=== PATIENT | female | born 1935 | race Caucasian/White ===

== ENCOUNTER 2016-10-11 09:37 | Inpatient (IN) | payer OTHER, MEDICARE ==
[~2016-10-11] VITALS: Ht 149.9 cm; Wt 55.0 kg
[2016-10-11] VITALS (7 sets, daily range): BP systolic 126–164; BP diastolic 57–68; PULSE 74–119; RESP 16–20; TEMP 97.5–98.5; O2SAT 94–98
[~2016-10-11 09:37] MED LIST: CART240C4 PO; CITRTAB8 PO; GLUCTAB OR; HYDR12.57 PO; LISI-360 PO; NEXI40CA PO
[2016-10-11] MEDS ORDERED: MECLIZINE HCL 25 MG TAB PO ONE (10:30)
[2016-10-11] MEDS ORDERED: MORPHINE SULFATE 4 MG/ML INJ IV PUSH ONE (10:30)
[2016-10-11] MEDS ORDERED: SODIUM CHLORIDE 0.9% FLUSH 10 ML FLUSH IV FLUSH PRN ×2 (10:30→14:00)
--- NOTE | 2016-10-11 11:07 | PD ---
HPI Chief Complaint: Dizziness Time Seen by Provider: 10:29 Travel History International Travel<30 days: No Contact w/Intl Traveler<30days: No Traveled to known affect area: No History of Present Illness HPI 80yo F with PMH of vertigo presents to the ED with multiple complaints. States she has been falling frequently and her last fall was 3 days ago and she hit her head. She has a history of vertigo and always feels dizzy. Also with chronic abdominal pain. Pt has diffuse pain in her abdomen and also back. She states that she also always feels sob but not more sob right now. States she had throbbing left sided chest pain 2-3 days ago but no chest pain now. Denies any fever, nausea, vomiting, focal weakness or numbness. PFSH Past Medical History Blood Disorders: No Heart Rhythm Problems: No Cancer: No Cardiovascular Problems: Yes High Cholesterol: No Chemotherapy: No Chest Pain: Yes Congestive Heart Failure: No Diabetes: Yes Diminished Hearing: No Endocrine: No Gastrointestinal Disorders: No Genitourinary: No Headaches: Yes Hypertension: Yes Immune Disorder: No Musculoskeletal: No Neurologic: No Psychiatric: No Reproductive: No Respiratory: No Immunizations Current: Yes Radiation Therapy: No Thyroid Disease: No Ulcer: Yes (STOMACH ULCER) Menopausal: Yes Tubal Ligation: Yes Past Surgical History Appendectomy: Yes (1955) Cholecystectomy: Yes (2002) Other Surgery: Yes (BREAST REDUCTION) Social History Alcohol Use: No Tobacco Use: No Substance Use: No Allergies-Medications (Allergen,Severity, Reaction): Coded Allergies: Cipro (Verified Allergy, Severe, RASH, VOMITING, 10/11/16) Reported Meds & Prescriptions Reported Meds & Active Scripts Active Reported Ecotrin Low Strength (Aspirin) 81 Mg Tabdr 81 Mg PO DAILY Meclizine (Meclizine HCl) 25 Mg Tab 25 Mg PO TID PRN Amitriptyline (Amitriptyline HCl) 10 Mg Tab 10-20 Mg PO HS Aricept (Donepezil HCl) 5 Mg Tablet 5 Mg PO DAILY Lisinopril-Hctz 20-25 Mg Tab 1 Tab PO DAILY Omeprazole 40 Mg Cap 40 Mg PO DAILY Bethanechol 25 Mg Tab 12.5 Mg PO QID Take 1hr before meals and at beditime Glipizide ER (Glipizide) 10 Mg Malgorzata 10 Mg PO DAILY Take with breakfast or first main meal of the day Lipitor (Atorvastatin Calcium) 40 Mg Tab 40 Mg PO HS Review of Systems Except as stated in HPI: all other systems reviewed are Neg Physical Exam Narrative GENERAL: 80yo F not in distress. SKIN: Focused skin assessment warm/dry. HEAD: Atraumatic. Normocephalic. EYES: Pupils equal and round at 4mm bilaterally. EOMI. No nystagmus. No scleral icterus. No injection or drainage. ENT: No nasal bleeding or discharge. Mucous membranes pink and moist. NECK: Trachea midline. No JVD. CARDIOVASCULAR: Regular rate and rhythm. No murmur appreciated. RESPIRATORY: No accessory muscle use. Clear to auscultation. Breath sounds equal bilaterally. GASTROINTESTINAL: Abdomen soft, diffuse tenderness to palpation. No rebound tenderness or guarding. MUSCULOSKELETAL: No obvious deformities. No clubbing. No cyanosis. No edema. NEUROLOGICAL: Awake and alert. No obvious cranial nerve deficits. Motor grossly within normal limits. Normal speech. PSYCHIATRIC: Appropriate mood and affect; insight and judgment normal. Data Data Last Documented VS Vital Signs Date Time Temp Pulse Resp B/P Pulse Ox O2 Delivery O2 Flow Rate FiO2 10/11/16 13:56 109 17 133/66 98 Room Air 10/11/16 09:39 97.5 Orders Electrocardiogram (10/11/16 10:00) Basic Metabolic Panel (Bmp) (10/11/16 10:29) Complete Blood Count With Diff (10/11/16 10:29) Lipase (10/11/16 10:29) Prothrombin Time / Inr (Pt) (10/11/16 10:29) Act Partial Throm Time (Ptt) (10/11/16 10:29) Urinalysis - C+S If Indicated (10/11/16 10:29) Ct Abd/Pel W Iv Contrast(Rout) (10/11/16 10:29) Iv Access Insert/Monitor (10/11/16 10:29) Ecg Monitoring (10/11/16 10:29) Oximetry (10/11/16 10:29) Morphine Inj (Morphine Inj) (10/11/16 10:30) Sodium Chloride 0.9% Flush (Ns Flush) (10/11/16 10:30) Troponin I (10/11/16 10:29) Ct Brain W/O Iv Contrast(Rout) (10/11/16 ) Meclizine (Antivert) (10/11/16 10:30) Chest, Single Ap (10/11/16 ) Iohexol 350 Inj (Omnipaque 350 Inj) (10/11/16 13:02) Sodium Chlorid 0.9% 500 Ml Inj (Ns 500 M (10/11/16 13:30) Potassium Chloride (Kcl) (10/11/16 13:30) Place In Observation (10/11/16 ) Vital Signs (Adult) MEJIA.Q4H (10/11/16 13:46) Activity Oob With Assistance (10/11/16 13:46) Laboratory Immunologist / Telemetry MEJIA.Q8H (10/11/16 13:46) Sodium Chloride 0.9% Flush (Ns Flush) (10/11/16 14:00) Sodium Chloride 0.9% Flush (Ns Flush) (10/11/16 21:00) Admit Order (Ed Use Only) (10/11/16 14:00) Labs Laboratory Tests Test 10/11/16 11:00 White Blood Count 7.9 TH/MM3 Red Blood Count 3.91 MIL/MM3 Hemoglobin 12.6 GM/DL Hematocrit 37.1 % Mean Corpuscular Volume 94.9 FL Mean Corpuscular Hemoglobin 32.3 PG Mean Corpuscular Hemoglobin 34.1 % Concent Red Cell Distribution Width 12.4 % Platelet Count 285 TH/MM3 Mean Platelet Volume 7.7 FL Neutrophils (%) (Auto) 78.1 % Lymphocytes (%) (Auto) 14.8 % Monocytes (%) (Auto) 6.7 % Eosinophils (%) (Auto) 0.1 % Basophils (%) (Auto) 0.3 % Neutrophils # (Auto) 6.1 TH/MM3 Lymphocytes # (Auto) 1.2 TH/MM3 Monocytes # (Auto) 0.5 TH/MM3 Eosinophils # (Auto) 0.0 TH/MM3 Basophils # (Auto) 0.0 TH/MM3 CBC Comment DIFF FINAL Differential Comment Prothrombin Time 12.1 SEC Prothromb Time International 1.1 RATIO Ratio Activated Partial 23.3 SEC Thromboplast Time Sodium Level 142 MEQ/L Potassium Level 3.3 MEQ/L Chloride Level 105 MEQ/L Carbon Dioxide Level 24.8 MEQ/L Anion Gap 12 MEQ/L Blood Urea Nitrogen 32 MG/DL Creatinine 0.81 MG/DL Estimat Glomerular Filtration 68 ML/MIN Rate Random Glucose 195 MG/DL Calcium Level 9.9 MG/DL Troponin I 0.15 NG/ML Lipase 160 U/L [facility] Medical Decision Making Medical Screen Exam Complete: Yes Emergency Medical Condition: Yes Interpretation(s) EKG: Sinus tachycardia at 115bpm. Deep T wave inversions III, aVF, V2-V6. TWI are new compared to EKG from 2012. Differential Diagnosis Vertigo vs. posterior stroke vs. arrhythmia vs. chronic abdominal pain Narrative Course 80yo F here with multiple complaints. Pt has been falling more frequently and has generalized pain from falling frequently. Labs reviewed, no leukocytosis. CXR showed no acute acute intrathoracic disease. Labs reviewed, no leukocytosis. Troponin elevated at 0.15. Given the new EKG changes, I am concern for ischemia. Although pt currently does not have chest pain. Last had it about 2-3 days ago. BUN elevated at 32, will give NS IVF. K: 3.3, will replace orally. Discussed with Dr. Blanc from cardiology and recommended to give aspirin, start heparin drip if no contraindications. Cardiology consult placed. Discussed with Dr. Resendez and accepted to his service. Also added a VQ scan to r/o PE. VQ scan negative for PE. CT brain negative. CTa/p results still pending. I talked to CT who said they are looking into. Discussed with Dr. Resendez regarding cardiology recommendations, waiting for official CTa/p result before staring heparin. Pt has already left the ED and I discussed with Dr. Resendez and he will follow up and order medications as indicated. Diagnosis Primary Impression: Elevated troponin Admitting Information Admitting Physician Requests: Admit Ingrid Rashid DO Oct 11, 2016 11:07 Ingrid Rashid DO Oct 11, 2016 11:07
--- NOTE | 2016-10-11 11:11 | RADRPT ---
EXAM DATE/TIME: 10/11/2016 10:47 [facility] COMPARISON: No previous studies available for comparison. INDICATIONS : Short of breath. Patient states she has left upper quadrant chest pain. MEDICAL HISTORY : None. SURGICAL HISTORY : Breast reduction. ENCOUNTER: Initial ACUITY: 3 months PAIN SCORE: 7/10 LOCATION: Bilateral chest FINDINGS: A single view of the chest demonstrates the lungs to be symmetrically aerated without evidence of mas s, infiltrate or effusion. The cardiomediastinal contours are unremarkable. Osseous structures are intact. CONCLUSION: No acute intrathoracic disease. Deandre Horvath MD on October 11, 2016 at 11:10 Board Certified Radiologist. This report was verified electronically.
[2016-10-11 11:24] LABS: AUTOMATED NEUTROPHIL # 6.1 TH/MM3 (1.8-7.7); BASOPHIL % 0.3 % (0.0-2.0); EOSINOPHIL % 0.1 % (0.0-4.0); HEMATOCRIT 37.1 % (35.0-46.0); HEMO FLAGS DIFF FINAL; LYMPH % 14.8 % (9.0-44.0); LYMPHOCYTE # 1.2 TH/MM3 (1.0-4.8); MEAN CELL VOLUME 94.9 FL (80.0-100.0); MEAN CORPUSCULAR HEMOGLOBIN 32.3 PG (27.0-34.0); MEAN CORPUSCULAR HGB CONC 34.1 % (32.0-36.0); MONO % 6.7 % (0.0-8.0); NEUT % 78.1 % (16.0-70.0); PLATELET COUNT 285 TH/MM3 (150-450); RED BLOOD COUNT 3.91 MIL/MM3 (4.00-5.30); RED CELL DISTRIBUTION WIDTH 12.4 % (11.6-17.2); WHITE BLOOD COUNT 7.9 TH/MM3 (4.0-11.0)
[2016-10-11 11:37] LABS: APTT (PATIENT) 23.3 SEC (24.3-30.1); INTERNATIONAL NORMALIZED RATIO 1.1 RATIO; PROTHROMBIN TIME - PATIENT 12.1 SEC (9.8-11.6)
[2016-10-11 11:41] LABS: BICARBONATE 24.8 MEQ/L (21.0-32.0); POTASSIUM 3.3 MEQ/L (3.5-5.1)
[2016-10-11] MEDS ORDERED: IOHEXOL 350 MG/ML 10 ML VIAL (for RAD DIAG) IV ONE (13:02)
[2016-10-11] MEDS ORDERED: POTASSIUM CHLORIDE 20 MEQ CONTROLLED RELEASE TAB PO ONE (13:30)
[2016-10-11] MEDS ORDERED: SODIUM CHLORID 0.9% 500 ML INJ 500 ML IV ONE (13:30)
--- NOTE | 2016-10-11 13:49 | RADRPT ---
EXAM DATE/TIME: 10/11/2016 12:54 [facility] COMPARISON: No previous studies available for comparison. INDICATIONS : Trauma. Fell 3 days ago. RADIATION DOSE: 42.64 CTDIvol (mGy) MEDICAL HISTORY : Diabetes mellitus type 2. Hypertension. SURGICAL HISTORY : Appendectomy. Cholecystectomy.Tubal ligation. ENCOUNTER: Initial ACUITY: 3 days PAIN SCALE: 3/10 LOCATION: cranial TECHNIQUE: Multiple contiguous axial images were obtained of the head. Using automated exposure control and adj ustment of the mA and/or kV according to patient size, radiation dose was kept as low as reasonably a chievable to obtain optimal diagnostic quality images. DICOM format image data is available electro nically for review and comparison. FINDINGS: CEREBRUM: The CSF spaces are prominent. No evidence of midline shift, mass lesion, hemorrhage or acute infarcti on. No extra-axial fluid collections are seen. POSTERIOR FOSSA: The cerebellum and brainstem are intact. The 4th ventricle is midline. The cerebellopontine angle i s unremarkable. EXTRACRANIAL: The visualized portion of the orbits is intact. SKULL: The calvaria is intact. No evidence of skull fracture. CONCLUSION: 1. No evidence of acute infarct, hemorrhage, mass or edema. 2. Generalized volume loss characteristic of an aging brain. Killian Lo MD on October 11, 2016 at 13:45 Board Certified Radiologist. This report was verified electronically.
[2016-10-11] MEDS ORDERED: ASPIRIN 325 MG TAB PO ONE (14:15)
[2016-10-11] MEDS ORDERED: LORazepam 2 MG/ML VIAL IV PUSH ONE (14:45)
--- NOTE | 2016-10-11 14:53 | EKG ---
Date Performed: 10/11/2016 Time Performed: 09:59:29 PTAGE: 80 years EKG: SINUS TACHYCARDIA MODERATE T-WAVE ABNORMALITY, CONSIDER ANTEROLATERAL ISCHEMIA MODERATE T-W AVE ABNORMALITY, CONSIDER INFERIOR ISCHEMIA ABNORMAL ECG NO PREVIOUS TRACING DOCTOR: Zen Danielle Interpretating Date/Time 10/11/2016 14:51:09
--- NOTE | 2016-10-11 16:00 | RADRPT ---
EXAM DATE/TIME: 10/11/2016 15:23 [facility] COMPARISON: No previous studies available for comparison. INDICATIONS : Short of breath and left sided chest pain for 2 days. DOSE: 8.1 mCi Tc99m MAA IV 1.08 mCi Tc99m DTPA aerosol MEDICAL HISTORY : Hypertension. SURGICAL HISTORY : Appendectomy. Cholecystectomy. ENCOUNTER: Initial ACUITY: 2 days PAIN SCALE: 2/10 LOCATION: Left chest TECHNIQUE: Following five minutes of tidal breathing of DTPA aerosol, planar images of the lungs were performed in eight projections. The patient was then injected with MAA, and eight-view perfusion scan was perf ormed. FINDINGS: There is a homogeneous pattern of aerosol delivery to the periphery of both lungs. No focal ventilat ory defects are seen. The perfusion lung scan demonstrates a homogenous pattern of uptake in both lungs. No segmental or s ubsegmental defects are seen. CONCLUSION: Normal examination. Negative for pulmonary embolus. Darwin Arana MD on October 11, 2016 at 15:56 Board Certified Radiologist. This report was verified electronically.
[2016-10-11] MEDS ORDERED: ARIC5TAB2 PO (17:02)
[2016-10-11] MEDS ORDERED: GLIP1TAB51 PO (17:02)
[2016-10-11] MEDS ORDERED: OMEP40CA2 PO (17:02)
[2016-10-11] MEDS ORDERED: LIPI40TA PO (17:02)
[2016-10-11] MEDS ORDERED: LISI20TA3 PO (17:02)
[2016-10-11] MEDS ORDERED: BETH25TA2 PO (17:02)
[2016-10-11] MEDS ORDERED: ASPI-147 PO (17:02)
[2016-10-11] MEDS ORDERED: AMIT10TA6 PO (17:02)
[2016-10-11] MEDS ORDERED: MECL-62 PO (17:02)
--- NOTE | 2016-10-11 19:05 | HHI.HP ---
[facility] Unknown Admission Diagnosis Abdominal pain Diagnoses: Chief Complaint: My belly is inflamed Travel History International Travel<30 Days: No Contact w/Intl Traveler <30 Da: No Traveled to Known Affected Are: No History of Present Illness 80-year-old female being admitted for abdominal pain and elevated troponins. This is a difficult historian, daughter is present and helps out. Patient was in her usual state of health until 3 days ago when her chronic abdominal pain began to worsen and it felt "inflamed." She describes the pain as sharp, epigastric, nonradiating and severe. She says the pain improved with some pill that she cannot name and then also says that eating slightly makes the pain worse. She denies having any diarrhea or vomiting but does report some nausea. Reports having a decreased appetite. Says she takes Aleve quite regularly for her chronic abdominal pain and reports having a problem with constipation which he goes every 2 days. Says she drinks about 3-4 glasses of water a day. She denies having any dysuria, hematuria, hematochezia. Reports having some intermittent chest pain for the past few days as well along with some subjective palpitations that are intermittent. Denies feeling any fever. Reports having some neck pain and leg cramps as well. Daughter does additionally add that the patient had a mechanical fall a few days ago from a sitting position, no loss of consciousness reported. Past Family Social History Past Medical History Diabetes. Hypertension. Reported Medications Reported Meds & Active Scripts Active Reported Ecotrin Low Strength (Aspirin) 81 Mg Tabdr 81 Mg PO DAILY Meclizine (Meclizine HCl) 25 Mg Tab 25 Mg PO TID PRN Amitriptyline (Amitriptyline HCl) 10 Mg Tab 10-20 Mg PO HS Aricept (Donepezil HCl) 5 Mg Tablet 5 Mg PO DAILY Lisinopril-Hctz 20-25 Mg Tab 1 Tab PO DAILY Omeprazole 40 Mg Cap 40 Mg PO DAILY Bethanechol 25 Mg Tab 12.5 Mg PO QID Take 1hr before meals and at beditime Glipizide ER (Glipizide) 10 Mg Malgorzata 10 Mg PO DAILY Take with breakfast or first main meal of the day Lipitor (Atorvastatin Calcium) 40 Mg Tab 40 Mg PO HS Allergies: Coded Allergies: Cipro (Verified Allergy, Severe, RASH, VOMITING, 10/11/16) Family History Hypertension Social History Denies smoking, alcohol use, or illicit drug use Physical Exam Vital Signs Vital Signs Date Time Temp Pulse Resp B/P Pulse Ox O2 Delivery O2 Flow Rate FiO2 10/11/16 18:32 98.5 95 16 141/57 94 10/11/16 17:34 97.7 91 16 126/62 96 10/11/16 13:56 109 17 133/66 98 Room Air 10/11/16 12:00 110 17 146/68 97 Room Air 10/11/16 09:39 97.5 119 20 144/66 97 Physical Exam GENERAL: Slightly anxious, otherwise in no acute distress SKIN: Warm and dry. EYES: Pupils equal and round. No scleral icterus. No injection or drainage. ENT: No nasal bleeding or discharge. Mucous membranes pink and moist. CARDIOVASCULAR: Regular rate and rhythm. no murmurs RESPIRATORY: No accessory muscle use. Clear to auscultation. Breath sounds equal bilaterally. GASTROINTESTINAL: Abdomen soft, mild to moderate lower abdominal and suprapubic tenderness to palpation MUSCULOSKELETAL: Extremities without clubbing, cyanosis, or edema. No obvious deformities. grossly intact ROM with 5/5 strength in upper and lower extremities proximally. Does have left sided upper costal tenderness palpation NEUROLOGICAL: Awake and alert. No obvious cranial nerve deficits. No facial droop nor slurred speech noted. PSYCHIATRIC: Appears slightly anxious but has good insight Laboratory Laboratory Tests Test 10/11/16 11:00 White Blood Count 7.9 Red Blood Count 3.91 Hemoglobin 12.6 Hematocrit 37.1 Mean Corpuscular Volume 94.9 Mean Corpuscular Hemoglobin 32.3 Mean Corpuscular Hemoglobin 34.1 Concent Red Cell Distribution Width 12.4 Platelet Count 285 Mean Platelet Volume 7.7 Neutrophils (%) (Auto) 78.1 Lymphocytes (%) (Auto) 14.8 Monocytes (%) (Auto) 6.7 Eosinophils (%) (Auto) 0.1 Basophils (%) (Auto) 0.3 Neutrophils # (Auto) 6.1 Lymphocytes # (Auto) 1.2 Monocytes # (Auto) 0.5 Eosinophils # (Auto) 0.0 Basophils # (Auto) 0.0 CBC Comment DIFF FINAL Differential Comment Prothrombin Time 12.1 Prothromb Time International 1.1 Ratio Activated Partial 23.3 Thromboplast Time Sodium Level 142 Potassium Level 3.3 Chloride Level 105 Carbon Dioxide Level 24.8 Anion Gap 12 Blood Urea Nitrogen 32 Creatinine 0.81 Estimat Glomerular Filtration 68 Rate Random Glucose 195 Calcium Level 9.9 Troponin I 0.15 Lipase 160 Result Diagram: 10/11/16 1100 10/11/16 1100 Imaging Last Impressions Lung Scan-VQ Nuclear Medicine 10/11/16 0000 Signed Impressions: Service Date/Time: Tuesday, October 11, 2016 15:23 - CONCLUSION: Normal examination. Negative for pulmonary embolus. aDrwin Arana MD Head CT 10/11/16 0000 Signed Impressions: Service Date/Time: Tuesday, October 11, 2016 12:54 - CONCLUSION: 1. No evidence of acute infarct, hemorrhage, mass or edema. 2. Generalized volume loss characteristic of an aging brain. Killian Lo MD Chest X-Ray 10/11/16 0000 Signed Impressions: Service Date/Time: Tuesday, October 11, 2016 10:47 - CONCLUSION: No acute intrathoracic disease. Deandre Horvath MD Assessment and Plan Problem List: (1) Elevated troponin ICD Code: R74.8 Status: Acute (2) Constipation ICD Code: K59.00 Status: Chronic (3) Diabetes ICD Code: E11.9 Status: Chronic (4) Abdominal pain ICD Code: R10.9 Status: Acute (5) Hypertension ICD Code: I10 Status: Chronic Assessment and Plan 80-year-old female being admitted for abdominal pain (acute on chronic ) and elevated troponin 1. Abdominal pain - initial workup in ER including imaging is quite unremarkable, history suggests the patient is constipated possible NSAID overuse. Obtaining LFTs and H. pylori stool antigen. Troponin is elevated, cardiology feels that this may be due to dehydration, see below. CT abdomen discussed with radiology report that biliary duct has chronic dilatation at 14 mm, no signs of any acute process involved currently. We'll treat the patient aggressively for constipation to address any component of her pain at this may be contributing to, started with MiraLAX and a glycerin suppository. Starting Protonix IV daily. IV hydration with clear liquids as tolerated. Zofran when necessary. 2. Elevated troponin with T-wave inversions - cardiology consult, feel that this may be more so due to dehydration than ACS. We'll follow-up with repeat cardiac enzymes. Feel that her chest pain is actually musculoskeletal based upon examination and not truly anginal in origin. VQ scan is negative. Received aspirin in ED, we'll hold off on heparin drip per cardiology for now, we'll make nothing by mouth after midnight and reassess patient's cardiac status in a.m. 3. Hypertension - monitor, restart home BP meds if elevated 4. Diabetes - hold home glipizide, implement low-dose sliding scale with fingersticks Physician Certification 2 Midnight Certification Type: Continued Stay Order for Inpatient Services The services are ordered in accordance with Medicare regulations or non- Medicare payer requirements, as applicable. In the case of services not specified as inpatient-only, they are appropriately provided as inpatient services in accordance with the 2-midnight benchmark. Estimated LOS (days): 2 2 days is the estimated time the patient will need to remain in the hospital, assuming treatment plan goals are met and no additional complications. Post-Hospital Plan: Home Cameron Rojas MD Oct 11, 2016 19:04
[2016-10-11 19:09] LABS: INDIRECT BILIRUBIN 0.3 MG/DL (0.0-0.8); TOTAL BILIRUBIN ADULT 0.6 MG/DL (0.2-1.0)
[2016-10-11] MEDS ORDERED: MECLIZINE HCL 25 MG TAB PO PRN (19:15)
--- NOTE | 2016-10-11 19:17 | RADRPT ---
EXAM DATE/TIME: 10/11/2016 12:59 [facility] COMPARISON: MRCP W/O CONTRAST, July 14, 2010, 8:41. INDICATIONS : Trauma. Fell 3 days ago. Abdominal pain. IV CONTRAST: 95 cc Omnipaque 350 (iohexol) IV ORAL CONTRAST: No oral contrast ingested. RADIATION DOSE: 5.23 CTDIvol (mGy) MEDICAL HISTORY : Diabetes mellitus type 2. Hypertension. SURGICAL HISTORY : Appendectomy. Cholecystectomy.Tubal ligation. ENCOUNTER: Initial ACUITY: 3 days PAIN SCALE: 10/10 LOCATION: Abdomen TECHNIQUE: Volumetric scanning of the abdomen and pelvis was performed. Using automated exposure control and ad justment of the mA and/or kV according to patient size, radiation dose was kept as low as reasonably achievable to obtain optimal diagnostic quality images. DICOM format image data is available electro nically for review and comparison. FINDINGS: Limited demonstrate minimal dependent atelectasis. There is biliary ductal dilatation with common bile duct measuring about 14 mm, similar in size to 20 11 probably related to prior cholecystectomy. No focal liver lesions. Spleen, adrenals, kidneys and p ancreas unremarkable. No free fluid. No bowel obstruction. No adenopathy. No acute bony abnormalities. CONCLUSION: 1. No acute findings. Biliary ductal dilatation similar to 2010, status post cholecystectomy. No acut e traumatic injury identified within the abdomen and pelvis. Darwin Arana MD on October 11, 2016 at 19:12 Board Certified Radiologist. This report was verified electronically.
[2016-10-11] MEDS ORDERED: GLUCAGON 1 MG/ML VIAL OTHER PRN (19:30)
[2016-10-11] MEDS ORDERED: DEXTROSE 50% IN WATER 50 ML VIAL(D50) IV PRN (19:30)
[2016-10-11] MEDS: INSULIN ASPART SUPPLEMENTAL SCALE SQ SCH (20:24)
[2016-10-11] MEDS: SODIUM CHLORIDE 0.9% FLUSH 10 ML FLUSH IV FLUSH SCH (20:24)
[2016-10-11] MEDS: SODIUM CHLOR 0.9% 1000 ML INJ 1,000 ML IV SCH (20:24)
[2016-10-11] MEDS ORDERED: PILL SPLITTER OTHER PRN (20:45)
--- NOTE | 2016-10-11 21:26 | MB ---
cc: ELY HAMMER MD DATE OF CONSULTATION: 10/11/2016 REASON FOR CONSULTATION: Elevated troponin. HISTORY OF PRESENT ILLNESS Ms. Matthew is an 80 year-old female who I follow with for bradycardia. She presented to the emergency room with multiple complaints. She has had three days of abdominal pain with nausea and a low grade fever. Over the last few days she has also fallen and hit her head. She denies any chest pain to me. She has also not had any diarrhea. Per the record she was noted to have complained of chest pain a couple of days ago, however, she did not report this to me. PAST MEDICAL HISTORY: Significant for 1. Bradycardia. 2. Atypical chest pain. 3. Normal stress test several years ago. 4. Headache. 5. Gastric ulcer. 6. Hyperlipidemia. 7. Diabetes. 8. Hypertension. 9. Alzheimer's PAST SURGICAL HISTORY: 1. Appendectomy 2. Cholecystectomy. 3. Breast reduction. SOCIAL HISTORY: The patient does not drink or smoke. ALLERGIES CIPRO OUTPATIENT MEDICATIONS: 1. Meclizine 2. Amitriptyline. 3. Aricept. 4. Lisinopril. 5. Hydrochlorothiazide. 6. Omeprazole 7. Bethanechol. 8. Glipizide. 9. Lipitor. REVIEW OF SYSTEMS: Except as mentioned in the HPI all 12 systems are negative. PHYSICAL EXAMINATION: Vital signs: 100, 126/70. GENERAL: She is a well-appearing female who is in no apparent distress. NECK: Free from JVD. LUNGS: Bilaterally clear to auscultation. CARDIOVASCULAR: She has a normal S1-S2. She is mildly tachycardiac. ABDOMEN: Soft, mildly tender. EXTREMITIES: Free from edema. LABORATORY VALUES: Significant for a potassium of 3.3. Her BUN is 32 and creatinine is 0.81. Troponin is 0.15. EKG: Shows sinus tachycardia with moderate ST depression. IMPRESSION: Elevated troponin. The patient does not have any chest pain. She did present with tachycardia that has improved. The elevated enzymes may be related to the tachycardia versus ischemia, versus skeletal muscle, versus other. At this point she does appear tachycardiac and is likely related to the dehydration. I would like to hydrate her and obtain serial enzymes with the CKMB as well. Further evaluation will be pending results of her studies. Dwaine Navarro /5:45 PM /9:08 PM
[2016-10-11] MEDS: PANTOPRAZOLE SODIUM 40 MG VIAL IV PUSH SCH (23:12)
[2016-10-11] MEDS: POLYETHYLENE GLYCOL 17 GM PKG PO SCH (23:12)
[2016-10-11] MEDS: AMITRIPTYLINE HCL 10 MG TAB PO SCH (23:12)
[2016-10-11] MEDS: GLYCERIN ADULT 2 GM SUPP RECTAL SCH (23:12)
[2016-10-11] MEDS: ATORVASTATIN 40 MG TAB PO SCH (23:13)
[2016-10-11] MEDS: BETHANECHOL CHL 25 MG TAB PO SCH (23:13)
[2016-10-12] VITALS (14 sets, daily range): BP systolic 109–156; BP diastolic 53–78; PULSE 61–119; RESP 16–18; TEMP 97.7–98.8; O2SAT 97–100
[2016-10-12] MEDS: SODIUM CHLOR 0.9% 1000 ML INJ 1,000 ML IV SCH (03:27)
[2016-10-12 03:35] LABS: CREATINE KINASE 47 U/L (26-192)
[2016-10-12 05:50] LABS: BLOOD, URINE NEG (NEG); COMMENT (UR) CULT NOT INDICATED; CULTURE IF INDICATED CULT NOT INDICATED; GLUCOSE,URINE NEG (NEG); KETONE, URINE 40 mg/dL (NEG); MUCUS URINE FEW /lpf (OCC); NITRITE,URINE NEG (NEG); URINE COLOR YELLOW (YELLW/STRAW)
--- NOTE | 2016-10-12 06:52 | PD.CARD.PN ---
Subjective Subjective Remarks Pt without CP, + abdominal discomfort, though some better Objective Medications Current Medications Medications (Trade) Dose Ordered Sig/Jordan Route Start Time Stop Time Status Last Admin (NS Flush) 2 ml UNSCH PRN IV FLUSH 10/11/16 14:00 Sodium Chloride 2 ml 2 ml BID IV FLUSH 10/11/16 21:00 10/11/16 20:24 (NS 1000 ml Inj) 1,000 ml @ 100 mls/hr Q10H IV 10/11/16 18:00 10/11/16 20:24 (Glycerin Adult Supp) 2 gm DAILY RECTAL 10/11/16 19:00 10/11/16 23:12 (Miralax) 17 gm DAILY PO 10/11/16 19:00 10/11/16 23:12 (Protonix Inj) 40 mg Q24H IV PUSH 10/11/16 21:00 10/11/16 23:12 (Elavil) 10 mg HS PO 10/11/16 21:00 10/11/16 23:12 (Lipitor) 40 mg HS PO 10/11/16 21:00 10/11/16 23:13 (Urecholine) 12.5 mg QID PO 10/11/16 21:00 10/11/16 23:13 (Aricept) 5 mg DAILY PO 10/12/16 09:00 (Antivert) 25 mg TID PRN PO 10/11/16 19:15 10/11/16 20:23 (D50w (Vial) Inj) 50 ml UNSCH PRN IV 10/11/16 19:30 (Glucagon Inj) 1 mg UNSCH PRN OTHER 10/11/16 19:30 (Pill Splitter) 1 ea UNSCH PRN OTHER 10/11/16 20:45 (Prinivil) 20 mg DAILY PO 10/12/16 09:00 (Hydrodiuril) 25 mg DAILY PO 10/12/16 09:00 Vital Signs / I&O Vital Signs Date Time Temp Pulse Resp B/P Pulse Ox O2 Delivery O2 Flow Rate FiO2 10/12/16 05:54 97.7 66 18 133/64 97 10/12/16 04:07 111 10/12/16 00:47 98.4 67 18 156/78 97 10/12/16 00:18 109 10/11/16 21:10 98.4 74 18 164/63 97 10/11/16 20:04 86 10/11/16 18:32 98.5 95 16 141/57 94 10/11/16 17:34 97.7 91 16 126/62 96 10/11/16 13:56 109 17 133/66 98 Room Air 10/11/16 12:00 110 17 146/68 97 Room Air 10/11/16 09:39 97.5 119 20 144/66 97 Physical Exam GENERAL: Well developed, well nourished. No acute distress. HEENT: Jugular venous pressure is normal. CHEST: Lungs clear to auscultation bilaterally. Unlabored respiratory effort. CARDIAC: tachy rate and rhythm without S3, S4, or murmur. ABDOMEN: Soft,. Bowel sounds present. EXTREMITIES: No clubbing, cyanosis, or edema. Laboratory Laboratory Tests Test 10/11/16 10/11/16 10/11/16 10/12/16 11:00 18:30 23:12 05:15 White Blood Count 7.9 TH/MM3 Red Blood Count 3.91 MIL/MM3 Hemoglobin 12.6 GM/DL Hematocrit 37.1 % Mean Corpuscular Volume 94.9 FL Mean Corpuscular Hemoglobin 32.3 PG Mean Corpuscular Hemoglobin 34.1 % Concent Red Cell Distribution Width 12.4 % Platelet Count 285 TH/MM3 Mean Platelet Volume 7.7 FL Neutrophils (%) (Auto) 78.1 % Lymphocytes (%) (Auto) 14.8 % Monocytes (%) (Auto) 6.7 % Eosinophils (%) (Auto) 0.1 % Basophils (%) (Auto) 0.3 % Neutrophils # (Auto) 6.1 TH/MM3 Lymphocytes # (Auto) 1.2 TH/MM3 Monocytes # (Auto) 0.5 TH/MM3 Eosinophils # (Auto) 0.0 TH/MM3 Basophils # (Auto) 0.0 TH/MM3 CBC Comment DIFF FINAL Differential Comment Prothrombin Time 12.1 SEC Prothromb Time International 1.1 RATIO Ratio Activated Partial 23.3 SEC Thromboplast Time Sodium Level 142 MEQ/L Potassium Level 3.3 MEQ/L Chloride Level 105 MEQ/L Carbon Dioxide Level 24.8 MEQ/L Anion Gap 12 MEQ/L Blood Urea Nitrogen 32 MG/DL Creatinine 0.81 MG/DL Estimat Glomerular Filtration 68 ML/MIN Rate Random Glucose 195 MG/DL Calcium Level 9.9 MG/DL Troponin I 0.15 NG/ML 0.11 NG/ML 0.08 NG/ML Lipase 160 U/L Total Bilirubin 0.6 MG/DL Direct Bilirubin 0.3 MG/DL Indirect Bilirubin 0.3 MG/DL Aspartate Amino Transf 149 U/L (AST/SGOT) Alanine Aminotransferase 116 U/L (ALT/SGPT) Alkaline Phosphatase 133 U/L Total Creatine Kinase 53 U/L 47 U/L Total Protein 7.0 GM/DL Albumin 2.7 GM/DL Urine Color YELLOW Urine Turbidity CLEAR Urine pH 6.0 Urine Specific [place] 1.042 Urine Protein TRACE mg/dL Urine Glucose (UA) NEG mg/dL Urine Ketones 40 mg/dL Urine Occult Blood NEG Urine Nitrite NEG Urine Bilirubin NEG Urine Urobilinogen LESS THAN 2.0 MG/DL Urine Leukocyte Esterase NEG Urine WBC 2 /hpf Urine Mucus FEW /lpf Microscopic Urinalysis Comment CULT NOT INDICATED Imaging Last 72 hours Impressions Abdomen/Pelvis CT 10/11/16 1029 Signed Impressions: Service Date/Time: Tuesday, October 11, 2016 12:59 - CONCLUSION: 1. No acute findings. Biliary ductal dilatation similar to 2011, status post cholecystectomy. No acute traumatic injury identified within the abdomen and pelvis. Darwin Arana MD Lung Scan-VQ Nuclear Medicine 10/11/16 0000 Signed Impressions: Service Date/Time: Tuesday, October 11, 2016 15:23 - CONCLUSION: Normal examination. Negative for pulmonary embolus. Darwin Arana MD Head CT 10/11/16 0000 Signed Impressions: Service Date/Time: Tuesday, October 11, 2016 12:54 - CONCLUSION: 1. No evidence of acute infarct, hemorrhage, mass or edema. 2. Generalized volume loss characteristic of an aging brain. Killian Lo MD Chest X-Ray 10/11/16 0000 Signed Impressions: Service Date/Time: Tuesday, October 11, 2016 10:47 - CONCLUSION: No acute intrathoracic disease. Deandre Horvath MD Assessment and Plan Assessment and Plan Indeterminant Trop- etiology not clear: secondary MT, sub-acute primary MT vs musculoskeletal elevation (not likely with recent CK) -I would like to get a radha nuc stress but she had a VQ scan yesterday, HR too high for CT -ECHO today and likely nuc in am 8 abdominal pain- acute on chronic, per primary team tachycardia- dehydration vs other hypokalemia- follow up bmp, per primary multiple falls- no overt cardiac etiology at this time, no mariusz or HR in 60's on tele Ivanna Blanc MD Oct 12, 2016 06:52
[2016-10-12] MEDS: INSULIN ASPART SUPPLEMENTAL SCALE SQ SCH ×4 (07:00→21:24)
[2016-10-12] MEDS: HYDROCHLOROTHIAZIDE 25 MG TAB PO SCH (08:05)
[2016-10-12] MEDS: DONEPEZIL HCL 5 MG TAB PO SCH (08:06)
[2016-10-12] MEDS: SODIUM CHLORIDE 0.9% FLUSH 10 ML FLUSH IV FLUSH SCH ×2 (08:06→21:19)
[2016-10-12] MEDS: POLYETHYLENE GLYCOL 17 GM PKG PO SCH (08:06)
[2016-10-12] MEDS: BETHANECHOL CHL 25 MG TAB PO SCH ×4 (08:06→21:19)
[2016-10-12] MEDS: GLYCERIN ADULT 2 GM SUPP RECTAL SCH (08:06)
[2016-10-12] MEDS: LISINOPRIL 20 MG TAB PO SCH (08:06)
[2016-10-12] MEDS ORDERED: NON-FORMULARY DRUG (Lisinopril-Hctz 1 TAB) PO SCH (09:00)
--- NOTE | 2016-10-12 09:12 | HHI.PR ---
Subjective Remarks Follow up for abdominal pain and elevated troponin. The patient reports feeling "ok" today. She reports feeling slightly sore throughout her neck secondary to the recent falls. Denies any chest pain, palpitations, shortness fo breath, abdominal pain, nausea/vomiting. She does admit she doesn't really have an appetite. She states she did sleep well last night. She has no other medical complaints at this time. Objective Vitals Vital Signs Date Time Temp Pulse Resp B/P Pulse Ox O2 Delivery O2 Flow Rate FiO2 10/12/16 07:46 98.7 119 18 150/67 99 10/12/16 05:54 97.7 66 18 133/64 97 10/12/16 04:07 111 10/12/16 00:47 98.4 67 18 156/78 97 10/12/16 00:18 109 10/11/16 21:10 98.4 74 18 164/63 97 10/11/16 20:04 86 10/11/16 18:32 98.5 95 16 141/57 94 10/11/16 17:34 97.7 91 16 126/62 96 10/11/16 13:56 109 17 133/66 98 Room Air 10/11/16 12:00 110 17 146/68 97 Room Air 10/11/16 09:39 97.5 119 20 144/66 97 Result Diagram: 10/11/16 1100 10/11/16 1100 Imaging Last Impressions Abdomen/Pelvis CT 10/11/16 1029 Signed Impressions: Service Date/Time: Tuesday, October 11, 2016 12:59 - CONCLUSION: 1. No acute findings. Biliary ductal dilatation similar to 2010, status post cholecystectomy. No acute traumatic injury identified within the abdomen and pelvis. Darwin Arana MD Lung Scan- Nuclear Medicine 10/11/16 0000 Signed Impressions: Service Date/Time: Tuesday, October 11, 2016 15:23 - CONCLUSION: Normal examination. Negative for pulmonary embolus. Darwin Arana MD Head CT 10/11/16 0000 Signed Impressions: Service Date/Time: Tuesday, October 11, 2016 12:54 - CONCLUSION: 1. No evidence of acute infarct, hemorrhage, mass or edema. 2. Generalized volume loss characteristic of an aging brain. Killian Lo MD Chest X-Ray 10/11/16 0000 Signed Impressions: Service Date/Time: Tuesday, October 11, 2016 10:47 - CONCLUSION: No acute intrathoracic disease. Deandre Horvath MD Objective Remarks GENERAL: Well-nourished, well-developed pleasant elderly female patient in [facility]. SKIN: Warm and dry. No rash. HEENT: Normocephalic. Atraumatic.Pupils equal and round. Mucous membranes pink and moist. NECK: Supple. Trachea midline. CARDIOVASCULAR: Tachycardic, regular rhythm. S1, S2 noted. No murmur appreciated. RESPIRATORY: No accessory muscle use. Clear to auscultation. Breath sounds equal bilaterally. GASTROINTESTINAL: Abdomen soft, non-tender, nondistended. Normoactive bowel sounds x4. MUSCULOSKELETAL: No obvious deformities. Extremities without clubbing, cyanosis , or edema. NEUROLOGICAL: Awake and alert. No obvious cranial nerve deficits. Motor grossly within normal limits. 5/5 muscle strength in bilateral upper and lower extremities. Normal speech. Medications and IVs Current Medications Medications (Trade) Dose Ordered Sig/Jordan Route Start Time Stop Time Status Last Admin (NS Flush) 2 ml UNSCH PRN IV FLUSH 10/11/16 14:00 Sodium Chloride 2 ml 2 ml BID IV FLUSH 10/11/16 21:00 10/12/16 08:06 (NS 1000 ml Inj) 1,000 ml @ 100 mls/hr Q10H IV 10/11/16 18:00 10/11/16 20:24 (Glycerin Adult Supp) 2 gm DAILY RECTAL 10/11/16 19:00 10/11/16 23:12 (Miralax) 17 gm DAILY PO 10/11/16 19:00 10/11/16 23:12 (Protonix Inj) 40 mg Q24H IV PUSH 10/11/16 21:00 10/11/16 23:12 (Elavil) 10 mg HS PO 10/11/16 21:00 10/11/16 23:12 (Lipitor) 40 mg HS PO 10/11/16 21:00 10/11/16 23:13 (Urecholine) 12.5 mg QID PO 10/11/16 21:00 10/12/16 08:06 (Aricept) 5 mg DAILY PO 10/12/16 09:00 10/12/16 08:06 (Antivert) 25 mg TID PRN PO 10/11/16 19:15 10/11/16 20:23 (D50w (Vial) Inj) 50 ml UNSCH PRN IV 10/11/16 19:30 (Glucagon Inj) 1 mg UNSCH PRN OTHER 10/11/16 19:30 (Pill Splitter) 1 ea UNSCH PRN OTHER 10/11/16 20:45 (Prinivil) 20 mg DAILY PO 10/12/16 09:00 10/12/16 08:06 (Hydrodiuril) 25 mg DAILY PO 10/12/16 09:00 10/12/16 08:05 A/P Problem List: (1) Elevated troponin ICD Code: R74.8 Status: Acute (2) Constipation ICD Code: K59.00 Status: Chronic (3) Diabetes ICD Code: E11.9 Status: Chronic (4) Abdominal pain ICD Code: R10.9 Status: Acute (5) Hypertension ICD Code: I10 Status: Chronic Assessment and Plan 80-year-old female with history of diabetes and hypertension, presents with abdominal pain (acute on chronic) and found to have elevated troponin and abnormal EKG Abdominal pain with Transaminitis: Unclear etiology, suspect multifactorial with constipation and gastritis with possible NSAID overuse. -Lipase wnl. LFTs elevated AST 149, ALT 116, AlkPhos 133, check tylenol level -Obtain H. pylori stool antigen. -CT abdomen images reviewed, biliary duct has chronic dilatation at 14 mm, no signs of any acute process. -Treat constipation, started with MiraLAX and glycerin suppository. -Started Protonix IV daily. -Continue IV hydration, antiemetics prn -Check liver U/S -Consult gastroenterology for further evaluation -Continue clear liquid diet for now Elevated troponin, Abnormal EKG with T-wave inversions: no complains of chest pain however +epigastric pain as above. -Trended cardiac enzymes, Troponins 0.15, 0.11, 0.08. EKG with anterolateral T-wave inversions. -Consulted cardiology -Echocardiogram today -Nuclear stress test tomorrow 10/12 (unable to be done today secondary to VQ scan) Hypertension: chronic, slightly elevated -resume home meds including lisinopril, HCTZ Diabetes: chronic, stable -hold home glipizide -Monitor accu-cheks and cover with SSI Sinus Tachycardia: suspect secondary to dehydration -EKG with sinus tachycardia -Continue IVF -monitor electrolytes -Restart patient's cardizem -Cardiology on board Hypokalemia: suspect secondary to recent poor oral intake -given KCl replacement -Monitor BMP, replaced K as needed Multiple Recent Falls: unclear etiology -consult PT -monitor on telemetry DVT Prophylaxis: teds/SCDs Discharge Planning Discharge pending further work up, GI eval, echo, NST tomorrow. Possible discharge in 1-2 days. Kristi Grace PA-C Oct 12, 2016 9:12 am
[2016-10-12] MEDS ORDERED: INFLUENZA VIRUS VACCINE (QUADRIVALENT) 0.5 ML SYR IM ONE (10:00)
--- NOTE | 2016-10-12 10:15 | RADRPT ---
EXAM DATE/TIME: 10/12/2016 09:18 [facility] COMPARISON: MRCP W/O CONTRAST, July 14, 2010, 8:41. CT ABDOMEN & PELVIS W CONTRAST, October 11, 2016, 12:59. EXTERNAL COMPARISON : [facility], US ABDOMEN LIVER, June 14, 2016POI, US ABDOMEN- COMPLETE, 11/11/10, POI, ABDOME N W/CONTRAST,09/22/08, POI, ADDOMEN- COMPLETE, 09/10/08, POI, ABDOMEN-COMPLETE,07/15/08 INDICATIONS : Increased lab values. MEDICAL HISTORY : Chest pain. HTN. Ulcer. Diabetes. SURGICAL HISTORY : Appendectomy. Cholecystectomy. Tubal ligation. Breast reduction. ENCOUNTER: Subsequent ACUITY: 1 day PAIN SCORE: 8/10 LOCATION: Right upper quadrant MEASUREMENTS: LIVER: 12.1 cm length COMMON DUCT: 13 mm RIGHT KIDNEY: 8.7 x 5.1 x 4.7 cm SPLEEN: 6.4 cm length FINDINGS: LIVER: Intrahepatic biliary ductal dilatation. No focal mass COMMON DUCT: Moderately dilated with diameter of about 13 mm GALLBLADDER: Surgically absent PANCREAS: Pancreatic duct is prominent at about 3 mm RIGHT KIDNEY: No hydronephrosis, stone or mass. SPLEEN: No focal lesion. CONCLUSION: Biliary ductal and pancreatic ductal dilatation, similar to prior. Juan Carlos Corona MD on October 12, 2016 at 10:11 Board Certified Radiologist. This report was verified electronically.
--- NOTE | 2016-10-12 10:20 | PD.CONS ---
HPI History of Present Illness This is a 80 year old female with a history of chronic abdominal pain with chronically dilated CBD, constiopation, Guzman's and GERD, who came to the ER for abdominal pain and was admitted for evaluation of abdominal pain with elevated troponin. She was evaluated by cardiology and the plan is for a Lexiscan in the am. She was hospitalized in 2010 for abdominal pain with vomiting and evaluated by Dr. Villegas at that time for elevated LFTs and chronic biliary ductal dilatation. 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 Her LFTs normalize and her HIDA scan was unremarkable. She has been evaluated by Dr. Worley in 2011 for evaluation of chronic abdominal pain and the plan was for a gastric emptying scan, Dexilant 60 mg by mouth daily, monitor LFTs, and if above workup was negative and she continued to have pain consider endoscopic ultrasound. Colonoscopy (21/02) revealed melanosis throughout the colon, medium internal hemorrhoids, moderate external hemorrhoids. It was recommended that she have a repeat colonoscopy in 5 years. Gastric emptying scan (09/09/11)---> negative examination. The patient reports that she has continued to have discussed abdominal pain intermittently for the past several years. She states that it normally comes on about once a month. She describes the pain as an intermittent sharp and sometimes dull ache in her mid and lower abdomen, epigastric area, with radiation to the left side of her anterior chest. She sometimes has associated nausea and vomiting although she denies any at this time. She does have associated reflux and heartburn and states that she has daily symptoms despite taking omeprazole daily and bethanechol. Her symptoms seem to be aggravated by food intake but she has not identified anything that seems to bring on her symptoms. She reports that over the year she's been on multiple medications for this pain but nothing seems to help. She denies any hematemesis, diarrhea, melena, or hematochezia. She does have associated bloating and has occasional constipation. She does not drink alcohol. She is not aware of any history of liver disease. 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 Anxiety Allergic Rhinitis Guzman's esophagus Hypertension GERD Osteoporosis Diabetes Hemorrhoids History of peptic ulcer disease Past Surgical History EGD/colonoscopy ERCP Appendectomy Cholecystectomy Coded Allergies: Cipro (Verified Allergy, Severe, RASH, VOMITING, 10/11/16) Medications Allergies Coded Allergies Type Severity Reaction Last Updated Verified Cipro Allergy Severe RASH, VOMITING 10/11/16 Yes Active Scripts Medications Dose Route/Sig Days Date Category Dose Instructions Ecotrin Low Strength (Aspirin) 81 Mg Tabdr 81 Mg PO DAILY 10/11/16 Reported Meclizine (Meclizine HCl) 25 Mg Tab 25 Mg PO TID PRN 10/11/16 Reported Amitriptyline (Amitriptyline HCl) 10 Mg Tab 10-20 Mg PO HS 10/11/16 Reported Aricept (Donepezil HCl) 5 Mg Tablet 5 Mg PO DAILY 10/11/16 Reported Lisinopril-Hctz 20-25 Mg Tab 1 Tab PO DAILY 10/11/16 Reported Omeprazole 40 Mg Cap 40 Mg PO DAILY 10/11/16 Reported Bethanechol 25 Mg Tab 12.5 Mg PO QID 10/11/16 Reported Take 1hr before meals and at beditime Glipizide ER (Glipizide) 10 Mg [place] 10 Mg PO DAILY 10/11/16 Reported Take with breakfast or first main meal of the day Lipitor (Atorvastatin Calcium) 40 Mg Tab 40 Mg PO HS 10/11/16 Reported Family History Hypertension Social History Denies smoking, alcohol use, or illicit drug use Review of Systems Constitutional: COMPLAINS OF: Diaphoretic episodes, Fatigue, Fever, DENIES: Chills Respiratory: DENIES: Cough Cardiovascular: COMPLAINS OF: Chest pain Gastrointestinal: COMPLAINS OF: Abdominal pain, Constipation, Nausea, Vomiting , Swelling of Abdomen, Heartburn, DENIES: Black stools, Bloody stools, Diarrhea , Hematemesis Musculoskeletal: COMPLAINS OF: Joint pain, Back pain Integumentary: DENIES: Jaundice Hematologic/lymphatic: DENIES: Bruising Psychiatric: DENIES: Confusion GI Exam Vitals I&O Vital Signs Date Time Temp Pulse Resp B/P Pulse Ox O2 Delivery O2 Flow Rate FiO2 10/12/16 07:46 98.7 119 18 150/67 99 10/12/16 05:54 97.7 66 18 133/64 97 10/12/16 04:07 111 10/12/16 00:47 98.4 67 18 156/78 97 10/12/16 00:18 109 10/11/16 21:10 98.4 74 18 164/63 97 10/11/16 20:04 86 10/11/16 18:32 98.5 95 16 141/57 94 10/11/16 17:34 97.7 91 16 126/62 96 10/11/16 13:56 109 17 133/66 98 Room Air 10/11/16 12:00 110 17 146/68 97 Room Air Imaging Last Impressions Abdomen/Pelvis CT 10/11/16 1029 Signed Impressions: Service Date/Time: Tuesday, October 11, 2016 12:59 - CONCLUSION: 1. No acute findings. Biliary ductal dilatation similar to 2011, status post cholecystectomy. No acute traumatic injury identified within the abdomen and pelvis. Darwin Arana MD Lung Scan-V Nuclear Medicine 10/11/16 0000 Signed Impressions: Service Date/Time: Tuesday, October 11, 2016 15:23 - CONCLUSION: Normal examination. Negative for pulmonary embolus. Darwin Arana MD Head CT 10/11/16 0000 Signed Impressions: Service Date/Time: Tuesday, October 11, 2016 12:54 - CONCLUSION: 1. No evidence of acute infarct, hemorrhage, mass or edema. 2. Generalized volume loss characteristic of an aging brain. Killian Lo MD Chest X-Ray 10/11/16 0000 Signed Impressions: Service Date/Time: Tuesday, October 11, 2016 10:47 - CONCLUSION: No acute intrathoracic disease. Deandre Horvath MD Laboratory Test 10/11/16 10/11/16 10/11/16 10/12/16 11:00 18:30 23:12 05:15 White Blood Count 7.9 TH/MM3 Red Blood Count 3.91 MIL/MM3 Hemoglobin 12.6 GM/DL Hematocrit 37.1 % Mean Corpuscular Volume 94.9 FL Mean Corpuscular Hemoglobin 32.3 PG Mean Corpuscular Hemoglobin 34.1 % Concent Red Cell Distribution Width 12.4 % Platelet Count 285 TH/MM3 Mean Platelet Volume 7.7 FL Neutrophils (%) (Auto) 78.1 % Lymphocytes (%) (Auto) 14.8 % Monocytes (%) (Auto) 6.7 % Eosinophils (%) (Auto) 0.1 % Basophils (%) (Auto) 0.3 % Neutrophils # (Auto) 6.1 TH/MM3 Lymphocytes # (Auto) 1.2 TH/MM3 Monocytes # (Auto) 0.5 TH/MM3 Eosinophils # (Auto) 0.0 TH/MM3 Basophils # (Auto) 0.0 TH/MM3 CBC Comment DIFF FINAL Differential Comment Prothrombin Time 12.1 SEC Prothromb Time International 1.1 RATIO Ratio Activated Partial 23.3 SEC Thromboplast Time Sodium Level 142 MEQ/L Potassium Level 3.3 MEQ/L Chloride Level 105 MEQ/L Carbon Dioxide Level 24.8 MEQ/L Anion Gap 12 MEQ/L Blood Urea Nitrogen 32 MG/DL Creatinine 0.81 MG/DL Estimat Glomerular Filtration 68 ML/MIN Rate Random Glucose 195 MG/DL Calcium Level 9.9 MG/DL Troponin I 0.15 NG/ML 0.11 NG/ML 0.08 NG/ML Lipase 160 U/L Total Bilirubin 0.6 MG/DL Direct Bilirubin 0.3 MG/DL Indirect Bilirubin 0.3 MG/DL Aspartate Amino Transf 149 U/L (AST/SGOT) Alanine Aminotransferase 116 U/L (ALT/SGPT) Alkaline Phosphatase 133 U/L Total Creatine Kinase 53 U/L 47 U/L Total Protein 7.0 GM/DL Albumin 2.7 GM/DL Urine Color YELLOW Urine Turbidity CLEAR Urine pH 6.0 Urine Specific [place] 1.042 Urine Protein TRACE mg/dL Urine Glucose (UA) NEG mg/dL Urine Ketones 40 mg/dL Urine Occult Blood NEG Urine Nitrite NEG Urine Bilirubin NEG Urine Urobilinogen LESS THAN 2.0 MG/DL Urine Leukocyte Esterase NEG Urine WBC 2 /hpf Urine Mucus FEW /lpf Microscopic Urinalysis Comment CULT NOT INDICATED Physical Examination HEENT: Normocephalic; atraumatic; no jaundice. CHEST: CTA CARDIAC: RRR ABDOMEN: Soft, mildly bloated, mild epigastric tenderness/mid abdominal tenderness, nontender; no hepatosplenomegaly; bowel sounds are present in all four quadrants. EXTREMITIES: No clubbing, cyanosis, or edema. SKIN: Normal; no rash; no jaundice. [employer]: No focal deficits; alert and oriented times three. Assessment and Plan Plan ASSESSMENT: - Acute on chronic abdominal pain. She has had this pain several years, usually has flares once a month. S/P workup with Dr. Cho in 2010, when she was hospitalized for abdominal pain and vomiting with elevated LFTs and chronic biliary ductal dilatation. 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 Her LFTs normalize and her HIDA scan was unremarkable. She has been evaluated by Dr. Worley in 2011 for evaluation of chronic abdominal pain and the plan was for a gastric emptying scan, Dexilant 60 mg by mouth daily, monitor LFTs, and if above workup was negative and she continued to have pain consider endoscopic ultrasound. Colonoscopy (08/23/11) revealed melanosis throughout the colon, medium internal hemorrhoids, moderate external hemorrhoids. It was recommended that she have a repeat colonoscopy in 5 years. Gastric emptying scan (09/09/11)---> negative examination. Currently on Bethanechol and Omeprazole. Currently having intermittent sharp abdominal pain epigastric area, mid and lower abdomen that radiates to left anterior chest and back. Abdomen/Pelvis CT (10/11/16)---> 1. No acute findings. Biliary ductal dilatation similar to 2011, status post cholecystectomy. No acute traumatic injury identified within the abdomen and pelvis. ? SOD. Will await US results and cardiac workup (stress test). - Elevated LFTs. CT with biliary dilatation similar to 2011, s/p cholecystectomy. US pending. Previously had (+) VAMSI 1:80. T. Bili 0.3, AST 149, ALT 116, Alk Phosph 133. Will get liver workup to rule out underlying liver disease. ? SOD. - Chronically dilated CBD. S/P ERCP as above. Await US. - Elevated troponin. Cardiology following, plan is for lexiscan tomorrow. - HTN, Anxiety, DM per attending. PLAN: - Clear liquids today, NPO after MN for stress test - Await US - Hepatitis profile - AFP level - VAMSI, ASMA, AMA - Ceruloplasmin, Alpha 1 antitrypsin - Ferritin, Iron studies - Monitor cbc, lft - Further recommendations to follow after results of above and after cardiac workup - Pt seen and examined by Dr. Snell and myself and this note is written on his behalf Beena Osorio Oct 12, 2016 10:20
[2016-10-12] MEDS ORDERED: DILTIAZEM-CD 240 MG CAP ER PO SCH (10:30)
[2016-10-12] MEDS ORDERED: DILTIAZEM HCL 60 MG TAB PO ONE (10:30)
[2016-10-12] MEDS: D5-1/2 NS + KCL 20 MEQ INJ 1,000 ML IV SCH ×2 (10:33→19:15)
[2016-10-12 12:08] LABS: ALT (GPT) 118 U/L (10-53); ANION GAP 11 MEQ/L (5-15); AST (GOT) 120 U/L (15-37); BICARBONATE 23.3 MEQ/L (21.0-32.0); BLOOD UREA NITROGEN 30 MG/DL (7-18); CHLORIDE 108 MEQ/L (98-107); GLOMERULAR FILTRATION RATE 109 ML/MIN (>89); MAGNESIUM 1.6 MG/DL (1.5-2.5); POTASSIUM 3.4 MEQ/L (3.5-5.1); SODIUM (NA) 142 MEQ/L (136-145)
[2016-10-12 12:13] LABS: ALKALINE PHOSPHATASE 139 U/L (45-117); INDIRECT BILIRUBIN 0.5 MG/DL (0.0-0.8); TOTAL BILIRUBIN ADULT 0.7 MG/DL (0.2-1.0)
[2016-10-12 12:17] LABS: ACETAMINOPHEN LESS THAN 2.0 MCG/ML (10.0-30.0)
[2016-10-12] MEDS: REMOVE OLD PATCH T-DERMAL SCH (16:00)
[2016-10-12] MEDS: NICOTINE 14 MG/24 HR PATCH T-DERMAL SCH (16:00)
[2016-10-12] MEDS ORDERED: ONDANSETRON HCL 4 MG/2 ML VIAL IV PUSH PRN (16:00)
[2016-10-12] MEDS: MAGNESIUM SULFATE 1 GM PREMIX 100 ML IV SCH ×2 (16:47→18:29)
--- NOTE | 2016-10-12 16:56 | ECHRPT ---
Indication: Endocarditis CONCLUSIONS The left ventricular systolic function is low normal with an estimated ejection fraction in the rang e of 50- 55%. Wall thickness is measured at the upper limits of normal. Normal left ventricular size. Mild mitral valve regurgitation. There is moderate tricuspid regurgitation. The estimated pulmonary arterial pressure is 44 mmHg. BP: 133 / 64 HR: 66 Rhythm: Sinus MEASUREMENTS (Male / Female) Normal Values Technical Quality:Good 2D ECHO LV Diastolic Diameter PLAX 3.7 cm 4.2 - 5.9 / 3.9 - 5.3 cm LV Systolic Diameter PLAX 2.8 cm IVS Diastolic Thickness 1.0 cm 0.6 - 1.0 / 0.6 - 0.9 cm LVPW Diastolic Thickness 1.0 cm 0.6 - 1.0 / 0.6 - 0.9 cm LV Relative Wall Thickness 0.5 DOPPLER MR Peak Velocity 384.0 cm/s MR Peak Gradient 59.0 mmHg TR Peak Velocity 293.0 cm/s TR Peak Gradient 34.3 mmHg PV Peak Velocity 125.0 cm/s PV Peak Gradient 6.3 mmHg FINDINGS LEFT VENTRICLE The left ventricular systolic function is low normal with an estimated ejection fraction in the rang e of 50- 55%. Wall thickness is measured at the upper limits of normal. Normal left ventricular size. RIGHT VENTRICLE Normal right ventricular size and systolic function. LEFT ATRIUM The left atrial size is normal. RIGHT ATRIUM The right atrial size is normal. ATRIAL SEPTUM Normal atrial septal thickness without atrial level shunting by limited color doppler interrogation. AORTA The aortic root and proximal ascending aorta are normal in size on limited imaging. MITRAL VALVE Mild mitral valve regurgitation. AORTIC VALVE Trileaflet aortic valve. No aortic valve stenosis or regurgitation. TRICUSPID VALVE There is moderate tricuspid regurgitation. The estimated pulmonary arterial pressure is 44 mmHg. PULMONARY VALVE The pulmonary valve is not well visualized. VESSELS The inferior vena cava is normal in size. PERICARDIUM No pericardial effusion. Cale Cordero MD, FACC (Electronically Signed) Final Date:12 October 2016 16:54
[2016-10-12] MEDS ORDERED: POTASSIUM CHLORIDE 20 MEQ CONTROLLED RELEASE TAB PO ONE (18:00)
[2016-10-12 18:07] LABS: TRANSFERRIN IRON PROFILE 154 MG/DL (200-360)
[2016-10-12 18:09] LABS: FERRITIN 362 NG/ML (8-252)
[2016-10-12] MEDS: AMITRIPTYLINE HCL 10 MG TAB PO SCH (21:19)
[2016-10-12] MEDS: ATORVASTATIN 40 MG TAB PO SCH (21:19)
[2016-10-12] MEDS: PANTOPRAZOLE SODIUM 40 MG VIAL IV PUSH SCH (21:19)
[2016-10-13] VITALS (9 sets, daily range): BP systolic 118–142; BP diastolic 56–73; PULSE 69–90; RESP 18; TEMP 97.8–98.6; O2SAT 99–100
[2016-10-13] MEDS: D5-1/2 NS + KCL 20 MEQ INJ 1,000 ML IV SCH ×2 (04:43→17:39)
[2016-10-13] MEDS: INSULIN ASPART SUPPLEMENTAL SCALE SQ SCH ×4 (06:47→21:00)
[2016-10-13 07:09] LABS: AUTOMATED NEUTROPHIL # 3.9 TH/MM3 (1.8-7.7); BASOPHIL % 0.3 % (0.0-2.0); EOSINOPHIL # 0.1 TH/MM3 (0-0.4); EOSINOPHIL % 1.4 % (0.0-4.0); HEMATOCRIT 30.6 % (35.0-46.0); HEMO FLAGS DIFF FINAL; LYMPH % 19.9 % (9.0-44.0); LYMPHOCYTE # 1.2 TH/MM3 (1.0-4.8); MEAN CELL VOLUME 95.1 FL (80.0-100.0); MEAN CORPUSCULAR HEMOGLOBIN 31.9 PG (27.0-34.0); MEAN CORPUSCULAR HGB CONC 33.5 % (32.0-36.0); MONO % 13.9 % (0.0-8.0); NEUT % 64.5 % (16.0-70.0); PLATELET COUNT 222 TH/MM3 (150-450); RED BLOOD COUNT 3.22 MIL/MM3 (4.00-5.30)
--- NOTE | 2016-10-13 07:13 | PD.CARD.PN ---
Subjective Subjective Remarks Pt reports mild abdominal discomfort Objective Medications Current Medications Medications (Trade) Dose Ordered Sig/Jordan Route Start Time Stop Time Status Last Admin (NS Flush) 2 ml UNSCH PRN IV FLUSH 10/11/16 14:00 10/12/16 15:48 (NS Flush) 2 ml BID IV FLUSH 10/11/16 21:00 10/12/16 21:19 (Glycerin Adult Supp) 2 gm DAILY RECTAL 10/11/16 19:00 10/11/16 23:12 (Miralax) 17 gm DAILY PO 10/11/16 19:00 10/11/16 23:12 (Protonix Inj) 40 mg Q24H IV PUSH 10/11/16 21:00 10/12/16 21:19 (Elavil) 10 mg HS PO 10/11/16 21:00 10/12/16 21:19 (Lipitor) 40 mg HS PO 10/11/16 21:00 10/12/16 21:19 (Urecholine) 12.5 mg QID PO 10/11/16 21:00 10/12/16 21:19 (Aricept) 5 mg DAILY PO 10/12/16 09:00 10/12/16 08:06 (Antivert) 25 mg TID PRN PO 10/11/16 19:15 10/11/16 20:23 (D50w (Vial) Inj) 50 ml UNSCH PRN IV 10/11/16 19:30 (Glucagon Inj) 1 mg UNSCH PRN OTHER 10/11/16 19:30 (Pill Splitter) 1 ea UNSCH PRN OTHER 10/11/16 20:45 (Prinivil) 20 mg DAILY PO 10/12/16 09:00 10/12/16 08:06 Hydrochlorothiazide 25 mg 25 mg DAILY PO 10/12/16 09:00 10/12/16 08:05 (D5-1/2 NS + KCl 20 Meq Inj) 1,000 ml @ 100 mls/hr Q10H IV 10/12/16 09:15 10/13/16 04:43 (Zofran Inj) 4 mg Q6HR PRN IV PUSH 10/12/16 16:00 10/12/16 15:48 (Habitrol 14 Mg Patch.24 Hr) 1 patch DAILY T-DERMAL 10/12/16 16:00 Miscellaneous Information 1 DAILY T-DERMAL 10/12/16 16:00 (Cardizem Cd) 120 mg DAILY PO 10/13/16 09:00 Vital Signs / I&O Vital Signs Date Time Temp Pulse Resp B/P Pulse Ox O2 Delivery O2 Flow Rate FiO2 10/13/16 04:28 97.9 73 18 118/56 99 10/13/16 04:09 83 10/13/16 00:07 73 10/12/16 23:22 97.8 68 18 109/55 99 10/12/16 20:16 68 10/12/16 20:04 98.8 68 18 116/54 98 10/12/16 16:03 70 10/12/16 15:43 97.7 61 18 118/53 99 10/12/16 14:40 80 127/59 10/12/16 14:00 97.9 65 16 134/62 100 10/12/16 12:00 113 10/12/16 08:05 117 10/12/16 07:46 98.7 119 18 150/67 99 Physical Exam GENERAL: Well developed, well nourished. No acute distress. HEENT: Jugular venous pressure is normal. CHEST: Lungs clear to auscultation bilaterally. Unlabored respiratory effort. CARDIAC: regular rate and rhythm without S3, S4, or murmur. ABDOMEN: Soft,. Bowel sounds present. EXTREMITIES: No clubbing, cyanosis, or edema. Laboratory Laboratory Tests Test 10/12/16 10/12/16 11:23 17:19 Sodium Level 142 MEQ/L Potassium Level 3.4 MEQ/L Chloride Level 108 MEQ/L Carbon Dioxide Level 23.3 MEQ/L Anion Gap 11 MEQ/L Blood Urea Nitrogen 30 MG/DL Creatinine 0.54 MG/DL Estimat Glomerular Filtration 109 ML/MIN Rate Random Glucose 94 MG/DL Calcium Level 9.4 MG/DL Magnesium Level 1.6 MG/DL Total Bilirubin 0.7 MG/DL Direct Bilirubin 0.2 MG/DL Indirect Bilirubin 0.5 MG/DL Aspartate Amino Transf 120 U/L (AST/SGOT) Alanine Aminotransferase 118 U/L (ALT/SGPT) Alkaline Phosphatase 139 U/L Total Protein 7.6 GM/DL Albumin 2.7 GM/DL Acetaminophen Level LESS THAN 2.0 MCG/ML Hepatitis A IgM Antibody NEGATIVE Hepatitis B Surface Antigen NEGATIVE Hepatitis B Core IgM Antibody NEGATIVE Hepatitis C Antibody NEGATIVE Iron Level 41 MCG/DL Total Iron Binding Capacity 216 MCG/DL Percent Iron Saturation 19.0 % Ferritin 362 NG/ML Tumor Marker Alpha Fetoprotein 0.7 NG/ML Imaging Last 72 hours Impressions Liver Ultrasound 10/12/16 0000 Signed Impressions: Service Date/Time: Wednesday, October 12, 2016 09:18 - CONCLUSION: Biliary ductal and pancreatic ductal dilatation, similar to prior. Juan Carlos Corona MD Abdomen/Pelvis CT 10/11/16 1029 Signed Impressions: Service Date/Time: Tuesday, October 11, 2016 12:59 - CONCLUSION: 1. No acute findings. Biliary ductal dilatation similar to 2011, status post cholecystectomy. No acute traumatic injury identified within the abdomen and pelvis. Darwin Arana MD Lung Scan-V Nuclear Medicine 10/11/16 0000 Signed Impressions: Service Date/Time: Tuesday, October 11, 2016 15:23 - CONCLUSION: Normal examination. Negative for pulmonary embolus. Darwin Arana MD Head CT 10/11/16 0000 Signed Impressions: Service Date/Time: Tuesday, October 11, 2016 12:54 - CONCLUSION: 1. No evidence of acute infarct, hemorrhage, mass or edema. 2. Generalized volume loss characteristic of an aging brain. Killian Lo MD Chest X-Ray 10/11/16 0000 Signed Impressions: Service Date/Time: Tuesday, October 11, 2016 10:47 - CONCLUSION: No acute intrathoracic disease. Deandre Horvath MD Assessment and Plan Assessment and Plan Indeterminant Trop- etiology not clear: secondary [place], sub-acute primary [place] vs musculoskeletal elevation -radha nuc stress today -ECHO normal EF abdominal pain-GI tachycardia- dehydration => resolved hypokalemia- resolved multiple falls- no overt cardiac etiology at this time, no mariusz or HR in 60's on tele Dispo- ok for d/c if nuc is not ischemic Ivanna Blanc MD Oct 13, 2016 07:13
[2016-10-13 07:43] LABS: ALKALINE PHOSPHATASE 128 U/L (45-117); ALT (GPT) 94 U/L (10-53); ANION GAP 6 MEQ/L (5-15); AST (GOT) 104 U/L (15-37); BICARBONATE 24.4 MEQ/L (21.0-32.0); BLOOD UREA NITROGEN 36 MG/DL (7-18); CHLORIDE 106 MEQ/L (98-107); GLOMERULAR FILTRATION RATE 62 ML/MIN (>89); MAGNESIUM 2.3 MG/DL (1.5-2.5); SODIUM (NA) 136 MEQ/L (136-145); TOTAL BILIRUBIN ADULT 0.8 MG/DL (0.2-1.0)
[2016-10-13 07:48] LABS: POTASSIUM 4.7 MEQ/L (3.5-5.1)
--- NOTE | 2016-10-13 08:42 | HHI.PR ---
Subjective Remarks Follow up for abdominal pain, elevated troponin, elevated LFTs. The patient states she doesn't feel too well this morning. Last night she felt as though she spiked a fever and became nauseous, no vomiting. No documented fevers. She also reports some mild abdominal cramping at the RUQ. Denies any chest pains. She's had multiple BMs which she describes as soft and loose at times, but no diarrhea or blood. She denies any other medical complaints at this time. Objective Vitals Vital Signs Date Time Temp Pulse Resp B/P Pulse Ox O2 Delivery O2 Flow Rate FiO2 10/13/16 07:35 98.6 74 18 118/73 100 10/13/16 04:28 97.9 73 18 118/56 99 10/13/16 04:09 83 10/13/16 00:07 73 10/12/16 23:22 97.8 68 18 109/55 99 10/12/16 20:16 68 10/12/16 20:04 98.8 68 18 116/54 98 10/12/16 16:03 70 10/12/16 15:43 97.7 61 18 118/53 99 10/12/16 14:40 80 127/59 10/12/16 14:00 97.9 65 16 134/62 100 10/12/16 12:00 113 Result Diagram: 10/13/16 0620 10/13/16 0620 Imaging Last Impressions Liver Ultrasound 10/12/16 0000 Signed Impressions: Service Date/Time: Wednesday, October 12, 2016 09:18 - CONCLUSION: Biliary ductal and pancreatic ductal dilatation, similar to prior. Juan Carlos Corona MD Abdomen/Pelvis CT 10/11/16 1029 Signed Impressions: Service Date/Time: Tuesday, October 11, 2016 12:59 - CONCLUSION: 1. No acute findings. Biliary ductal dilatation similar to 2011, status post cholecystectomy. No acute traumatic injury identified within the abdomen and pelvis. Dawrin Arana MD Lung Scan-V Nuclear Medicine 10/11/16 0000 Signed Impressions: Service Date/Time: Tuesday, October 11, 2016 15:23 - CONCLUSION: Normal examination. Negative for pulmonary embolus. Darwin Arana MD Head CT 10/11/16 0000 Signed Impressions: Service Date/Time: Tuesday, October 11, 2016 12:54 - CONCLUSION: 1. No evidence of acute infarct, hemorrhage, mass or edema. 2. Generalized volume loss characteristic of an aging brain. Killian Lo MD Chest X-Ray 10/11/16 0000 Signed Impressions: Service Date/Time: Tuesday, October 11, 2016 10:47 - CONCLUSION: No acute intrathoracic disease. Deandre Horvath MD Objective Remarks GENERAL: Well-nourished, well-developed pleasant elderly female patient in [facility]. SKIN: Warm and dry. No rash. HEENT: Normocephalic. Atraumatic.Pupils equal and round. Mucous membranes pink and moist. NECK: Supple. Trachea midline. CARDIOVASCULAR: Tachycardic, regular rhythm. S1, S2 noted. No murmur appreciated. RESPIRATORY: No accessory muscle use. Clear to auscultation. Breath sounds equal bilaterally. GASTROINTESTINAL: Abdomen soft, nondistended, mild TTP at epigastric/RUQ. Normoactive bowel sounds x4. MUSCULOSKELETAL: No obvious deformities. Extremities without clubbing, cyanosis , or edema. NEUROLOGICAL: Awake and alert. No obvious cranial nerve deficits. Motor grossly within normal limits. Normal speech. Medications and IVs Current Medications Medications (Trade) Dose Ordered Sig/Jordan Route Start Time Stop Time Status Last Admin (NS Flush) 2 ml UNSCH PRN IV FLUSH 10/11/16 14:00 10/12/16 15:48 (NS Flush) 2 ml BID IV FLUSH 10/11/16 21:00 10/12/16 21:19 (Glycerin Adult Supp) 2 gm DAILY RECTAL 10/11/16 19:00 10/11/16 23:12 (Miralax) 17 gm DAILY PO 10/11/16 19:00 10/11/16 23:12 (Protonix Inj) 40 mg Q24H IV PUSH 10/11/16 21:00 10/12/16 21:19 (Elavil) 10 mg HS PO 10/11/16 21:00 10/12/16 21:19 (Lipitor) 40 mg HS PO 10/11/16 21:00 10/12/16 21:19 (Urecholine) 12.5 mg QID PO 10/11/16 21:00 10/12/16 21:19 (Aricept) 5 mg DAILY PO 10/12/16 09:00 10/12/16 08:06 (Antivert) 25 mg TID PRN PO 10/11/16 19:15 10/11/16 20:23 (D50w (Vial) Inj) 50 ml UNSCH PRN IV 10/11/16 19:30 (Glucagon Inj) 1 mg UNSCH PRN OTHER 10/11/16 19:30 (Pill Splitter) 1 ea UNSCH PRN OTHER 10/11/16 20:45 (Prinivil) 20 mg DAILY PO 10/12/16 09:00 10/12/16 08:06 Hydrochlorothiazide 25 mg 25 mg DAILY PO 10/12/16 09:00 10/12/16 08:05 (D5-1/2 NS + KCl 20 Meq Inj) 1,000 ml @ 100 mls/hr Q10H IV 10/12/16 09:15 10/13/16 04:43 (Zofran Inj) 4 mg Q6HR PRN IV PUSH 10/12/16 16:00 10/12/16 15:48 (Habitrol 14 Mg Patch.24 Hr) 1 patch DAILY T-DERMAL 10/12/16 16:00 Miscellaneous Information 1 DAILY T-DERMAL 10/12/16 16:00 (Cardizem Cd) 120 mg DAILY PO 10/13/16 09:00 A/P Problem List: (1) Elevated troponin ICD Code: R74.8 Status: Acute (2) Constipation ICD Code: K59.00 Status: Chronic (3) Diabetes ICD Code: E11.9 Status: Chronic (4) Abdominal pain ICD Code: R10.9 Status: Acute (5) Hypertension ICD Code: I10 Status: Chronic Assessment and Plan 80-year-old female with history of diabetes and hypertension, presents with abdominal pain (acute on chronic) and found to have elevated troponin and abnormal EKG Abdominal pain with Transaminitis: Unclear etiology of elevated LFTs, abdominal pain suspect multifactorial with constipation and gastritis with possible NSAID overuse. -Lipase wnl. LFTs elevated AST 149, ALT 116, AlkPhos 133, Tylenol level wnl, hepatitis panel negative -Obtain H. pylori stool antigen. -CT abdomen images reviewed, biliary duct has chronic dilatation at 14 mm, no signs of any acute process. -Liver U/S reviewed, again shows biliary ductal and pancreatic ductal diltation, similar to prior -Treat constipation, started with MiraLAX and glycerin suppository, constipation relieved. -Started Protonix IV daily. -Continue IV hydration, antiemetics prn -Consult gastroenterology for further evaluation, appreciate recommendations -Continue clear liquid diet for now Elevated troponin, Abnormal EKG with T-wave inversions: no complains of chest pain however +epigastric pain as above. -Trended cardiac enzymes, Troponins 0.15, 0.11, 0.08. EKG with anterolateral T-wave inversions. -Consulted cardiology -Echocardiogram with EF 50-55%, mild MR, moderate TR -Nuclear stress test planned for today -Per Dr. Blanc, ok to d/c from cardiac standpoint today if lexiscan nonischemic Hypertension: chronic, slightly elevated -resume home meds including lisinopril, HCTZ Diabetes: chronic, stable -hold home glipizide -Monitor accu-cheks and cover with SSI Sinus Tachycardia: suspect secondary to dehydration -EKG with sinus tachycardia -Continue IVF -monitor electrolytes -Restart patient's cardizem, patient's HR dropped to low 50s at 240mg dosing , decreased to 120mg -Cardiology on board -HR much improved, now in the 70s Hypokalemia: suspect secondary to recent poor oral intake -given KCl replacement -Monitor BMP, replaced K as needed Multiple Recent Falls: unclear etiology -consult PT -monitor on telemetry DVT Prophylaxis: teds/SCDs Discharge Planning Discharge pending further clinical improvement and work up. Going for nuclear stress test today. Kristi Grace PA-C Oct 13, 2016 8:42 am
[2016-10-13] MEDS: GLYCERIN ADULT 2 GM SUPP RECTAL SCH (09:00)
[2016-10-13] MEDS: NICOTINE 14 MG/24 HR PATCH T-DERMAL SCH ×2 (09:00→13:20)
[2016-10-13] MEDS: REMOVE OLD PATCH T-DERMAL SCH (09:00)
[2016-10-13] MEDS: POLYETHYLENE GLYCOL 17 GM PKG PO SCH (09:00)
--- NOTE | 2016-10-13 11:01 | HHI.GIFU ---
Subjective Remarks Resting in bed. C/O dizziness, weakness. States she got up to use the bedside commode and fell twice earlier today. Nausea without vomiting. Mild epigastric /mid abdominal tenderness. Stress test pending. Objective Vitals I&O Vital Signs Date Time Temp Pulse Resp B/P Pulse Ox O2 Delivery O2 Flow Rate FiO2 10/13/16 07:35 98.6 74 18 118/73 100 10/13/16 04:28 97.9 73 18 118/56 99 10/13/16 04:09 83 10/13/16 00:07 73 10/12/16 23:22 97.8 68 18 109/55 99 10/12/16 20:16 68 10/12/16 20:04 98.8 68 18 116/54 98 10/12/16 16:03 70 10/12/16 15:43 97.7 61 18 118/53 99 10/12/16 14:40 80 127/59 10/12/16 14:00 97.9 65 16 134/62 100 10/12/16 12:00 113 Laboratory Laboratory Tests Test 10/12/16 10/12/16 10/13/16 11:23 17:19 06:20 Sodium Level 142 136 Potassium Level 3.4 4.7 Chloride Level 108 106 Carbon Dioxide Level 23.3 24.4 Anion Gap 11 6 Blood Urea Nitrogen 30 36 Creatinine 0.54 0.88 Estimat Glomerular Filtration 109 62 Rate Random Glucose 94 213 Calcium Level 9.4 8.4 Magnesium Level 1.6 2.3 Total Bilirubin 0.7 0.8 Direct Bilirubin 0.2 Indirect Bilirubin 0.5 Aspartate Amino Transf 120 104 (AST/SGOT) Alanine Aminotransferase 118 94 (ALT/SGPT) Alkaline Phosphatase 139 128 Total Protein 7.6 6.7 Albumin 2.7 2.2 Acetaminophen Level LESS THAN 2.0 Hepatitis A IgM Antibody NEGATIVE Hepatitis B Surface Antigen NEGATIVE Hepatitis B Core IgM Antibody NEGATIVE Hepatitis C Antibody NEGATIVE Iron Level 41 Total Iron Binding Capacity 216 Percent Iron Saturation 19.0 Ferritin 362 Tumor Marker Alpha Fetoprotein 0.7 White Blood Count 6.0 Red Blood Count 3.22 Hemoglobin 10.3 Hematocrit 30.6 Mean Corpuscular Volume 95.1 Mean Corpuscular Hemoglobin 31.9 Mean Corpuscular Hemoglobin 33.5 Concent Red Cell Distribution Width 12.0 Platelet Count 222 Mean Platelet Volume 8.1 Neutrophils (%) (Auto) 64.5 Lymphocytes (%) (Auto) 19.9 Monocytes (%) (Auto) 13.9 Eosinophils (%) (Auto) 1.4 Basophils (%) (Auto) 0.3 Neutrophils # (Auto) 3.9 Lymphocytes # (Auto) 1.2 Monocytes # (Auto) 0.8 Eosinophils # (Auto) 0.1 Basophils # (Auto) 0.0 CBC Comment DIFF FINAL Differential Comment Imaging Last Impressions Liver Ultrasound 10/12/16 0000 Signed Impressions: Service Date/Time: Wednesday, October 12, 2016 09:18 - CONCLUSION: Biliary ductal and pancreatic ductal dilatation, similar to prior. Juan Carlos Corona MD Abdomen/Pelvis CT 10/11/16 1029 Signed Impressions: Service Date/Time: Tuesday, October 11, 2016 12:59 - CONCLUSION: 1. No acute findings. Biliary ductal dilatation similar to 2011, status post cholecystectomy. No acute traumatic injury identified within the abdomen and pelvis. Darwin Arana MD Lung Scan- Nuclear Medicine 10/11/16 0000 Signed Impressions: Service Date/Time: Tuesday, October 11, 2016 15:23 - CONCLUSION: Normal examination. Negative for pulmonary embolus. Darwin Arana MD Head CT 10/11/16 0000 Signed Impressions: Service Date/Time: Tuesday, October 11, 2016 12:54 - CONCLUSION: 1. No evidence of acute infarct, hemorrhage, mass or edema. 2. Generalized volume loss characteristic of an aging brain. Killian Lo MD Chest X-Ray 10/11/16 0000 Signed Impressions: Service Date/Time: Tuesday, October 11, 2016 10:47 - CONCLUSION: No acute intrathoracic disease. Deandre Horvath MD Physical Exam HEENT: Normocephalic; atraumatic; no jaundice. CHEST: CTA CARDIAC: RRR. ABDOMEN: Soft, nondistended, nontender; no hepatosplenomegaly; bowel sounds are present in all four quadrants. EXTREMITIES: No clubbing, cyanosis, or edema. SKIN: Normal; no rash; no jaundice. ISSUER: No focal deficits; alert and oriented times three. Assessment and Plan Plan ASSESSMENT: - Acute on chronic abdominal pain. She has had this pain several years, usually has flares once a month. S/P workup with Dr. Cho in 2010, when she was hospitalized for abdominal pain and vomiting with elevated LFTs and chronic biliary ductal dilatation. 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 Her LFTs normalize and her HIDA scan was unremarkable. She has been evaluated by Dr. Worley in 2011 for evaluation of chronic abdominal pain and the plan was for a gastric emptying scan, Dexilant 60 mg by mouth daily, monitor LFTs, and if above workup was negative and she continued to have pain consider endoscopic ultrasound. Colonoscopy (08/23/11) revealed melanosis throughout the colon, medium internal hemorrhoids, moderate external hemorrhoids. It was recommended that she have a repeat colonoscopy in 5 years. Gastric emptying scan (09/09/11)---> negative examination. Currently on Bethanechol and Omeprazole. Currently having intermittent sharp abdominal pain epigastric area, mid and lower abdomen that radiates to left anterior chest and back. Abdomen/Pelvis CT (10/11/16)---> 1. No acute findings. Biliary ductal dilatation similar to 2011, status post cholecystectomy. No acute traumatic injury identified within the abdomen and pelvis. Liver Ultrasound (10/12/16)----> Biliary ductal and pancreatic ductal dilatation, similar to prior. Spoke with Dr. Andres, will await results of Lexiscan, if negative, will go back down and discuss possible ERCP for further evaluation of chronic CBD dilatation, abdominal pain. - Elevated LFTs. CT with biliary dilatation similar to 2011, s/p cholecystectomy. US pending. Previously had (+) VAMSI 1:80. Hepatitis negative, AFP 0.7, Ferritin 362, Iron saturation 19.0%, VAMSI pending , AMA pending, ASMA pending, Alpha 1 antitrypsin pending, Ceruloplasmin pending. - Chronically dilated CBD. S/P ERCP as above. If stress test negative, will discuss further evaluation with ERCP - Elevated troponin. Cardiology following, lexiscan tomorrow. - HTN, Anxiety, DM per attending. PLAN: - NPO for stress test - Await VAMSI, ASMA, AMA - Await Ceruloplasmin, Alpha 1 antitrypsin - Monitor cbc, lft - If stress test okay, will go back down and talk to patient re: possible ERCP - Further recommendations to follow after results of above and after cardiac workup - Pt seen and examined by Dr. Snell and myself and this note is written on his behalf Beena Osorio Oct 13, 2016 11:01
[2016-10-13] MEDS ORDERED: REGADENOSON INJ 0.4 MG/5 ML SYR ONE (11:15)
--- NOTE | 2016-10-13 12:28 | RADRPT ---
EXAM DATE/TIME: 10/13/2016 10:46 [facility] COMPARISON: No previous studies available for comparison. INDICATIONS : Chest pain. Angina. DOSE: 25.6 mCi Tc99m Myoview at stress. 8.1 mCi Tc99m Myoview at rest. 0.4 mg Lexiscan STRESS SYMPTOMS: Short of breath. EJECTION FRACTION: > 70% MEDICAL HISTORY : Hypertension. Diabetes mellitus type 2. SURGICAL HISTORY : Tubal ligation. Cholecystectomy. Breast reduction. ENCOUNTER: Initial ACUITY: 1 day PAIN SCALE: 2/10 LOCATION: Bilateral chest TECHNIQUE: The patient underwent pharmacologic stress with infusion of prescribed dose. Continuous ECG tracing was monitored during stress. Gated SPECT imaging was performed after stress and conventional SPECT i maging was performed at rest. The examination was performed on a SPECT/CT scanner, both attenuation and non-corrected datasets were reviewed. FINDINGS: DISTRIBUTION: The maximum perfused segment at stress is in the posterobasal wall. PERFUSION STUDY: The pattern of perfusion at stress is within normal limits. GATED STUDY: There is intact wall motion and thickening without hypokinetic or dyskinetic segments. CONCLUSION: Normal examination. RISK CATEGORY: Low (<1% Annual Mortality Rate) Juan Carlos Corona MD on October 13, 2016 at 12:24 Board Certified Radiologist. This report was verified electronically.
[2016-10-13] MEDS: BETHANECHOL CHL 25 MG TAB PO SCH ×4 (13:00→21:36)
[2016-10-13] MEDS: SODIUM CHLORIDE 0.9% FLUSH 10 ML FLUSH IV FLUSH SCH ×2 (13:13→21:00)
[2016-10-13] MEDS: DONEPEZIL HCL 5 MG TAB PO SCH (13:14)
[2016-10-13] MEDS: HYDROCHLOROTHIAZIDE 25 MG TAB PO SCH (13:15)
[2016-10-13] MEDS: LISINOPRIL 20 MG TAB PO SCH (13:16)
[2016-10-13] MEDS: DILTIAZEM-CD 120 MG CAP ER PO SCH (13:16)
[2016-10-13 16:59] LABS: C. DIFF EPI 027 PRESUMPTIVE NEGATIVE (NEGATIVE); C. DIFF TOXIN PCR NEGATIVE (NEGATIVE)
[2016-10-13] MEDS: PANTOPRAZOLE SODIUM 40 MG VIAL IV PUSH SCH (21:34)
[2016-10-13] MEDS: AMITRIPTYLINE HCL 10 MG TAB PO SCH (21:35)
[2016-10-13] MEDS: ATORVASTATIN 40 MG TAB PO SCH (21:36)
[2016-10-14] VITALS (10 sets, daily range): BP systolic 125–149; BP diastolic 61–71; PULSE 63–100; RESP 16–20; TEMP 97.8–98.7; O2SAT 98–99
[2016-10-14] MEDS: D5-1/2 NS + KCL 20 MEQ INJ 1,000 ML IV SCH ×3 (01:14→21:03)
[2016-10-14 06:02] LABS: AUTOMATED NEUTROPHIL # 2.6 TH/MM3 (1.8-7.7); BASOPHIL % 0.4 % (0.0-2.0); EOSINOPHIL # 0.2 TH/MM3 (0-0.4); EOSINOPHIL % 3.8 % (0.0-4.0); HEMATOCRIT 30.7 % (35.0-46.0); HEMO FLAGS DIFF FINAL; LYMPH % 28.6 % (9.0-44.0); LYMPHOCYTE # 1.5 TH/MM3 (1.0-4.8); MEAN CELL VOLUME 93.9 FL (80.0-100.0); MEAN CORPUSCULAR HEMOGLOBIN 32.5 PG (27.0-34.0); MEAN CORPUSCULAR HGB CONC 34.6 % (32.0-36.0); MONO % 15.3 % (0.0-8.0); NEUT % 51.9 % (16.0-70.0); PLATELET COUNT 211 TH/MM3 (150-450); RED BLOOD COUNT 3.27 MIL/MM3 (4.00-5.30); WHITE BLOOD COUNT 5.1 TH/MM3 (4.0-11.0)
[2016-10-14 06:20] LABS: ALKALINE PHOSPHATASE 127 U/L (45-117); ALT (GPT) 92 U/L (10-53); ANION GAP 5 MEQ/L (5-15); AST (GOT) 81 U/L (15-37); BICARBONATE 27.2 MEQ/L (21.0-32.0); BLOOD UREA NITROGEN 16 MG/DL (7-18); CHLORIDE 107 MEQ/L (98-107); GLOMERULAR FILTRATION RATE 138 ML/MIN (>89); POTASSIUM 3.5 MEQ/L (3.5-5.1); SODIUM (NA) 139 MEQ/L (136-145); TOTAL BILIRUBIN ADULT 0.6 MG/DL (0.2-1.0)
[2016-10-14] MEDS: INSULIN ASPART SUPPLEMENTAL SCALE SQ SCH ×4 (07:00→21:00)
[2016-10-14] MEDS: POLYETHYLENE GLYCOL 17 GM PKG PO SCH (07:39)
[2016-10-14] MEDS: GLYCERIN ADULT 2 GM SUPP RECTAL SCH (07:39)
[2016-10-14] MEDS: REMOVE OLD PATCH T-DERMAL SCH (07:40)
[2016-10-14] MEDS: NICOTINE 14 MG/24 HR PATCH T-DERMAL SCH (07:41)
--- NOTE | 2016-10-14 08:02 | PD.CARD.PN ---
Subjective Subjective Remarks Pt without CV complaints Objective Medications Current Medications Medications (Trade) Dose Ordered Sig/Jordan Route Start Time Stop Time Status Last Admin (NS Flush) 2 ml UNSCH PRN IV FLUSH 10/11/16 14:00 10/12/16 15:48 (NS Flush) 2 ml BID IV FLUSH 10/11/16 21:00 10/13/16 13:13 (Glycerin Adult Supp) 2 gm DAILY RECTAL 10/11/16 19:00 10/11/16 23:12 (Miralax) 17 gm DAILY PO 10/11/16 19:00 10/11/16 23:12 (Protonix Inj) 40 mg Q24H IV PUSH 10/11/16 21:00 10/13/16 21:34 (Elavil) 10 mg HS PO 10/11/16 21:00 10/13/16 21:35 (Lipitor) 40 mg HS PO 10/11/16 21:00 10/13/16 21:36 (Urecholine) 12.5 mg QID PO 10/11/16 21:00 10/13/16 21:36 (Aricept) 5 mg DAILY PO 10/12/16 09:00 10/13/16 13:14 (Antivert) 25 mg TID PRN PO 10/11/16 19:15 10/11/16 20:23 (D50w (Vial) Inj) 50 ml UNSCH PRN IV 10/11/16 19:30 (Glucagon Inj) 1 mg UNSCH PRN OTHER 10/11/16 19:30 (Pill Splitter) 1 ea UNSCH PRN OTHER 10/11/16 20:45 (Prinivil) 20 mg DAILY PO 10/12/16 09:00 10/13/16 13:16 Hydrochlorothiazide 25 mg 25 mg DAILY PO 10/12/16 09:00 10/13/16 13:15 (D5-1/2 NS + KCl 20 Meq Inj) 1,000 ml @ 100 mls/hr Q10H IV 10/12/16 09:15 10/14/16 01:14 (Zofran Inj) 4 mg Q6HR PRN IV PUSH 10/12/16 16:00 10/12/16 15:48 (Habitrol 14 Mg Patch.24 Hr) 1 patch DAILY T-DERMAL 10/12/16 16:00 Miscellaneous Information 1 DAILY T-DERMAL 10/12/16 16:00 (Cardizem Cd) 120 mg DAILY PO 10/13/16 09:00 10/13/16 13:16 Vital Signs / I&O Vital Signs Date Time Temp Pulse Resp B/P Pulse Ox O2 Delivery O2 Flow Rate FiO2 10/14/16 07:56 98.7 98 16 145/62 99 10/14/16 04:20 98.7 80 18 128/71 98 10/14/16 04:00 82 10/14/16 00:10 97.8 73 16 149/67 99 10/14/16 00:00 63 10/13/16 21:12 97.8 69 18 142/63 100 10/13/16 20:00 80 10/13/16 17:12 84 10/13/16 15:21 98.5 90 18 137/63 99 Physical Exam GENERAL: Well developed, well nourished. No acute distress. HEENT: Jugular venous pressure is normal. CHEST: Lungs clear to auscultation bilaterally. Unlabored respiratory effort. CARDIAC: regular rate and rhythm without S3, S4, or murmur. ABDOMEN: Soft,. Bowel sounds present. EXTREMITIES: No clubbing, cyanosis, or edema. Laboratory Laboratory Tests Test 10/13/16 10/14/16 14:45 05:25 Stool C. difficile Toxin (PCR) NEGATIVE Stl C. difficile Toxin PRESUMPTIVE Epiderm 027 NEGATIVE White Blood Count 5.1 TH/MM3 Red Blood Count 3.27 MIL/MM3 Hemoglobin 10.6 GM/DL Hematocrit 30.7 % Mean Corpuscular Volume 93.9 FL Mean Corpuscular Hemoglobin 32.5 PG Mean Corpuscular Hemoglobin 34.6 % Concent Red Cell Distribution Width 12.0 % Platelet Count 211 TH/MM3 Mean Platelet Volume 8.6 FL Neutrophils (%) (Auto) 51.9 % Lymphocytes (%) (Auto) 28.6 % Monocytes (%) (Auto) 15.3 % Eosinophils (%) (Auto) 3.8 % Basophils (%) (Auto) 0.4 % Neutrophils # (Auto) 2.6 TH/MM3 Lymphocytes # (Auto) 1.5 TH/MM3 Monocytes # (Auto) 0.8 TH/MM3 Eosinophils # (Auto) 0.2 TH/MM3 Basophils # (Auto) 0.0 TH/MM3 CBC Comment DIFF FINAL Differential Comment Sodium Level 139 MEQ/L Potassium Level 3.5 MEQ/L Chloride Level 107 MEQ/L Carbon Dioxide Level 27.2 MEQ/L Anion Gap 5 MEQ/L Blood Urea Nitrogen 16 MG/DL Creatinine 0.44 MG/DL Estimat Glomerular Filtration 138 ML/MIN Rate Random Glucose 119 MG/DL Calcium Level 8.2 MG/DL Total Bilirubin 0.6 MG/DL Aspartate Amino Transf 81 U/L (AST/SGOT) Alanine Aminotransferase 92 U/L (ALT/SGPT) Alkaline Phosphatase 127 U/L Total Protein 6.4 GM/DL Albumin 2.3 GM/DL Imaging Last 72 hours Impressions Myocardial Perfusion Scan Nuc Med 10/13/16 0000 Signed Impressions: Service Date/Time: October 10:46 - CONCLUSION: Normal examination. RISK CATEGORY: Low (<1%% Annual Mortality Rate) Juan Carlos Corona MD Liver Ultrasound 10/12/16 0000 Signed Impressions: Service Date/Time: Wednesday, October 12, 2016 09:18 - CONCLUSION: Biliary ductal and pancreatic ductal dilatation, similar to prior. Juan Carlos Corona MD Abdomen/Pelvis CT 10/11/16 1029 Signed Impressions: Service Date/Time: Tuesday, October 11, 2016 12:59 - CONCLUSION: 1. No acute findings. Biliary ductal dilatation similar to 2011, status post cholecystectomy. No acute traumatic injury identified within the abdomen and pelvis. Darwin Arana MD Assessment and Plan Assessment and Plan Indeterminant Trop- etiology not clear: secondary TN, sub-acute primary TN vs musculoskeletal elevation -radha nuc normal -ECHO normal EF abdominal pain-GI tachycardia- dehydration => resolved hypokalemia- resolved multiple falls- no overt cardiac etiology at this time, no mariusz or HR in 60's on tele Dispo- ok for cydney/Ivanna Wright MD Oct 14, 2016 08:01
[2016-10-14] MEDS: DILTIAZEM-CD 120 MG CAP ER PO SCH (08:37)
[2016-10-14] MEDS: SODIUM CHLORIDE 0.9% FLUSH 10 ML FLUSH IV FLUSH SCH ×2 (08:37→21:00)
[2016-10-14] MEDS: BETHANECHOL CHL 25 MG TAB PO SCH ×4 (08:37→21:02)
[2016-10-14] MEDS: HYDROCHLOROTHIAZIDE 25 MG TAB PO SCH (08:37)
[2016-10-14] MEDS: LISINOPRIL 20 MG TAB PO SCH (08:38)
[2016-10-14] MEDS: DONEPEZIL HCL 5 MG TAB PO SCH (08:38)
--- NOTE | 2016-10-14 09:08 | HHI.PR ---
Subjective Remarks Follow-up for acute on chronic abdominal pain. The patient states that she has had abdominal pain for quite some time. She states that the abdominal pain is exacerbated by anything she tries to eat. She denies any vomiting. Objective Vitals Vital Signs Date Time Temp Pulse Resp B/P Pulse Ox O2 Delivery O2 Flow Rate FiO2 10/14/16 07:56 98.7 98 16 145/62 99 10/14/16 04:20 98.7 80 18 128/71 98 10/14/16 04:00 82 10/14/16 00:10 97.8 73 16 149/67 99 10/14/16 00:00 63 10/13/16 21:12 97.8 69 18 142/63 100 10/13/16 20:00 80 10/13/16 17:12 84 10/13/16 15:21 98.5 90 18 137/63 99 Result Diagram: 10/14/16 0525 10/14/16 0525 Imaging Last Impressions Myocardial Perfusion Scan Nuc Med 10/13/16 0000 Signed Impressions: Service Date/Time: October 10:46 - CONCLUSION: Normal examination. RISK CATEGORY: Low (<1%% Annual Mortality Rate) Juan Carlos Corona MD Liver Ultrasound 10/12/16 0000 Signed Impressions: Service Date/Time: Wednesday, October 12, 2016 09:18 - CONCLUSION: Biliary ductal and pancreatic ductal dilatation, similar to prior. Juan Carlos Corona MD Abdomen/Pelvis CT 10/11/16 1029 Signed Impressions: Service Date/Time: Tuesday, October 11, 2016 12:59 - CONCLUSION: 1. No acute findings. Biliary ductal dilatation similar to 2010, status post cholecystectomy. No acute traumatic injury identified within the abdomen and pelvis. Darwin Arana MD Lung Scan-V Nuclear Medicine 10/11/16 0000 Signed Impressions: Service Date/Time: Tuesday, October 11, 2016 15:23 - CONCLUSION: Normal examination. Negative for pulmonary embolus. Darwin Arana MD Head CT 10/11/16 0000 Signed Impressions: Service Date/Time: Tuesday, October 11, 2016 12:54 - CONCLUSION: 1. No evidence of acute infarct, hemorrhage, mass or edema. 2. Generalized volume loss characteristic of an aging brain. Killian Lo MD Chest X-Ray 10/11/16 0000 Signed Impressions: Service Date/Time: Tuesday, October 11, 2016 10:47 - CONCLUSION: No acute intrathoracic disease. Deandre Horvath MD Objective Remarks GENERAL: Well-developed well-nourished. In no acute distress. SKIN: Warm and dry. No lesions noted. HEENT: Normocephalic. Pupils equal and round. Mucous membranes pink and moist. CARDIOVASCULAR: Regular rate and rhythm. No murmur appreciated. RESPIRATORY: No accessory muscle use. Clear to auscultation. Breath sounds equal bilaterally. GASTROINTESTINAL: Abdomen soft, very mild epigastric TTP, nondistended. Bowel sounds x4. MUSCULOSKELETAL: No obvious deformities. No clubbing or cyanosis. No edema. NEUROLOGICAL: Awake and alert. No focal neurological deficits. Moves upper and lower extremities spontaneously. Normal speech. PSYCHIATRIC: Pleasant mood and affect; insight and judgment normal. A/P Problem List: (1) Elevated troponin ICD Code: R74.8 Status: Acute (2) Constipation ICD Code: K59.00 Status: Chronic (3) Diabetes ICD Code: E11.9 Status: Chronic (4) Abdominal pain ICD Code: R10.9 Status: Acute (5) Hypertension ICD Code: I10 Status: Chronic Assessment and Plan 80-year-old female with history of diabetes and hypertension, presents with abdominal pain (acute on chronic) and found to have elevated troponin and abnormal EKG Abdominal pain with Transaminitis: Acute on chronic. Unclear etiology of elevated LFTs, abdominal pain suspect multifactorial with constipation and gastritis with possible NSAID overuse. -Lipase wnl. LFTs elevated, but trending down. Tylenol level wnl, hepatitis panel negative -Obtain H. pylori stool antigen. -CT abdomen reviewed, biliary duct has chronic dilatation at 14 mm, no signs of any acute process. Liver U/S reviewed, again shows biliary ductal and pancreatic ductal diltation, similar to prior. -Treat constipation, started with MiraLAX and glycerin suppository, constipation relieved. -Started Protonix IV daily. -Continue IV hydration, antiemetics prn -Consulted gastroenterology, planning on EUS and ERCP -Diet per GI Elevated troponin, Abnormal EKG with T-wave inversions: no complains of chest pain however +epigastric pain as above. -Trended cardiac enzymes, Troponins 0.15, 0.11, 0.08. EKG with anterolateral T-wave inversions. -Consulted cardiology -Echocardiogram with EF 50-55%, mild MR, moderate TR -Nuclear stress test nonischemic -Per Dr. Blanc, ok to d/c from cardiac standpoint Hypertension: chronic, reasonably controlled -Continue home meds including lisinopril, HCTZ Diabetes: chronic, stable -hold home glipizide -Monitor accu-cheks and cover with SSI Sinus Tachycardia: suspect secondary to dehydration -EKG with sinus tachycardia -Continue IVF -monitor electrolytes -Restart patient's cardizem, patient's HR dropped to low 50s at 240mg dosing , decreased to 120mg -Cardiology on board -HR improved Hypokalemia: suspect secondary to recent poor oral intake. Magnesium within normal limits. -given KCl replacement -Monitor BMP, replaced K as needed Multiple Recent Falls: unclear etiology -consulted PT, recommends SNF -monitor on telemetry DVT Prophylaxis: teds/SCDs Discharge Planning Follow-up GI recommendations. Consult case management for assistance with discharging to SNF at [place]. Song Munoz Oct 14, 2016 09:08
--- NOTE | 2016-10-14 14:58 | HHI.GIFU ---
Subjective Remarks Pt reports ongoing epigastric mild to moderate pain. She is pleased to be having her ERCP to drain her bile duct in hopes of easing her pain. I advised her she may need to get her ERCP tomorrow but she should stay NPO just in case she can go today. Objective Vitals I&O Vital Signs Date Time Temp Pulse Resp B/P Pulse Ox O2 Delivery O2 Flow Rate FiO2 10/14/16 11:58 98.4 100 16 143/66 98 10/14/16 08:04 93 10/14/16 07:56 98.7 98 16 145/62 99 10/14/16 04:20 98.7 80 18 128/71 98 10/14/16 04:00 82 10/14/16 00:10 97.8 73 16 149/67 99 10/14/16 00:00 63 10/13/16 21:12 97.8 69 18 142/63 100 10/13/16 20:00 80 10/13/16 17:12 84 10/13/16 15:21 98.5 90 18 137/63 99 Laboratory Laboratory Tests Test 10/14/16 05:25 White Blood Count 5.1 Red Blood Count 3.27 Hemoglobin 10.6 Hematocrit 30.7 Mean Corpuscular Volume 93.9 Mean Corpuscular Hemoglobin 32.5 Mean Corpuscular Hemoglobin 34.6 Concent Red Cell Distribution Width 12.0 Platelet Count 211 Mean Platelet Volume 8.6 Neutrophils (%) (Auto) 51.9 Lymphocytes (%) (Auto) 28.6 Monocytes (%) (Auto) 15.3 Eosinophils (%) (Auto) 3.8 Basophils (%) (Auto) 0.4 Neutrophils # (Auto) 2.6 Lymphocytes # (Auto) 1.5 Monocytes # (Auto) 0.8 Eosinophils # (Auto) 0.2 Basophils # (Auto) 0.0 CBC Comment DIFF FINAL Differential Comment Sodium Level 139 Potassium Level 3.5 Chloride Level 107 Carbon Dioxide Level 27.2 Anion Gap 5 Blood Urea Nitrogen 16 Creatinine 0.44 Estimat Glomerular Filtration 138 Rate Random Glucose 119 Calcium Level 8.2 Total Bilirubin 0.6 Aspartate Amino Transf 81 (AST/SGOT) Alanine Aminotransferase 92 (ALT/SGPT) Alkaline Phosphatase 127 Total Protein 6.4 Albumin 2.3 Physical Exam HEENT: Normocephalic; atraumatic; no jaundice. CHEST: CTA CARDIAC: RRR. ABDOMEN: Soft, nondistended, nontender; no hepatosplenomegaly; bowel sounds are present in all four quadrants. EXTREMITIES: No clubbing, cyanosis, or edema. SKIN: Normal; no rash; no jaundice. 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 Assessment and Plan Plan ASSESSMENT: - Acute on chronic abdominal pain. She has had this pain several years, usually has flares once a month. S/P workup with Dr. Cho in 2010, when she was hospitalized for abdominal pain and vomiting with elevated LFTs and chronic biliary ductal dilatation. 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 Her LFTs normalize and her HIDA scan was unremarkable. She has been evaluated by Dr. Worley in 2011 for evaluation of chronic abdominal pain and the plan was for a gastric emptying scan, Dexilant 60 mg by mouth daily, monitor LFTs, and if above workup was negative and she continued to have pain consider endoscopic ultrasound. Colonoscopy (08/23/11) revealed melanosis throughout the colon, medium internal hemorrhoids, moderate external hemorrhoids. It was recommended that she have a repeat colonoscopy in 5 years. Gastric emptying scan (09/09/11)---> negative examination. Currently on Bethanechol and Omeprazole. Currently having intermittent sharp abdominal pain epigastric area, mid and lower abdomen that radiates to left anterior chest and back. Abdomen/Pelvis CT (10/11/16)---> 1. No acute findings. Biliary ductal dilatation similar to 2011, status post cholecystectomy. No acute traumatic injury identified within the abdomen and pelvis. Liver Ultrasound (10/12/16)----> Biliary ductal and pancreatic ductal dilatation, similar to prior. Spoke with Dr. Andres, will await results of Lexiscan, if negative, will go back down and discuss possible ERCP for further evaluation of chronic CBD dilatation, abdominal pain. - Elevated LFTs. CT with biliary dilatation similar to 2011, s/p cholecystectomy. US pending. Previously had (+) VAMSI 1:80. Hepatitis negative, AFP 0.7, Ferritin 362, Iron saturation 19.0%, VAMSI pending , AMA pending, ASMA pending, Alpha 1 antitrypsin pending, Ceruloplasmin pending. - Chronically dilated CBD. S/P ERCP as above. If stress test negative, will discuss further evaluation with ERCP - Elevated troponin. Cardiology following, lexiscan tomorrow. - HTN, Anxiety, DM per attending. PLAN: - NPO for ERCP - Stress test was OK - Await VAMSI, ASMA, AMA - Await Ceruloplasmin, Alpha 1 antitrypsin - Monitor cbc, lft Osito Snell MD Oct 14, 2016 14:58
[2016-10-14 16:13] LABS: ANA SCREEN POS (NEG)
[2016-10-14] MEDS: PANTOPRAZOLE SODIUM 40 MG VIAL IV PUSH SCH (21:01)
[2016-10-14] MEDS: AMITRIPTYLINE HCL 10 MG TAB PO SCH (21:01)
[2016-10-14] MEDS: ATORVASTATIN 40 MG TAB PO SCH (21:02)
[2016-10-14] MEDS ORDERED: ACETAMINOPHEN 325 MG TAB PO ONE (21:45)
[2016-10-15] VITALS (12 sets, daily range): BP systolic 122–189; BP diastolic 60–86; PULSE 73–105; RESP 16–20; TEMP 95–98.6; O2SAT 94–100
[2016-10-15] MEDS: INSULIN ASPART SUPPLEMENTAL SCALE SQ SCH ×4 (05:46→20:31)
[2016-10-15] MEDS: GLYCERIN ADULT 2 GM SUPP RECTAL SCH (08:10)
[2016-10-15] MEDS: NICOTINE 14 MG/24 HR PATCH T-DERMAL SCH (08:10)
[2016-10-15] MEDS: DILTIAZEM-CD 120 MG CAP ER PO SCH (08:14)
[2016-10-15] MEDS: LISINOPRIL 20 MG TAB PO SCH (08:14)
[2016-10-15] MEDS: HYDROCHLOROTHIAZIDE 25 MG TAB PO SCH (08:15)
[2016-10-15] MEDS: DONEPEZIL HCL 5 MG TAB PO SCH (08:15)
[2016-10-15] MEDS: BETHANECHOL CHL 25 MG TAB PO SCH ×4 (08:15→20:10)
[2016-10-15] MEDS: SODIUM CHLORIDE 0.9% FLUSH 10 ML FLUSH IV FLUSH SCH ×2 (08:16→20:10)
[2016-10-15] MEDS: POLYETHYLENE GLYCOL 17 GM PKG PO SCH (08:45)
[2016-10-15] MEDS: REMOVE OLD PATCH T-DERMAL SCH (09:00)
--- NOTE | 2016-10-15 10:51 | HHI.PR ---
Subjective Remarks Follow-up for abdominal pain. The patient states her abdominal pain is worse sedating yesterday. She's been having persistent nausea overnight. She's had 2 episodes of yellow vomitus. She states the abdominal pain is generalized and worse in the upper abdomen. She reports the pain medicine does help. Plan for ERCP later today. Objective Vitals Vital Signs Date Time Temp Pulse Resp B/P Pulse Ox O2 Delivery O2 Flow Rate FiO2 10/15/16 07:35 97.8 98 16 153/68 99 10/15/16 04:00 73 10/15/16 03:41 98.5 85 18 125/70 98 10/15/16 00:01 98.6 99 18 122/68 99 10/15/16 00:00 88 10/14/16 21:06 98.2 77 18 125/61 98 10/14/16 20:00 73 10/14/16 17:04 98.5 77 20 146/64 99 10/14/16 11:58 98.4 100 16 143/66 98 Result Diagram: 10/14/16 0525 10/14/16 0525 Imaging Last Impressions Myocardial Perfusion Scan Nuc Med 10/13/16 0000 Signed Impressions: Service Date/Time: October 10:46 - CONCLUSION: Normal examination. RISK CATEGORY: Low (<1%% Annual Mortality Rate) Juan Carlos Corona MD Liver Ultrasound 10/12/16 0000 Signed Impressions: Service Date/Time: Wednesday, October 12, 2016 09:18 - CONCLUSION: Biliary ductal and pancreatic ductal dilatation, similar to prior. Juan Carlos Corona MD Abdomen/Pelvis CT 10/11/16 1029 Signed Impressions: Service Date/Time: Tuesday, October 11, 2016 12:59 - CONCLUSION: 1. No acute findings. Biliary ductal dilatation similar to 2011, status post cholecystectomy. No acute traumatic injury identified within the abdomen and pelvis. Darwin Arana MD Lung Scan-V Nuclear Medicine 10/11/16 0000 Signed Impressions: Service Date/Time: Tuesday, October 11, 2016 15:23 - CONCLUSION: Normal examination. Negative for pulmonary embolus. Darwin Arana MD Head CT 10/11/16 0000 Signed Impressions: Service Date/Time: Tuesday, October 11, 2016 12:54 - CONCLUSION: 1. No evidence of acute infarct, hemorrhage, mass or edema. 2. Generalized volume loss characteristic of an aging brain. Killian Lo MD Chest X-Ray 10/11/16 0000 Signed Impressions: Service Date/Time: Tuesday, October 11, 2016 10:47 - CONCLUSION: No acute intrathoracic disease. Deandre Horvath MD Objective Remarks GENERAL: Well-developed well-nourished. In no acute distress. SKIN: Warm and dry. No lesions noted. HEENT: Normocephalic. Pupils equal and round. Mucous membranes pink and moist. CARDIOVASCULAR: Regular rate and rhythm. No murmur appreciated. RESPIRATORY: No accessory muscle use. Clear to auscultation. Breath sounds equal bilaterally. GASTROINTESTINAL: Abdomen soft, generalized TTP worsening epigastric area, nondistended. Bowel sounds x4. MUSCULOSKELETAL: No obvious deformities. No clubbing or cyanosis. No edema. NEUROLOGICAL: Awake and alert. No focal neurological deficits. Moves upper and lower extremities spontaneously. Normal speech. PSYCHIATRIC: Pleasant mood and affect; insight and judgment normal. A/P Problem List: (1) Elevated troponin ICD Code: R74.8 Status: Acute (2) Constipation ICD Code: K59.00 Status: Chronic (3) Diabetes ICD Code: E11.9 Status: Chronic (4) Abdominal pain ICD Code: R10.9 Status: Acute (5) Hypertension ICD Code: I10 Status: Chronic Assessment and Plan 80-year-old female with history of diabetes and hypertension, presents with abdominal pain (acute on chronic) and found to have elevated troponin and abnormal EKG Abdominal pain with Transaminitis: Acute on chronic. Unclear etiology of elevated LFTs, abdominal pain suspect multifactorial with constipation and gastritis with possible NSAID overuse. -Lipase wnl. LFTs elevated, but trending down. Tylenol level wnl, hepatitis panel negative. -H. pylori stool antigen pending. -CT abdomen reviewed, biliary duct has chronic dilatation at 14 mm, no signs of any acute process. Liver U/S reviewed, again shows biliary ductal and pancreatic ductal diltation, similar to prior. -Continue Protonix IV daily. -Continue IV hydration, antiemetics prn -Consulted gastroenterology, planning on EUS and ERCP -Diet per GI Elevated troponin, Abnormal EKG with T-wave inversions: no complains of chest pain however +epigastric pain as above. -Trended cardiac enzymes, Troponins 0.15, 0.11, 0.08. EKG with anterolateral T-wave inversions. -Consulted cardiology -Echocardiogram with EF 50-55%, mild MR, moderate TR -Nuclear stress test nonischemic -Per Dr. Blanc ok to d/c from cardiac standpoint Hypertension: chronic, reasonably controlled -Continue home Cardizem and lisinopril. Hold HCTZ with vomiting and on IVF. Diabetes: chronic, stable -hold home glipizide while nothing by mouth. -Monitor accu-cheks and cover with SSI -Continue D5 with IVF -Hypoglycemia protocol Sinus Tachycardia: suspect secondary to dehydration -EKG with sinus tachycardia -Continue IVF -monitor electrolytes -Heart rate controlled on Cardizem 120mg Multiple Recent Falls: unclear etiology -consulted PT, recommends SNF -monitor on telemetry DVT Prophylaxis: teds/SCDs Discharge Planning Still with intractable nausea and vomiting. Follow-up GI recommendations. Hopefully ERCP will help relieve symptoms. Consult case management for assistance with discharging to SNF at [place]. Song Munoz Oct 15, 2016 10:51
[2016-10-15] MEDS ORDERED: ONDANSETRON HCL 4 MG/2 ML VIAL IV PUSH ONE (12:00)
[2016-10-15] MEDS ORDERED: NEOSTIGMINE 3 MG/3 ML SYR IV ONE (12:00)
[2016-10-15] MEDS ORDERED: PROPOFOL 200 MG/20 ML AMP IV ONE (12:00)
[2016-10-15] MEDS ORDERED: PHENYLEPH/NS 1000 MCG/10 ML SYR IV ONE (12:00)
[2016-10-15] MEDS: D5-1/2 NS + KCL 20 MEQ INJ 1,000 ML IV SCH ×2 (13:12→20:11)
[2016-10-15] MEDS ORDERED: INDOMETHACIN 50 MG SUPP RECTAL ONE ×3 (15:15→15:33)
[2016-10-15] MEDS ORDERED: DO NOT ADM ANY ANTICOAGULANT DRUGS PRN (15:40)
--- NOTE | 2016-10-15 15:42 | PD.PROCEDR ---
GI Procedure REFERRING PHYSICIAN Myrtle FUENTES PERFORMED ERCP with sphincterotomy and biliary dilatation brushing and biopsy INDICATION FOR PROCEDURE Abdominal pain with biliary dilatation PROCEDURE: The procedure, risks and benefits were discussed with Ms. Matthew and informed consent was obtained. Anesthesia sedated her with Diprivan. She was placed in the left lateral decubitus position. ERCP: Patient was placed in a prone position. The Pentax videoscope was introduced through the oropharynx and advanced to the second portion of the duodenum where the ampula was identified. FINDINGS: The ampulla was noted to be unremarkable after several attempts I was unable to cannulate the common bile duct a needle-knife sphincterotomy was performed after which I was able to pass a wire into the bile duct but was unable to pass the sphincterotome and so this was dilated with a 6 [place] Soehendra dilator after which I was able to extend the sphincterotomy there appeared to be some possible filling defect in the distal bile duct which was significantly dilated using a 12 mm balloon I was able to sweep the bile duct no stones or sludge were seen coming out and the balloon passed through the ampulla with relative ease but I went ahead and brushed the distal CBD and took a biopsy from the ampulla and the distal CBD for further evaluation most likely the stricture is a benign stricture ESTIMATED BLOOD LOSS: None SPECIMENS REMOVED: Ampullary sample and distal CBD brushing COMPLICATIONS: None 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
--- NOTE | 2016-10-15 15:46 | RADRPT ---
EXAM DATE/TIME: 10/15/2016 15:19 [facility] COMPARISON: MRCP W/O CONTRAST, July 14, 2010, 8:41. GI LAB ERCP, July 16, 2010, 9:17. INDICATIONS : Obstruction. Sphincterotomy. FLUORO TIME: 4:09 minutes IMAGE COUNT: 2 CONTRAST: Instilled by Ordering Physician MEDICAL HISTORY : Hypertension. Diabetes mellitus type 2 SURGICAL HISTORY : Appendectomy. Cholecystectomy.Tubal ligation ENCOUNTER: Initial ACUITY: 1 day PAIN SCORE: Non-responsive. LOCATION: abdomen. FINDINGS: An ERCP was performed by the ordering physician. The images demonstrate significant dilatation of the common bile duct with no significant flow of con trast into the duodenum prior to intervention. CONCLUSION: ERCP as above. Killian Lo MD on October 15, 2016 at 15:43 Board Certified Radiologist. This report was verified electronically.
[2016-10-15] MEDS ORDERED: LACTATED RINGER'S 1000 ML INJ 1,000 ML ONE (15:52)
[2016-10-15] MEDS ORDERED: ENALAPRILAT 1.25 MG/ML VIAL IV PUSH PRN (17:45)
[2016-10-15] MEDS: ATORVASTATIN 40 MG TAB PO SCH (20:10)
[2016-10-15] MEDS: AMITRIPTYLINE HCL 10 MG TAB PO SCH (20:10)
[2016-10-15] MEDS: PANTOPRAZOLE SODIUM 40 MG VIAL IV PUSH SCH (20:10)
[2016-10-16] VITALS (7 sets, daily range): BP systolic 130–172; BP diastolic 61–73; PULSE 74–103; RESP 16–20; TEMP 96.1–98; O2SAT 96–100
[2016-10-16 03:50] LABS: MITOCHONDRIAL ABS LESS THAN 20.0 U (())
[2016-10-16 05:39] LABS: HEMATOCRIT 33.3 % (35.0-46.0); MEAN CELL VOLUME 92.9 FL (80.0-100.0); MEAN CORPUSCULAR HGB CONC 34.4 % (32.0-36.0); PLATELET COUNT 251 TH/MM3 (150-450); RED BLOOD COUNT 3.59 MIL/MM3 (4.00-5.30); REVIEW FLAG FINAL; WHITE BLOOD COUNT 5.9 TH/MM3 (4.0-11.0)
[2016-10-16] MEDS: INSULIN ASPART SUPPLEMENTAL SCALE SQ SCH ×4 (06:07→21:00)
[2016-10-16 06:25] LABS: ALKALINE PHOSPHATASE 170 U/L (45-117); ALT (GPT) 109 U/L (10-53); ANION GAP 10 MEQ/L (5-15); AST (GOT) 83 U/L (15-37); BICARBONATE 26.3 MEQ/L (21.0-32.0); BLOOD UREA NITROGEN 23 MG/DL (7-18); CHLORIDE 103 MEQ/L (98-107); GLOMERULAR FILTRATION RATE 96 ML/MIN (>89); MAGNESIUM 1.3 MG/DL (1.5-2.5); SODIUM (NA) 139 MEQ/L (136-145); TOTAL BILIRUBIN ADULT 0.4 MG/DL (0.2-1.0)
[2016-10-16 06:32] LABS: POTASSIUM 2.9 MEQ/L (3.5-5.1)
[2016-10-16] MEDS ORDERED: POTASSIUM CHLORIDE 20 MEQ CONTROLLED RELEASE TAB PO ONE (06:45)
[2016-10-16] MEDS ORDERED: POTASSIUM CHLOR 20 MEQ PREMIX 100 ML IV SCH (06:45)
[2016-10-16] MEDS: POLYETHYLENE GLYCOL 17 GM PKG PO SCH ×2 (08:40→09:00)
[2016-10-16] MEDS: NICOTINE 14 MG/24 HR PATCH T-DERMAL SCH (08:41)
[2016-10-16] MEDS: BETHANECHOL CHL 25 MG TAB PO SCH ×4 (08:41→22:41)
[2016-10-16] MEDS: LISINOPRIL 20 MG TAB PO SCH (08:41)
[2016-10-16] MEDS: DONEPEZIL HCL 5 MG TAB PO SCH (08:41)
[2016-10-16] MEDS: DILTIAZEM-CD 120 MG CAP ER PO SCH (08:41)
[2016-10-16] MEDS: REMOVE OLD PATCH T-DERMAL SCH (09:00)
[2016-10-16] MEDS: SODIUM CHLORIDE 0.9% FLUSH 10 ML FLUSH IV FLUSH SCH ×2 (09:00→21:00)
[2016-10-16] MEDS: GLYCERIN ADULT 2 GM SUPP RECTAL SCH (09:00)
[2016-10-16] MEDS ORDERED: MAGNESIUM SULFATE 1 GM PREMIX 100 ML IV SCH (09:00)
[2016-10-16] MEDS: D5-1/2 NS + KCL 20 MEQ INJ 1,000 ML IV SCH (12:02)
--- NOTE | 2016-10-16 15:58 | HHI.GIFU ---
Subjective Remarks Lying in bed in no apparent distress. Reports she continues to have diffuse abdominal tenderness, worse at epigastric region and bilateral upper abdomen. Tolerating liquid diet. Denies nausea or vomiting. (Jania Jason) Objective Vitals I&O Vital Signs Date Time Temp Pulse Resp B/P Pulse Ox O2 Delivery O2 Flow Rate FiO2 10/16/16 12:02 84 10/16/16 12:00 97.4 80 18 141/63 100 10/16/16 08:20 98 21 10/16/16 08:00 98.0 96 20 136/62 100 10/16/16 04:00 96.2 81 20 172/73 99 10/15/16 23:58 97.5 86 20 136/60 94 10/15/16 20:00 96.0 78 19 166/81 95 10/15/16 20:00 78 10/15/16 18:00 95.0 105 18 189/86 97 10/15/16 17:00 97.4 100 16 170/73 96 Room Air 10/15/16 16:45 100 16 175/81 95 Room Air 10/15/16 16:30 97 16 175/78 96 Room Air 10/15/16 16:15 99 16 172/82 98 Room Air 10/15/16 16:00 98 16 178/81 98 Room Air 10/15/16 15:45 98 16 165/77 98 Simple Mask 6 I/O 10/15/16 10/15/16 10/15/16 10/16/16 10/16/16 10/16/16 07:00 15:00 23:00 07:00 15:00 23:00 Intake Total 1095 ml 240 ml 690 ml Balance 1095 ml 240 ml 690 ml Intake Oral 120 ml 240 ml IV Total 25 ml 690 ml Other 950 ml # Voids 1 1 # Bowel Movements 0 0 Laboratory Laboratory Tests Test 10/16/16 04:00 White Blood Count 5.9 Red Blood Count 3.59 Hemoglobin 11.5 Hematocrit 33.3 Mean Corpuscular Volume 92.9 Mean Corpuscular Hemoglobin 32.0 Mean Corpuscular Hemoglobin 34.4 Concent Red Cell Distribution Width 12.0 Platelet Count 251 Mean Platelet Volume 8.6 Sodium Level 139 Potassium Level 2.9 Chloride Level 103 Carbon Dioxide Level 26.3 Anion Gap 10 Blood Urea Nitrogen 23 Creatinine 0.60 Estimat Glomerular Filtration 96 Rate Random Glucose 237 Calcium Level 8.6 Magnesium Level 1.3 Total Bilirubin 0.4 Aspartate Amino Transf 83 (AST/SGOT) Alanine Aminotransferase 109 (ALT/SGPT) Alkaline Phosphatase 170 Total Protein 7.1 Albumin 2.5 Imaging Last Impressions GI Procedure 10/15/16 0000 Signed Impressions: Service Date/Time: Saturday, October 15, 2016 15:19 - CONCLUSION: ERCP as above. Killian Lo MD Myocardial Perfusion Scan Nuc Med 10/13/16 0000 Signed Impressions: Service Date/Time: October 10:46 - CONCLUSION: Normal examination. RISK CATEGORY: Low (<1%% Annual Mortality Rate) Juan Carlos Corona MD Liver Ultrasound 10/12/16 0000 Signed Impressions: Service Date/Time: Wednesday, October 12, 2016 09:18 - CONCLUSION: Biliary ductal and pancreatic ductal dilatation, similar to prior. Juan Carlos Corona MD Abdomen/Pelvis CT 10/11/16 1029 Signed Impressions: Service Date/Time: Tuesday, October 11, 2016 12:59 - CONCLUSION: 1. No acute findings. Biliary ductal dilatation similar to 2011, status post cholecystectomy. No acute traumatic injury identified within the abdomen and pelvis. Darwin Arana MD Lung Scan- Nuclear Medicine 10/11/16 0000 Signed Impressions: Service Date/Time: Tuesday, October 11, 2016 15:23 - CONCLUSION: Normal examination. Negative for pulmonary embolus. Darwin Arana MD Head CT 10/11/16 Signed Impressions: Service Date/Time: Tuesday, October 11, 2016 12:54 - CONCLUSION: 1. No evidence of acute infarct, hemorrhage, mass or edema. 2. Generalized volume loss characteristic of an aging brain. Killian Lo MD Chest X-Ray 10/11/16 0000 Signed Impressions: Service Date/Time: Tuesday, October 11, 2016 10:47 - CONCLUSION: No acute intrathoracic disease. Deandre Horvath MD Physical Exam HEENT: PERRLA. Normocephalic; atraumatic; no jaundice. CHEST: CTA CARDIAC: RRR. ABDOMEN: Soft, nondistended, nontender; no hepatosplenomegaly; bowel sounds x 4. EXTREMITIES: No clubbing, cyanosis, or edema. SKIN: Normal; no rash; no jaundice. 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 She has had this pain several years, usually has flares once a month. S/P workup with Dr. Cho in 2010, when she was hospitalized for abdominal pain and vomiting with elevated LFTs and chronic biliary ductal dilatation. 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 Her LFTs normalize and her HIDA scan was unremarkable. She has been evaluated by Dr. Worley in 2011 for evaluation of chronic abdominal pain and the plan was for a gastric emptying scan, Dexilant 60 mg by mouth daily, monitor LFTs, and if above workup was negative and she continued to have pain consider endoscopic ultrasound. Colonoscopy (08/23/11) revealed melanosis throughout the colon, medium internal hemorrhoids, moderate external hemorrhoids. It was recommended that she have a repeat colonoscopy in 5 years. Gastric emptying scan (09/09/11)---> negative examination. Currently on Bethanechol and Omeprazole. Currently having intermittent sharp abdominal pain epigastric area, mid and lower abdomen that radiates to left anterior chest and back. Abdomen/Pelvis CT (10/11/16)---> 1. No acute findings. Biliary ductal dilatation similar to 2011, status post cholecystectomy. No acute traumatic injury identified within the abdomen and pelvis. Liver Ultrasound (10/12/16)----> Biliary ductal and pancreatic ductal dilatation, similar to prior. ERCP completed, as below noted. - Elevated LFTs. CT with biliary dilatation similar to 2011, s/p cholecystectomy. Liver US as above. Previously had (+) VAMSI 1:80. Hepatitis negative, AFP 0.7, Ferritin 362, Iron saturation 19.0%, VAMSI positive, VAMSI titer, pattern, and interpretation pending. AMA negative, ASMA negative, Alpha 1 antitrypsin 176, Ceruloplasmin 43. - Chronically dilated CBD. S/P ERCP as above. ERCP with sphincterotomy and biliary dilatation brushing and biopsy 10/15--Significant dilatation of the common bile duct with no significant flow of contrast into the duodenum prior to intervention. 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 - Elevated troponin. Cardiology following. - HTN, Anxiety, DM per attending. PLAN: - VAMSI screen positive. Await VAMSI titer, pattern, and interpretation - Clear liquid diet - Monitor labs - Monitor abdominal pain - Supportive care - Further recommendations to follow based on results of above Patient seen and examined by Dr. Andres and myself and this note is written on his behalf. (Jania Jason) Physician Comments Patient Seen and examined Agree with above Continue with current supportive care Monitor labs (Maxx Andres MD) Jania Jason Oct 16, 2016 15:58 Maxx Andres MD Oct 16, 2016 22:17
[2016-10-16] MEDS: PANTOPRAZOLE SODIUM 40 MG VIAL IV PUSH SCH (21:00)
[2016-10-16] MEDS: MAGNESIUM SULFATE 1 GM PREMIX 100 ML IV SCH (21:00)
[2016-10-16] MEDS ORDERED: POTASSIUM CHLOR 20 MEQ PREMIX 100 ML IV ONE (22:00)
[2016-10-16] MEDS: ATORVASTATIN 40 MG TAB PO SCH (22:41)
[2016-10-16] MEDS: AMITRIPTYLINE HCL 10 MG TAB PO SCH (22:41)
--- NOTE | 2016-10-16 22:51 | HHI.PR ---
Subjective Remarks Patient lying in bed. Denies any chest pain. Reports continued abdominal pain. Says that nausea has improved somewhat. Objective Vital Signs Date Time Temp Pulse Resp B/P Pulse Ox O2 Delivery O2 Flow Rate FiO2 10/16/16 20:00 96.1 94 19 143/66 96 10/16/16 16:00 96.9 74 16 130/61 100 10/16/16 12:02 84 10/16/16 12:00 97.4 80 18 141/63 100 10/16/16 08:20 98 21 10/16/16 08:00 98.0 96 20 136/62 100 10/16/16 04:00 96.2 81 20 172/73 99 10/15/16 23:58 97.5 86 20 136/60 94 I/O 10/15/16 10/15/16 10/15/16 10/16/16 10/16/16 10/16/16 07:00 15:00 23:00 07:00 15:00 23:00 Intake Total 1095 ml 240 ml 1290 ml 240 ml Output Total 750 ml Balance 1095 ml 240 ml 540 ml 240 ml Intake Oral 120 ml 240 ml 600 ml 240 ml IV Total 25 ml 690 ml Other 950 ml Output Urine Total 750 ml # Voids 1 1 2 # Bowel Movements 0 0 2 0 Result Diagram: 10/16/16 0400 10/16/16 0400 Imaging Last Impressions GI Procedure 10/15/16 0000 Signed Impressions: Service Date/Time: Saturday, October 15, 2016 15:19 - CONCLUSION: ERCP as above. Killian Lo MD Myocardial Perfusion Scan Nuc Med 10/13/16 0000 Signed Impressions: Service Date/Time: October 10:46 - CONCLUSION: Normal examination. RISK CATEGORY: Low (<1%% Annual Mortality Rate) Juan Carlos Corona MD Liver Ultrasound 10/12/16 0000 Signed Impressions: Service Date/Time: Wednesday, October 12, 2016 09:18 - CONCLUSION: Biliary ductal and pancreatic ductal dilatation, similar to prior. Juan Carlos Corona MD Abdomen/Pelvis CT 10/11/16 1029 Signed Impressions: Service Date/Time: Tuesday, October 11, 2016 12:59 - CONCLUSION: 1. No acute findings. Biliary ductal dilatation similar to 2010, status post cholecystectomy. No acute traumatic injury identified within the abdomen and pelvis. Darwin Arana MD Lung Scan-VQ Nuclear Medicine 10/11/16 0000 Signed Impressions: Service Date/Time: Tuesday, October 11, 2016 15:23 - CONCLUSION: Normal examination. Negative for pulmonary embolus. Darwin Arana MD Head CT 10/11/16 0000 Signed Impressions: Service Date/Time: Tuesday, October 11, 2016 12:54 - CONCLUSION: 1. No evidence of acute infarct, hemorrhage, mass or edema. 2. Generalized volume loss characteristic of an aging brain. Killian Lo MD Chest X-Ray 10/11/16 0000 Signed Impressions: Service Date/Time: Tuesday, October 11, 2016 10:47 - CONCLUSION: No acute intrathoracic disease. Deandre Horvath MD Procedures ERCP 10/15. Objective Remarks GENERAL: patient sitting up in bed. Appears comfortable. SKIN: Warm and dry. HEAD: Normocephalic. EYES: No scleral icterus. No injection or drainage. NECK: Supple, trachea midline. No JVD or lymphadenopathy. CARDIOVASCULAR: Regular rate and rhythm without murmurs, gallops, or rubs. RESPIRATORY: Breath sounds equal bilaterally. No accessory muscle use. GASTROINTESTINAL: Abdomen soft, non-tender, nondistended. diffusely tender to moderate palpation. No rebound or guarding. MUSCULOSKELETAL: No cyanosis, or edema. BACK: Nontender without obvious deformity. No CVA tenderness. A/P Assessment and Plan 10/16/16 Hypokalemia. Potassium 2.9. Replaced.Follow tomorrow Hypomagnesemia. 1.3. Replaced. Follow tomorrow Status post ERCP 10/15, bile duct stricture. 80-year-old female with history of diabetes and hypertension, presents with abdominal pain (acute on chronic) and found to have elevated troponin and abnormal EKG //Abdominal pain with Transaminitis: Acute on chronic. Unclear etiology of elevated LFTs, abdominal pain suspect multifactorial with constipation and gastritis with possible NSAID overuse. -Lipase wnl. LFTs elevated, but trending down. Tylenol level wnl, hepatitis panel negative. -H. pylori stool antigen pending. -CT abdomen reviewed, biliary duct has chronic dilatation at 14 mm, no signs of any acute process. Liver U/S reviewed, again shows biliary ductal and pancreatic ductal diltation, similar to prior. -Continue Protonix IV daily. -Continue IV hydration, antiemetics prn -Consulted gastroenterology, status post ERCP with biopsies. Follow depending. -VAMSI screen positive. Confirmation pending. -Diet per GI //Elevated troponin, Abnormal EKG with T-wave inversions: no complains of chest pain however +epigastric pain as above. -Trended cardiac enzymes, Troponins 0.15, 0.11, 0.08. EKG with anterolateral T-wave inversions. -Consulted cardiology -Echocardiogram with EF 50-55%, mild MR, moderate TR -Nuclear stress test nonischemic -Per Dr. Blanc, ok to d/c from cardiac standpoint //Hypertension: chronic, reasonably controlled -Continue home Cardizem and lisinopril. Hold HCTZ with vomiting and on IVF. //Diabetes: chronic, stable -hold home glipizide while nothing by mouth. -Monitor accu-cheks and cover with SSI -Continue D5 with IVF -Hypoglycemia protocol //Sinus Tachycardia: suspect secondary to dehydration -EKG with sinus tachycardia -Continue IVF -monitor electrolytes -Heart rate controlled on Cardizem 120mg //Multiple Recent Falls: unclear etiology -consulted PT, recommends SNF -monitor on telemetry //DVT Prophylaxis: teds/SCDs Discharge Planning still with nausea and vomiting. -physical therapy recommends rehabilitation versus home with home health When cleared by GI. Gonzales Bird MD Oct 16, 2016 22:51
[2016-10-17] VITALS (7 sets, daily range): BP systolic 120–160; BP diastolic 57–75; PULSE 59–80; RESP 16–20; TEMP 96–97.3; O2SAT 93–100
[2016-10-17] MEDS: D5-1/2 NS + KCL 20 MEQ INJ 1,000 ML IV SCH ×2 (00:32→15:17)
[2016-10-17 05:40] LABS: AUTOMATED NEUTROPHIL # 7.9 TH/MM3 (1.8-7.7); BASOPHIL % 0.3 % (0.0-2.0); EOSINOPHIL % 0.3 % (0.0-4.0); HEMATOCRIT 28.5 % (35.0-46.0); HEMO FLAGS DIFF FINAL; LYMPH % 18.4 % (9.0-44.0); MEAN CELL VOLUME 92.9 FL (80.0-100.0); MEAN CORPUSCULAR HEMOGLOBIN 32.2 PG (27.0-34.0); MEAN CORPUSCULAR HGB CONC 34.6 % (32.0-36.0); MONO % 7.6 % (0.0-8.0); NEUT % 73.4 % (16.0-70.0); PLATELET COUNT 233 TH/MM3 (150-450); RED BLOOD COUNT 3.07 MIL/MM3 (4.00-5.30); RED CELL DISTRIBUTION WIDTH 12.1 % (11.6-17.2); WHITE BLOOD COUNT 10.8 TH/MM3 (4.0-11.0)
[2016-10-17 05:46] LABS: BICARBONATE 26.7 MEQ/L (21.0-32.0); MAGNESIUM 2.2 MG/DL (1.5-2.5); POTASSIUM 4.1 MEQ/L (3.5-5.1)
[2016-10-17] MEDS: INSULIN ASPART SUPPLEMENTAL SCALE SQ SCH ×3 (06:56→21:00)
--- NOTE | 2016-10-17 08:29 | HHI.PR ---
Subjective Remarks Follow up for abdominal pain s/p ERCP with sphincterotomy and biliary dilation brushing. Patient reports abdominal pain. No fever, chills. Tolerating diet well. Objective Vitals Vital Signs Date Time Temp Pulse Resp B/P Pulse Ox O2 Delivery O2 Flow Rate FiO2 10/17/16 08:00 96.7 67 16 136/60 100 10/17/16 04:00 96.8 75 20 120/69 100 10/17/16 00:12 96.0 76 19 160/67 93 10/16/16 20:00 103 10/16/16 20:00 96.1 94 19 143/66 96 10/16/16 16:00 96.9 74 16 130/61 100 10/16/16 12:02 84 10/16/16 12:00 97.4 80 18 141/63 100 I/O 10/16/16 10/16/16 10/16/16 10/17/16 10/17/16 10/17/16 07:00 15:00 23:00 07:00 15:00 23:00 Intake Total 240 ml 1290 ml 240 ml 566 ml Output Total 750 ml Balance 240 ml 540 ml 240 ml 566 ml Intake Oral 240 ml 600 ml 240 ml 240 ml IV Total 690 ml 326 ml Output Urine Total 750 ml # Voids 1 2 3 # Bowel Movements 0 2 0 0 Result Diagram: 10/17/16 0449 10/17/16 0449 Imaging Last Impressions GI Procedure 10/15/16 0000 Signed Impressions: Service Date/Time: Saturday, October 15, 2016 15:19 - CONCLUSION: ERCP as above. Killian Lo MD Myocardial Perfusion Scan Nuc Med 10/13/16 0000 Signed Impressions: Service Date/Time: October 10:46 - CONCLUSION: Normal examination. RISK CATEGORY: Low (<1%% Annual Mortality Rate) Juan Carlos Corona MD Liver Ultrasound 10/12/16 0000 Signed Impressions: Service Date/Time: Wednesday, October 12, 2016 09:18 - CONCLUSION: Biliary ductal and pancreatic ductal dilatation, similar to prior. Juan Carlos Corona MD Abdomen/Pelvis CT 10/11/16 1029 Signed Impressions: Service Date/Time: Tuesday, October 11, 2016 12:59 - CONCLUSION: 1. No acute findings. Biliary ductal dilatation similar to 2011, status post cholecystectomy. No acute traumatic injury identified within the abdomen and pelvis. Darwin Arana MD Lung Scan-VQ Nuclear Medicine 10/11/16 0000 Signed Impressions: Service Date/Time: Tuesday, October 11, 2016 15:23 - CONCLUSION: Normal examination. Negative for pulmonary embolus. Darwin Arana MD Head CT 10/11/16 0000 Signed Impressions: Service Date/Time: Tuesday, October 11, 2016 12:54 - CONCLUSION: 1. No evidence of acute infarct, hemorrhage, mass or edema. 2. Generalized volume loss characteristic of an aging brain. Killian Lo MD Chest X-Ray 10/11/16 Signed Impressions: Service Date/Time: Tuesday, October 11, 2016 10:47 - CONCLUSION: No acute intrathoracic disease. Deandre Horvath MD Objective Remarks GENERAL: Alert, NAD. SKIN: Warm and dry. HEAD: Normocephalic. EYES: No scleral icterus. No injection or drainage. NECK: Supple, trachea midline. No JVD or lymphadenopathy. CARDIOVASCULAR: Regular rate and rhythm without murmurs, gallops, or rubs. RESPIRATORY: Breath sounds equal bilaterally. No accessory muscle use. GASTROINTESTINAL: Abdomen soft, diffuse tenderness on palpation, nondistended. MUSCULOSKELETAL: No cyanosis, or edema. BACK: Nontender without obvious deformity. No CVA tenderness. Procedures Echo 10/12/2016 CONCLUSIONS The left ventricular systolic function is low normal with an estimated ejection fraction in the range of 50- 55%. Wall thickness is measured at the upper limits of normal. Normal left ventricular size. Mild mitral valve regurgitation. There is moderate tricuspid regurgitation. The estimated pulmonary arterial pressure is 44 mmHg. ERCP 10/15/2016 PROCEDURE PERFORMED ERCP with sphincterotomy and biliary dilatation brushing and biopsy Urinary Catheter: No A/P Problem List: (1) Elevated troponin ICD Code: R74.8 Status: Acute (2) Constipation ICD Code: K59.00 Status: Chronic (3) Diabetes ICD Code: E11.9 Status: Chronic (4) Abdominal pain ICD Code: R10.9 Status: Acute (5) Hypertension ICD Code: I10 Status: Chronic Assessment and Plan 80-year-old female with history of diabetes and hypertension, presents with abdominal pain (acute on chronic) and found to have elevated troponin and abnormal EKG - Abdominal pain with Transaminitis - Unclear etiology of elevated LFTs, abdominal pain suspect multifactorial with constipation and gastritis with possible NSAID overuse. -Lipase wnl. LFTs elevated, but trending down. Tylenol level < 2.0, hepatitis panel negative. -H. pylori stool antigen is positive. This should likely be treated. Will discuss with GI. - Clarithromycin, Amoxicillin and PPI would be a reasonable choice. -CT abdomen reviewed, biliary duct has chronic dilatation at 14 mm, no signs of any acute process. Liver U/S reviewed, again shows biliary ductal and pancreatic ductal dilatation, similar to prior. -Continue Protonix IV daily. -Continue IV hydration, antiemetics prn -Consulted gastroenterology, status post ERCP with biopsies. -VAMSI screen positive, Titer 1:80 - this is usually not significant. - Elevated troponin, Abnormal EKG with T-wave inversions: no complains of chest pain however +epigastric pain as above. - Trended cardiac enzymes, Troponins 0.15, 0.11, 0.08. EKG with anterolateral T-wave inversions. - Consulted cardiology - Echocardiogram with EF 50-55%, mild MR, moderate TR - Nuclear stress test nonischemic - Per Dr. Blanc, ok to d/c from cardiac standpoint - Hypertension: chronic, reasonably controlled - Continue home Cardizem and lisinopril. Hold HCTZ with vomiting and on IVF. - Diabetes: chronic, stable - hold home glipizide while nothing by mouth. - Monitor accu-cheks and cover with SSI - Continue D5 with IVF - Hypoglycemia protocol - Sinus Tachycardia: suspect secondary to dehydration - EKG with sinus tachycardia - Continue IVF - monitor electrolytes - Heart rate controlled on Cardizem 120mg - Multiple Recent Falls: unclear etiology - consulted PT, recommends SNF - monitor on telemetry Full code. SCDs. Ava Nielson DO Oct 17, 2016 08:29
[2016-10-17] MEDS: BETHANECHOL CHL 25 MG TAB PO SCH ×4 (08:46→22:11)
[2016-10-17] MEDS: GLYCERIN ADULT 2 GM SUPP RECTAL SCH (08:46)
[2016-10-17] MEDS: DONEPEZIL HCL 5 MG TAB PO SCH (08:46)
[2016-10-17] MEDS: DILTIAZEM-CD 120 MG CAP ER PO SCH (08:46)
[2016-10-17] MEDS: LISINOPRIL 20 MG TAB PO SCH (08:46)
[2016-10-17] MEDS: NICOTINE 14 MG/24 HR PATCH T-DERMAL SCH (08:46)
[2016-10-17] MEDS: POLYETHYLENE GLYCOL 17 GM PKG PO SCH (08:46)
[2016-10-17] MEDS: SODIUM CHLORIDE 0.9% FLUSH 10 ML FLUSH IV FLUSH SCH ×2 (09:00→22:08)
[2016-10-17] MEDS: REMOVE OLD PATCH T-DERMAL SCH (09:00)
[2016-10-17] MEDS ORDERED: MORPHINE SULFATE 4 MG/ML INJ IV PUSH PRN (14:30)
[2016-10-17 14:45] LABS: INDIRECT BILIRUBIN 0.1 MG/DL (0.0-0.8); TOTAL BILIRUBIN ADULT 0.3 MG/DL (0.2-1.0)
[2016-10-17] MEDS: PANTOPRAZOLE SODIUM 40 MG VIAL IV PUSH SCH (22:07)
[2016-10-17] MEDS: AMITRIPTYLINE HCL 10 MG TAB PO SCH (22:08)
[2016-10-17] MEDS: ATORVASTATIN 40 MG TAB PO SCH (22:08)
--- NOTE | 2016-10-17 23:47 | HHI.GIFU ---
Subjective Remarks Patient appears to be comfortable in bed but reports upper abdominal pain across the upper abdomen no nausea or vomiting tolerating intake Objective Vitals I&O Vital Signs Date Time Temp Pulse Resp B/P Pulse Ox O2 Delivery O2 Flow Rate FiO2 10/17/16 20:00 97.1 80 18 125/57 93 10/17/16 18:11 94 21 10/17/16 16:00 97.3 59 16 150/65 94 10/17/16 12:00 96.1 76 17 134/75 100 10/17/16 08:00 96.7 67 16 136/60 100 10/17/16 04:00 96.8 75 20 120/69 100 10/17/16 00:12 96.0 76 19 160/67 93 I/O 10/16/16 10/16/16 10/16/16 10/17/16 10/17/16 10/17/16 06:59 14:59 22:59 06:59 14:59 22:59 Intake Total 240 ml 1290 ml 240 ml 566 ml 240 ml Output Total 750 ml Balance 240 ml 540 ml 240 ml 566 ml 240 ml Intake Oral 240 ml 600 ml 240 ml 240 ml 240 ml IV Total 690 ml 326 ml Output Urine Total 750 ml # Voids 1 2 3 3 # Bowel Movements 0 2 0 0 1 Laboratory Laboratory Tests Test 10/17/16 04:49 White Blood Count 10.8 Red Blood Count 3.07 Hemoglobin 9.9 Hematocrit 28.5 Mean Corpuscular Volume 92.9 Mean Corpuscular Hemoglobin 32.2 Mean Corpuscular Hemoglobin 34.6 Concent Red Cell Distribution Width 12.1 Platelet Count 233 Mean Platelet Volume 8.7 Neutrophils (%) (Auto) 73.4 Lymphocytes (%) (Auto) 18.4 Monocytes (%) (Auto) 7.6 Eosinophils (%) (Auto) 0.3 Basophils (%) (Auto) 0.3 Neutrophils # (Auto) 7.9 Lymphocytes # (Auto) 2.0 Monocytes # (Auto) 0.8 Eosinophils # (Auto) 0.0 Basophils # (Auto) 0.0 CBC Comment DIFF FINAL Differential Comment Sodium Level 142 Potassium Level 4.1 Chloride Level 110 Carbon Dioxide Level 26.7 Anion Gap 5 Blood Urea Nitrogen 19 Creatinine 0.43 Estimat Glomerular Filtration 141 Rate Random Glucose 136 Calcium Level 8.0 Phosphorus Level 2.3 Magnesium Level 2.2 Total Bilirubin 0.3 Direct Bilirubin 0.2 Indirect Bilirubin 0.1 Aspartate Amino Transf 63 (AST/SGOT) Alanine Aminotransferase 86 (ALT/SGPT) Alkaline Phosphatase 134 Total Protein 6.5 Albumin 2.4 Physical Exam HEENT: PERRLA. Normocephalic; atraumatic; no jaundice. CHEST: CTA CARDIAC: RRR. ABDOMEN: Soft, nondistended, nontender; no hepatosplenomegaly; bowel sounds x 4. EXTREMITIES: No clubbing, cyanosis, or edema. SKIN: Normal; no rash; no jaundice. 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 She has had this pain several years, usually has flares once a month. S/P workup with Dr. Cho in 2010, when she was hospitalized for abdominal pain and vomiting with elevated LFTs and chronic biliary ductal dilatation. 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 Her LFTs normalize and her HIDA scan was unremarkable. She has been evaluated by Dr. Worley in 2011 for evaluation of chronic abdominal pain and the plan was for a gastric emptying scan, Dexilant 60 mg by mouth daily, monitor LFTs, and if above workup was negative and she continued to have pain consider endoscopic ultrasound. Colonoscopy (08/23/11) revealed melanosis throughout the colon, medium internal hemorrhoids, moderate external hemorrhoids. It was recommended that she have a repeat colonoscopy in 5 years. Gastric emptying scan (09/09/11)---> negative examination. Currently on Bethanechol and Omeprazole. Currently having intermittent sharp abdominal pain epigastric area, mid and lower abdomen that radiates to left anterior chest and back. Abdomen/Pelvis CT (10/11/16)---> 1. No acute findings. Biliary ductal dilatation similar to 2011, status post cholecystectomy. No acute traumatic injury identified within the abdomen and pelvis. Liver Ultrasound (10/12/16)----> Biliary ductal and pancreatic ductal dilatation, similar to prior. ERCP completed, as below noted. - Elevated LFTs. CT with biliary dilatation similar to 2011, s/p cholecystectomy. Liver US as above. Previously had (+) VAMSI 1:80. Hepatitis negative, AFP 0.7, Ferritin 362, Iron saturation 19.0%, VAMSI positive, VAMSI titer, pattern, and interpretation pending. AMA negative, ASMA negative, Alpha 1 antitrypsin 176, Ceruloplasmin 43. - Chronically dilated CBD. S/P ERCP as above. ERCP with sphincterotomy and biliary dilatation brushing and biopsy 10/15--Significant dilatation of the common bile duct with no significant flow of contrast into the duodenum prior to intervention. 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 - Elevated troponin. Cardiology following. - HTN, Anxiety, DM per attending. 10/17/16 possibly musculoskeletal pain PLAN: - VAMSI screen positive, diffuse pattern. Await VAMSI titer, and interpretation - Clear liquid diet - Monitor labs - Monitor abdominal pain - Supportive care - Further recommendations to follow based on results of above Maxx Andres MD Oct 17, 2016 23:47
[2016-10-18] VITALS (8 sets, daily range): BP systolic 131–159; BP diastolic 59–71; PULSE 62–81; RESP 12–18; TEMP 95.3–98.4; O2SAT 92–100
[2016-10-18] MEDS: D5-1/2 NS + KCL 20 MEQ INJ 1,000 ML IV SCH ×2 (01:32→14:02)
[2016-10-18 05:17] LABS: HEMATOCRIT 28.7 % (35.0-46.0); MEAN CELL VOLUME 93.6 FL (80.0-100.0); MEAN CORPUSCULAR HEMOGLOBIN 32.5 PG (27.0-34.0); MEAN CORPUSCULAR HGB CONC 34.7 % (32.0-36.0); PLATELET COUNT 210 TH/MM3 (150-450); RED BLOOD COUNT 3.07 MIL/MM3 (4.00-5.30); REVIEW FLAG FINAL
[2016-10-18 05:35] LABS: ANION GAP 6 MEQ/L (5-15); AST (GOT) 43 U/L (15-37); BICARBONATE 25.7 MEQ/L (21.0-32.0); BLOOD UREA NITROGEN 15 MG/DL (7-18); CHLORIDE 108 MEQ/L (98-107); GLOMERULAR FILTRATION RATE 168 ML/MIN (>89); POTASSIUM 3.8 MEQ/L (3.5-5.1); SODIUM (NA) 140 MEQ/L (136-145)
[2016-10-18 05:41] LABS: ALKALINE PHOSPHATASE 125 U/L (45-117); ALT (GPT) 67 U/L (10-53); TOTAL BILIRUBIN ADULT 0.5 MG/DL (0.2-1.0)
[2016-10-18] MEDS: INSULIN ASPART SUPPLEMENTAL SCALE SQ SCH ×4 (07:00→20:16)
[2016-10-18] MEDS ORDERED: AMOX500C PO (08:55)
[2016-10-18] MEDS ORDERED: CARA1SUS3 PO (08:55)
[2016-10-18] MEDS ORDERED: CLAR500T PO (08:55)
[2016-10-18] MEDS ORDERED: OMEP20TA PO (08:55)
[2016-10-18] MEDS ORDERED: TRAM50TA PO (08:57)
[2016-10-18] MEDS ORDERED: TYLE325T PO (08:57)
[2016-10-18] MEDS: NICOTINE 14 MG/24 HR PATCH T-DERMAL SCH (09:00)
[2016-10-18] MEDS: POLYETHYLENE GLYCOL 17 GM PKG PO SCH (09:00)
[2016-10-18] MEDS: SODIUM CHLORIDE 0.9% FLUSH 10 ML FLUSH IV FLUSH SCH ×2 (09:00→20:19)
[2016-10-18] MEDS: GLYCERIN ADULT 2 GM SUPP RECTAL SCH (09:00)
[2016-10-18] MEDS: REMOVE OLD PATCH T-DERMAL SCH (09:00)
--- NOTE | 2016-10-18 09:00 | HHI.DS ---
Discharge Summary Admission Date Oct 15, 2016 at 10:49 am Discharge Date: Oct 18, 2016 Admitting Diagnosis Abdominal pain (1) Elevated troponin ICD Code: R74.8 (2) Constipation ICD Code: K59.00 (3) Diabetes ICD Code: E11.9 (4) Abdominal pain ICD Code: R10.9 Diagnosis: Principal (5) Hypertension ICD Code: I10 (6) Helicobacter pylori gastritis ICD Code: K29.70 Diagnosis: Principal Procedures Echo 10/12/2016 CONCLUSIONS The left ventricular systolic function is low normal with an estimated ejection fraction in the range of 50- 55%. Wall thickness is measured at the upper limits of normal. Normal left ventricular size. Mild mitral valve regurgitation. There is moderate tricuspid regurgitation. The estimated pulmonary arterial pressure is 44 mmHg. ERCP 10/15/2016 PROCEDURE PERFORMED ERCP with sphincterotomy and biliary dilatation brushing and biopsy Brief History - From Admission 80-year-old female being admitted for abdominal pain and elevated troponins. This is a difficult historian, daughter is present and helps out. Patient was in her usual state of health until 3 days ago when her chronic abdominal pain began to worsen and it felt "inflamed." She describes the pain as sharp, epigastric, nonradiating and severe. She says the pain improved with some pill that she cannot name and then also says that eating slightly makes the pain worse. She denies having any diarrhea or vomiting but does report some nausea. Reports having a decreased appetite. Says she takes Aleve quite regularly for her chronic abdominal pain and reports having a problem with constipation which he goes every 2 days. Says she drinks about 3-4 glasses of water a day. She denies having any dysuria, hematuria, hematochezia. Reports having some intermittent chest pain for the past few days as well along with some subjective palpitations that are intermittent. Denies feeling any fever. Reports having some neck pain and leg cramps as well. Daughter does additionally add that the patient had a mechanical fall a few days ago from a sitting position, no loss of consciousness reported. CBC/BMP: 10/18/16 0344 10/18/16 0344 Significant Findings Laboratory Tests Test 10/16/16 10/17/16 10/18/16 04:00 04:49 03:44 Red Blood Count 3.59 MIL/MM3 3.07 MIL/MM3 3.07 MIL/MM3 (4.00-5.30) (4.00-5.30) (4.00-5.30) Hemoglobin 11.5 GM/DL 9.9 GM/DL 10.0 GM/DL (11.6-15.3) (11.6-15.3) (11.6-15.3) Hematocrit 33.3 % 28.5 % 28.7 % (35.0-46.0) (35.0-46.0) (35.0-46.0) Potassium Level 2.9 MEQ/L (3.5-5.1) Blood Urea Nitrogen 23 MG/DL (7-18) 19 MG/DL (7-18) Random Glucose 237 MG/DL 136 MG/DL (74-106) (74-106) Magnesium Level 1.3 MG/DL (1.5-2.5) Aspartate Amino Transf 83 U/L (15-37) 63 U/L (15-37) 43 U/L (15-37) (AST/SGOT) Alanine Aminotransferase 109 U/L (10-53) 86 U/L (10-53) 67 U/L (10-53) (ALT/SGPT) Alkaline Phosphatase 170 U/L 134 U/L 125 U/L (45-117) (45-117) (45-117) Albumin 2.5 GM/DL 2.4 GM/DL 2.2 GM/DL (3.4-5.0) (3.4-5.0) (3.4-5.0) Neutrophils (%) (Auto) 73.4 % (16.0-70.0) Neutrophils # (Auto) 7.9 TH/MM3 (1.8-7.7) Chloride Level 110 MEQ/L 108 MEQ/L (98-107) (98-107) Creatinine 0.43 MG/DL 0.37 MG/DL (0.50-1.00) (0.50-1.00) Calcium Level 8.0 MG/DL 8.1 MG/DL (8.5-10.1) (8.5-10.1) Phosphorus Level 2.3 MG/DL (2.5-4.9) Total Protein 6.2 GM/DL (6.4-8.2) Imaging Last Impressions GI Procedure 10/15/16 0000 Signed Impressions: Service Date/Time: Saturday, October 15, 2016 15:19 - CONCLUSION: ERCP as above. Killian Lo MD Myocardial Perfusion Scan [facility] 10/13/16 0000 Signed Impressions: Service Date/Time: October 10:46 - CONCLUSION: Normal examination. RISK CATEGORY: Low (<1%% Annual Mortality Rate) Juan Carlos Corona MD Liver Ultrasound 10/12/16 0000 Signed Impressions: Service Date/Time: Wednesday, October 12, 2016 09:18 - CONCLUSION: Biliary ductal and pancreatic ductal dilatation, similar to prior. Juan Carlos Corona MD Abdomen/Pelvis CT 10/11/16 1029 Signed Impressions: Service Date/Time: Tuesday, October 11, 2016 12:59 - CONCLUSION: 1. No acute findings. Biliary ductal dilatation similar to 2011, status post cholecystectomy. No acute traumatic injury identified within the abdomen and pelvis. Dariwn Arana MD Lung Scan-V Nuclear Medicine 10/11/16 0000 Signed Impressions: Service Date/Time: Tuesday, October 11, 2016 15:23 - CONCLUSION: Normal examination. Negative for pulmonary embolus. Darwin Arana MD Head CT 10/11/16 0000 Signed Impressions: Service Date/Time: Tuesday, October 11, 2016 12:54 - CONCLUSION: 1. No evidence of acute infarct, hemorrhage, mass or edema. 2. Generalized volume loss characteristic of an aging brain. Killian Lo MD Chest X-Ray 10/11/16 0000 Signed Impressions: Service Date/Time: Tuesday, October 11, 2016 10:47 - CONCLUSION: No acute intrathoracic disease. Deandre Horvath MD PE at Discharge GENERAL: Alert, NAD. SKIN: Warm and dry. HEAD: Normocephalic. EYES: No scleral icterus. No injection or drainage. NECK: Supple, trachea midline. No JVD or lymphadenopathy. CARDIOVASCULAR: Regular rate and rhythm without murmurs, gallops, or rubs. RESPIRATORY: Breath sounds equal bilaterally. No accessory muscle use. GASTROINTESTINAL: Abdomen soft, diffuse tenderness on palpation, nondistended. MUSCULOSKELETAL: No cyanosis, or edema. BACK: Nontender without obvious deformity. No CVA tenderness. Pt update on day of discharge Patient complains of epigastric pain. However, she is resting well. No fever, chills. We discussed regarding H. Pylori treatment. Pt Condition on Discharge: Good Discharge Disposition: Discharge to SNF Discharge Time: > 30 minutes Discharge Instructions DIET: Follow Instructions for: As Tolerated, No Restrictions Additional Diet Instructions: Avoid greasy, spicy food. Activities you can perform: Regular-No Restrictions Follow up Referrals: Gastroenterology - 2 Weeks with Maxx Andres MD [facility]/HALFW[facility]/ New Medications: Acetaminophen (Tylenol) 325 Mg Tab 325 MG PO Q6H PRN PAIN SCALE 1 TO 6 #30 Ref 0 TAB Amoxicillin (Amoxicillin) 500 Mg Cap 1000 MG PO BID H. Pylori treatment Days 14 Ref 0 CAP Clarithromycin (Clarithromycin) 500 Mg Tab 500 MG PO BID H. Pylori treatment Days 14 Ref 0 TAB Omeprazole (Omeprazole) 20 Mg Tab 20 MG PO BID H. Pylori treatment #30 Ref 0 TAB Sucralfate Liq (Carafate Liq) 1 Gm/10 Ml Susp 1 GM PO TID on empty stomach Duodenal ulcer #900 Ref 0 ML Tramadol (Tramadol) 50 Mg Tab 50 MG PO Q8H PRN PAIN SCALE 7 TO 10 #20 Ref 0 TAB Continued Medications: Amitriptyline (Amitriptyline) 10 Mg Tab 10-20 MG PO HS TAB Aspirin DR (Ecotrin Low Strength) 81 Mg Tabdr 81 MG PO DAILY #30 Ref 0 TAB Atorvastatin (Lipitor) 40 Mg Tab 40 MG PO HS Cholesterol Management #30 Ref 0 TAB Bethanechol (Bethanechol) 25 Mg Tab 12.5 MG PO QID Take 1hr before meals and at beditime Urinary Symptom Managemen Ref 0 TAB Donepezil HCl (Aricept) 5 Mg Tablet 5 MG PO DAILY Glipizide ER (Glipizide ER) 10 Mg Malgorzata 10 MG PO DAILY Take with breakfast or first main meal of the day Blood Sugar Management #30 Ref 0 TAB Lisinopril-Hctz (Lisinopril-Hctz) 20-25 Mg Tab 1 TAB PO DAILY Blood Pressure Management #30 Ref 0 TAB Meclizine (Meclizine) 25 Mg Tab 25 MG PO TID PRN VERTIGO Ref 0 TAB Omeprazole (Omeprazole) 40 Mg Cap 40 MG PO DAILY #30 Ref 0 CAP Ava Nielson DO Oct 18, 2016 9:00 am
--- NOTE | 2016-10-18 09:37 | HHI.GIFU ---
Subjective Remarks Resting in bed. Continues to have a mild epigastric discomfort. No n/v. (+) BM. (Beena Osorio HECTOR) Objective Vitals I&O Vital Signs Date Time Temp Pulse Resp B/P Pulse Ox O2 Delivery O2 Flow Rate FiO2 10/18/16 08:00 97.4 81 16 159/71 100 10/18/16 00:00 97.8 62 16 136/63 98 10/17/16 20:00 97.1 80 18 125/57 93 10/17/16 18:11 94 21 10/17/16 16:00 97.3 59 16 150/65 94 10/17/16 12:00 96.1 76 17 134/75 100 I/O 10/17/16 10/17/16 10/17/16 10/18/16 10/18/16 10/18/16 07:00 15:00 23:00 07:00 15:00 23:00 Intake Total 566 ml 240 ml 620 ml 120 ml Balance 566 ml 240 ml 620 ml 120 ml Intake Oral 240 ml 240 ml 620 ml 120 ml IV Total 326 ml 0 ml 0 ml # Voids 3 3 2 2 # Bowel Movements 0 1 0 0 Laboratory Laboratory Tests Test 10/18/16 03:44 White Blood Count 9.0 Red Blood Count 3.07 Hemoglobin 10.0 Hematocrit 28.7 Mean Corpuscular Volume 93.6 Mean Corpuscular Hemoglobin 32.5 Mean Corpuscular Hemoglobin 34.7 Concent Red Cell Distribution Width 12.0 Platelet Count 210 Mean Platelet Volume 9.0 Sodium Level 140 Potassium Level 3.8 Chloride Level 108 Carbon Dioxide Level 25.7 Anion Gap 6 Blood Urea Nitrogen 15 Creatinine 0.37 Estimat Glomerular Filtration 168 Rate Random Glucose 104 Calcium Level 8.1 Total Bilirubin 0.5 Aspartate Amino Transf 43 (AST/SGOT) Alanine Aminotransferase 67 (ALT/SGPT) Alkaline Phosphatase 125 Total Protein 6.2 Albumin 2.2 Imaging Last Impressions GI Procedure 10/15/16 0000 Signed Impressions: Service Date/Time: Saturday, October 15, 2016 15:19 - CONCLUSION: ERCP as above. Killian Lo MD Myocardial Perfusion Scan Nuc Med 10/13/16 0000 Signed Impressions: Service Date/Time: October 10:46 - CONCLUSION: Normal examination. RISK CATEGORY: Low (<1%% Annual Mortality Rate) Juan Carlos Corona MD Liver Ultrasound 10/12/16 0000 Signed Impressions: Service Date/Time: Wednesday, October 12, 2016 09:18 - CONCLUSION: Biliary ductal and pancreatic ductal dilatation, similar to prior. Juan Carlos Corona MD Abdomen/Pelvis CT 10/11/16 1029 Signed Impressions: Service Date/Time: Tuesday, October 11, 2016 12:59 - CONCLUSION: 1. No acute findings. Biliary ductal dilatation similar to 2011, status post cholecystectomy. No acute traumatic injury identified within the abdomen and pelvis. Darwin Arana MD Lung Scan-VQ Nuclear Medicine 10/11/16 0000 Signed Impressions: Service Date/Time: Tuesday, October 11, 2016 15:23 - CONCLUSION: Normal examination. Negative for pulmonary embolus. Darwin Arana MD Head CT 10/11/16 0000 Signed Impressions: Service Date/Time: Tuesday, October 11, 2016 12:54 - CONCLUSION: 1. No evidence of acute infarct, hemorrhage, mass or edema. 2. Generalized volume loss characteristic of an aging brain. Killian Lo MD Chest X-Ray 10/11/16 0000 Signed Impressions: Service Date/Time: Tuesday, October 11, 2016 10:47 - CONCLUSION: No acute intrathoracic disease. Deandre Horvath MD Physical Exam HEENT: Normocephalic; atraumatic; no jaundice. CHEST: CTA CARDIAC: RRR. ABDOMEN: Soft, nondistended, mild epigastric discomfort; no hepatosplenomegaly ; bowel sounds x 4. EXTREMITIES: No clubbing, cyanosis, or edema. SKIN: Normal; no rash; no jaundice. 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 She has had this pain several years, usually has flares once a month. S/P workup with Dr. Cho in 2010, when she was hospitalized for abdominal pain and vomiting with elevated LFTs and chronic biliary ductal dilatation. 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 Her LFTs normalize and her HIDA scan was unremarkable. She has been evaluated by Dr. Worley in 2011 for evaluation of chronic abdominal pain and the plan was for a gastric emptying scan, Dexilant 60 mg by mouth daily, monitor LFTs, and if above workup was negative and she continued to have pain consider endoscopic ultrasound. Colonoscopy (08/23/11) revealed melanosis throughout the colon, medium internal hemorrhoids, moderate external hemorrhoids. It was recommended that she have a repeat colonoscopy in 5 years. Gastric emptying scan (09/09/11)---> negative examination. Currently on Bethanechol and Omeprazole. Currently having intermittent sharp abdominal pain epigastric area, mid and lower abdomen that radiates to left anterior chest and back. Abdomen/Pelvis CT (10/11/16)---> 1. No acute findings. Biliary ductal dilatation similar to 2011, status post cholecystectomy. No acute traumatic injury identified within the abdomen and pelvis. Liver Ultrasound (10/12/16)----> Biliary ductal and pancreatic ductal dilatation, similar to prior. 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 T. Bili 0.5, AST 43, ALT 67, Alk Phosph 125. Of note, she was noted to have H. Pylori Ag (+). Started on tx- amoxicillin, clarithromycin, ppi. Still with epigastric discomfort- will add carafate liquid. - Elevated LFTs. CT with biliary dilatation similar to 2011, s/p cholecystectomy. Liver US as above. Previously had (+) VAMSI 1:80. Hepatitis negative, AFP 0.7, Ferritin 362, Iron saturation 19.0%, VAMSI positive, VAMSI 1:80, diffuse pattern, AMA negative, ASMA negative, Alpha 1 antitrypsin 176. LFTs improving. Ceruloplasmin 43. - Chronically dilated CBD. S/P ERCP as above. ERCP with sphincterotomy and biliary dilatation brushing and biopsy 10/15--Significant dilatation of the common bile duct with no significant flow of contrast into the duodenum prior to intervention. 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 LFTs stable, improving. - Elevated troponin. Cardiology following. - HTN, Anxiety, DM per attending. PLAN: - GEMA - Tx for H. Pylori- clarithromycin, amoxicillin, PPI - Add Carafate - Okay to d/c home from GI standpoint - FU VERONICA 2 weeks - Further recommendations to follow based on results of above - Pt seen and examined by Dr. Andres and myself and this note is written on his behalf (Beena Osorio) Physician Comments Patient seen and examined Agree with above Continue current supportive care Monitor labs LFTs noted to be declining and the ampullary biopsies negative most likely the patient just had a benign stricture from old scarring Patient follow-up with GI post discharge (Maxx Andres MD) Beena Osorio Oct 18, 2016 09:37 Maxx Andres MD Oct 18, 2016 18:19
[2016-10-18] MEDS: SUCRALFATE 1 GM/10 ML CUP PO SCH ×3 (10:32→20:17)
[2016-10-18] MEDS: BETHANECHOL CHL 25 MG TAB PO SCH ×4 (10:33→20:09)
[2016-10-18] MEDS: LISINOPRIL 20 MG TAB PO SCH (10:33)
[2016-10-18] MEDS: DILTIAZEM-CD 120 MG CAP ER PO SCH (10:33)
[2016-10-18] MEDS: DONEPEZIL HCL 5 MG TAB PO SCH (10:33)
[2016-10-18] MEDS: AMITRIPTYLINE HCL 10 MG TAB PO SCH (20:09)
[2016-10-18] MEDS: ATORVASTATIN 40 MG TAB PO SCH (20:09)
--- NOTE | 2016-10-18 23:51 | HHI.PR ---
Objective Vitals Vital Signs Date Time Temp Pulse Resp B/P Pulse Ox O2 Delivery O2 Flow Rate FiO2 10/18/16 20:13 97.8 68 18 131/61 100 10/18/16 18:02 99 21 10/18/16 16:00 97.4 72 14 137/59 100 10/18/16 11:58 95.3 71 12 140/63 100 10/18/16 10:16 92 21 10/18/16 08:00 97.4 81 16 159/71 100 10/18/16 00:00 97.8 62 16 136/63 98 I/O 10/17/16 10/17/16 10/17/16 10/18/16 10/18/16 10/18/16 07:00 15:00 23:00 07:00 15:00 23:00 Intake Total 566 ml 240 ml 620 ml 120 ml 240 ml 380 ml Balance 566 ml 240 ml 620 ml 120 ml 240 ml 380 ml Intake Oral 240 ml 240 ml 620 ml 120 ml 240 ml 380 ml IV Total 326 ml 0 ml 0 ml # Voids 3 3 2 2 2 2 # Bowel Movements 0 1 0 0 Result Diagram: 10/18/16 0344 10/18/16 0344 Objective Remarks GENERAL: Alert, NAD. SKIN: Warm and dry. HEAD: Normocephalic. EYES: No scleral icterus. No injection or drainage. NECK: Supple, trachea midline. No JVD or lymphadenopathy. CARDIOVASCULAR: Regular rate and rhythm without murmurs, gallops, or rubs. RESPIRATORY: Breath sounds equal bilaterally. No accessory muscle use. GASTROINTESTINAL: Abdomen soft, diffuse tenderness on palpation, nondistended. MUSCULOSKELETAL: No cyanosis, or edema. BACK: Nontender without obvious deformity. No CVA tenderness. Procedures Echo 10/12/2016 CONCLUSIONS The left ventricular systolic function is low normal with an estimated ejection fraction in the range of 50- 55%. Wall thickness is measured at the upper limits of normal. Normal left ventricular size. Mild mitral valve regurgitation. There is moderate tricuspid regurgitation. The estimated pulmonary arterial pressure is 44 mmHg. ERCP 10/15/2016 PROCEDURE PERFORMED ERCP with sphincterotomy and biliary dilatation brushing and biopsy A/P Problem List: (1) Elevated troponin ICD Code: R74.8 Status: Acute (2) Constipation ICD Code: K59.00 Status: Chronic (3) Diabetes ICD Code: E11.9 Status: Chronic (4) Abdominal pain ICD Code: R10.9 Status: Acute (5) Hypertension ICD Code: I10 Status: Chronic (6) Helicobacter pylori gastritis ICD Code: K29.70 Status: Acute Assessment and Plan 80-year-old female with history of diabetes and hypertension, presents with abdominal pain (acute on chronic) and found to have elevated troponin and abnormal EKG - Abdominal pain with Transaminitis - Unclear etiology of elevated LFTs, abdominal pain suspect multifactorial with constipation and gastritis with possible NSAID overuse. -Lipase wnl. LFTs elevated, but trending down. Tylenol level < 2.0, hepatitis panel negative. -H. pylori stool antigen is positive. This should likely be treated. Will discuss with GI. - Clarithromycin, Amoxicillin and PPI would be a reasonable choice. -CT abdomen reviewed, biliary duct has chronic dilatation at 14 mm, no signs of any acute process. Liver U/S reviewed, again shows biliary ductal and pancreatic ductal dilatation, similar to prior. -Continue Protonix IV daily. -Continue IV hydration, antiemetics prn -Consulted gastroenterology, status post ERCP with biopsies. -VAMSI screen positive, Titer 1:80 - this is usually not significant. - Elevated troponin, Abnormal EKG with T-wave inversions: no complains of chest pain however +epigastric pain as above. - Trended cardiac enzymes, Troponins 0.15, 0.11, 0.08. EKG with anterolateral T-wave inversions. - Consulted cardiology - Echocardiogram with EF 50-55%, mild MR, moderate TR - Nuclear stress test nonischemic - Per Dr. Blanc, neil to d/c from cardiac standpoint - Hypertension: chronic, reasonably controlled - Continue home Cardizem and lisinopril. Hold HCTZ with vomiting and on IVF. - Diabetes: chronic, stable - hold home glipizide while nothing by mouth. - Monitor accu-cheks and cover with SSI - Continue D5 with IVF - Hypoglycemia protocol - Sinus Tachycardia: suspect secondary to dehydration - EKG with sinus tachycardia - Continue IVF - monitor electrolytes - Heart rate controlled on Cardizem 120mg - Multiple Recent Falls: unclear etiology - consulted PT, recommends SNF - monitor on telemetry Full code. SCDs. Ava Nielson DO Oct 18, 2016 23:51
[2016-10-19] MEDS: SUCRALFATE 1 GM/10 ML CUP PO SCH ×2 (05:43→11:00)
[2016-10-19] MEDS: INSULIN ASPART SUPPLEMENTAL SCALE SQ SCH ×2 (07:00→11:00)
[2016-10-19 08:00] VITALS: BP 119/58; PULSE 127; RESP 18; TEMP 96.9; O2SAT 97
[2016-10-19] MEDS: GLYCERIN ADULT 2 GM SUPP RECTAL SCH (08:35)
[2016-10-19] MEDS: LISINOPRIL 20 MG TAB PO SCH (08:37)
[2016-10-19] MEDS: SODIUM CHLORIDE 0.9% FLUSH 10 ML FLUSH IV FLUSH SCH (08:37)
[2016-10-19] MEDS: DONEPEZIL HCL 5 MG TAB PO SCH (08:37)
[2016-10-19] MEDS: POLYETHYLENE GLYCOL 17 GM PKG PO SCH (08:37)
[2016-10-19] MEDS: BETHANECHOL CHL 25 MG TAB PO SCH (08:37)
[2016-10-19] MEDS: DILTIAZEM-CD 120 MG CAP ER PO SCH (08:37)
[2016-10-19] MEDS: NICOTINE 14 MG/24 HR PATCH T-DERMAL SCH (08:38)
[2016-10-19] MEDS: REMOVE OLD PATCH T-DERMAL SCH (08:38)
[2016-10-19] MEDS: D5-1/2 NS + KCL 20 MEQ INJ 1,000 ML IV SCH (10:28)
[2016-10-19] MEDS ORDERED: AMOX500C PO (10:37)
[2016-10-19] MEDS ORDERED: CLAR500T PO (10:37)
--- NOTE | 2016-10-19 10:38 | HHI.FF ---
Face to Face Verification Diagnosis: (1) Helicobacter pylori gastritis (2) Abdominal pain (3) Hypertension (4) Elevated troponin Physical Therapy Order: Evaluate and Treat, Improve ambulation, Strength and gait training Home Health Nursing Order: Medical education Signs/symptoms of disease process Medication education-adverse effect Nursing assessment with vital signs I have seen patient Janina Matthew on 10/19/16. My clinical findings support the need for the requested home health care services because: Deconditioned w/ increased weakness Limited ability to care for self Need for psychosocial assistance Infection w/ risk of complications I certify that my clinical findings support that this patient is homebound because: Impaired cognitive ability/safety Unsteady gait/balance Unsafe to leave home unassisted Need for psychosocial assistance Unable to use public transportation Ava Nielson DO Oct 19, 2016 10:38 am
--- NOTE | 2016-10-19 10:40 | HHI.PR ---
Subjective Remarks Follow up for abdominal pain s/p ERCP with sphincterotomy and biliary dilation brushing. Ms. Matthew is doing well. Sitting in her chair, able to ambulate well. No fever, chills. She expresses desire to go home instead of SNF. She has a lot of support at home. Objective Vitals Vital Signs Date Time Temp Pulse Resp B/P Pulse Ox O2 Delivery O2 Flow Rate FiO2 10/19/16 08:00 96.9 127 18 119/58 97 10/18/16 23:53 98.4 78 17 158/65 96 10/18/16 20:13 97.8 68 18 131/61 100 10/18/16 18:02 99 21 10/18/16 16:00 97.4 72 14 137/59 100 10/18/16 11:58 95.3 71 12 140/63 100 I/O 10/18/16 10/18/16 10/18/16 10/19/16 10/19/16 10/19/16 06:59 14:59 22:59 06:59 14:59 22:59 Intake Total 740 ml 240 ml 380 ml 280 ml Balance 740 ml 240 ml 380 ml 280 ml Intake Oral 740 ml 240 ml 380 ml 280 ml IV Total 0 ml 0 ml 0 ml # Voids 4 2 2 2 # Bowel Movements 0 Result Diagram: 10/18/16 0344 10/18/16 034 Objective Remarks GENERAL: Alert, NAD. SKIN: Warm and dry. HEAD: Normocephalic. EYES: No scleral icterus. No injection or drainage. NECK: Supple, trachea midline. No JVD or lymphadenopathy. CARDIOVASCULAR: Regular rate and rhythm without murmurs, gallops, or rubs. RESPIRATORY: Breath sounds equal bilaterally. No accessory muscle use. GASTROINTESTINAL: Abdomen soft, diffuse tenderness on palpation, nondistended. MUSCULOSKELETAL: No cyanosis, or edema. BACK: Nontender without obvious deformity. No CVA tenderness. Procedures Echo 10/12/2016 CONCLUSIONS The left ventricular systolic function is low normal with an estimated ejection fraction in the range of 50- 55%. Wall thickness is measured at the upper limits of normal. Normal left ventricular size. Mild mitral valve regurgitation. There is moderate tricuspid regurgitation. The estimated pulmonary arterial pressure is 44 mmHg. ERCP 10/15/2016 PROCEDURE PERFORMED ERCP with sphincterotomy and biliary dilatation brushing and biopsy A/P Problem List: (1) Elevated troponin ICD Code: R74.8 Status: Acute (2) Constipation ICD Code: K59.00 Status: Chronic (3) Diabetes ICD Code: E11.9 Status: Chronic (4) Abdominal pain ICD Code: R10.9 Status: Acute (5) Hypertension ICD Code: I10 Status: Chronic (6) Helicobacter pylori gastritis ICD Code: K29.70 Status: Acute Assessment and Plan 80-year-old female with history of diabetes and hypertension, presents with abdominal pain (acute on chronic) and found to have elevated troponin and abnormal EKG - Abdominal pain with Transaminitis - Unclear etiology of elevated LFTs, abdominal pain suspect multifactorial with constipation and gastritis with possible NSAID overuse. -Lipase wnl. LFTs elevated, but trending down. Tylenol level < 2.0, hepatitis panel negative. -H. pylori stool antigen is positive. Will do 2 week treatments with PPI + Amoxicillin + Clarithromycin - Clarithromycin, Amoxicillin and PPI would be a reasonable choice. -CT abdomen reviewed, biliary duct has chronic dilatation at 14 mm, no signs of any acute process. Liver U/S reviewed, again shows biliary ductal and pancreatic ductal dilatation, similar to prior. -Continue Protonix IV daily. -Continue IV hydration, antiemetics prn -Consulted gastroenterology, status post ERCP with biopsies. -VAMSI screen positive, Titer 1:80 - this is usually not significant. - Elevated troponin, Abnormal EKG with T-wave inversions: no complains of chest pain however +epigastric pain as above. - Trended cardiac enzymes, Troponins 0.15, 0.11, 0.08. EKG with anterolateral T-wave inversions. - Consulted cardiology - Echocardiogram with EF 50-55%, mild MR, moderate TR - Nuclear stress test nonischemic - Per Dr. Blanc, ok to d/c from cardiac standpoint - Hypertension: chronic, reasonably controlled - Continue home Cardizem and lisinopril. Hold HCTZ with vomiting and on IVF. - Diabetes: chronic, stable - hold home glipizide while nothing by mouth. - Monitor accu-cheks and cover with SSI - Continue D5 with IVF - Hypoglycemia protocol - Sinus Tachycardia: suspect secondary to dehydration - EKG with sinus tachycardia - Continue IVF - monitor electrolytes - Heart rate controlled on Cardizem 120mg - Multiple Recent Falls: unclear etiology - consulted PT, recommends SNF - monitor on telemetry Full code. SCDs. Ava Nielson DO Oct 19, 2016 10:40 am
[2016-10-19] MEDS ORDERED: WALKER WHEELS/F1 MIS (10:41)
== END 2016-10-19 11:22 | DRG 392 ==
LOC: NEPE 09:37 → NEDH 14:01 → NEPFCDU 16:43 → OBSVTOIN 10-15 10:49 → N07B 10-15 15:58 → N07A 10-15 17:13
PROVIDERS: ADMIT Hospitalist; ATTEND Hospitalist
PROC: 0FBC8ZX Excision of Ampulla of Vater, Via Natural or Artificial Opening Endoscopic, Diagnostic (ICD-10-PCS; 2016-10-15)
PROC: 0FB98ZX Excision of Common Bile Duct, Via Natural or Artificial Opening Endoscopic, Diagnostic (ICD-10-PCS; 2016-10-15)
PROC: 0F798ZZ Dilation of Common Bile Duct, Via Natural or Artificial Opening Endoscopic (ICD-10-PCS; principal; 2016-10-15 14:10)
DX: K29.70 Gastritis, unspecified, without bleeding (principal); K83.8 Other specified diseases of biliary tract; R00.1 Bradycardia, unspecified; G30.9 Alzheimer's disease, unspecified; E83.42 Hypomagnesemia; I08.1 Rheumatic disorders of both mitral and tricuspid valves; E86.0 Dehydration; F02.80 Dementia in other diseases classified elsewhere, unspecified severity, without behavioral disturbance, psychotic disturbance, mood disturbance, and anxiety; E11.9 Type 2 diabetes mellitus without complications; B96.81 Helicobacter pylori [H. pylori] as the cause of diseases classified elsewhere; I10 Essential (primary) hypertension; G89.29 Other chronic pain; R42 Dizziness and giddiness; K59.00 Constipation, unspecified; Z79.84 Long term (current) use of oral hypoglycemic drugs; E78.5 Hyperlipidemia, unspecified; K21.9 Gastro-esophageal reflux disease without esophagitis; K22.70 Barrett's esophagus without dysplasia; M81.0 Age-related osteoporosis without current pathological fracture; F41.9 Anxiety disorder, unspecified; E87.6 Hypokalemia; R29.6 Repeated falls
CPT/HCPCS: 70450; 71010; 74177; 74330; 76705; 76937; 78452; 78582; 80048; 80053; 80069; 80074; 80076; 80307; 81001; 82103; 82105; 82390; 82550; 82728; 82948; 83520; 83540; 83550; 83690; 83735; 84484; 85025; 85027; 85610; 85730; 86038; 86039; 86255; 87338; 87493; 88112; 88305; 93005; 93017; 93308; 96361; 96365; 96366; 96372; 96374; 96375; 96376; A9502; A9540; A9567; C1769; C9113; G0378; G8987-GP; G8988-GP; J1815; J2060; J2270; J2370; J2405; J2710; J2785; J3010; J3475; J3480; J7030; J7040; J7120; Q9967

== ENCOUNTER 2016-11-24 11:00 | Emergency (ER) | payer MEDICARE, OTHER ==
[~2016-11-24] VITALS: Ht 149.9 cm; Wt 49.0 kg
[~2016-11-24 11:00] MED LIST changes: +AMIT10TA6 PO; +AMOX500C PO; +ARIC5TAB2 PO; +ASPI-147 PO; +BETH25TA2 PO; +CARA1SUS3 PO; -CART240C4 PO; -CITRTAB8 PO; +CLAR500T PO; +GLIP1TAB51 PO; -GLUCTAB OR; -HYDR12.57 PO; +LIPI40TA PO; -LISI-360 PO; +LISI20TA3 PO; +MECL-62 PO; -NEXI40CA PO; +OMEP20TA PO; +OMEP40CA2 PO; +TRAM50TA PO; +TYLE325T PO; +WALKER WHEELS/F1 MIS
[2016-11-24] MEDS ORDERED: IOHEXOL 350 MG/ML 10 ML VIAL (for RAD DIAG) IVCONTRAST ONE (11:01)
[2016-11-24 11:02] VITALS: BP 117/90; PULSE 101; RESP 16; TEMP 97.7; O2SAT 98
[2016-11-24] MEDS ORDERED: SODIUM CHLOR 0.9% 1000 ML INJ 1,000 ML IV SCH (11:33)
--- NOTE | 2016-11-24 11:42 | PD ---
HPI Chief Complaint: Abdominal Pain Time Seen by Provider: 11:25 Travel History International Travel<30 days: No Contact w/Intl Traveler<30days: No Traveled to known affect area: No History of Present Illness HPI This is an 80-year-old female who presents for evaluation of abdominal pain. Symptoms started 2 days ago. She describes it as an intermittent sharp pain in the right lower quadrant of her abdomen. She endorses nausea, 2 episodes of emesis yesterday. She reports an elevated temperature yesterday of 100.3 checked temporally. She is currently sprinting mild nausea and mild pain. Denies chest pain, shortness of breath, cough or congestion, diarrhea or constipation, flank pain, dysuria. The patient reports that she has a history of frequent episodes of epigastric abdominal pain but this is different. Per chart review the patient was admitted here on October 15 for valuation of epigastric abdominal pain, elevated troponin and she underwent multiple tests including CT abdomen and pelvis, myocardial perfusion scan, ventilation perfusion of the lungs, head CT, liver ultrasound, ERCP. She did have a positive stool H. pylori antigen and, upon discharge, she was given prescriptions for amoxicillin, clarithromycin, omeprazole, Carafate, tramadol. She reports that she still has some of the medication left despite being discharged over one month ago and it doesn't appear that the patient has been taking the medications as prescribed. She is somewhat elusive in regards to why she has not been taking his prescribed medications, she does report that over the past few days she has been throwing up her medication. She has no other complaints at this time. PFSH Past Medical History Autoimmune Disease: No Blood Disorders: No Heart Rhythm Problems: No Cancer: No Cardiovascular Problems: Yes High Cholesterol: No Chemotherapy: No Chest Pain: Yes Congestive Heart Failure: No Diabetes: Yes Patient Takes Glucophage: No Diminished Hearing: No Endocrine: No Gastrointestinal Disorders: Yes Genitourinary: No Headaches: Yes Hypertension: Yes Immune Disorder: No Musculoskeletal: No Neurologic: No Psychiatric: No Reproductive: No Respiratory: No Immunizations Current: Yes Radiation Therapy: No Thyroid Disease: No Ulcer: Yes (STOMACH ULCER) Tetanus Vaccination: > 5 Years Influenza Vaccination: Yes Menopausal: Yes : 1 Para: 1 Miscarriage: 0 : 0 Tubal Ligation: Yes Past Surgical History Appendectomy: Yes (1955) Cholecystectomy: Yes (2002) Other Surgery: Yes (BREAST REDUCTION) Social History Alcohol Use: No Tobacco Use: No Substance Use: No Allergies-Medications (Allergen,Severity, Reaction): Coded Allergies: ciprofloxacin (Verified Allergy, Severe, RASH, VOMITING, 11/24/16) Reported Meds & Prescriptions Reported Meds & Active Scripts Active Reglan (Metoclopramide HCl) 10 Mg Tab 10 Mg PO QID Tramadol (Tramadol HCl) 50 Mg Tab 50 Mg PO Q8H PRN Carafate Liq (Sucralfate) 1 Gm/10 Ml Susp 1 Gm PO TID on empty stomach Reported Ecotrin Low Strength (Aspirin) 81 Mg Tabdr 81 Mg PO DAILY Meclizine (Meclizine HCl) 25 Mg Tab 25 Mg PO TID PRN Amitriptyline (Amitriptyline HCl) 10 Mg Tab 10-20 Mg PO HS Aricept (Donepezil HCl) 5 Mg Tablet 5 Mg PO DAILY Lisinopril-Hctz 20-25 Mg Tab 1 Tab PO DAILY Omeprazole 40 Mg Cap 40 Mg PO DAILY Bethanechol 25 Mg Tab 12.5 Mg PO QID Take 1hr before meals and at beditime Glipizide ER (Glipizide) 10 Mg Malgorzata 10 Mg PO DAILY Take with breakfast or first main meal of the day Lipitor (Atorvastatin Calcium) 40 Mg Tab 40 Mg PO HS Review of Systems Except as stated in HPI: all other systems reviewed are Neg Physical Exam Narrative GENERAL: Pleasant well-developed well-nourished female in no acute distress resting comfortably on hospital bed. SKIN: Warm and dry. HEAD: Atraumatic. Normocephalic. EYES: Pupils equal and round. No scleral icterus. No injection or drainage. ENT: No nasal bleeding or discharge. Mucous membranes pink and moist. NECK: Trachea midline. No JVD. CARDIOVASCULAR: Regular rate and rhythm. No murmur appreciated. RESPIRATORY: No accessory muscle use. Clear to auscultation. Breath sounds equal bilaterally. No crackles no wheezing or rhonchi GASTROINTESTINAL: Abdomen soft, mild right lower quadrant tenderness to palpation without guarding. No CVA tenderness. MUSCULOSKELETAL: No obvious deformities. No edema. NEUROLOGICAL: Awake and alert. No obvious cranial nerve deficits. Motor grossly within normal limits. Normal speech. PSYCHIATRIC: Appropriate mood and affect; insight and judgment normal. Data Data Last Documented VS Vital Signs Date Time Temp Pulse Resp B/P (MAP) Pulse Ox O2 Delivery O2 Flow Rate FiO2 11/24/16 14:51 97.9 72 16 148/63 (91) 100 Room Air Orders Orders Complete Blood Count With Diff (11/24/16 11:33) Comprehensive Metabolic Panel (11/24/16 11:33) Lipase (11/24/16 11:33) Lactic Acid (11/24/16 11:33) Urinalysis - C+S If Indicated (11/24/16 11:33) Ct Abd/Pel W Iv Contrast(Rout) (11/24/16 11:33) Iv Access Insert/Monitor (11/24/16 11:33) Ecg Monitoring (11/24/16 11:33) Morphine Inj (Morphine Inj) (11/24/16 11:45) Ondansetron Inj (Zofran Inj) (11/24/16 11:45) Sodium Chlor 0.9% 1000 Ml Inj (Ns 1000 M (11/24/16 11:33) Electrocardiogram (11/24/16 11:33) Blood Culture (11/24/16 11:33) Oral Contrast - Adult (11/24/16 11:44) Diatrizoate Liq ( Gastroview Liq) (11/24/16 12:10) Dextrose 50% In [place] (Vial) Inj (D50w (Vi (11/24/16 13:15) Dextrose 50% In [place] (Syr) Inj (D50w (Syr (11/24/16 13:13) Iohexol 350 Inj (Omnipaque 350 Inj) (11/24/16 11:01) Labs Laboratory Tests Test 11/24/16 11:41 11/24/16 15:00 White Blood Count 3.9 TH/MM3 Red Blood Count 3.85 MIL/MM3 Hemoglobin 11.5 GM/DL Hematocrit 35.6 % Mean Corpuscular Volume 92.5 FL Mean Corpuscular Hemoglobin 29.9 PG Mean Corpuscular Hemoglobin Concent 32.3 % Red Cell Distribution Width 13.5 % Platelet Count 194 TH/MM3 Mean Platelet Volume 8.9 FL Neutrophils (%) (Auto) 55.2 % Lymphocytes (%) (Auto) 35.0 % Monocytes (%) (Auto) 8.9 % Eosinophils (%) (Auto) 0.6 % Basophils (%) (Auto) 0.3 % Neutrophils # (Auto) 2.2 TH/MM3 Lymphocytes # (Auto) 1.4 TH/MM3 Monocytes # (Auto) 0.4 TH/MM3 Eosinophils # (Auto) 0.0 TH/MM3 Basophils # (Auto) 0.0 TH/MM3 CBC Comment DIFF FINAL Differential Comment Blood Urea Nitrogen 10 MG/DL Creatinine 0.38 MG/DL Random Glucose 51 MG/DL Total Protein 7.2 GM/DL Albumin 2.6 GM/DL Calcium Level 9.0 MG/DL Alkaline Phosphatase 68 U/L Aspartate Amino Transf (AST/SGOT) 76 U/L Alanine Aminotransferase (ALT/SGPT) 57 U/L Total Bilirubin 0.6 MG/DL Sodium Level 141 MEQ/L Potassium Level 4.1 MEQ/L Chloride Level 107 MEQ/L Carbon Dioxide Level 25.4 MEQ/L Anion Gap 9 MEQ/L Estimat Glomerular Filtration Rate 163 ML/MIN Lactic Acid Level 1.4 mmol/L Lipase 168 U/L Urine Color YELLOW Urine Turbidity CLEAR Urine pH 7.0 Urine Specific [place] 1.014 Urine Protein NEG mg/dL Urine Glucose (UA) 300 mg/dL Urine Ketones TRACE mg/dL Urine Occult Blood NEG Urine Nitrite NEG Urine Bilirubin NEG Urine Urobilinogen LESS THAN 2.0 MG/DL Urine Leukocyte Esterase NEG Urine RBC 1 /hpf Urine WBC 1 /hpf Urine Squamous Epithelial Cells 1 /hpf Urine Mucus FEW /lpf Microscopic Urinalysis Comment CULT NOT INDICATED MDM Medical Decision Making Medical Screen Exam Complete: Yes Emergency Medical Condition: Yes Medical Record Reviewed: Yes Interpretation(s) CBC reveals a CBC of 3.9 CMP reveals a glucose of 51, AST 76, ALT 57, albumin 2.6 EKG reveals sinus rhythm CT abdomen and pelvis CONCLUSION: 1. No acute findings. Cholecystectomy with biliary ductal dilatation similar to October 11. Small renal cysts. No obstruction, free fluid or free air. Differential Diagnosis Colitis, gastroenteritis, dehydration, urinary tract infection Narrative Course 80-year-old female here with right lower quadrant abdominal pain, nausea and vomiting for 2 days. She appears well. On examination she has mild right lower quadrant tenderness to palpation. Plan is for basic lab work, CT abdomen and pelvis. She was given a small dose of morphine as well as Zofran, IV fluids. The patient's laboratory is notable for mildly elevated AST and ALT as well as a random glucose of 51. The patient was given D50 and she feels improved. She is able to tolerate oral hydration on reexamination. The patient does have a history of diabetes and she takes glipizide, she took it yesterday but not today. Likely the combination of decreased oral intake in conjunction with glipizide use has caused her hypoglycemic episode. The patient is currently feeling better and so she'll be discharged. She is being given a prescription for Reglan for breakthrough nausea as Phenergan/Zofran have significant interactions with some of her other medications. Procedures EKG Prior to Arrival: Yes Diagnosis Primary Impression: Abdominal pain Qualified Codes: R10.31 - Right lower quadrant pain Additional Impression: Hypoglycemia Additional Instructions: Reglan for nausea. Stay well hydrated well-nourished. Follow-up with primary care physician. Return for any emergent medical conditions. Med/Other Pt SpecificInfo: Prescription(s) given Scripts Metoclopramide (Reglan) 10 Mg Tab 10 MG PO QID, #15 TAB 0 Refills Prov: Ashley Mcintyre MD 11/24/16 Disposition: 01 DISCHARGE HOME Condition: Stable Francisco Julio Nov 24, 2016 11:42
[2016-11-24] MEDS ORDERED: ONDANSETRON HCL 4 MG/2 ML VIAL IVP ONE (11:45)
[2016-11-24] MEDS ORDERED: MORPHINE SULFATE 4 MG/ML INJ IV PUSH ONE (11:45)
[2016-11-24 12:03] VITALS: BP 142/65; PULSE 75; RESP 16; TEMP 97.8; O2SAT 99
[2016-11-24] MEDS ORDERED: DIATRIZOATE MEGLUM/DIATRIZOATE SOD 9 ML CUP ONE (12:10)
[2016-11-24 12:12] LABS: AUTOMATED NEUTROPHIL # 2.2 TH/MM3 (1.8-7.7); BASOPHIL % 0.3 % (0.0-2.0); EOSINOPHIL % 0.6 % (0.0-4.0); HEMATOCRIT 35.6 % (35.0-46.0); HEMO FLAGS DIFF FINAL; LYMPHOCYTE # 1.4 TH/MM3 (1.0-4.8); MEAN CELL VOLUME 92.5 FL (80.0-100.0); MEAN CORPUSCULAR HEMOGLOBIN 29.9 PG (27.0-34.0); MEAN CORPUSCULAR HGB CONC 32.3 % (32.0-36.0); MONO % 8.9 % (0.0-8.0); NEUT % 55.2 % (16.0-70.0); PLATELET COUNT 194 TH/MM3 (150-450); RED BLOOD COUNT 3.85 MIL/MM3 (4.00-5.30); RED CELL DISTRIBUTION WIDTH 13.5 % (11.6-17.2); WHITE BLOOD COUNT 3.9 TH/MM3 (4.0-11.0)
[2016-11-24 12:46] LABS: ALKALINE PHOSPHATASE 68 U/L (45-117); ALT (GPT) 57 U/L (10-53); ANION GAP 9 MEQ/L (5-15); AST (GOT) 76 U/L (15-37); BICARBONATE 25.4 MEQ/L (21.0-32.0); BLOOD UREA NITROGEN 10 MG/DL (7-18); CHLORIDE 107 MEQ/L (98-107); GLOMERULAR FILTRATION RATE 163 ML/MIN (>89); POTASSIUM 4.1 MEQ/L (3.5-5.1); SODIUM (NA) 141 MEQ/L (136-145); TOTAL BILIRUBIN ADULT 0.6 MG/DL (0.2-1.0)
[2016-11-24 13:05] VITALS: BP 151/60; PULSE 78; RESP 16; TEMP 97.8; O2SAT 99
[2016-11-24] MEDS ORDERED: DEXTROSE 50% IN WATER 50 ML SYRINGE ONE (13:13)
[2016-11-24] MEDS ORDERED: DEXTROSE 50% IN WATER 50 ML VIAL(D50) IV PRN (13:15)
[2016-11-24 13:16] VITALS: BP 151/66; PULSE 86; RESP 16; TEMP 98; O2SAT 99
[2016-11-24 14:51] VITALS: BP 148/63; PULSE 72; RESP 16; TEMP 97.9; O2SAT 100
--- NOTE | 2016-11-24 15:21 | RADRPT ---
EXAM DATE/TIME: 11/24/2016 15:00 [facility] COMPARISON: CT ABDOMEN & PELVIS W CONTRAST, October 11, 2016, 12:59. INDICATIONS : Abdominal pain, vomiting, diarrhea. IV CONTRAST: 80 cc Omnipaque 350 (iohexol) IV ORAL CONTRAST: No oral contrast ingested. RADIATION DOSE: 4.64 CTDIvol (mGy) MEDICAL HISTORY : Diabetes mellitus type 2. Hypertension. Ulcers. SURGICAL HISTORY : Appendectomy. Cholecystectomy.Tubal ligation. ENCOUNTER: Initial ACUITY: 2 days PAIN SCALE: 4/10 LOCATION: Bilateral lower quadrant TECHNIQUE: Volumetric scanning of the abdomen and pelvis was performed. Using automated exposure control and ad justment of the mA and/or kV according to patient size, radiation dose was kept as low as reasonably achievable to obtain optimal diagnostic quality images. DICOM format image data is available electro nically for review and comparison. FINDINGS: There is dependent atelectasis at the lung bases. There is extrahepatic and intrahepatic biliary duct al dilatation the common bile duct measuring up to 15 mm. Previous cholecystectomy. Spleen, adrenals and pancreas unremarkable. Small bilateral renal cysts. There is no free fluid. No bowel obstruction. No adenopathy. No acute bony abnormalities. CONCLUSION: 1. No acute findings. Cholecystectomy with biliary ductal dilatation similar to October 11. Small renal cysts. No obstruction, free fluid or free air. Darwin Arana MD on November 24, 2016 at 15:14 Board Certified Radiologist. This report was verified electronically.
[2016-11-24 15:40] LABS: BLOOD, URINE NEG (NEG); COMMENT (UR) CULT NOT INDICATED; CULTURE IF INDICATED CULT NOT INDICATED; GLUCOSE,URINE 300 mg/dL (NEG); KETONE, URINE TRACE mg/dL (NEG); MUCUS URINE FEW /lpf (OCC); NITRITE,URINE NEG (NEG); SQUAMOUS EPITHELIAL CELL URINE 1 /hpf (0-5); URINE COLOR YELLOW (YELLW/STRAW)
[2016-11-24] MEDS ORDERED: REGL10TA5 PO (15:47)
[2016-11-24 15:52] VITALS: BP 118/77; TEMP 97.8
--- NOTE | 2016-11-25 16:54 | EKG ---
Date Performed: 11/24/2016 Time Performed: 11:59:06 PTAGE: 80 years EKG: Sinus rhythm NONSPECIFIC T-WAVE ABNORMALITY BORDERLINE ECG Since PREVIOUS TRACING : ST segments are improved and no longer tachycardic PREVIOUS TRACIN 10/11/2016 09.59 DOCTOR: Ivanna Blanc Interpretating Date/Time 11/25/2016 16:52:51
== END 2016-11-24 15:52 | disposition home or self-care (01) ==
LOC: NEPC 11:00
DX: R10.31 Right lower quadrant pain (principal); E11.649 Type 2 diabetes mellitus with hypoglycemia without coma; I10 Essential (primary) hypertension; Z79.84 Long term (current) use of oral hypoglycemic drugs
CPT/HCPCS: 74177; 80053; 81001; 83605; 83690; 85025; 87040; 93005; 96361; 96374; 96375; 99285; J2270; J2405; J7030; Q9963; Q9967

== ENCOUNTER 2016-11-29 10:10 | Emergency (ER) | payer MEDICARE, OTHER ==
[~2016-11-29] VITALS: Ht 157.5 cm; Wt 50.0 kg
[~2016-11-29 10:10] MED LIST changes: -AMOX500C PO; -CLAR500T PO; -OMEP20TA PO; +REGL10TA5 PO; -TYLE325T PO; -WALKER WHEELS/F1 MIS
[2016-11-29 10:14] VITALS: BP 140/71; PULSE 95; RESP 16; TEMP 97.9; O2SAT 95
[2016-11-29 10:31] VITALS: BP 135/62; PULSE 64; RESP 18; O2SAT 99
[2016-11-29 13:05] VITALS: BP 138/60; PULSE 79; RESP 16; O2SAT 100
[2016-11-29] MEDS ORDERED: SODIUM CHLOR 0.9% 1000 ML INJ 1,000 ML IV SCH (13:10)
[2016-11-29] MEDS ORDERED: SODIUM CHLORIDE 0.9% FLUSH 10 ML FLUSH IV FLUSH PRN (13:15)
[2016-11-29 13:36] LABS: AUTOMATED NEUTROPHIL # 3.6 TH/MM3 (1.8-7.7); BASOPHIL % 0.5 % (0.0-2.0); EOSINOPHIL % 0.6 % (0.0-4.0); HEMATOCRIT 36.8 % (35.0-46.0); HEMO FLAGS DIFF FINAL; LYMPH % 27.3 % (9.0-44.0); LYMPHOCYTE # 1.5 TH/MM3 (1.0-4.8); MEAN CELL VOLUME 92.4 FL (80.0-100.0); MEAN CORPUSCULAR HGB CONC 32.4 % (32.0-36.0); MONO % 5.9 % (0.0-8.0); NEUT % 65.7 % (16.0-70.0); PLATELET COUNT 234 TH/MM3 (150-450); RED BLOOD COUNT 3.98 MIL/MM3 (4.00-5.30); RED CELL DISTRIBUTION WIDTH 14.5 % (11.6-17.2); WHITE BLOOD COUNT 5.5 TH/MM3 (4.0-11.0)
[2016-11-29] MEDS ORDERED: ONDANSETRON HCL 4 MG/2 ML VIAL IV PUSH ONE (14:00)
[2016-11-29 14:09] LABS: BACTERIA, URINE RARE /hpf; BLOOD, URINE NEG (NEG); COMMENT (UR) CULTURE INDICATED; CULTURE IF INDICATED CULTURE INDICATED; GLUCOSE,URINE NEG (NEG); KETONE, URINE 10 mg/dL (NEG); MUCUS URINE FEW /lpf (OCC); NITRITE,URINE NEG (NEG); PH, URINE 7.5 (5.0-8.5); URINE COLOR YELLOW (YELLW/STRAW)
[2016-11-29 14:10] LABS: ALT (GPT) 33 U/L (10-53); ANION GAP 11 MEQ/L (5-15); AST (GOT) 44 U/L (15-37); BICARBONATE 24.2 MEQ/L (21.0-32.0); BLOOD UREA NITROGEN 7 MG/DL (7-18); CHLORIDE 106 MEQ/L (98-107); GLOMERULAR FILTRATION RATE 122 ML/MIN (>89); POTASSIUM 3.8 MEQ/L (3.5-5.1); SODIUM (NA) 141 MEQ/L (136-145)
[2016-11-29 14:12] LABS: ALKALINE PHOSPHATASE 74 U/L (45-117); TOTAL BILIRUBIN ADULT 0.5 MG/DL (0.2-1.0)
[2016-11-29] MEDS ORDERED: PIPERACIL-TAZO 4.5 GM PREMIX 100 ML IV ONE (14:15)
[2016-11-29] MEDS ORDERED: VANCOMYCIN INJ 1,000 MG in SODIUM CHLOR 0.9% 250 ML INJ 250 ML IV ONE (14:15)
[2016-11-29 14:45] VITALS: BP 154/75; PULSE 77; RESP 20; O2SAT 95
[2016-11-29] MEDS ORDERED: MACR100C2 PO (14:56)
--- NOTE | 2016-11-29 14:56 | PD ---
HPI Chief Complaint: Abdominal Pain Time Seen by Provider: 10:52 Travel History International Travel<30 days: No Contact w/Intl Traveler<30days: No Traveled to known affect area: No History of Present Illness HPI 80-year-old female came to the emergency room brought by her family for chronic abdominal pain. Patient is describing her pain in the right lower quadrant. Patient was here last week for the same complain when blood test and CT scan was done and they were within normal limits. Family is also saying that she looks weak and has been having trouble walking. She is awake and answering questions appropriately. She does not appear to be in any significant distress. Vital signs are stable. She points the pain to the right lower quadrant and radiating up to her right flank. No history of fever or chills. She has been nauseous as per her. [facility] Past Medical History Narrative Medical List of her past medical, surgical, social and family history was reviewed from the nursing note Autoimmune Disease: No Blood Disorders: No Heart Rhythm Problems: No Cancer: No Cardiovascular Problems: Yes High Cholesterol: No Chemotherapy: No Chest Pain: Yes Congestive Heart Failure: No Diabetes: Yes Patient Takes Glucophage: No Diminished Hearing: No Endocrine: No Gastrointestinal Disorders: Yes Genitourinary: No Headaches: Yes Hypertension: Yes Immune Disorder: No Musculoskeletal: No Neurologic: No Psychiatric: No Reproductive: No Respiratory: No Immunizations Current: Yes Radiation Therapy: No Thyroid Disease: No Ulcer: Yes (STOMACH ULCER) ?: Not Menopausal: Yes : 1 Para: 1 Miscarriage: 0 : 0 Tubal Ligation: Yes Past Surgical History Appendectomy: Yes (1955) Cholecystectomy: Yes (2002) Other Surgery: Yes (BREAST REDUCTION) Social History Alcohol Use: No Tobacco Use: No Substance Use: No Allergies-Medications (Allergen,Severity, Reaction): Coded Allergies: ciprofloxacin (Verified Allergy, Severe, RASH, VOMITING, 11/29/16) Comments List of her allergies reviewed from the nursing note. Reported Meds & Prescriptions Reported Meds & Active Scripts Active Walker Rolling/GetGo (Device) 1 Mis Mis Ea .ROUTE DIRECTED Macrobid (Nitrofurantoin Monoh/Nitrofur Macro) 100 Mg Cap 100 Mg PO BID 10 Days Reglan (Metoclopramide HCl) 10 Mg Tab 10 Mg PO QID Tramadol (Tramadol HCl) 50 Mg Tab 50 Mg PO Q8H PRN Carafate Liq (Sucralfate) 1 Gm/10 Ml Susp 1 Gm PO TID on empty stomach Reported Ecotrin Low Strength (Aspirin) 81 Mg Tabdr 81 Mg PO DAILY Meclizine (Meclizine HCl) 25 Mg Tab 25 Mg PO TID PRN Amitriptyline (Amitriptyline HCl) 10 Mg Tab 10-20 Mg PO HS Aricept (Donepezil HCl) 5 Mg Tablet 5 Mg PO DAILY Lisinopril-Hctz 20-25 Mg Tab 1 Tab PO DAILY Omeprazole 40 Mg Cap 40 Mg PO DAILY Bethanechol 25 Mg Tab 12.5 Mg PO QID Take 1hr before meals and at beditime Glipizide ER (Glipizide) 10 Mg Malgorzata 10 Mg PO DAILY Take with breakfast or first main meal of the day Lipitor (Atorvastatin Calcium) 40 Mg Tab 40 Mg PO HS Narrative Medication List of her home medications reviewed from the nursing note. Review of Systems Except as stated in HPI: all other systems reviewed are Neg Physical Exam Narrative GENERAL: Awake, alert, elderly, no obvious distress SKIN: Focused skin assessment warm/dry. HEAD: Atraumatic. Normocephalic. EYES: Pupils equal and round. No scleral icterus. No injection or drainage. ENT: No nasal bleeding or discharge. Mucous membranes pink and moist. NECK: Trachea midline. No JVD. CARDIOVASCULAR: Regular rate and rhythm. No murmur appreciated. RESPIRATORY: No accessory muscle use. Clear to auscultation. Breath sounds equal bilaterally. GASTROINTESTINAL: Abdomen soft, non-tender, nondistended. Hepatic and splenic margins not palpable. MUSCULOSKELETAL: No obvious deformities. No clubbing. No cyanosis. No edema. NEUROLOGICAL: Awake and alert. No obvious cranial nerve deficits. Motor grossly within normal limits. Normal speech. PSYCHIATRIC: Appropriate mood and affect; insight and judgment normal. Data Data Last Documented VS Orders Orders Complete Blood Count With Diff (11/29/16 13:10) Comprehensive Metabolic Panel (11/29/16 13:10) Lipase (11/29/16 13:10) Urinalysis - C+S If Indicated (11/29/16 13:10) Iv Access Insert/Monitor (11/29/16 13:10) Ecg Monitoring (11/29/16 13:10) Oximetry (11/29/16 13:10) Sodium Chlor 0.9% 1000 Ml Inj (Ns 1000 M (11/29/16 13:10) Sodium Chloride 0.9% Flush (Ns Flush) (11/29/16 13:15) Ondansetron Inj (Zofran Inj) (11/29/16 14:00) Urine Culture (11/29/16 13:30) Vancomycin Inj (Vancomycin Inj) (11/29/16 14:15) Piperacil-Tazo 4.5 Gm Premix (Zosyn 4.5 (11/29/16 14:15) Labs Laboratory Tests Test 11/29/16 13:14 11/29/16 13:30 White Blood Count 5.5 TH/MM3 Red Blood Count 3.98 MIL/MM3 Hemoglobin 11.9 GM/DL Hematocrit 36.8 % Mean Corpuscular Volume 92.4 FL Mean Corpuscular Hemoglobin 30.0 PG Mean Corpuscular Hemoglobin Concent 32.4 % Red Cell Distribution Width 14.5 % Platelet Count 234 TH/MM3 Mean Platelet Volume 9.6 FL Neutrophils (%) (Auto) 65.7 % Lymphocytes (%) (Auto) 27.3 % Monocytes (%) (Auto) 5.9 % Eosinophils (%) (Auto) 0.6 % Basophils (%) (Auto) 0.5 % Neutrophils # (Auto) 3.6 TH/MM3 Lymphocytes # (Auto) 1.5 TH/MM3 Monocytes # (Auto) 0.3 TH/MM3 Eosinophils # (Auto) 0.0 TH/MM3 Basophils # (Auto) 0.0 TH/MM3 CBC Comment DIFF FINAL Differential Comment Blood Urea Nitrogen 7 MG/DL Creatinine 0.49 MG/DL Random Glucose 126 MG/DL Total Protein 7.6 GM/DL Albumin 2.8 GM/DL Calcium Level 8.9 MG/DL Alkaline Phosphatase 74 U/L Aspartate Amino Transf (AST/SGOT) 44 U/L Alanine Aminotransferase (ALT/SGPT) 33 U/L Total Bilirubin 0.5 MG/DL Sodium Level 141 MEQ/L Potassium Level 3.8 MEQ/L Chloride Level 106 MEQ/L Carbon Dioxide Level 24.2 MEQ/L Anion Gap 11 MEQ/L Estimat Glomerular Filtration Rate 122 ML/MIN Lipase 161 U/L Urine Color YELLOW Urine Turbidity HAZY Urine pH 7.5 Urine Specific [place] 1.012 Urine Protein TRACE mg/dL Urine Glucose (UA) NEG mg/dL Urine Ketones 10 mg/dL Urine Occult Blood NEG Urine Nitrite NEG Urine Bilirubin NEG Urine Urobilinogen LESS THAN 2.0 MG/DL Urine Leukocyte Esterase LARGE Urine RBC 4 /hpf Urine WBC 71 /hpf Urine Bacteria RARE /hpf Urine Mucus FEW /lpf Microscopic Urinalysis Comment CULTURE INDICATED MDM Medical Decision Making Medical Screen Exam Complete: Yes Emergency Medical Condition: Yes Medical Record Reviewed: Yes Differential Diagnosis Electrolyte abnormality, dehydration, UTI Narrative Course 2:54 PM blood test results of back and within acceptable limits. Patient does have a UTI as per the UA. Given her one dose of Macrobid and 1 L of IV fluid bolus. Patient wanted a walker. ED case management was involved since patient wanted home health care. Please refer to her notes. As per ED case management patient does have home health care and they were contacted. The came to see the patient. Procedures EKG Prior to Arrival: No Diagnosis Primary Impression: UTI (urinary tract infection) Qualified Codes: N39.0 - Urinary tract infection, site not specified Referrals: Primary Care Physician 2 days Additional Instructions: Please return to the ER if the condition worsens or any other new concerns. Otherwise follow-up with your primary care in couple days. Take the medication as per the prescription direction. Med/Other Pt SpecificInfo: Prescription(s) given Scripts Walker Rolling/GetGo (Walker Rolling/GetGo) 1 Mis Mis EA .ROUTE DIRECTED, #1 Prov: Jenna Britt MD 11/29/16 Nitrofurantoin Monohydrate Macrocrystals (Macrobid) 100 Mg Cap 100 MG PO BID for Infection for 10 Days, #20 CAP 0 Refills Prov: Jenna Britt MD 11/29/16 Disposition: DISCHARGE HOME Condition: Stable Jenna Britt MD Nov 29, 2016 14:56
[2016-11-29] MEDS ORDERED: GETGO ROLLING W1 MI1 (14:58)
[2016-11-29] MEDS ORDERED: NITROFURANTOIN MONOHYD MACROCR 100 MG CAP PO ONE (15:00)
== END 2016-11-29 17:08 | disposition home or self-care (01) ==
LOC: NEPE 10:10 → NEDA 14:16 → UNDOADMIN 14:16
DX: N39.0 Urinary tract infection, site not specified (principal); B95.2 Enterococcus as the cause of diseases classified elsewhere; I10 Essential (primary) hypertension
CPT/HCPCS: 80053; 81001; 83690; 85025; 87077; 87086; 87186; 96361; 96374; 96375; 99284; J2405; J2543; J3370; J7030; J7050

== ENCOUNTER 2017-01-06 13:05 | Inpatient (IN) | payer OTHER, MEDICARE ==
[2017-01-06] VITALS (13 sets, daily range): BP systolic 120–162; BP diastolic 54–87; PULSE 117–158; RESP 18–26; TEMP 97.6–98.9; O2SAT 96–100
[~2017-01-06] VITALS: Ht 149.9 cm; Wt 40.5 kg
[~2017-01-06 13:05] MED LIST changes: -ARIC5TAB2 PO; +ARIC5TAB6 PO; +GETGO ROLLING W1 MI1; +MACR100C2 PO
--- NOTE | 2017-01-06 13:43 | PD ---
HPI Chief Complaint: Chest Pain Time Seen by Provider: 13:40 Travel History International Travel<30 days: No Contact w/Intl Traveler<30days: No Traveled to known affect area: No History of Present Illness HPI 81-year-old [place]ic female presents the emergency department with anxiety, shortness of breath, tachycardia, and chest discomfort. Patient is brought in by EMS with a reported rate of 180 beats per minute. EKG performed here shows a sinus tachycardia of 121. Patient is a poor historian. Patient is a diabetic. Patient was recently seen by her primary care physician with reports of tachycardia and given a liter of fluid according to her daughter. She was sent home. Patient was last seen here the end of November with a urinary tract infection, and given antibiotics which causes stomach upset which she stopped taking. Patient states she's felt this way for the past week. Pain is about a 5 out of 10. Patient denies lower extremity edema, calf pain, nausea or vomiting. PFSH Past Medical History Autoimmune Disease: No Blood Disorders: No Heart Rhythm Problems: No Cancer: No Cardiovascular Problems: Yes High Cholesterol: No Chemotherapy: No Chest Pain: Yes Congestive Heart Failure: No Diabetes: Yes Diminished Hearing: No Endocrine: No Gastrointestinal Disorders: Yes Genitourinary: No Headaches: Yes Hypertension: Yes Immune Disorder: No Musculoskeletal: No Neurologic: No Psychiatric: No Reproductive: No Respiratory: No Immunizations Current: Yes Radiation Therapy: No Thyroid Disease: No Ulcer: Yes (STOMACH ULCER) ?: Not Menopausal: Yes : 1 Para: 1 Miscarriage: 0 : 0 Tubal Ligation: Yes Past Surgical History Appendectomy: Yes (1955) Cholecystectomy: Yes (2002) Other Surgery: Yes (BREAST REDUCTION) Social History Alcohol Use: No Tobacco Use: No Substance Use: No Allergies-Medications (Allergen,Severity, Reaction): Coded Allergies: ciprofloxacin (Verified Allergy, Severe, RASH, VOMITING, 11/29/16) Reported Meds & Prescriptions Reported Meds & Active Scripts Active Walker Rolling/GetGo (Device) 1 Mis Mis Ea .ROUTE DIRECTED Macrobid (Nitrofurantoin Monoh/Nitrofur Macro) 100 Mg Cap 100 Mg PO BID 10 Days Reglan (Metoclopramide HCl) 10 Mg Tab 10 Mg PO QID Tramadol (Tramadol HCl) 50 Mg Tab 50 Mg PO Q8H PRN Carafate Liq (Sucralfate) 1 Gm/10 Ml Susp 1 Gm PO TID on empty stomach Reported Ecotrin Low Strength (Aspirin) 81 Mg Tabdr 81 Mg PO DAILY Meclizine (Meclizine HCl) 25 Mg Tab 25 Mg PO TID PRN Amitriptyline (Amitriptyline HCl) 10 Mg Tab 10-20 Mg PO HS Aricept (Donepezil HCl) 5 Mg Tablet 5 Mg PO DAILY Lisinopril-Hctz 20-25 Mg Tab 1 Tab PO DAILY Omeprazole 40 Mg Cap 40 Mg PO DAILY Bethanechol 25 Mg Tab 12.5 Mg PO QID Take 1hr before meals and at beditime Glipizide ER (Glipizide) 10 Mg Malgorzata 10 Mg PO DAILY Take with breakfast or first main meal of the day Lipitor (Atorvastatin Calcium) 40 Mg Tab 40 Mg PO HS Physical Exam Narrative GENERAL: This is a very petite somewhat cachectic woman in mild to moderate distress SKIN: Warm and dry. Normal color. Poor turgor with tenting. HEAD: Atraumatic. Normocephalic. EYES: Pupils equal and round. No scleral icterus. No injection or drainage. ENT: No nasal bleeding or discharge. Mucous membranes pink and moist. Pharynx is clear. Airway is patent. NECK: Trachea midline. No JVD. Supple nontender. CARDIOVASCULAR: Tachycardic rate and normal rhythm. RESPIRATORY: No accessory muscle use. Clear to auscultation. Breath sounds equal bilaterally. GASTROINTESTINAL: Abdomen soft, non-tender, nondistended. Hepatic and splenic margins not palpable. MUSCULOSKELETAL: Extremities without clubbing, cyanosis, or edema. No obvious deformities. NEUROLOGICAL: Awake and alert. No obvious cranial nerve deficits. Motor grossly within normal limits. Five out of 5 muscle strength in the arms and legs. Normal speech. PSYCHIATRIC: Appropriate mood and affect; insight and judgment normal. Data Data Last Documented VS Vital Signs Date Time Temp Pulse Resp B/P (MAP) Pulse Ox O2 Delivery O2 Flow Rate FiO2 01/06/17 16:08 117 18 160/68 (98) 100 Room Air 01/06/17 13:48 2.00 01/06/17 13:37 98.3 Orders Orders Electrocardiogram (01/06/17 13:37) B-Type Natriuretic Peptide (01/06/17 13:37) Ckmb (Isoenzyme) Profile (01/06/17 13:37) Complete Blood Count With Diff (01/06/17 13:37) Comprehensive Metabolic Panel (01/06/17 13:37) Magnesium (Mg) (01/06/17 13:37) Prothrombin Time / Inr (Pt) (01/06/17 13:37) Act Partial Throm Time (Ptt) (01/06/17 13:37) Troponin I (01/06/17 13:37) Chest, Single Ap (01/06/17 13:37) Ecg Monitoring (01/06/17 13:37) Bilateral Bp Monitoring (01/06/17 13:37) Iv Access Insert/Monitor (01/06/17 13:37) Oximetry (01/06/17 13:37) Oxygen Administration (01/06/17 13:37) Aspirin Chew (Aspirin Chew) (01/06/17 13:45) Sodium Chloride 0.9% Flush (Ns Flush) (01/06/17 13:45) Sodium Chlorid 0.9% 500 Ml Inj (Ns 500 M (01/06/17 13:45) Ct Pulmonary Angiogram (01/06/17 13:37) Urinalysis - C+S If Indicated (01/06/17 13:37) Cath For Specimen (01/06/17 13:37) Ct Brain W/O Iv Contrast(Rout) (01/06/17 14:10) Sodium Chlorid 0.9% 500 Ml Inj (Ns 500 M (01/06/17 14:45) Potassium Chlor 20 Meq Premix (Kcl 20 Me (01/06/17 14:45) Urine Culture (01/06/17 14:31) Ceftriaxone Inj (Rocephin Inj) (01/06/17 15:30) Admit To Inpatient (01/06/17 ) Vital Signs (Adult) Q4H (01/06/17 15:35) Activity Oob With Assistance (01/06/17 15:35) Community Outreach Advocate / Telemetry .CONTINUOUS (01/06/17 15:35) Diet Heart Healthy (01/06/17 Dinner) Sodium Chloride 0.9% Flush (Ns Flush) (01/06/17 15:45) Sodium Chloride 0.9% Flush (Ns Flush) (01/06/17 21:00) Basic Metabolic Panel (Bmp) (01/07/17 06:00) Complete Blood Count With Diff (01/07/17 06:00) Creatine Kinase (Cpk) (01/06/17 20:00) Creatine Kinase (Cpk) (01/07/17 02:00) Troponin I (01/06/17 20:00) Troponin I (01/07/17 02:00) Electrocardiogram (01/06/17 20:00) Electrocardiogram (01/07/17 02:00) Case Management Consult (01/06/17 15:35) Naloxone Inj (Narcan Inj) (01/06/17 15:45) Inpatient Certification (01/06/17 ) Basic Metabolic Panel (Bmp) (01/06/17 15:41) Metoprolol Tartrate Inj (Lopressor Inj) (01/06/17 15:45) Iohexol 350 Inj (Omnipaque 350 Inj) (01/06/17 15:45) Thyroid Stimulating Hormone (01/06/17 13:50) Labs Laboratory Tests Test 01/06/17 12:50 01/06/17 13:50 01/06/17 14:31 01/06/17 16:05 B-Type Natriuretic Peptide 224 PG/ML White Blood Count 5.9 TH/MM3 Red Blood Count 4.09 MIL/MM3 Hemoglobin 12.7 GM/DL Hematocrit 39.0 % Mean Corpuscular Volume 95.4 FL Mean Corpuscular Hemoglobin 31.0 PG Mean Corpuscular Hemoglobin Concent 32.6 % Red Cell Distribution Width 15.9 % Platelet Count 246 TH/MM3 Mean Platelet Volume 8.6 FL Neutrophils (%) (Auto) 47.0 % Lymphocytes (%) (Auto) 36.5 % Monocytes (%) (Auto) 15.9 % Eosinophils (%) (Auto) 0.1 % Basophils (%) (Auto) 0.5 % Neutrophils # (Auto) 2.8 TH/MM3 Lymphocytes # (Auto) 2.1 TH/MM3 Monocytes # (Auto) 0.9 TH/MM3 Eosinophils # (Auto) 0.0 TH/MM3 Basophils # (Auto) 0.0 TH/MM3 CBC Comment AUTO DIFF Differential Total Cells Counted 100 Neutrophils % (Manual) 55 % Band Neutrophils % 2 % Lymphocytes % 31 % Monocytes % 11 % Eosinophils % 1 % Neutrophils # (Manual) 3.4 TH/MM3 Nucleated Red Blood Cells 2 /100 WBC Differential Comment FINAL DIFF MANUAL Platelet Estimate NORMAL Platelet Morphology Comment NORMAL Red Cell Morphology Comment NORMAL Prothrombin Time 12.9 SEC Prothromb Time International Ratio 1.2 RATIO Activated Partial Thromboplast Time 22.2 SEC Blood Urea Nitrogen 25 MG/DL Creatinine 0.65 MG/DL Random Glucose 114 MG/DL Total Protein 8.1 GM/DL Albumin 2.6 GM/DL Calcium Level 9.6 MG/DL Magnesium Level 1.8 MG/DL Alkaline Phosphatase 68 U/L Aspartate Amino Transf (AST/SGOT) 62 U/L Alanine Aminotransferase (ALT/SGPT) 42 U/L Total Bilirubin 0.6 MG/DL Sodium Level 160 MEQ/L Potassium Level 2.9 MEQ/L Chloride Level 121 MEQ/L Carbon Dioxide Level 24.6 MEQ/L Anion Gap 14 MEQ/L Estimat Glomerular Filtration Rate 87 ML/MIN Total Creatine Kinase 50 U/L Troponin I 0.25 NG/ML Urine Color YELLOW Urine Turbidity HAZY Urine pH 6.0 Urine Specific [place] 1.019 Urine Protein 30 mg/dL Urine Glucose (UA) NEG mg/dL Urine Ketones 80 mg/dL Urine Occult Blood NEG Urine Nitrite NEG Urine Bilirubin NEG Urine Urobilinogen LESS THAN 2.0 MG/DL Urine Leukocyte Esterase LARGE Urine WBC 106 /hpf Urine Bacteria RARE /hpf Microscopic Urinalysis Comment CULTURE INDICATED MDM Medical Decision Making Medical Screen Exam Complete: Yes Emergency Medical Condition: Yes Medical Record Reviewed: Yes Differential Diagnosis Sinus tachycardia. Dehydration. Electrolyte imbalance. Arrhythmia. Hyperthyroid. Cardiac syndrome. Narrative Course Patient is stable at time of exam. EKG shows sinus tachycardia with a rate of [address] changes. This was reviewed with Dr. Felix. Labs ordered including CBC, BMP, CMP, TSH, urinalysis, cardiac enzymes. Patient is given 500 mL of normal saline bolus as well as aspirin [address] of the brain, CTA with IV contrast, and chest x-ray is ordered. CBC is unremarkable. CMP is remarkable for sodium of 160, potassium is 2.9, is 121, BUN is 25, creatinine is 0.65. GFR is 87. Glucose is 114. Troponin is elevated at 0.25, BNP is 224. Albumin is 2.6. Coagulation studies shows a PT of 12.9, INR of 1.2, APTT is 22.2 Chest x-ray is unremarkable for acute process per radiologist. Urinalysis is suggestive of urinary tract infection. Urine culture is pending. Patient is treated with Rocephin [address] shows: CONCLUSION: Increasing ventricular prominence. Nonspecific but can be seen with normal pressure hydrocephalus. CTA shows no sign of PE Patient is given 2.5 mg Lopressor IV. Patient is discussed with Dr. Felix feels patient warrants admission. Patient discussed with Dr. Hutton, who accepts patient for admission. Diagnosis Primary Impression: Hypernatremia Additional Impressions: Hypokalemia Elevated troponin Tachycardia Urinary tract infection Qualified Codes: N30.01 - Acute cystitis with hematuria Admitting Information Admitting Physician Requests: Admit Condition: Stable Glenn Benitez Jan 06, 2017 13:43
[2017-01-06] MEDS ORDERED: ASPIRIN 81 MG CHEW TAB PO ONE (13:45)
[2017-01-06] MEDS ORDERED: SODIUM CHLORID 0.9% 500 ML INJ 500 ML IV ONE ×2 (13:45→14:45)
[2017-01-06] MEDS ORDERED: SODIUM CHLORIDE 0.9% FLUSH 10 ML FLUSH IVF PRN (13:45)
[2017-01-06 14:09] LABS: AUTOMATED NEUTROPHIL # 2.8 TH/MM3 (1.8-7.7); BASOPHIL % 0.5 % (0.0-2.0); EOSINOPHIL % 0.1 % (0.0-4.0); LYMPH % 36.5 % (9.0-44.0); LYMPHOCYTE # 2.1 TH/MM3 (1.0-4.8); MEAN CELL VOLUME 95.4 FL (80.0-100.0); MEAN CORPUSCULAR HGB CONC 32.6 % (32.0-36.0); MONO % 15.9 % (0.0-8.0); PLATELET COUNT 246 TH/MM3 (150-450); RED BLOOD COUNT 4.09 MIL/MM3 (4.00-5.30); RED CELL DISTRIBUTION WIDTH 15.9 % (11.6-17.2); WHITE BLOOD COUNT 5.9 TH/MM3 (4.0-11.0)
[2017-01-06 14:14] LABS: HEMO FLAGS AUTO DIFF
[2017-01-06 14:18] LABS: APTT (PATIENT) 22.2 SEC (24.3-30.1); INTERNATIONAL NORMALIZED RATIO 1.2 RATIO; PROTHROMBIN TIME - PATIENT 12.9 SEC (9.8-11.6)
--- NOTE | 2017-01-06 14:32 | PD ---
Physical Exam Date Seen by Provider: Jan 06, 2017 Time Seen by Provider: 14:31 Narrative The patient is a 81-year-old female was initially evaluated by the mid-level provider, Kurt Benitez PA-C. The patient lives at home with her special at needs daughter, who has Down syndrome. The family from [place], who are in the room with her, state that the patient has declining mental capacity of last several months. The patient has difficulty with her short term and half-way memory and is unable to perform her activities of daily living. The patient states she has a history of an elevated heart rate, however, the family is unsure if this is true. The patient denies any history of pulmonary embolism or DVT. She denies any known history of thyroid disorder. She denies any fever , chills, or sweats. Family member states the patient had IV fluids performed at the physician's office, [facility], 2 days ago and her heart rate improved. They do note the patient has poor oral intake and poor appetite. Symptoms are moderate, there are no exacerbating factors, possibly alleviated by underlying dehydration. Data Data Last Documented VS Vital Signs Date Time Temp Pulse Resp B/P (MAP) Pulse Ox O2 Delivery O2 Flow Rate FiO2 01/06/17 16:08 117 18 160/68 (98) 100 Room Air 01/06/17 13:48 2.00 01/06/17 13:37 98.3 Orders Orders Electrocardiogram (01/06/17 13:37) B-Type Natriuretic Peptide (01/06/17 13:37) Ckmb (Isoenzyme) Profile (01/06/17 13:37) Complete Blood Count With Diff (01/06/17 13:37) Comprehensive Metabolic Panel (01/06/17 13:37) Magnesium (Mg) (01/06/17 13:37) Prothrombin Time / Inr (Pt) (01/06/17 13:37) Act Partial Throm Time (Ptt) (01/06/17 13:37) Troponin I (01/06/17 13:37) Chest, Single Ap (01/06/17 13:37) Ecg Monitoring (01/06/17 13:37) Bilateral Bp Monitoring (01/06/17 13:37) Iv Access Insert/Monitor (01/06/17 13:37) Oximetry (01/06/17 13:37) Oxygen Administration (01/06/17 13:37) Aspirin Chew (Aspirin Chew) (01/06/17 13:45) Sodium Chloride 0.9% Flush (Ns Flush) (01/06/17 13:45) Sodium Chlorid 0.9% 500 Ml Inj (Ns 500 M (01/06/17 13:45) Ct Pulmonary Angiogram (01/06/17 13:37) Urinalysis - C+S If Indicated (01/06/17 13:37) Cath For Specimen (01/06/17 13:37) Ct Brain W/O Iv Contrast(Rout) (01/06/17 14:10) Sodium Chlorid 0.9% 500 Ml Inj (Ns 500 M (01/06/17 14:45) Potassium Chlor 20 Meq Premix (Kcl 20 Me (01/06/17 14:45) Urine Culture (01/06/17 14:31) Ceftriaxone Inj (Rocephin Inj) (01/06/17 15:30) Admit To Inpatient (01/06/17 ) Vital Signs (Adult) Q4H (01/06/17 15:35) Activity Oob With Assistance (01/06/17 15:35) Casting Director / Telemetry .CONTINUOUS (01/06/17 15:35) Diet Heart Healthy (01/06/17 Dinner) Sodium Chloride 0.9% Flush (Ns Flush) (01/06/17 15:45) Sodium Chloride 0.9% Flush (Ns Flush) (01/06/17 21:00) Basic Metabolic Panel (Bmp) (01/07/17 06:00) Complete Blood Count With Diff (01/07/17 06:00) Creatine Kinase (Cpk) (01/06/17 20:00) Creatine Kinase (Cpk) (01/07/17 02:00) Troponin I (01/06/17 20:00) Troponin I (01/07/17 02:00) Electrocardiogram (01/06/17 20:00) Electrocardiogram (01/07/17 02:00) Case Management Consult (01/06/17 15:35) Naloxone Inj (Narcan Inj) (01/06/17 15:45) Inpatient Certification (01/06/17 ) Basic Metabolic Panel (Bmp) (01/06/17 15:41) Metoprolol Tartrate Inj (Lopressor Inj) (01/06/17 15:45) Iohexol 350 Inj (Omnipaque 350 Inj) (01/06/17 15:45) Thyroid Stimulating Hormone (01/06/17 13:50) Admit Order (Ed Use Only) (01/06/17 16:25) Labs Laboratory Tests Test 01/06/17 12:50 01/06/17 13:50 01/06/17 14:31 01/06/17 16:05 B-Type Natriuretic Peptide 224 PG/ML White Blood Count 5.9 TH/MM3 Red Blood Count 4.09 MIL/MM3 Hemoglobin 12.7 GM/DL Hematocrit 39.0 % Mean Corpuscular Volume 95.4 FL Mean Corpuscular Hemoglobin 31.0 PG Mean Corpuscular Hemoglobin Concent 32.6 % Red Cell Distribution Width 15.9 % Platelet Count 246 TH/MM3 Mean Platelet Volume 8.6 FL Neutrophils (%) (Auto) 47.0 % Lymphocytes (%) (Auto) 36.5 % Monocytes (%) (Auto) 15.9 % Eosinophils (%) (Auto) 0.1 % Basophils (%) (Auto) 0.5 % Neutrophils # (Auto) 2.8 TH/MM3 Lymphocytes # (Auto) 2.1 TH/MM3 Monocytes # (Auto) 0.9 TH/MM3 Eosinophils # (Auto) 0.0 TH/MM3 Basophils # (Auto) 0.0 TH/MM3 CBC Comment AUTO DIFF Differential Total Cells Counted 100 Neutrophils % (Manual) 55 % Band Neutrophils % 2 % Lymphocytes % 31 % Monocytes % 11 % Eosinophils % 1 % Neutrophils # (Manual) 3.4 TH/MM3 Nucleated Red Blood Cells 2 /100 WBC Differential Comment FINAL DIFF MANUAL Platelet Estimate NORMAL Platelet Morphology Comment NORMAL Red Cell Morphology Comment NORMAL Prothrombin Time 12.9 SEC Prothromb Time International Ratio 1.2 RATIO Activated Partial Thromboplast Time 22.2 SEC Blood Urea Nitrogen 25 MG/DL Creatinine 0.65 MG/DL Random Glucose 114 MG/DL Total Protein 8.1 GM/DL Albumin 2.6 GM/DL Calcium Level 9.6 MG/DL Magnesium Level 1.8 MG/DL Alkaline Phosphatase 68 U/L Aspartate Amino Transf (AST/SGOT) 62 U/L Alanine Aminotransferase (ALT/SGPT) 42 U/L Total Bilirubin 0.6 MG/DL Sodium Level 160 MEQ/L Potassium Level 2.9 MEQ/L Chloride Level 121 MEQ/L Carbon Dioxide Level 24.6 MEQ/L Anion Gap 14 MEQ/L Estimat Glomerular Filtration Rate 87 ML/MIN Total Creatine Kinase 50 U/L Troponin I 0.25 NG/ML Urine Color YELLOW Urine Turbidity HAZY Urine pH 6.0 Urine Specific [place] 1.019 Urine Protein 30 mg/dL Urine Glucose (UA) NEG mg/dL Urine Ketones 80 mg/dL Urine Occult Blood NEG Urine Nitrite NEG Urine Bilirubin NEG Urine Urobilinogen LESS THAN 2.0 MG/DL Urine Leukocyte Esterase LARGE Urine WBC 106 /hpf Urine Bacteria RARE /hpf Microscopic Urinalysis Comment CULTURE INDICATED MDM Medical Record Reviewed: Yes Supervised Visit with LADAN: Yes Interpretation(s) EKG reveals sinus tachycardia with short HI interval. Occasional supraventricular premature complex. Nonspecific T wave changes. Last Impressions Head CT 01/06/17 1410 Signed Impressions: Service Date/Time: Friday, January 06, 2017 15:36 - CONCLUSION: Increasing ventricular prominence. Nonspecific but can be seen with normal pressure hydrocephalus. Jose Moreno MD FACR Chest X-Ray [id number] Signed Impressions: Service Date/Time: Friday, January 06, 2017 14:08 - CONCLUSION: 1. No acute cardiopulmonary disease. Abdiel Lerma MD CT Angiography [id number] Signed Impressions: Service Date/Time: Friday, January 06, 2017 15:42 - CONCLUSION: 1. No evidence of pulmonary embolism. 2. Coronary artery calcifications. Abdiel Lerma MD Laboratory Tests Test 01/06/17 12:50 01/06/17 13:50 01/06/17 14:31 01/06/17 16:05 B-Type Natriuretic Peptide 224 PG/ML White Blood Count 5.9 TH/MM3 Red Blood Count 4.09 MIL/MM3 Hemoglobin 12.7 GM/DL Hematocrit 39.0 % Mean Corpuscular Volume 95.4 FL Mean Corpuscular Hemoglobin 31.0 PG Mean Corpuscular Hemoglobin Concent 32.6 % Red Cell Distribution Width 15.9 % Platelet Count 246 TH/MM3 Mean Platelet Volume 8.6 FL Neutrophils (%) (Auto) 47.0 % Lymphocytes (%) (Auto) 36.5 % Monocytes (%) (Auto) 15.9 % Eosinophils (%) (Auto) 0.1 % Basophils (%) (Auto) 0.5 % Neutrophils # (Auto) 2.8 TH/MM3 Lymphocytes # (Auto) 2.1 TH/MM3 Monocytes # (Auto) 0.9 TH/MM3 Eosinophils # (Auto) 0.0 TH/MM3 Basophils # (Auto) 0.0 TH/MM3 CBC Comment AUTO DIFF Differential Total Cells Counted 100 Neutrophils % (Manual) 55 % Band Neutrophils % 2 % Lymphocytes % 31 % Monocytes % 11 % Eosinophils % 1 % Neutrophils # (Manual) 3.4 TH/MM3 Nucleated Red Blood Cells 2 /100 WBC Differential Comment FINAL DIFF MANUAL Platelet Estimate NORMAL Platelet Morphology Comment NORMAL Red Cell Morphology Comment NORMAL Prothrombin Time 12.9 SEC Prothromb Time International Ratio 1.2 RATIO Activated Partial Thromboplast Time 22.2 SEC Blood Urea Nitrogen 25 MG/DL Creatinine 0.65 MG/DL Random Glucose 114 MG/DL Total Protein 8.1 GM/DL Albumin 2.6 GM/DL Calcium Level 9.6 MG/DL Magnesium Level 1.8 MG/DL Alkaline Phosphatase 68 U/L Aspartate Amino Transf (AST/SGOT) 62 U/L Alanine Aminotransferase (ALT/SGPT) 42 U/L Total Bilirubin 0.6 MG/DL Sodium Level 160 MEQ/L Potassium Level 2.9 MEQ/L Chloride Level 121 MEQ/L Carbon Dioxide Level 24.6 MEQ/L Anion Gap 14 MEQ/L Estimat Glomerular Filtration Rate 87 ML/MIN Total Creatine Kinase 50 U/L Troponin I 0.25 NG/ML Urine Color YELLOW Urine Turbidity HAZY Urine pH 6.0 Urine Specific [place] 1.019 Urine Protein 30 mg/dL Urine Glucose (UA) NEG mg/dL Urine Ketones 80 mg/dL Urine Occult Blood NEG Urine Nitrite NEG Urine Bilirubin NEG Urine Urobilinogen LESS THAN 2.0 MG/DL Urine Leukocyte Esterase LARGE Urine WBC 106 /hpf Urine Bacteria RARE /hpf Microscopic Urinalysis Comment CULTURE INDICATED Differential Diagnosis Differential diagnosis includes dehydration, electrolyte abnormality, hyperthyroidism, cardiomyopathy, arrhythmia, sepsis, pulmonary embolism. Narrative Course IV was established, labs are drawn and sent, and the patient was placed on cardiac telemetry monitoring and continuous pulse oximetry monitoring. EKG was ordered and interpreted. TSH was sent to lab. CT pulmonary angiogram was ordered. The patient was initially administered 500 cc of normal saline, heart rate was still elevated, therefore, the patient received another normal saline bolus of 500 cc. The patient's sodium is elevated 160, potassium is low at 2.9 , was repaired orally. The patient did receive IV fluids. TSH is normal. CT pulmonary angiogram is negative. CT the brain does reveal increasing prominence of the ventricles, normal pressure hydrocephalus is a consideration. The patient will require admission, IV fluids, evaluation of her tachycardia and dehydration. The patient may need to see case management for placement with her special needs daughter who has Down syndrome. The on-call medical service was paged for admission. The patient was also noted to have a UTI, this was treated with Rocephin. Physician Communication Physician Communication Discussed the patient with Dr. Hutton who agrees with admission. Diagnosis Primary Impression: Hypernatremia Additional Impressions: Elevated troponin Urinary tract infection Qualified Codes: N30.01 - Acute cystitis with hematuria Tachycardia Admitting Information Admitting Physician Requests: Admit Condition: Stable Hakan Felix MD Jan 06, 2017 14:32
[2017-01-06 14:38] LABS: ALKALINE PHOSPHATASE 68 U/L (45-117); ALT (GPT) 42 U/L (10-53); ANION GAP 14 MEQ/L (5-15); AST (GOT) 62 U/L (15-37); BICARBONATE 24.6 MEQ/L (21.0-32.0); BLOOD UREA NITROGEN 25 MG/DL (7-18); CHLORIDE 121 MEQ/L (98-107); GLOMERULAR FILTRATION RATE 87 ML/MIN (>89); MAGNESIUM 1.8 MG/DL (1.5-2.5); TOTAL BILIRUBIN ADULT 0.6 MG/DL (0.2-1.0)
[2017-01-06 14:39] LABS: CREATINE KINASE 50 U/L (26-192)
[2017-01-06 14:42] LABS: POTASSIUM 2.9 MEQ/L (3.5-5.1); SODIUM (NA) 160 MEQ/L (136-145)
[2017-01-06] MEDS: POTASSIUM CHLOR 20 MEQ PREMIX 100 ML IV SCH ×2 (14:45→16:45)
[2017-01-06 14:48] LABS: BANDS 2 % (0-6); CORRECTED NUCLEATED RBC 2 /100 WBC (0-0); EOSINOPHILS 1 % (0-4); NEUTROPHIL # MANUAL DIFF 3.4 TH/MM3 (1.8-7.7); PLATELET ESTIMATE SMEAR NORMAL (NORMAL); PLATELET MORPHOLOGY NORMAL (NORMAL); POLYS (SEG NEUTROPHILS) 55 % (16-70); SCAN/DIFF FINAL DIFF MANUAL; WBC DIFF SAMPLE 100
--- NOTE | 2017-01-06 14:49 | RADRPT ---
EXAM DATE/TIME: 01/06/2017 14:08 [facility] COMPARISON: CHEST SINGLE AP, October 11, 2016, 10:47. INDICATIONS : Short of breath. MEDICAL HISTORY : None. SURGICAL HISTORY : None. ENCOUNTER: Initial ACUITY: 1 day PAIN SCORE: 0/10 LOCATION: Bilateral chest FINDINGS: The heart is top normal in size. The pulmonary vascular pattern is normal. The lungs are clear. CONCLUSION: 1. No acute cardiopulmonary disease. Abdiel Lerma MD on January 06, 2017 at 14:41 Board Certified Radiologist. This report was verified electronically.
[2017-01-06 15:15] LABS: BACTERIA, URINE RARE /hpf; BLOOD, URINE NEG (NEG); COMMENT (UR) CULTURE INDICATED; CULTURE IF INDICATED CULTURE INDICATED; GLUCOSE,URINE NEG (NEG); KETONE, URINE 80 mg/dL (NEG); NITRITE,URINE NEG (NEG); URINE COLOR YELLOW (YELLW/STRAW)
[2017-01-06] MEDS ORDERED: cefTRIAXone INJ 1,000 MG in SODIUM CHLORIDE 0.9% INJ 100 ML IV ONE (15:30)
[2017-01-06] MEDS ORDERED: METOPROLOL TARTRATE 5 MG/5 ML VIAL IV PUSH ONE (15:45)
[2017-01-06] MEDS ORDERED: NALOXONE HCL 0.4 MG/ML AMP IV PUSH PRN (15:45)
[2017-01-06] MEDS ORDERED: IOHEXOL 350 MG/ML 10 ML VIAL (for RAD DIAG) IVCONTRAST ONE (15:45)
[2017-01-06] MEDS ORDERED: SODIUM CHLORIDE 0.9% FLUSH 10 ML FLUSH IV FLUSH PRN (15:45)
--- NOTE | 2017-01-06 15:53 | RADRPT ---
EXAM DATE/TIME: 01/06/2017 15:36 [facility] COMPARISON: CT BRAIN W/O CONTRAST, October 11, 2016, 12:54. INDICATIONS : Chest pain.Dizziness. RADIATION DOSE: 56.77 CTDIvol (mGy) MEDICAL HISTORY : Cardiovascular disease. Hypertension. Diabetes SURGICAL HISTORY : Appendectomy. Cholecystectomy.Tubal ligation. ENCOUNTER: Initial ACUITY: 1 day PAIN SCALE: 0/10 LOCATION: cranial TECHNIQUE: Multiple contiguous axial images were obtained of the head. Using automated exposure control and adj ustment of the mA and/or kV according to patient size, radiation dose was kept as low as reasonably a chievable to obtain optimal diagnostic quality images. DICOM format image data is available electro nically for review and comparison. FINDINGS: CEREBRUM: There is mild ventricular atrophy has progressed from 10/11/16. There is no parenchymal hemorrhage. N o mass lesions. POSTERIOR FOSSA: The cerebellum and brainstem are intact. The 4th ventricle is midline. The cerebellopontine angle i s unremarkable. EXTRACRANIAL: The visualized portion of the orbits is intact. SKULL: The calvaria is intact. No evidence of skull fracture. CONCLUSION: Increasing ventricular prominence. Nonspecific but can be seen with normal pressure hydrocephalus. Jose Moreno MD FACR on January 06, 2017 at 15:50 Board Certified Radiologist. This report was verified electronically.
--- NOTE | 2017-01-06 16:09 | RADRPT ---
EXAM DATE/TIME: 01/06/2017 15:42 [facility] COMPARISON: No previous studies available for comparison. INDICATIONS : Chest pain, dizziness. IV CONTRAST: 50 cc Omnipaque 350 (iohexol) IV RADIATION DOSE: 4.41 CTDIvol (mGy) MEDICAL HISTORY : Cardiovascular disease. Hypertension. SURGICAL HISTORY : Appendectomy. Cholecystectomy.Tubal ligation. ENCOUNTER: Initial ACUITY: 1 day PAIN SCALE: 7/10 LOCATION: chest TECHNIQUE: Volumetric scanning of the chest was performed using a pulmonary embolism protocol MIP images were re constructed. Using automated exposure control and adjustment of the mA and/or kV according to patien t size, radiation dose was kept as low as reasonably achievable to obtain optimal diagnostic quality images. DICOM format image data is available electronically for review and comparison. Follow-up recommendations for detected pulmonary nodules are based at a minimum on nodule size and pa tient risk factors according to Fleischner Society Guidelines. FINDINGS: PULMONARY ARTERIES: No filling defects are seen in the pulmonary arteries through the segmental level. LUNGS: There is no consolidation or pneumothorax . No concerning pulmonary nodule is visualized. PLEURAE: There is no pleural thickening or pleural effusion. MEDIASTINUM: There is good visualization of the great vessels of the middle mediastinum. No evidence of mediastin al or hilar adenopathy/mass. Coronary artery calcifications are noted. MUSCULOSKELETAL: Within normal limits for patient age. MISCELLANEOUS: The visualized upper abdominal organs demonstrate no acute abnormality. CONCLUSION: 1. No evidence of pulmonary embolism. 2. Coronary artery calcifications. Abdiel Lerma MD on January 06, 2017 at 16:04 Board Certified Radiologist. This report was verified electronically.
--- NOTE | 2017-01-06 16:42 | HHI.HP ---
[facility] Unknown Admission Diagnosis Hypernatremia/Hypokalemia/Tachycardia Diagnoses: Travel History International Travel<30 Days: No Contact w/Intl Traveler <30 Da: No Traveled to Known Affected Are: No History of Present Illness History patient, ER physician communication, and review of medical records. Patient is extremely poor historian. She is noted to be shaking bilateral upper extremities but more on the right side at the time of my exam. She stated that she has these shakings for a long time. Her mood is labile and at times she would give me history that she does have diabetes but at other times she thinks that her family members are around her and that I'm not allowing her to see them. As per ER communication, patient has family members in the ER who gave her some more history. According to them, patient lives with her daughter who has Down's syndrome and takes care of the daughter. The daughter also has a boarder machine who usually cooks for both the mother and the daughter. We believe the patient has not been doing well for past several months. They think the patient was diagnosed with dementia. They also reported to ER physician that patient has been shaking like this for past several months. Patient was recently at her PCP office about 2 weeks ago for dehydration and was given IV fluids. She was diagnosed with UTI in November as well. She was given IV fluids because of elevated heart rate at the doctor's office. Upon EMS arrival today, patient was also noted to be tachycardic although sinus , with heart rate in the 180s per records. EKGs done in ER revealed heart rate of 150. Review of Systems ROS Limitations: Combative, Poor Historian Past Family Social History Past Medical History HTN DM Moderate tricuspid regurgitation Mild mitral regurgitation History of H. pylori gastritis Past Surgical History ERCP with sphincterotomy in October 2016 Allergies: Coded Allergies: ciprofloxacin (Verified Allergy, Severe, RASH, VOMITING, 11/29/16) Family History pt is not able to give me Social History denies smoking/ etoh abuse/ drug abuse Physical Exam Vital Signs Vital Signs Date Time Temp Pulse Resp B/P (MAP) Pulse Ox O2 Delivery O2 Flow Rate FiO2 01/06/17 16:08 117 18 160/68 (98) 100 Room Air 01/06/17 16:06 145 18 150/83 (105) 100 Room Air 01/06/17 15:37 145 18 142/87 (105) 98 Room Air 01/06/17 14:55 147 18 147/82 (103) 99 Room Air 01/06/17 13:48 148 18 138/73 (94) 100 Nasal Cannula 2.00 01/06/17 13:47 99 Nasal Cannula 2.00 01/06/17 13:47 18 99 Nasal Cannula 2.00 01/06/17 13:41 149 138/73 (94) 140/82 (101) 01/06/17 13:39 151 26 99 Room Air 01/06/17 13:37 98.3 149 26 138/73 (94) 99 Nasal Cannula 2.00 01/06/17 13:08 98.9 158 18 120/54 (76) 96 Physical Exam GENERAL: This is ultimately lady, shaking all over, cold clammy, was confused during conversation. SKIN: No rashes, ecchymoses or lesions. Cool and dry. HEAD: Atraumatic. Normocephalic. No temporal or scalp tenderness. EYES: No scleral icterus. No injection or drainage. ENT: Nose without bleeding, purulent drainage or septal hematoma. Airway patent. NECK: Trachea midline. No JVD CARDIOVASCULAR: Regular rate and rhythm without murmurs, gallops, or rubs. RESPIRATORY: Clear to auscultation. Breath sounds equal bilaterally. No wheezes , rales, or rhonchi. GASTROINTESTINAL: Abdomen soft, non-tender, nondistended. No guarding. MUSCULOSKELETAL: Extremities without clubbing, cyanosis, or edema. No calf tenderness. NEUROLOGICAL: Awake,Motor and sensory grossly within normal limits. confused Normal speech. Laboratory Laboratory Tests Test 01/06/17 12:50 01/06/17 13:50 01/06/17 14:31 01/06/17 16:05 B-Type Natriuretic Peptide 224 White Blood Count 5.9 Red Blood Count 4.09 Hemoglobin 12.7 Hematocrit 39.0 Mean Corpuscular Volume 95.4 Mean Corpuscular Hemoglobin 31.0 Mean Corpuscular Hemoglobin Concent 32.6 Red Cell Distribution Width 15.9 Platelet Count 246 Mean Platelet Volume 8.6 Neutrophils (%) (Auto) 47.0 Lymphocytes (%) (Auto) 36.5 Monocytes (%) (Auto) 15.9 Eosinophils (%) (Auto) 0.1 Basophils (%) (Auto) 0.5 Neutrophils # (Auto) 2.8 Lymphocytes # (Auto) 2.1 Monocytes # (Auto) 0.9 Eosinophils # (Auto) 0.0 Basophils # (Auto) 0.0 CBC Comment AUTO DIFF Differential Total Cells Counted 100 Neutrophils % (Manual) 55 Band Neutrophils % 2 Lymphocytes % 31 Monocytes % 11 Eosinophils % 1 Neutrophils # (Manual) 3.4 Nucleated Red Blood Cells 2 Differential Comment FINAL DIFF MANUAL Platelet Estimate NORMAL Platelet Morphology Comment NORMAL Red Cell Morphology Comment NORMAL Prothrombin Time 12.9 Prothromb Time International Ratio 1.2 Activated Partial Thromboplast Time 22.2 Blood Urea Nitrogen 25 Creatinine 0.65 Random Glucose 114 Total Protein 8.1 Albumin 2.6 Calcium Level 9.6 Magnesium Level 1.8 Alkaline Phosphatase 68 Aspartate Amino Transf (AST/SGOT) 62 Alanine Aminotransferase (ALT/SGPT) 42 Total Bilirubin 0.6 Sodium Level 160 Potassium Level 2.9 Chloride Level 121 Carbon Dioxide Level 24.6 Anion Gap 14 Estimat Glomerular Filtration Rate 87 Total Creatine Kinase 50 Troponin I 0.25 Urine Color YELLOW Urine Turbidity HAZY Urine pH 6.0 Urine Specific [place] 1.019 Urine Protein 30 Urine Glucose (UA) NEG Urine Ketones 80 Urine Occult Blood NEG Urine Nitrite NEG Urine Bilirubin NEG Urine Urobilinogen LESS THAN 2.0 Urine Leukocyte Esterase LARGE Urine WBC 106 Urine Bacteria RARE Microscopic Urinalysis Comment CULTURE INDICATED Date/Time Source Procedure Growth Status 01/06/17 14:31 Urine Clean Catch Urine Culture Pending Received Result Diagram: 01/06/17 1350 01/06/17 1350 Imaging Last [address] 01/06/17 1410 Signed Impressions: Service Date/Time: Friday, January 06, 2017 15:36 - CONCLUSION: Increasing ventricular prominence. Nonspecific but can be seen with normal pressure hydrocephalus. Jose Moreno MD FACR Chest X-Ray [id number]/06/171336 Signed Impressions: Service Date/Time: Friday, January 06, 2017 14:08 - CONCLUSION: 1. No acute cardiopulmonary disease. Abdiel Lerma MD CT Angiography [id number]/06/[id number] Signed Impressions: Service Date/Time: Friday, January 06, 2017 15:42 - CONCLUSION: 1. No evidence of pulmonary embolism. 2. Coronary artery calcifications. Abdiel Lerma MD Caprini VTE Risk Assessment Caprini VTE Risk Assessment: Mod/High Risk (score >= 2) Caprini Risk Assessment Model Point Value = 1 Point Value = 2 Point Value = 3 Point Value = 5 Age 41-60 Minor surgery BMI > 25 kg/m2 Swollen legs Varicose veins or History of unexplained or recurrent spontaneous Oral contraceptives or hormone replacement Sepsis (< 1 month) Serious lung disease, including pneumonia (< 1 month) Abnormal pulmonary function Acute myocardial infarction Congestive heart failure (< 1 month) History of inflammatory bowel disease Medical patient at bed rest Age 61-74 Arthroscopic surgery Major open surgery (> 45 min) Laparoscopic surgery (> 45 min) Malignancy Confined to bed (> 72 hours) Immobilizing plaster cast Central venous access Age >= 75 History of VTE Family history of VTE Factor V Leiden Prothrombin [id number] Lupus anticoagulant Anticardiolipin antibodies Elevated serum homocysteine Heparin-induced thrombocytopenia Other congenital or acquired thrombophilia Stroke (< 1 month) Elective arthroplasty Hip, pelvis, or leg fracture Acute spinal cord injury (< 1 month) Prophylaxis Regimen Total Risk Factor Score Risk Level Prophylaxis Regimen 0-1 Low Early ambulation 2 Moderate Order ONE of the following: *Sequential Compression Device (SCD) *Heparin 5000 units SQ BID 3-4 Higher Order ONE of the following medications: *Heparin 5000 units SQ TID *Enoxaparin/Lovenox 40 mg SQ daily (WT < 150 kg, CrCl > 30 mL/min) *Enoxaparin/Lovenox 30 mg SQ daily (WT < 150 kg, CrCl > 10-29 mL/min) *Enoxaparin/Lovenox 30 mg SQ BID (WT < 150 kg, CrCl > 30 mL/min) AND/OR *Sequential Compression Device (SCD) 5 or more Highest Order ONE of the following medications: *Heparin 5000 units SQ TID (Preferred with Epidurals) *Enoxaparin/Lovenox 40 mg SQ daily (WT < 150 kg, CrCl > 30 mL/min) *Enoxaparin/Lovenox 30 mg SQ daily (WT < 150 kg, CrCl > 10-29 mL/min) *Enoxaparin/Lovenox 30 mg SQ BID (WT < 150 kg, CrCl > 30 mL/min) AND *Sequential Compression Device (SCD) Assessment and Plan Assessment and Plan Impression: Altered mental status Hypernatremia Hypokalemia Sinus tachycardia UTI HTN DM Moderate tricuspid regurgitation Mild mitral regurgitation History of H. pylori gastritis Plan: CT brain personally reviewed. Evidence of ventriculomegaly. Given that patient is quite confused, would obtain MRI of the brain in a.m. CT pulmonary angiogram personally reviewed. There is no evidence of pulmonary embolism/infiltrates/pneumothorax. Repeat BMP stat. However repeat blood work may still reveal hypernatremia since patient received normal saline boluses in ER. If so, would encourage by mouth free water intake. We'll start patient on D5 IV fluids. Potassium 20 mEq IV was given in ER. Give additional 50 mEq by mouth. Another 50 mEq by mouth in about 4 hours. We'll follow urine culture results. Patient was given Rocephin in ER. Start patient on levofloxacin 750 mg IV every 24 hours. Obtain blood cultures. Monitor fingersticks. hold long-acting insulin and oral hypoglycemics. DVT prophylaxis with Lovenox. Discussed Condition With patient, ER MD, nursing staff Physician Certification 2 Midnight Certification Type: Admission for Inpatient Services Order for Inpatient Services The services are ordered in accordance with Medicare regulations or non- Medicare payer requirements, as applicable. In the case of services not specified as inpatient-only, they are appropriately provided as inpatient services in accordance with the 2-midnight benchmark. Estimated LOS (days): 2 days is the estimated time the patient will need to remain in the hospital, assuming treatment plan goals are met and no additional complications. Post-Hospital Plan: Not yet determined Angelica Hutton MD Jan 06, 2017 16:42
[2017-01-06] MEDS ORDERED: POTASSIUM CHLORIDE 25 MEQ EFFERVESCENT TAB PO ONE ×2 (16:45→20:00)
[2017-01-06 16:56] LABS: BICARBONATE 24.8 MEQ/L (21.0-32.0); POTASSIUM 3.1 MEQ/L (3.5-5.1)
[2017-01-06] MEDS ORDERED: DEXTROSE 50% IN WATER 50 ML SYRINGE IV PUSH PRN (17:15)
[2017-01-06] MEDS ORDERED: GLUCAGON 1 MG/ML VIAL OTHER PRN (17:15)
[2017-01-06] MEDS: LEVOFLOXACIN 750 MG PREMIX INJ 150 ML IV SCH (18:47)
[2017-01-06] MEDS: FREE WATER PO SCH (20:00)
[2017-01-06] MEDS: DEXTROSE 5% IN WATE 1000ML INJ 1,000 ML IV SCH (20:55)
[2017-01-06] MEDS: SODIUM CHLORIDE 0.9% FLUSH 10 ML FLUSH IV FLUSH SCH (21:00)
[2017-01-07] VITALS (7 sets, daily range): BP systolic 143–151; BP diastolic 66–78; PULSE 88–117; RESP 16–20; TEMP 97.4–98.5; O2SAT 97–100
[2017-01-07] MEDS ORDERED: METOPROLOL TARTRATE 25 MG TAB PO ONE (00:45)
[2017-01-07] MEDS: FREE WATER PO SCH ×6 (04:00→20:00)
[2017-01-07 04:09] LABS: AUTOMATED NEUTROPHIL # 3.9 TH/MM3 (1.8-7.7); BASOPHIL % 0.3 % (0.0-2.0); EOSINOPHIL # 0.1 TH/MM3 (0-0.4); EOSINOPHIL % 1.5 % (0.0-4.0); HEMATOCRIT 32.1 % (35.0-46.0); HEMO FLAGS DIFF FINAL; LYMPH % 31.8 % (9.0-44.0); LYMPHOCYTE # 2.3 TH/MM3 (1.0-4.8); MEAN CELL VOLUME 95.4 FL (80.0-100.0); MEAN CORPUSCULAR HEMOGLOBIN 30.9 PG (27.0-34.0); MEAN CORPUSCULAR HGB CONC 32.3 % (32.0-36.0); MONO % 12.1 % (0.0-8.0); NEUT % 54.3 % (16.0-70.0); PLATELET COUNT 211 TH/MM3 (150-450); RED BLOOD COUNT 3.36 MIL/MM3 (4.00-5.30); RED CELL DISTRIBUTION WIDTH 16.1 % (11.6-17.2); WHITE BLOOD COUNT 7.1 TH/MM3 (4.0-11.0)
[2017-01-07 04:39] LABS: BICARBONATE 26.8 MEQ/L (21.0-32.0); POTASSIUM 3.6 MEQ/L (3.5-5.1)
[2017-01-07] MEDS: DEXTROSE 5% IN WATE 1000ML INJ 1,000 ML IV SCH ×3 (06:00→16:00)
[2017-01-07] MEDS: ENOXAPARIN SODIUM 40 MG/0.4 ML SYRINGE SQ SCH (08:23)
[2017-01-07] MEDS: SODIUM CHLORIDE 0.9% FLUSH 10 ML FLUSH IV FLUSH SCH ×2 (08:24→21:00)
[2017-01-07] MEDS ORDERED: GLUCAGON 1 MG/ML VIAL OTHER PRN (09:30)
[2017-01-07] MEDS ORDERED: DEXTROSE 50% IN WATER 50 ML VIAL(D50) IV PUSH PRN (09:30)
--- NOTE | 2017-01-07 09:40 | RADRPT ---
EXAM DATE/TIME: 01/07/2017 08:56 [place] COMPARISON: CT BRAIN W/O CONTRAST, October 11, 2016, 12:54. INDICATIONS : Ventriculomegaly. MEDICAL HISTORY : Hypertension. SURGICAL HISTORY : Appendectomy. Cholecystectomy. ENCOUNTER: Initial ACUITY: 1 day PAIN SCORE: 0/10 LOCATION: cranial TECHNIQUE: Multiplanar, multisequence MRI of the brain was performed without contrast. FINDINGS: CEREBRUM: Moderate diffuse cerebral volume loss. Ventricles are slightly out of proportion in siz e for degree of atrophy. No evidence of midline shift, mass lesion, hemorrhage or acute infarction. No extraaxial fluid collections are seen. The pituitary gland and suprasellar cistern are normal in configuration. WHITE MATTER: Mild diffuse periventricular white matter T2 prolongation concerning for transepend ymal edema. Additional scattered white matter hypodensities likely related to ischemic white matter d emyelination. POSTERIOR FOSSA: The cerebellum and brainstem are intact. The 4th ventricle is midline. The cere bellopontine angle is unremarkable. The cerebellar tonsils are normal in position. DIFFUSION IMAGING: No focal areas of restricted diffusion are seen. No evidence of acute infarct ion. EXTRACRANIAL: The visualized portions of the orbits and paranasal sinuses are unremarkable. CONCLUSION: 1. Mild ventriculomegaly out of proportion for degree of volume loss with mild diffuse periventricula r transependymal edema concerning for normal pressure hydrocephalus. Clinical correlation is recommen ded. 2. Otherwise, no acute abnormality. Rigoberto Reis MD on January 07, 2017 at 9:31 Board Certified Radiologist. This report was verified electronically.
--- NOTE | 2017-01-07 09:43 | HHI.PR ---
Subjective Remarks f/u; encephalopathy awake but still confused. denies pain. noted that was tachycardic over night and received a dose of metoprolol. d/w the RN. Objective Vitals Vital Signs Date Time Temp Pulse Resp B/P (MAP) Pulse Ox O2 Delivery O2 Flow Rate FiO2 01/07/17 03:35 97.4 108 18 143/78 (99) 100 01/06/17 23:33 97.6 119 18 127/56 (79) 97 01/06/17 20:15 123 01/06/17 20:05 98.4 137 20 128/58 (81) 96 01/06/17 17:03 97.9 123 18 162/73 (102) 98 01/06/17 16:08 117 18 160/68 (98) 100 Room Air 01/06/17 16:06 145 18 150/83 (105) 100 Room Air 01/06/17 15:37 145 18 142/87 (105) 98 Room Air 01/06/17 14:55 147 18 147/82 (103) 99 Room Air 01/06/17 13:48 148 18 138/73 (94) 100 Nasal Cannula 2.00 01/06/17 13:47 99 Nasal Cannula 2.00 01/06/17 13:47 18 99 Nasal Cannula 2.00 01/06/17 13:41 149 138/73 (94) 140/82 (101) 01/06/17 13:39 151 26 99 Room Air 01/06/17 13:37 98.3 149 26 138/73 (94) 99 Nasal Cannula 2.00 01/06/17 13:08 98.9 158 18 120/54 (76) 96 I/O 01/06/17 01/06/17 01/06/17 01/07/17 01/07/17 01/07/17 07:00 15:00 23:00 07:00 15:00 23:00 Intake Total 350 ml 844 ml 837 ml Output Total 106 ml Balance 350 ml 738 ml 837 ml Intake Oral 200 ml 440 ml IV Total 150 ml 404 ml 837 ml Output Urine Total 106 ml # Voids 1 1 1 # Bowel Movements 1 1 Result Diagram: 01/07/17 0340 01/07/17 0340 Imaging Last Impressions Head CT 01/06/17 1410 Signed Impressions: Service Date/Time: Friday, January 06, 2017 15:36 - CONCLUSION: Increasing ventricular prominence. Nonspecific but can be seen with normal pressure hydrocephalus. Jose Moreno MD FACR Chest X-Ray 01/06/171336 Signed Impressions: Service Date/Time: Friday, January 06, 2017 14:08 - CONCLUSION: 1. No acute cardiopulmonary disease. Abdiel Lerma MD CT Angiography [id number]/06/171336 Signed Impressions: Service Date/Time: Friday, January 06, 2017 15:42 - CONCLUSION: 1. No evidence of pulmonary embolism. 2. Coronary artery calcifications. Abdiel Lerma MD Objective Remarks GENERAL: This is a well-nourished, well-developed patient, in no apparent distress. CARDIOVASCULAR: Regular rate and regular rhythm without murmurs, gallops, or rubs. RESPIRATORY: Clear to auscultation. Breath sounds equal bilaterally. No wheezes , rales, or rhonchi. GASTROINTESTINAL: Abdomen soft, non-tender, nondistended. Normal, active bowel sounds MUSCULOSKELETAL: Extremities without clubbing, cyanosis, or edema. NEURO: awake but confused. Medications and IVs Current Medications Aspirin (Aspirin Chew) 324 mg ONCE ONCE PO Last administered on 01/06/17 13: 50; Start 01/06/17 at 13:45; Stop 01/06/17 at 13:46; Status DC Sodium Chloride (NS Flush) 2 ml UNSCH PRN IVF FLUSH AFTER USING IV ACCESS; Start 01/06/17 at 13:45; Stop 01/07/17 at 00:49; Status DC Sodium Chloride 500 ml @ 500 mls/hr ONCE ONCE IV Last administered on 13:49; Start 01/06/17 at 13:45; Stop 01/06/17 at 15:42; Status DC Sodium Chloride 500 ml @ 500 mls/hr BOLUS ONCE IV Last administered on 14:45; Start 01/06/17 at 14:45; Stop 01/06/17 at 15:42; Status DC Potassium Chloride 100 ml @ 50 mls/hr Q2H IV Last administered on 01/06/17 16 :45; Start 01/06/17 at 14:45; Stop 01/06/17 at 18:44; Status DC Ceftriaxone Sodium 1000 mg/ Sodium Chloride 100 ml @ 200 mls/hr ONCE ONCE IV Last administered on 01/06/17 15:31; Start 01/06/17 at 15:30; Stop 01/06/17 at 15:59; Status DC Sodium Chloride (NS Flush) 2 ml UNSCH PRN IV FLUSH FLUSH AFTER USING IV ACCESS ; Start 01/06/17 at 15:45 Sodium Chloride (NS Flush) 2 ml BID IV FLUSH Last administered on 01/06/17 21: 00; Start 01/06/17 at 21:00 Naloxone HCl (Narcan Inj) 0.4 mg UNSCH PRN IV PUSH SEE LABEL COMMENTS; Start 01/06/17 at 15:45 Metoprolol Tartrate (Lopressor Inj) 2.5 mg ONCE ONCE IV PUSH Last administered on 01/06/17 16:08; Start 01/06/17 at 15:45; Stop 01/06/17 at 15:46 ; Status DC Iohexol (Omnipaque 350 Inj) 50 ml STK-MED ONCE IVCONTRAST Last administered on 01/06/17 15:45; Start 01/06/17 at 15:45; Stop 01/06/17 at 15:46; Status DC Potassium Bicarb/ Potassium Chloride (K-Lyte Cl Eff) 50 meq ONCE ONCE PO Last administered on 01/06/17 16:45; Start 01/06/17 at 16:45; Stop 01/06/17 at 18:00; Status DC Levofloxacin/ Dextrose 150 ml @ 100 mls/hr Q24H IV Last administered on 18:47; Start 01/06/17 at 18:00 Dextrose (D50w (Syr) Inj) 50 ml UNSCH PRN IV PUSH HYPOGLYCEMIA-SEE COMMENTS; Start 01/06/17 at 17:15 Glucagon (Glucagon Inj) 1 mg UNSCH PRN OTHER HYPOGLYCEMIA-SEE COMMENTS; Start 01/06/17 at 17:15 Water (Free Water) 200 ml Q4HR PO Last administered on 01/07/17 08:00; Start 01/06/17 at 20:00 Dextrose 1,000 ml @ 100 mls/hr Q10H IV Last administered on 01/07/17 08:24; Start 01/06/17 at 20:00 Potassium Bicarb/ Potassium Chloride (K-Lyte Cl Eff) 50 meq ONCE ONCE PO Last administered on 01/06/17 20:55; Start 01/06/17 at 20:00; Stop 01/06/17 at 20:01; Status DC Enoxaparin Sodium (Lovenox Inj) 40 mg Q24H SQ Last administered on 01/07/17 08 :23; Start 01/07/17 at 09:00 Metoprolol Tartrate (Lopressor) 12.5 mg ONCE ONCE PO Last administered on 01/07 00:58; Start 01/07/17 at 00:45; Stop 01/07/17 at 00:48; Status DC A/P Assessment and Plan A/P Acute encephalopathy- possibly due to dehydration and UTI continue with neuro-checks- continue IV fluid and antibiotics- follow the cultures. monitor the renal function and electrolytes closely. MRI brain pending. Hypernatremia- continue IV fluid and monitor the sodium level. Hypokalemia-improved. Sinus tachycardia- due to dehydration-overall better- continue to monitor nonspecific elevation of troponin- no chest pain- likely due to tachycardia- UTI- on antibiotic- follow the culture HTN- hold BP meds- will monitor for now. DM- accu-check with SSI. History of H. pylori gastritis; continue home meds DVT prophylaxis with subq Lovenox PT consulted. Discharge Planning d/w the niece; plan for SNF placement. case management consulted. Melanie Mcnair MD Jan 07, 2017 09:43
[2017-01-07] MEDS ORDERED: PILL SPLITTER OTHER PRN (11:15)
[2017-01-07] MEDS: INSULIN ASPART SUPPLEMENTAL SCALE SQ SCH ×3 (11:47→20:58)
[2017-01-07] MEDS: BETHANECHOL CHL 25 MG TAB PO SCH ×3 (11:48→21:01)
[2017-01-07] MEDS: SUCRALFATE 1 GM/10 ML CUP PO SCH ×2 (11:48→17:52)
[2017-01-07 15:54] LABS: BICARBONATE 24.6 MEQ/L (21.0-32.0); POTASSIUM 3.4 MEQ/L (3.5-5.1)
[2017-01-07] MEDS: LEVOFLOXACIN 750 MG PREMIX INJ 150 ML IV SCH (17:45)
[2017-01-07] MEDS: ATORVASTATIN 40 MG TAB PO SCH (21:01)
[2017-01-08] VITALS: BP 146/70; PULSE 101; RESP 20; TEMP 97.8; O2SAT 100
[2017-01-08] MEDS: DEXTROSE 5% IN WATE 1000ML INJ 1,000 ML IV SCH ×2 (00:53→12:36)
[2017-01-08] MEDS: FREE WATER PO SCH ×7 (03:52→19:34)
--- NOTE | 2017-01-08 05:23 | MB ---
cc: DALLAS JAIN MD DATE OF CONSULTATION: 01/07/2017 REASON FOR CONSULTATION: "Please evaluate for possible NPH." HISTORY OF PRESENT ILLNESS: Ms. Matthew is an 81 year-old female who is a very poor historian with no family at bedside. Thus the medical history is obtained partly from the patient and mainly from the medical records. According to family who gave some medical history in the emergency room, she lives with her daughter who has Down syndrome and takes care of her daughter and a daughter has a campground caretaker who cooks for both the mother and the daughter. The family members think that she has not been doing well for several months and she was diagnosed with dementia and she has been shaking of the past several months. She was recently treated by her PCP for dehydration and received IV fluids and had a UTI in November. The patient was also noted to be in sinus tachycardia with a heart rate of 180. REVIEW OF SYSTEMS Unable to obtain. PAST MEDICAL HISTORY Review of medical records, hypertension, diabetes mellitus, moderate tricuspid regurgitation, mild mitral regurgitation history of H. pylori gastritis. PAST SURGICAL HISTORY ERCP with sphincterotomy in October 2016. ALLERGIES CIPROFLOXACIN FAMILY HISTORY Unable to obtain. SOCIAL HISTORY Review of medical records, no smoking. No drug abuse, no ethanol abuse. PHYSICAL EXAMINATION General: Laying in bed, pleasant, poor historian, shaking with tremor, mainly right upper and lower extremity. HEENT: Atraumatic, normocephalic. Intact hearing. Intact vision. Neck: Supple. No signs of meningeal irritation. Cardiovascular: Regular rate and rhythm. Respiratory: Clear to auscultation, no wheezes. Gastrointestinal: Soft abdomen, nontender. Musculoskeletal: No clubbing, no cyanosis. No edema. Neurological: Awake, alert, oriented to person, not place, not time, impaired short-term memory and recall. She knows the name of the president. No frontal release signs. No dysarthria or facial asymmetry. No nystagmus. Pupils 3 mm bilaterally equal, symmetrical. Unable to assess motor function but she moves extremities equally, no focal deficits bilateral upper and lower extremities on the right greater than the left. There is a rest tremor but it is not coarse per the Parkinson syndrome, mild cogwheel rigidity, right greater than left in the upper extremities. Reflexes 1+ bilateral symmetrical. Plantars are bilaterally downgoing. LABORATORY DATA WBC 7.1, hemoglobin 10.4, MCV 95.4, platelet 211. Sodium initially was 161 trending down to 156 and later today 151, potassium 3.4, anion gap 7, BUN 18, creatinine 0.43, calcium 8.4, troponin elevated at 0.44, INR 1.2. Urine revealed UTI with large leukocyte esterase and urine white blood cells. DIAGNOSTIC IMAGING - Head CT scan without contrast revealed increasing ventricular prominence nonspecific but can be seen in normal pressure hydrocephalus. - Brain MRI revealed mild ventriculomegaly out of proportion for degree of volume loss with mild diffuse periventricular transependymal edema concerning for normal pressure hydrocephalus. No acute abnormality. DIAGNOSTIC IMPRESSION 1. Dementia. 2. Encephalopathy may be related metabolic/electrolyte derangements/infectious etiology. 3. Tremor unlikely extrapyramidal tremor, more likely to be intention tremor. 4. Hypernatremia. 5. Hypokalemia. 6. Sinus tachycardia. 7. Diabetes mellitus. PLAN 1. Neuro checks q4 hourly. 2. Continue supportive medical therapy. 3. Consult neurosurgery for evaluation and further management of normal pressure hydrocephalus. 4. DVT prophylaxis. 5. GI prophylaxis. 6. Telemetry. Thank you for asking me to participate in the care of your patient. MD DAMION Bejarano/LIYA /10:58 PM /6:05 AM TONE
[2017-01-08] MEDS: SUCRALFATE 1 GM/10 ML CUP PO SCH ×3 (05:52→18:07)
[2017-01-08 08:00] VITALS: BP 148/77; PULSE 118; PULSE 77; RESP 18; TEMP 97.3; O2SAT 100
[2017-01-08 08:41] LABS: BICARBONATE 25.2 MEQ/L (21.0-32.0); POTASSIUM 3.1 MEQ/L (3.5-5.1)
--- NOTE | 2017-01-08 08:53 | EKG ---
Date Performed: 01/06/2017 Time Performed: 13:30:56 PTAGE: 81 years EKG: SINUS TACHYCARDIA WITH SHORT PA INTERVAL WITH OCCASIONAL SUPRAVENTRICULAR PREMATURE COMPLEX ES, POSSIBLE ATRIAL FLUTTER ST DEVIATION AND MODERATE T-WAVE ABNORMALITY, CONSIDER LATERAL ISCHEMIA A BNORMAL ECG INTERPRETATION BASED ON A DEFAULT AGE OF 40 YEARS PREVIOUS TRACING : 11/24/16 @ 1159 DOCTOR: Tony Valenzuela Interpretating Date/Time 01/08/2017 08:52:35
--- NOTE | 2017-01-08 08:53 | EKG ---
Date Performed: 01/06/2017 Time Performed: 19:18:12 PTAGE: 81 years EKG: SINUS TACHYCARDIA WITH SHORT [place] INTERVAL NONSPECIFIC ST & T-WAVE ABNORMALITY Compared to pr ior tracing no significant change ABNORMAL ECG PREVIOUS TRACING : 01/06/2017 13.30 DOCTOR: Tony Valenzuela Interpretating Date/Time 01/08/2017 08:52:44
--- NOTE | 2017-01-08 08:54 | EKG ---
Date Performed: 01/07/2017 Time Performed: 02:18:10 PTAGE: 81 years EKG: Sinus tachycardia Lateral ST changes are nonspecific Compared to prior tracing no significa nt change Borderline ECG PREVIOUS TRACING : 01/06/2017 19.18 DOCTOR: Tony Valenzuela Interpretating Date/Time 01/08/2017 08:52:52
[2017-01-08] MEDS: PANTOPRAZOLE SOD 40 MG DELAYED RELEASE TAB PO SCH (09:19)
[2017-01-08] MEDS: ENOXAPARIN SODIUM 40 MG/0.4 ML SYRINGE SQ SCH (09:19)
[2017-01-08] MEDS: DONEPEZIL HCL 5 MG TAB PO SCH (09:19)
[2017-01-08] MEDS: INSULIN ASPART SUPPLEMENTAL SCALE SQ SCH ×4 (09:19→20:46)
[2017-01-08] MEDS: BETHANECHOL CHL 25 MG TAB PO SCH ×4 (09:20→20:47)
[2017-01-08] MEDS: ASPIRIN EC 81 MG TABEC PO SCH (09:22)
[2017-01-08] MEDS: SODIUM CHLORIDE 0.9% FLUSH 10 ML FLUSH IV FLUSH SCH ×2 (09:22→20:47)
--- NOTE | 2017-01-08 09:37 | HHI.PR ---
Subjective Remarks in no acute distress. awake and more alert today- although still not oriented to time. denies apin. no fever. Objective Vitals Vital Signs Date Time Temp Pulse Resp B/P (MAP) Pulse Ox O2 Delivery O2 Flow Rate FiO2 01/08/17 08:00 97.3 77 18 148/77 (100) 100 01/08/17 00:00 97.8 101 20 146/70 (95) 100 01/07/17 20:00 98.0 107 20 147/70 (95) 100 01/07/17 20:00 Room Air 01/07/17 19:54 89 01/07/17 16:35 98.4 88 16 151/67 (95) 100 01/07/17 12:00 98.5 114 18 148/71 (96) 97 01/07/17 11:33 117 I/O 01/07/17 01/07/17 01/07/17 01/08/17 01/08/17 01/08/17 07:00 15:00 23:00 07:00 15:00 23:00 Intake Total 844 ml 837 ml 1173 ml Output Total 106 ml 350 ml Balance 738 ml 837 ml 823 ml Intake Oral 440 ml 360 ml IV Total 404 ml 837 ml 813 ml Output Urine Total 106 ml 350 ml # Voids 1 # Bowel Movements 1 1 Result Diagram: 01/07/17 0340 01/08/17 0658 Imaging Last Impressions Brain MRI 01/07/17 0000 Signed Impressions: Service Date/Time: Saturday, January 07, 2017 08:56 - CONCLUSION: 1. Mild ventriculomegaly out of proportion for degree of volume loss with mild diffuse periventricular transependymal edema concerning for normal pressure hydrocephalus. Clinical correlation is recommended. 2. Otherwise, no acute abnormality. Rigoberto Reis MD Head CT 01/06/17 1410 Signed Impressions: Service Date/Time: Friday, January 06, 2017 15:36 - CONCLUSION: Increasing ventricular prominence. Nonspecific but can be seen with normal pressure hydrocephalus. Jose Moreno MD FACR Chest X-Ray [id number]/06/[id number] Signed Impressions: Service Date/Time: Friday, January 06, 2017 14:08 - CONCLUSION: 1. No acute cardiopulmonary disease. Abdiel Lerma MD CT Angiography [id number]/06/[id number] Signed Impressions: Service Date/Time: Friday, January 06, 2017 15:42 - CONCLUSION: 1. No evidence of pulmonary embolism. 2. Coronary artery calcifications. Abdiel Lerma MD Objective Remarks GENERAL: This is a well-nourished, well-developed patient, in no apparent distress. CARDIOVASCULAR: Regular rate and regular rhythm without murmurs, gallops, or rubs. RESPIRATORY: Clear to auscultation. Breath sounds equal bilaterally. No wheezes , rales, or rhonchi. GASTROINTESTINAL: Abdomen soft, non-tender, nondistended. Normal, active bowel sounds MUSCULOSKELETAL: Extremities without clubbing, cyanosis, or edema. NEURO: awake but confused. Medications and IVs Current Medications Aspirin (Aspirin Chew) 324 mg ONCE ONCE PO Last administered on 01/06/17 13: 50; Start 01/06/17 at 13:45; Stop 01/06/17 at 13:46; Status DC Sodium Chloride (NS Flush) 2 ml UNSCH PRN IVF FLUSH AFTER USING IV ACCESS; Start 01/06/17 at 13:45; Stop 01/07/17 at 00:49; Status DC Sodium Chloride 500 ml @ 500 mls/hr ONCE ONCE IV Last administered on 13:49; Start 01/06/17 at 13:45; Stop 01/06/17 at 15:42; Status DC Sodium Chloride 500 ml @ 500 mls/hr BOLUS ONCE IV Last administered on 14:45; Start 01/06/17 at 14:45; Stop 01/06/17 at 15:42; Status DC Potassium Chloride 100 ml @ 50 mls/hr Q2H IV Last administered on 01/06/17 16 :45; Start 01/06/17 at 14:45; Stop 01/06/17 at 18:44; Status DC Ceftriaxone Sodium 1000 mg/ Sodium Chloride 100 ml @ 200 mls/hr ONCE ONCE IV Last administered on 01/06/17 15:31; Start 01/06/17 at 15:30; Stop 01/06/17 at 15:59; Status DC Sodium Chloride (NS Flush) 2 ml UNSCH PRN IV FLUSH FLUSH AFTER USING IV ACCESS ; Start 01/06/17 at 15:45 Sodium Chloride (NS Flush) 2 ml BID IV FLUSH Last administered on 01/08/17 09: 22; Start 01/06/17 at 21:00 Naloxone HCl (Narcan Inj) 0.4 mg UNSCH PRN IV PUSH SEE LABEL COMMENTS; Start 01/06/17 at 15:45 Metoprolol Tartrate (Lopressor Inj) 2.5 mg ONCE ONCE IV PUSH Last administered on 01/06/17 16:08; Start 01/06/17 at 15:45; Stop 01/06/17 at 15:46 ; Status DC Iohexol (Omnipaque 350 Inj) 50 ml STK-MED ONCE IVCONTRAST Last administered on 01/06/17 15:45; Start 01/06/17 at 15:45; Stop 01/06/17 at 15:46; Status DC Potassium Bicarb/ Potassium Chloride (K-Lyte Cl Eff) 50 meq ONCE ONCE PO Last administered on 01/06/17 16:45; Start 01/06/17 at 16:45; Stop 01/06/17 at 18:00; Status DC Levofloxacin/ Dextrose 150 ml @ 100 mls/hr Q24H IV Last administered on 17:45; Start 01/06/17 at 18:00 Dextrose (D50w (Syr) Inj) 50 ml UNSCH PRN IV PUSH HYPOGLYCEMIA-SEE COMMENTS; Start 01/06/17 at 17:15; Stop 01/07/17 at 10:58; Status DC Glucagon (Glucagon Inj) 1 mg UNSCH PRN OTHER HYPOGLYCEMIA-SEE COMMENTS; Start 01/06/17 at 17:15; Stop 01/07/17 at 10:58; Status DC Water (Free Water) 200 ml Q4HR PO Last administered on 01/08/17 03:52; Start 01/06/17 at 20:00 Dextrose 1,000 ml @ 100 mls/hr Q10H IV Last administered on 01/08/17 00:53; Start 01/06/17 at 20:00 Potassium Bicarb/ Potassium Chloride (K-Lyte Cl Eff) 50 meq ONCE ONCE PO Last administered on 01/06/17 20:55; Start 01/06/17 at 20:00; Stop 01/06/17 at 20:01; Status DC Enoxaparin Sodium (Lovenox Inj) 40 mg Q24H SQ Last administered on 01/08/17 09 :19; Start 01/07/17 at 09:00 Metoprolol Tartrate (Lopressor) 12.5 mg ONCE ONCE PO Last administered on 01/07 00:58; Start 01/07/17 at 00:45; Stop 01/07/17 at 00:48; Status DC Dextrose (D50w (Vial) Inj) 50 ml UNSCH PRN IV PUSH HYPOGLYCEMIA-SEE COMMENTS; Start 01/07/17 at 09:30 Glucagon (Glucagon Inj) 1 mg UNSCH PRN OTHER HYPOGLYCEMIA-SEE COMMENTS; Start 01/07/17 at 09:30 Insulin Aspart (NovoLOG SUPPLEMENTAL SCALE) 1 ACHS SLIDING SCALE SQ Last administered on 01/08/17 09:19; Start 01/07/17 at 12:00 Aspirin (Ecotrin Ec) 81 mg DAILY PO Last administered on 01/08/17 09:22; Start 01/08/17 at 09:00 Atorvastatin Calcium (Lipitor) 40 mg HS PO Last administered on 01/07/17 21:01 ; Start 01/07/17 at 21:00 Bethanechol Chloride (Urecholine) 12.5 mg QID PO Last administered on 09:20; Start 01/07/17 at 13:00 Donepezil HCl (Aricept) 5 mg DAILY PO Last administered on 01/08/17 09:19; Start 01/08/17 at 09:00 Sucralfate (Carafate Liq) 1 gm TID@0600,1100,1600 PO Last administered on 05:52; Start 01/07/17 at 11:30 Pantoprazole Sodium (Protonix) 40 mg DAILY PO Last administered on 01/08/17 09 :19; Start 01/08/17 at 09:00 Miscellaneous (Pill Splitter) 1 ea UNSCH PRN OTHER SEE LABEL COMMENTS; Start 01/07/17 at 11:15 A/P Assessment and Plan A/P Acute encephalopathy- possibly due to dehydration , UTI continue with neuro-checks- continue IV fluid and antibiotics- follow the cultures. monitor the renal function and electrolytes closely. MRI brain with possible NPH- neurology evaluation appreciated; will consult neurosurgery. Hypernatremia- improving- continue IV fluid ; will likely stop the fluid tomorrow if stable. Hypokalemia-will replace. Sinus tachycardia- due to dehydration-overall better- continue to monitor nonspecific elevation of troponin- no chest pain- likely due to tachycardia- UTI with e-coli- on antibiotic- HTN- hold BP meds- will monitor for now. DM- accu-check with SSI. History of H. pylori gastritis; continue home meds DVT prophylaxis with subq Lovenox PT consulted. Discharge Planning dc planning to SNF- pending neurosurgery evaluation. Melanie Mcnair MD Jan 08, 2017 09:37
[2017-01-08] MEDS ORDERED: POTASSIUM CHLORIDE 10 MEQ CONTROLLED RELEASE TAB PO ONE ×2 (10:30→14:00)
--- NOTE | 2017-01-08 11:09 | PD.CONS ---
[facility] Service neurosurgery Consult Requested By Desean Stroud Reason for Consult NPH Primary Care Physician Unknown History of Present Illness Ms. Matthew is an 81 year-old female who is a very poor historian with no family at bedside. Her medical history is obtained partly from the patient and mainly from the medical records. She lives with her daughter who has Down syndrome and takes care of her daughter and a daughter has a solvent plant operator who cooks for both the mother and the daughter. The family members think that she has not been doing well for several months and she was diagnosed with dementia and she has been shaking of the past several months. She was recently treated by her PCP for dehydration and received IV fluids and had a UTI in November. The patient was also noted to be in sinus tachycardia with a heart rate of 180.. CT of the brain showed ventriculomegaly. Neurosurgical consultation was requested Past Family Social History Allergies: Coded Allergies: ciprofloxacin (Verified Allergy, Severe, RASH, VOMITING, 11/29/16) Past Medical History HTN DM Moderate tricuspid regurgitation Mild mitral regurgitation History of H. pylori gastritis Past Surgical History ERCP with sphincterotomy in October 2016 Active Ordered Medications Current Medications Aspirin (Aspirin Chew) 324 mg ONCE ONCE PO Last administered on 01/06/17 13: 50; Start 01/06/17 at 13:45; Stop 01/06/17 at 13:46; Status DC Sodium Chloride (NS Flush) 2 ml UNSCH PRN IVF FLUSH AFTER USING IV ACCESS; Start 01/06/17 at 13:45; Stop 01/07/17 at 00:49; Status DC Sodium Chloride 500 ml @ 500 mls/hr ONCE ONCE IV Last administered on 13:49; Start 01/06/17 at 13:45; Stop 01/06/17 at 15:42; Status DC Sodium Chloride 500 ml @ 500 mls/hr BOLUS ONCE IV Last administered on 14:45; Start 01/06/17 at 14:45; Stop 01/06/17 at 15:42; Status DC Potassium Chloride 100 ml @ 50 mls/hr Q2H IV Last administered on 01/06/17 16 :45; Start 01/06/17 at 14:45; Stop 01/06/17 at 18:44; Status DC Ceftriaxone Sodium 1000 mg/ Sodium Chloride 100 ml @ 200 mls/hr ONCE ONCE IV Last administered on 01/06/17 15:31; Start 01/06/17 at 15:30; Stop 01/06/17 at 15:59; Status DC Sodium Chloride (NS Flush) 2 ml UNSCH PRN IV FLUSH FLUSH AFTER USING IV ACCESS ; Start 01/06/17 at 15:45 Sodium Chloride (NS Flush) 2 ml BID IV FLUSH Last administered on 01/08/17 09: 22; Start 01/06/17 at 21:00 Naloxone HCl (Narcan Inj) 0.4 mg UNSCH PRN IV PUSH SEE LABEL COMMENTS; Start 01/06/17 at 15:45 Metoprolol Tartrate (Lopressor Inj) 2.5 mg ONCE ONCE IV PUSH Last administered on 01/06/17 16:08; Start 01/06/17 at 15:45; Stop 01/06/17 at 15:46 ; Status DC Iohexol (Omnipaque 350 Inj) 50 ml STK-MED ONCE IVCONTRAST Last administered on 01/06/17 15:45; Start 01/06/17 at 15:45; Stop 01/06/17 at 15:46; Status DC Potassium Bicarb/ Potassium Chloride (K-Lyte Cl Eff) 50 meq ONCE ONCE PO Last administered on 01/06/17 16:45; Start 01/06/17 at 16:45; Stop 01/06/17 at 18:00; Status DC Levofloxacin/ Dextrose 150 ml @ 100 mls/hr Q24H IV Last administered on 18:06; Start 01/06/17 at 18:00 Dextrose (D50w (Syr) Inj) 50 ml UNSCH PRN IV PUSH HYPOGLYCEMIA-SEE COMMENTS; Start 01/06/17 at 17:15; Stop 01/07/17 at 10:58; Status DC Glucagon (Glucagon Inj) 1 mg UNSCH PRN OTHER HYPOGLYCEMIA-SEE COMMENTS; Start 01/06/17 at 17:15; Stop 01/07/17 at 10:58; Status DC Water (Free Water) 200 ml Q4HR PO Last administered on 01/08/17 03:52; Start 01/06/17 at 20:00 Dextrose 1,000 ml @ 60 mls/hr [id number] IV Last administered on 01/08/17 12:36 ; Start 01/06/17 at 20:00 Potassium Bicarb/ Potassium Chloride (K-Lyte Cl Eff) 50 meq ONCE ONCE PO Last administered on 01/06/17 20:55; Start 01/06/17 at 20:00; Stop 01/06/17 at 20:01; Status DC Enoxaparin Sodium (Lovenox Inj) 40 mg Q24H SQ Last administered on 01/08/17 09 :19; Start 01/07/17 at 09:00 Metoprolol Tartrate (Lopressor) 12.5 mg ONCE ONCE PO Last administered on 01/07 00:58; Start 01/07/17 at 00:45; Stop 01/07/17 at 00:48; Status DC Dextrose (D50w (Vial) Inj) 50 ml UNSCH PRN IV PUSH HYPOGLYCEMIA-SEE COMMENTS; Start 01/07/17 at 09:30 Glucagon (Glucagon Inj) 1 mg UNSCH PRN OTHER HYPOGLYCEMIA-SEE COMMENTS; Start 01/07/17 at 09:30 Insulin Aspart (NovoLOG SUPPLEMENTAL SCALE) 1 ACHS SLIDING SCALE SQ Last administered on 01/08/17 12:36; Start 01/07/17 at 12:00 Aspirin (Ecotrin Ec) 81 mg DAILY PO Last administered on 01/08/17 09:22; Start 01/08/17 at 09:00 Atorvastatin Calcium (Lipitor) 40 mg HS PO Last administered on 01/07/17 21:01 ; Start 01/07/17 at 21:00 Bethanechol Chloride (Urecholine) 12.5 mg QID PO Last administered on 18:07; Start 01/07/17 at 13:00 Donepezil HCl (Aricept) 5 mg DAILY PO Last administered on 01/08/17 09:19; Start 01/08/17 at 09:00 Sucralfate (Carafate Liq) 1 gm TID@0600,1100,1600 PO Last administered on 18:07; Start 01/07/17 at 11:30 Pantoprazole Sodium (Protonix) 40 mg DAILY PO Last administered on 01/08/17 09 :19; Start 01/08/17 at 09:00 Miscellaneous (Pill Splitter) 1 ea UNSCH PRN OTHER SEE LABEL COMMENTS; Start 01/07/17 at 11:15 Potassium Chloride (KCl) 30 meq ONCE ONCE PO Last administered on 01/08/17 12 :38; Start 01/08/17 at 10:30; Stop 01/08/17 at 10:39; Status DC Potassium Chloride (KCl) 30 meq ONCE ONCE PO Last administered on 01/08/17 15 :10; Start 01/08/17 at 14:00; Stop 01/08/17 at 14:01; Status DC Family History Her family history was reviewed. She does not know Social History denies smoking/ etoh abuse or drug abuse Physical Exam Vital Signs Vital Signs Date Time Temp Pulse Resp B/P (MAP) Pulse Ox O2 Delivery O2 Flow Rate FiO2 01/08/17 08:00 97.3 77 18 148/77 (100) 100 01/08/17 00:00 97.8 101 20 146/70 (95) 100 01/07/17 20:00 98.0 107 20 147/70 (95) 100 01/07/17 20:00 Room Air 01/07/17 19:54 89 01/07/17 16:35 98.4 88 16 151/67 (95) 100 01/07/17 12:00 98.5 114 18 148/71 (96) 97 01/07/17 11:33 117 Physical Exam The patient is alert, confused, oriented to self, not place, not time, impaired short-term memory and recall. She knows the name of the president. Speech fluent Cranial nerve examination demonstrates the pupils to be equal, round, and reactive to light. Extra-ocular movements are intact with normal convergence. Facial motor function appears normal and symmetrical. Face sensation, hearing, visual grubbs, and olfaction can not be assessed properly due to the patients condition. The patient has an intact corneal reflex and a gag reflex. Sternocleidomastoid and trapezius have normal and symmetrical strength. Other cranial nerves are intact. Neck is soft and supple. Cervical spine has a normal range of motion of the cervical spine without pain. There is no tenderness to palpation to the spinous processes or paraspinal muscles. Muscle testing reveals normal bulk and tone overall without rigidity, spasticity , fasciculations, or atrophy. Resting tremor. Muscle strength is 5/5 in all muscle groups of both upper and lower extremities. Deep tendon reflexes are 1+ and symmetrical in the biceps, triceps, and brachioradialis, bilaterally, in the upper extremities. In the lower extremities , the patellar and Achilles are 1+, bilaterally. There is a bilateral plantar flexion response. Hoffmanns sign is negative. There is no clonus or other abnormal reflexes noted. Cerebellar examination is limited due to the patient condition, but no obvious deficits are noted. Laboratory Laboratory Tests Test 01/07/17 15:08 01/08/17 06:58 Blood Urea Nitrogen 18 12 Creatinine 0.43 0.36 Random Glucose 179 141 Calcium Level 8.9 8.6 Sodium Level 151 145 Potassium Level 3.4 3.1 Chloride Level 119 112 Carbon Dioxide Level 24.6 25.2 Anion Gap 7 8 Estimat Glomerular Filtration Rate 141 173 Date/Time Source Procedure Growth Status 01/06/17 21:33 Blood Peripheral Aerobic Blood Culture - Preliminary NO GROWTH IN 2 DAYS Resulted 01/06/17 21:33 Blood Peripheral Anaerobic Blood Culture - Preliminary NO GROWTH IN 2 DAYS Resulted 01/06/17 14:31 Urine Clean Catch Urine Culture - Final Escherichia Coli Complete Result Diagram: 01/07/17 0340 01/08/17 0658 Imaging Last 48 hours Impressions Brain MRI 01/07/17 0000 Signed Impressions: Service Date/Time: Monday, January 07, 2017 08:56 - CONCLUSION: 1. Mild ventriculomegaly out of proportion for degree of volume loss with mild diffuse periventricular transependymal edema concerning for normal pressure hydrocephalus. Clinical correlation is recommended. 2. Otherwise, no acute abnormality. Rigoberto Reis MD Assessment and Plan Assessment and Plan Caprini VTE Risk Assessment: Mod/High Risk (score >= 2) Caprini Risk Assessment Model Point Value = 1 Point Value = 2 Point Value = 3 Point Value = 5 Age 41-60 Minor surgery BMI > 25 kg/m2 Swollen legs Varicose veins or History of unexplained or recurrent spontaneous Oral contraceptives or hormone replacement Sepsis (< 1 month) Serious lung disease, including pneumonia (< 1 month) Abnormal pulmonary function Acute myocardial infarction Congestive heart failure (< 1 month) History of inflammatory bowel disease Medical patient at bed rest Age 61-74 Arthroscopic surgery Major open surgery (> 45 min) Laparoscopic surgery (> 45 min) Malignancy Confined to bed (> 72 hours) Immobilizing plaster cast Central venous access Age >= 75 History of VTE Family history of VTE Factor V Leiden Prothrombin [id number] Lupus anticoagulant Anticardiolipin antibodies Elevated serum homocysteine Heparin-induced thrombocytopenia Other congenital or acquired thrombophilia Stroke (< 1 month) Elective arthroplasty Hip, pelvis, or leg fracture Acute spinal cord injury (< 1 month) Prophylaxis Regimen Total Risk Factor Score Risk Level Prophylaxis Regimen 0-1 Low Early ambulation 2 Moderate Order ONE of the following: *Sequential Compression Device (SCD) *Heparin 5000 units SQ BID 3-4 Higher Order ONE of the following medications: *Heparin 5000 units SQ TID *Enoxaparin/Lovenox 40 mg SQ daily (WT < 150 kg, CrCl > 30 mL/min) *Enoxaparin/Lovenox 30 mg SQ daily (WT < 150 kg, CrCl > 10-29 mL/min) *Enoxaparin/Lovenox 30 mg SQ BID (WT < 150 kg, CrCl > 30 mL/min) AND/OR *Sequential Compression Device (SCD) 5 or more Highest Order ONE of the following medications: *Heparin 5000 units SQ TID (Preferred with Epidurals) *Enoxaparin/Lovenox 40 mg SQ daily (WT < 150 kg, CrCl > 30 mL/min) *Enoxaparin/Lovenox 30 mg SQ daily (WT < 150 kg, CrCl > 10-29 mL/min) *Enoxaparin/Lovenox 30 mg SQ BID (WT < 150 kg, CrCl > 30 mL/min) AND *Sequential Compression Device (SCD) Attending Statement Neuro. neuro checks in a serial fashion. I recommend a trial of drainage viia a lumbar spinal drain, with PT and neurology assessment Pulmonary.aggressive pulmonary toilette, nasotracheal suction, and breathing treatments with nebulizers. Renal. monitor closely urine output, BUN and creatinine Endocrine. Monitor serial Acu checks and SSI as needed in detail ID monitor for signs of infection Protonix for stress ulcer prophylaxis Octavio gaurav and SCD's for DVT prophylaxis. Jose L Taveras MD Jan 08, 2017 11:09
[2017-01-08 12:00] VITALS: BP 146/67; PULSE 83; RESP 18; TEMP 98.6; O2SAT 99
[2017-01-08 16:00] VITALS: BP 129/58; PULSE 90; RESP 18; TEMP 98.4; O2SAT 100
[2017-01-08] MEDS: LEVOFLOXACIN 750 MG PREMIX INJ 150 ML IV SCH (18:06)
[2017-01-08 20:00] VITALS: BP 138/63; PULSE 101; PULSE 83; RESP 20; TEMP 97.4; O2SAT 95
[2017-01-08] MEDS: ATORVASTATIN 40 MG TAB PO SCH (20:47)
[2017-01-09] VITALS (7 sets, daily range): BP systolic 123–148; BP diastolic 58–84; PULSE 59–89; RESP 18; TEMP 97.6–98.6; O2SAT 93–100
[2017-01-09] MEDS: SUCRALFATE 1 GM/10 ML CUP PO SCH ×3 (05:20→15:54)
[2017-01-09] MEDS: DEXTROSE 5% IN WATE 1000ML INJ 1,000 ML IV SCH ×2 (05:52→23:40)
[2017-01-09] MEDS: FREE WATER PO SCH ×5 (08:00→23:40)
[2017-01-09] MEDS: PANTOPRAZOLE SOD 40 MG DELAYED RELEASE TAB PO SCH (08:10)
[2017-01-09] MEDS: ASPIRIN EC 81 MG TABEC PO SCH (08:11)
[2017-01-09] MEDS: DONEPEZIL HCL 5 MG TAB PO SCH (08:11)
[2017-01-09] MEDS: BETHANECHOL CHL 25 MG TAB PO SCH ×4 (08:11→21:03)
[2017-01-09] MEDS: ENOXAPARIN SODIUM 40 MG/0.4 ML SYRINGE SQ SCH (08:11)
[2017-01-09] MEDS: INSULIN ASPART SUPPLEMENTAL SCALE SQ SCH ×4 (08:12→21:00)
[2017-01-09] MEDS: SODIUM CHLORIDE 0.9% FLUSH 10 ML FLUSH IV FLUSH SCH ×2 (08:12→21:03)
[2017-01-09 09:34] LABS: BICARBONATE 25.5 MEQ/L (21.0-32.0); POTASSIUM 3.6 MEQ/L (3.5-5.1)
--- NOTE | 2017-01-09 09:50 | HHI.PR ---
Subjective Remarks in no distress. afebrile. awake and alert. denies pain. Objective Vitals Vital Signs Date Time Temp Pulse Resp B/P (MAP) Pulse Ox O2 Delivery O2 Flow Rate FiO2 01/09/17 08:08 97.9 76 18 148/67 (94) 96 01/09/17 07:59 66 01/09/17 04:07 Room Air 01/09/17 04:00 98.6 59 18 142/67 (92) 94 01/09/17 00:47 Room Air 01/09/17 00:00 97.9 62 18 127/84 (98) 93 01/09/17 00:00 97.9 62 18 127/84 (98) 93 01/08/17 20:00 Room Air 01/08/17 20:00 83 01/08/17 20:00 97.4 101 20 138/63 (88) 95 01/08/17 16:00 98.4 90 18 129/58 (81) 100 01/08/17 12:00 98.6 83 18 146/67 (93) 99 I/O 01/08/17 01/08/17 01/08/17 01/09/17 01/09/17 01/09/17 07:00 15:00 23:00 07:00 15:00 23:00 Intake Total 1173 ml 650 ml 540 ml 780 ml Output Total 350 ml 1 ml 300 ml Balance 823 ml 649 ml 240 ml 780 ml Intake Oral 360 ml 300 ml 440 ml 120 ml IV Total 813 ml 350 ml 100 ml 660 ml Output Urine Total 350 ml 300 ml Stool Total 1 ml # Voids 1 5 2 # Bowel Movements 1 1 3 Result Diagram: 01/07/17 0340 01/09/17 0755 Imaging Last Impressions Brain MRI 01/07/17 0000 Signed Impressions: Service Date/Time: Saturday, January 07, 2017 08:56 - CONCLUSION: 1. Mild ventriculomegaly out of proportion for degree of volume loss with mild diffuse periventricular transependymal edema concerning for normal pressure hydrocephalus. Clinical correlation is recommended. 2. Otherwise, no acute abnormality. Rigoberto Reis MD Head CT 01/06/17 1410 Signed Impressions: Service Date/Time: Friday, January 06, 2017 15:36 - CONCLUSION: Increasing ventricular prominence. Nonspecific but can be seen with normal pressure hydrocephalus. Jose G. Miles, MD FACR Chest X-Ray 01/06/[id number] Signed Impressions: Service Date/Time: Friday, January 06, 2017 14:08 - CONCLUSION: 1. No acute cardiopulmonary disease. Abdiel Lerma MD CT Angiography [id number]/06/[id number] Signed Impressions: Service Date/Time: Friday, January 06, 2017 15:42 - CONCLUSION: 1. No evidence of pulmonary embolism. 2. Coronary artery calcifications. Abdiel Lerma MD Objective Remarks GENERAL: This is a well-nourished, well-developed patient, in no apparent distress. CARDIOVASCULAR: Regular rate and regular rhythm without murmurs, gallops, or rubs. RESPIRATORY: Clear to auscultation. Breath sounds equal bilaterally. No wheezes , rales, or rhonchi. GASTROINTESTINAL: Abdomen soft, non-tender, nondistended. Normal, active bowel sounds MUSCULOSKELETAL: Extremities without clubbing, cyanosis, or edema. NEURO: awake but confused. Medications and IVs Current Medications Aspirin (Aspirin Chew) 324 mg ONCE ONCE PO Last administered on 01/06/17 13: 50; Start 01/06/17 at 13:45; Stop 01/06/17 at 13:46; Status DC Sodium Chloride (NS Flush) 2 ml UNSCH PRN IVF FLUSH AFTER USING IV ACCESS; Start 01/06/17 at 13:45; Stop 01/07/17 at 00:49; Status DC Sodium Chloride 500 ml @ 500 mls/hr ONCE ONCE IV Last administered on 13:49; Start 01/06/17 at 13:45; Stop 01/06/17 at 15:42; Status DC Sodium Chloride 500 ml @ 500 mls/hr BOLUS ONCE IV Last administered on 14:45; Start 01/06/17 at 14:45; Stop 01/06/17 at 15:42; Status DC Potassium Chloride 100 ml @ 50 mls/hr Q2H IV Last administered on 01/06/17 16 :45; Start 01/06/17 at 14:45; Stop 01/06/17 at 18:44; Status DC Ceftriaxone Sodium 1000 mg/ Sodium Chloride 100 ml @ 200 mls/hr ONCE ONCE IV Last administered on 01/06/17 15:31; Start 01/06/17 at 15:30; Stop 01/06/17 at 15:59; Status DC Sodium Chloride (NS Flush) 2 ml UNSCH PRN IV FLUSH FLUSH AFTER USING IV ACCESS ; Start 01/06/17 at 15:45 Sodium Chloride (NS Flush) 2 ml BID IV FLUSH Last administered on 01/08/17 20: 47; Start 01/06/17 at 21:00 Naloxone HCl (Narcan Inj) 0.4 mg UNSCH PRN IV PUSH SEE LABEL COMMENTS; Start 01/06/17 at 15:45 Metoprolol Tartrate (Lopressor Inj) 2.5 mg ONCE ONCE IV PUSH Last administered on 01/06/17 16:08; Start 01/06/17 at 15:45; Stop 01/06/17 at 15:46 ; Status DC Iohexol (Omnipaque 350 Inj) 50 ml STK-MED ONCE IVCONTRAST Last administered on 01/06/17 15:45; Start 01/06/17 at 15:45; Stop 01/06/17 at 15:46; Status DC Potassium Bicarb/ Potassium Chloride (K-Lyte Cl Eff) 50 meq ONCE ONCE PO Last administered on 01/06/17 16:45; Start 01/06/17 at 16:45; Stop 01/06/17 at 18:00; Status DC Levofloxacin/ Dextrose 150 ml @ 100 mls/hr Q24H IV Last administered on 18:06; Start 01/06/17 at 18:00 Dextrose (D50w (Syr) Inj) 50 ml UNSCH PRN IV PUSH HYPOGLYCEMIA-SEE COMMENTS; Start 01/06/17 at 17:15; Stop 01/07/17 at 10:58; Status DC Glucagon (Glucagon Inj) 1 mg UNSCH PRN OTHER HYPOGLYCEMIA-SEE COMMENTS; Start 01/06/17 at 17:15; Stop 01/07/17 at 10:58; Status DC Water (Free Water) 200 ml Q4HR PO Last administered on 01/08/17 03:52; Start 01/06/17 at 20:00 Dextrose 1,000 ml @ 60 mls/hr [id number] IV Last administered on 01/09/17 05:52 ; Start 01/06/17 at 20:00 Potassium Bicarb/ Potassium Chloride (K-Lyte Cl Eff) 50 meq ONCE ONCE PO Last administered on 01/06/17 20:55; Start 01/06/17 at 20:00; Stop 01/06/17 at 20:01; Status DC Enoxaparin Sodium (Lovenox Inj) 40 mg Q24H SQ Last administered on 01/09/17 08 :11; Start 01/07/17 at 09:00 Metoprolol Tartrate (Lopressor) 12.5 mg ONCE ONCE PO Last administered on 01/07 00:58; Start 01/07/17 at 00:45; Stop 01/07/17 at 00:48; Status DC Dextrose (D50w (Vial) Inj) 50 ml UNSCH PRN IV PUSH HYPOGLYCEMIA-SEE COMMENTS; Start 01/07/17 at 09:30 Glucagon (Glucagon Inj) 1 mg UNSCH PRN OTHER HYPOGLYCEMIA-SEE COMMENTS; Start 01/07/17 at 09:30 Insulin Aspart (NovoLOG SUPPLEMENTAL SCALE) 1 ACHS SLIDING SCALE SQ Last administered on 01/09/17 08:12; Start 01/07/17 at 12:00 Aspirin (Ecotrin Ec) 81 mg DAILY PO Last administered on 01/09/17 08:11; Start 01/08/17 at 09:00 Atorvastatin Calcium (Lipitor) 40 mg HS PO Last administered on 01/08/17 20:47 ; Start 01/07/17 at 21:00 Bethanechol Chloride (Urecholine) 12.5 mg QID PO Last administered on 08:11; Start 01/07/17 at 13:00 Donepezil HCl (Aricept) 5 mg DAILY PO Last administered on 01/09/17 08:11; Start 01/08/17 at 09:00 Sucralfate (Carafate Liq) 1 gm TID@0600,1100,1600 PO Last administered on 05:20; Start 01/07/17 at 11:30 Pantoprazole Sodium (Protonix) 40 mg DAILY PO Last administered on 01/09/17 08 :10; Start 01/08/17 at 09:00 Miscellaneous (Pill Splitter) 1 ea UNSCH PRN OTHER SEE LABEL COMMENTS; Start 01/07/17 at 11:15 Potassium Chloride (KCl) 30 meq ONCE ONCE PO Last administered on 01/08/17 12 :38; Start 01/08/17 at 10:30; Stop 01/08/17 at 10:39; Status DC Potassium Chloride (KCl) 30 meq ONCE ONCE PO Last administered on 01/08/17 15 :10; Start 01/08/17 at 14:00; Stop 01/08/17 at 14:01; Status DC A/P Assessment and Plan A/P Acute encephalopathy- possibly due to dehydration , UTI continue with neuro-checks- continue IV fluid and antibiotics- possible NPH MRI brain with possible NPH- neurology and neurosurgery evaluation appreciated; trial of Lumbar drain. Hypernatremia- resolved- continue gentle IV hydration. Hypokalemia-replaced. Sinus tachycardia- due to dehydration-improved- continue to monitor nonspecific elevation of troponin- no chest pain- likely due to tachycardia- UTI with e-coli- on antibiotic- HTN- hold BP meds- will monitor for now. DM- accu-check with SSI. elevates TSH on presentation- will repeat the level today. History of H. pylori gastritis; continue home meds DVT prophylaxis with subq Lovenox PT consulted. Discharge Planning dc planning to SNF- pending neurosurgery evaluation. Melanie Mcnair MD Jan 09, 2017 09:50
--- NOTE | 2017-01-09 15:54 | HHI.NSPN ---
Note Status Status: Progress Note Interval History Diagnosis Possible NPH Interval History Ms. Matthew is an 81 year-old female who is a very poor historian with no family at bedside. Her medical history is obtained partly from the patient and mainly from the medical records. She lives with her daughter who has Down syndrome and takes care of her daughter and a daughter has a implementation analyst who cooks for both the mother and the daughter. The family members think that she has not been doing well for several months and she was diagnosed with dementia and she has been shaking of the past several months. She was recently treated by her PCP for dehydration and received IV fluids and had a UTI in November. The patient was also noted to be in sinus tachycardia with a heart rate of 180.. CT of the brain showed ventriculomegaly. Neurosurgical consultation was requested 01/09. Remains confused at baseline. Family at bedside. Labs, Micro, & Vital Signs Results Date Time Temp Pulse Resp B/P (MAP) Pulse Ox O2 Delivery O2 Flow Rate FiO2 01/09/17 12:08 97.6 84 18 129/58 (81) 99 01/09/17 08:08 97.9 76 18 148/67 (94) 96 01/09/17 08:00 Room Air 01/09/17 07:59 66 01/09/17 04:07 Room Air 01/09/17 04:00 98.6 59 18 142/67 (92) 94 01/09/17 00:47 Room Air 01/09/17 00:00 97.9 62 18 127/84 (98) 93 01/09/17 00:00 97.9 62 18 127/84 (98) 93 01/08/17 20:00 Room Air 01/08/17 20:00 83 01/08/17 20:00 97.4 101 20 138/63 (88) 95 01/08/17 16:00 98.4 90 18 129/58 (81) 100 Constitutional Vital Signs Date Time Temp Pulse Resp B/P (MAP) Pulse Ox O2 Delivery O2 Flow Rate FiO2 01/09/17 12:08 97.6 84 18 129/58 (81) 99 01/09/17 08:08 97.9 76 18 148/67 (94) 96 01/09/17 08:00 Room Air 01/09/17 07:59 66 01/09/17 04:07 Room Air 01/09/17 04:00 98.6 59 18 142/67 (92) 94 01/09/17 00:47 Room Air 01/09/17 00:00 97.9 62 18 127/84 (98) 93 01/09/17 00:00 97.9 62 18 127/84 (98) 93 01/08/17 20:00 Room Air 01/08/17 20:00 83 01/08/17 20:00 97.4 101 20 138/63 (88) 95 01/08/17 16:00 98.4 90 18 129/58 (81) 100 Physical Exam MS matthew is alert, confused, oriented to self, not place, not time, impaired short-term memory and recall. She knows the name of the president. Speech fluent Cranial nerve examination demonstrates the pupils to be equal, round, and reactive to light. Extra-ocular movements are intact with normal convergence. Facial motor function appears normal and symmetrical. Face sensation, hearing, visual grubbs, and olfaction can not be assessed properly due to the patients condition. The patient has an intact corneal reflex and a gag reflex. Sternocleidomastoid and trapezius have normal and symmetrical strength. Other cranial nerves are intact. Neck is soft and supple. Cervical spine has a normal range of motion of the cervical spine without pain. There is no tenderness to palpation to the spinous processes or paraspinal muscles. Muscle testing reveals normal bulk and tone overall without rigidity, spasticity , fasciculations, or atrophy. Resting tremor. Muscle strength is 5/5 in all muscle groups of both upper and lower extremities. Deep tendon reflexes are 1+ and symmetrical in the biceps, triceps, and brachioradialis, bilaterally, in the upper extremities. In the lower extremities , the patellar and Achilles are 1+, bilaterally. There is a bilateral plantar flexion response. Hoffmanns sign is negative. There is no clonus or other abnormal reflexes noted. Cerebellar examination is limited due to the patient condition, but no obvious deficits are noted. Medications Current Medications Current Medications Aspirin (Aspirin Chew) 324 mg ONCE ONCE PO Last administered on 01/06/17t 13: 50; Start 01/06/17 at 13:45; Stop 01/06/17 at 13:46; Status DC Sodium Chloride (NS Flush) 2 ml UNSCH PRN IVF FLUSH AFTER USING IV ACCESS; Start 01/06/17 at 13:45; Stop 01/07/17 at 00:49; Status DC Sodium Chloride 500 ml @ 500 mls/hr ONCE ONCE IV Last administered on 13:49; Start 01/06/17 at 13:45; Stop 01/06/17 at 15:42; Status DC Sodium Chloride 500 ml @ 500 mls/hr BOLUS ONCE IV Last administered on 14:45; Start 01/06/17 at 14:45; Stop 01/06/17 at 15:42; Status DC Potassium Chloride 100 ml @ 50 mls/hr Q2H IV Last administered on 01/06/17 16 :45; Start 01/06/17 at 14:45; Stop 01/06/17 at 18:44; Status DC Ceftriaxone Sodium 1000 mg/ Sodium Chloride 100 ml @ 200 mls/hr ONCE ONCE IV Last administered on 01/06/17 15:31; Start 01/06/17 at 15:30; Stop 01/06/17 at 15:59; Status DC Sodium Chloride (NS Flush) 2 ml UNSCH PRN IV FLUSH FLUSH AFTER USING IV ACCESS ; Start 01/06/17 at 15:45 Sodium Chloride (NS Flush) 2 ml BID IV FLUSH Last administered on 01/08/17 20: 47; Start 01/06/17 at 21:00 Naloxone HCl (Narcan Inj) 0.4 mg UNSCH PRN IV PUSH SEE LABEL COMMENTS; Start 01/06/17 at 15:45 Metoprolol Tartrate (Lopressor Inj) 2.5 mg ONCE ONCE IV PUSH Last administered on 01/06/17 16:08; Start 01/06/17 at 15:45; Stop 01/06/17 at 15:46 ; Status DC Iohexol (Omnipaque 350 Inj) 50 ml STK-MED ONCE IVCONTRAST Last administered on 01/06/17 15:45; Start 01/06/17 at 15:45; Stop 01/06/17 at 15:46; Status DC Potassium Bicarb/ Potassium Chloride (K-Lyte Cl Eff) 50 meq ONCE ONCE PO Last administered on 01/06/17 16:45; Start 01/06/17 at 16:45; Stop 01/06/17 at 18:00; Status DC Levofloxacin/ Dextrose 150 ml @ 100 mls/hr Q24H IV Last administered on 18:06; Start 01/06/17 at 18:00 Dextrose (D50w (Syr) Inj) 50 ml UNSCH PRN IV PUSH HYPOGLYCEMIA-SEE COMMENTS; Start 01/06/17 at 17:15; Stop 01/07/17 at 10:58; Status DC Glucagon (Glucagon Inj) 1 mg UNSCH PRN OTHER HYPOGLYCEMIA-SEE COMMENTS; Start 01/06/17 at 17:15; Stop 01/07/17 at 10:58; Status DC Water (Free Water) 200 ml Q4HR PO Last administered on 01/08/17 03:52; Start 01/06/17 at 20:00 Dextrose 1,000 ml @ 60 mls/hr [id number] IV Last administered on 01/09/17 05:52 ; Start 01/06/17 at 20:00 Potassium Bicarb/ Potassium Chloride (K-Lyte Cl Eff) 50 meq ONCE ONCE PO Last administered on 01/06/17 20:55; Start 01/06/17 at 20:00; Stop 01/06/17 at 20:01; Status DC Enoxaparin Sodium (Lovenox Inj) 40 mg Q24H SQ Last administered on 01/09/17 08 :11; Start 01/07/17 at 09:00; Status Future Hold Metoprolol Tartrate (Lopressor) 12.5 mg ONCE ONCE PO Last administered on 01/07 00:58; Start 01/07/17 at 00:45; Stop 01/07/17 at 00:48; Status DC Dextrose (D50w (Vial) Inj) 50 ml UNSCH PRN IV PUSH HYPOGLYCEMIA-SEE COMMENTS; Start 01/07/17 at 09:30 Glucagon (Glucagon Inj) 1 mg UNSCH PRN OTHER HYPOGLYCEMIA-SEE COMMENTS; Start 01/07/17 at 09:30 Insulin Aspart (NovoLOG SUPPLEMENTAL SCALE) 1 ACHS SLIDING SCALE SQ Last administered on 01/09/17 12:14; Start 01/07/17 at 12:00 Aspirin (Ecotrin Ec) 81 mg DAILY PO Last administered on 01/09/17 08:11; Start 01/08/17 at 09:00; Status Future Hold Atorvastatin Calcium (Lipitor) 40 mg HS PO Last administered on 01/08/17 20:47 ; Start 01/07/17 at 21:00 Bethanechol Chloride (Urecholine) 12.5 mg QID PO Last administered on 12:13; Start 01/07/17 at 13:00 Donepezil HCl (Aricept) 5 mg DAILY PO Last administered on 01/09/17 08:11; Start 01/08/17 at 09:00 Sucralfate (Carafate Liq) 1 gm TID@0600,1100,1600 PO Last administered on 12:13; Start 01/07/17 at 11:30 Pantoprazole Sodium (Protonix) 40 mg DAILY PO Last administered on 01/09/17 08 :10; Start 01/08/17 at 09:00 Miscellaneous (Pill Splitter) 1 ea UNSCH PRN OTHER SEE LABEL COMMENTS; Start 01/07/17 at 11:15 Potassium Chloride (KCl) 30 meq ONCE ONCE PO Last administered on 01/08/17 12 :38; Start 01/08/17 at 10:30; Stop 01/08/17 at 10:39; Status DC Potassium Chloride (KCl) 30 meq ONCE ONCE PO Last administered on 01/08/17 15 :10; Start 01/08/17 at 14:00; Stop 01/08/17 at 14:01; Status DC Plan Plan Remarks Caprini VTE Risk Assessment: Mod/High Risk (score >= 2) Caprini Risk Assessment Model Point Value = 1 Point Value = 2 Point Value = 3 Point Value = 5 Age 41-60 Minor surgery BMI > 25 kg/m2 Swollen legs Varicose veins or History of unexplained or recurrent spontaneous Oral contraceptives or hormone replacement Sepsis (< 1 month) Serious lung disease, including pneumonia (< 1 month) Abnormal pulmonary function Acute myocardial infarction Congestive heart failure (< 1 month) History of inflammatory bowel disease Medical patient at bed rest Age 61-74 Arthroscopic surgery Major open surgery (> 45 min) Laparoscopic surgery (> 45 min) Malignancy Confined to bed (> 72 hours) Immobilizing plaster cast Central venous access Age >= 75 History of VTE Family history of VTE Factor V Leiden Prothrombin [id number] Lupus anticoagulant Anticardiolipin antibodies Elevated serum homocysteine Heparin-induced thrombocytopenia Other congenital or acquired thrombophilia Stroke (< 1 month) Elective arthroplasty Hip, pelvis, or leg fracture Acute spinal cord injury (< 1 month) Prophylaxis Regimen Total Risk Factor Score Risk Level Prophylaxis Regimen 0-1 Low Early ambulation 2 Moderate Order ONE of the following: *Sequential Compression Device (SCD) *Heparin 5000 units SQ BID 3-4 Higher Order ONE of the following medications: *Heparin 5000 units SQ TID *Enoxaparin/Lovenox 40 mg SQ daily (WT < 150 kg, CrCl > 30 mL/min) *Enoxaparin/Lovenox 30 mg SQ daily (WT < 150 kg, CrCl > 10-29 mL/min) *Enoxaparin/Lovenox 30 mg SQ BID (WT < 150 kg, CrCl > 30 mL/min) AND/OR *Sequential Compression Device (SCD) 5 or more Highest Order ONE of the following medications: *Heparin 5000 units SQ TID (Preferred with Epidurals) *Enoxaparin/Lovenox 40 mg SQ daily (WT < 150 kg, CrCl > 30 mL/min) *Enoxaparin/Lovenox 30 mg SQ daily (WT < 150 kg, CrCl > 10-29 mL/min) *Enoxaparin/Lovenox 30 mg SQ BID (WT < 150 kg, CrCl > 30 mL/min) AND *Sequential Compression Device (SCD) Attending Statement Continue neuro checks. I recommend a trial of drainage viia a lumbar spinal drain, with PT and neurology assessment. Family is at the bedside. I discussed with them the pros and cons placing a lumbar spinal drain, indications alternatives risks. If the patient benefit by drainage of cerebral spinal fluid she could be a candidate for placement of permanent ventriculoperitoneal shunt Pulmonary continue.aggressive pulmonary toilette, nasotracheal suction, and breathing treatments with nebulizers. Renal. Continue to monitor closely urine output, BUN and creatinine Endocrine. Continue to Monitor serial Acu checks and SSI as needed in detail ID continue to monitor for signs of infection Continue Protonix for stress ulcer prophylaxis Continue Octavio hose and SCD's for DVT prophylaxis. Jose L Taveras MD Jan 09, 2017 15:54
[2017-01-09] MEDS: LEVOFLOXACIN 750 MG PREMIX INJ 150 ML IV SCH (17:50)
[2017-01-09] MEDS: ATORVASTATIN 40 MG TAB PO SCH (21:03)
[2017-01-10] VITALS (8 sets, daily range): BP systolic 115–141; BP diastolic 55–72; PULSE 68–113; RESP 18–20; TEMP 97.5–99; O2SAT 94–100
[2017-01-10] MEDS: FREE WATER PO SCH ×5 (02:19→20:00)
[2017-01-10] MEDS: SUCRALFATE 1 GM/10 ML CUP PO SCH ×3 (05:25→16:02)
[2017-01-10] MEDS: INSULIN ASPART SUPPLEMENTAL SCALE SQ SCH ×4 (07:52→21:00)
[2017-01-10] MEDS: PANTOPRAZOLE SOD 40 MG DELAYED RELEASE TAB PO SCH (08:01)
[2017-01-10] MEDS: BETHANECHOL CHL 25 MG TAB PO SCH ×4 (08:01→20:28)
[2017-01-10] MEDS: DONEPEZIL HCL 5 MG TAB PO SCH (08:01)
[2017-01-10] MEDS: SODIUM CHLORIDE 0.9% FLUSH 10 ML FLUSH IV FLUSH SCH ×2 (08:01→20:28)
--- NOTE | 2017-01-10 08:12 | HHI.PR ---
Subjective Remarks in no acute distress. denies pain. no fever. no new complaints. d/w the RN. Objective Vitals Vital Signs Date Time Temp Pulse Resp B/P (MAP) Pulse Ox O2 Delivery O2 Flow Rate FiO2 01/10/17 04:00 97.9 68 18 123/72 (89) 94 01/10/17 00:00 97.5 113 18 124/57 (79) 100 01/09/17 20:00 Room Air 01/09/17 20:00 86 01/09/17 16:08 97.8 89 18 123/58 (79) 100 01/09/17 16:00 Room Air 01/09/17 12:08 97.6 84 18 129/58 (81) 99 01/09/17 12:00 Room Air I/O 01/09/17 01/09/17 01/09/17 01/10/17 01/10/17 01/10/17 07:00 15:00 23:00 07:00 15:00 23:00 Intake Total 780 ml 280 ml 120 ml Output Total 300 ml Balance 780 ml 280 ml -180 ml Intake Oral 120 ml 280 ml 120 ml IV Total 660 ml Output Urine Total 300 ml # Voids 2 4 2 # Bowel Movements 3 1 2 Result Diagram: 01/07/17 0340 01/09/17 0755 Imaging Last Impressions Brain MRI 01/07/17 0000 Signed Impressions: Service Date/Time: Saturday, January 07, 2017 08:56 - CONCLUSION: 1. Mild ventriculomegaly out of proportion for degree of volume loss with mild diffuse periventricular transependymal edema concerning for normal pressure hydrocephalus. Clinical correlation is recommended. 2. Otherwise, no acute abnormality. Rigoberto Reis MD Head CT 01/06/17 1410 Signed Impressions: Service Date/Time: Friday, January 06, 2017 15:36 - CONCLUSION: Increasing ventricular prominence. Nonspecific but can be seen with normal pressure hydrocephalus. Jose Moreno MD FACR Chest X-Ray 01/06/[id number] Signed Impressions: Service Date/Time: Friday, January 06, 2017 14:08 - CONCLUSION: 1. No acute cardiopulmonary disease. Abdiel Lerma MD CT Angiography [id number]/06/[id number] Signed Impressions: Service Date/Time: Sung, January 06, 2017 15:42 - CONCLUSION: 1. No evidence of pulmonary embolism. 2. Coronary artery calcifications. Abdiel Lerma MD Objective Remarks GENERAL: This is a well-nourished, well-developed patient, in no apparent distress. CARDIOVASCULAR: Regular rate and regular rhythm without murmurs, gallops, or rubs. RESPIRATORY: Clear to auscultation. Breath sounds equal bilaterally. No wheezes , rales, or rhonchi. GASTROINTESTINAL: Abdomen soft, non-tender, nondistended. Normal, active bowel sounds MUSCULOSKELETAL: Extremities without clubbing, cyanosis, or edema. NEURO: awake but confused. Medications and IVs Current Medications Aspirin (Aspirin Chew) 324 mg ONCE ONCE PO Last administered on 01/06/17 13: 50; Start 01/06/17 at 13:45; Stop 01/06/17 at 13:46; Status DC Sodium Chloride (NS Flush) 2 ml UNSCH PRN IVF FLUSH AFTER USING IV ACCESS; Start 01/06/17 at 13:45; Stop 01/07/17 at 00:49; Status DC Sodium Chloride 500 ml @ 500 mls/hr ONCE ONCE IV Last administered on 13:49; Start 01/06/17 at 13:45; Stop 01/06/17 at 15:42; Status DC Sodium Chloride 500 ml @ 500 mls/hr BOLUS ONCE IV Last administered on 14:45; Start 01/06/17 at 14:45; Stop 01/06/17 at 15:42; Status DC Potassium Chloride 100 ml @ 50 mls/hr Q2H IV Last administered on 01/06/17 16 :45; Start 01/06/17 at 14:45; Stop 01/06/17 at 18:44; Status DC Ceftriaxone Sodium 1000 mg/ Sodium Chloride 100 ml @ 200 mls/hr ONCE ONCE IV Last administered on 01/06/17 15:31; Start 01/06/17 at 15:30; Stop 01/06/17 at 15:59; Status DC Sodium Chloride (NS Flush) 2 ml UNSCH PRN IV FLUSH FLUSH AFTER USING IV ACCESS ; Start 01/06/17 at 15:45 Sodium Chloride (NS Flush) 2 ml BID IV FLUSH Last administered on 01/10/17 08: 01; Start 01/06/17 at 21:00 Naloxone HCl (Narcan Inj) 0.4 mg UNSCH PRN IV PUSH SEE LABEL COMMENTS; Start 01/06/17 at 15:45 Metoprolol Tartrate (Lopressor Inj) 2.5 mg ONCE ONCE IV PUSH Last administered on 01/06/17 16:08; Start 01/06/17 at 15:45; Stop 01/06/17 at 15:46 ; Status DC Iohexol (Omnipaque 350 Inj) 50 ml STK-MED ONCE IVCONTRAST Last administered on 01/06/17 15:45; Start 01/06/17 at 15:45; Stop 01/06/17 at 15:46; Status DC Potassium Bicarb/ Potassium Chloride (K-Lyte Cl Eff) 50 meq ONCE ONCE PO Last administered on 01/06/17 16:45; Start 01/06/17 at 16:45; Stop 01/06/17 at 18:00; Status DC Levofloxacin/ Dextrose 150 ml @ 100 mls/hr Q24H IV Last administered on 17:50; Start 01/06/17 at 18:00 Dextrose (D50w (Syr) Inj) 50 ml UNSCH PRN IV PUSH HYPOGLYCEMIA-SEE COMMENTS; Start 01/06/17 at 17:15; Stop 01/07/17 at 10:58; Status DC Glucagon (Glucagon Inj) 1 mg UNSCH PRN OTHER HYPOGLYCEMIA-SEE COMMENTS; Start 01/06/17 at 17:15; Stop 01/07/17 at 10:58; Status DC Water (Free Water) 200 ml Q4HR PO Last administered on 01/08/17 03:52; Start 01/06/17 at 20:00 Dextrose 1,000 ml @ 60 mls/hr [id number] IV Last administered on 01/09/17 23:40 ; Start 01/06/17 at 20:00 Potassium Bicarb/ Potassium Chloride (K-Lyte Cl Eff) 50 meq ONCE ONCE PO Last administered on 01/06/17 20:55; Start 01/06/17 at 20:00; Stop 01/06/17 at 20:01; Status DC Enoxaparin Sodium (Lovenox Inj) 40 mg Q24H SQ Last administered on 01/09/17 08 :11; Start 01/07/17 at 09:00; Status Future Hold Metoprolol Tartrate (Lopressor) 12.5 mg ONCE ONCE PO Last administered on 01/07 00:58; Start 01/07/17 at 00:45; Stop 01/07/17 at 00:48; Status DC Dextrose (D50w (Vial) Inj) 50 ml UNSCH PRN IV PUSH HYPOGLYCEMIA-SEE COMMENTS; Start 01/07/17 at 09:30 Glucagon (Glucagon Inj) 1 mg UNSCH PRN OTHER HYPOGLYCEMIA-SEE COMMENTS; Start 01/07/17 at 09:30 Insulin Aspart (NovoLOG SUPPLEMENTAL SCALE) 1 ACHS SLIDING SCALE SQ Last administered on 01/09/17 17:51; Start 01/07/17 at 12:00 Aspirin (Ecotrin Ec) 81 mg DAILY PO Last administered on 01/09/17 08:11; Start 01/08/17 at 09:00; Status Future Hold Atorvastatin Calcium (Lipitor) 40 mg HS PO Last administered on 01/09/17 21:03 ; Start 01/07/17 at 21:00 Bethanechol Chloride (Urecholine) 12.5 mg QID PO Last administered on 08:01; Start 01/07/17 at 13:00 Donepezil HCl (Aricept) 5 mg DAILY PO Last administered on 01/10/17 08:01; Start 01/08/17 at 09:00 Sucralfate (Carafate Liq) 1 gm TID@0600,1100,1600 PO Last administered on 05:25; Start 01/07/17 at 11:30 Pantoprazole Sodium (Protonix) 40 mg DAILY PO Last administered on 01/10/17 08 :01; Start 01/08/17 at 09:00 Miscellaneous (Pill Splitter) 1 ea UNSCH PRN OTHER SEE LABEL COMMENTS; Start 01/07/17 at 11:15 Potassium Chloride (KCl) 30 meq ONCE ONCE PO Last administered on 01/08/17 12 :38; Start 01/08/17 at 10:30; Stop 01/08/17 at 10:39; Status DC Potassium Chloride (KCl) 30 meq ONCE ONCE PO Last administered on 01/08/17 15 :10; Start 01/08/17 at 14:00; Stop 01/08/17 at 14:01; Status DC A/P Assessment and Plan A/P Acute encephalopathy- possibly due to dehydration , UTI- seems to be improving continue with neuro-checks- continue IV fluid and antibiotics- possible NPH MRI brain with possible NPH- neurology and neurosurgery evaluation appreciated; trial of Lumbar drain; IR consulted. Hypernatremia- resolved- continue gentle IV hydration. Hypokalemia-replaced. Sinus tachycardia- due to dehydration-improved- continue to monitor nonspecific elevation of troponin- no chest pain- likely due to tachycardia- UTI with e-coli- on antibiotic- HTN-BP controlled- hold BP meds- will monitor for now. DM- accu-check with SSI. elevates TSH - check free T4 History of H. pylori gastritis; continue home meds DVT prophylaxis with subq Lovenox ( on hold for planned procedure). PT consulted. Discharge Planning pending lumbar drain placement/when cleared by neurology and neurosurgery . Melanie Mcnair MD Jan 10, 2017 08:12
[2017-01-10] MEDS: SODIUM CHLOR 0.9% 1000 ML INJ 1,000 ML IV SCH (10:03)
--- NOTE | 2017-01-10 15:07 | HHI.NSPN ---
(Maya Schreiber) Note Status Status: Progress Note (Maya Schreiber) Interval History Interval History Ms. Matthew is an 81 year-old female who is a very poor historian with no family at bedside. Her medical history is obtained partly from the patient and mainly from the medical records. She lives with her daughter who has Down syndrome and takes care of her daughter and a daughter has a hydro plant technician who cooks for both the mother and the daughter. The family members think that she has not been doing well for several months and she was diagnosed with dementia and she has been shaking of the past several months. She was recently treated by her PCP for dehydration and received IV fluids and had a UTI in November. The patient was also noted to be in sinus tachycardia with a heart rate of 180.. CT of the brain showed ventriculomegaly. Neurosurgical consultation was requested 01/09. Remains confused at baseline. Family at bedside. 01/10: awaiting lumbar drain as patient was given aspirin yesterday. (Maya Schreiber) Labs, Micro, & Vital Signs Results Date Time Temp Pulse Resp B/P (MAP) Pulse Ox O2 Delivery O2 Flow Rate FiO2 01/10/17 12:00 98.1 85 18 141/62 (88) 97 01/10/17 08:00 Room Air 01/10/17 08:00 98.3 85 18 123/59 (80) 99 01/10/17 07:45 89 01/10/17 04:00 97.9 68 18 123/72 (89) 94 01/10/17 00:00 97.5 113 18 124/57 (79) 100 01/09/17 20:00 Room Air 01/09/17 20:00 86 01/09/17 16:08 97.8 89 18 123/58 (79) 100 01/09/17 16:00 Room Air 01/11/17 07:00 Intake Total 187 ml Balance 187 ml Constitutional Vital Signs Date Time Temp Pulse Resp B/P (MAP) Pulse Ox O2 Delivery O2 Flow Rate FiO2 01/10/17 12:00 98.1 85 18 141/62 (88) 97 01/10/17 08:00 Room Air 01/10/17 08:00 98.3 85 18 123/59 (80) 99 01/10/17 07:45 89 01/10/17 04:00 97.9 68 18 123/72 (89) 94 01/10/17 00:00 97.5 113 18 124/57 (79) 100 01/09/17 20:00 Room Air 01/09/17 20:00 86 01/09/17 16:08 97.8 89 18 123/58 (79) 100 01/09/17 16:00 Room Air 01/11/17 07:00 Intake Total 187 ml Balance 187 ml (Maya Schreiber) Physical Exam Ms Matthew is alert, confused, being fed her lunch. Cranial nerve examination: pupils equal, round, and reactive to light. Facial motor function appears symmetrical. Neck is soft and supple. Motor: Resting tremors. Moves both upper and lower extremities. Cerebellar examination is limited due to the patient condition (Maya Schreiber) Ms Matthew is alert, confused, being fed her lunch. Cranial nerve examination: pupils equal, round, and reactive to light. Facial motor function appears symmetrical. Neck is soft and supple. Motor: Resting tremors. Moves both upper and lower extremities. Cerebellar examination is limited due to the patient condition (Jose L Taveras MD) Medications Current Medications Current Medications Medications (Trade) Dose Ordered Sig/Jordan Route PRN Reason Start Time Stop Time Status Last Admin Dose Admin Sodium Chloride (NS Flush) 2 ml UNSCH PRN IV FLUSH FLUSH AFTER USING IV ACCESS 01/06/17 15:45 Sodium Chloride (NS Flush) 2 ml BID IV FLUSH 01/06/17 21:00 01/10/17 08:01 Naloxone HCl (Narcan Inj) 0.4 mg UNSCH PRN IV PUSH SEE LABEL COMMENTS 01/06/17 15:45 Levofloxacin/ Dextrose 150 ml @ 100 mls/hr Q24H IV 01/06/17 18:00 01/09/17 17:50 Water (Free Water) 200 ml Q4HR PO 01/06/17 20:00 01/08/17 03:52 Enoxaparin Sodium (Lovenox Inj) 40 mg Q24H SQ 01/07/17 09:00 Future Hold 01/09/17 08:11 Dextrose (D50w (Vial) Inj) 50 ml UNSCH PRN IV PUSH HYPOGLYCEMIA-SEE COMMENTS 01/07/17 09:30 Glucagon (Glucagon Inj) 1 mg UNSCH PRN OTHER HYPOGLYCEMIA-SEE COMMENTS 01/07/17 09:30 Insulin Aspart (NovoLOG SUPPLEMENTAL SCALE) 1 ACHS SLIDING SCALE SQ 01/07/17 12:00 01/09/17 17:51 Aspirin (Ecotrin Ec) 81 mg DAILY PO 01/08/17 09:00 Future Hold 01/09/17 08:11 Atorvastatin Calcium (Lipitor) 40 mg HS PO 01/07/17 21:00 01/09/17 21:03 Bethanechol Chloride (Urecholine) 12.5 mg QID PO 01/07/17 13:00 01/10/17 13:51 Donepezil HCl (Aricept) 5 mg DAILY PO 01/08/17 09:00 01/10/17 08:01 Sucralfate (Carafate Liq) 1 gm TID@0600,1100,1600 PO 01/07/17 11:30 01/10/17 10:03 Pantoprazole Sodium (Protonix) 40 mg DAILY PO 01/08/17 09:00 01/10/17 08:01 Miscellaneous (Pill Splitter) 1 ea UNSCH PRN OTHER SEE LABEL COMMENTS 01/07/17 11:15 Sodium Chloride 1,000 ml @ 60 mls/hr [id number] IV 01/10/17 08:00 01/10/17 10:03 (Maya Schreiber) Current Medications Current Medications Aspirin (Aspirin Chew) 324 mg ONCE ONCE PO Last administered on 01/06/17 13: 50; Start 01/06/17 at 13:45; Stop 01/06/17 at 13:46; Status DC Sodium Chloride (NS Flush) 2 ml UNSCH PRN IVF FLUSH AFTER USING IV ACCESS; Start 01/06/17 at 13:45; Stop 01/07/17 at 00:49; Status DC Sodium Chloride 500 ml @ 500 mls/hr ONCE ONCE IV Last administered on 13:49; Start 01/06/17 at 13:45; Stop 01/06/17 at 15:42; Status DC Sodium Chloride 500 ml @ 500 mls/hr BOLUS ONCE IV Last administered on 14:45; Start 01/06/17 at 14:45; Stop 01/06/17 at 15:42; Status DC Potassium Chloride 100 ml @ 50 mls/hr Q2H IV Last administered on 01/06/17 16 :45; Start 01/06/17 at 14:45; Stop 01/06/17 at 18:44; Status DC Ceftriaxone Sodium 1000 mg/ Sodium Chloride 100 ml @ 200 mls/hr ONCE ONCE IV Last administered on 01/06/17 15:31; Start 01/06/17 at 15:30; Stop 01/06/17 at 15:59; Status DC Sodium Chloride (NS Flush) 2 ml UNSCH PRN IV FLUSH FLUSH AFTER USING IV ACCESS ; Start 01/06/17 at 15:45 Sodium Chloride (NS Flush) 2 ml BID IV FLUSH Last administered on 01/10/17 20: 28; Start 01/06/17 at 21:00 Naloxone HCl (Narcan Inj) 0.4 mg UNSCH PRN IV PUSH SEE LABEL COMMENTS; Start 01/06/17 at 15:45 Metoprolol Tartrate (Lopressor Inj) 2.5 mg ONCE ONCE IV PUSH Last administered on 01/06/17 16:08; Start 01/06/17 at 15:45; Stop 01/06/17 at 15:46 ; Status DC Iohexol (Omnipaque 350 Inj) 50 ml STK-MED ONCE IVCONTRAST Last administered on 01/06/17 15:45; Start 01/06/17 at 15:45; Stop 01/06/17 at 15:46; Status DC Potassium Bicarb/ Potassium Chloride (K-Lyte Cl Eff) 50 meq ONCE ONCE PO Last administered on 01/06/17 16:45; Start 01/06/17 at 16:45; Stop 01/06/17 at 18:00; Status DC Levofloxacin/ Dextrose 150 ml @ 100 mls/hr Q24H IV Last administered on 18:06; Start 01/06/17 at 18:00 Dextrose (D50w (Syr) Inj) 50 ml UNSCH PRN IV PUSH HYPOGLYCEMIA-SEE COMMENTS; Start 01/06/17 at 17:15; Stop 01/07/17 at 10:58; Status DC Glucagon (Glucagon Inj) 1 mg UNSCH PRN OTHER HYPOGLYCEMIA-SEE COMMENTS; Start 01/06/17 at 17:15; Stop 01/07/17 at 10:58; Status DC Water (Free Water) 200 ml Q4HR PO Last administered on 01/08/17 03:52; Start 01/06/17 at 20:00; Stop 01/11/17 at 13:27; Status DC Dextrose 1,000 ml @ 60 mls/hr [id number] IV Last administered on 01/09/17 23:40 ; Start 01/06/17 at 20:00; Stop 01/10/17 at 08:11; Status DC Potassium Bicarb/ Potassium Chloride (K-Lyte Cl Eff) 50 meq ONCE ONCE PO Last administered on 01/06/17 20:55; Start 01/06/17 at 20:00; Stop 01/06/17 at 20:01; Status DC Enoxaparin Sodium (Lovenox Inj) 40 mg Q24H SQ Last administered on 01/09/17 08 :11; Start 01/07/17 at 09:00; Status Future Hold Metoprolol Tartrate (Lopressor) 12.5 mg ONCE ONCE PO Last administered on 01/07 00:58; Start 01/07/17 at 00:45; Stop 01/07/17 at 00:48; Status DC Dextrose (D50w (Vial) Inj) 50 ml UNSCH PRN IV PUSH HYPOGLYCEMIA-SEE COMMENTS; Start 01/07/17 at 09:30 Glucagon (Glucagon Inj) 1 mg UNSCH PRN OTHER HYPOGLYCEMIA-SEE COMMENTS; Start 01/07/17 at 09:30 Insulin Aspart (NovoLOG SUPPLEMENTAL SCALE) 1 ACHS SLIDING SCALE SQ Last administered on 01/09/17 17:51; Start 01/07/17 at 12:00 Aspirin (Ecotrin Ec) 81 mg DAILY PO Last administered on 01/09/17 08:11; Start 01/08/17 at 09:00; Status Future Hold Atorvastatin Calcium (Lipitor) 40 mg HS PO Last administered on 01/10/17 20:29 ; Start 01/07/17 at 21:00 Bethanechol Chloride (Urecholine) 12.5 mg QID PO Last administered on 12:38; Start 01/07/17 at 13:00 Donepezil HCl (Aricept) 5 mg DAILY PO Last administered on 01/11/17 08:29; Start 01/08/17 at 09:00 Sucralfate (Carafate Liq) 1 gm TID@0600,1100,1600 PO Last administered on 05:42; Start 01/07/17 at 11:30 Pantoprazole Sodium (Protonix) 40 mg DAILY PO Last administered on 01/11/17 08 :29; Start 01/08/17 at 09:00 Miscellaneous (Pill Splitter) 1 ea UNSCH PRN OTHER SEE LABEL COMMENTS; Start 01/07/17 at 11:15 Potassium Chloride (KCl) 30 meq ONCE ONCE PO Last administered on 01/08/17 12 :38; Start 01/08/17 at 10:30; Stop 01/08/17 at 10:39; Status DC Potassium Chloride (KCl) 30 meq ONCE ONCE PO Last administered on 01/08/17 15 :10; Start 01/08/17 at 14:00; Stop 01/08/17 at 14:01; Status DC Sodium Chloride 1,000 ml @ 60 mls/hr [id number] IV Last administered on 01:53; Start 01/10/17 at 08:00; Stop 01/11/17 at 13:27; Status DC Alprazolam (Xanax) 0.125 mg NOW ONCE PO Last administered on 01/11/17 00:31; Start 01/11/17 at 00:30; Stop 01/11/17 at 00:31; Status DC Methimazole (Tapazole) 5 mg Q12HR PO Last administered on 01/11/17 12:37; Start 01/11/17 at 10:30 Metoprolol Tartrate (Lopressor) 12.5 mg Q12HR PO Last administered on 12:38; Start 01/11/17 at 10:30 Potassium Chloride (KCl) 30 meq ONCE ONCE PO ; Start 01/11/17 at 14:00; Stop 01/11/17 at 14:01; Status DC (Jose L Taveras MD) Medical Decision Making MDM Remarks 81 y/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 I recommend a trial of drainage viia a lumbar spinal drain, with PT and neurology assessment. Family is at the bedside. I discussed with them the pros and cons placing a lumbar spinal drain, indications alternatives risks. If the patient benefit by drainage of cerebral spinal fluid she could be a candidate for placement of permanent ventriculoperitoneal shunt Pulmonary continue.aggressive pulmonary toilette, nasotracheal suction, and breathing treatments with nebulizers. Renal. Continue to monitor closely urine output, BUN and creatinine Endocrine. Continue to Monitor serial Acu checks and SSI as needed in detail ID continue to monitor for signs of infection Continue Protonix for stress ulcer prophylaxis Continue Octavio hose and SCD's for DVT prophylaxis. The exam, history, and the medical decision-making described in the above note were completed with the assistance of the mid-level provider. I reviewed and agree with the findings presented. I attest that I had a [id number] encounter with the patient on the same day, and personally performed and documented my assessment and findings in the medical record. (Jose L Taveras MD) Maya Schreiber Jan 10, 2017 15:07 Jose L Taveras MD Jan 11, 2017 16:54
[2017-01-10] MEDS: LEVOFLOXACIN 750 MG PREMIX INJ 150 ML IV SCH (18:06)
[2017-01-10] MEDS: ATORVASTATIN 40 MG TAB PO SCH (20:29)
[2017-01-11] VITALS (10 sets, daily range): BP systolic 136–149; BP diastolic 63–76; PULSE 75–123; RESP 16–20; TEMP 98–98.5; O2SAT 97–100
[2017-01-11] MEDS ORDERED: ALPRAZolam 0.25 MG TAB PO ONE (00:30)
[2017-01-11] MEDS: FREE WATER PO SCH ×4 (01:53→12:00)
[2017-01-11] MEDS: SODIUM CHLOR 0.9% 1000 ML INJ 1,000 ML IV SCH (01:53)
[2017-01-11] MEDS: SUCRALFATE 1 GM/10 ML CUP PO SCH ×3 (05:42→17:20)
[2017-01-11] MEDS: INSULIN ASPART SUPPLEMENTAL SCALE SQ SCH ×4 (08:00→21:00)
[2017-01-11] MEDS: BETHANECHOL CHL 25 MG TAB PO SCH ×4 (08:29→21:55)
[2017-01-11] MEDS: PANTOPRAZOLE SOD 40 MG DELAYED RELEASE TAB PO SCH (08:29)
[2017-01-11] MEDS: SODIUM CHLORIDE 0.9% FLUSH 10 ML FLUSH IV FLUSH SCH ×2 (08:29→21:57)
[2017-01-11] MEDS: DONEPEZIL HCL 5 MG TAB PO SCH (08:29)
[2017-01-11 09:14] LABS: AUTOMATED NEUTROPHIL # 6.1 TH/MM3 (1.8-7.7); BASOPHIL % 0.2 % (0.0-2.0); EOSINOPHIL # 0.3 TH/MM3 (0-0.4); EOSINOPHIL % 3.6 % (0.0-4.0); HEMATOCRIT 29.5 % (35.0-46.0); HEMO FLAGS DIFF FINAL; LYMPH % 17.3 % (9.0-44.0); LYMPHOCYTE # 1.5 TH/MM3 (1.0-4.8); MEAN CELL VOLUME 94.6 FL (80.0-100.0); MEAN CORPUSCULAR HEMOGLOBIN 31.9 PG (27.0-34.0); MEAN CORPUSCULAR HGB CONC 33.7 % (32.0-36.0); MONO % 9.2 % (0.0-8.0); NEUT % 69.7 % (16.0-70.0); PLATELET COUNT 131 TH/MM3 (150-450); RED BLOOD COUNT 3.12 MIL/MM3 (4.00-5.30); RED CELL DISTRIBUTION WIDTH 15.1 % (11.6-17.2); WHITE BLOOD COUNT 8.8 TH/MM3 (4.0-11.0)
--- NOTE | 2017-01-11 09:19 | HHI.PR ---
Review/Management Diagnosis 1. Dementia. 2. Encephalopathy may be related metabolic/electrolyte derangements/infectious etiology. 3. Tremor unlikely extrapyramidal tremor, more likely to be intention tremor. 4. Hypernatremia. 5. Hypokalemia. 6. Sinus tachycardia. 7. Diabetes mellitus. Plan - Neuro checks q4 hourly. - Continue supportive medical therapy. - Neurosurgery for evaluation and further management of normal pressure hydrocephalus. - DVT prophylaxis. - GI prophylaxis. - Discussed case with Dr. Andrade, neurosurgeon Diagnosis/Plan: Subjective Subjective Comments No acute events Sits at the bed side with RN No new complaints Awaiting lumbar drain Active Medications Current Medications Medications (Trade) Dose Ordered Sig/Jordan Route Start Time Stop Time Status Last Admin (NS Flush) 2 ml UNSCH PRN IV FLUSH 01/06/17 15:45 (NS Flush) 2 ml BID IV FLUSH 01/06/17 21:00 01/10/17 20:28 (Narcan Inj) 0.4 mg UNSCH PRN IV PUSH 01/06/17 15:45 Levofloxacin/ Dextrose 150 ml @ 100 mls/hr Q24H IV 01/06/17 18:00 01/10/17 18:06 (Free Water) 200 ml Q4HR PO 01/06/17 20:00 01/08/17 03:52 (Lovenox Inj) 40 mg Q24H SQ 01/07/17 09:00 Future Hold 01/09/17 08:11 (D50w (Vial) Inj) 50 ml UNSCH PRN IV PUSH 01/07/17 09:30 (Glucagon Inj) 1 mg UNSCH PRN OTHER 01/07/17 09:30 (NovoLOG SUPPLEMENTAL SCALE) 1 ACHS SLIDING SCALE SQ 01/07/17 12:00 01/09/17 17:51 (Ecotrin Ec) 81 mg DAILY PO 01/08/17 09:00 Future Hold 01/09/17 08:11 (Lipitor) 40 mg HS PO 01/07/17 21:00 01/10/17 20:29 (Urecholine) 12.5 mg QID PO 01/07/17 13:00 01/11/17 08:29 (Aricept) 5 mg DAILY PO 01/08/17 09:00 01/11/17 08:29 (Carafate Liq) 1 gm TID@0600,1100,1600 PO 01/07/17 11:30 01/11/17 05:42 (Protonix) 40 mg DAILY PO 01/08/17 09:00 01/11/17 08:29 (Pill Splitter) 1 ea UNSCH PRN OTHER 01/07/17 11:15 Sodium Chloride 1,000 ml @ 60 mls/hr [id number] IV 01/10/17 08:00 01/11/17 01:53 Allergies Allergies Coded Allergies ciprofloxacin (Verified Allergy, Severe, RASH, VOMITING, 11/29/16) Review of Systems All other ROS: ROS reviewed as documented in chart Exam I&O / VS Vital Signs Date Time Temp Pulse Resp B/P (MAP) Pulse Ox O2 Delivery O2 Flow Rate FiO2 01/11/17 08:00 98.3 109 18 144/65 (91) 99 01/11/17 04:00 98.2 110 18 141/63 (89) 97 01/11/17 00:00 98.4 123 20 139/70 (93) 100 01/10/17 20:00 Room Air 01/10/17 20:00 86 01/10/17 18:00 98.9 101 18 126/64 (84) 100 01/10/17 16:00 99.0 87 18 136/57 (83) 100 01/10/17 16:00 98.1 92 20 115/55 (75) 98 01/10/17 12:00 98.1 85 18 141/62 (88) 97 Exam Comments General: Pleasant, poor historian, shaking with tremor, mainly right upper and lower extremity. HEENT: Atraumatic, normocephalic. Intact hearing. Intact vision. Neck: Supple. No signs of meningeal irritation. Cardiovascular: Regular rate and rhythm. Respiratory: Clear to auscultation, no wheezes. Gastrointestinal: Soft abdomen, nontender. Musculoskeletal: No clubbing, no cyanosis. No edema. Neurological: Awake, alert, oriented to person, not place, not time, impaired short-term memory and recall. She knows the name of the president. No frontal release signs. No dysarthria or facial asymmetry. No nystagmus. Pupils 3 mm bilaterally equal, symmetrical. Unable to assess motor function but she moves extremities equally, no focal deficits bilateral upper and lower extremities on the right greater than the left. There is a rest tremor but it is not coarse, mild cogwheel rigidity, right greater than left in the upper extremities. Reflexes 1+ bilateral symmetrical. Plantars are bilaterally downgoing. Objective Micro and Labs Laboratory Tests Test 01/10/17 12:26 01/11/17 08:03 01/11/17 08:30 Free Thyroxine 3.17 White Blood Count 8.8 Red Blood Count 3.12 Hemoglobin 9.9 Hematocrit 29.5 Mean Corpuscular Volume 94.6 Mean Corpuscular Hemoglobin 31.9 Mean Corpuscular Hemoglobin Concent 33.7 Red Cell Distribution Width 15.1 Platelet Count 131 Mean Platelet Volume 9.8 Neutrophils (%) (Auto) 69.7 Lymphocytes (%) (Auto) 17.3 Monocytes (%) (Auto) 9.2 Eosinophils (%) (Auto) 3.6 Basophils (%) (Auto) 0.2 Neutrophils # (Auto) 6.1 Lymphocytes # (Auto) 1.5 Monocytes # (Auto) 0.8 Eosinophils # (Auto) 0.3 Basophils # (Auto) 0.0 CBC Comment DIFF FINAL Differential Comment Date/Time Source Procedure Growth Status 01/06/17 21:33 Blood Peripheral Aerobic Blood Culture - Preliminary NO GROWTH IN 4 DAYS Resulted 01/06/17 21:33 Blood Peripheral Anaerobic Blood Culture - Preliminary NO GROWTH IN 4 DAYS Resulted 01/06/17 14:31 Urine Clean Catch Urine Culture - Final Escherichia Coli Complete Patrick Vicente MD Jan 11, 2017 09:19
--- NOTE | 2017-01-11 10:24 | HHI.PR ---
Subjective Remarks in no distress. no new complaints. family at the bedside. Objective Vitals Vital Signs Date Time Temp Pulse Resp B/P (MAP) Pulse Ox O2 Delivery O2 Flow Rate FiO2 01/11/17 08:00 98.3 109 18 144/65 (91) 99 01/11/17 08:00 99 Room Air 01/11/17 04:00 98.2 110 18 141/63 (89) 97 01/11/17 00:00 98.4 123 20 139/70 (93) 100 01/10/17 20:00 Room Air 01/10/17 20:00 86 01/10/17 18:00 98.9 101 18 126/64 (84) 100 01/10/17 16:00 99.0 87 18 136/57 (83) 100 01/10/17 16:00 98.1 92 20 115/55 (75) 98 01/10/17 12:00 98.1 85 18 141/62 (88) 97 I/O 01/10/17 01/10/17 01/10/17 01/11/17 01/11/17 01/11/17 07:00 15:00 23:00 07:00 15:00 23:00 Intake Total 120 ml 187 ml 360 ml Output Total 300 ml Balance -180 ml 187 ml 360 ml Intake Oral 120 ml 360 ml IV Total 187 ml Output Urine Total 300 ml # Voids 2 3 # Bowel Movements 2 2 Result Diagram: 01/11/17 0830 01/09/17 0755 Imaging Last Impressions Brain MRI 01/07/17 0000 Signed Impressions: Service Date/Time: Saturday, January 07, 2017 08:56 - CONCLUSION: 1. Mild ventriculomegaly out of proportion for degree of volume loss with mild diffuse periventricular transependymal edema concerning for normal pressure hydrocephalus. Clinical correlation is recommended. 2. Otherwise, no acute abnormality. Rigoberto Reis MD Head CT 01/06/17 1410 Signed Impressions: Service Date/Time: Friday, January 06, 2017 15:36 - CONCLUSION: Increasing ventricular prominence. Nonspecific but can be seen with normal pressure hydrocephalus. Jose Moreno MD FACR Chest X-Ray 01/06/17 1337 Signed Impressions: Service Date/Time: Friday, January 06, 2017 14:08 - CONCLUSION: 1. No acute cardiopulmonary disease. Abdiel Lerma MD CT Angiography 01/06/17 7857 Signed Impressions: Service Date/Time: Friday, January 06, 2017 15:42 - CONCLUSION: 1. No evidence of pulmonary embolism. 2. Coronary artery calcifications. Abdiel Lerma MD Objective Remarks GENERAL: This is a well-nourished, well-developed patient, in no apparent distress. CARDIOVASCULAR: Regular rate and regular rhythm without murmurs, gallops, or rubs. RESPIRATORY: Clear to auscultation. Breath sounds equal bilaterally. No wheezes , rales, or rhonchi. GASTROINTESTINAL: Abdomen soft, non-tender, nondistended. Normal, active bowel sounds MUSCULOSKELETAL: Extremities without clubbing, cyanosis, or edema. NEURO: awake but confused. Medications and IVs Current Medications Aspirin (Aspirin Chew) 324 mg ONCE ONCE PO Last administered on 01/06/17 13: 50; Start 01/06/17 at 13:45; Stop 01/06/17 at 13:46; Status DC Sodium Chloride (NS Flush) 2 ml UNSCH PRN IVF FLUSH AFTER USING IV ACCESS; Start 01/06/17 at 13:45; Stop 01/07/17 at 00:49; Status DC Sodium Chloride 500 ml @ 500 mls/hr ONCE ONCE IV Last administered on 13:49; Start 01/06/17 at 13:45; Stop 01/06/17 at 15:42; Status DC Sodium Chloride 500 ml @ 500 mls/hr BOLUS ONCE IV Last administered on 14:45; Start 01/06/17 at 14:45; Stop 01/06/17 at 15:42; Status DC Potassium Chloride 100 ml @ 50 mls/hr Q2H IV Last administered on 01/06/17 16 :45; Start 01/06/17 at 14:45; Stop 01/06/17 at 18:44; Status DC Ceftriaxone Sodium 1000 mg/ Sodium Chloride 100 ml @ 200 mls/hr ONCE ONCE IV Last administered on 01/06/17 15:31; Start 01/06/17 at 15:30; Stop 01/06/17 at 15:59; Status DC Sodium Chloride (NS Flush) 2 ml UNSCH PRN IV FLUSH FLUSH AFTER USING IV ACCESS ; Start 01/06/17 at 15:45 Sodium Chloride (NS Flush) 2 ml BID IV FLUSH Last administered on 01/10/17 20: 28; Start 01/06/17 at 21:00 Naloxone HCl (Narcan Inj) 0.4 mg UNSCH PRN IV PUSH SEE LABEL COMMENTS; Start 01/06/17 at 15:45 Metoprolol Tartrate (Lopressor Inj) 2.5 mg ONCE ONCE IV PUSH Last administered on 01/06/17 16:08; Start 01/06/17 at 15:45; Stop 01/06/17 at 15:46 ; Status DC Iohexol (Omnipaque 350 Inj) 50 ml STK-MED ONCE IVCONTRAST Last administered on 01/06/17 15:45; Start 01/06/17 at 15:45; Stop 01/06/17 at 15:46; Status DC Potassium Bicarb/ Potassium Chloride (K-Lyte Cl Eff) 50 meq ONCE ONCE PO Last administered on 01/06/17 16:45; Start 01/06/17 at 16:45; Stop 01/06/17 at 18:00; Status DC Levofloxacin/ Dextrose 150 ml @ 100 mls/hr Q24H IV Last administered on 18:06; Start 01/06/17 at 18:00 Dextrose (D50w (Syr) Inj) 50 ml UNSCH PRN IV PUSH HYPOGLYCEMIA-SEE COMMENTS; Start 01/06/17 at 17:15; Stop 01/07/17 at 10:58; Status DC Glucagon (Glucagon Inj) 1 mg UNSCH PRN OTHER HYPOGLYCEMIA-SEE COMMENTS; Start 01/06/17 at 17:15; Stop 01/07/17 at 10:58; Status DC Water (Free Water) 200 ml Q4HR PO Last administered on 01/08/17 03:52; Start 01/06/17 at 20:00 Dextrose 1,000 ml @ 60 mls/hr [id number] IV Last administered on 01/09/17 23:40 ; Start 01/06/17 at 20:00; Stop 01/10/17 at 08:11; Status DC Potassium Bicarb/ Potassium Chloride (K-Lyte Cl Eff) 50 meq ONCE ONCE PO Last administered on 01/06/17 20:55; Start 01/06/17 at 20:00; Stop 01/06/17 at 20:01; Status DC Enoxaparin Sodium (Lovenox Inj) 40 mg Q24H SQ Last administered on 01/09/17 08 :11; Start 01/07/17 at 09:00; Status Future Hold Metoprolol Tartrate (Lopressor) 12.5 mg ONCE ONCE PO Last administered on 01/07 00:58; Start 01/07/17 at 00:45; Stop 01/07/17 at 00:48; Status DC Dextrose (D50w (Vial) Inj) 50 ml UNSCH PRN IV PUSH HYPOGLYCEMIA-SEE COMMENTS; Start 01/07/17 at 09:30 Glucagon (Glucagon Inj) 1 mg UNSCH PRN OTHER HYPOGLYCEMIA-SEE COMMENTS; Start 01/07/17 at 09:30 Insulin Aspart (NovoLOG SUPPLEMENTAL SCALE) 1 ACHS SLIDING SCALE SQ Last administered on 01/09/17 17:51; Start 01/07/17 at 12:00 Aspirin (Ecotrin Ec) 81 mg DAILY PO Last administered on 01/09/17 08:11; Start 01/08/17 at 09:00; Status Future Hold Atorvastatin Calcium (Lipitor) 40 mg HS PO Last administered on 01/10/17 20:29 ; Start 01/07/17 at 21:00 Bethanechol Chloride (Urecholine) 12.5 mg QID PO Last administered on 08:29; Start 01/07/17 at 13:00 Donepezil HCl (Aricept) 5 mg DAILY PO Last administered on 01/11/17 08:29; Start 01/08/17 at 09:00 Sucralfate (Carafate Liq) 1 gm TID@0600,1100,1600 PO Last administered on 05:42; Start 01/07/17 at 11:30 Pantoprazole Sodium (Protonix) 40 mg DAILY PO Last administered on 01/11/17 08 :29; Start 01/08/17 at 09:00 Miscellaneous (Pill Splitter) 1 ea UNSCH PRN OTHER SEE LABEL COMMENTS; Start 01/07/17 at 11:15 Potassium Chloride (KCl) 30 meq ONCE ONCE PO Last administered on 01/08/17 12 :38; Start 01/08/17 at 10:30; Stop 01/08/17 at 10:39; Status DC Potassium Chloride (KCl) 30 meq ONCE ONCE PO Last administered on 01/08/17 15 :10; Start 01/08/17 at 14:00; Stop 01/08/17 at 14:01; Status DC Sodium Chloride 1,000 ml @ 60 mls/hr [id number] IV Last administered on 01:53; Start 01/10/17 at 08:00 Alprazolam (Xanax) 0.125 mg NOW ONCE PO Last administered on 01/11/17 00:31; Start 01/11/17 at 00:30; Stop 01/11/17 at 00:31; Status DC A/P Assessment and Plan A/P Acute encephalopathy- possibly due to dehydration , UTI- seems to be improving continue with neuro-checks- continue IV fluid and antibiotics- possible NPH MRI brain with possible NPH- neurology and neurosurgery evaluation appreciated; awaiting lumbar drain placement. Hypernatremia- resolved- continue gentle IV hydration. Hypokalemia-replaced. Sinus tachycardia- due to dehydration and hyperthyroidism-will start metoprolol - continue to monitor nonspecific elevation of troponin- no chest pain- likely due to tachycardia- UTI with e-coli- on antibiotic- HTN-BP controlled- hold BP meds- will monitor for now. DM- accu-check with SSI. hyperthyroidism; will check TSI - start on methimazole of note d/w who was following the patient in the past ( for diabetes) ; recommended starting methimazole and rest of the work-up as outpatient. History of H. pylori gastritis; continue home meds DVT prophylaxis with subq Lovenox ( on hold for planned procedure). PT consulted. Discharge Planning pending lumbar drain placement/when cleared by neurology and neurosurgery . Melanie Mcnair MD Jan 11, 2017 10:24
[2017-01-11 11:55] LABS: BICARBONATE 23.9 MEQ/L (21.0-32.0); POTASSIUM 3.3 MEQ/L (3.5-5.1)
[2017-01-11] MEDS: METHIMAZOLE 5 MG TAB PO SCH ×2 (12:37→22:15)
[2017-01-11] MEDS: METOPROLOL TARTRATE 25 MG TAB PO SCH ×2 (12:38→21:55)
[2017-01-11] MEDS ORDERED: POTASSIUM CHLORIDE 10 MEQ CONTROLLED RELEASE TAB PO ONE (14:00)
--- NOTE | 2017-01-11 16:53 | HHI.NSPN ---
Note Status Status: Progress Note Interval History Diagnosis Possible NPH Interval History Ms. Matthew is an 81 year-old female who is a very poor historian with no family at bedside. Her medical history is obtained partly from the patient and mainly from the medical records. She lives with her daughter who has Down syndrome and takes care of her daughter and a daughter has a statistical developer who cooks for both the mother and the daughter. The family members think that she has not been doing well for several months and she was diagnosed with dementia and she has been shaking of the past several months. She was recently treated by her PCP for dehydration and received IV fluids and had a UTI in November. The patient was also noted to be in sinus tachycardia with a heart rate of 180.. CT of the brain showed ventriculomegaly. Neurosurgical consultation was requested 01/09. Remains confused at baseline. Family at bedside. 01/11. REMAINS CONFUSED, AT BASELINE. DRAIN NOT PLACED Labs, Micro, & Vital Signs Results Date Time Temp Pulse Resp B/P (MAP) Pulse Ox O2 Delivery O2 Flow Rate FiO2 01/11/17 16:30 98.4 102 18 136/76 (96) 100 01/11/17 12:00 98.5 86 16 149/67 (94) 99 01/11/17 08:00 79 01/11/17 08:00 98.3 109 18 144/65 (91) 99 01/11/17 08:00 99 Room Air 01/11/17 04:00 98.2 110 18 141/63 (89) 97 01/11/17 00:00 98.4 123 20 139/70 (93) 100 01/10/17 20:00 Room Air 01/10/17 20:00 86 01/10/17 18:00 98.9 101 18 126/64 (84) 100 01/12/17 07:00 Intake Total 650 ml Balance 650 ml Constitutional Vital Signs Date Time Temp Pulse Resp B/P (MAP) Pulse Ox O2 Delivery O2 Flow Rate FiO2 01/11/17 16:30 98.4 102 18 136/76 (96) 100 01/11/17 12:00 98.5 86 16 149/67 (94) 99 01/11/17 08:00 79 01/11/17 08:00 98.3 109 18 144/65 (91) 99 01/11/17 08:00 99 Room Air 01/11/17 04:00 98.2 110 18 141/63 (89) 97 01/11/17 00:00 98.4 123 20 139/70 (93) 100 01/10/17 20:00 Room Air 01/10/17 20:00 86 01/10/17 18:00 98.9 101 18 126/64 (84) 100 01/12/17 07:00 Intake Total 650 ml Balance 650 ml Physical Exam Ms Matthew is alert, confused, being fed her lunch. Cranial nerve examination: pupils equal, round, and reactive to light. Facial motor function appears symmetrical. Neck is soft and supple. Motor: Resting tremors. Moves both upper and lower extremities. Cerebellar examination is limited due to the patient condition Medications Current Medications Current Medications Aspirin (Aspirin Chew) 324 mg ONCE ONCE PO Last administered on 01/06/17 13: 50; Start 01/06/17 at 13:45; Stop 01/06/17 at 13:46; Status DC Sodium Chloride (NS Flush) 2 ml UNSCH PRN IVF FLUSH AFTER USING IV ACCESS; Start 01/06/17 at 13:45; Stop 01/07/17 at 00:49; Status DC Sodium Chloride 500 ml @ 500 mls/hr ONCE ONCE IV Last administered on 13:49; Start 01/06/17 at 13:45; Stop 01/06/17 at 15:42; Status DC Sodium Chloride 500 ml @ 500 mls/hr BOLUS ONCE IV Last administered on 14:45; Start 01/06/17 at 14:45; Stop 01/06/17 at 15:42; Status DC Potassium Chloride 100 ml @ 50 mls/hr Q2H IV Last administered on 01/06/17 16 :45; Start 01/06/17 at 14:45; Stop 01/06/17 at 18:44; Status DC Ceftriaxone Sodium 1000 mg/ Sodium Chloride 100 ml @ 200 mls/hr ONCE ONCE IV Last administered on 01/06/17 15:31; Start 01/06/17 at 15:30; Stop 01/06/17 at 15:59; Status DC Sodium Chloride (NS Flush) 2 ml UNSCH PRN IV FLUSH FLUSH AFTER USING IV ACCESS ; Start 01/06/17 at 15:45 Sodium Chloride (NS Flush) 2 ml BID IV FLUSH Last administered on 01/10/17 20: 28; Start 01/06/17 at 21:00 Naloxone HCl (Narcan Inj) 0.4 mg UNSCH PRN IV PUSH SEE LABEL COMMENTS; Start 01/06/17 at 15:45 Metoprolol Tartrate (Lopressor Inj) 2.5 mg ONCE ONCE IV PUSH Last administered on 01/06/17 16:08; Start 01/06/17 at 15:45; Stop 01/06/17 at 15:46 ; Status DC Iohexol (Omnipaque 350 Inj) 50 ml STK-MED ONCE IVCONTRAST Last administered on 01/06/17 15:45; Start 01/06/17 at 15:45; Stop 01/06/17 at 15:46; Status DC Potassium Bicarb/ Potassium Chloride (K-Lyte Cl Eff) 50 meq ONCE ONCE PO Last administered on 01/06/17 16:45; Start 01/06/17 at 16:45; Stop 01/06/17 at 18:00; Status DC Levofloxacin/ Dextrose 150 ml @ 100 mls/hr Q24H IV Last administered on 18:06; Start 01/06/17 at 18:00 Dextrose (D50w (Syr) Inj) 50 ml UNSCH PRN IV PUSH HYPOGLYCEMIA-SEE COMMENTS; Start 01/06/17 at 17:15; Stop 01/07/17 at 10:58; Status DC Glucagon (Glucagon Inj) 1 mg UNSCH PRN OTHER HYPOGLYCEMIA-SEE COMMENTS; Start 01/06/17 at 17:15; Stop 01/07/17 at 10:58; Status DC Water (Free Water) 200 ml Q4HR PO Last administered on 01/08/17 03:52; Start 01/06/17 at 20:00; Stop 01/11/17 at 13:27; Status DC Dextrose 1,000 ml @ 60 mls/hr [id number] IV Last administered on 01/09/17 23:40 ; Start 01/06/17 at 20:00; Stop 01/10/17 at 08:11; Status DC Potassium Bicarb/ Potassium Chloride (K-Lyte Cl Eff) 50 meq ONCE ONCE PO Last administered on 01/06/17 20:55; Start 01/06/17 at 20:00; Stop 01/06/17 at 20:01; Status DC Enoxaparin Sodium (Lovenox Inj) 40 mg Q24H SQ Last administered on 01/09/17 08 :11; Start 01/07/17 at 09:00; Status Future Hold Metoprolol Tartrate (Lopressor) 12.5 mg ONCE ONCE PO Last administered on 01/07 00:58; Start 01/07/17 at 00:45; Stop 01/07/17 at 00:48; Status DC Dextrose (D50w (Vial) Inj) 50 ml UNSCH PRN IV PUSH HYPOGLYCEMIA-SEE COMMENTS; Start 01/07/17 at 09:30 Glucagon (Glucagon Inj) 1 mg UNSCH PRN OTHER HYPOGLYCEMIA-SEE COMMENTS; Start 01/07/17 at 09:30 Insulin Aspart (NovoLOG SUPPLEMENTAL SCALE) 1 ACHS SLIDING SCALE SQ Last administered on 01/09/17 17:51; Start 01/07/17 at 12:00 Aspirin (Ecotrin Ec) 81 mg DAILY PO Last administered on 01/09/17 08:11; Start 01/08/17 at 09:00; Status Future Hold Atorvastatin Calcium (Lipitor) 40 mg HS PO Last administered on 01/10/17 20:29 ; Start 01/07/17 at 21:00 Bethanechol Chloride (Urecholine) 12.5 mg QID PO Last administered on 12:38; Start 01/07/17 at 13:00 Donepezil HCl (Aricept) 5 mg DAILY PO Last administered on 01/11/17 08:29; Start 01/08/17 at 09:00 Sucralfate (Carafate Liq) 1 gm TID@0600,1100,1600 PO Last administered on 05:42; Start 01/07/17 at 11:30 Pantoprazole Sodium (Protonix) 40 mg DAILY PO Last administered on 01/11/17 08 :29; Start 01/08/17 at 09:00 Miscellaneous (Pill Splitter) 1 ea UNSCH PRN OTHER SEE LABEL COMMENTS; Start 01/07/17 at 11:15 Potassium Chloride (KCl) 30 meq ONCE ONCE PO Last administered on 01/08/17 12 :38; Start 01/08/17 at 10:30; Stop 01/08/17 at 10:39; Status DC Potassium Chloride (KCl) 30 meq ONCE ONCE PO Last administered on 01/08/17 15 :10; Start 01/08/17 at 14:00; Stop 01/08/17 at 14:01; Status DC Sodium Chloride 1,000 ml @ 60 mls/hr [id number] IV Last administered on 01:53; Start 01/10/17 at 08:00; Stop 01/11/17 at 13:27; Status DC Alprazolam (Xanax) 0.125 mg NOW ONCE PO Last administered on 01/11/17 00:31; Start 01/11/17 at 00:30; Stop 01/11/17 at 00:31; Status DC Methimazole (Tapazole) 5 mg Q12HR PO Last administered on 01/11/17 12:37; Start 01/11/17 at 10:30 Metoprolol Tartrate (Lopressor) 12.5 mg Q12HR PO Last administered on 12:38; Start 01/11/17 at 10:30 Potassium Chloride (KCl) 30 meq ONCE ONCE PO ; Start 01/11/17 at 14:00; Stop 01/11/17 at 14:01; Status DC Plan Plan Remarks Chirini VTE Risk Assessment: Mod/High Risk (score >= 2) Caprini Risk Assessment Model Point Value = 1 Point Value = 2 Point Value = 3 Point Value = 5 Age 41-60 Minor surgery BMI > 25 kg/m2 Swollen legs Varicose veins or History of unexplained or recurrent spontaneous Oral contraceptives or hormone replacement Sepsis (< 1 month) Serious lung disease, including pneumonia (< 1 month) Abnormal pulmonary function Acute myocardial infarction Congestive heart failure (< 1 month) History of inflammatory bowel disease Medical patient at bed rest Age 61-74 Arthroscopic surgery Major open surgery (> 45 min) Laparoscopic surgery (> 45 min) Malignancy Confined to bed (> 72 hours) Immobilizing plaster cast Central venous access Age >= 75 History of VTE Family history of VTE Factor V Leiden Prothrombin [id number] Lupus anticoagulant Anticardiolipin antibodies Elevated serum homocysteine Heparin-induced thrombocytopenia Other congenital or acquired thrombophilia Stroke (< 1 month) Elective arthroplasty Hip, pelvis, or leg fracture Acute spinal cord injury (< 1 month) Prophylaxis Regimen Total Risk Factor Score Risk Level Prophylaxis Regimen 0-1 Low Early ambulation 2 Moderate Order ONE of the following: *Sequential Compression Device (SCD) *Heparin 5000 units SQ BID 3-4 Higher Order ONE of the following medications: *Heparin 5000 units SQ TID *Enoxaparin/Lovenox 40 mg SQ daily (WT < 150 kg, CrCl > 30 mL/min) *Enoxaparin/Lovenox 30 mg SQ daily (WT < 150 kg, CrCl > 10-29 mL/min) *Enoxaparin/Lovenox 30 mg SQ BID (WT < 150 kg, CrCl > 30 mL/min) AND/OR *Sequential Compression Device (SCD) 5 or more Highest Order ONE of the following medications: *Heparin 5000 units SQ TID (Preferred with Epidurals) *Enoxaparin/Lovenox 40 mg SQ daily (WT < 150 kg, CrCl > 30 mL/min) *Enoxaparin/Lovenox 30 mg SQ daily (WT < 150 kg, CrCl > 10-29 mL/min) *Enoxaparin/Lovenox 30 mg SQ BID (WT < 150 kg, CrCl > 30 mL/min) AND *Sequential Compression Device (SCD) Attending Statement Continue neuro checks. lumbar spinal drain NOT PLACED BECAUSE SHE WAS ON asa. Pulmonary continue.aggressive pulmonary toilette, nasotracheal suction, and breathing treatments with nebulizers. Renal. Continue to monitor closely urine output, BUN and creatinine Endocrine. Continue to Monitor serial Acu checks and SSI as needed in detail ID continue to monitor for signs of infection Continue Protonix for stress ulcer prophylaxis Continue Octavio hose and SCD's for DVT prophylaxis. Discussed with Jose L Resendez MD Jan 11, 2017 16:53
[2017-01-11] MEDS: LEVOFLOXACIN 750 MG PREMIX INJ 150 ML IV SCH (17:21)
[2017-01-11] MEDS: ATORVASTATIN 40 MG TAB PO SCH (21:54)
[2017-01-12] VITALS (11 sets, daily range): BP systolic 137–173; BP diastolic 62–89; PULSE 53–118; RESP 16–20; TEMP 97.7–98.2; O2SAT 93–99
[2017-01-12] MEDS: SUCRALFATE 1 GM/10 ML CUP PO SCH ×3 (05:33→14:53)
[2017-01-12] MEDS: INSULIN ASPART SUPPLEMENTAL SCALE SQ SCH ×4 (08:00→20:37)
--- NOTE | 2017-01-12 08:14 | HHI.PR ---
Subjective Remarks in no acute distress. denies pain. awake and alert but not oriented to time. Objective Vitals Vital Signs Date Time Temp Pulse Resp B/P (MAP) Pulse Ox O2 Delivery O2 Flow Rate FiO2 01/12/17 05:10 97.7 118 16 168/73 (104) 93 01/12/17 05:00 148/74 (98) 01/11/17 23:42 98.1 98 16 136/65 (88) 99 01/11/17 20:17 98.5 82 16 139/65 (89) 97 01/11/17 20:00 75 01/11/17 20:00 Room Air 01/11/17 19:30 98.4 80 18 138/65 (89) 99 01/11/17 16:30 98.4 102 18 136/76 (96) 100 01/11/17 16:00 98.0 106 16 137/64 (88) 98 01/11/17 16:00 100 Room Air 01/11/17 12:00 99 Room Air 01/11/17 12:00 98.5 86 16 149/67 (94) 99 I/O 01/11/17 01/11/17 01/11/17 01/12/17 01/12/17 01/12/17 07:00 15:00 23:00 07:00 15:00 23:00 Intake Total 650 ml 425 ml 0 ml Output Total 600 ml 600 ml Balance 650 ml -175 ml -600 ml Intake Oral 120 ml 0 ml Oral Supplement 200 ml IV Total 650 ml 105 ml Output Urine Total 600 ml 600 ml # Voids 3 # Bowel Movements 0 0 Result Diagram: 01/11/17 0830 01/11/17 0803 Imaging Last Impressions Brain MRI 01/07/17 0000 Signed Impressions: Service Date/Time: Saturday, January 07, 2017 08:56 - CONCLUSION: 1. Mild ventriculomegaly out of proportion for degree of volume loss with mild diffuse periventricular transependymal edema concerning for normal pressure hydrocephalus. Clinical correlation is recommended. 2. Otherwise, no acute abnormality. Rigoberto Reis MD Head CT 01/06/17 1410 Signed Impressions: Service Date/Time: Friday, January 06, 2017 15:36 - CONCLUSION: Increasing ventricular prominence. Nonspecific but can be seen with normal pressure hydrocephalus. Jose Moreno MD FACR Chest X-Ray 01/06/171336 Signed Impressions: Service Date/Time: Friday, January 06, 2017 14:08 - CONCLUSION: 1. No acute cardiopulmonary disease. Abdiel Lerma MD CT Angiography [id number]/06/171336 Signed Impressions: Service Date/Time: Friday, January 06, 2017 15:42 - CONCLUSION: 1. No evidence of pulmonary embolism. 2. Coronary artery calcifications. Abdiel Lerma MD Objective Remarks GENERAL: This is a well-nourished, well-developed patient, in no apparent distress. CARDIOVASCULAR: Regular rate and regular rhythm without murmurs, gallops, or rubs. RESPIRATORY: Clear to auscultation. Breath sounds equal bilaterally. No wheezes , rales, or rhonchi. GASTROINTESTINAL: Abdomen soft, non-tender, nondistended. Normal, active bowel sounds MUSCULOSKELETAL: Extremities without clubbing, cyanosis, or edema. NEURO: awake but confused. Medications and IVs Current Medications Aspirin (Aspirin Chew) 324 mg ONCE ONCE PO Last administered on 01/06/17 13: 50; Start 01/06/17 at 13:45; Stop 01/06/17 at 13:46; Status DC Sodium Chloride (NS Flush) 2 ml UNSCH PRN IVF FLUSH AFTER USING IV ACCESS; Start 01/06/17 at 13:45; Stop 01/07/17 at 00:49; Status DC Sodium Chloride 500 ml @ 500 mls/hr ONCE ONCE IV Last administered on 13:49; Start 01/06/17 at 13:45; Stop 01/06/17 at 15:42; Status DC Sodium Chloride 500 ml @ 500 mls/hr BOLUS ONCE IV Last administered on 14:45; Start 01/06/17 at 14:45; Stop 01/06/17 at 15:42; Status DC Potassium Chloride 100 ml @ 50 mls/hr Q2H IV Last administered on 01/06/17 16 :45; Start 01/06/17 at 14:45; Stop 01/06/17 at 18:44; Status DC Ceftriaxone Sodium 1000 mg/ Sodium Chloride 100 ml @ 200 mls/hr ONCE ONCE IV Last administered on 01/06/17 15:31; Start 01/06/17 at 15:30; Stop 01/06/17 at 15:59; Status DC Sodium Chloride (NS Flush) 2 ml UNSCH PRN IV FLUSH FLUSH AFTER USING IV ACCESS ; Start 01/06/17 at 15:45 Sodium Chloride (NS Flush) 2 ml BID IV FLUSH Last administered on 01/11/17 21: 57; Start 01/06/17 at 21:00 Naloxone HCl (Narcan Inj) 0.4 mg UNSCH PRN IV PUSH SEE LABEL COMMENTS; Start 01/06/17 at 15:45 Metoprolol Tartrate (Lopressor Inj) 2.5 mg ONCE ONCE IV PUSH Last administered on 01/06/17 16:08; Start 01/06/17 at 15:45; Stop 01/06/17 at 15:46 ; Status DC Iohexol (Omnipaque 350 Inj) 50 ml STK-MED ONCE IVCONTRAST Last administered on 01/06/17 15:45; Start 01/06/17 at 15:45; Stop 01/06/17 at 15:46; Status DC Potassium Bicarb/ Potassium Chloride (K-Lyte Cl Eff) 50 meq ONCE ONCE PO Last administered on 01/06/17 16:45; Start 01/06/17 at 16:45; Stop 01/06/17 at 18:00; Status DC Levofloxacin/ Dextrose 150 ml @ 100 mls/hr Q24H IV Last administered on 17:21; Start 01/06/17 at 18:00 Dextrose (D50w (Syr) Inj) 50 ml UNSCH PRN IV PUSH HYPOGLYCEMIA-SEE COMMENTS; Start 01/06/17 at 17:15; Stop 01/07/17 at 10:58; Status DC Glucagon (Glucagon Inj) 1 mg UNSCH PRN OTHER HYPOGLYCEMIA-SEE COMMENTS; Start 01/06/17 at 17:15; Stop 01/07/17 at 10:58; Status DC Water (Free Water) 200 ml Q4HR PO Last administered on 01/08/17 03:52; Start 01/06/17 at 20:00; Stop 01/11/17 at 13:27; Status DC Dextrose 1,000 ml @ 60 mls/hr [id number] IV Last administered on 01/09/17 23:40 ; Start 01/06/17 at 20:00; Stop 01/10/17 at 08:11; Status DC Potassium Bicarb/ Potassium Chloride (K-Lyte Cl Eff) 50 meq ONCE ONCE PO Last administered on 01/06/17 20:55; Start 01/06/17 at 20:00; Stop 01/06/17 at 20:01; Status DC Enoxaparin Sodium (Lovenox Inj) 40 mg Q24H SQ Last administered on 01/09/17 08 :11; Start 01/07/17 at 09:00; Status Future Hold Metoprolol Tartrate (Lopressor) 12.5 mg ONCE ONCE PO Last administered on 01/07 00:58; Start 01/07/17 at 00:45; Stop 01/07/17 at 00:48; Status DC Dextrose (D50w (Vial) Inj) 50 ml UNSCH PRN IV PUSH HYPOGLYCEMIA-SEE COMMENTS; Start 01/07/17 at 09:30 Glucagon (Glucagon Inj) 1 mg UNSCH PRN OTHER HYPOGLYCEMIA-SEE COMMENTS; Start 01/07/17 at 09:30 Insulin Aspart (NovoLOG SUPPLEMENTAL SCALE) 1 ACHS SLIDING SCALE SQ Last administered on 01/09/17 17:51; Start 01/07/17 at 12:00 Aspirin (Ecotrin Ec) 81 mg DAILY PO Last administered on 01/09/17 08:11; Start 01/08/17 at 09:00; Status Future Hold Atorvastatin Calcium (Lipitor) 40 mg HS PO Last administered on 01/11/17 21:54 ; Start 01/07/17 at 21:00 Bethanechol Chloride (Urecholine) 12.5 mg QID PO Last administered on 21:55; Start 01/07/17 at 13:00 Donepezil HCl (Aricept) 5 mg DAILY PO Last administered on 01/11/17 08:29; Start 01/08/17 at 09:00 Sucralfate (Carafate Liq) 1 gm TID@0600,1100,1600 PO Last administered on 17:20; Start 01/07/17 at 11:30 Pantoprazole Sodium (Protonix) 40 mg DAILY PO Last administered on 01/11/17 08 :29; Start 01/08/17 at 09:00 Miscellaneous (Pill Splitter) 1 ea UNSCH PRN OTHER SEE LABEL COMMENTS; Start 01/07/17 at 11:15 Potassium Chloride (KCl) 30 meq ONCE ONCE PO Last administered on 01/08/17 12 :38; Start 01/08/17 at 10:30; Stop 01/08/17 at 10:39; Status DC Potassium Chloride (KCl) 30 meq ONCE ONCE PO Last administered on 01/08/17 15 :10; Start 01/08/17 at 14:00; Stop 01/08/17 at 14:01; Status DC Sodium Chloride 1,000 ml @ 60 mls/hr [id number] IV Last administered on 01:53; Start 01/10/17 at 08:00; Stop 01/11/17 at 13:27; Status DC Alprazolam (Xanax) 0.125 mg NOW ONCE PO Last administered on 01/11/17 00:31; Start 01/11/17 at 00:30; Stop 01/11/17 at 00:31; Status DC Methimazole (Tapazole) 5 mg Q12HR PO Last administered on 01/11/17 22:15; Start 01/11/17 at 10:30 Metoprolol Tartrate (Lopressor) 12.5 mg Q12HR PO Last administered on 21:55; Start 01/11/17 at 10:30 Potassium Chloride (KCl) 30 meq ONCE ONCE PO Last administered on 01/11/17 17 :19; Start 01/11/17 at 14:00; Stop 01/11/17 at 14:01; Status DC A/P Assessment and Plan A/P Acute encephalopathy- possibly due to dehydration , UTI- seems to be improving- although still not oriented to time. continue with neuro-checks- neurology evaluation appreciated. possible NPH MRI brain with possible NPH- neurology and neurosurgery evaluation appreciated; awaiting lumbar drain placement - today. Hypernatremia- resolved- will monitor. Hypokalemia-replaced. Sinus tachycardia- due to dehydration and hyperthyroidism-continue metoprolol- continue to monitor nonspecific elevation of troponin- no chest pain- likely due to tachycardia- UTI with e-coli- on antibiotic-will finish the course today. HTN-BP controlled- continue metoprolol- will monitor for now. DM- accu-check with SSI. hyperthyroidism; TSI pending - started on methimazole of note previously d/w who was following the patient in the past ( for diabetes); recommended starting methimazole and rest of the work-up as outpatient. History of H. pylori gastritis; continue home meds DVT prophylaxis with subq Lovenox ( on hold for planned procedure). PT consulted. Discharge Planning pending lumbar drain placement/dc planning to SNF when cleared by neurology and neurosurgery . Melanie Mcnair MD Jan 12, 2017 08:14
[2017-01-12] MEDS: METOPROLOL TARTRATE 25 MG TAB PO SCH ×2 (09:47→20:36)
[2017-01-12] MEDS: DONEPEZIL HCL 5 MG TAB PO SCH (09:47)
[2017-01-12] MEDS: PANTOPRAZOLE SOD 40 MG DELAYED RELEASE TAB PO SCH (09:47)
[2017-01-12] MEDS: SODIUM CHLORIDE 0.9% FLUSH 10 ML FLUSH IV FLUSH SCH ×2 (09:47→20:35)
[2017-01-12] MEDS: METHIMAZOLE 5 MG TAB PO SCH ×2 (09:47→20:35)
[2017-01-12] MEDS: BETHANECHOL CHL 25 MG TAB PO SCH ×4 (09:47→20:36)
[2017-01-12] MEDS ORDERED: MIDAZOLAM HCL 2 MG/2 ML VIAL ONE (10:35)
[2017-01-12] MEDS ORDERED: ceFAZolin 2 GM PREMIX 50 ML ONE (10:36)
--- NOTE | 2017-01-12 12:12 | PD.RAD ---
Post Procedure Progress Note Pre Procedure Diagnosis: (1) Possible NPH (2) Altered mental status Post Procedure Diagnosis: (1) Altered mental status (2) Possible NPH Procedure Date: Jan 12, 2017 Supervising Radiologist: Marco A Fagan Proceduralist/Assist: Vincenzo Melton, RT(R), Kraig Obregon, RT(R) Anesthesia: Local, Analgesia, Conscious Sedation Plan of Activity Patient to Unit: [facility] Patient Condition: Good See PACS Report for procedural detail/treatment Spinal Procedure Lumbar Drain L3-L4 Fluid Description: Clear Puncture Time: 10:43 Findings: Tip @ T9 Marco A Fagan MD Jan 12, 2017 12:12
--- NOTE | 2017-01-12 16:56 | HHI.NSPN ---
(Maya Schreiber) Note Status Status: Progress Note (Maya Schreiber) Interval History Interval History Ms. Matthew is an 81 year-old female who is a very poor historian with no family at bedside. Her medical history is obtained partly from the patient and mainly from the medical records. She lives with her daughter who has Down syndrome and takes care of her daughter and a daughter has a plastering supervisor who cooks for both the mother and the daughter. The family members think that she has not been doing well for several months and she was diagnosed with dementia and she has been shaking of the past several months. She was recently treated by her PCP for dehydration and received IV fluids and had a UTI in November. The patient was also noted to be in sinus tachycardia with a heart rate of 180.. CT of the brain showed ventriculomegaly. Neurosurgical consultation was requested 01/09. Remains confused at baseline. Family at bedside. 01/10: awaiting lumbar drain as patient was given aspirin yesterday. 01/12: pt seen this morning during rounds, preparing to be taken down to IR for lumbar drain placement, no new complaints. (Myaa Schreiber) Labs, Micro, & Vital Signs Results Date Time Temp Pulse Resp B/P (MAP) Pulse Ox O2 Delivery O2 Flow Rate FiO2 01/12/17 12:25 78 16 157/68 (97) 99 01/12/17 11:55 93 18 139/62 (87) 99 01/12/17 11:25 98 18 137/63 (87) 99 01/12/17 11:10 97.8 98 18 143/77 (99) 98 01/12/17 09:00 115 01/12/17 09:00 97 Room Air 01/12/17 08:00 97.9 114 18 152/65 (94) 99 01/12/17 05:10 97.7 118 16 168/73 (104) 93 01/12/17 05:00 148/74 (98) 01/11/17 23:42 98.1 98 16 136/65 (88) 99 01/11/17 20:17 98.5 82 16 139/65 (89) 97 01/11/17 20:00 75 01/11/17 20:00 Room Air 01/11/17 19:30 98.4 80 18 138/65 (89) 99 01/13/17 07:00 Intake Total 50 ml Balance 50 ml Constitutional Vital Signs Date Time Temp Pulse Resp B/P (MAP) Pulse Ox O2 Delivery O2 Flow Rate FiO2 01/12/17 12:25 78 16 157/68 (97) 99 01/12/17 11:55 93 18 139/62 (87) 99 01/12/17 11:25 98 18 137/63 (87) 99 01/12/17 11:10 97.8 98 18 143/77 (99) 98 01/12/17 09:00 115 01/12/17 09:00 97 Room Air 01/12/17 08:00 97.9 114 18 152/65 (94) 99 01/12/17 05:10 97.7 118 16 168/73 (104) 93 01/12/17 05:00 148/74 (98) 01/11/17 23:42 98.1 98 16 136/65 (88) 99 01/11/17 20:17 98.5 82 16 139/65 (89) 97 01/11/17 20:00 75 01/11/17 20:00 Room Air 01/11/17 19:30 98.4 80 18 138/65 (89) 99 01/13/17 07:00 Intake Total 50 ml Balance 50 ml (Maya Schreiber) Physical Exam Ms Matthew is alert, no acute distress. Conversing. Cranial nerve examination: pupils equal, round, and reactive to light. Facial motor function appears symmetrical. Neck is soft and supple. Motor: Resting tremors. Moves both upper and lower extremities. Cerebellar examination is limited due to the patient condition (Maya Schreiber) Ms Matthew is alert, no acute distress. Conversing. Cranial nerve examination: pupils equal, round, and reactive to light. Facial motor function appears symmetrical. Neck is soft and supple. Motor: Resting tremors. Moves both upper and lower extremities. Cerebellar examination is limited due to the patient condition (Jose L Taveras MD) Medications Current Medications Current Medications Medications (Trade) Dose Ordered Sig/Jordan Route PRN Reason Start Time Stop Time Status Last Admin Dose Admin Sodium Chloride (NS Flush) 2 ml UNSCH PRN IV FLUSH FLUSH AFTER USING IV ACCESS 01/06/17 15:45 Sodium Chloride (NS Flush) 2 ml BID IV FLUSH 01/06/17 21:00 01/12/17 09:47 Naloxone HCl (Narcan Inj) 0.4 mg UNSCH PRN IV PUSH SEE LABEL COMMENTS 01/06/17 15:45 Levofloxacin/ Dextrose 150 ml @ 100 mls/hr Q24H IV 01/06/17 18:00 01/12/17 21:00 01/11/17 17:21 Enoxaparin Sodium (Lovenox Inj) 40 mg Q24H SQ 01/07/17 09:00 Future Hold 01/09/17 08:11 Dextrose (D50w (Vial) Inj) 50 ml UNSCH PRN IV PUSH HYPOGLYCEMIA-SEE COMMENTS 01/07/17 09:30 Glucagon (Glucagon Inj) 1 mg UNSCH PRN OTHER HYPOGLYCEMIA-SEE COMMENTS 01/07/17 09:30 Insulin Aspart (NovoLOG SUPPLEMENTAL SCALE) 1 ACHS SLIDING SCALE SQ 01/07/17 12:00 01/09/17 17:51 Aspirin (Ecotrin Ec) 81 mg DAILY PO 01/08/17 09:00 Future Hold 01/09/17 08:11 Atorvastatin Calcium (Lipitor) 40 mg HS PO 01/07/17 21:00 01/11/17 21:54 Bethanechol Chloride (Urecholine) 12.5 mg QID PO 01/07/17 13:00 01/12/17 13:12 Donepezil HCl (Aricept) 5 mg DAILY PO 01/08/17 09:00 01/12/17 09:47 Sucralfate (Carafate Liq) 1 gm TID@0600,1100,1600 PO 01/07/17 11:30 01/12/17 13:12 Pantoprazole Sodium (Protonix) 40 mg DAILY PO 01/08/17 09:00 01/12/17 09:47 Miscellaneous (Pill Splitter) 1 ea UNSCH PRN OTHER SEE LABEL COMMENTS 01/07/17 11:15 Methimazole (Tapazole) 5 mg Q12HR PO 01/11/17 10:30 01/12/17 09:47 Metoprolol Tartrate (Lopressor) 12.5 mg Q12HR PO 01/11/17 10:30 01/12/17 09:47 (Maya Schreiber) Medical Decision Making MDM Remarks 81 y/o female with suspected Normal Pressure Hydrocephalus (Maya Schreiber) Plan Plan Remarks awaiting lumbar drain placement drain CSF per protocol- orders placed cont medical management PT assessment (Maya Schreiber) Attending Statement Continue neuro checks. lumbar spinal drain placement today Pulmonary continue.aggressive pulmonary toilette, nasotracheal suction, and breathing treatments with nebulizers. Renal. Continue to monitor closely urine output, BUN and creatinine Endocrine. Continue to Monitor serial Acu checks and SSI as needed in detail ID continue to monitor for signs of infection Continue Protonix for stress ulcer prophylaxis Continue Octavio hose and SCD's for DVT prophylaxis. The exam, history, and the medical decision-making described in the above note were completed with the assistance of the mid-level provider. I reviewed and agree with the findings presented. I attest that I had a [id number] encounter with the patient on the same day, and personally performed and documented my assessment and findings in the medical record. (Jose L Taveras MD) Maya Schreiber Jan 12, 2017 16:56 Jose L Tvaeras MD Jan 12, 2017 17:41
[2017-01-12] MEDS: LEVOFLOXACIN 750 MG PREMIX INJ 150 ML IV SCH (17:33)
[2017-01-12] MEDS: ATORVASTATIN 40 MG TAB PO SCH (20:36)
[2017-01-13] VITALS (7 sets, daily range): BP systolic 110–145; BP diastolic 58–75; PULSE 96–124; RESP 16–18; TEMP 97.8–98.5; O2SAT 95–100
[2017-01-13] MEDS: SUCRALFATE 1 GM/10 ML CUP PO SCH ×3 (06:08→14:58)
[2017-01-13] MEDS: INSULIN ASPART SUPPLEMENTAL SCALE SQ SCH ×4 (07:33→21:00)
[2017-01-13] MEDS: BETHANECHOL CHL 25 MG TAB PO SCH ×4 (07:42→21:00)
[2017-01-13] MEDS: DONEPEZIL HCL 5 MG TAB PO SCH (07:42)
[2017-01-13] MEDS: METOPROLOL TARTRATE 25 MG TAB PO SCH ×2 (07:42→21:00)
[2017-01-13] MEDS: SODIUM CHLORIDE 0.9% FLUSH 10 ML FLUSH IV FLUSH SCH ×2 (07:42→21:00)
[2017-01-13] MEDS: METHIMAZOLE 5 MG TAB PO SCH ×2 (07:42→21:00)
[2017-01-13] MEDS: PANTOPRAZOLE SOD 40 MG DELAYED RELEASE TAB PO SCH (07:42)
--- NOTE | 2017-01-13 09:10 | RADRPT ---
EXAM DATE/TIME: 01/12/2017 10:22 [facility] COMPARISON: No previous studies available for comparison. INDICATIONS : Patient in need of lumbar drain placement for possible normal pressure hydrocephalus. MEDICAL HISTORY : HTN DM Mild mitral regurgitation Moderate tricuspid regurgitation Hx of H pylori gastritis SURGIAL HISTORY : ERCP w/ sphincterotomy in october 2016 ENCOUNTER: Initial ACUITY: 4 - 6 days PAIN SCORE: 0/10 LOCATION: N/A LUMBAR PUNCTURE TIME: 10:43 hours FLUORO TIME: 2.6 minutes IMAGE SERIES: 3 SEDATION TIME: 15 minutes LEVEL: Tip of lumbar drain was placed at T9 MEDICATION(S): 1.) 0.5 mg midazolam (Versed) IV 2.) 50 mcg fentanyl (Sublimaze) IV 3.) 2 g cefazolin (Ancef) IV DEVICE(S): 1.) 5 [place] lumbar drain catheter PROCEDURE : 1. Fluoroscopically guided lumbar drain placement. 2. Conscious sedation with continuous EKG and oximetry monitoring. The risks, benefits and alternatives to the procedure were explained and verbal and written consent w as obtained. The site was prepped in sterile fashion. Full sterile technique was used, including ca p, mask, sterile gloves and gown and a large sterile sheet. Hand hygiene and 2% chlorhexidine and/or betadine/alcohol prep was utilized per protocol for cutaneous antisepsis. The skin and subcutaneous tissues were infiltrated with local anesthetic solution. With fluoroscopic guidance the lumbar thecal sac was punctured with a 14 gauge Touhy needle and a lum bar drain was placed with its tip at the level as described above and the catheter was sutured in ann ce. CSF was identified returning from the catheter at the termination of the procedure. Conscious sedation was performed with the prescribed dosages and duration as above in the presence of an independent trained radiology nurse to assist in the monitoring of the patient. EKG and oximetry remained stable throughout the procedure. The patient tolerated the procedure well and there were n o complications. The patient was sent to post anesthesia recovery in stable condition. CONCLUSION: Uncomplicated lumbar drain placement as above. Marco A Fagan MD on January 13, 2017 at 9:08 Board Certified Radiologist. This report was verified electronically.
--- NOTE | 2017-01-13 11:50 | HHI.PR ---
Subjective Remarks Patient inbed, she is pleasantly confused. Has no pain at this time. No fever or chills. Per nurse she is not eating much . K was low yesterday will replace and recheck . No n/v/d/c. Objective Vitals Vital Signs Date Time Temp Pulse Resp B/P (MAP) Pulse Ox O2 Delivery O2 Flow Rate FiO2 01/13/17 10:26 98.0 114 16 134/63 (86) 99 01/13/17 08:25 96 01/13/17 01:18 97.8 107 18 129/75 (93) 96 01/12/17 20:54 98.2 111 18 152/68 (96) 99 01/12/17 19:00 109 01/12/17 17:00 98.1 75 20 137/72 (93) 99 01/12/17 12:25 78 16 157/68 (97) 99 01/12/17 11:55 93 18 139/62 (87) 99 I/O 01/12/17 01/12/17 01/12/17 01/13/17 01/13/17 01/13/17 07:00 15:00 23:00 07:00 15:00 23:00 Intake Total 0 ml 50 ml Output Total 600 ml 1400 ml Balance -600 ml 50 ml -1400 ml Intake Oral 0 ml IV Total 50 ml Output Urine Total 600 ml 600 ml Drainage Total 800 ml # Voids 3 # Bowel Movements 0 0 Result Diagram: 01/11/17 0830 01/12/17 1532 Imaging Last Impressions Lumbar Puncture Fluoroscopy 01/12/17 0000 Signed Impressions: Service Date/Time: January 10:22 - CONCLUSION: Uncomplicated lumbar drain placement as above. Marco A Fagan MD Brain MRI 01/07/17 0000 Signed Impressions: Service Date/Time: Saturday, January 07, 2017 08:56 - CONCLUSION: 1. Mild ventriculomegaly out of proportion for degree of volume loss with mild diffuse periventricular transependymal edema concerning for normal pressure hydrocephalus. Clinical correlation is recommended. 2. Otherwise, no acute abnormality. Rigoberto Reis MD Head CT 01/06/17 1410 Signed Impressions: Service Date/Time: Friday, January 06, 2017 15:36 - CONCLUSION: Increasing ventricular prominence. Nonspecific but can be seen with normal pressure hydrocephalus. Jose Moreno MD FACR Chest X-Ray 01/06/171336 Signed Impressions: Service Date/Time: Friday, January 06, 2017 14:08 - CONCLUSION: 1. No acute cardiopulmonary disease. Abdiel Lerma MD CT Angiography [id number]/06/171336 Signed Impressions: Service Date/Time: Friday, January 06, 2017 15:42 - CONCLUSION: 1. No evidence of pulmonary embolism. 2. Coronary artery calcifications. Abdiel Lerma MD Objective Remarks GENERAL: Frail 81 yo F pleasantly confused, following commands. Alert and oriented by name and only. CARDIOVASCULAR: Regular rate and rhythm. RESPIRATORY: No accessory muscle use. Clear to auscultation. Breath sounds equal bilaterally. GASTROINTESTINAL: Abdomen soft, non-tender, nondistended. Hepatic and splenic margins not palpable. MUSCULOSKELETAL: Drain in the back in place, c/d/i. Extremities without clubbing , cyanosis, or edema. No obvious deformities. NEUROLOGICAL: Awake and alert. No obvious cranial nerve deficits. Motor grossly within normal limits. Five out of 5 muscle strength in the arms and legs. Normal speech. PSYCHIATRIC: Appropriate mood and affect; insight and judgment normal. Procedures L3-L4 drain placement by IR on 01/12/17 A/P Assessment and Plan Acute encephalopathy- possibly due to dehydration , UTI- seems to be improving- although still not oriented to time. continue with neuro-checks- neurology evaluation appreciated. Possible NPH MRI brain with possible NPH- neurology and neurosurgery evaluation appreciated. S/ p lumbar drain placement L3-L4 drain placement by IR on Hypernatremia- resolved- will monitor. Hypokalemia-replace with POtassium bucarbonate 50 nmEQ as Na si elevated. Will recheck BMP today. Monitor an replace as need. Sinus tachycardia- due to dehydration and hyperthyroidism-continue metoprolol- continue to monitor nonspecific elevation of troponin- no chest pain- likely due to tachycardia- UTI with E-coli- on antibiotic-will finish the course today. HTN-BP controlled- continue metoprolol- will monitor for now. DM2- accu-check with SSI. Hyperthyroidism: TSI pending - started on methimazole of note previously d/w who was following the patient in the past ( for diabetes); recommended starting methimazole and rest of the work-up as outpatient. History of H. pylori gastritis: continue home meds DVT prophylaxis with subq Lovenox ( on hold for planned procedure). PT consulted. Discharge Planning Lumbar drain placement by IR on 01/12/17 /DC planning to SNF when cleared by neurology and neurosurgery. Rosanna Naranjo MD Jan 13, 2017 11:50
[2017-01-13] MEDS: POTASSIUM CHLORIDE 25 MEQ EFFERVESCENT TAB PO ONE ×2 (12:50→13:00)
--- NOTE | 2017-01-13 13:47 | HHI.NSPN ---
(Maya Schreiber) Note Status Status: Progress Note (Maya Schreiber) Interval History Interval History Ms. Matthew is an 81 year-old female who is a very poor historian with no family at bedside. Her medical history is obtained partly from the patient and mainly from the medical records. She lives with her daughter who has Down syndrome and takes care of her daughter and a daughter has a ski lift operator who cooks for both the mother and the daughter. The family members think that she has not been doing well for several months and she was diagnosed with dementia and she has been shaking of the past several months. She was recently treated by her PCP for dehydration and received IV fluids and had a UTI in November. The patient was also noted to be in sinus tachycardia with a heart rate of 180.. CT of the brain showed ventriculomegaly. Neurosurgical consultation was requested 01/09. Remains confused at baseline. Family at bedside. 01/10: awaiting lumbar drain as patient was given aspirin yesterday. 01/12: pt seen this morning during rounds, preparing to be taken down to IR for lumbar drain placement, no new complaints. 01/13: s/p placement of lumbar drain yesterday. PT in room to ambulate patient - pt feels there is improvement in her gait. (Maya Schreiber) Labs, Micro, & Vital Signs Results Date Time Temp Pulse Resp B/P (MAP) Pulse Ox O2 Delivery O2 Flow Rate FiO2 01/13/17 10:26 98.0 114 16 134/63 (86) 99 01/13/17 08:25 96 01/13/17 01:18 97.8 107 18 129/75 (93) 96 01/12/17 20:54 98.2 111 18 152/68 (96) 99 01/12/17 19:00 109 01/12/17 17:00 98.1 75 20 137/72 (93) 99 Constitutional Vital Signs Date Time Temp Pulse Resp B/P (MAP) Pulse Ox O2 Delivery O2 Flow Rate FiO2 01/13/17 10:26 98.0 114 16 134/63 (86) 99 01/13/17 08:25 96 01/13/17 01:18 97.8 107 18 129/75 (93) 96 01/12/17 20:54 98.2 111 18 152/68 (96) 99 01/12/17 19:00 109 01/12/17 17:00 98.1 75 20 137/72 (93) 99 (Maya Schreiber) Physical Exam Ms Matthew is alert, no acute distress. Conversing. Cranial nerve examination: pupils equal, round, and reactive to light. Facial motor function appears symmetrical. Neck is soft and supple. Motor: Resting tremors. Moves both upper and lower extremities. Cerebellar examination is limited due to the patient condition Gait: ambulating with minimal assist, and with RW Lumbar drain intact. CSF clear. (Maya Schreiber) Ms Matthew is alert, no acute distress. Conversing. Cranial nerve examination: pupils equal, round, and reactive to light. Facial motor function appears symmetrical. Neck is soft and supple. Motor: Resting tremors. Moves both upper and lower extremities. Cerebellar examination is limited due to the patient condition Gait: ambulating with minimal assist, and with RW Lumbar drain intact. CSF clear. (Jose L Taveras MD) Medications Current Medications Current Medications Medications (Trade) Dose Ordered Sig/Jordan Route PRN Reason Start Time Stop Time Status Last Admin Dose Admin Sodium Chloride (NS Flush) 2 ml UNSCH PRN IV FLUSH FLUSH AFTER USING IV ACCESS 01/06/17 15:45 Sodium Chloride (NS Flush) 2 ml BID IV FLUSH 01/06/17 21:00 01/13/17 07:42 Naloxone HCl (Narcan Inj) 0.4 mg UNSCH PRN IV PUSH SEE LABEL COMMENTS 01/06/17 15:45 Enoxaparin Sodium (Lovenox Inj) 40 mg Q24H SQ 01/07/17 09:00 Future Hold 01/09/17 08:11 Dextrose (D50w (Vial) Inj) 50 ml UNSCH PRN IV PUSH HYPOGLYCEMIA-SEE COMMENTS 01/07/17 09:30 Glucagon (Glucagon Inj) 1 mg UNSCH PRN OTHER HYPOGLYCEMIA-SEE COMMENTS 01/07/17 09:30 Insulin Aspart (NovoLOG SUPPLEMENTAL SCALE) 1 ACHS SLIDING SCALE SQ 01/07/17 12:00 01/09/17 17:51 Aspirin (Ecotrin Ec) 81 mg DAILY PO 01/08/17 09:00 Future Hold 01/09/17 08:11 Atorvastatin Calcium (Lipitor) 40 mg HS PO 01/07/17 21:00 01/12/17 20:36 Bethanechol Chloride (Urecholine) 12.5 mg QID PO 01/07/17 13:00 01/13/17 12:50 Donepezil HCl (Aricept) 5 mg DAILY PO 01/08/17 09:00 01/13/17 07:42 Sucralfate (Carafate Liq) 1 gm TID@0600,1100,1600 PO 01/07/17 11:30 01/13/17 10:49 Pantoprazole Sodium (Protonix) 40 mg DAILY PO 01/08/17 09:00 01/13/17 07:42 Miscellaneous (Pill Splitter) 1 ea UNSCH PRN OTHER SEE LABEL COMMENTS 01/07/17 11:15 Methimazole (Tapazole) 5 mg Q12HR PO 01/11/17 10:30 01/13/17 07:42 Metoprolol Tartrate (Lopressor) 12.5 mg Q12HR PO 01/11/17 10:30 01/13/17 07:42 (Maya Schreiber) Medical Decision Making MDM Remarks 81 y/o female with suspected Normal Pressure Hydrocephalus, s/p placement of lumbar drain 01/12/17 PT evaluation - some improvement in gait (Maya Schreiber) Plan Plan Remarks gait evaluation noted today, will continue CSF draining until tomorrow am, dc drain in the morning, appreciate PT evaluation - cont daily evaluation and tx, reassess tomorrow (Maya Schreiber) Attending Statement Continue neuro checks. There is some improvement in her gait Pulmonary.. Continue aggressive pulmonary toilette, nasotracheal suction, and breathing treatments with nebulizers. Renal. monitor closely urine output, BUN and creatinine Endocrine. Monitor serial Acu checks and SSI as needed in detail ID monitor for signs of infection Protonix for stress ulcer prophylaxis (Jose L Taveras MD) Maya Schreiber Jan 13, 2017 13:47 Jose L Taveras MD Jan 17, 2017 16:37
[2017-01-13] MEDS: POTASSIUM CHLOR 20 MEQ PREMIX 100 ML IV SCH ×2 (15:02→17:04)
[2017-01-13] MEDS: ATORVASTATIN 40 MG TAB PO SCH (21:00)
[2017-01-14] VITALS (8 sets, daily range): BP systolic 138–150; BP diastolic 60–69; PULSE 75–143; RESP 16–18; TEMP 97.7–98.8; O2SAT 97–100
[2017-01-14] MEDS: SUCRALFATE 1 GM/10 ML CUP PO SCH ×3 (05:59→15:42)
[2017-01-14] MEDS: INSULIN ASPART SUPPLEMENTAL SCALE SQ SCH ×4 (07:54→21:00)
[2017-01-14] MEDS: METHIMAZOLE 5 MG TAB PO SCH ×2 (07:55→22:57)
[2017-01-14] MEDS: METOPROLOL TARTRATE 25 MG TAB PO SCH ×2 (08:01→22:57)
[2017-01-14] MEDS: DONEPEZIL HCL 5 MG TAB PO SCH (08:01)
[2017-01-14] MEDS: BETHANECHOL CHL 25 MG TAB PO SCH ×4 (08:01→22:57)
[2017-01-14] MEDS: PANTOPRAZOLE SOD 40 MG DELAYED RELEASE TAB PO SCH (08:02)
[2017-01-14] MEDS: SODIUM CHLORIDE 0.9% FLUSH 10 ML FLUSH IV FLUSH SCH ×2 (08:02→22:58)
--- NOTE | 2017-01-14 10:00 | HHI.PR ---
Subjective Remarks With abdominal pain , diarrhea. Patient also removed her drain from the back. She is complaining of headache. She is also complaining of some abdominal pain, diffuse. No fever or chills. No n/v/c. Objective Vitals Vital Signs Date Time Temp Pulse Resp B/P (MAP) Pulse Ox O2 Delivery O2 Flow Rate FiO2 01/14/17 08:17 97.8 75 16 142/60 (87) 99 01/14/17 05:01 98.8 116 18 138/64 (88) 97 01/14/17 01:15 118 01/14/17 00:46 97.7 129 18 145/67 (93) 99 01/13/17 20:12 98.0 116 18 131/58 (82) 95 01/13/17 19:00 102 01/13/17 18:26 98.5 124 18 110/67 (81) 100 01/13/17 14:24 98.3 111 18 145/67 (93) 100 01/13/17 10:26 98.0 114 16 134/63 (86) 99 I/O 01/13/17 01/13/17 01/13/17 01/14/17 01/14/17 01/14/17 07:00 15:00 23:00 07:00 15:00 23:00 Intake Total 200 ml Output Total 1400 ml 55 ml Balance -1400 ml 145 ml IV Total 200 ml Output Urine Total 600 ml Drainage Total 800 ml 55 ml # Voids 3 1 # Bowel Movements 0 Result Diagram: 01/11/17 0830 01/14/17 0830 Imaging Last Impressions Lumbar Puncture Fluoroscopy 01/12/17 0000 Signed Impressions: Service Date/Time: January 10:22 - CONCLUSION: Uncomplicated lumbar drain placement as above. Marco A Fagan MD Brain MRI 01/07/17 0000 Signed Impressions: Service Date/Time: Saturday, January 07, 2017 08:56 - CONCLUSION: 1. Mild ventriculomegaly out of proportion for degree of volume loss with mild diffuse periventricular transependymal edema concerning for normal pressure hydrocephalus. Clinical correlation is recommended. 2. Otherwise, no acute abnormality. Rigoberto Reis MD Head CT 01/06/17 1410 Signed Impressions: Service Date/Time: Friday, January 06, 2017 15:36 - CONCLUSION: Increasing ventricular prominence. Nonspecific but can be seen with normal pressure hydrocephalus. Jose Moreno MD FACR Chest X-Ray [id number]/06/[id number] Signed Impressions: Service Date/Time: Friday, January 06, 2017 14:08 - CONCLUSION: 1. No acute cardiopulmonary disease. Abdiel Lerma MD CT Angiography [id number]/06/[id number] Signed Impressions: Service Date/Time: Friday, January 06, 2017 15:42 - CONCLUSION: 1. No evidence of pulmonary embolism. 2. Coronary artery calcifications. Abdiel Lerma MD Objective Remarks GENERAL: Frail 81 yo F pleasantly confused, following commands. Alert and oriented by name and only. CARDIOVASCULAR: Regular rate and rhythm. RESPIRATORY: No accessory muscle use. Clear to auscultation. Breath sounds equal bilaterally. GASTROINTESTINAL: Abdomen soft, diffused tenderness, nondistended. Hepatic and splenic margins not palpable. MUSCULOSKELETAL: Drain in the back pulled, dressing c/d/i. Extremities without clubbing, cyanosis, or edema. No obvious deformities. NEUROLOGICAL: Awake and alert. No obvious cranial nerve deficits. Motor grossly within normal limits. Five out of 5 muscle strength in the arms and legs. Normal speech. PSYCHIATRIC: Appropriate mood and affect; insight and judgment normal. Procedures L3-L4 drain placement by IR on 01/12/17 A/P Assessment and Plan Acute encephalopathy- possibly due to dehydration , UTI- seems to be improving- although still not oriented to time. continue with neuro-checks- neurology evaluation appreciated. Drain from back removed, per neurosurgery patient might need a shunt Possible NPH MRI brain with possible NPH- neurology and neurosurgery evaluation appreciated. S/ p lumbar drain placement L3-L4 drain placement by IR on Hypernatremia- resolved- will monitor. Hypokalemia-replace with Potassium bicarbonate 50 mEQ as Na si elevated. Will recheck BMP today. Monitor an replace as need. Abdominal pain/diarrhea: CT abd pelvis. Will order ammonia. Check C diff. Sinus tachycardia- due to dehydration and hyperthyroidism-continue metoprolol- continue to monitor nonspecific elevation of troponin- no chest pain- likely due to tachycardia- UTI with E-coli- on antibiotic-will finish the course today. HTN-BP controlled- continue metoprolol- will monitor for now. DM2- accu-check with SSI. Hyperthyroidism: TSI pending - started on methimazole of note previously d/w who was following the patient in the past ( for diabetes); recommended starting methimazole and rest of the work-up as outpatient. History of H. pylori gastritis: continue home meds Patient now with bd pain , nausea, diarrhea Will do Abd Ct. Start lactobacilus, check for C diff. DVT prophylaxis with subq Lovenox ( on hold for planned procedure). PT consulted. Discharge Planning Lumbar drain placement by IR on 01/12/17 /DC planning to SNF when cleared by neurology and neurosurgery. Patient now with bd pain , nausea, diarrhea Will do Abd Ct. Start lactobacilus, check for C diff. Rosanna Naranjo MD Jan 14, 2017 10:00
--- NOTE | 2017-01-14 11:27 | HHI.NSPN ---
History Interval History Ms. Matthew is an 81 year-old female who is a very poor historian with no family at bedside. Her medical history is obtained partly from the patient and mainly from the medical records. She lives with her daughter who has Down syndrome and takes care of her daughter and a daughter has a personal financial counselor who cooks for both the mother and the daughter. The family members think that she has not been doing well for several months and she was diagnosed with dementia and she has been shaking of the past several months. She was recently treated by her PCP for dehydration and received IV fluids and had a UTI in November. The patient was also noted to be in sinus tachycardia with a heart rate of 180.. CT of the brain showed ventriculomegaly. Neurosurgical consultation was requested 01/09. Remains confused at baseline. Family at bedside. 01/10: awaiting lumbar drain as patient was given aspirin yesterday. 01/12: pt seen this morning during rounds, preparing to be taken down to IR for lumbar drain placement, no new complaints. 01/13: s/p placement of lumbar drain. PT in room to ambulate patient - pt feels there is improvement in her gait. 01/14: Patient is awake and alert. Lumbar drain putting out clear fluid. She has mild headache this morning. Exam Results Vital Signs Date Time Temp Pulse Resp B/P (MAP) Pulse Ox O2 Delivery O2 Flow Rate FiO2 01/14/17 08: 97.8 75 16 142/60 (87) 99 01/12/17 09:00 Room Air Physical Examination Ms Matthew is alert, no acute distress. Conversing. Cranial nerve examination: pupils equal, round, and reactive to light. Facial motor function appears symmetrical. Neck is soft and supple. Motor: Resting tremors. Moves both upper and lower extremities. Cerebellar examination is limited due to the patient condition Gait: ambulating with minimal assist, and with RW Lumbar drain intact. CSF clear. Lab, Micro, Other Results Laboratory Tests Test 01/14/17 08:30 Random Glucose 77 Date/Time Source Procedure Growth Status 01/06/17 21:33 Blood Peripheral Aerobic Blood Culture - Final NO GROWTH IN 5 DAYS Complete 01/06/17 21:33 Blood Peripheral Anaerobic Blood Culture - Final NO GROWTH IN 5 DAYS Complete 01/06/17 14:31 Urine Clean Catch Urine Culture - Final Escherichia Coli Complete Medical Decision Making Impression and Plan Assessment: Rule out NPH. Status post placement of temporary lumbar drain. Plan: Lumbar drain will be discontinued later this afternoon. Can then evaluate for improvement in gait with PT. Maik Morgan MD Jan 14, 2017 11:27
[2017-01-14] MEDS ORDERED: DIATRIZOATE MEGLUM/DIATRIZOATE SOD 9 ML CUP PO ONE (11:30)
[2017-01-14] MEDS ORDERED: GETGO ROLLING W1 MI1 (12:39)
[2017-01-14] MEDS: NYSTATIN 100,000 U/GM PWD 15 GM BTL TOPICAL SCH ×2 (13:02→22:58)
[2017-01-14] MEDS: ACETAMINOPHEN 325 MG TAB PO PRN (13:02)
[2017-01-14 14:10] LABS: MAGNESIUM 1.5 MG/DL (1.5-2.5); POTASSIUM 3.8 MEQ/L (3.5-5.1)
[2017-01-14] MEDS: LACTOBACILLUS ACIDOPHILUS TAB PO SCH (22:57)
[2017-01-14] MEDS: ATORVASTATIN 40 MG TAB PO SCH (22:57)
[2017-01-14] MEDS ORDERED: IOHEXOL 350 MG/ML 10 ML VIAL (for RAD DIAG) IVCONTRAST ONE (23:59)
[2017-01-15] VITALS (9 sets, daily range): BP systolic 141–190; BP diastolic 58–79; PULSE 74–122; RESP 16–20; TEMP 97.3–98.2; O2SAT 97–100
--- NOTE | 2017-01-15 00:37 | RADRPT ---
EXAM DATE/TIME: 01/14/2017 23:58 [facility] COMPARISON: CT ABDOMEN & PELVIS W CONTRAST, November 24, 2016, 15:00. INDICATIONS : Abdominal pain. IV CONTRAST: 50 cc Omnipaque 350 (iohexol) IV ORAL CONTRAST: Prescribed oral contrast ingested. RADIATION DOSE: 4.59 CTDIvol (mGy) MEDICAL HISTORY : Cardiovascular disease. Hypertension. Diabetes mellitus type 2. SURGICAL HISTORY : Appendectomy. Cholecystectomy.Tubal ligation. ENCOUNTER: Initial ACUITY: 1 day PAIN SCALE: 4/10 LOCATION: Bilateral abdomen TECHNIQUE: Volumetric scanning of the abdomen and pelvis was performed. Using automated exposure control and ad justment of the mA and/or kV according to patient size, radiation dose was kept as low as reasonably achievable to obtain optimal diagnostic quality images. DICOM format image data is available electro nically for review and comparison. FINDINGS: Examination of the lung bases demonstrates no abnormality. No pleural fluid is identified. No pulmona ry nodules are present. Coronary artery calcifications are present. The liver and spleen are normal i n size and no focal defects are identified. The gallbladder is absent. The pancreas demonstrates norm al contour without evidence of mass or ductal dilatation. The intrahepatic ducts and common bile duct are prominent which may reflect reservoir effect. The adrenal glands and kidneys appear normal bilat erally. No hydronephrosis or mass lesions are identified. Examination of the pelvis demonstrates no evidence of free fluid or pelvic mass. No abnormally enlarg ed inguinal or retroperitoneal lymph nodes are present. The bladder is unremarkable. There is diverti culosis without evidence of diverticulitis. CONCLUSION: 1. No evidence of acute abdominal or pelvic process. No masses are identified. 2. Diverticulosis without evidence of diverticulitis. Franki Winkler MD on January 15, 2017 at 0:31 Board Certified Radiologist. This report was verified electronically.
[2017-01-15] MEDS: ACETAMINOPHEN 325 MG TAB PO PRN ×2 (04:50→11:26)
[2017-01-15] MEDS: SUCRALFATE 1 GM/10 ML CUP PO SCH ×3 (05:03→15:26)
[2017-01-15 07:23] LABS: AUTOMATED NEUTROPHIL # 4.5 TH/MM3 (1.8-7.7); BASOPHIL % 0.4 % (0.0-2.0); EOSINOPHIL # 0.1 TH/MM3 (0-0.4); EOSINOPHIL % 1.4 % (0.0-4.0); HEMATOCRIT 32.8 % (35.0-46.0); HEMO FLAGS DIFF FINAL; LYMPH % 21.5 % (9.0-44.0); LYMPHOCYTE # 1.6 TH/MM3 (1.0-4.8); MEAN CELL VOLUME 93.4 FL (80.0-100.0); MEAN CORPUSCULAR HEMOGLOBIN 32.2 PG (27.0-34.0); MEAN CORPUSCULAR HGB CONC 34.4 % (32.0-36.0); NEUT % 62.7 % (16.0-70.0); PLATELET COUNT 208 TH/MM3 (150-450); RED BLOOD COUNT 3.51 MIL/MM3 (4.00-5.30); RED CELL DISTRIBUTION WIDTH 15.3 % (11.6-17.2); WHITE BLOOD COUNT 7.2 TH/MM3 (4.0-11.0)
[2017-01-15] MEDS: INSULIN ASPART SUPPLEMENTAL SCALE SQ SCH ×4 (07:28→20:20)
[2017-01-15 07:37] LABS: MAGNESIUM 1.7 MG/DL (1.5-2.5); POTASSIUM 3.4 MEQ/L (3.5-5.1)
[2017-01-15] MEDS: PANTOPRAZOLE SOD 40 MG DELAYED RELEASE TAB PO SCH (07:42)
[2017-01-15] MEDS: NYSTATIN 100,000 U/GM PWD 15 GM BTL TOPICAL SCH ×2 (07:42→22:11)
[2017-01-15] MEDS: BETHANECHOL CHL 25 MG TAB PO SCH ×4 (07:42→21:00)
[2017-01-15] MEDS: LACTOBACILLUS ACIDOPHILUS TAB PO SCH ×2 (07:42→21:00)
[2017-01-15] MEDS: DONEPEZIL HCL 5 MG TAB PO SCH (07:42)
[2017-01-15] MEDS: METHIMAZOLE 5 MG TAB PO SCH ×2 (07:42→21:00)
[2017-01-15] MEDS: METOPROLOL TARTRATE 25 MG TAB PO SCH ×2 (07:42→21:00)
[2017-01-15] MEDS: SODIUM CHLORIDE 0.9% FLUSH 10 ML FLUSH IV FLUSH SCH ×2 (07:43→22:12)
--- NOTE | 2017-01-15 10:44 | HHI.NSPN ---
History Interval History Ms. Matthew is an 81 year-old female who is a very poor historian with no family at bedside. Her medical history is obtained partly from the patient and mainly from the medical records. She lives with her daughter who has Down syndrome and takes care of her daughter and a daughter has a medical investigator who cooks for both the mother and the daughter. The family members think that she has not been doing well for several months and she was diagnosed with dementia and she has been shaking of the past several months. She was recently treated by her PCP for dehydration and received IV fluids and had a UTI in November. The patient was also noted to be in sinus tachycardia with a heart rate of 180.. CT of the brain showed ventriculomegaly. Neurosurgical consultation was requested 01/09. Remains confused at baseline. Family at bedside. 01/10: awaiting lumbar drain as patient was given aspirin yesterday. 01/12: pt seen this morning during rounds, preparing to be taken down to IR for lumbar drain placement, no new complaints. 01/13: s/p placement of lumbar drain. PT in room to ambulate patient - pt feels there is improvement in her gait. 01/14: Patient is awake and alert. Lumbar drain putting out clear fluid. She has mild headache this morning. 01/15: Mrs. Matthew is awake and alert this morning. No complaints of headache. Subdural drain was removed yesterday. She is ambulating and does note some improvement in her walking. She is requesting discharge today. Exam Results Vital Signs Date Time Temp Pulse Resp B/P (MAP) Pulse Ox O2 Delivery O2 Flow Rate FiO2 01/15/17 09:28 74 01/15/17 08:50 97.3 16 172/75 (107) 99 01/12/17 09:00 Room Air Physical Examination Ms Matthew is alert, no acute distress. Conversing. Cranial nerve examination: pupils equal, round, and reactive to light. Facial motor function appears symmetrical. Neck is soft and supple. Motor: Resting tremors. Moves both upper and lower extremities. Cerebellar examination is limited due to the patient condition Gait: ambulating with minimal assist, and with RW Lab, Micro, Other Results Laboratory Tests Test 01/14/17 13:26 01/15/17 06:46 Blood Urea Nitrogen 14 15 Creatinine 0.38 0.38 Random Glucose 102 101 Calcium Level 8.4 8.5 Magnesium Level 1.5 1.7 Sodium Level 143 141 Potassium Level 3.8 3.4 Chloride Level 108 108 Carbon Dioxide Level 22.0 25.0 Anion Gap 13 8 Estimat Glomerular Filtration Rate 163 163 White Blood Count 7.2 Red Blood Count 3.51 Hemoglobin 11.3 Hematocrit 32.8 Mean Corpuscular Volume 93.4 Mean Corpuscular Hemoglobin 32.2 Mean Corpuscular Hemoglobin Concent 34.4 Red Cell Distribution Width 15.3 Platelet Count 208 Mean Platelet Volume 8.5 Neutrophils (%) (Auto) 62.7 Lymphocytes (%) (Auto) 21.5 Monocytes (%) (Auto) 14.0 Eosinophils (%) (Auto) 1.4 Basophils (%) (Auto) 0.4 Neutrophils # (Auto) 4.5 Lymphocytes # (Auto) 1.6 Monocytes # (Auto) 1.0 Eosinophils # (Auto) 0.1 Basophils # (Auto) 0.0 CBC Comment DIFF FINAL Differential Comment Date/Time Source Procedure Growth Status 01/06/17 21:33 Blood Peripheral Aerobic Blood Culture - Final NO GROWTH IN 5 DAYS Complete 01/06/17 21:33 Blood Peripheral Anaerobic Blood Culture - Final NO GROWTH IN 5 DAYS Complete 01/06/17 14:31 Urine Clean Catch Urine Culture - Final Escherichia Coli Complete Medical Decision Making Impression and Plan Assessment: Rule out NPH. Status post placement of temporary lumbar drain with subjective improvement in gait. Plan: Patient may be discharged today and follow up with Dr. Taveras on an outpatient basis to discuss further plans for surgical intervention. Maik Morgan MD Jan 15, 2017 10:44
--- NOTE | 2017-01-15 10:59 | HHI.PR ---
Subjective Remarks Patient is pleasantly confused. Says she wants to go home. She has abdominal pain, nausea but did not vomit. Has diarrhea yesterday and none today. She is not eating per nurse. Denies fever or chills. Objective Vitals Vital Signs Date Time Temp Pulse Resp B/P (MAP) Pulse Ox O2 Delivery O2 Flow Rate FiO2 01/15/17 09:28 74 01/15/17 08:50 97.3 104 16 172/75 (107) 99 01/15/17 04:47 97.3 80 18 156/69 (98) 100 01/15/17 01:43 98.1 80 18 150/68 (95) 99 01/15/17 01:38 98.2 118 18 168/79 (108) 99 01/14/17 22:09 97.7 143 18 142/66 (91) 100 01/14/17 18:00 110 01/14/17 16:15 98.0 107 16 150/69 (96) 100 01/14/17 12:39 98.3 84 16 143/63 (89) 100 I/O 01/14/17 01/14/17 01/14/17 01/15/17 01/15/17 01/15/17 07:00 15:00 23:00 07:00 15:00 23:00 # Voids 1 1 Result Diagram: 01/15/17 0646 01/15/17 0646 Imaging Last Impressions Abdomen/Pelvis CT 01/14/17 0000 Signed Impressions: Service Date/Time: Saturday, January 14, 2017 23:58 - CONCLUSION: 1. No evidence of acute abdominal or pelvic process. No masses are identified. 2. Diverticulosis without evidence of diverticulitis. Franki Winkler MD Lumbar Puncture Fluoroscopy 01/12/17 0000 Signed Impressions: Service Date/Time: January 10:22 - CONCLUSION: Uncomplicated lumbar drain placement as above. Marco A Fagan MD Brain MRI 01/07/17 0000 Signed Impressions: Service Date/Time: Saturday, January 07, 2017 08:56 - CONCLUSION: 1. Mild ventriculomegaly out of proportion for degree of volume loss with mild diffuse periventricular transependymal edema concerning for normal pressure hydrocephalus. Clinical correlation is recommended. 2. Otherwise, no acute abnormality. Rigoberto Reis MD Head CT 01/06/17 1410 Signed Impressions: Service Date/Time: Friday, January 06, 2017 15:36 - CONCLUSION: Increasing ventricular prominence. Nonspecific but can be seen with normal pressure hydrocephalus. Jose Moreno MD FACR Chest X-Ray 01/06/171336 Signed Impressions: Service Date/Time: Friday, January 06, 2017 14:08 - CONCLUSION: 1. No acute cardiopulmonary disease. Abdiel Lerma MD CT Angiography 01/06/171336 Signed Impressions: Service Date/Time: Friday, January 06, 2017 15:42 - CONCLUSION: 1. No evidence of pulmonary embolism. 2. Coronary artery calcifications. Abdiel Lerma MD Objective Remarks GENERAL: Frail 81 yo F pleasantly confused, following commands. Alert and oriented by name and only. CARDIOVASCULAR: Regular rate and rhythm. RESPIRATORY: No accessory muscle use. Clear to auscultation. Breath sounds equal bilaterally. GASTROINTESTINAL: Abdomen soft, diffused tenderness, nondistended. Hepatic and splenic margins not palpable. MUSCULOSKELETAL: Drain in the back pulled, dressing c/d/i. Extremities without clubbing, cyanosis, or edema. No obvious deformities. NEUROLOGICAL: Awake and alert. No obvious cranial nerve deficits. Motor grossly within normal limits. Five out of 5 muscle strength in the arms and legs. Normal speech. PSYCHIATRIC: Appropriate mood and affect; insight and judgment normal. Procedures L3-L4 drain placement by IR on 01/12/17 A/P Assessment and Plan Acute encephalopathy- possibly due to dehydration , UTI- seems to be improving- although still not oriented to time. continue with neuro-checks- neurology evaluation appreciated. Noted more confused today. Will check ammonia, cbc, bmp Drain from back removed, per neurosurgery patient might need a shunt Possible NPH MRI brain with possible NPH- neurology and neurosurgery evaluation appreciated. S/ p lumbar drain placement L3-L4 drain placement by IR on Hypernatremia- resolved- will monitor. Hypokalemia-replace with Potassium bicarbonate 50 mEQ as Na si elevated. Will recheck BMP today. Monitor an replace as need. Abdominal pain/diarrhea: CT abd pelvis reviewed with diverticulosis. Will order ammonia. Check C diff. Continue probiotic. Sinus tachycardia- due to dehydration and hyperthyroidism-continue metoprolol- continue to monitor nonspecific elevation of troponin- no chest pain- likely due to tachycardia- UTI with E-coli- on antibiotic-will finish the course today. HTN-BP controlled- continue metoprolol- will monitor for now. DM2- accu-check with SSI. Hyperthyroidism: TSI pending - started on methimazole of note previously d/w who was following the patient in the past ( for diabetes); recommended starting methimazole and rest of the work-up as outpatient. History of H. pylori gastritis: continue home meds Patient now with bd pain , nausea, diarrhea Will do Abd Ct. Start lactobacilus, check for C diff. DVT prophylaxis with subq Lovenox ( on hold for planned procedure). PT consulted. Discharge Planning Lumbar drain placement by IR on 01/12/17. Drain removed on 01/14/17. DC planning to SNF poss tomorrow. Patient is confused at this time. Patient now with bd pain , nausea, diarrhea. Abd Ct.reviewed with diverticulosis. Start lactobacilus, check for C diff. Discussed with the patient,nurse, Dr Morgan neurosurgery Rosanna Naranjo MD Jan 15, 2017 10:59
[2017-01-15] MEDS: POTASSIUM CHLORIDE 10 MEQ CONTROLLED RELEASE TAB PO ONE ×2 (11:15→11:26)
[2017-01-15] MEDS ORDERED: ONDANSETRON HCL 4 MG/2 ML VIAL IVP PRN (11:45)
[2017-01-15] MEDS ORDERED: LACTULOSE SYRUP 20 GM/30 ML CUP PO PRN (11:45)
[2017-01-15] MEDS ORDERED: SENNOSIDES 8.6 MG TAB PO PRN (11:45)
[2017-01-15] MEDS ORDERED: BISACODYL 10 MG SUPP RECTAL PRN (11:45)
[2017-01-15] MEDS ORDERED: ENALAPRILAT 2.5 MG/2 ML VIAL IV PUSH PRN (11:45)
[2017-01-15] MEDS ORDERED: PROCHLORPERAZINE 25 MG SUPP RECTAL PRN (11:45)
[2017-01-15] MEDS ORDERED: NALOXONE HCL 0.4 MG/ML AMP IV PUSH PRN (11:45)
[2017-01-15] MEDS ORDERED: MAGNESIUM HYDROXIDE SUSP 30 ML CUP PO PRN (11:45)
[2017-01-15] MEDS: POTASSIUM CHLOR 20 MEQ PREMIX 100 ML IV SCH ×2 (11:51→15:26)
[2017-01-15] MEDS ORDERED: diphenhydrAMINE HCL 50 MG/ML VIAL IV PUSH PRN (16:45)
[2017-01-15] MEDS: ATORVASTATIN 40 MG TAB PO SCH (21:00)
[2017-01-15] MEDS: DOCUSATE SODIUM 50 MG/SENNA 8.6 MG TAB PO SCH (21:00)
[2017-01-15] MEDS ORDERED: DEXT 5%-NACL 0.45% 1000 ML INJ 1,000 ML IV SCH (21:45)
[2017-01-16 01:23] VITALS: BP 135/63; PULSE 90; RESP 18; TEMP 98.1; O2SAT 99
[2017-01-16] MEDS: SUCRALFATE 1 GM/10 ML CUP PO SCH ×3 (05:28→16:27)
[2017-01-16 05:35] VITALS: BP 146/66; PULSE 78; RESP 18; TEMP 97.7; O2SAT 98
[2017-01-16 07:20] LABS: AUTOMATED NEUTROPHIL # 3.2 TH/MM3 (1.8-7.7); BASOPHIL % 0.4 % (0.0-2.0); EOSINOPHIL # 0.4 TH/MM3 (0-0.4); EOSINOPHIL % 5.9 % (0.0-4.0); HEMATOCRIT 32.2 % (35.0-46.0); HEMO FLAGS DIFF FINAL; LYMPH % 30.5 % (9.0-44.0); LYMPHOCYTE # 2.1 TH/MM3 (1.0-4.8); MEAN CELL VOLUME 93.9 FL (80.0-100.0); MEAN CORPUSCULAR HEMOGLOBIN 31.3 PG (27.0-34.0); MEAN CORPUSCULAR HGB CONC 33.4 % (32.0-36.0); MONO % 16.3 % (0.0-8.0); NEUT % 46.9 % (16.0-70.0); PLATELET COUNT 206 TH/MM3 (150-450); RED BLOOD COUNT 3.43 MIL/MM3 (4.00-5.30); RED CELL DISTRIBUTION WIDTH 14.9 % (11.6-17.2); WHITE BLOOD COUNT 6.8 TH/MM3 (4.0-11.0)
[2017-01-16 07:48] LABS: BICARBONATE 24.2 MEQ/L (21.0-32.0); MAGNESIUM 1.5 MG/DL (1.5-2.5); POTASSIUM 3.5 MEQ/L (3.5-5.1)
[2017-01-16] MEDS: INSULIN ASPART SUPPLEMENTAL SCALE SQ SCH ×3 (08:00→16:28)
[2017-01-16] MEDS: LACTOBACILLUS ACIDOPHILUS TAB PO SCH (08:43)
[2017-01-16] MEDS: BETHANECHOL CHL 25 MG TAB PO SCH ×2 (08:43→13:00)
[2017-01-16] MEDS: PANTOPRAZOLE SOD 40 MG DELAYED RELEASE TAB PO SCH (08:43)
[2017-01-16] MEDS: METHIMAZOLE 5 MG TAB PO SCH (08:43)
[2017-01-16] MEDS: METOPROLOL TARTRATE 25 MG TAB PO SCH (08:43)
[2017-01-16] MEDS: DONEPEZIL HCL 5 MG TAB PO SCH (08:43)
[2017-01-16] MEDS: ACETAMINOPHEN 325 MG TAB PO PRN (08:47)
[2017-01-16] MEDS: DOCUSATE SODIUM 50 MG/SENNA 8.6 MG TAB PO SCH (08:50)
[2017-01-16] MEDS: SODIUM CHLORIDE 0.9% FLUSH 10 ML FLUSH IV FLUSH SCH (08:51)
[2017-01-16] MEDS: NYSTATIN 100,000 U/GM PWD 15 GM BTL TOPICAL SCH (08:52)
[2017-01-16 08:54] VITALS: BP 151/67; PULSE 77; RESP 16; TEMP 97.4; O2SAT 99
[2017-01-16 09:48] VITALS: PULSE 85
--- NOTE | 2017-01-16 10:54 | HHI.PR ---
Subjective Remarks Patien tin bed appears in nad. Says she has itchy skin. She is pleasantly cinfused. Deneis any williamson at this time. No n/v/d/c. Eating better per nurse and has less nausea and vomiting. Objective Vitals Vital Signs Date Time Temp Pulse Resp B/P (MAP) Pulse Ox O2 Delivery O2 Flow Rate FiO2 01/16/17 09:48 85 01/16/17 08:54 97.4 77 16 151/67 (95) 99 01/16/17 05:35 97.7 78 18 146/66 (92) 98 01/16/17 01:23 98.1 90 18 135/63 (87) 99 01/15/17 20:30 98.1 122 20 141/58 (85) 99 01/15/17 18:00 115 01/15/17 16:54 97.7 77 16 161/64 (96) 97 01/15/17 12:56 98.2 99 16 190/77 (114) 100 I/O 01/15/17 01/15/17 01/15/17 01/16/17 01/16/17 01/16/17 07:00 15:00 23:00 07:00 15:00 23:00 Intake Total 100 ml Balance 100 ml IV Total 100 ml # Voids 1 2 1 # Bowel Movements 1 Result Diagram: 01/16/17 0654 01/16/17 0654 Imaging Last Impressions Abdomen/Pelvis CT 01/14/17 0000 Signed Impressions: Service Date/Time: Saturday, January 14, 2017 23:58 - CONCLUSION: 1. No evidence of acute abdominal or pelvic process. No masses are identified. 2. Diverticulosis without evidence of diverticulitis. Franki Winkler MD Lumbar Puncture Fluoroscopy 01/12/17 0000 Signed Impressions: Service Date/Time: January 10:22 - CONCLUSION: Uncomplicated lumbar drain placement as above. Marco A Fagan MD Brain MRI 01/07/17 0000 Signed Impressions: Service Date/Time: Saturday, January 07, 2017 08:56 - CONCLUSION: 1. Mild ventriculomegaly out of proportion for degree of volume loss with mild diffuse periventricular transependymal edema concerning for normal pressure hydrocephalus. Clinical correlation is recommended. 2. Otherwise, no acute abnormality. Rigoberto Reis MD Head CT 01/06/17 1410 Signed Impressions: Service Date/Time: Friday, January 06, 2017 15:36 - CONCLUSION: Increasing ventricular prominence. Nonspecific but can be seen with normal pressure hydrocephalus. Jose Moreno MD FACR Chest X-Ray [id number]/06/[id number] Signed Impressions: Service Date/Time: Friday, January 06, 2017 14:08 - CONCLUSION: 1. No acute cardiopulmonary disease. Abdiel Lerma MD CT Angiography [id number]/06/[id number] Signed Impressions: Service Date/Time: Friday, January 06, 2017 15:42 - CONCLUSION: 1. No evidence of pulmonary embolism. 2. Coronary artery calcifications. Abdiel Lerma MD Objective Remarks GENERAL: Frail 81 yo F pleasantly confused, following commands. Alert and oriented by name and only. CARDIOVASCULAR: Regular rate and rhythm. RESPIRATORY: No accessory muscle use. Clear to auscultation. Breath sounds equal bilaterally. GASTROINTESTINAL: Abdomen soft, diffused tenderness, nondistended. Hepatic and splenic margins not palpable. MUSCULOSKELETAL: Drain in the back pulled, dressing c/d/i. Extremities without clubbing, cyanosis, or edema. No obvious deformities. NEUROLOGICAL: Awake and alert. No obvious cranial nerve deficits. Motor grossly within normal limits. Five out of 5 muscle strength in the arms and legs. Normal speech. PSYCHIATRIC: Appropriate mood and affect; insight and judgment normal. Procedures L3-L4 drain placement by IR on 01/12/17 A/P Assessment and Plan Acute encephalopathy- possibly due to dehydration , UTI- seems to be improving- although still not oriented to time. continue with neuro-checks- neurology evaluation appreciated. Noted more confused today. Will check ammonia, cbc, bmp Drain from back removed, per neurosurgery patient might need a shunt Possible NPH MRI brain with possible NPH- neurology and neurosurgery evaluation appreciated. S/ p lumbar drain placement L3-L4 drain placement by IR on Hypernatremia- resolved- will monitor. Hypokalemia-replace with Potassium bicarbonate 50 mEQ as Na si elevated. Will recheck BMP today. Monitor an replace as need. Abdominal pain/diarrhea: CT abd pelvis reviewed with diverticulosis. Will order ammonia. Check C diff. Continue probiotic. Sinus tachycardia- due to dehydration and hyperthyroidism-continue metoprolol- continue to monitor nonspecific elevation of troponin- no chest pain- likely due to tachycardia- UTI with E-coli- on antibiotic-will finish the course today. HTN-BP controlled- continue metoprolol- will monitor for now. DM2- accu-check with SSI. Hyperthyroidism: TSI pending - started on methimazole of note previously d/w who was following the patient in the past ( for diabetes); recommended starting methimazole and rest of the work-up as outpatient. History of H. pylori gastritis: continue home meds Patient now with bd pain , nausea, diarrhea Will do Abd Ct. Start lactobacilus, check for C diff. DVT prophylaxis with subq Lovenox ( on hold for planned procedure). PT consulted. Discharge Planning Lumbar drain placement by IR on 01/12/17. Drain removed on 01/14/17. DC planning to SNF poss tomorrow. Patient is confused at this time. Patient now with bd pain , nausea, diarrhea. Abd Ct.reviewed with diverticulosis. Start lactobacilus, check for C diff. Discussed with the patient, nurse, Shona CABEZAS and Dr Taveras from neurosurgery Plan for DYNAMOMETER TESTER shunt placement tomorrow. Consent to be obtained Rosanna Naranjo MD Jan 16, 2017 10:54
[2017-01-16] MEDS ORDERED: LACTULOSE SYRUP 20 GM/30 ML CUP PO ONE (11:30)
[2017-01-16] MEDS ORDERED: MAGNESIUM OXIDE 400 MG TAB PO ONE (11:45)
[2017-01-16 12:19] VITALS: BP 134/71; PULSE 68; RESP 16; TEMP 97.4; O2SAT 100
--- NOTE | 2017-01-16 14:46 | HHI.NSPN ---
(Maya Schreiber) Note Status Status: Progress Note (Maya Schreiber) Interval History Interval History Ms. Matthew is an 81 year-old female who is a very poor historian with no family at bedside. Her medical history is obtained partly from the patient and mainly from the medical records. She lives with her daughter who has Down syndrome and takes care of her daughter and a daughter has a strategic insights lead who cooks for both the mother and the daughter. The family members think that she has not been doing well for several months and she was diagnosed with dementia and she has been shaking of the past several months. She was recently treated by her PCP for dehydration and received IV fluids and had a UTI in November. The patient was also noted to be in sinus tachycardia with a heart rate of 180.. CT of the brain showed ventriculomegaly. Neurosurgical consultation was requested 01/09. Remains confused at baseline. Family at bedside. 01/10: awaiting lumbar drain as patient was given aspirin yesterday. 01/12: pt seen this morning during rounds, preparing to be taken down to IR for lumbar drain placement, no new complaints. 01/13: s/p placement of lumbar drain yesterday. PT in room to ambulate patient - pt feels there is improvement in her gait. 01/16: she is requesting to go home, PT evaluation notes improvement in gait. (Maya Schreiber) Labs, Micro, & Vital Signs Results Date Time Temp Pulse Resp B/P (MAP) Pulse Ox O2 Delivery O2 Flow Rate FiO2 01/16/17 12:19 97.4 68 16 134/71 (92) 100 01/16/17 09:48 85 01/16/17 08:54 97.4 77 16 151/67 (95) 99 01/16/17 05:35 97.7 78 18 146/66 (92) 98 01/16/17 01:23 98.1 90 18 135/63 (87) 99 01/15/17 20:30 98.1 122 20 141/58 (85) 99 01/15/17 18:00 115 01/15/17 16:54 97.7 77 16 161/64 (96) 97 Constitutional Vital Signs Date Time Temp Pulse Resp B/P (MAP) Pulse Ox O2 Delivery O2 Flow Rate FiO2 01/16/17 12:19 97.4 68 16 134/71 (92) 100 01/16/17 09:48 85 01/16/17 08:54 97.4 77 16 151/67 (95) 99 01/16/17 05:35 97.7 78 18 146/66 (92) 98 01/16/17 01:23 98.1 90 18 135/63 (87) 99 01/15/17 20:30 98.1 122 20 141/58 (85) 99 01/15/17 18:00 115 01/15/17 16:54 97.7 77 16 161/64 (96) 97 (Maya Schreiber) Physical Exam Ms Matthew is alert, no acute distress. Conversing. Cranial nerve examination: pupils equal, round, and reactive to light. Facial motor function appears symmetrical. Neck is soft and supple. Motor: Resting tremors. Moves both upper and lower extremities. Cerebellar examination is limited due to the patient condition Gait: PT reports improvement of gait following lumbar drainage (Maya Schreiber) Ms Matthew is alert, no acute distress. Speech fluent Cranial nerve examination: pupils equal, round, and reactive to light. Facial motor function appears symmetrical. Neck is soft and supple. Motor: Resting tremors. Moves both upper and lower extremities. Cerebellar examination is limited due to the patient condition Gait: PT reports improved (Jose L Taveras MD) Medications Current Medications Current Medications Medications (Trade) Dose Ordered Sig/Jordan Route PRN Reason Start Time Stop Time Status Last Admin Dose Admin Sodium Chloride (NS Flush) 2 ml UNSCH PRN IV FLUSH FLUSH AFTER USING IV ACCESS 01/06/17 15:45 Sodium Chloride (NS Flush) 2 ml BID IV FLUSH 01/06/17 21:00 01/15/17 22:12 Enoxaparin Sodium (Lovenox Inj) 40 mg Q24H SQ 01/07/17 09:00 Future Hold 01/09/17 08:11 Dextrose (D50w (Vial) Inj) 50 ml UNSCH PRN IV PUSH HYPOGLYCEMIA-SEE COMMENTS 01/07/17 09:30 01/15/17 21:45 Glucagon (Glucagon Inj) 1 mg UNSCH PRN OTHER HYPOGLYCEMIA-SEE COMMENTS 01/07/17 09:30 Insulin Aspart (NovoLOG SUPPLEMENTAL SCALE) 1 ACHS SLIDING SCALE SQ 01/07/17 12:00 01/09/17 17:51 Aspirin (Ecotrin Ec) 81 mg DAILY PO 01/08/17 09:00 Future Hold 01/09/17 08:11 Atorvastatin Calcium (Lipitor) 40 mg HS PO 01/07/17 21:00 01/14/17 22:57 Bethanechol Chloride (Urecholine) 12.5 mg QID PO 01/07/17 13:00 01/16/17 08:43 Donepezil HCl (Aricept) 5 mg DAILY PO 01/08/17 09:00 01/16/17 08:43 Sucralfate (Carafate Liq) 1 gm TID@0600,1100,1600 PO 01/07/17 11:30 01/15/17 15:26 Pantoprazole Sodium (Protonix) 40 mg DAILY PO 01/08/17 09:00 01/16/17 08:43 Miscellaneous (Pill Splitter) 1 ea UNSCH PRN OTHER SEE LABEL COMMENTS 01/07/17 11:15 Methimazole (Tapazole) 5 mg Q12HR PO 01/11/17 10:30 01/16/17 08:43 Lactobacillus Acidophilus (Lactinex) 1 tab Q12HR PO 01/14/17 21:00 01/16/17 08:43 Acetaminophen (Tylenol) 650 mg Q4H PRN PO HEADACHE /FEVER 01/14/17 12:00 01/16/17 08:47 Nystatin (Mycostatin Powder) 1 applic Q12HR TOPICAL 01/14/17 12:15 01/16/17 08:52 Metoprolol Tartrate (Lopressor) 25 mg Q12HR PO 01/15/17 21:00 01/16/17 08:43 Enalaprilat (Vasotec Inj) 2.5 mg Q6H PRN IV PUSH SBP>160, DBP>90 01/15/17 11:45 01/15/17 11:50 Ondansetron HCl (Zofran Inj) 4 mg Q6H PRN IVP NAUSEA OR VOMITING 01/15/17 11:45 01/15/17 11:50 Prochlorperazine (Compazine Supp) 25 mg Q12H PRN RECTAL NAUSEA OR VOMITING 01/15/17 11:45 Naloxone HCl (Narcan Inj) 0.4 mg UNSCH PRN IV PUSH SEE LABEL COMMENTS 01/15/17 11:45 Senna/Docusate Sodium (Lara-Colace) 1 tab BID PO 01/15/17 21:00 01/16/17 08:50 Magnesium Hydroxide (Milk Of Magnesia Liq) 30 ml Q12H PRN PO Mild constipation 01/15/17 11:45 Sennosides (Senokot) 17.2 mg Q12H PRN PO Moderate constipation 01/15/17 11:45 Bisacodyl (Dulcolax Supp) 10 mg DAILY PRN RECTAL SEVERE CONSITIPATION 01/15/17 11:45 Lactulose (Lactulose Liq) 30 ml DAILY PRN PO SEVERE CONSITIPATION 01/15/17 11:45 Diphenhydramine HCl (Benadryl Inj) 25 mg Q6H PRN IV PUSH itching 01/15/17 16:45 01/15/17 17:23 Dextrose/Sodium Chloride 1,000 ml @ 42 mls/hr [id number] IV 01/15/17 21:45 01/15/17 22:11 (Maya Schreiber) Current Medications Current Medications Aspirin (Aspirin Chew) 324 mg ONCE ONCE PO Last administered on 01/06/17 13: 50; Start 01/06/17 at 13:45; Stop 01/06/17 at 13:46; Status DC Sodium Chloride (NS Flush) 2 ml UNSCH PRN IVF FLUSH AFTER USING IV ACCESS; Start 01/06/17 at 13:45; Stop 01/07/17 at 00:49; Status DC Sodium Chloride 500 ml @ 500 mls/hr ONCE ONCE IV Last administered on 13:49; Start 01/06/17 at 13:45; Stop 01/06/17 at 15:42; Status DC Sodium Chloride 500 ml @ 500 mls/hr BOLUS ONCE IV Last administered on 14:45; Start 01/06/17 at 14:45; Stop 01/06/17 at 15:42; Status DC Potassium Chloride 100 ml @ 50 mls/hr Q2H IV Last administered on 01/06/17 16 :45; Start 01/06/17 at 14:45; Stop 01/06/17 at 18:44; Status DC Ceftriaxone Sodium 1000 mg/ Sodium Chloride 100 ml @ 200 mls/hr ONCE ONCE IV Last administered on 01/06/17 15:31; Start 01/06/17 at 15:30; Stop 01/06/17 at 15:59; Status DC Sodium Chloride (NS Flush) 2 ml UNSCH PRN IV FLUSH FLUSH AFTER USING IV ACCESS ; Start 01/06/17 at 15:45; Stop 01/16/17 at 17:51; Status DC Sodium Chloride (NS Flush) 2 ml BID IV FLUSH Last administered on 01/15/17 22 :12; Start 01/06/17 at 21:00; Stop 01/16/17 at 17:51; Status DC Naloxone HCl (Narcan Inj) 0.4 mg UNSCH PRN IV PUSH SEE LABEL COMMENTS; Start 01/06/17 at 15:45; Stop 01/15/17 at 11:48; Status DC Metoprolol Tartrate (Lopressor Inj) 2.5 mg ONCE ONCE IV PUSH Last administered on 01/06/17 16:08; Start 01/06/17 at 15:45; Stop 01/06/17 at 15:46 ; Status DC Iohexol (Omnipaque 350 Inj) 50 ml STK-MED ONCE IVCONTRAST Last administered on 01/06/17 15:45; Start 01/06/17 at 15:45; Stop 01/06/17 at 15:46; Status DC Potassium Bicarb/ Potassium Chloride (K-Lyte Cl Eff) 50 meq ONCE ONCE PO Last administered on 01/06/17 16:45; Start 01/06/17 at 16:45; Stop 01/06/17 at 18:00; Status DC Levofloxacin/ Dextrose 150 ml @ 100 mls/hr Q24H IV Last administered on 17:33; Start 01/06/17 at 18:00; Stop 01/12/17 at 21:00; Status DC Dextrose (D50w (Syr) Inj) 50 ml UNSCH PRN IV PUSH HYPOGLYCEMIA-SEE COMMENTS; Start 01/06/17 at 17:15; Stop 01/07/17 at 10:58; Status DC Glucagon (Glucagon Inj) 1 mg UNSCH PRN OTHER HYPOGLYCEMIA-SEE COMMENTS; Start 01/06/17 at 17:15; Stop 01/07/17 at 10:58; Status DC Water (Free Water) 200 ml Q4HR PO Last administered on 01/08/17 03:52; Start 01/06/17 at 20:00; Stop 01/11/17 at 13:27; Status DC Dextrose 1,000 ml @ 60 mls/hr [id number] IV Last administered on 01/09/17 23:40 ; Start 01/06/17 at 20:00; Stop 01/10/17 at 08:11; Status DC Potassium Bicarb/ Potassium Chloride (K-Lyte Cl Eff) 50 meq ONCE ONCE PO Last administered on 01/06/17 20:55; Start 01/06/17 at 20:00; Stop 01/06/17 at 20:01; Status DC Enoxaparin Sodium (Lovenox Inj) 40 mg Q24H SQ Last administered on 01/09/17 08 :11; Start 01/07/17 at 09:00; Stop 01/16/17 at 17:51; Status DC Metoprolol Tartrate (Lopressor) 12.5 mg ONCE ONCE PO Last administered on 01/07 00:58; Start 01/07/17 at 00:45; Stop 01/07/17 at 00:48; Status DC Dextrose (D50w (Vial) Inj) 50 ml UNSCH PRN IV PUSH HYPOGLYCEMIA-SEE COMMENTS Last administered on 01/15/17 21:45; Start 01/07/17 at 09:30; Stop 01/16/17 at 17:51; Status DC Glucagon (Glucagon Inj) 1 mg UNSCH PRN OTHER HYPOGLYCEMIA-SEE COMMENTS; Start 01/07/17 at 09:30; Stop 01/16/17 at 17:51; Status DC Insulin Aspart (NovoLOG SUPPLEMENTAL SCALE) 1 ACHS SLIDING SCALE SQ Last administered on 01/09/17 17:51; Start 01/07/17 at 12:00; Stop 01/16/17 at 17: 51; Status DC Aspirin (Ecotrin Ec) 81 mg DAILY PO Last administered on 01/09/17 08:11; Start 01/08/17 at 09:00; Stop 01/16/17 at 17:51; Status DC Atorvastatin Calcium (Lipitor) 40 mg HS PO Last administered on 01/14/17 22: 57; Start 01/07/17 at 21:00; Stop 01/16/17 at 17:51; Status DC Bethanechol Chloride (Urecholine) 12.5 mg QID PO Last administered on 08:43; Start 01/07/17 at 13:00; Stop 01/16/17 at 17:51; Status DC Donepezil HCl (Aricept) 5 mg DAILY PO Last administered on 01/16/17 08:43; Start 01/08/17 at 09:00; Stop 01/16/17 at 17:51; Status DC Sucralfate (Carafate Liq) 1 gm TID@0600,1100,1600 PO Last administered on 01/16 16:27; Start 01/07/17 at 11:30; Stop 01/16/17 at 17:51; Status DC Pantoprazole Sodium (Protonix) 40 mg DAILY PO Last administered on 01/16/17 08:43; Start 01/08/17 at 09:00; Stop 01/16/17 at 17:51; Status DC Miscellaneous (Pill Splitter) 1 ea UNSCH PRN OTHER SEE LABEL COMMENTS; Start 01/07/17 at 11:15; Stop 01/16/17 at 17:51; Status DC Potassium Chloride (KCl) 30 meq ONCE ONCE PO Last administered on 01/08/17 12 :38; Start 01/08/17 at 10:30; Stop 01/08/17 at 10:39; Status DC Potassium Chloride (KCl) 30 meq ONCE ONCE PO Last administered on 01/08/17 15 :10; Start 01/08/17 at 14:00; Stop 01/08/17 at 14:01; Status DC Sodium Chloride 1,000 ml @ 60 mls/hr [id number] IV Last administered on 01:53; Start 01/10/17 at 08:00; Stop 01/11/17 at 13:27; Status DC Alprazolam (Xanax) 0.125 mg NOW ONCE PO Last administered on 01/11/17 00:31; Start 01/11/17 at 00:30; Stop 01/11/17 at 00:31; Status DC Methimazole (Tapazole) 5 mg Q12HR PO Last administered on 01/16/17 08:43; Start 01/11/17 at 10:30; Stop 01/16/17 at 17:51; Status DC Metoprolol Tartrate (Lopressor) 12.5 mg Q12HR PO Last administered on 07:42; Start 01/11/17 at 10:30; Stop 01/15/17 at 11:34; Status DC Potassium Chloride (KCl) 30 meq ONCE ONCE PO Last administered on 01/11/17 17 :19; Start 01/11/17 at 14:00; Stop 01/11/17 at 14:01; Status DC Fentanyl Citrate (fentaNYL INJ) 100 mcg STK-MED ONCE .ROUTE Last administered on 01/12/17 10:35; Start 01/12/17 at 10:35; Stop 01/12/17 at 10:36; Status DC Midazolam HCl (Versed Inj) 2 mg STK-MED ONCE .ROUTE Last administered on 10:35; Start 01/12/17 at 10:35; Stop 01/12/17 at 10:36; Status DC Cefazolin Sodium/ Dextrose 50 ml @ As Directed STK-MED ONCE .ROUTE Last administered on 01/12/17 10:36; Start 01/12/17 at 10:36; Stop 01/12/17 at 10:37 ; Status DC Potassium Bicarb/ Potassium Chloride (K-Lyte Cl Eff) 50 meq ONCE ONCE PO ; Start 01/13/17 at 13:00; Stop 01/13/17 at 13:01; Status DC Potassium Chloride 100 ml @ 50 mls/hr Q2H IV Last administered on 01/13/17 17:04; Start 01/13/17 at 15:00; Stop 01/13/17 at 18:59; Status DC Lactobacillus Acidophilus (Lactinex) 1 tab Q12HR PO Last administered on 08:43; Start 01/14/17 at 21:00; Stop 01/16/17 at 17:51; Status DC Diatrizoate Meglum/ Diatrizoate Sod ( Gastroview Liq) 18 ml ONCE ONCE PO Last administered on 01/14/17 11:33; Start 01/14/17 at 11:30; Stop 01/14/17 at 11:31; Status DC Acetaminophen (Tylenol) 650 mg Q4H PRN PO HEADACHE /FEVER Last administered on 01/16/17 08:47; Start 01/14/17 at 12:00; Stop 01/16/17 at 17:51; Status DC Nystatin (Mycostatin Powder) 1 applic Q12HR TOPICAL Last administered on 08:52; Start 01/14/17 at 12:15; Stop 01/16/17 at 17:51; Status DC Iohexol (Omnipaque 350 Inj) 50 ml STK-MED ONCE IVCONTRAST Last administered on 01/14/17 23:59; Start 01/14/17 at 23:59; Stop 01/15/17 at 00:00; Status DC Potassium Chloride (KCl) 30 meq ONCE ONCE PO ; Start 01/15/17 at 11:15; Stop 01/15/17 at 11:21; Status DC Metoprolol Tartrate (Lopressor) 25 mg Q12HR PO Last administered on 01/16/17 08:43; Start 01/15/17 at 21:00; Stop 01/16/17 at 17:51; Status DC Enalaprilat (Vasotec Inj) 2.5 mg Q6H PRN IV PUSH SBP>160, DBP>90 Last administered on 01/15/17 11:50; Start 01/15/17 at 11:45; Stop 01/16/17 at 17 :51; Status DC Potassium Chloride 100 ml @ 50 mls/hr Q2H IV Last administered on 01/15/17 15:26; Start 01/15/17 at 11:45; Stop 01/15/17 at 15:44; Status DC Ondansetron HCl (Zofran Inj) 4 mg Q6H PRN IVP NAUSEA OR VOMITING Last administered on 01/15/17 11:50; Start 01/15/17 at 11:45; Stop 01/16/17 at 17 :51; Status DC Prochlorperazine (Compazine Supp) 25 mg Q12H PRN RECTAL NAUSEA OR VOMITING; Start 01/15/17 at 11:45; Stop 01/16/17 at 17:51; Status DC Naloxone HCl (Narcan Inj) 0.4 mg UNSCH PRN IV PUSH SEE LABEL COMMENTS; Start 01/15/17 at 11:45; Stop 01/16/17 at 17:51; Status DC Senna/Docusate Sodium (Lara-Colace) 1 tab BID PO Last administered on 08:50; Start 01/15/17 at 21:00; Stop 01/16/17 at 17:51; Status DC Magnesium Hydroxide (Milk Of Magnesia Liq) 30 ml Q12H PRN PO Mild constipation ; Start 01/15/17 at 11:45; Stop 01/16/17 at 17:51; Status DC Sennosides (Senokot) 17.2 mg Q12H PRN PO Moderate constipation; Start at 11:45; Stop 01/16/17 at 17:51; Status DC Bisacodyl (Dulcolax Supp) 10 mg DAILY PRN RECTAL SEVERE CONSITIPATION; Start 01/15/17 at 11:45; Stop 01/16/17 at 17:51; Status DC Lactulose (Lactulose Liq) 30 ml DAILY PRN PO SEVERE CONSITIPATION; Start 01/15 at 11:45; Stop 01/16/17 at 17:51; Status DC Diphenhydramine HCl (Benadryl Inj) 25 mg Q6H PRN IV PUSH itching Last administered on 01/15/17 17:23; Start 01/15/17 at 16:45; Stop 01/16/17 at 17 :51; Status DC Dextrose/Sodium Chloride 1,000 ml @ 42 mls/hr [id number] IV Last administered on 01/15/17 22:11; Start 01/15/17 at 21:45; Stop 01/16/17 at 17:51; Status DC Lactulose (Lactulose Liq) 30 ml ONCE ONCE PO ; Start 01/16/17 at 11:30; Stop 01/16/17 at 11:31; Status DC Magnesium Oxide (Mag-Ox) 400 mg ONCE ONCE PO ; Start 01/16/17 at 11:45; Stop 01/16/17 at 11:46; Status DC (Jose L Taveras MD) Medical Decision Making MDM Remarks 81 y/o female with 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 (Maya Schreiber) Plan Plan Remarks patient requesting discharge, ok to dc from NRS standpoint, she may follow up with us in the office to plan for BOARD SAW RUNNER shunt (Maya Schreiber) Attending Statement Continue neuro checks. Bhavesh gait has improved. She will benefit by a permanent BOARD SAW RUNNER shunt Pulmonary.. Continue aggressive pulmonary toilette, nasotracheal suction, and breathing treatments with nebulizers. Renal. monitor closely urine output, BUN and creatinine Endocrine. Monitor serial Acu checks and SSI as needed in detail ID monitor for signs of infection Protonix for stress ulcer prophylaxis Octavio hose and SCD's for DVT prophylaxis The exam, history, and the medical decision-making described in the above note were completed with the assistance of the mid-level provider. I reviewed and agree with the findings presented. I attest that I had a [id number] encounter with the patient on the same day, and personally performed and documented my assessment and findings in the medical record. (Jose L Taveras MD) Maya Schreiber Jan 16, 2017 14:46 Jose L Taveras MD Jan 17, 2017 16:49
--- NOTE | 2017-01-16 16:33 | HHI.DS ---
Discharge Summary Admission Date Jan 06, 2017 at 16:27 Discharge Date: Jan 16, 2017 Admitting Diagnosis Hypernatremia/Hypokalemia/Tachycardia (1) Constipation ICD Code: K59.00 - Constipation, unspecified Status: Chronic (2) Diabetes ICD Code: E11.9 - Type 2 diabetes mellitus without complications Status: Chronic (3) Hypertension ICD Code: I10 - Essential (primary) hypertension Status: Chronic (4) Hypernatremia ICD Code: E87.0 - Hyperosmolality and hypernatremia Status: Acute (5) Elevated troponin ICD Code: R74.8 - Abnormal levels of other serum enzymes Status: Acute (6) Possible NPH (7) Hypokalemia ICD Code: E87.6 - Hypokalemia Status: Acute (8) Urinary tract infection ICD Code: N39.0 - Urinary tract infection, site not specified Status: Acute (9) Tachycardia ICD Code: R00.0 - Tachycardia, unspecified Status: Acute (10) Altered mental status ICD Code: R41.82 - Altered mental status, unspecified (11) Abscess ICD Code: L02.91 - Cutaneous abscess, unspecified (12) Elderly person living alone ICD Code: Z60.2 - Problems related to living alone Procedures L3-L4 drain placement by IR on 01/12/17 Brief History - From Admission History patient, ER physician communication, and review of medical records. Patient is extremely poor historian. She is noted to be shaking bilateral upper extremities but more on the right side at the time of my exam. She stated that she has these shakings for a long time. Her mood is labile and at times she would give me history that she does have diabetes but at other times she thinks that her family members are around her and that I'm not allowing her to see them. As per ER communication, patient has family members in the ER who gave her some more history. According to them, patient lives with her daughter who has Down's syndrome and takes care of the daughter. The daughter also has a building code inspector who usually cooks for both the mother and the daughter. We believe the patient has not been doing well for past several months. They think the patient was diagnosed with dementia. They also reported to ER physician that patient has been shaking like this for past several months. Patient was recently at her PCP office about 2 weeks ago for dehydration and was given IV fluids. She was diagnosed with UTI in November as well. She was given IV fluids because of elevated heart rate at the doctor's office. Upon EMS arrival today, patient was also noted to be tachycardic although sinus , with heart rate in the 180s per records. EKGs done in ER revealed heart rate of 150. CBC/BMP: 01/16/17 0654 01/16/17 0654 Significant Findings Laboratory Tests Test 01/14/17 08:30 01/14/17 13:26 01/15/17 06:46 01/15/17 13:28 Creatinine 0.38 MG/DL (0.50-1.00) 0.38 MG/DL (0.50-1.00) Calcium Level 8.4 MG/DL (8.5-10.1) Chloride Level 108 MEQ/L (98-107) 108 MEQ/L (98-107) Red Blood Count 3.51 MIL/MM3 (4.00-5.30) Hemoglobin 11.3 GM/DL (11.6-15.3) Hematocrit 32.8 % (35.0-46.0) Monocytes (%) (Auto) 14.0 % (0.0-8.0) Monocytes # (Auto) 1.0 TH/MM3 (0-0.9) Potassium Level 3.4 MEQ/L (3.5-5.1) Test 01/15/17 22:18 01/16/17 06:54 Random Glucose 330 MG/DL (74-106) 119 MG/DL (74-106) Red Blood Count 3.43 MIL/MM3 (4.00-5.30) Hemoglobin 10.7 GM/DL (11.6-15.3) Hematocrit 32.2 % (35.0-46.0) Monocytes (%) (Auto) 16.3 % (0.0-8.0) Eosinophils (%) (Auto) 5.9 % (0.0-4.0) Monocytes # (Auto) 1.1 TH/MM3 (0-0.9) Creatinine 0.36 MG/DL (0.50-1.00) Calcium Level 8.4 MG/DL (8.5-10.1) Chloride Level 109 MEQ/L (98-107) Ammonia 37 MCMOL/L (11-32) Imaging Last Impressions Abdomen/Pelvis CT 01/14/17 0000 Signed Impressions: Service Date/Time: Saturday, January 14, 2017 23:58 - CONCLUSION: 1. No evidence of acute abdominal or pelvic process. No masses are identified. 2. Diverticulosis without evidence of diverticulitis. Franki Winkler MD Lumbar Puncture Fluoroscopy 01/12/17 0000 Signed Impressions: Service Date/Time: January 10:22 - CONCLUSION: Uncomplicated lumbar drain placement as above. Marco A Fagan MD Brain MRI 01/07/17 0000 Signed Impressions: Service Date/Time: Saturday, January 07, 2017 08:56 - CONCLUSION: 1. Mild ventriculomegaly out of proportion for degree of volume loss with mild diffuse periventricular transependymal edema concerning for normal pressure hydrocephalus. Clinical correlation is recommended. 2. Otherwise, no acute abnormality. Rigoberto Reis MD Head CT 01/06/17 1410 Signed Impressions: Service Date/Time: Friday, January 06, 2017 15:36 - CONCLUSION: Increasing ventricular prominence. Nonspecific but can be seen with normal pressure hydrocephalus. Jose Moreno MD FACR Chest X-Ray [id number]/06/[id number] Signed Impressions: Service Date/Time: Friday, January 06, 2017 14:08 - CONCLUSION: 1. No acute cardiopulmonary disease. Abdiel Lerma MD CT Angiography [id number]/[id number] Signed Impressions: Service Date/Time: Friday, January 06, 2017 15:42 - CONCLUSION: 1. No evidence of pulmonary embolism. 2. Coronary artery calcifications. Abdiel Lerma MD PE at Discharge GENERAL: Frail 81 yo F pleasantly confused, following commands. Alert and oriented by name and only. CARDIOVASCULAR: Regular rate and rhythm. RESPIRATORY: No accessory muscle use. Clear to auscultation. Breath sounds equal bilaterally. GASTROINTESTINAL: Abdomen soft, diffused tenderness, nondistended. Hepatic and splenic margins not palpable. MUSCULOSKELETAL: Drain in the back pulled, dressing c/d/i. Extremities without clubbing, cyanosis, or edema. No obvious deformities. NEUROLOGICAL: Awake and alert. No obvious cranial nerve deficits. Motor grossly within normal limits. Five out of 5 muscle strength in the arms and legs. Normal speech. PSYCHIATRIC: Appropriate mood and affect; insight and judgment normal. Hospital Course Acute encephalopathy- possibly due to dehydration , UTI- seems to be improving- although still not oriented to time. continue with neuro-checks- neurology evaluation appreciated. Drain from back removed, per neurosurgery patient might need a shunt. 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 S/ p lumbar drain placement L3-L4 drain placement by IR on Hypernatremia- resolved- will monitor. Hypokalemia-replace with Potassium bicarbonate 50 mEQ as Na si elevated. Will recheck BMP today. Monitor an replace as need. Abdominal pain/diarrhea: CT abd pelvis reviewed with diverticulosis. Will order ammonia. Check C diff. Continue probiotic. Sinus tachycardia- due to dehydration and hyperthyroidism-continue metoprolol- continue to monitor nonspecific elevation of troponin- no chest pain- likely due to tachycardia- UTI with E-coli- on antibiotic-will finish the course today. HTN-BP controlled- continue metoprolol- will monitor for now. DM2- accu-check with SSI. Hyperthyroidism: TSI pending - started on methimazole of note previously d/w who was following the patient in the past ( for diabetes); recommended starting methimazole and rest of the work-up as outpatient. History of H. pylori gastritis: continue home meds Patient now with bd pain , nausea, diarrhea Will do Abd Ct. Start lactobacilus, check for C diff. DVT prophylaxis with subq Lovenox ( on hold for planned procedure). PT consulted. Discharge Planning Lumbar drain placement by IR on 01/12/17. Drain removed on 01/14/17. DC planning to SNF poss tomorrow. Patient is confused at this time. Patient now with bd pain , nausea, diarrhea. Abd Ct.reviewed with diverticulosis. Start lactobacilus, check for C diff. Improved no more diarrhea. Patient improved. 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 Discharge to SNF in stable condition to follow up as OP with PCP and consultants. Pt Condition on Discharge: Stable Discharge Disposition: Discharge to SNF Discharge Time: > 30 minutes Discharge Instructions DIET: Follow Instructions for: Heart Healthy Diet Activities you can perform: Regular-No Restrictions Follow up Referrals: Neurosurgery with Jose L Taveras MD PCP Follow-up - 2-3 Days New Medications: Walker Rolling/GetGo (Walker Rolling/GetGo) 1 Mis Mis EA .ROUTE DIRECTED, #1 Continued Medications: Amitriptyline (Amitriptyline) 10 Mg Tab 10-20 MG PO HS, TAB Aspirin DR (Ecotrin Low Strength) 81 Mg Tabdr 81 MG PO DAILY, #30 TAB 0 Refills Atorvastatin (Lipitor) 40 Mg Tab 40 MG PO HS for Cholesterol Management, #30 TAB 0 Refills Bethanechol (Bethanechol) 25 Mg Tab 12.5 MG PO QID for Urinary Symptom Managemen, TAB 0 Refills Take 1hr before meals and at beditime Donepezil HCl (Aricept) 5 Mg Tablet 5 MG PO DAILY Glipizide ER (Glipizide ER) 10 Mg Malgorzata 10 MG PO DAILY for Blood Sugar Management, #30 TAB 0 Refills Take with breakfast or first main meal of the day Lisinopril-Hctz (Lisinopril-Hctz) 20-25 Mg Tab 1 TAB PO DAILY for Blood Pressure Management, #30 TAB 0 Refills Meclizine (Meclizine) 25 Mg Tab 25 MG PO TID PRN for VERTIGO, TAB 0 Refills Metoclopramide (Reglan) 10 Mg Tab 10 MG PO QID, #15 TAB 0 Refills Omeprazole (Omeprazole) 40 Mg Cap 40 MG PO DAILY, #30 CAP 0 Refills Sucralfate Liq (Carafate Liq) 1 Gm/10 Ml Susp 1 GM PO TID for Duodenal ulcer, #900 ML 0 Refills on empty stomach Walker Rolling/GetGo (Walker Rolling/GetGo) 1 Mis Mis EA .ROUTE DIRECTED, #1 Discontinued Medications: Nitrofurantoin Monohydrate Macrocrystals (Macrobid) 100 Mg Cap 100 MG PO BID for Infection for 10 Days, #20 CAP 0 Refills Tramadol (Tramadol) 50 Mg Tab 50 MG PO Q8H PRN for PAIN SCALE 7 TO 10, #20 TAB 0 Refills Cosma,Rosanna MD Jan 16, 2017 16:33
[2017-01-16 16:56] VITALS: BP 132/67; PULSE 77; RESP 16; TEMP 97.5; O2SAT 98
== END 2017-01-16 17:50 | DRG 56 ==
LOC: NEPE 13:05 → NEDA 16:27 → N04B 17:04 → N05B 01-12 11:12 → N05A 01-12 13:01
PROVIDERS: ADMIT Hospitalist; ATTEND Hospitalist
PROC: 009U30Z Drainage of Spinal Canal with Drainage Device, Percutaneous Approach (ICD-10-PCS; principal; 2017-01-12)
DX: G91.2 (Idiopathic) normal pressure hydrocephalus (principal); G93.40 Encephalopathy, unspecified; E87.0 Hyperosmolality and hypernatremia; N39.0 Urinary tract infection, site not specified; G93.89 Other specified disorders of brain; E11.9 Type 2 diabetes mellitus without complications; B96.20 Unspecified Escherichia coli [E. coli] as the cause of diseases classified elsewhere; F03.90 Unspecified dementia, unspecified severity, without behavioral disturbance, psychotic disturbance, mood disturbance, and anxiety; I10 Essential (primary) hypertension; E86.0 Dehydration; R00.0 Tachycardia, unspecified; E05.90 Thyrotoxicosis, unspecified without thyrotoxic crisis or storm; Z87.11 Personal history of peptic ulcer disease; Z86.19 Personal history of other infectious and parasitic diseases; Z82.79 Family history of other congenital malformations, deformations and chromosomal abnormalities; Z87.440 Personal history of urinary (tract) infections; Z60.2 Problems related to living alone; E87.6 Hypokalemia; I08.1 Rheumatic disorders of both mitral and tricuspid valves; R74.8 Abnormal levels of other serum enzymes; K57.90 Diverticulosis of intestine, part unspecified, without perforation or abscess without bleeding; K59.00 Constipation, unspecified; F41.9 Anxiety disorder, unspecified
CPT/HCPCS: 63741; 70450; 70551; 71010; 71275; 74177; 76937; 77003; 80048; 80053; 81001; 82140; 82550; 82947; 82948; 83735; 83880; 84132; 84439; 84443; 84445; 84484; 85007; 85025; 85027; 85610; 85730; 87040; 87077; 87086; 87186; 93005; 96361; 96365; 96375; 99152; C1755; J0690; J0696; J1200; J1650; J1815; J1956; J2250; J2405; J3010; J3480; J7030; J7040; J7070; P9612; Q9963; Q9967

== ENCOUNTER 2017-01-19 10:23 | Inpatient (IN) | payer OTHER, MEDICARE ==
[2017-01-19] VITALS (12 sets, daily range): BP systolic 123–167; BP diastolic 65–84; PULSE 72–134; RESP 14–18; TEMP 97.1–97.9; O2SAT 97–100
[~2017-01-19] VITALS: Ht 149.9 cm; Wt 36.0 kg
[~2017-01-19 10:23] MED LIST changes: -MACR100C2 PO; -TRAM50TA PO
[2017-01-19] MEDS ORDERED: IOHEXOL 350 MG/ML 10 ML VIAL (for RAD DIAG) IVCONTRAST ONE (10:24)
[2017-01-19] MEDS ORDERED: BETH25TA2 PO (10:48)
[2017-01-19] MEDS ORDERED: ONDA4TAB15 (10:48)
[2017-01-19] MEDS ORDERED: TRAM50TA PO (10:48)
[2017-01-19] MEDS ORDERED: SODIUM CHLOR 0.9% 1000 ML INJ 1,000 ML IV SCH (11:07)
[2017-01-19] MEDS ORDERED: ONDANSETRON HCL 4 MG/2 ML VIAL IVP ONE (11:15)
[2017-01-19] MEDS ORDERED: SODIUM CHLORIDE 0.9% FLUSH 10 ML FLUSH IV FLUSH PRN ×2 (11:15→15:15)
[2017-01-19 11:52] LABS: BACTERIA, URINE RARE /hpf; BLOOD, URINE NEG (NEG); COMMENT (UR) CULTURE INDICATED; CULTURE IF INDICATED CULTURE INDICATED; GLUCOSE,URINE NEG (NEG); HYALINE CAST, URINE 3 /lpf (RARE); KETONE, URINE 10 mg/dL (NEG); MUCUS URINE FEW /lpf (OCC); NITRITE,URINE NEG (NEG); PH, URINE 7.5 (5.0-8.5); SQUAMOUS EPITHELIAL CELL URINE 2 /hpf (0-5); URINE COLOR LIGHT-YELLOW (YELLW/STRAW)
[2017-01-19 12:12] LABS: ALT (GPT) 59 U/L (10-53); ANION GAP 15 MEQ/L (5-15); AST (GOT) 99 U/L (15-37); BICARBONATE 21.4 MEQ/L (21.0-32.0); BLOOD UREA NITROGEN 8 MG/DL (7-18); CHLORIDE 103 MEQ/L (98-107); GLOMERULAR FILTRATION RATE 116 ML/MIN (>89); POTASSIUM 3.2 MEQ/L (3.5-5.1); SODIUM (NA) 139 MEQ/L (136-145)
[2017-01-19 12:17] LABS: ALKALINE PHOSPHATASE 96 U/L (45-117); TOTAL BILIRUBIN ADULT 0.8 MG/DL (0.2-1.0)
[2017-01-19 12:35] LABS: APTT (PATIENT) 23.6 SEC (24.3-30.1); INTERNATIONAL NORMALIZED RATIO 1.2 RATIO; PROTHROMBIN TIME - PATIENT 13.2 SEC (9.8-11.6)
--- NOTE | 2017-01-19 13:33 | RADRPT ---
EXAM DATE/TIME: 01/19/2017 12:54 [facility] COMPARISON: CT ABDOMEN & PELVIS W CONTRAST, January 14, 2017, 23:58. INDICATIONS : Upper abdominal pain, worse after eating. IV CONTRAST: 85 cc Omnipaque 350 (iohexol) IV ORAL CONTRAST: No oral contrast ingested. RADIATION DOSE: 6.64 CTDIvol (mGy) MEDICAL HISTORY : Ulcers. Cardiovascular disease Diabetes mellitus type 2. SURGICAL HISTORY : Appendectomy. Cholecystectomy.Tubal ligation. ENCOUNTER: Initial ACUITY: 1 month PAIN SCALE: 4/10 LOCATION: Bilateral upper quadrant TECHNIQUE: Volumetric scanning of the abdomen and pelvis was performed. Using automated exposure control and ad justment of the mA and/or kV according to patient size, radiation dose was kept as low as reasonably achievable to obtain optimal diagnostic quality images. DICOM format image data is available electro nically for review and comparison. FINDINGS: LOWER LUNGS: The visualized lower lungs are clear. Coronary artery calcifications are again noted. LIVER: Homogeneous density without lesion. The gallbladder has been resected. The extrahepatic biliary syst em is mildly prominent but stable and likely related to reservoir phenomenon status post cholecystect [place]. SPLEEN: Normal size without lesion. PANCREAS: Within normal limits. KIDNEYS: Normal in size and shape. There is no stone or hydronephrosis. Scattered low-density lesions are not ed within the kidneys bilaterally consistent with probable cysts. There is a 10 mm intermediate densi ty nodule within the lower pole the right kidney which could represent a complex cyst or small solid lesion. Ultrasound or MRI with contrast may be helpful for further characterization of this indetermi aleyda lesion. ADRENAL GLANDS: Within normal limits. VASCULAR: There is no aortic aneurysm. BOWEL/MESENTERY: Uncomplicated diverticulosis is noted. ABDOMINAL WALL: Within normal limits. RETROPERITONEUM: There is no lymphadenopathy. BLADDER: No wall thickening or mass. REPRODUCTIVE: Within normal limits. INGUINAL: There is no lymphadenopathy or hernia. MUSCULOSKELETAL: Mild degenerative changes throughout the thoracolumbar spine. CONCLUSION: 1. 10 mm intermediate density nodule within the lower pole the right kidney which could represent a c omplex cyst or small solid lesion. Ultrasound or MRI with contrast may be helpful for further charact erization of this indeterminate lesion. 2. Scattered tiny bilateral renal cysts. 3. Uncomplicated colonic diverticulosis. 4. Prominence of the extrahepatic biliary system which may be related to reservoir phenomenon status post cholecystectomy. 5. Coronary artery calcifications. 6. Mild degenerative changes throughout the thoracolumbar spine. Abdiel Lerma MD on January 19, 2017 at 13:23 Board Certified Radiologist. This report was verified electronically.
[2017-01-19 13:36] LABS: AUTOMATED NEUTROPHIL # 4.8 TH/MM3 (1.8-7.7); BASOPHIL % 0.2 % (0.0-2.0); EOSINOPHIL % 0.1 % (0.0-4.0); HEMO FLAGS DIFF FINAL; LYMPH % 17.8 % (9.0-44.0); LYMPHOCYTE # 1.2 TH/MM3 (1.0-4.8); MEAN CELL VOLUME 95.7 FL (80.0-100.0); MEAN CORPUSCULAR HEMOGLOBIN 30.9 PG (27.0-34.0); MEAN CORPUSCULAR HGB CONC 32.3 % (32.0-36.0); MONO % 7.1 % (0.0-8.0); NEUT % 74.8 % (16.0-70.0); PLATELET COUNT 148 TH/MM3 (150-450); RED BLOOD COUNT 2.61 MIL/MM3 (4.00-5.30); RED CELL DISTRIBUTION WIDTH 15.1 % (11.6-17.2); WHITE BLOOD COUNT 6.5 TH/MM3 (4.0-11.0)
[2017-01-19] MEDS ORDERED: MAGNESIUM HYDROXIDE SUSP 30 ML CUP PO PRN (15:15)
[2017-01-19] MEDS ORDERED: NALOXONE HCL 0.4 MG/ML AMP IV PUSH PRN (15:15)
[2017-01-19] MEDS ORDERED: SENNOSIDES 8.6 MG TAB PO PRN (15:15)
[2017-01-19] MEDS ORDERED: BISACODYL 10 MG SUPP RECTAL PRN (15:15)
[2017-01-19] MEDS ORDERED: LACTULOSE SYRUP 20 GM/30 ML CUP PO PRN (15:15)
[2017-01-19] MEDS ORDERED: LABETALOL HCL 100 MG/20 ML VIAL IV PUSH ONE ×2 (16:00→16:15)
[2017-01-19] MEDS ORDERED: HEPARIN SODIUM - SQ 10,000 UNITS/ML VIAL SQ SCH (16:00)
[2017-01-19] MEDS ORDERED: GLUCAGON 1 MG/ML VIAL OTHER PRN (16:00)
--- NOTE | 2017-01-19 16:10 | HHI.HP ---
[facility] No Primary Care Physician Admission Diagnosis UTI, anemia Diagnoses: Chief Complaint: Abdominal pain Travel History International Travel<30 Days: No Contact w/Intl Traveler <30 Da: No Traveled to Known Affected Are: No History of Present Illness 81 years old female with history of recent admission for UTI with Escherichia coli, presented today to the ED complaining of epigastric pain 6-7 out of 10, along with history of nausea and vomiting, on and off chest pain. In general patient is poor historian, from the history I got from ED there was only mentioning of lower abdominal pain related to UTI and a drop in hemoglobin been from 11.3-8.1, however patient did mention epigastric pain, nausea vomiting, no hematochezia or hematemesis, I also found her heart rate in the 140-150, but no chest pain at this time, patient has history of diabetes mellitus and hypertension. She doesn't have dysuria at this time, she was discharged on by mouth antibiotic. Patient denied dizziness or lightheaded Review of Systems All systems reviewed and was positive for what is mentioned in history of present illness otherwise negative Past Family Social History Past Medical History History of SVT 2 episodes in 2017 History of H pylori gastritis/peptic ulcer Hypertension Past Surgical History History of appendectomy cholecystectomy and breast reduction Allergies: Coded Allergies: ciprofloxacin (Verified Allergy, Severe, RASH, VOMITING, 01/19/17) Family History Review with the patient,not aware of significant medical history runs in his family Social History Denied tobacco alcohol or illicit drug abuse Physical Exam Vital Signs Vital Signs Date Time Temp Pulse Resp B/P (MAP) Pulse Ox O2 Delivery O2 Flow Rate FiO2 01/19/17 15:46 134 14 167/74 (105) 98 Room Air 01/19/17 13:14 98 Room Air 01/19/17 10:33 133 14 147/76 (99) 100 Physical Exam GENERAL: This is a well-nourished, well-developed patient, in no apparent distress. SKIN: No rashes, warm and dry HEAD: Atraumatic. Normocephalic. EYES: Pupils equal round and reactive. Extraocular motions intact. No scleral icterus. ENT: Nose without bleeding, or drainage, Airway patent. NECK: Trachea midline. Supple CARDIOVASCULAR: Regular tachycardia RESPIRATORY: Fair air entry bilaterally. No wheezes, rales, or rhonchi. GASTROINTESTINAL: Abdomen soft, non-tender, nondistended. Positive bowel sounds MUSCULOSKELETAL: Extremities without clubbing, cyanosis, or edema. Pedal pulses appreciated NEUROLOGICAL: Awake and alert. Moves all extremity. Normal speech.no focal neurological deficit Laboratory Laboratory Tests Test 01/19/17 11:20 01/19/17 11:30 01/19/17 12:55 Urine Color LIGHT-YELLOW Urine Turbidity CLEAR Urine pH 7.5 Urine Specific [place] 1.007 Urine Protein TRACE Urine Glucose (UA) NEG Urine Ketones 10 Urine Occult Blood NEG Urine Nitrite NEG Urine Bilirubin NEG Urine Urobilinogen LESS THAN 2.0 Urine Leukocyte Esterase MOD Urine RBC 1 Urine WBC 11 Urine Squamous Epithelial Cells 2 Urine Bacteria RARE Urine Hyaline Casts 3 Urine Mucus FEW Microscopic Urinalysis Comment CULTURE INDICATED Blood Urea Nitrogen 8 Creatinine 0.51 Random Glucose 113 Total Protein 8.4 Albumin 2.6 Calcium Level 9.4 Alkaline Phosphatase 96 Aspartate Amino Transf (AST/SGOT) 99 Alanine Aminotransferase (ALT/SGPT) 59 Total Bilirubin 0.8 Sodium Level 139 Potassium Level 3.2 Chloride Level 103 Carbon Dioxide Level 21.4 Anion Gap 15 Estimat Glomerular Filtration Rate 116 Lipase 143 Prothrombin Time 13.2 Prothromb Time International Ratio 1.2 Activated Partial Thromboplast Time 23.6 White Blood Count 6.5 Red Blood Count 2.61 Hemoglobin 8.1 Hematocrit 25.0 Mean Corpuscular Volume 95.7 Mean Corpuscular Hemoglobin 30.9 Mean Corpuscular Hemoglobin Concent 32.3 Red Cell Distribution Width 15.1 Platelet Count 148 Mean Platelet Volume 8.0 Neutrophils (%) (Auto) 74.8 Lymphocytes (%) (Auto) 17.8 Monocytes (%) (Auto) 7.1 Eosinophils (%) (Auto) 0.1 Basophils (%) (Auto) 0.2 Neutrophils # (Auto) 4.8 Lymphocytes # (Auto) 1.2 Monocytes # (Auto) 0.5 Eosinophils # (Auto) 0.0 Basophils # (Auto) 0.0 CBC Comment DIFF FINAL Differential Comment Date/Time Source Procedure Growth Status 01/19/17 11:20 Urine Clean Catch Urine Culture Pending Received Result Diagram: 01/19/17 1255 01/19/17 1120 Imaging Last Impressions Abdomen/Pelvis CT 01/19/17 1107 Signed Impressions: Service Date/Time: January 12:54 - CONCLUSION: 1. 10 mm intermediate density nodule within the lower pole the right kidney which could represent a complex cyst or small solid lesion. Ultrasound or MRI with contrast may be helpful for further characterization of this indeterminate lesion. 2. Scattered tiny bilateral renal cysts. 3. Uncomplicated colonic diverticulosis. 4. Prominence of the extrahepatic biliary system which may be related to reservoir phenomenon status post cholecystectomy. 5. Coronary artery calcifications. 6. Mild degenerative changes throughout the thoracolumbar spine. Abdiel Lerma MD Renal Ultrasound 01/19/17 0000 Signed Impressions: Service Date/Time: January 16:07 - CONCLUSION: 1. The lesion identified by CT corresponds to an 8 mm cyst in the lower pole of the right kidney. 2. No hydronephrotic changes. Arvin Moreno MD Caprini VTE Risk Assessment Caprini VTE Risk Assessment: Mod/High Risk (score >= 2) Caprini Risk Assessment Model Point Value = 1 Point Value = 2 Point Value = 3 Point Value = 5 Age 41-60 Minor surgery BMI > 25 kg/m2 Swollen legs Varicose veins or History of unexplained or recurrent spontaneous Oral contraceptives or hormone replacement Sepsis (< 1 month) Serious lung disease, including pneumonia (< 1 month) Abnormal pulmonary function Acute myocardial infarction Congestive heart failure (< 1 month) History of inflammatory bowel disease Medical patient at bed rest Age 61-74 Arthroscopic surgery Major open surgery (> 45 min) Laparoscopic surgery (> 45 min) Malignancy Confined to bed (> 72 hours) Immobilizing plaster cast Central venous access Age >= 75 History of VTE Family history of VTE Factor V Leiden Prothrombin [id number] Lupus anticoagulant Anticardiolipin antibodies Elevated serum homocysteine Heparin-induced thrombocytopenia Other congenital or acquired thrombophilia Stroke (< 1 month) Elective arthroplasty Hip, pelvis, or leg fracture Acute spinal cord injury (< 1 month) Prophylaxis Regimen Total Risk Factor Score Risk Level Prophylaxis Regimen 0-1 Low Early ambulation 2 Moderate Order ONE of the following: *Sequential Compression Device (SCD) *Heparin 5000 units SQ BID 3-4 Higher Order ONE of the following medications: *Heparin 5000 units SQ TID *Enoxaparin/Lovenox 40 mg SQ daily (WT < 150 kg, CrCl > 30 mL/min) *Enoxaparin/Lovenox 30 mg SQ daily (WT < 150 kg, CrCl > 10-29 mL/min) *Enoxaparin/Lovenox 30 mg SQ BID (WT < 150 kg, CrCl > 30 mL/min) AND/OR *Sequential Compression Device (SCD) 5 or more Highest Order ONE of the following medications: *Heparin 5000 units SQ TID (Preferred with Epidurals) *Enoxaparin/Lovenox 40 mg SQ daily (WT < 150 kg, CrCl > 30 mL/min) *Enoxaparin/Lovenox 30 mg SQ daily (WT < 150 kg, CrCl > 10-29 mL/min) *Enoxaparin/Lovenox 30 mg SQ BID (WT < 150 kg, CrCl > 30 mL/min) AND *Sequential Compression Device (SCD) Assessment and Plan Assessment and Plan 81 years old female with recent hospitalized for UTI came with SVT with heart rate of 140 Epigastric pain with history of H. pylori peptic ulcer Acute anemia with hemoglobin dropped from 11.32 8.1 rule out GI bleed History of Escherichia coli UTI Diabetes mellitus Hypertension DVT prophylaxis contraindicated due to drop in hemoglobin possible GI bleed Plan: Stat EKG to assess her tachycardia, reviewed personally by me showed Sinus tachycardia with short NM interval ST deviation and moderate T-wave abnormality I gave one dose of labetalol 10 mg iv stat, heart rate dropped below 100, if tachycardia relapse will place on Cardizem drip Cardiac enzymes and consult cardiology for multiple SVT episodes FOBT rule out GI bleed, consider GI consult No DVT prophylaxis or heparin due to drop in hemoglobin H&H this evening and in a.m. Continue home meds for hypertension Continue glipizide, Accu-Chek and ISS Discussed Condition With Patient in ED physician Physician Certification 2 Midnight Certification Type: Admission for Inpatient Services Order for Inpatient Services The services are ordered in accordance with Medicare regulations or non- Medicare payer requirements, as applicable. In the case of services not specified as inpatient-only, they are appropriately provided as inpatient services in accordance with the 2-midnight benchmark. Estimated LOS (days): 2 days is the estimated time the patient will need to remain in the hospital, assuming treatment plan goals are met and no additional complications. Post-Hospital Plan: Not yet determined Ferny Mejia MD Jan 19, 2017 16:10
--- NOTE | 2017-01-19 16:12 | PD ---
HPI Chief Complaint: Abdominal Pain Time Seen by Provider: 11:00 Travel History International Travel<30 days: No Contact w/Intl Traveler<30days: No Traveled to known affect area: No History of Present Illness HPI Patient is an 81-year-old female who comes in complaining of abdominal pain. She was discharged from the hospital 3 days ago. Says the pain is in the middle of her abdomen. She denies fever or chills. She says she's had some nausea but no vomiting. She denies any bloody bowel movements. She says she "doesn't feel well." PFSH Past Medical History Autoimmune Disease: No Blood Disorders: No Heart Rhythm Problems: No Cancer: No Cardiovascular Problems: Yes (2 accounts of SVT in 2017) High Cholesterol: No Chemotherapy: No Chest Pain: Yes Congestive Heart Failure: No Diabetes: Yes Patient Takes Glucophage: No Diminished Hearing: No Endocrine: No Gastrointestinal Disorders: Yes Genitourinary: No Headaches: Yes Hypertension: Yes Immune Disorder: No Implanted Vascular Access Dvce: No Musculoskeletal: No Neurologic: No Psychiatric: No Reproductive: No Respiratory: No Immunizations Current: Yes Radiation Therapy: No Thyroid Disease: No Ulcer: Yes (STOMACH ULCER) Menopausal: Yes : 1 Para: 1 Miscarriage: 0 : 0 Tubal Ligation: Yes Past Surgical History Appendectomy: Yes (1955) Cholecystectomy: Yes (2002) Other Surgery: Yes (BREAST REDUCTION) Social History Alcohol Use: No Tobacco Use: No Substance Use: No Allergies-Medications (Allergen,Severity, Reaction): Coded Allergies: ciprofloxacin (Verified Allergy, Severe, RASH, VOMITING, 01/19/17) Reported Meds & Prescriptions Reported Meds & Active Scripts Active Walker Rolling/GetGo (Device) 1 Mis Mis Ea .ROUTE DIRECTED Walker Rolling/GetGo (Device) 1 Mis Mis Ea .ROUTE DIRECTED Reglan (Metoclopramide HCl) 10 Mg Tab 10 Mg PO QID Carafate Liq (Sucralfate) 1 Gm/10 Ml Susp 1 Gm PO TID on empty stomach Reported Bethanechol 25 Mg Tab 12.5 Mg PO QID Tramadol (Tramadol HCl) 50 Mg Tab 50 Mg PO Q8H PRN Ondansetron (Ondansetron HCl) 4 Mg Tab Ecotrin Low Strength (Aspirin) 81 Mg Tabdr 81 Mg PO DAILY Meclizine (Meclizine HCl) 25 Mg Tab 25 Mg PO TID PRN Aricept (Donepezil HCl) 5 Mg Tablet 5 Mg PO DAILY Lisinopril-Hctz 20-25 Mg Tab 1 Tab PO DAILY Omeprazole 40 Mg Cap 40 Mg PO DAILY Glipizide ER (Glipizide) 10 Mg Malgorzata 10 Mg PO DAILY Take with breakfast or first main meal of the day Lipitor (Atorvastatin Calcium) 40 Mg Tab 40 Mg PO HS Review of Systems Except as stated in HPI: all other systems reviewed are Neg General / Constitutional: Positive: Chills, No: Fever HENT: No: Headaches, Lightheadedness Cardiovascular: No: Chest Pain or Discomfort Respiratory: No: Shortness of Breath Gastrointestinal: Positive: Nausea, Abdominal Pain Genitourinary: No: Decreased Urinary Output Musculoskeletal: Positive: Myalgias Skin: No Rash, No Change in Pigmentation Neurologic: No: Weakness, Dizziness Physical Exam Narrative GENERAL: Awake and alert, in no acute distress. SKIN: Focused skin assessment warm/dry. HEAD: Atraumatic. Normocephalic. EYES: Pupils equal and round. No scleral icterus. ENT: Mucous membranes pink and moist. NECK: Trachea midline. No JVD. CARDIOVASCULAR: Regular rate and rhythm. No murmur appreciated. RESPIRATORY: No accessory muscle use. Clear to auscultation. Breath sounds equal bilaterally. GASTROINTESTINAL: Abdomen soft, nondistended. Tender to palpation in the suprapubic area. No rebound or guarding. MUSCULOSKELETAL: No obvious deformities. No clubbing. No cyanosis. No edema. NEUROLOGICAL: Awake and alert. No obvious cranial nerve deficits. Motor grossly within normal limits. Normal speech. PSYCHIATRIC: Appropriate mood and affect; insight and judgment normal. Data Data Last Documented VS Vital Signs Date Time Temp Pulse Resp B/P (MAP) Pulse Ox O2 Delivery O2 Flow Rate FiO2 01/19/17 13:14 98 Room Air 01/19/17 10:33 133 14 147/76 (99) Orders Orders Complete Blood Count With Diff (01/19/17 11:07) Comprehensive Metabolic Panel (01/19/17 11:07) Lipase (01/19/17 11:07) Prothrombin Time / Inr (Pt) (01/19/17 11:07) Act Partial Throm Time (Ptt) (01/19/17 11:07) Urinalysis - C+S If Indicated (01/19/17 11:07) Ct Abd/Pel W Iv Contrast(Rout) (01/19/17 11:07) Iv Access Insert/Monitor (01/19/17 11:07) Ecg Monitoring (01/19/17 11:07) Oximetry (01/19/17 11:07) Ondansetron Inj (Zofran Inj) (01/19/17 11:15) Sodium Chlor 0.9% 1000 Ml Inj (Ns 1000 M (01/19/17 11:07) Sodium Chloride 0.9% Flush (Ns Flush) (01/19/17 11:15) Urine Culture (01/19/17 11:20) Iohexol 350 Inj (Omnipaque 350 Inj) (01/19/17 10:24) Admit Order (Ed Use Only) (01/19/17 ) Labs Laboratory Tests Test 01/19/17 11:20 01/19/17 11:30 01/19/17 12:55 Urine Color LIGHT-YELLOW Urine Turbidity CLEAR Urine pH 7.5 Urine Specific [place] 1.007 Urine Protein TRACE mg/dL Urine Glucose (UA) NEG mg/dL Urine Ketones 10 mg/dL Urine Occult Blood NEG Urine Nitrite NEG Urine Bilirubin NEG Urine Urobilinogen LESS THAN 2.0 MG/DL Urine Leukocyte Esterase MOD Urine RBC 1 /hpf Urine WBC 11 /hpf Urine Squamous Epithelial Cells 2 /hpf Urine Bacteria RARE /hpf Urine Hyaline Casts 3 /lpf Urine Mucus FEW /lpf Microscopic Urinalysis Comment CULTURE INDICATED Blood Urea Nitrogen 8 MG/DL Creatinine 0.51 MG/DL Random Glucose 113 MG/DL Total Protein 8.4 GM/DL Albumin 2.6 GM/DL Calcium Level 9.4 MG/DL Alkaline Phosphatase 96 U/L Aspartate Amino Transf (AST/SGOT) 99 U/L Alanine Aminotransferase (ALT/SGPT) 59 U/L Total Bilirubin 0.8 MG/DL Sodium Level 139 MEQ/L Potassium Level 3.2 MEQ/L Chloride Level 103 MEQ/L Carbon Dioxide Level 21.4 MEQ/L Anion Gap 15 MEQ/L Estimat Glomerular Filtration Rate 116 ML/MIN Lipase 143 U/L Prothrombin Time 13.2 SEC Prothromb Time International Ratio 1.2 RATIO Activated Partial Thromboplast Time 23.6 SEC White Blood Count 6.5 TH/MM3 Red Blood Count 2.61 MIL/MM3 Hemoglobin 8.1 GM/DL Hematocrit 25.0 % Mean Corpuscular Volume 95.7 FL Mean Corpuscular Hemoglobin 30.9 PG Mean Corpuscular Hemoglobin Concent 32.3 % Red Cell Distribution Width 15.1 % Platelet Count 148 TH/MM3 Mean Platelet Volume 8.0 FL Neutrophils (%) (Auto) 74.8 % Lymphocytes (%) (Auto) 17.8 % Monocytes (%) (Auto) 7.1 % Eosinophils (%) (Auto) 0.1 % Basophils (%) (Auto) 0.2 % Neutrophils # (Auto) 4.8 TH/MM3 Lymphocytes # (Auto) 1.2 TH/MM3 Monocytes # (Auto) 0.5 TH/MM3 Eosinophils # (Auto) 0.0 TH/MM3 Basophils # (Auto) 0.0 TH/MM3 CBC Comment DIFF FINAL Differential Comment MDM Medical Decision Making Medical Screen Exam Complete: Yes Emergency Medical Condition: Yes Medical Record Reviewed: Yes Differential Diagnosis Electrolyte abnormality versus UTI versus colitis versus appendicitis Narrative Course Patient is an 81-year-old female who comes in complaining of abdominal pain. Exam shows suprapubic tenderness. IV established, labs sent. Labs show a hemoglobin of 8.1, which is down from 10.7 three days ago. Stool is negative for occult blood. Urinalysis is positive for UTI. Patient given antibiotics. Given IV fluids. CT abdomen and pelvis shows no explanation for her pain. Last 24 hours Impressions Abdomen/Pelvis CT 01/19/17 1107 Signed Impressions: Service Date/Time: January 12:54 - CONCLUSION: 1. 10 mm intermediate density nodule within the lower pole the right kidney which could represent a complex cyst or small solid lesion. Ultrasound or MRI with contrast may be helpful for further characterization of this indeterminate lesion. 2. Scattered tiny bilateral renal cysts. 3. Uncomplicated colonic diverticulosis. 4. Prominence of the extrahepatic biliary system which may be related to reservoir phenomenon status post cholecystectomy. 5. Coronary artery calcifications. 6. Mild degenerative changes throughout the thoracolumbar spine. Abdiel Lerma MD Patient placed in observation for further management. Diagnosis Primary Impression: UTI (urinary tract infection) Qualified Codes: N30.00 - Acute cystitis without hematuria Additional Impression: Anemia Qualified Codes: D64.9 - Anemia, unspecified Admitting Information Admitting Physician Requests: Observation Camelia Loza B MD Jan 19, 2017 16:12
[2017-01-19] MEDS ORDERED: DILTIAZEM HCL 25 MG/5 ML VIAL IV ONE (16:15)
[2017-01-19] MEDS: SUCRALFATE 1 GM/10 ML CUP PO SCH (17:00)
[2017-01-19] MEDS: INSULIN NovoLIN REGULAR SUPPLEMENTAL SCALE SQ SCH ×2 (17:00→21:00)
[2017-01-19] MEDS: glipiZIDE 5 MG TAB PO SCH (17:15)
[2017-01-19] MEDS: DEXTROSE 50% IN WATER 50 ML VIAL(D50) IV PUSH PRN (17:52)
--- NOTE | 2017-01-19 17:52 | RADRPT ---
EXAM DATE/TIME: 01/19/2017 16:07 [facility] COMPARISON: CT ABDOMEN & PELVIS W CONTRAST, January 19, 2017, 12:54. US ABDOMEN - LIVER, October 12, 2016, 9:18. EXTERNAL COMPARISON : [facility], US LIVER July 14, 2016. [facility], US ABDOMEN, COMPLETE March 31 6. [facility], US ABDOMEN, COMPLETE November 11, 2010. [facility], US ABDOMEN, COM PLETE September 10, 2008. [facility], US ABDOMEN, COMPLETE July 15, 2008. INDICATIONS : Abnormal CT. MEDICAL HISTORY : Hypertension. Cardiac disorder, SVT. Ulcer. Diabetes. SURGICAL HISTORY : Appendectomy. Tubal ligation. Cholecystectomy. Breast reduction. ENCOUNTER: Initial ACUITY: 1 day PAIN SCORE: 0/10 LOCATION: Bilateral flank MEASUREMENTS: RIGHT KIDNEY: 9.1 x 3.9 x 4.1 cm LEFT KIDNEY: 9.2 x 4.3 x 3.9 cm FINDINGS: RIGHT KIDNEY: Renal cortex is normal in thickness and echotexture. There is no hydronephrosis, stone or solid mass. The exam does demonstrate an 8 mm cyst in the lower pole of the right kidney. LEFT KIDNEY: Renal cortex is normal in thickness and echotexture. No hydronephrosis, stone, or mass. BLADDER: Within normal limits given the degree of distension. CONCLUSION: 1. The lesion identified by CT corresponds to an 8 mm cyst in the lower pole of the right kidney. 2. No hydronephrotic changes. Arvin Moreno MD on January 19, 2017 at 17:48 Board Certified Radiologist. This report was verified electronically.
[2017-01-19] MEDS: cefTRIAXone INJ 1,000 MG in SODIUM CHLORIDE 0.9% INJ 100 ML IV SCH (18:06)
[2017-01-19] MEDS: METOCLOPRAMIDE HCL 10 MG TAB PO SCH ×2 (18:07→21:17)
[2017-01-19] MEDS: ATORVASTATIN 40 MG TAB PO SCH (21:17)
[2017-01-19] MEDS: DOCUSATE SODIUM 50 MG/SENNA 8.6 MG TAB PO SCH (21:18)
[2017-01-19] MEDS: SODIUM CHLORIDE 0.9% FLUSH 10 ML FLUSH IV FLUSH SCH (21:18)
[2017-01-20] VITALS (23 sets, daily range): BP systolic 131–148; BP diastolic 53–84; PULSE 75–151; RESP 14–18; TEMP 97.3–98.3; O2SAT 92–98
[2017-01-20 07:01] LABS: AUTOMATED NEUTROPHIL # 2.2 TH/MM3 (1.8-7.7); BASOPHIL % 0.6 % (0.0-2.0); EOSINOPHIL # 0.1 TH/MM3 (0-0.4); EOSINOPHIL % 1.9 % (0.0-4.0); HEMATOCRIT 33.1 % (35.0-46.0); HEMO FLAGS DIFF FINAL; LYMPH % 43.2 % (9.0-44.0); LYMPHOCYTE # 2.3 TH/MM3 (1.0-4.8); MEAN CELL VOLUME 93.4 FL (80.0-100.0); MEAN CORPUSCULAR HEMOGLOBIN 31.8 PG (27.0-34.0); MONO % 12.9 % (0.0-8.0); NEUT % 41.4 % (16.0-70.0); PLATELET COUNT 262 TH/MM3 (150-450); RED BLOOD COUNT 3.54 MIL/MM3 (4.00-5.30); WHITE BLOOD COUNT 5.4 TH/MM3 (4.0-11.0)
[2017-01-20 07:36] LABS: POTASSIUM 2.5 MEQ/L (3.5-5.1)
[2017-01-20] MEDS: DEXTROSE 50% IN WATER 50 ML VIAL(D50) IV PUSH PRN (07:42)
[2017-01-20] MEDS: SODIUM CHLORIDE 0.9% FLUSH 10 ML FLUSH IV FLUSH SCH ×2 (07:47→09:51)
[2017-01-20] MEDS: INSULIN NovoLIN REGULAR SUPPLEMENTAL SCALE SQ SCH ×4 (08:00→20:49)
[2017-01-20] MEDS: glipiZIDE 5 MG TAB PO SCH ×2 (08:00→16:50)
--- NOTE | 2017-01-20 08:43 | MB ---
cc: ELY HAMMER MD DATE OF CONSULTATION: 01/20/2017 REASON FOR CONSULTATION SVT and indeterminate troponin. HISTORY OF PRESENT ILLNESS Ms. Matthew is an 80-year-old female who I have seen previously for elevated troponin and tachycardia. She had an extensive work-up over the summer for the same with an echocardiogram that showed normal LV function and a nuclear stress test that showed normal LV function and normal perfusion. The patient was discharged several days ago for a UTI and had an indeterminate troponin at that time as well as anemia. She re-presented last night with abdominal pain and was again found to have a UTI. The patient denies any cardiovascular complaints. PAST MEDICAL HISTORY 1. Supraventricular tachycardia. 2. 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 3. Urinary tract infection. 4. Diabetes. 5. Hypertension. 6. Hypernatremia. 7. Hypokalemia. 8. Altered mental status. MEDICATIONS Current medications per the record. REVIEW OF SYSTEMS Except as mentioned in the HPI all 12 systems are negative. PHYSICAL EXAMINATION VITAL SIGNS: Vital signs currently are 86, 18, 145/84. GENERAL: In general she is an emaciated elderly female who is in no apparent distress. NECK: Free from JVD. LUNGS: Clear to auscultation. CARDIOVASCULAR: Normal S1 and S2. I do not appreciate any murmurs, rubs or gallops. ABDOMEN: Soft. EXTREMITIES: Free from edema. LABORATORY Laboratory values are significant for: Potassium 3.2. Serial troponins of 0.08/0.07. Hemoglobin 8.1. EKG EKG shows sinus tachycardia with lateral ST-T depression. IMPRESSIONS/RECOMMENDATIONS Supraventricular tachycardia: The patient presents with recurrent UTI and abdominal pain from rehab. Her initial telemetry strip from EMS did show a heart rate in the 130s. This combined with her anemia is felt to give the secondary CO pattern with the indeterminate troponins. Of note all troponins in this patient have been in the indeterminate range at her last visits. Again, she has had a complete work-up just a couple of months ago. She remains asymptomatic. Given this and her anemia as well as her emaciated state she is not a revascularization candidate at this time in any case. Thus at this point I would continue with conservative medical management. The primary team will be managing her UTI and electrolyte abnormalities. I will be available p.r.n. as her SVT has already resolved. Dwaine Navarro/LYNETTE /7:36 AM /8:36 AM
[2017-01-20] MEDS ORDERED: NON-FORMULARY DRUG (Lisinopril-Hctz 1 TAB) PO SCH (09:00)
[2017-01-20] MEDS: DONEPEZIL HCL 5 MG TAB PO SCH (09:50)
[2017-01-20] MEDS: PANTOPRAZOLE SOD 40 MG DELAYED RELEASE TAB PO SCH (09:50)
[2017-01-20] MEDS: METOCLOPRAMIDE HCL 10 MG TAB PO SCH ×4 (09:50→20:48)
[2017-01-20] MEDS: DOCUSATE SODIUM 50 MG/SENNA 8.6 MG TAB PO SCH ×2 (09:50→20:48)
[2017-01-20] MEDS: SUCRALFATE 1 GM/10 ML CUP PO SCH ×3 (09:50→16:50)
[2017-01-20] MEDS: LISINOPRIL 20 MG TAB PO SCH (09:50)
[2017-01-20] MEDS: HYDROCHLOROTHIAZIDE 25 MG TAB PO SCH (09:50)
[2017-01-20] MEDS: POTASSIUM CHLORIDE 10 MEQ CONTROLLED RELEASE TAB PO SCH ×2 (10:15→20:48)
[2017-01-20 10:56] LABS: MAGNESIUM 1.4 MG/DL (1.5-2.5)
[2017-01-20] MEDS ORDERED: MAGNESIUM SULFATE 1 GM PREMIX 100 ML IV ONE (12:30)
--- NOTE | 2017-01-20 13:28 | HHI.PR ---
Subjective Remarks Patient seen and evaluated in follow-up for SVT which appears resolved. Patient hypokalemic and hypomagnesemic. Cardiology evaluation appreciated Objective Vitals Vital Signs Date Time Temp Pulse Resp B/P (MAP) Pulse Ox O2 Delivery O2 Flow Rate FiO2 01/20/17 12:00 124 01/20/17 11:00 95 01/20/17 11:00 98.3 96 14 136/67 (90) 96 01/20/17 10:04 96 01/20/17 10:00 122 01/20/17 09:00 77 01/20/17 08:00 75 01/20/17 07:00 97.4 110 16 148/83 (104) 96 01/20/17 07:00 103 01/20/17 06:00 96 01/20/17 05:00 86 01/20/17 04:00 115 01/20/17 03:00 82 01/20/17 03:00 97.8 115 18 145/84 (104) 98 01/20/17 02:00 96 01/20/17 01:00 94 01/20/17 00:00 96 01/19/17 23:30 98 01/19/17 23:00 108 01/19/17 23:00 97.1 102 18 123/65 (84) 98 01/19/17 22:00 96 01/19/17 21:00 72 01/19/17 20:00 130 01/19/17 19:43 97.4 102 18 147/77 (100) 100 01/19/17 19:00 94 01/19/17 18:30 97.9 90 16 97 01/19/17 17:19 01/19/17 17:15 97.5 78 16 154/84 (107) 01/19/17 15:46 134 14 167/74 (105) 98 Room Air I/O 01/19/17 01/19/17 01/19/17 01/20/17 01/20/17 01/20/17 07:00 15:00 23:00 07:00 15:00 23:00 Intake Total 1000 ml 200 ml 200 ml Output Total 200 ml 200 ml Balance 1000 ml 0 ml 0 ml Intake Oral 200 ml 200 ml IV Total 1000 ml Output Urine Total 200 ml 200 ml # Bowel Movements 1 Result Diagram: 01/20/17 0601/20/17 0600 Objective Remarks GENERAL: This is a well-nourished, well-developed patient, in no apparent distress. CARDIOVASCULAR: Regular rate and rhythm without murmurs, gallops, or rubs. RESPIRATORY: Clear to auscultation. Breath sounds equal bilaterally. No wheezes , rales, or rhonchi. GASTROINTESTINAL: Abdomen soft, non-tender, nondistended. Normal active bowel sounds MUSCULOSKELETAL: Extremities without clubbing, cyanosis, or edema. NEURO: Alert & Oriented x4 to person, place, time, situation. Moves all ext x4 A/P Problem List: (1) UTI (urinary tract infection) ICD Code: N39.0 - Urinary tract infection, site not specified Status: Acute Plan: Continue IV Rocephin, conjugated due to diabetes Cultures positive for enterococcus (2) Elevated troponin ICD Code: R74.8 - Abnormal levels of other serum enzymes Status: Acute Plan: apparently chronic per old records no new evaluation planned as patient recently had this evaluated stress test completed 10/2016 Cardiology evaluation appreciated (3) Diabetes ICD Code: E11.9 - Type 2 diabetes mellitus without complications Status: Chronic Plan: Continue with diabetic management and diet (4) Anemia ICD Code: D64.9 - Anemia, unspecified Status: Acute Plan: Anemia of chronic disease likely secondary to diabetes Continue current medical management (5) Possible NPH Plan: Status post lumbar drain and removal. Patient refused a shot and would like to continue with conservative therapy. (6) Abdominal pain ICD Code: R10.9 - Unspecified abdominal pain Plan: currently resolved Previous evaluation and hospitalization 10/2016 and last week Discharge Planning Likely to [facility] facility in a.m. Problem Qualifiers (1) UTI (urinary tract infection): Qualified Codes: N30.00 - Acute cystitis without hematuria (2) Anemia: Qualified Codes: D64.9 - Anemia, unspecified Elke Jane MD Jan 20, 2017 13:28
[2017-01-20] MEDS: cefTRIAXone INJ 1,000 MG in SODIUM CHLORIDE 0.9% INJ 100 ML IV SCH (16:57)
[2017-01-20 17:15] LABS: HEMOGLOBIN A1a 1.7 %; HEMOGLOBIN A1b 0.7 %; HEMOGLOBIN Ao 83.9 %; HEMOGLOBIN F 4.1 %; HEMOGLOBIN LA1C 1.3 %; HEMOGLOBIN P3 3.4 %
--- NOTE | 2017-01-20 18:31 | EKG ---
Date Performed: 01/19/2017 Time Performed: 15:56:45 PTAGE: 81 years EKG: SINUS TACHYCARDIA WITH SHORT UT INTERVAL DIFFUSED NONSPECIFIC ST-T WAVE CHANGE Compared to previous tracing, heart rate is faster and ST-T changes are more prominent. ABNORMAL ECG PREVIOUS TRACING : 01/07/2017 02.18 DOCTOR: Lito Choe Interpretating Date/Time 01/20/2017 18:31:32
[2017-01-20 19:05] LABS: HEMATOCRIT 31.3 % (35.0-46.0); REVIEW FLAG FINAL
[2017-01-20] MEDS: ATORVASTATIN 40 MG TAB PO SCH (20:48)
[2017-01-20] MEDS ORDERED: diphenhydrAMINE HCL 25 MG CAP PO ONE (23:30)
[2017-01-21] VITALS (10 sets, daily range): BP systolic 126–145; BP diastolic 59–82; PULSE 67–121; RESP 16–18; TEMP 97.5–97.9; O2SAT 93–100
[2017-01-21] MEDS ORDERED: diphenhydrAMINE HCL 50 MG/ML VIAL IV PUSH ONE (04:15)
[2017-01-21] MEDS: INSULIN NovoLIN REGULAR SUPPLEMENTAL SCALE SQ SCH ×4 (08:00→21:00)
[2017-01-21] MEDS: SUCRALFATE 1 GM/10 ML CUP PO SCH ×3 (08:50→16:52)
[2017-01-21] MEDS: POTASSIUM CHLORIDE 10 MEQ CONTROLLED RELEASE TAB PO SCH (08:50)
[2017-01-21] MEDS: PANTOPRAZOLE SOD 40 MG DELAYED RELEASE TAB PO SCH (08:51)
[2017-01-21] MEDS: METOCLOPRAMIDE HCL 10 MG TAB PO SCH ×4 (08:51→21:21)
[2017-01-21] MEDS: LISINOPRIL 20 MG TAB PO SCH (08:51)
[2017-01-21] MEDS: DOCUSATE SODIUM 50 MG/SENNA 8.6 MG TAB PO SCH ×2 (08:51→21:00)
[2017-01-21] MEDS: SODIUM CHLORIDE 0.9% FLUSH 10 ML FLUSH IV FLUSH SCH ×2 (08:53→21:21)
[2017-01-21] MEDS: DONEPEZIL HCL 5 MG TAB PO SCH (08:53)
[2017-01-21] MEDS: HYDROCHLOROTHIAZIDE 25 MG TAB PO SCH (08:53)
[2017-01-21] MEDS ORDERED: DILTIAZEM-CD 120 MG CAP ER PO ONE (12:00)
[2017-01-21 12:10] LABS: BICARBONATE 27.5 MEQ/L (21.0-32.0); MAGNESIUM 1.6 MG/DL (1.5-2.5)
[2017-01-21 12:21] LABS: POTASSIUM 5.4 MEQ/L (3.5-5.1)
[2017-01-21] MEDS ORDERED: NITR1CAP36 PO (13:54)
[2017-01-21] MEDS ORDERED: DILT120C50 PO (13:54)
[2017-01-21] MEDS ORDERED: METOPROLOL TARTRATE 25 MG TAB PO ONE (14:30)
--- NOTE | 2017-01-21 16:21 | HHI.PR ---
Subjective Remarks Recurrent problems with SVT today. Maximum heart rate was in the 170s. She had otherwise been ready for discharge. Objective Vital Signs Date Time Temp Pulse Resp B/P (MAP) Pulse Ox O2 Delivery O2 Flow Rate FiO2 01/21/17 12:00 97.6 107 16 138/62 (87) 100 01/21/17 08:45 93 21 01/21/17 08:00 97.8 67 16 129/59 (82) 100 01/21/17 04:08 96 01/21/17 04:00 97.5 121 18 145/65 (91) 98 01/21/17 00:00 97.6 94 18 132/61 (84) 96 01/20/17 20:01 91 01/20/17 20:00 97.9 100 18 131/53 (79) 97 01/20/17 18:10 97.4 80 18 136/65 (88) 92 01/20/17 17:20 97 21 01/20/17 17:00 104 I/O 01/20/17 01/20/17 01/20/17 01/21/17 01/21/17 01/21/17 07:00 15:00 23:00 07:00 15:00 23:00 Intake Total 200 ml 100 ml 240 ml Output Total 200 ml Balance 0 ml 100 ml 240 ml Intake Oral 200 ml 100 ml 240 ml Output Urine Total 200 ml # Voids 6 2 # Bowel Movements 1 1 Result Diagram: 01/20/17 1828 01/21/17 1054 Objective Remarks GENERAL: NAD, A&Ox3 HEAD: Normocephalic. NECK: Supple, trachea midline. No lymphadenopathy. EYES: No scleral icterus. No injection or drainage. CARDIOVASCULAR: Tachycardia and regular rhythm without murmurs, gallops, or rubs. RESPIRATORY: Breath sounds equal bilaterally. No accessory muscle use. GASTROINTESTINAL: Abdomen soft, non-tender, nondistended. MUSCULOSKELETAL: No cyanosis, or edema. SKIN: Warm and dry. NEURO: No focal neurological deficitis. A/P Problem List: (1) SVT (supraventricular tachycardia) ICD Code: I47.1 - Supraventricular tachycardia (2) Elevated troponin ICD Code: R74.8 - Abnormal levels of other serum enzymes Status: Acute (3) UTI (urinary tract infection) ICD Code: N39.0 - Urinary tract infection, site not specified Status: Acute (4) Diabetes ICD Code: E11.9 - Type 2 diabetes mellitus without complications Status: Chronic (5) Hypertension ICD Code: I10 - Essential (primary) hypertension Status: Chronic Assessment and Plan Assessment and plan 81-year-old female admitted secondary to UTI and anemia now with SVT. SVT Continue metoprolol Follow on telemetry This will need to be resolved prior to discharge If not resolved by tomorrow we'll consult cardiology for further assistance Urinary tract infection Nitrofurantoin Probiotics Troponin elevation May be related to recurrent SVT Diabetes mellitus type 2 Follow blood sugars Insulin sliding scale Diabetic diet Anemia Related to chronic disease No acute changes Possible normal pressure hydrocephalus Status post lumbar drain and removal Conservative therapy Abdominal pain Resolved Problem Qualifiers (1) UTI (urinary tract infection): Qualified Codes: N30.00 - Acute cystitis without hematuria Arvin Nichols MD Jan 21, 2017 16:21
[2017-01-21] MEDS: LACTOBACILLUS ACIDOPHILUS TAB PO SCH (16:52)
[2017-01-21] MEDS: NITROFURANTOIN MONOHYD MACROCR 100 MG CAP PO SCH (18:41)
[2017-01-21] MEDS: ATORVASTATIN 40 MG TAB PO SCH (21:21)
[2017-01-22] VITALS (10 sets, daily range): BP systolic 105–158; BP diastolic 59–94; PULSE 61–136; RESP 16–19; TEMP 97.7–98.9; O2SAT 95–99
[2017-01-22] MEDS: SUCRALFATE 1 GM/10 ML CUP PO SCH ×3 (06:20→16:51)
[2017-01-22] MEDS: INSULIN NovoLIN REGULAR SUPPLEMENTAL SCALE SQ SCH ×4 (08:00→21:00)
[2017-01-22] MEDS ORDERED: DILTIAZEM-CD 120 MG CAP ER PO SCH (09:00)
[2017-01-22 09:19] LABS: AUTOMATED NEUTROPHIL # 26.4 TH/MM3 (1.8-7.7); BASOPHIL # 0.1 TH/MM3 (0-0.2); BASOPHIL % 0.4 % (0.0-2.0); EOSINOPHIL % 0.1 % (0.0-4.0); HEMATOCRIT 32.2 % (35.0-46.0); HEMO FLAGS DIFF FINAL; LYMPH % 1.2 % (9.0-44.0); LYMPHOCYTE # 0.3 TH/MM3 (1.0-4.8); MEAN CELL VOLUME 93.4 FL (80.0-100.0); MEAN CORPUSCULAR HEMOGLOBIN 30.8 PG (27.0-34.0); MONO % 1.1 % (0.0-8.0); NEUT % 97.2 % (16.0-70.0); PLATELET COUNT 253 TH/MM3 (150-450); RED BLOOD COUNT 3.44 MIL/MM3 (4.00-5.30); RED CELL DISTRIBUTION WIDTH 15.1 % (11.6-17.2); WHITE BLOOD COUNT 27.2 TH/MM3 (4.0-11.0)
[2017-01-22 09:35] LABS: ALKALINE PHOSPHATASE 65 U/L (45-117); ALT (GPT) 29 U/L (10-53); ANION GAP 7 MEQ/L (5-15); AST (GOT) 47 U/L (15-37); BICARBONATE 24.3 MEQ/L (21.0-32.0); BLOOD UREA NITROGEN 11 MG/DL (7-18); CHLORIDE 101 MEQ/L (98-107); GLOMERULAR FILTRATION RATE 98 ML/MIN (>89); SODIUM (NA) 132 MEQ/L (136-145); TOTAL BILIRUBIN ADULT 0.6 MG/DL (0.2-1.0)
[2017-01-22] MEDS: LACTOBACILLUS ACIDOPHILUS TAB PO SCH ×3 (09:57→16:51)
[2017-01-22] MEDS: DOCUSATE SODIUM 50 MG/SENNA 8.6 MG TAB PO SCH ×2 (09:57→21:01)
[2017-01-22] MEDS: PANTOPRAZOLE SOD 40 MG DELAYED RELEASE TAB PO SCH (09:57)
[2017-01-22] MEDS: METOPROLOL TARTRATE 25 MG TAB PO SCH ×2 (09:57→21:01)
[2017-01-22] MEDS: NITROFURANTOIN MONOHYD MACROCR 100 MG CAP PO SCH ×2 (09:57→21:00)
[2017-01-22] MEDS: HYDROCHLOROTHIAZIDE 25 MG TAB PO SCH (09:57)
[2017-01-22] MEDS: DONEPEZIL HCL 5 MG TAB PO SCH (09:57)
[2017-01-22] MEDS: METOCLOPRAMIDE HCL 10 MG TAB PO SCH ×4 (09:58→21:01)
[2017-01-22] MEDS: SODIUM CHLORIDE 0.9% FLUSH 10 ML FLUSH IV FLUSH SCH ×2 (09:58→21:00)
--- NOTE | 2017-01-22 15:30 | HHI.PR ---
Subjective Remarks Heart rate is improved today. Rates have been up to the 170s and 160s so previous discharge have been held yesterday. However, today white blood cell count has rapidly increased and is a 27. Monitoring to ensure this is not new or progressive will occur, so discharge deferred for now. Objective Vital Signs Date Time Temp Pulse Resp B/P (MAP) Pulse Ox O2 Delivery O2 Flow Rate FiO2 01/22/17 12:00 98.0 61 18 124/59 (80) 98 01/22/17 10:54 98 21 01/22/17 10:05 Room Air 01/22/17 09:53 98.0 82 19 135/91 (106) 98 01/22/17 08:00 98.0 90 16 127/60 (82) 98 01/22/17 04:00 Room Air 01/22/17 04:00 98.4 136 19 158/70 (99) 99 01/22/17 00:00 98.1 85 19 155/72 (99) 98 01/22/17 00:00 Room Air 01/21/17 21:23 96 01/21/17 20:07 101 01/21/17 20:00 97.9 97 18 141/82 (101) 97 01/21/17 20:00 Room Air 01/21/17 16:00 97.8 104 16 126/63 (84) 98 I/O 01/21/17 01/21/17 01/21/17 01/22/17 01/22/17 01/22/17 07:00 15:00 23:00 07:00 15:00 23:00 Intake Total 240 ml 960 ml 100 ml Balance 240 ml 960 ml 100 ml Intake Oral 240 ml 960 ml 100 ml # Voids 2 6 3 # Bowel Movements 1 2 1 Result Diagram: 01/22/1772101/22/17721 Objective Remarks GENERAL: NAD, A&Ox3 HEAD: Normocephalic. NECK: Supple, trachea midline. No lymphadenopathy. EYES: No scleral icterus. No injection or drainage. CARDIOVASCULAR: Tachycardia and regular rhythm without murmurs, gallops, or rubs. RESPIRATORY: Breath sounds equal bilaterally. No accessory muscle use. GASTROINTESTINAL: Abdomen soft, non-tender, nondistended. MUSCULOSKELETAL: No cyanosis, or edema. SKIN: Warm and dry. NEURO: No focal neurological deficitis. A/P Problem List: (1) SVT (supraventricular tachycardia) ICD Code: I47.1 - Supraventricular tachycardia (2) Elevated troponin ICD Code: R74.8 - Abnormal levels of other serum enzymes Status: Acute (3) UTI (urinary tract infection) ICD Code: N39.0 - Urinary tract infection, site not specified Status: Acute (4) Diabetes ICD Code: E11.9 - Type 2 diabetes mellitus without complications Status: Chronic (5) Hypertension ICD Code: I10 - Essential (primary) hypertension Status: Chronic Assessment and Plan Assessment and plan 81-year-old female admitted secondary to UTI and anemia now with SVT. The acute leukocytosis may be secondary to starting nitrofurantoin, her UTI was resistant to other treatments so this may be reactive to first 24 hours of actual treatment. Follow CBC. Consider discharge if she has a downward trend in her white blood cell count. Continue to monitor on telemetry to ensure no recurrence of SVT. SVT Continue metoprolol Follow on telemetry This will need to be resolved prior to discharge If not resolved by tomorrow we'll consult cardiology for further assistance Urinary tract infection Leukocytosis Nitrofurantoin Probiotics Follow CBC Troponin elevation May be related to recurrent SVT Diabetes mellitus type 2 Follow blood sugars Insulin sliding scale Diabetic diet Anemia Related to chronic disease No acute changes Possible normal pressure hydrocephalus Status post lumbar drain and removal Conservative therapy Abdominal pain Resolved Problem Qualifiers (1) UTI (urinary tract infection): Qualified Codes: N30.00 - Acute cystitis without hematuria Arvin Nichols MD Jan 22, 2017 15:29
--- NOTE | 2017-01-22 18:50 | RADRPT ---
EXAM DATE/TIME: 01/22/2017 18:28 [facility] COMPARISON: CT BRAIN W/O CONTRAST, January 06, 2017, 15:36. INDICATIONS : Trauma, fall today. RADIATION DOSE: 28.05 CTDIvol (mGy) MEDICAL HISTORY : Cardiovascular disease. Hypertension. SURGICAL HISTORY : Appendectomy. Cholecystectomy. ENCOUNTER: Initial ACUITY: 1 day PAIN SCALE: 6/10 LOCATION: Bilateral head TECHNIQUE: Multiple contiguous axial images were obtained of the head. Using automated exposure control and adj ustment of the mA and/or kV according to patient size, radiation dose was kept as low as reasonably a chievable to obtain optimal diagnostic quality images. DICOM format image data is available electro nically for review and comparison. FINDINGS: There are bilateral subdural collections, hypodense. Patchy hypodensity in the bilateral periventricu lar white matter and basal ganglia consistent with chronic microvascular ischemic disease. There is m ild ventriculomegaly which is stable. No fractures. CONCLUSION: Interval development of bilateral subdural hygromas. Maximal transverse width on the right of 1.4 cm, and the left 1.4 cm. Yasir Berry MD on January 22, 2017 at 18:48 Board Certified Radiologist. This report was verified electronically.
[2017-01-22] MEDS: ATORVASTATIN 40 MG TAB PO SCH (21:01)
[2017-01-23] VITALS (9 sets, daily range): BP systolic 129–160; BP diastolic 60–88; PULSE 58–106; RESP 16–19; TEMP 97.4–98.3; O2SAT 96–100
[2017-01-23] MEDS: INSULIN NovoLIN REGULAR SUPPLEMENTAL SCALE SQ SCH ×4 (08:00→21:00)
[2017-01-23] MEDS: SUCRALFATE 1 GM/10 ML CUP PO SCH ×3 (08:44→17:07)
[2017-01-23] MEDS: SODIUM CHLORIDE 0.9% FLUSH 10 ML FLUSH IV FLUSH SCH ×2 (08:45→21:00)
[2017-01-23] MEDS: DONEPEZIL HCL 5 MG TAB PO SCH (08:47)
[2017-01-23] MEDS: HYDROCHLOROTHIAZIDE 25 MG TAB PO SCH (08:48)
[2017-01-23] MEDS: METOPROLOL TARTRATE 25 MG TAB PO SCH ×2 (08:49→22:43)
[2017-01-23] MEDS: LACTOBACILLUS ACIDOPHILUS TAB PO SCH ×3 (08:49→17:08)
[2017-01-23] MEDS: DOCUSATE SODIUM 50 MG/SENNA 8.6 MG TAB PO SCH ×2 (08:50→21:00)
[2017-01-23] MEDS: NITROFURANTOIN MONOHYD MACROCR 100 MG CAP PO SCH ×2 (08:50→17:09)
[2017-01-23] MEDS: METOCLOPRAMIDE HCL 10 MG TAB PO SCH ×4 (08:51→22:43)
[2017-01-23] MEDS: PANTOPRAZOLE SOD 40 MG DELAYED RELEASE TAB PO SCH (08:51)
[2017-01-23 12:48] LABS: AUTOMATED NEUTROPHIL # 10.4 TH/MM3 (1.8-7.7); BASOPHIL % 0.2 % (0.0-2.0); EOSINOPHIL # 0.2 TH/MM3 (0-0.4); EOSINOPHIL % 1.6 % (0.0-4.0); HEMATOCRIT 35.4 % (35.0-46.0); HEMO FLAGS DIFF FINAL; LYMPH % 7.4 % (9.0-44.0); LYMPHOCYTE # 0.9 TH/MM3 (1.0-4.8); MEAN CELL VOLUME 93.4 FL (80.0-100.0); MEAN CORPUSCULAR HEMOGLOBIN 30.8 PG (27.0-34.0); MONO % 2.8 % (0.0-8.0); PLATELET COUNT 234 TH/MM3 (150-450); RED BLOOD COUNT 3.78 MIL/MM3 (4.00-5.30); RED CELL DISTRIBUTION WIDTH 15.1 % (11.6-17.2); WHITE BLOOD COUNT 11.9 TH/MM3 (4.0-11.0)
--- NOTE | 2017-01-23 13:04 | HHI.PR ---
Subjective Remarks The patient's that she fell last night and hit her head. She still complains of some head soreness. She has no other acute complaints. Discussed with nursing. Objective Vitals Vital Signs Date Time Temp Pulse Resp B/P (MAP) Pulse Ox O2 Delivery O2 Flow Rate FiO2 01/23/17 12:02 97.4 61 19 142/67 (92) 100 01/23/17 11:17 106 01/23/17 11:13 100 Room Air 01/23/17 08:02 98.3 65 19 147/63 (91) 100 01/23/17 04:00 97.6 80 17 143/71 (95) 96 01/23/17 04:00 Room Air 01/23/17 00:00 97.6 72 17 135/71 (92) 98 01/23/17 00:00 Room Air 01/22/17 20:07 74 01/22/17 20:00 97.7 73 17 144/68 (93) 99 01/22/17 20:00 Room Air 01/22/17 17:50 122 134/94 (107) 97 01/22/17 16:00 98.9 74 16 105/70 (82) 95 I/O 01/22/17 01/22/17 01/22/17 01/23/17 01/23/17 01/23/17 07:00 15:00 23:00 07:00 15:00 23:00 Intake Total 100 ml 720 ml 240 ml Balance 100 ml 720 ml 240 ml Intake Oral 100 ml 720 ml 240 ml # Voids 3 3 3 # Bowel Movements 1 1 1 Result Diagram: 01/23/17 1200 01/22/17 0722 Imaging Last Impressions Head CT 01/22/17 0000 Signed Impressions: Service Date/Time: Sunday, January 22, 2017 18:28 - CONCLUSION: Interval development of bilateral subdural hygromas. Maximal transverse width on the right of 1.4 cm, and the left 1.4 cm. Yasir Berry MD Abdomen/Pelvis CT 01/19/17 1107 Signed Impressions: Service Date/Time: January 12:54 - CONCLUSION: 1. 10 mm intermediate density nodule within the lower pole the right kidney which could represent a complex cyst or small solid lesion. Ultrasound or MRI with contrast may be helpful for further characterization of this indeterminate lesion. 2. Scattered tiny bilateral renal cysts. 3. Uncomplicated colonic diverticulosis. 4. Prominence of the extrahepatic biliary system which may be related to reservoir phenomenon status post cholecystectomy. 5. Coronary artery calcifications. 6. Mild degenerative changes throughout the thoracolumbar spine. Abdiel Lerma MD Renal Ultrasound 01/19/17 0000 Signed Impressions: Service Date/Time: January 16:07 - CONCLUSION: 1. The lesion identified by CT corresponds to an 8 mm cyst in the lower pole of the right kidney. 2. No hydronephrotic changes. Arvin Moreno MD Objective Remarks GENERAL: NAD, A&Ox3 HEAD: Normocephalic. Tender to palpation of scalp. NECK: Supple, trachea midline. No lymphadenopathy. EYES: No scleral icterus. No injection or drainage. CARDIOVASCULAR: Tachycardia and regular rhythm without murmurs, gallops, or rubs. RESPIRATORY: Breath sounds equal bilaterally. No accessory muscle use. GASTROINTESTINAL: Abdomen soft, non-tender, nondistended. MUSCULOSKELETAL: No cyanosis, or edema. SKIN: Warm and dry. NEURO: No focal neurological deficitis. Medications and IVs Current Medications Medications (Trade) Dose Ordered Sig/Jordan Route Start Time Stop Time Status Last Admin (NS Flush) 2 ml UNSCH PRN IV FLUSH 01/19/17 15:15 (NS Flush) 2 ml BID IV FLUSH 01/19/17 21:00 01/23/17 08:45 (Narcan Inj) 0.4 mg UNSCH PRN IV PUSH 01/19/17 15:15 (Lara-Colace) 1 tab BID PO 01/19/17 21:00 01/23/17 08:50 (Milk Of Magnesia Liq) 30 ml Q12H PRN PO 01/19/17 15:15 (Senokot) 17.2 mg Q12H PRN PO 01/19/17 15:15 (Dulcolax Supp) 10 mg DAILY PRN RECTAL 01/19/17 15:15 (Lipitor) 40 mg HS PO 01/19/17 21:00 01/22/17 21:01 (Aricept) 5 mg DAILY PO 01/20/17 09:00 01/23/17 08:47 (Reglan) 10 mg QID PO 01/19/17 18:00 01/23/17 08:51 (Carafate Liq) 1 gm TIDAC PO 01/19/17 17:00 01/23/17 08:44 (Glucotrol) 5 mg BID@0800,1700 PO 01/19/17 17:15 Future Hold (Protonix) 40 mg DAILY PO 01/20/17 09:00 01/23/17 08:51 (NovoLIN R SUPPLEMENTAL SCALE) 1 ACHS SLIDING SCALE SQ 01/19/17 17:00 01/22/17 12:00 (D50w (Vial) Inj) 50 ml UNSCH PRN IV PUSH 01/19/17 16:00 01/20/17 07:42 (Glucagon Inj) 1 mg UNSCH PRN OTHER 01/19/17 16:00 (Hydrodiuril) 25 mg DAILY PO 01/20/17 09:00 01/23/17 08:48 (Lopressor) 25 mg Q12HR PO 01/22/17 09:00 01/23/17 08:49 (Macrobid) 100 mg BIDPC PO 01/21/17 18:00 01/23/17 08:50 (Lactinex) 1 tab TID PO 01/21/17 18:00 01/23/17 08:49 A/P Problem List: (1) UTI (urinary tract infection) ICD Code: N39.0 - Urinary tract infection, site not specified Status: Acute (2) Elevated troponin ICD Code: R74.8 - Abnormal levels of other serum enzymes Status: Acute (3) Diabetes ICD Code: E11.9 - Type 2 diabetes mellitus without complications Status: Chronic (4) Anemia ICD Code: D64.9 - Anemia, unspecified Status: Acute (5) Possible NPH (6) Abdominal pain ICD Code: R10.9 - Unspecified abdominal pain Assessment and Plan 81-year-old female admitted secondary to UTI and anemia now with SVT. The acute leukocytosis may be secondary to starting nitrofurantoin, her UTI was resistant to other treatments so this may be reactive to first 24 hours of actual treatment. Follow CBC. Consider discharge if she has a downward trend in her white blood cell count. Continue to monitor on telemetry to ensure no recurrence of SVT. SVT Continue metoprolol Follow on telemetry. Still has episodes of tachycardia. Reconsult cardiology in AM if continues. Urinary tract infection Leukocytosis Nitrofurantoin Probiotics Follow CBC Troponin elevation May be related to recurrent SVT Diabetes mellitus type 2 Follow blood sugars Insulin sliding scale Diabetic diet Anemia Related to chronic disease No acute changes Possible normal pressure hydrocephalus Status post lumbar drain and removal Conservative therapy Abdominal pain Resolved Leukocytosis Possibly s/t UTI. - follow CBC. - treat UTI as above. Head trauma CT showed subdural hygromas. - Neurosurgery consult requested. Discharge Planning Await NS eval, improvement of leukocytosis and SVT Problem Qualifiers (1) UTI (urinary tract infection): Qualified Codes: N30.00 - Acute cystitis without hematuria (2) Anemia: Qualified Codes: D64.9 - Anemia, unspecified Daryl Moffett DO Jan 23, 2017 13:03
[2017-01-23 13:12] LABS: BICARBONATE 27.8 MEQ/L (21.0-32.0); POTASSIUM 3.4 MEQ/L (3.5-5.1)
[2017-01-23] MEDS ORDERED: ALUMINUM/MAGNESIUM/SIMETH 30 ML CUP PO PRN (14:15)
[2017-01-23] MEDS ORDERED: POTASSIUM CHLORIDE 25 MEQ EFFERVESCENT TAB PO ONE (17:00)
[2017-01-23] MEDS: ATORVASTATIN 40 MG TAB PO SCH (22:43)
[2017-01-24] VITALS (8 sets, daily range): BP systolic 144–172; BP diastolic 64–83; PULSE 55–87; RESP 16–18; TEMP 97.3–98.7; O2SAT 97–99
[2017-01-24 06:50] LABS: HEMATOCRIT 34.1 % (35.0-46.0); MEAN CELL VOLUME 92.3 FL (80.0-100.0); MEAN CORPUSCULAR HEMOGLOBIN 31.3 PG (27.0-34.0); MEAN CORPUSCULAR HGB CONC 33.9 % (32.0-36.0); PLATELET COUNT 225 TH/MM3 (150-450); RED BLOOD COUNT 3.69 MIL/MM3 (4.00-5.30); RED CELL DISTRIBUTION WIDTH 14.6 % (11.6-17.2); REVIEW FLAG FINAL; WHITE BLOOD COUNT 9.2 TH/MM3 (4.0-11.0)
[2017-01-24 07:25] LABS: BICARBONATE 27.6 MEQ/L (21.0-32.0); MAGNESIUM 1.4 MG/DL (1.5-2.5); POTASSIUM 3.1 MEQ/L (3.5-5.1)
[2017-01-24] MEDS: SODIUM CHLORIDE 0.9% FLUSH 10 ML FLUSH IV FLUSH SCH ×2 (07:27→20:49)
[2017-01-24] MEDS: INSULIN NovoLIN REGULAR SUPPLEMENTAL SCALE SQ SCH ×4 (07:58→21:00)
[2017-01-24] MEDS: METOPROLOL TARTRATE 25 MG TAB PO SCH (08:41)
[2017-01-24] MEDS: DOCUSATE SODIUM 50 MG/SENNA 8.6 MG TAB PO SCH (08:41)
[2017-01-24] MEDS: NITROFURANTOIN MONOHYD MACROCR 100 MG CAP PO SCH ×2 (08:41→17:20)
[2017-01-24] MEDS: METOCLOPRAMIDE HCL 10 MG TAB PO SCH ×4 (08:42→20:48)
[2017-01-24] MEDS: LACTOBACILLUS ACIDOPHILUS TAB PO SCH ×3 (08:42→17:19)
[2017-01-24] MEDS: PANTOPRAZOLE SOD 40 MG DELAYED RELEASE TAB PO SCH (08:42)
[2017-01-24] MEDS: SUCRALFATE 1 GM/10 ML CUP PO SCH ×3 (08:42→17:20)
[2017-01-24] MEDS: HYDROCHLOROTHIAZIDE 25 MG TAB PO SCH (08:42)
[2017-01-24] MEDS: DONEPEZIL HCL 5 MG TAB PO SCH (08:42)
[2017-01-24] MEDS ORDERED: POTASSIUM CHLORIDE 25 MEQ EFFERVESCENT TAB PO ONE (08:45)
[2017-01-24] MEDS: MAGNESIUM SULFATE 1 GM PREMIX 100 ML IV SCH (09:52)
--- NOTE | 2017-01-24 12:29 | HHI.PR ---
Subjective Remarks The patient was sitting in a chair. She wanted to go back to bed. She says she has been having diarrhea whenever she eats. She had no other acute complaints. Discussed with nursing. Objective Vitals Vital Signs Date Time Temp Pulse Resp B/P (MAP) Pulse Ox O2 Delivery O2 Flow Rate FiO2 01/24/17 08:00 97.8 87 16 154/64 (94) 98 01/24/17 04:58 97.6 84 16 150/68 (95) 98 01/24/17 04:58 Room Air 01/23/17 23:50 Room Air 01/23/17 23:50 97.7 58 16 151/70 (97) 99 01/23/17 20:10 99 01/23/17 19:43 98.2 81 16 160/88 (112) 97 01/23/17 19:43 Room Air 01/23/17 16:02 98.1 73 18 129/60 (83) 100 I/O 01/23/17 01/23/17 01/23/17 01/24/17 01/24/17 01/24/17 07:00 15:00 23:00 07:00 15:00 23:00 Intake Total 240 ml 380 ml 200 ml Output Total 475 ml Balance 240 ml 380 ml -275 ml Intake Oral 240 ml 380 ml 200 ml Output Urine Total 475 ml # Voids 3 3 # Bowel Movements 1 0 1 Result Diagram: 01/24/17 0619 01/24/17 0619 Imaging Last Impressions Head CT 01/22/17 0000 Signed Impressions: Service Date/Time: Sunday, January 22, 2017 18:28 - CONCLUSION: Interval development of bilateral subdural hygromas. Maximal transverse width on the right of 1.4 cm, and the left 1.4 cm. Yasir Berry MD Abdomen/Pelvis CT 01/19/17 1107 Signed Impressions: Service Date/Time: January 12:54 - CONCLUSION: 1. 10 mm intermediate density nodule within the lower pole the right kidney which could represent a complex cyst or small solid lesion. Ultrasound or MRI with contrast may be helpful for further characterization of this indeterminate lesion. 2. Scattered tiny bilateral renal cysts. 3. Uncomplicated colonic diverticulosis. 4. Prominence of the extrahepatic biliary system which may be related to reservoir phenomenon status post cholecystectomy. 5. Coronary artery calcifications. 6. Mild degenerative changes throughout the thoracolumbar spine. Abdiel Lerma MD Renal Ultrasound 01/19/17 0000 Signed Impressions: Service Date/Time: January 16:07 - CONCLUSION: 1. The lesion identified by CT corresponds to an 8 mm cyst in the lower pole of the right kidney. 2. No hydronephrotic changes. Arvin Moreno MD Objective Remarks GENERAL: NAD, A&Ox3 HEAD: Normocephalic. Tender to palpation of scalp. NECK: Supple, trachea midline. No lymphadenopathy. EYES: No scleral icterus. No injection or drainage. CARDIOVASCULAR: Tachycardia and regular rhythm without murmurs, gallops, or rubs. RESPIRATORY: Breath sounds equal bilaterally. No accessory muscle use. GASTROINTESTINAL: Abdomen soft, non-tender, nondistended. MUSCULOSKELETAL: No cyanosis, or edema. SKIN: Warm and dry. NEURO: No focal neurological deficitis. Medications and IVs Current Medications Medications (Trade) Dose Ordered Sig/Jordan Route Start Time Stop Time Status Last Admin (NS Flush) 2 ml UNSCH PRN IV FLUSH 01/19/17 15:15 (NS Flush) 2 ml BID IV FLUSH 01/19/17 21:00 01/24/17 07:27 (Narcan Inj) 0.4 mg UNSCH PRN IV PUSH 01/19/17 15:15 (Lara-Colace) 1 tab BID PO 01/19/17 21:00 01/24/17 08:41 (Milk Of Magnesia Liq) 30 ml Q12H PRN PO 01/19/17 15:15 (Senokot) 17.2 mg Q12H PRN PO 01/19/17 15:15 (Dulcolax Supp) 10 mg DAILY PRN RECTAL 01/19/17 15:15 (Lipitor) 40 mg HS PO 01/19/17 21:00 01/23/17 22:43 (Aricept) 5 mg DAILY PO 01/20/17 09:00 01/24/17 08:42 (Reglan) 10 mg QID PO 01/19/17 18:00 01/24/17 08:42 (Carafate Liq) 1 gm TIDAC PO 01/19/17 17:00 01/24/17 08:42 (Glucotrol) 5 mg BID@0800,1700 PO 01/19/17 17:15 Future Hold (Protonix) 40 mg DAILY PO 01/20/17 09:00 01/24/17 08:42 (NovoLIN R SUPPLEMENTAL SCALE) 1 ACHS SLIDING SCALE SQ 01/19/17 17:00 01/22/17 12:00 (D50w (Vial) Inj) 50 ml UNSCH PRN IV PUSH 01/19/17 16:00 01/20/17 07:42 (Glucagon Inj) 1 mg UNSCH PRN OTHER 01/19/17 16:00 (Hydrodiuril) 25 mg DAILY PO 01/20/17 09:00 01/24/17 08:42 (Macrobid) 100 mg BIDPC PO 01/21/17 18:00 01/24/17 08:41 (Lactinex) 1 tab TID PO 01/21/17 18:00 01/24/17 08:42 (Mag-Al Plus Susp Liq) 30 ml Q6H PRN PO 01/23/17 14:15 01/23/17 22:55 (Lopressor) 50 mg Q12HR PO 01/24/17 21:00 UNV A/P Problem List: (1) UTI (urinary tract infection) ICD Code: N39.0 - Urinary tract infection, site not specified Status: Acute (2) Elevated troponin ICD Code: R74.8 - Abnormal levels of other serum enzymes Status: Acute (3) Diabetes ICD Code: E11.9 - Type 2 diabetes mellitus without complications Status: Chronic (4) Anemia ICD Code: D64.9 - Anemia, unspecified Status: Acute (5) Possible NPH (6) Abdominal pain ICD Code: R10.9 - Unspecified abdominal pain Assessment and Plan 81-year-old female admitted secondary to UTI and anemia now with SVT. The acute leukocytosis may be secondary to starting nitrofurantoin, her UTI was resistant to other treatments so this may be reactive to first 24 hours of actual treatment. Follow CBC. Consider discharge if she has a downward trend in her white blood cell count. Continue to monitor on telemetry to ensure no recurrence of SVT. SVT Still with tachycardia at times. - Continue metoprolol. Increase dose to 50 mg BID. - Follow on telemetry. - cardiology to see pt 01/24. Urinary tract infection Leukocytosis resolved. - Nitrofurantoin. - Probiotics. Troponin elevation May be related to recurrent SVT. - cardiology following. Diabetes mellitus type 2 Well controlled. - Follow blood sugars. - Insulin sliding scale. - Diabetic diet. Anemia Related to chronic disease. Stable. - follow CBC. Possible normal pressure hydrocephalus Status post lumbar drain and removal. - Conservative therapy. - outpt NS follow-up. Head trauma CT showed subdural hygromas. Neurosurgery consult appreciated. - outpt followup. Hypokalemia/ Hypomagnesemia Likely s/t decreased PO intake and diarrhea. - replete and monitor. - hold bowel regimen. PPx: SCDs Discharge Planning Awaiting cards re-eval. Anticipate d/c to SNF in AM. Problem Qualifiers (1) UTI (urinary tract infection): Qualified Codes: N30.00 - Acute cystitis without hematuria (2) Anemia: Qualified Codes: D64.9 - Anemia, unspecified Daryl Moffett DO Jan 24, 2017 12:29
[2017-01-24] MEDS ORDERED: METOPROLOL TARTRATE 25 MG TAB PO ONE (12:30)
--- NOTE | 2017-01-24 14:24 | PD.CONS ---
HPI Service NS Consult Requested By Dr Antonina Loza Reason for Consult fall with subdural hematoma Primary Care Physician No Primary Care Physician History of Present Illness This is a 81 years old female with history of dementia, recent admission for UTI with Escherichia coli, who presented today to the ED complaining of epigastric pain 6-7 out of 10, with history of nausea and vomiting, on and off chest pain. In general patient is poor historian, only mentioning of lower abdominal pain related to UTI. Apparently she fell down, Reports headaches. in addition, her hemoglobin dropped from 11.3 to 8.1, . She denies, nausea vomiting , no hematochezia or hematemesis, Her heart rate was 140-150, but no chest pain at this time. Se has history of diabetes mellitus and hypertension, as well as NPH. Patient denied dizziness or lightheaded. Using the brain show bilateral subdural hygromas. Neurosurgical consultation was requested Review of Systems Cannot be obtained to rule out reviewed to her history of dementia ROS Limitations: Clinical Condition, Altered Mental Status Past Family Social History Allergies: Coded Allergies: ciprofloxacin (Verified Allergy, Severe, RASH, VOMITING, 01/19/17) Past Medical History Breast CA History of SVT 2 episodes in 2017 History of H pylori gastritis/peptic ulcer Hypertension Past Surgical History History of appendectomy cholecystectomy and breast reduction Active Ordered Medications Current Medications Ondansetron HCl (Zofran Inj) 4 mg ONCE ONCE IVP Last administered on 11:28; Start 01/19/17 at 11:15; Stop 01/19/17 at 11:16; Status DC Sodium Chloride 1,000 ml @ 1,000 mls/hr Q1H IV Last administered on 11:28; Start 01/19/17 at 11:07; Stop 01/19/17 at 12:06; Status DC Sodium Chloride (NS Flush) 2 ml UNSCH PRN IV FLUSH FLUSH AFTER USING IV ACCESS ; Start 01/19/17 at 11:15; Stop 01/19/17 at 15:48; Status DC Iohexol (Omnipaque 350 Inj) 85 ml STK-MED ONCE IVCONTRAST Last administered on 01/19/17 10:24; Start 01/19/17 at 10:24; Stop 01/19/17 at 13:20; Status DC Ceftriaxone Sodium 1000 mg/ Sodium Chloride 100 ml @ 200 mls/hr Q24H IV Last administered on 01/20/17 16:57; Start 01/19/17 at 17:00; Stop 01/21/17 at 16 :23; Status DC Sodium Chloride (NS Flush) 2 ml UNSCH PRN IV FLUSH FLUSH AFTER USING IV ACCESS ; Start 01/19/17 at 15:15 Sodium Chloride (NS Flush) 2 ml BID IV FLUSH Last administered on 01/24/17 07 :27; Start 01/19/17 at 21:00 Heparin Sodium (Porcine) (Heparin Inj) 5,000 units Q8H SQ Last administered on 01/19/17 18:00; Start 01/19/17 at 16:00; Stop 01/19/17 at 19:07; Status DC Naloxone HCl (Narcan Inj) 0.4 mg UNSCH PRN IV PUSH SEE LABEL COMMENTS; Start 01/19/17 at 15:15 Senna/Docusate Sodium (Lara-Colace) 1 tab BID PO Last administered on 08:41; Start 01/19/17 at 21:00; Stop 01/24/17 at 12:23; Status DC Magnesium Hydroxide (Milk Of Magnesia Liq) 30 ml Q12H PRN PO Mild constipation ; Start 01/19/17 at 15:15 Sennosides (Senokot) 17.2 mg Q12H PRN PO Moderate constipation; Start at 15:15 Bisacodyl (Dulcolax Supp) 10 mg DAILY PRN RECTAL SEVERE CONSITIPATION; Start 01/19/17 at 15:15 Lactulose (Lactulose Liq) 30 ml DAILY PRN PO SEVERE CONSITIPATION; Start 01/19 at 15:15; Stop 01/19/17 at 16:04; Status DC Labetalol HCl (Trandate Inj) 10 mg ONCE ONCE IV PUSH ; Start 01/19/17 at 16:00 ; Stop 01/19/17 at 16:04; Status DC Atorvastatin Calcium (Lipitor) 40 mg HS PO Last administered on 01/23/17 22: 43; Start 01/19/17 at 21:00 Donepezil HCl (Aricept) 5 mg DAILY PO Last administered on 01/24/17 08:42; Start 01/20/17 at 09:00 Metoclopramide HCl (Reglan) 10 mg QID PO Last administered on 01/24/17 12:44 ; Start 01/19/17 at 18:00 Sucralfate (Carafate Liq) 1 gm TIDAC PO Last administered on 01/24/17 12:43; Start 01/19/17 at 17:00 Glipizide (Glucotrol) 5 mg BID@0800,1700 PO ; Start 01/19/17 at 17:15; Status Future Hold Non-Formulary Medication 1 tab DAILY PO ; Start 01/20/17 at 09:00; Status UNV Pantoprazole Sodium (Protonix) 40 mg DAILY PO Last administered on 01/24/17 08:42; Start 01/20/17 at 09:00 Insulin Human Regular (NovoLIN R SUPPLEMENTAL SCALE) 1 ACHS SLIDING SCALE SQ Last administered on 01/24/17 13:18; Start 01/19/17 at 17:00 Dextrose (D50w (Vial) Inj) 50 ml UNSCH PRN IV PUSH HYPOGLYCEMIA-SEE COMMENTS Last administered on 01/20/17 07:42; Start 01/19/17 at 16:00 Glucagon (Glucagon Inj) 1 mg UNSCH PRN OTHER HYPOGLYCEMIA-SEE COMMENTS; Start 01/19/17 at 16:00 Diltiazem HCl (Cardizem Inj) 10 mg STAT ONCE IV ; Start 01/19/17 at 16:15; Stop 01/19/17 at 16:15; Status DC Labetalol HCl (Trandate Inj) 10 mg ONCE ONCE IV PUSH Last administered on 16:15; Start 01/19/17 at 16:15; Stop 01/19/17 at 16:16; Status DC Lisinopril (Prinivil) 20 mg DAILY PO Last administered on 01/21/17 08:51; Start 01/20/17 at 09:00; Stop 01/21/17 at 11:41; Status DC Hydrochlorothiazide (Hydrodiuril) 25 mg DAILY PO Last administered on 08:42; Start 01/20/17 at 09:00 Potassium Chloride (KCl) 30 meq Q12HR PO Last administered on 01/21/17 08:50 ; Start 01/20/17 at 10:15; Stop 01/21/17 at 09:01; Status DC Magnesium Sulfate/ Dextrose 100 ml @ 100 mls/hr ONCE ONCE IV Last administered on 01/20/17 13:50; Start 01/20/17 at 12:30; Stop 01/20/17 at 13 :29; Status DC Diphenhydramine HCl (Benadryl) 25 mg ONCE ONCE PO Last administered on 23:33; Start 01/20/17 at 23:30; Stop 01/20/17 at 23:31; Status DC Diphenhydramine HCl (Benadryl Inj) 25 mg ONCE ONCE IV PUSH Last administered on 01/21/17 04:43; Start 01/21/17 at 04:15; Stop 01/21/17 at 04:18; Status DC Diltiazem HCl (Cardizem Cd) 120 mg ONCE ONCE PO Last administered on 12:25; Start 01/21/17 at 12:00; Stop 01/21/17 at 12:01; Status DC Diltiazem HCl (Cardizem Cd) 120 mg DAILY PO ; Start 01/22/17 at 09:00; Stop at 09:00; Status DC Metoprolol Tartrate (Lopressor) 25 mg ONCE ONCE PO Last administered on 16:52; Start 01/21/17 at 14:30; Stop 01/21/17 at 14:33; Status DC Metoprolol Tartrate (Lopressor) 25 mg Q12HR PO Last administered on 01/24/17 08:41; Start 01/22/17 at 09:00; Stop 01/24/17 at 12:22; Status DC Nitrofurantoin Macrocrystals (Macrobid) 100 mg BIDPC PO Last administered on 08:41; Start 01/21/17 at 18:00 Lactobacillus Acidophilus (Lactinex) 1 tab TID PO Last administered on 12:44; Start 01/21/17 at 18:00 Al Hydrox/Mg Hydrox/Simethicone (Mag-Al Plus Susp Liq) 30 ml Q6H PRN PO Dyspepsia Last administered on 01/23/17 22:55; Start 01/23/17 at 14:15 Potassium Bicarb/ Potassium Chloride (K-Lyte Cl Eff) 25 meq ONCE ONCE PO Last administered on 01/23/17 17:25; Start 01/23/17 at 17:00; Stop 01/23/17 at 17:01; Status DC Potassium Bicarb/ Potassium Chloride (K-Lyte Cl Eff) 50 meq ONCE ONCE PO Last administered on 01/24/17 09:51; Start 01/24/17 at 08:45; Stop 01/24/17 at 08:46; Status DC Magnesium Sulfate/ Dextrose 100 ml @ 100 mls/hr Q1H IV Last administered on 09:52; Start 01/24/17 at 09:00; Stop 01/24/17 at 10:59; Status DC Metoprolol Tartrate (Lopressor) 50 mg Q12HR PO ; Start 01/24/17 at 21:00 Metoprolol Tartrate (Lopressor) 25 mg ONCE ONCE PO Last administered on 13:08; Start 01/24/17 at 12:30; Stop 01/24/17 at 12:32; Status DC Family History Family history was Reviewed and noncontributory to the symptoms of this admission Social History Denied tobacco alcohol or illicit drug abuse Physical Exam Vital Signs Vital Signs Date Time Temp Pulse Resp B/P (MAP) Pulse Ox O2 Delivery O2 Flow Rate FiO2 01/24/17 12:00 97.4 71 16 150/70 (96) 98 01/24/17 08:00 97.8 87 16 154/64 (94) 98 01/24/17 04:58 97.6 84 16 150/68 (95) 98 01/24/17 04:58 Room Air 01/23/17 23:50 Room Air 01/23/17 23:50 97.7 58 16 151/70 (97) 99 01/23/17 20:10 99 01/23/17 19:43 98.2 81 16 160/88 (112) 97 01/23/17 19:43 Room Air 01/23/17 16:02 98.1 73 18 129/60 (83) 100 Physical Exam Laboratory Laboratory Tests Test 01/24/17 06:19 White Blood Count 9.2 Red Blood Count 3.69 Hemoglobin 11.5 Hematocrit 34.1 Mean Corpuscular Volume 92.3 Mean Corpuscular Hemoglobin 31.3 Mean Corpuscular Hemoglobin Concent 33.9 Red Cell Distribution Width 14.6 Platelet Count 225 Mean Platelet Volume 8.0 Blood Urea Nitrogen 12 Creatinine 0.36 Random Glucose 139 Calcium Level 8.6 Magnesium Level 1.4 Sodium Level 133 Potassium Level 3.1 Chloride Level 97 Carbon Dioxide Level 27.6 Anion Gap 8 Estimat Glomerular Filtration Rate 173 Date/Time Source Procedure Growth Status 01/19/17 11:20 Urine Clean Catch Urine Culture - Final Enterococcus Raffinosus Complete Result Diagram: 01/24/1761801/24/17618 Assessment and Plan Assessment and Plan Caprini VTE Risk Assessment: Mod/High Risk (score >= 2) Caprini Risk Assessment Model Point Value = 1 Point Value = 2 Point Value = 3 Point Value = 5 Age 41-60 Minor surgery BMI > 25 kg/m2 Swollen legs Varicose veins or History of unexplained or recurrent spontaneous Oral contraceptives or hormone replacement Sepsis (< 1 month) Serious lung disease, including pneumonia (< 1 month) Abnormal pulmonary function Acute myocardial infarction Congestive heart failure (< 1 month) History of inflammatory bowel disease Medical patient at bed rest Age 61-74 Arthroscopic surgery Major open surgery (> 45 min) Laparoscopic surgery (> 45 min) Malignancy Confined to bed (> 72 hours) Immobilizing plaster cast Central venous access Age >= 75 History of VTE Family history of VTE Factor V Leiden Prothrombin [id number] Lupus anticoagulant Anticardiolipin antibodies Elevated serum homocysteine Heparin-induced thrombocytopenia Other congenital or acquired thrombophilia Stroke (< 1 month) Elective arthroplasty Hip, pelvis, or leg fracture Acute spinal cord injury (< 1 month) Prophylaxis Regimen Total Risk Factor Score Risk Level Prophylaxis Regimen 0-1 Low Early ambulation 2 Moderate Order ONE of the following: *Sequential Compression Device (SCD) *Heparin 5000 units SQ BID 3-4 Higher Order ONE of the following medications: *Heparin 5000 units SQ TID *Enoxaparin/Lovenox 40 mg SQ daily (WT < 150 kg, CrCl > 30 mL/min) *Enoxaparin/Lovenox 30 mg SQ daily (WT < 150 kg, CrCl > 10-29 mL/min) *Enoxaparin/Lovenox 30 mg SQ BID (WT < 150 kg, CrCl > 30 mL/min) AND/OR *Sequential Compression Device (SCD) 5 or more Highest Order ONE of the following medications: *Heparin 5000 units SQ TID (Preferred with Epidurals) *Enoxaparin/Lovenox 40 mg SQ daily (WT < 150 kg, CrCl > 30 mL/min) *Enoxaparin/Lovenox 30 mg SQ daily (WT < 150 kg, CrCl > 10-29 mL/min) *Enoxaparin/Lovenox 30 mg SQ BID (WT < 150 kg, CrCl > 30 mL/min) AND *Sequential Compression Device (SCD) Attending Statement Fall, TBI. neuro checks in a serial fashion. Nonoperative management NPH. She improved with a trial of drainage viia a lumbar spinal drain, with PT and neurology assessment. She will benefit by surgery for placement of a RAIL SWITCH OPERATOR shunt once that she is medically stable Pulmonary.aggressive pulmonary toilette, nasotracheal suction, and breathing treatments with nebulizers. Physical therapy evaluation Intractable diarrhea. This needs further workup to rule out a C diff infection Renal. monitor closely urine output, BUN and creatinine Endocrine. Monitor serial Acu checks and SSI as needed in detail ID rule out record rent UTI Protonix for stress ulcer prophylaxis Octavio nolasco and SCD's for DVT prophylaxis. Jose L Taveras MD Jan 24, 2017 14:24
[2017-01-24] MEDS ORDERED: POTASSIUM CHLORIDE 10 MEQ CAP PO ONE (15:30)
--- NOTE | 2017-01-24 17:12 | PD.CARD.PN ---
Subjective Subjective Remarks Pt reports episodes of palpitations Objective Medications Current Medications Medications (Trade) Dose Ordered Sig/Jordan Route Start Time Stop Time Status Last Admin (NS Flush) 2 ml UNSCH PRN IV FLUSH 01/19/17 15:15 (NS Flush) 2 ml BID IV FLUSH 01/19/17 21:00 01/24/17 07:27 (Narcan Inj) 0.4 mg UNSCH PRN IV PUSH 01/19/17 15:15 (Milk Of Magnesia Liq) 30 ml Q12H PRN PO 01/19/17 15:15 (Senokot) 17.2 mg Q12H PRN PO 01/19/17 15:15 (Dulcolax Supp) 10 mg DAILY PRN RECTAL 01/19/17 15:15 (Lipitor) 40 mg HS PO 01/19/17 21:00 01/23/17 22:43 (Aricept) 5 mg DAILY PO 01/20/17 09:00 01/24/17 08:42 (Reglan) 10 mg QID PO 01/19/17 18:00 01/24/17 12:44 (Carafate Liq) 1 gm TIDAC PO 01/19/17 17:00 01/24/17 12:43 (Glucotrol) 5 mg BID@0800,1700 PO 01/19/17 17:15 Future Hold (Protonix) 40 mg DAILY PO 01/20/17 09:00 01/24/17 08:42 (NovoLIN R SUPPLEMENTAL SCALE) 1 ACHS SLIDING SCALE SQ 01/19/17 17:00 01/24/17 13:18 (D50w (Vial) Inj) 50 ml UNSCH PRN IV PUSH 01/19/17 16:00 01/20/17 07:42 (Glucagon Inj) 1 mg UNSCH PRN OTHER 01/19/17 16:00 (Hydrodiuril) 25 mg DAILY PO 01/20/17 09:00 01/24/17 08:42 (Macrobid) 100 mg BIDPC PO 01/21/17 18:00 01/24/17 08:41 (Lactinex) 1 tab TID PO 01/21/17 18:00 01/24/17 12:44 (Mag-Al Plus Susp Liq) 30 ml Q6H PRN PO 01/23/17 14:15 01/23/17 22:55 (Lopressor) 50 mg Q12HR PO 01/24/17 21:00 Vital Signs / I&O Vital Signs Date Time Temp Pulse Resp B/P (MAP) Pulse Ox O2 Delivery O2 Flow Rate FiO2 01/24/17 17:00 97.3 68 18 172/77 (108) 01/24/17 12:00 97.4 71 16 150/70 (96) 98 01/24/17 08:00 97.8 87 16 154/64 (94) 98 01/24/17 04:58 97.6 84 16 150/68 (95) 98 01/24/17 04:58 Room Air 01/23/17 23:50 Room Air 01/23/17 23:50 97.7 58 16 151/70 (97) 99 01/23/17 20:10 99 01/23/17 19:43 98.2 81 16 160/88 (112) 97 01/23/17 19:43 Room Air I/O 01/23/17 01/23/17 01/23/17 01/24/17 01/24/17 01/24/17 07:00 15:00 23:00 07:00 15:00 23:00 Intake Total 240 ml 380 ml 200 ml Output Total 475 ml Balance 240 ml 380 ml -275 ml Intake Oral 240 ml 380 ml 200 ml Output Urine Total 475 ml # Voids 3 3 # Bowel Movements 1 0 1 Physical Exam GENERAL: Well developed, well nourished. No acute distress. HEENT: Jugular venous pressure is normal. CHEST: Lungs clear to auscultation bilaterally. Unlabored respiratory effort. CARDIAC: Regular rate and rhythm without S3, S4, or murmur. ABDOMEN: Soft, nontender, EXTREMITIES: No clubbing, cyanosis, or edema. Laboratory Laboratory Tests Test 01/24/17 06:19 White Blood Count 9.2 TH/MM3 Red Blood Count 3.69 MIL/MM3 Hemoglobin 11.5 GM/DL Hematocrit 34.1 % Mean Corpuscular Volume 92.3 FL Mean Corpuscular Hemoglobin 31.3 PG Mean Corpuscular Hemoglobin Concent 33.9 % Red Cell Distribution Width 14.6 % Platelet Count 225 TH/MM3 Mean Platelet Volume 8.0 FL Blood Urea Nitrogen 12 MG/DL Creatinine 0.36 MG/DL Random Glucose 139 MG/DL Calcium Level 8.6 MG/DL Magnesium Level 1.4 MG/DL Sodium Level 133 MEQ/L Potassium Level 3.1 MEQ/L Chloride Level 97 MEQ/L Carbon Dioxide Level 27.6 MEQ/L Anion Gap 8 MEQ/L Estimat Glomerular Filtration Rate 173 ML/MIN Assessment and Plan Assessment and Plan SVT on tele to 150's, likely impart related to diarrhea, electrolytes, co morbid conditions -agree with increase in metoprolol -pt wants medical management and declines invasive procedures (EPS) diarrhea- UTI- NPH-neuro surg Ivanna Blanc MD Jan 24, 2017 17:12
[2017-01-24] MEDS: ATORVASTATIN 40 MG TAB PO SCH (20:48)
[2017-01-24] MEDS: METOPROLOL TARTRATE 50 MG TAB PO SCH (20:49)
[2017-01-25] VITALS (7 sets, daily range): BP systolic 140–171; BP diastolic 65–71; PULSE 50–89; RESP 16–20; TEMP 97.4–98.5; O2SAT 98–100
[2017-01-25 06:12] LABS: BICARBONATE 26.7 MEQ/L (21.0-32.0); MAGNESIUM 1.7 MG/DL (1.5-2.5); POTASSIUM 3.2 MEQ/L (3.5-5.1)
[2017-01-25] MEDS: SODIUM CHLORIDE 0.9% FLUSH 10 ML FLUSH IV FLUSH SCH ×2 (07:52→21:00)
[2017-01-25] MEDS: INSULIN NovoLIN REGULAR SUPPLEMENTAL SCALE SQ SCH ×4 (07:52→21:00)
[2017-01-25] MEDS: DONEPEZIL HCL 5 MG TAB PO SCH (08:28)
[2017-01-25] MEDS: METOCLOPRAMIDE HCL 10 MG TAB PO SCH ×4 (08:28→22:27)
[2017-01-25] MEDS: NITROFURANTOIN MONOHYD MACROCR 100 MG CAP PO SCH ×2 (08:28→17:43)
[2017-01-25] MEDS: PANTOPRAZOLE SOD 40 MG DELAYED RELEASE TAB PO SCH (08:28)
[2017-01-25] MEDS: SUCRALFATE 1 GM/10 ML CUP PO SCH ×3 (08:28→16:00)
[2017-01-25] MEDS: LACTOBACILLUS ACIDOPHILUS TAB PO SCH ×3 (08:28→17:42)
[2017-01-25] MEDS: HYDROCHLOROTHIAZIDE 25 MG TAB PO SCH (08:29)
[2017-01-25] MEDS: METOPROLOL TARTRATE 50 MG TAB PO SCH ×2 (08:29→22:27)
[2017-01-25] MEDS ORDERED: MAGNESIUM SULFATE 1 GM PREMIX 100 ML IV ONE (09:00)
[2017-01-25] MEDS ORDERED: POTASSIUM CHLORIDE 25 MEQ EFFERVESCENT TAB PO ONE (09:00)
[2017-01-25] MEDS ORDERED: METO-309 PO (09:15)
[2017-01-25] MEDS ORDERED: NITR100C4 PO (09:15)
[2017-01-25] MEDS ORDERED: LISI-515 PO (09:15)
[2017-01-25] MEDS ORDERED: GETGO ROLLING W1 MI1 (09:15)
--- NOTE | 2017-01-25 09:19 | HHI.DCPOC ---
Discharge Care Plan Diagnosis: (1) Hypertension (2) SVT (supraventricular tachycardia) (3) Possible NPH (4) UTI (urinary tract infection) Goals to Promote Your Health * To prevent worsening of your condition and complications * To maintain your health at the optimal level Directions to Meet Your Goals Take your medications as prescribed Follow your dietary instruction Follow activity as directed Keep your appointments as scheduled Take your immunizations and boosters as scheduled If your symptoms worsen call your PCP, if no PCP go to Urgent Care Center or Emergency Room Smoking is Dangerous to Your Health. Avoid second hand smoke Call the 24-hour hour crisis hotline for domestic abuse at Daryl Moffett DO Jan 25, 2017 09:19
[2017-01-25] MEDS ORDERED: POTA-163 PO (09:23)
--- NOTE | 2017-01-25 09:34 | HHI.DS ---
Discharge Summary Admission Date Jan 19, 2017 at 16:09 Discharge Date: Jan 26, 2017 Admitting Diagnosis UTI, anemia (1) UTI (urinary tract infection) ICD Code: N39.0 - Urinary tract infection, site not specified Status: Acute (2) Elevated troponin ICD Code: R74.8 - Abnormal levels of other serum enzymes Status: Acute (3) Diabetes ICD Code: E11.9 - Type 2 diabetes mellitus without complications Status: Chronic (4) Anemia ICD Code: D64.9 - Anemia, unspecified Status: Acute (5) Possible NPH (6) Abdominal pain ICD Code: R10.9 - Unspecified abdominal pain (7) SVT (supraventricular tachycardia) ICD Code: I47.1 - Supraventricular tachycardia Diagnosis: Principal (8) Hypertension ICD Code: I10 - Essential (primary) hypertension Status: Chronic Procedures None Brief History - From Admission 81 years old female with history of recent admission for UTI with Escherichia coli, presented today to the ED complaining of epigastric pain 6-7 out of 10, along with history of nausea and vomiting, on and off chest pain. In general patient is poor historian, from the history I got from ED there was only mentioning of lower abdominal pain related to UTI and a drop in hemoglobin been from 11.3-8.1, however patient did mention epigastric pain, nausea vomiting, no hematochezia or hematemesis, I also found her heart rate in the 140-150, but no chest pain at this time, patient has history of diabetes mellitus and hypertension. She doesn't have dysuria at this time, she was discharged on by mouth antibiotic. Patient denied dizziness or lightheaded CBC/BMP: 01/24/17 0619 01/25/17 0415 Significant Findings Laboratory Tests Test 01/23/17 12:00 01/24/17 06:19 01/25/17 04:15 White Blood Count 11.9 TH/MM3 (4.0-11.0) Red Blood Count 3.78 MIL/MM3 (4.00-5.30) 3.69 MIL/MM3 (4.00-5.30) Neutrophils (%) (Auto) 88.0 % (16.0-70.0) Lymphocytes (%) (Auto) 7.4 % (9.0-44.0) Neutrophils # (Auto) 10.4 TH/MM3 (1.8-7.7) Lymphocytes # (Auto) 0.9 TH/MM3 (1.0-4.8) Random Glucose 140 MG/DL (74-106) 139 MG/DL (74-106) 132 MG/DL (74-106) Sodium Level 133 MEQ/L (136-145) 133 MEQ/L (136-145) 133 MEQ/L (136-145) Potassium Level 3.4 MEQ/L (3.5-5.1) 3.1 MEQ/L (3.5-5.1) 3.2 MEQ/L (3.5-5.1) Hemoglobin 11.5 GM/DL (11.6-15.3) Hematocrit 34.1 % (35.0-46.0) Creatinine 0.36 MG/DL (0.50-1.00) 0.40 MG/DL (0.50-1.00) Magnesium Level 1.4 MG/DL (1.5-2.5) Chloride Level 97 MEQ/L (98-107) 97 MEQ/L (98-107) Imaging Last Impressions Head CT 01/22/17 0000 Signed Impressions: Service Date/Time: Sunday, January 22, 2017 18:28 - CONCLUSION: Interval development of bilateral subdural hygromas. Maximal transverse width on the right of 1.4 cm, and the left 1.4 cm. Yasir Berry MD Abdomen/Pelvis CT 01/19/17 1107 Signed Impressions: Service Date/Time: January 12:54 - CONCLUSION: 1. 10 mm intermediate density nodule within the lower pole the right kidney which could represent a complex cyst or small solid lesion. Ultrasound or MRI with contrast may be helpful for further characterization of this indeterminate lesion. 2. Scattered tiny bilateral renal cysts. 3. Uncomplicated colonic diverticulosis. 4. Prominence of the extrahepatic biliary system which may be related to reservoir phenomenon status post cholecystectomy. 5. Coronary artery calcifications. 6. Mild degenerative changes throughout the thoracolumbar spine. Abdiel Lerma MD Renal Ultrasound 01/19/17 0000 Signed Impressions: Service Date/Time: January 16:07 - CONCLUSION: 1. The lesion identified by CT corresponds to an 8 mm cyst in the lower pole of the right kidney. 2. No hydronephrotic changes. Arvin Moreno MD PE at Discharge GENERAL: NAD, A&Ox3 HEAD: Normocephalic. Tender to palpation of scalp. NECK: Supple, trachea midline. No lymphadenopathy. EYES: No scleral icterus. No injection or drainage. CARDIOVASCULAR: Regular rate and rhythm without murmurs, gallops, or rubs. RESPIRATORY: Breath sounds equal bilaterally. No accessory muscle use. GASTROINTESTINAL: Abdomen soft, non-tender, nondistended. MUSCULOSKELETAL: No cyanosis, or edema. SKIN: Warm and dry. NEURO: No focal neurological deficits. PSYCH: Mood and affect appropriate. Pt update on day of discharge The pt remained in the hospital as the SNF did not have a bed available 01/25. The pt was feeling well and looking forward to discharge. No acute complaints. Hospital Course SVT The pt was evaluated by cardiology. She was monitored on telemetry. She was started on Lopressor and her dose was increased to 50 mg BID. Her electrolytes were repleted. She will follow up with cardiology as an outpt. Urinary tract infection Urine culture grew enterococcus raffinosus. She will complete a course of nitrofurantoin. Troponin elevation Cardiology was consulted. She had a recent work up. She will follow up with cardiology as an outpt. Diabetes mellitus type 2 Well controlled. She was placed on an insulin sliding scale. She will resume her home regimen upon discharge. Normal pressure hydrocephalus/ Head trauma Status post recent lumbar drain and removal. The pt fell down and hit her head. CT showed subdural hygromas. Neurosurgery was consulted. She will follow up with neurosurgery as an outpt. She worked with physical therapy. She will be discharged to a [facility] facility. Hypokalemia/ Hypomagnesemia Her electrolytes were replaced. She will continue KCl supplementation upon discharge. She will have a BMP checked in 3-5 days. Hydrochlorothiazide was discontinued. She will continue to take lisinopril. Pt Condition on Discharge: Stable Discharge Disposition: Disch w/ Home Health Serv Discharge Time: > 30 minutes Discharge Instructions DIET: Follow Instructions for: Diabetic Diet Activities you can perform: Weight Bearing as Pam Follow up Referrals: Cardiology - [address] Guanaco Neurosurgery - 2 Weeks with Jose L Taveras MD PCP Follow-up - 1 Week New Orders: BASIC METABOLIC PROF - 3-5 Days New Medications: Lisinopril (Lisinopril) 20 Mg Tab 20 MG PO DAILY, #30 TAB 0 Refills Metoprolol Tartrate (Lopressor) 50 Mg Tab 75 MG PO BID for SVT, #90 TAB 0 Refills Potassium Chloride ER (Potassium Chloride ER) 20 Meq Tab 20 MEQ PO DAILY for Electrolyte Replacement, #7 TAB 0 Refills Walker Rolling/GetGo (Walker Rolling/GetGo) 1 Mis Mis EA .ROUTE DIRECTED, #1 Nitrofurantoin Monohydrate Macrocrystals (Nitrofurantoin Monohydrate Macrocrystals) 100 Mg Cap 100 MG PO BIDPC for Infection for 4 Days, CAP Continued Medications: Aspirin DR (Ecotrin Low Strength) 81 Mg Tabdr 81 MG PO DAILY, #30 TAB 0 Refills Atorvastatin (Lipitor) 40 Mg Tab 40 MG PO HS for Cholesterol Management, #30 TAB 0 Refills Bethanechol (Bethanechol) 25 Mg Tab 12.5 MG PO QID for Urinary Symptom Managemen, TAB 0 Refills Donepezil HCl (Aricept) 5 Mg Tablet 5 MG PO DAILY Glipizide ER (Glipizide ER) 10 Mg Malgorzata 10 MG PO DAILY for Blood Sugar Management, #30 TAB 0 Refills Take with breakfast or first main meal of the day Meclizine (Meclizine) 25 Mg Tab 25 MG PO TID PRN for VERTIGO, TAB 0 Refills Metoclopramide (Reglan) 10 Mg Tab 10 MG PO QID, #15 TAB 0 Refills Omeprazole (Omeprazole) 40 Mg Cap 40 MG PO DAILY, #30 CAP 0 Refills Ondansetron (Ondansetron) 4 Mg Tab Sucralfate Liq (Carafate Liq) 1 Gm/10 Ml Susp 1 GM PO TID for Duodenal ulcer, #900 ML 0 Refills on empty stomach Walker Rolling/GetGo (Walker Rolling/GetGo) 1 Mis Mis EA .ROUTE DIRECTED, #1 Walker Rolling/GetGo (Walker Rolling/GetGo) 1 Mis Mis EA .ROUTE DIRECTED, #1 Discontinued Medications: Lisinopril-Hctz (Lisinopril-Hctz) 20-25 Mg Tab 1 TAB PO DAILY for Blood Pressure Management, #30 TAB 0 Refills Tramadol (Tramadol) 50 Mg Tab 50 MG PO Q8H PRN for PAIN, TAB 0 Refills Daryl Moffett DO Jan 25, 2017 09:34
--- NOTE | 2017-01-25 11:43 | HHI.NSPN ---
(Maya Schreiber) Note Status Status: Progress Note (Maya Schreiber) Interval History Interval History This is a 81 years old female with history of dementia, recent admission for UTI with Escherichia coli, who presented today to the ED complaining of epigastric pain 6-7 out of 10, with history of nausea and vomiting, on and off chest pain. In general patient is poor historian, only mentioning of lower abdominal pain related to UTI. Apparently she fell down, Reports headaches. in addition, her hemoglobin dropped from 11.3 to 8.1, . She denies, nausea vomiting , no hematochezia or hematemesis, Her heart rate was 140-150, but no chest pain at this time. Se has history of diabetes mellitus and hypertension, as well as NPH. Patient denied dizziness or lightheaded. Using the brain show bilateral subdural hygromas. Neurosurgical consultation was requested 01/25: feeling well, pleasantly confused (Maya Schreiber) Labs, Micro, & Vital Signs Results Date Time Temp Pulse Resp B/P (MAP) Pulse Ox O2 Delivery O2 Flow Rate FiO2 01/25/17 10:06 Room Air 21 01/25/17 08:00 98.2 61 20 158/68 (98) 99 01/25/17 04:50 98.2 59 16 140/71 (94) 98 01/24/17 23:22 98.7 64 16 152/68 (96) 99 01/24/17 20:38 97.4 60 18 168/74 (105) 98 01/24/17 20:22 Room Air 01/24/17 19:58 55 01/24/17 19:35 97.4 87 16 144/83 (103) 97 01/24/17 17:00 97.3 68 18 172/77 (108) 01/24/17 12:00 97.4 71 16 150/70 (96) 98 Constitutional Vital Signs Date Time Temp Pulse Resp B/P (MAP) Pulse Ox O2 Delivery O2 Flow Rate FiO2 01/25/17 10:06 Room Air 21 01/25/17 08:00 98.2 61 20 158/68 (98) 99 01/25/17 04:50 98.2 59 16 140/71 (94) 98 01/24/17 23:22 98.7 64 16 152/68 (96) 99 01/24/17 20:38 97.4 60 18 168/74 (105) 98 01/24/17 20:22 Room Air 01/24/17 19:58 55 01/24/17 19:35 97.4 87 16 144/83 (103) 97 01/24/17 17:00 97.3 68 18 172/77 (108) 01/24/17 12:00 97.4 71 16 150/70 (96) 98 (Maya Schreiber) Physical Exam Alert, resting comfortably in bed. Pleasantly confused. Motor: moves all four extremities well CN: pupis equal, facial motor symmetric Neck; soft, supple (Maya Schreiber) vesmaty is alert, confused, oriented to self. Cranial nerve examination demonstrates the pupils to be equal, round, and reactive to light. Extra-ocular movements are intact with normal convergence. Facial motor function appears normal and symmetrical. Face sensation, hearing, visual grubbs, and olfaction can not be assessed properly due to the patients condition. The patient has an intact corneal reflex and a gag reflex. Sternocleidomastoid and trapezius have normal and symmetrical strength. Other cranial nerves are intact. Neck is soft and supple. Cervical spine has a normal range of motion of the cervical spine without pain. There is no tenderness to palpation to the spinous processes or paraspinal muscles. Muscle testing reveals normal bulk and tone overall without rigidity, spasticity , fasciculations, or atrophy. Muscle strength is 5/5 in all muscle groups of both upper and lower extremities. Deep tendon reflexes are 1+ and symmetrical in the biceps, triceps, and brachioradialis, bilaterally, in the upper extremities. In the lower extremities , the patellar and Achilles are 1+, bilaterally. There is a bilateral plantar flexion response. Hoffmanns sign is negative. There is no clonus or other abnormal reflexes noted. Cerebellar examination is limited due to the patient condition, but no obvious deficits are noted. (Jose L Taveras MD) Medications Current Medications Current Medications Medications (Trade) Dose Ordered Sig/Jordan Route PRN Reason Start Time Stop Time Status Last Admin Dose Admin Sodium Chloride (NS Flush) 2 ml UNSCH PRN IV FLUSH FLUSH AFTER USING IV ACCESS 01/19/17 15:15 Sodium Chloride (NS Flush) 2 ml BID IV FLUSH 01/19/17 21:00 01/25/17 07:52 Naloxone HCl (Narcan Inj) 0.4 mg UNSCH PRN IV PUSH SEE LABEL COMMENTS 01/19/17 15:15 Magnesium Hydroxide (Milk Of Magnesia Liq) 30 ml Q12H PRN PO Mild constipation 01/19/17 15:15 Sennosides (Senokot) 17.2 mg Q12H PRN PO Moderate constipation 01/19/17 15:15 Bisacodyl (Dulcolax Supp) 10 mg DAILY PRN RECTAL SEVERE CONSITIPATION 01/19/17 15:15 Atorvastatin Calcium (Lipitor) 40 mg HS PO 01/19/17 21:00 01/24/17 20:48 Donepezil HCl (Aricept) 5 mg DAILY PO 01/20/17 09:00 01/25/17 08:28 Metoclopramide HCl (Reglan) 10 mg QID PO 01/19/17 18:00 01/25/17 08:28 Sucralfate (Carafate Liq) 1 gm TIDAC PO 01/19/17 17:00 01/25/17 11:18 Glipizide (Glucotrol) 5 mg BID@0800,1700 PO 01/19/17 17:15 Future Hold Pantoprazole Sodium (Protonix) 40 mg DAILY PO 01/20/17 09:00 01/25/17 08:28 Insulin Human Regular (NovoLIN R SUPPLEMENTAL SCALE) 1 ACHS SLIDING SCALE SQ 01/19/17 17:00 01/24/17 13:18 Dextrose (D50w (Vial) Inj) 50 ml UNSCH PRN IV PUSH HYPOGLYCEMIA-SEE COMMENTS 01/19/17 16:00 01/20/17 07:42 Glucagon (Glucagon Inj) 1 mg UNSCH PRN OTHER HYPOGLYCEMIA-SEE COMMENTS 01/19/17 16:00 Hydrochlorothiazide (Hydrodiuril) 25 mg DAILY PO 01/20/17 09:00 01/25/17 08:29 Nitrofurantoin Macrocrystals (Macrobid) 100 mg BIDPC PO 01/21/17 18:00 01/25/17 08:28 Lactobacillus Acidophilus (Lactinex) 1 tab TID PO 01/21/17 18:00 01/25/17 08:28 Al Hydrox/Mg Hydrox/Simethicone (Mag-Al Plus Susp Liq) 30 ml Q6H PRN PO Dyspepsia 01/23/17 14:15 01/23/17 22:55 Metoprolol Tartrate (Lopressor) 50 mg Q12HR PO 01/24/17 21:00 01/25/17 08:29 (Maya Schreiber) Plan Plan Remarks Fall, TBI. neuro checks in a serial fashion. Nonoperative management. repeat CT Head in a few week or if worsening neuro exam. NPH. She improved with a trial of drainage via a lumbar spinal drain, with PT and neurology assessment. She will benefit by surgery for placement of a PRESS OPERATOR shunt once that she is medically stable Pulmonary.aggressive pulmonary toilette, nasotracheal suction, and breathing treatments with nebulizers. Physical therapy evaluation Intractable diarrhea. This needs further workup to rule out a C diff infection Renal. monitor closely urine output, BUN and creatinine Endocrine. Monitor serial Acu checks and SSI as needed in detail ID rule out record rent UTI Protonix for stress ulcer prophylaxis Pacheco hose and SCD's for DVT prophylaxis. (Maya Schreiber) Attending Statement As above Neuro. Continue neuro checks Pulmonary.Continue pulmonary toilette, nasotracheal suction, and breathing treatments with nebulizers. Nutrition. Oral diet diarrhea workup. Derfer to medical Renal. Continue to monitor closely urine output, BUN and creatinine Diabetes mellitus. Continue to Monitor serial Acu checks and SSI as needed in detail ID Continue to monitor for signs of infection Continue Protonix for stress ulcer prophylaxis Continue pacheco hose and SCD's. Nonchemical FVT prophylaxis The exam, history, and the medical decision-making described in the above note were completed with the assistance of the mid-level provider. I reviewed and agree with the findings presented. I attest that I had a [id number] encounter with the patient on the same day, and personally performed and documented my assessment and findings in the medical record. (Jose L Taveras MD) Maya Schreiber Jan 25, 2017 11:43 Jose L Taveras MD Jan 26, 2017 11:37
--- NOTE | 2017-01-25 12:37 | HHI.FF ---
Face to Face Verification Diagnosis: (1) Possible NPH (2) Hypertension (3) SVT (supraventricular tachycardia) (4) Elevated troponin (5) UTI (urinary tract infection) Physical Therapy Order: Evaluate and Treat, Improve ambulation, Strength and gait training Home Health Nursing Order: Medical education Signs/symptoms of disease process Medication education-adverse effect Nursing assessment with vital signs I have seen patient Janina Matthew on 01/25/17. My clinical findings support the need for the requested home health care services because: Deconditioned w/ increased weakness Limited ability to care for self High risk of falls I certify that my clinical findings support that this patient is homebound because: Unsteady gait/balance Unsafe to leave home unassisted Daryl Moffett DO Jan 25, 2017 12:36
[2017-01-25] MEDS ORDERED: POTASSIUM CHLORIDE 10 MEQ CAP PO ONE (15:00)
[2017-01-25] MEDS: ATORVASTATIN 40 MG TAB PO SCH (22:26)
[2017-01-26 04:47] VITALS: BP 160/86; PULSE 69; RESP 16; TEMP 97.5; O2SAT 99
[2017-01-26 08:00] VITALS: BP 164/69; PULSE 74; RESP 20; TEMP 97.8; O2SAT 97
[2017-01-26] MEDS: INSULIN NovoLIN REGULAR SUPPLEMENTAL SCALE SQ SCH ×2 (08:00→12:00)
[2017-01-26] MEDS ORDERED: POTASSIUM CHLORIDE 20 MEQ CONTROLLED RELEASE TAB PO ONE (09:15)
--- NOTE | 2017-01-26 09:20 | HHI.PR ---
Subjective Remarks This note is for encounter date 01/25/17 The patient was resting comfortably and eager to go home. She said her diarrhea resolved. Discussed with nursing. Objective Vitals Vital Signs Date Time Temp Pulse Resp B/P (MAP) Pulse Ox O2 Delivery O2 Flow Rate FiO2 01/26/17 08:00 97.8 74 20 164/69 (100) 97 01/26/17 04:47 97.5 69 16 160/86 (110) 99 01/25/17 23:47 98.4 59 16 152/70 (97) 98 01/25/17 20:05 80 01/25/17 20:05 98.5 89 16 142/65 (90) 100 01/25/17 19:43 Room Air 01/25/17 16:00 97.5 63 20 167/70 (102) 99 01/25/17 12:00 97.4 53 20 171/70 (103) 100 01/25/17 10:06 Room Air 21 I/O 01/25/17 01/25/17 01/25/17 01/26/17 01/26/17 01/26/17 07:00 15:00 23:00 07:00 15:00 23:00 Intake Total 100 ml 240 ml 0 ml Balance 100 ml 240 ml 0 ml Intake Oral 100 ml 240 ml 0 ml # Voids 4 2 2 # Bowel Movements 0 0 1 Result Diagram: 01/24/17 0619 01/25/17 0415 Imaging Last Impressions Head CT 01/22/17 0000 Signed Impressions: Service Date/Time: Sunday, January 22, 2017 18:28 - CONCLUSION: Interval development of bilateral subdural hygromas. Maximal transverse width on the right of 1.4 cm, and the left 1.4 cm. Yasir Berry MD Abdomen/Pelvis CT 01/19/17 1107 Signed Impressions: Service Date/Time: January 12:54 - CONCLUSION: 1. 10 mm intermediate density nodule within the lower pole the right kidney which could represent a complex cyst or small solid lesion. Ultrasound or MRI with contrast may be helpful for further characterization of this indeterminate lesion. 2. Scattered tiny bilateral renal cysts. 3. Uncomplicated colonic diverticulosis. 4. Prominence of the extrahepatic biliary system which may be related to reservoir phenomenon status post cholecystectomy. 5. Coronary artery calcifications. 6. Mild degenerative changes throughout the thoracolumbar spine. Abdiel Lerma MD Renal Ultrasound 01/19/17 0000 Signed Impressions: Service Date/Time: January 16:07 - CONCLUSION: 1. The lesion identified by CT corresponds to an 8 mm cyst in the lower pole of the right kidney. 2. No hydronephrotic changes. Arvin Moreno MD Objective Remarks GENERAL: NAD, A&Ox3 HEAD: Normocephalic. Tender to palpation of scalp. NECK: Supple, trachea midline. No lymphadenopathy. EYES: No scleral icterus. No injection or drainage. CARDIOVASCULAR: Regular rate and rhythm without murmurs, gallops, or rubs. RESPIRATORY: Breath sounds equal bilaterally. No accessory muscle use. GASTROINTESTINAL: Abdomen soft, non-tender, nondistended. MUSCULOSKELETAL: No cyanosis, or edema. SKIN: Warm and dry. NEURO: No focal neurological deficits. PSYCH: Mood and affect appropriate. Procedures None Medications and IVs Current Medications Medications (Trade) Dose Ordered Sig/Jordan Route Start Time Stop Time Status Last Admin (NS Flush) 2 ml UNSCH PRN IV FLUSH 01/19/17 15:15 (NS Flush) 2 ml BID IV FLUSH 01/19/17 21:00 01/25/17 21:00 (Narcan Inj) 0.4 mg UNSCH PRN IV PUSH 01/19/17 15:15 (Milk Of Magnesia Liq) 30 ml Q12H PRN PO 01/19/17 15:15 (Senokot) 17.2 mg Q12H PRN PO 01/19/17 15:15 (Dulcolax Supp) 10 mg DAILY PRN RECTAL 01/19/17 15:15 (Lipitor) 40 mg HS PO 01/19/17 21:00 01/25/17 22:26 (Aricept) 5 mg DAILY PO 01/20/17 09:00 01/25/17 08:28 (Reglan) 10 mg QID PO 01/19/17 18:00 01/25/17 22:27 (Carafate Liq) 1 gm TIDAC PO 01/19/17 17:00 01/25/17 16:00 (Glucotrol) 5 mg BID@0800,1700 PO 01/19/17 17:15 Future Hold (Protonix) 40 mg DAILY PO 01/20/17 09:00 01/25/17 08:28 (NovoLIN R SUPPLEMENTAL SCALE) 1 ACHS SLIDING SCALE SQ 01/19/17 17:00 01/24/17 13:18 (D50w (Vial) Inj) 50 ml UNSCH PRN IV PUSH 01/19/17 16:00 01/20/17 07:42 (Glucagon Inj) 1 mg UNSCH PRN OTHER 01/19/17 16:00 (Hydrodiuril) 25 mg DAILY PO 01/20/17 09:00 01/25/17 08:29 (Macrobid) 100 mg BIDPC PO 01/21/17 18:00 01/25/17 17:43 (Lactinex) 1 tab TID PO 01/21/17 18:00 01/25/17 17:42 (Mag-Al Plus Susp Liq) 30 ml Q6H PRN PO 01/23/17 14:15 01/23/17 22:55 (Lopressor) 50 mg Q12HR PO 01/24/17 21:00 01/25/17 22:27 (KCl) 20 meq ONCE ONCE PO 01/26/17 09:15 01/26/17 09:16 A/P Problem List: (1) UTI (urinary tract infection) ICD Code: N39.0 - Urinary tract infection, site not specified Status: Acute (2) Elevated troponin ICD Code: R74.8 - Abnormal levels of other serum enzymes Status: Acute (3) Diabetes ICD Code: E11.9 - Type 2 diabetes mellitus without complications Status: Chronic (4) Anemia ICD Code: D64.9 - Anemia, unspecified Status: Acute (5) Possible NPH (6) Abdominal pain ICD Code: R10.9 - Unspecified abdominal pain (7) SVT (supraventricular tachycardia) ICD Code: I47.1 - Supraventricular tachycardia (8) Hypertension ICD Code: I10 - Essential (primary) hypertension Status: Chronic Assessment and Plan 81-year-old female admitted secondary to UTI and anemia now with SVT. The acute leukocytosis may be secondary to starting nitrofurantoin, her UTI was resistant to other treatments so this may be reactive to first 24 hours of actual treatment. Follow CBC. Consider discharge if she has a downward trend in her white blood cell count. Continue to monitor on telemetry to ensure no recurrence of SVT. SVT Still with tachycardia at times. - Continue metoprolol. Increased dose to 75 mg BID. Cardiology reevaluation appreciated. - Follow on telemetry. - follow up with cardiology as an outpt. Urinary tract infection Leukocytosis resolved. - Nitrofurantoin. - Probiotics. Troponin elevation May be related to recurrent SVT. - cardiology following. Outpt follow-up. Diabetes mellitus type 2 Well controlled. - Follow blood sugars. - Insulin sliding scale. - Diabetic diet. Anemia Related to chronic disease. Stable. - follow CBC. Possible normal pressure hydrocephalus Status post lumbar drain and removal. - Conservative therapy. - outpt NS follow-up. Head trauma CT showed subdural hygromas. Neurosurgery consult appreciated. - outpt followup. Hypokalemia/ Hypomagnesemia Likely s/t decreased PO intake and diarrhea. - replete and monitor. - hold bowel regimen. - d/c on PO KCl. PPx: SCDs Discharge Planning D/c to SNF Problem Qualifiers (1) UTI (urinary tract infection): Qualified Codes: N30.00 - Acute cystitis without hematuria (2) Anemia: Qualified Codes: D64.9 - Anemia, unspecified Daryl Moffett DO Jan 26, 2017 09:20
[2017-01-26] MEDS ORDERED: METO-309 PO (09:21)
[2017-01-26] MEDS ORDERED: METOPROLOL TARTRATE 25 MG TAB PO ONE (09:30)
[2017-01-26] MEDS: SUCRALFATE 1 GM/10 ML CUP PO SCH ×2 (09:41→12:53)
[2017-01-26] MEDS: METOCLOPRAMIDE HCL 10 MG TAB PO SCH ×2 (09:43→12:53)
[2017-01-26] MEDS: METOPROLOL TARTRATE 50 MG TAB PO SCH (09:44)
[2017-01-26] MEDS: LACTOBACILLUS ACIDOPHILUS TAB PO SCH ×2 (09:44→12:53)
[2017-01-26] MEDS: PANTOPRAZOLE SOD 40 MG DELAYED RELEASE TAB PO SCH (09:44)
[2017-01-26] MEDS: DONEPEZIL HCL 5 MG TAB PO SCH (09:46)
[2017-01-26] MEDS: HYDROCHLOROTHIAZIDE 25 MG TAB PO SCH (09:47)
[2017-01-26] MEDS: NITROFURANTOIN MONOHYD MACROCR 100 MG CAP PO SCH (09:47)
[2017-01-26] MEDS: SODIUM CHLORIDE 0.9% FLUSH 10 ML FLUSH IV FLUSH SCH (09:53)
[2017-01-26 12:00] VITALS: BP 153/69; PULSE 59; RESP 20; TEMP 97.7; O2SAT 97
--- NOTE | 2017-01-26 12:24 | HHI.NSPN ---
Note Status Status: Progress Note Interval History Diagnosis NPH Interval History This is a 81 years old female with history of dementia, recent admission for UTI with Escherichia coli, who presented today to the ED complaining of epigastric pain 6-7 out of 10, with history of nausea and vomiting, on and off chest pain. In general patient is poor historian, only mentioning of lower abdominal pain related to UTI. Apparently she fell down, Reports headaches. in addition, her hemoglobin dropped from 11.3 to 8.1, . She denies, nausea vomiting , no hematochezia or hematemesis, Her heart rate was 140-150, but no chest pain at this time. Se has history of diabetes mellitus and hypertension, as well as NPH. Patient denied dizziness or lightheaded. Using the brain show bilateral subdural hygromas. Neurosurgical consultation was requested 01/25: feeling well, pleasantly confused 01/26. Neurologically stable. She states that her diarrhea has resolved Labs, Micro, & Vital Signs Results Date Time Temp Pulse Resp B/P (MAP) Pulse Ox O2 Delivery O2 Flow Rate FiO2 01/26/17 08:00 97.8 74 20 164/69 (100) 97 01/26/17 04:47 97.5 69 16 160/86 (110) 99 01/25/17 23:47 98.4 59 16 152/70 (97) 98 01/25/17 20:05 80 01/25/17 20:05 98.5 89 16 142/65 (90) 100 01/25/17 19:43 Room Air 01/25/17 16:00 97.5 63 20 167/70 (102) 99 Constitutional Vital Signs Date Time Temp Pulse Resp B/P (MAP) Pulse Ox O2 Delivery O2 Flow Rate FiO2 01/26/17 08:00 97.8 74 20 164/69 (100) 97 01/26/17 04:47 97.5 69 16 160/86 (110) 99 01/25/17 23:47 98.4 59 16 152/70 (97) 98 01/25/17 20:05 80 01/25/17 20:05 98.5 89 16 142/65 (90) 100 01/25/17 19:43 Room Air 01/25/17 16:00 97.5 63 20 167/70 (102) 99 Physical Exam Ms nixon is alert, confused, oriented to self. Cranial nerve examination demonstrates the pupils to be equal, round, and reactive to light. Extra-ocular movements are intact with normal convergence. Facial motor function appears normal and symmetrical. Face sensation, hearing, visual grubbs, and olfaction can not be assessed properly due to the patients condition. The patient has an intact corneal reflex and a gag reflex. Sternocleidomastoid and trapezius have normal and symmetrical strength. Other cranial nerves are intact. Neck is soft and supple. Cervical spine has a normal range of motion of the cervical spine without pain. There is no tenderness to palpation to the spinous processes or paraspinal muscles. Muscle testing reveals normal bulk and tone overall without rigidity, spasticity , fasciculations, or atrophy. Muscle strength is 5/5 in all muscle groups of both upper and lower extremities. Deep tendon reflexes are 1+ and symmetrical in the biceps, triceps, and brachioradialis, bilaterally, in the upper extremities. In the lower extremities , the patellar and Achilles are 1+, bilaterally. There is a bilateral plantar flexion response. Hoffmanns sign is negative. There is no clonus or other abnormal reflexes noted. Cerebellar examination is limited due to the patient condition, but no obvious deficits are noted. Medications Current Medications Current Medications Ondansetron HCl (Zofran Inj) 4 mg ONCE ONCE IVP Last administered on 11:28; Start 01/19/17 at 11:15; Stop 01/19/17 at 11:16; Status DC Sodium Chloride 1,000 ml @ 1,000 mls/hr Q1H IV Last administered on 11:28; Start 01/19/17 at 11:07; Stop 01/19/17 at 12:06; Status DC Sodium Chloride (NS Flush) 2 ml UNSCH PRN IV FLUSH FLUSH AFTER USING IV ACCESS ; Start 01/19/17 at 11:15; Stop 01/19/17 at 15:48; Status DC Iohexol (Omnipaque 350 Inj) 85 ml K-MED ONCE IVCONTRAST Last administered on 01/19/17 10:24; Start 01/19/17 at 10:24; Stop 01/19/17 at 13:20; Status DC Ceftriaxone Sodium 1000 mg/ Sodium Chloride 100 ml @ 200 mls/hr Q24H IV Last administered on 01/20/17 16:57; Start 01/19/17 at 17:00; Stop 01/21/17 at 16 :23; Status DC Sodium Chloride (NS Flush) 2 ml UNSCH PRN IV FLUSH FLUSH AFTER USING IV ACCESS ; Start 01/19/17 at 15:15 Sodium Chloride (NS Flush) 2 ml BID IV FLUSH Last administered on 01/26/17 09 :53; Start 01/19/17 at 21:00 Heparin Sodium (Porcine) (Heparin Inj) 5,000 units Q8H SQ Last administered on 01/19/17 18:00; Start 01/19/17 at 16:00; Stop 01/19/17 at 19:07; Status DC Naloxone HCl (Narcan Inj) 0.4 mg UNSCH PRN IV PUSH SEE LABEL COMMENTS; Start 01/19/17 at 15:15 Senna/Docusate Sodium (Lara-Colace) 1 tab BID PO Last administered on 08:41; Start 01/19/17 at 21:00; Stop 01/24/17 at 12:23; Status DC Magnesium Hydroxide (Milk Of Magnesia Liq) 30 ml Q12H PRN PO Mild constipation ; Start 01/19/17 at 15:15 Sennosides (Senokot) 17.2 mg Q12H PRN PO Moderate constipation; Start at 15:15 Bisacodyl (Dulcolax Supp) 10 mg DAILY PRN RECTAL SEVERE CONSITIPATION; Start 01/19/17 at 15:15 Lactulose (Lactulose Liq) 30 ml DAILY PRN PO SEVERE CONSITIPATION; Start 01/19 at 15:15; Stop 01/19/17 at 16:04; Status DC Labetalol HCl (Trandate Inj) 10 mg ONCE ONCE IV PUSH ; Start 01/19/17 at 16:00 ; Stop 01/19/17 at 16:04; Status DC Atorvastatin Calcium (Lipitor) 40 mg HS PO Last administered on 01/25/17 22: 26; Start 01/19/17 at 21:00 Donepezil HCl (Aricept) 5 mg DAILY PO Last administered on 01/26/17 09:46; Start 01/20/17 at 09:00 Metoclopramide HCl (Reglan) 10 mg QID PO Last administered on 01/26/17 09:43 ; Start 01/19/17 at 18:00 Sucralfate (Carafate Liq) 1 gm TIDAC PO Last administered on 01/26/17 09:41; Start 01/19/17 at 17:00 Glipizide (Glucotrol) 5 mg BID@0800,1700 PO ; Start 01/19/17 at 17:15; Status Future Hold Non-Formulary Medication 1 tab DAILY PO ; Start 01/20/17 at 09:00; Status UNV Pantoprazole Sodium (Protonix) 40 mg DAILY PO Last administered on 01/26/17 09:44; Start 01/20/17 at 09:00 Insulin Human Regular (NovoLIN R SUPPLEMENTAL SCALE) 1 ACHS SLIDING SCALE SQ Last administered on 01/24/17 13:18; Start 01/19/17 at 17:00 Dextrose (D50w (Vial) Inj) 50 ml UNSCH PRN IV PUSH HYPOGLYCEMIA-SEE COMMENTS Last administered on 01/20/17 07:42; Start 01/19/17 at 16:00 Glucagon (Glucagon Inj) 1 mg UNSCH PRN OTHER HYPOGLYCEMIA-SEE COMMENTS; Start 01/19/17 at 16:00 Diltiazem HCl (Cardizem Inj) 10 mg STAT ONCE IV ; Start 01/19/17 at 16:15; Stop 01/19/17 at 16:15; Status DC Labetalol HCl (Trandate Inj) 10 mg ONCE ONCE IV PUSH Last administered on 16:15; Start 01/19/17 at 16:15; Stop 01/19/17 at 16:16; Status DC Lisinopril (Prinivil) 20 mg DAILY PO Last administered on 01/21/17 08:51; Start 01/20/17 at 09:00; Stop 01/21/17 at 11:41; Status DC Hydrochlorothiazide (Hydrodiuril) 25 mg DAILY PO Last administered on 09:47; Start 01/20/17 at 09:00 Potassium Chloride (KCl) 30 meq Q12HR PO Last administered on 01/21/17 08:50 ; Start 01/20/17 at 10:15; Stop 01/21/17 at 09:01; Status DC Magnesium Sulfate/ Dextrose 100 ml @ 100 mls/hr ONCE ONCE IV Last administered on 01/20/17 13:50; Start 01/20/17 at 12:30; Stop 01/20/17 at 13 :29; Status DC Diphenhydramine HCl (Benadryl) 25 mg ONCE ONCE PO Last administered on 23:33; Start 01/20/17 at 23:30; Stop 01/20/17 at 23:31; Status DC Diphenhydramine HCl (Benadryl Inj) 25 mg ONCE ONCE IV PUSH Last administered on 01/21/17 04:43; Start 01/21/17 at 04:15; Stop 01/21/17 at 04:18; Status DC Diltiazem HCl (Cardizem Cd) 120 mg ONCE ONCE PO Last administered on 12:25; Start 01/21/17 at 12:00; Stop 01/21/17 at 12:01; Status DC Diltiazem HCl (Cardizem Cd) 120 mg DAILY PO ; Start 01/22/17 at 09:00; Stop at 09:00; Status DC Metoprolol Tartrate (Lopressor) 25 mg ONCE ONCE PO Last administered on 16:52; Start 01/21/17 at 14:30; Stop 01/21/17 at 14:33; Status DC Metoprolol Tartrate (Lopressor) 25 mg Q12HR PO Last administered on 01/24/17 08:41; Start 01/22/17 at 09:00; Stop 01/24/17 at 12:22; Status DC Nitrofurantoin Macrocrystals (Macrobid) 100 mg BIDPC PO Last administered on 09:47; Start 01/21/17 at 18:00 Lactobacillus Acidophilus (Lactinex) 1 tab TID PO Last administered on 09:44; Start 01/21/17 at 18:00 Al Hydrox/Mg Hydrox/Simethicone (Mag-Al Plus Susp Liq) 30 ml Q6H PRN PO Dyspepsia Last administered on 01/23/17 22:55; Start 01/23/17 at 14:15 Potassium Bicarb/ Potassium Chloride (K-Lyte Cl Eff) 25 meq ONCE ONCE PO Last administered on 01/23/17 17:25; Start 01/23/17 at 17:00; Stop 01/23/17 at 17:01; Status DC Potassium Bicarb/ Potassium Chloride (K-Lyte Cl Eff) 50 meq ONCE ONCE PO Last administered on 01/24/17 09:51; Start 01/24/17 at 08:45; Stop 01/24/17 at 08:46; Status DC Magnesium Sulfate/ Dextrose 100 ml @ 100 mls/hr Q1H IV Last administered on 09:52; Start 01/24/17 at 09:00; Stop 01/24/17 at 10:59; Status DC Metoprolol Tartrate (Lopressor) 50 mg Q12HR PO Last administered on 01/26/17 09:44; Start 01/24/17 at 21:00 Metoprolol Tartrate (Lopressor) 25 mg ONCE ONCE PO Last administered on 13:08; Start 01/24/17 at 12:30; Stop 01/24/17 at 12:32; Status DC Potassium Chloride (KCl) 20 meq ONCE ONCE PO Last administered on 01/24/17 17:19; Start 01/24/17 at 15:30; Stop 01/24/17 at 15:31; Status DC Potassium Bicarb/ Potassium Chloride (K-Lyte Cl Eff) 50 meq ONCE ONCE PO Last administered on 01/25/17 11:18; Start 01/25/17 at 09:00; Stop 01/25/17 at 09:01; Status DC Magnesium Sulfate/ Dextrose 100 ml @ 100 mls/hr ONCE ONCE IV Last administered on 01/25/17 11:18; Start 01/25/17 at 09:00; Stop 01/25/17 at 09 :59; Status DC Potassium Chloride (KCl) 20 meq ONCE ONCE PO Last administered on 01/25/17 15:58; Start 01/25/17 at 15:00; Stop 01/25/17 at 15:01; Status DC Potassium Chloride (KCl) 20 meq ONCE ONCE PO Last administered on 01/26/17 09:45; Start 01/26/17 at 09:15; Stop 01/26/17 at 09:16; Status DC Metoprolol Tartrate (Lopressor) 25 mg ONCE ONCE PO Last administered on 09:52; Start 01/26/17 at 09:30; Stop 01/26/17 at 09:31; Status DC Attending Statement Neuro. Continue neuro checks Pulmonary.Continue pulmonary toilette, nasotracheal suction, and breathing treatments with nebulizers. Nutrition. Oral diet diarrhea workup. Derfer to medical Renal. Continue to monitor closely urine output, BUN and creatinine Diabetes mellitus. Continue to Monitor serial Acu checks and SSI as needed in detail UTI. Continue antibiotics Continue Protonix for stress ulcer prophylaxis Continue pacheco nolasco and SCD's Discharge to SNF when medically stable Jose L Taveras MD Jan 26, 2017 12:24
== END 2017-01-26 14:57 | DRG 690 ==
LOC: NEPE 10:23 → NEDA 15:07 → OBSVTOIN 16:09 → HCIS 16:58 → N04A 01-20 17:46
PROVIDERS: ADMIT Hospitalist; ATTEND Hospitalist
DX: N39.0 Urinary tract infection, site not specified (principal); R64 Cachexia; G91.2 (Idiopathic) normal pressure hydrocephalus; I47.1 Supraventricular tachycardia; F03.90 Unspecified dementia, unspecified severity, without behavioral disturbance, psychotic disturbance, mood disturbance, and anxiety; S06.9X0A Unspecified intracranial injury without loss of consciousness, initial encounter; Z68.1 Body mass index [BMI] 19.9 or less, adult; E83.42 Hypomagnesemia; E11.9 Type 2 diabetes mellitus without complications; D63.8 Anemia in other chronic diseases classified elsewhere; I10 Essential (primary) hypertension; D18.1 Lymphangioma, any site; I25.2 Old myocardial infarction; R11.2 Nausea with vomiting, unspecified; R74.8 Abnormal levels of other serum enzymes; E87.6 Hypokalemia; R19.7 Diarrhea, unspecified; W19.XXXA Unspecified fall, initial encounter; Y92.239 Unspecified place in hospital as the place of occurrence of the external cause; Z16.24 Resistance to multiple antibiotics; Z79.84 Long term (current) use of oral hypoglycemic drugs; Z85.3 Personal history of malignant neoplasm of breast; Z87.11 Personal history of peptic ulcer disease; Z87.440 Personal history of urinary (tract) infections; Z88.1 Allergy status to other antibiotic agents
CPT/HCPCS: 70450; 74177; 76775; 80048; 80053; 81001; 82550; 82948; 83036; 83690; 83735; 84484; 85014; 85018; 85025; 85027; 85610; 85730; 87077; 87086; 87186; 93005; 96361; 96374; J0696; J1200; J1644; J2405; J3475; J7030; Q9967

== ENCOUNTER 2017-02-14 13:10 | Inpatient (IN) | payer OTHER, MEDICARE ==
[2017-02-14] VITALS (11 sets, daily range): BP systolic 126–157; BP diastolic 57–69; PULSE 75–118; RESP 15–26; TEMP 97.9; O2SAT 97–99
[~2017-02-14] VITALS: Ht 149.9 cm; Wt 41.0 kg
[~2017-02-14 13:10] MED LIST changes: -AMIT10TA6 PO; +LISI-515 PO; -LISI20TA3 PO; +METO-309 PO; +NITR100C4 PO; +ONDA4TAB15; +POTA-163 PO
[2017-02-14] MEDS ORDERED: SODIUM CHLOR 0.9% 1000 ML INJ 1,000 ML IV ONE (13:51)
[2017-02-14] MEDS ORDERED: PANTOPRAZOLE SODIUM 40 MG VIAL IV PUSH ONE (14:00)
[2017-02-14] MEDS ORDERED: SODIUM CHLORIDE 0.9% FLUSH 10 ML FLUSH IVF PRN (14:00)
[2017-02-14] MEDS ORDERED: ONDANSETRON HCL 4 MG/2 ML VIAL IV PUSH ONE (14:00)
--- NOTE | 2017-02-14 14:00 | PD ---
HPI Chief Complaint: General Weakness Time Seen by Provider: 13:34 Travel History International Travel<30 days: No Contact w/Intl Traveler<30days: No Traveled to known affect area: No History of Present Illness HPI 81-year-old female presents to the emergency department with a neighbor for evaluation of generalized weakness, headaches, abdominal pain. Patient states she's been having headaches and abdominal pain for several months. She was recently discharged from here January 19, 2017. She was complaining the same epigastric pain that she is presenting with now. Patient states that she was in rehabilitation for 2 weeks. She has not taken any prescribed medications since being on a rehabilitation for 2 weeks. Her neighbor is concerned that she is generally weak. The patient states that she is falling multiple times per day. She states she is not eating or drinking. She has had significant weight loss. 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 Taveras for NPH. She states she has not followed up with him yet. She saw her physician asked her doctor's today and was referred to the emergency department. Patient states the pain is currently in her lower abdomen and epigastric region, 8 out of 10, nonradiating , throbbing. Patient denies exacerbating or alleviating factors. She reports associated nausea, no vomiting. No diarrhea or constipation. No blood in her stool. Moderate severity. PFSH Past Medical History Autoimmune Disease: No Blood Disorders: No Heart Rhythm Problems: No Cancer: No Cardiovascular Problems: Yes (2 accounts of SVT in 2017) High Cholesterol: No Chemotherapy: No Chest Pain: Yes Congestive Heart Failure: No Diabetes: Yes Diminished Hearing: No Endocrine: No Gastrointestinal Disorders: Yes Genitourinary: No Headaches: Yes Hypertension: Yes Immune Disorder: No Implanted Vascular Access Dvce: No Musculoskeletal: No Neurologic: No Psychiatric: No Reproductive: No Respiratory: No Immunizations Current: Yes Radiation Therapy: No Thyroid Disease: No Ulcer: Yes (STOMACH ULCER) Menopausal: Yes : 1 Para: 1 Miscarriage: 0 : 0 Tubal Ligation: Yes Past Surgical History Appendectomy: Yes (1955) Cholecystectomy: Yes (2002) Other Surgery: Yes (BREAST REDUCTION) Social History Alcohol Use: No Tobacco Use: No Substance Use: No Allergies-Medications (Allergen,Severity, Reaction): Coded Allergies: ciprofloxacin (Verified Allergy, Severe, RASH, VOMITING, 02/14/17) Reported Meds & Prescriptions Reported Meds & Active Scripts Active No Active Prescriptions or Reported Medications Review of Systems Except as stated in HPI: all other systems reviewed are Neg Physical Exam Narrative GENERAL: Well-nourished, well-developed elderly female patient, afebrile. SKIN: Focused skin assessment warm/dry. HEAD: Normocephalic. Atraumatic. EYES: No scleral icterus. No injection or drainage. NECK: Supple, trachea midline. No JVD or lymphadenopathy. CARDIOVASCULAR: Regular rate and rhythm without murmurs, gallops, or rubs. RESPIRATORY: Breath sounds equal bilaterally. No accessory muscle use. Lungs sounds are clear to auscultation. GASTROINTESTINAL: Abdomen soft and nondistended. Patient has epigastric tenderness to palpation. MUSCULOSKELETAL: No cyanosis, or edema. BACK: Nontender without obvious deformity. No CVA tenderness. Data Data Last Documented VS Vital Signs Date Time Temp Pulse Resp B/P (MAP) Pulse Ox O2 Delivery O2 Flow Rate FiO2 02/14/17 14:22 95 15 157/67 (97) 97 Room Air 02/14/17 13:11 97.9 Orders Orders Electrocardiogram (02/14/17 13:51) Complete Blood Count With Diff (02/14/17 13:51) Comprehensive Metabolic Panel (02/14/17 13:51) Magnesium (Mg) (02/14/17 13:51) Troponin I (02/14/17 13:51) Act Partial Throm Time (Ptt) (02/14/17 13:51) Prothrombin Time / Inr (Pt) (02/14/17 13:51) Urinalysis - C+S If Indicated (02/14/17 13:51) Chest, Single Ap (02/14/17 13:51) Ct Brain W/O Iv Contrast(Rout) (02/14/17 13:51) Ecg Monitoring (02/14/17 13:51) Iv Access Insert/Monitor (02/14/17 13:51) Oximetry (02/14/17 13:51) Sodium Chloride 0.9% Flush (Ns Flush) (02/14/17 14:00) Sodium Chlor 0.9% 1000 Ml Inj (Ns 1000 M (02/14/17 13:51) Creatine Kinase (Cpk) (02/14/17 13:51) Lipase (02/14/17 13:51) Ct Abd/Pel W Iv Contrast(Rout) (02/14/17 ) Type And Screen (02/14/17 13:51) Ondansetron Inj (Zofran Inj) (02/14/17 14:00) Pantoprazole Inj (Protonix Inj) (02/14/17 14:00) Vascular Access Team Consult/P PRN (02/14/17 14:30) Vascular Poc Ultrasound (02/14/17 ) Labs Laboratory Tests Test 02/14/17 14:20 02/14/17 14:25 02/14/17 16:38 Urine Color YELLOW Urine Turbidity CLEAR Urine pH 6.0 Urine Specific [place] 1.015 Urine Protein TRACE mg/dL Urine Glucose (UA) NEG mg/dL Urine Ketones NEG mg/dL Urine Occult Blood NEG Urine Nitrite NEG Urine Bilirubin NEG Urine Urobilinogen LESS THAN 2.0 MG/DL Urine Leukocyte Esterase TRACE Urine RBC 1 /hpf Urine WBC 5 /hpf Urine Squamous Epithelial Cells 2 /hpf Urine Transitional Epithelial Cells 1 /hpf Urine Calcium Oxalate Crystals RARE /hpf Urine Hyaline Casts 3 /lpf Urine Mucus FEW /lpf Microscopic Urinalysis Comment CULT NOT INDICATED Prothrombin Time 11.8 SEC Prothromb Time International Ratio 1.2 RATIO Activated Partial Thromboplast Time 20.6 SEC Blood Urea Nitrogen 13 MG/DL Creatinine 0.43 MG/DL Random Glucose 150 MG/DL Total Protein 7.5 GM/DL Albumin 2.5 GM/DL Calcium Level 9.1 MG/DL Magnesium Level 1.4 MG/DL Alkaline Phosphatase 76 U/L Aspartate Amino Transf (AST/SGOT) 30 U/L Alanine Aminotransferase (ALT/SGPT) 24 U/L Total Bilirubin 0.3 MG/DL Sodium Level 139 MEQ/L Potassium Level 3.9 MEQ/L Chloride Level 107 MEQ/L Carbon Dioxide Level 24.3 MEQ/L Anion Gap 8 MEQ/L Estimat Glomerular Filtration Rate 141 ML/MIN Total Creatine Kinase 34 U/L Troponin I 0.02 NG/ML Lipase 150 U/L White Blood Count 5.8 TH/MM3 Red Blood Count 2.68 MIL/MM3 Hemoglobin 8.7 GM/DL Hematocrit 25.3 % Mean Corpuscular Volume 94.6 FL Mean Corpuscular Hemoglobin 32.5 PG Mean Corpuscular Hemoglobin Concent 34.3 % Red Cell Distribution Width 14.5 % Platelet Count 209 TH/MM3 Mean Platelet Volume 8.5 FL Neutrophils (%) (Auto) 55.7 % Lymphocytes (%) (Auto) 28.2 % Monocytes (%) (Auto) 15.2 % Eosinophils (%) (Auto) 0.4 % Basophils (%) (Auto) 0.5 % Neutrophils # (Auto) 3.3 TH/MM3 Lymphocytes # (Auto) 1.6 TH/MM3 Monocytes # (Auto) 0.9 TH/MM3 Eosinophils # (Auto) 0.0 TH/MM3 Basophils # (Auto) 0.0 TH/MM3 CBC Comment DIFF FINAL Differential Comment MDM Medical Decision Making Medical Screen Exam Complete: Yes Emergency Medical Condition: Yes Medical Record Reviewed: Yes Interpretation(s) chest x-ray = CONCLUSION: 1. No acute cardiopulmonary disease. CT brain - CONCLUSION: 1. Small amount of acute hemorrhage in chronic left subdural collection with maximal dimension now measuring 1.7 cm in comparison to 1.3 cm in prior exam. 2. 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 3. No midline shift, hydrocephalus or intra-axial hemorrhage. CT abdomen/pelvis - CONCLUSION: 1. Progressive dilatation of the intra-and extrahepatic biliary tree characteristic of a distal common bile duct obstructing process. 2. Status post cholecystectomy. 3. Otherwise stable exam with no other acute abnormalities or interval change. Differential Diagnosis Electrolyte abnormality versus dehydration versus pancreatitis versus gastritis versus anemia versus ACS versus intracranial abnormality Narrative Course 81-year-old female presents to the emergency department for frequent falls, generalized weakness since being discharged from rehabilitation 2 weeks ago. She has not taken any of her medications. She states she is not eating or drinking. Patient was found possible NPH on last admission. She has not yet been able follow Dr. Taveras. EKG, CBC, CMP, magnesium, troponin, CK, lipase, PTT , PT/INR, UA, type and screen are ordered and pending. Chest x-ray, CT of the brain, CT abdomen/pelvis with IV contrast are ordered and pending. Patient is given normal saline 1 L IV bolus, Protonix 40 mg IV, Zofran 4 mg IV. EKG shows SR, HR 82, no acute ST changes. CBC shows anemia with hemoglobin 8.7 , hematocrit 25.3. CMP shows no acute abnormality. Magnesium is 1.4. Troponin is 0.02. CK is 34. Lipase is 150. PT is 11.8, INR 1.2, PTT 20.6. UA shows trace leukocyte esterase. Chest x-ray shows no acute cardiopulmonary disease. CT of the brain shows small amount of acute hemorrhage and chronic left subdural collection with maximum dimension now measuring 1.7 cm in comparison to 1.3 cm and prior exam. CT abdomen/pelvis shows progressive dilation of the intra-and extrahepatic biliary tree characteristic a distal common bile duct obstructing process. Dr. Taveras will consult on patient. Dr. Burrows accepted admission to ICU. Diagnosis Primary Impression: Subdural hemorrhage Additional Impressions: Generalized weakness Abdominal pain Qualified Codes: R10.84 - Generalized abdominal pain Admitting Information Admitting Physician Requests: Admit Scripts No Active Prescriptions or Reported Meds Aniyah Price Feb 14, 2017 14:00
[2017-02-14] MEDS ORDERED: IOHEXOL 350 MG/ML 10 ML VIAL (for RAD DIAG) IVCONTRAST ONE (15:19)
[2017-02-14 15:37] LABS: ALT (GPT) 24 U/L (10-53); ANION GAP 8 MEQ/L (5-15); AST (GOT) 30 U/L (15-37); BICARBONATE 24.3 MEQ/L (21.0-32.0); BLOOD UREA NITROGEN 13 MG/DL (7-18); CHLORIDE 107 MEQ/L (98-107); GLOMERULAR FILTRATION RATE 141 ML/MIN (>89); MAGNESIUM 1.4 MG/DL (1.5-2.5); POTASSIUM 3.9 MEQ/L (3.5-5.1); SODIUM (NA) 139 MEQ/L (136-145)
[2017-02-14 15:42] LABS: ALKALINE PHOSPHATASE 76 U/L (45-117); TOTAL BILIRUBIN ADULT 0.3 MG/DL (0.2-1.0)
[2017-02-14 15:43] LABS: CREATINE KINASE 34 U/L (26-192)
[2017-02-14 15:43] LABS: BLOOD, URINE NEG (NEG); CALCIUM OXALATE CRYSTALS,URINE RARE /hpf; COMMENT (UR) CULT NOT INDICATED; CULTURE IF INDICATED CULT NOT INDICATED; GLUCOSE,URINE NEG (NEG); HYALINE CAST, URINE 3 /lpf (RARE); KETONE, URINE NEG (NEG); MUCUS URINE FEW /lpf (OCC); NITRITE,URINE NEG (NEG); SQUAMOUS EPITHELIAL CELL URINE 2 /hpf (0-5); TRANSITIONAL EPI CELLS, URINE 1 /hpf; URINE COLOR YELLOW (YELLW/STRAW)
[2017-02-14 15:49] LABS: APTT (PATIENT) 20.6 SEC (24.3-30.1); INTERNATIONAL NORMALIZED RATIO 1.2 RATIO; PROTHROMBIN TIME - PATIENT 11.8 SEC (9.8-11.6)
--- NOTE | 2017-02-14 15:55 | RADRPT ---
EXAM DATE/TIME: 02/14/2017 15:11 [facility] COMPARISON: CHEST SINGLE AP, January 06, 2017, 14:08. INDICATIONS : Weakness. Short of breath. MEDICAL HISTORY : Hypertension. Cardiac disorder, SVT. Ulcer. Diabetes. SURGICAL HISTORY : Appendectomy. ENCOUNTER: Initial ACUITY: 1 day PAIN SCORE: 0/10 LOCATION: Bilateral chest FINDINGS: A single view of the chest demonstrates the lungs to be symmetrically aerated without evidence of mas s, infiltrate or effusion. The cardiomediastinal contours are unremarkable. Remainder the exam is un changed. CONCLUSION: 1. No acute cardiopulmonary disease. Rigoberto Reis MD on February 14, 2017 at 15:52 Board Certified Radiologist. This report was verified electronically.
--- NOTE | 2017-02-14 16:21 | RADRPT ---
EXAM DATE/TIME: 02/14/2017 15:54 [facility] COMPARISON: CT BRAIN W/O CONTRAST, January 22, 2017, 18:28. INDICATIONS : Head pain due to dizziness. RADIATION DOSE: 56.77 CTDIvol (mGy) MEDICAL HISTORY : Cardiovascular disease. Hypertension. Diabetes mellitus type 2. SURGICAL HISTORY : Appendectomy. Cholecystectomy. ENCOUNTER: Initial ACUITY: 1 week PAIN SCALE: 4/10 LOCATION: Bilateral cranial TECHNIQUE: Multiple contiguous axial images were obtained of the head. Using automated exposure control and adj ustment of the mA and/or kV according to patient size, radiation dose was kept as low as reasonably a chievable to obtain optimal diagnostic quality images. DICOM format image data is available electro nically for review and comparison. FINDINGS: Redemonstration of bilateral subdural collections. The right subdural collection is stable in size me asuring approximately 1.5 cm and is uniformly hypodense. The left subdural collection has increased i n size now measuring 1.7 cm in comparison to 1.3 cm on prior exam. There are small focal regions of i ncreased density seen dependently along the inferior aspect of the collection. Remainder of the exam is unchanged. There is moderate diffuse cerebral volume loss. Ventricles are mi dline and stable in size. Basilar cisterns are intact. Brainstem and cerebellum are intact. Paranasal sinuses and mastoid air cells are clear. Calvarium is intact. CONCLUSION: 1. Small amount of acute hemorrhage in chronic left subdural collection with maximal dimension now me asuring 1.7 cm in comparison to 1.3 cm in prior exam. 2. 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 3. No midline shift, hydrocephalus or intra-axial hemorrhage. Rigoberto Reis MD on February 14, 2017 at 16:14 Board Certified Radiologist. This report was verified electronically.
--- NOTE | 2017-02-14 16:41 | RADRPT ---
EXAM DATE/TIME: 02/14/2017 15:59 [facility] COMPARISON: CT ABDOMEN & PELVIS W CONTRAST, January 19, 2017, 12:54. INDICATIONS : Diffuse abdomen pain for three months. IV CONTRAST: 80 cc Omnipaque 350 (iohexol) IV ORAL CONTRAST: No oral contrast ingested. RADIATION DOSE: 6.64 CTDIvol (mGy) MEDICAL HISTORY : Cardiovascular disease. Diabetes mellitus type 2. Hypertension. SURGICAL HISTORY : Appendectomy. Cholecystectomy.Tubal ligation. ENCOUNTER: Initial ACUITY: 3 months PAIN SCALE: 8/10 LOCATION: Bilateral lower quadrant TECHNIQUE: Volumetric scanning of the abdomen and pelvis was performed. Using automated exposure control and ad justment of the mA and/or kV according to patient size, radiation dose was kept as low as reasonably achievable to obtain optimal diagnostic quality images. DICOM format image data is available electro nically for review and comparison. FINDINGS: LOWER LUNGS: The visualized lower lungs are clear. LIVER: Progressive biliary dilatation has occurred since the previous study. There is increasing distention of the intrahepatic biliary ducts. The common bile duct is larger measuring 1.4 cm. The common bile b ut terminates l to the head of pancreas without evidence of focal obstructing stone or mass. Post cholecystectomy clip is noted. SPLEEN: Normal size without lesion. PANCREAS: No evidence of discrete mass or pancreatitis. KIDNEYS: Normal in size and shape. There is no mass, stone or hydronephrosis. Small cysts are again identifie d. ADRENAL GLANDS: Within normal limits. VASCULAR: There is no aortic aneurysm. BOWEL/MESENTERY: The stomach, small bowel, and colon demonstrate no acute abnormality. There is no free intraperitone al air or fluid. ABDOMINAL WALL: Within normal limits. RETROPERITONEUM: There is no lymphadenopathy. BLADDER: No wall thickening or mass. REPRODUCTIVE: Within normal limits. INGUINAL: There is no lymphadenopathy or hernia. MUSCULOSKELETAL: Within normal limits for patient age. CONCLUSION: 1. Progressive dilatation of the intra-and extrahepatic biliary tree characteristic of a distal commo n bile duct obstructing process. 2. Status post cholecystectomy. 3. Otherwise stable exam with no other acute abnormalities or interval change. 1. Killian Lo MD on February 14, 2017 at 16:25 Board Certified Radiologist. This report was verified electronically.
[2017-02-14 17:11] LABS: AUTOMATED NEUTROPHIL # 3.3 TH/MM3 (1.8-7.7); BASOPHIL % 0.5 % (0.0-2.0); EOSINOPHIL % 0.4 % (0.0-4.0); HEMATOCRIT 25.3 % (35.0-46.0); HEMO FLAGS DIFF FINAL; LYMPH % 28.2 % (9.0-44.0); LYMPHOCYTE # 1.6 TH/MM3 (1.0-4.8); MEAN CELL VOLUME 94.6 FL (80.0-100.0); MEAN CORPUSCULAR HEMOGLOBIN 32.5 PG (27.0-34.0); MEAN CORPUSCULAR HGB CONC 34.3 % (32.0-36.0); MONO % 15.2 % (0.0-8.0); NEUT % 55.7 % (16.0-70.0); PLATELET COUNT 209 TH/MM3 (150-450); RED BLOOD COUNT 2.68 MIL/MM3 (4.00-5.30); RED CELL DISTRIBUTION WIDTH 14.5 % (11.6-17.2); WHITE BLOOD COUNT 5.8 TH/MM3 (4.0-11.0)
[2017-02-14] MEDS ORDERED: BISACODYL 10 MG SUPP RECTAL PRN (19:15)
[2017-02-14] MEDS ORDERED: ONDANSETRON HCL 4 MG/2 ML VIAL IV PUSH PRN (19:15)
[2017-02-14] MEDS ORDERED: LACTULOSE SYRUP 20 GM/30 ML CUP PO PRN (19:15)
[2017-02-14] MEDS ORDERED: MISCELLANEOUS NURSING INFORMATION XX SCH (19:15)
[2017-02-14] MEDS ORDERED: CHLORHEXIDINE GLUCONATE 2 % 1 PACK (2 CLOTHS) TOP PRN (19:15)
[2017-02-14] MEDS ORDERED: MORPHINE SULFATE 4 MG/ML INJ IV PUSH PRN (19:15)
[2017-02-14] MEDS ORDERED: SODIUM CHLORIDE 0.9% FLUSH 10 ML FLUSH IV FLUSH PRN (19:15)
[2017-02-14] MEDS ORDERED: RESP: ALBUTEROL 2.5 MG/IPRATROPIUM 0.5 MG NEB (PRN) INH (19:15)
[2017-02-14] MEDS ORDERED: MAGNESIUM HYDROXIDE SUSP 30 ML CUP PO PRN (19:15)
[2017-02-14] MEDS ORDERED: SENNOSIDES 8.6 MG TAB PO PRN (19:15)
[2017-02-14] MEDS: METOPROLOL TARTRATE 5 MG/5 ML VIAL IV PUSH SCH (19:37)
[2017-02-14] MEDS: SODIUM CHLOR 0.9% 1000 ML INJ 1,000 ML IV SCH (19:46)
--- NOTE | 2017-02-14 20:09 | HHI.HP ---
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 Patient states she's been having headaches and abdominal pain for several months. She was recently discharged from here January 19, 2017. She was complaining the same epigastric pain that she is presenting with now. She was in rehabilitation for 2 weeks. She has not taken any prescribed medications since being in a rehabilitation for 2 weeks. The patient states that she is falling multiple times per day. She has not been eating or drinking. She has also had significant weight loss. 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 Her pain is located in her lower abdomen and epigastric region, 8 out of 10, nonradiating, throbbing. Patient denies exacerbating or alleviating factors. She reports associated nausea, but no vomiting. No diarrhea or constipation. No blood in her stool. CT of the head done in the emergency department shows small bleed in the left chronic subdural hematoma as well as a small increase in size of chronic hygroma. Review of Systems Constitutional: COMPLAINS OF: Weight loss, Dizziness, Change in appetite, DENIES: Diaphoretic episodes, Fatigue, Fever, Weight gain, Chills, Night Sweats Endocrine: DENIES: Abnorml menstrual pattern, Heat/cold intolerance, Polydipsia , Polyuria, Polyphagia Eyes: DENIES: Blurred vision, Diplopia, Eye inflammation, Eye pain, Vision loss , Photosensitivity, Double Vision Ears, nose, mouth, throat: DENIES: Tinnitus, Hearing loss, Vertigo, Nasal discharge, Oral lesions, Throat pain, Hoarseness, Ear Pain, Running Nose, Epistaxis, Sinus Pain, Toothache, Odynophagia Respiratory: DENIES: Apneas, Cough, Snoring, Wheezing, Hemoptysis, Sputum production, Shortness of breath Cardiovascular: DENIES: Chest pain, Palpitations, Syncope, Dyspnea on Exertion , PND, Lower Extremity Edema, Orthopnea, Claudication Gastrointestinal: COMPLAINS OF: Abdominal pain, Nausea, DENIES: Black stools, Bloody stools, Constipation, Diarrhea, Vomiting, Difficulty Swallowing, Anorexia Genitourinary: DENIES: Abnormal vaginal bleeding, Dysmenorrhea, Dyspareunia, Sexual dysfunction, Urinary frequency, Urinary incontinence, Urgency, Hematuria , Dysuria, Nocturia, Vaginal discharge Musculoskeletal: DENIES: Joint pain, Muscle aches, Stiffness, Joint Swelling, Back pain, Neck pain Integumentary: DENIES: Abnormal pigmentation, Pruritus, Rash, Nail changes, Breast masses, Breast skin changes, Nipple discharge Hematologic/lymphatic: DENIES: Bruising, Lymphadenopathy Immunologic/allergic: DENIES: Eczema, Urticaria Neurologic: COMPLAINS OF: Abnormal gait, Headache, Localized weakness, Poor Balance, DENIES: Paresthesias, Seizures, Speech Problems, Tremor Psychiatric: DENIES: Anxiety, Confusion, Mood changes, Depression, Hallucinations, Agitation, Suicidal Ideation, Homicidal Ideation, Delusions Past Family Social History Allergies: Coded Allergies: ciprofloxacin (Verified Allergy, Severe, RASH, VOMITING, 02/14/17) Past Medical History History of SVT 2 episodes in 2017 History of H pylori gastritis/peptic ulcer Hypertension Past Surgical History History of appendectomy cholecystectomy and breast reduction Reported Medications Reported Meds & Active Scripts Active No Active Prescriptions or Reported Medications Active Ordered Medications Current Medications Medications (Trade) Dose Ordered Sig/Jordan Route PRN Reason Start Time Stop Time Status Last Admin Dose Admin Sodium Chloride 1,000 ml @ 84 mls/hr [id number] IV 02/14/17 19:14 02/14/17 19:46 Sodium Chloride (NS Flush) 2 ml UNSCH PRN IV FLUSH FLUSH AFTER USING IV ACCESS 02/14/17 19:15 Sodium Chloride (NS Flush) 2 ml BID IV FLUSH 02/14/17 21:00 Acetaminophen (Tylenol) 650 mg Q6H PRN PO PAIN 1-5 AND/OR FEVER >101F 02/14/17 19:15 Morphine Sulfate (Morphine Inj) 2 mg Q2H PRN IV PUSH PAIN SCALE 6 TO 10 02/14/17 19:15 Famotidine (Pepcid Inj) 20 mg Q12HR IV PUSH 02/14/17 21:00 Ondansetron HCl (Zofran Inj) 4 mg Q6H PRN IV PUSH NAUSEA OR VOMITING 02/14/17 19:15 Albuterol/ Ipratropium (Duoneb Neb) 1 ampule Q2HR NEB PRN INH WHEEZING 02/14/17 19:15 Miscellaneous Information 1 [id number] XX 02/14/17 19:15 Chlorhexidine Gluconate (Chlorhexidine 2% Cloth) 3 pack Taper DAILY@04 TOP 02/15/17 04:00 02/11/18 03:59 Chlorhexidine Gluconate (Chlorhexidine 2% Cloth) 3 pack UNSCH PRN TOP HYGIENIC CARE 02/14/17 19:15 Senna/Docusate Sodium (Lara-Colace) 1 tab BID PO 02/14/17 21:00 Magnesium Hydroxide (Milk Of Magnesia Liq) 30 ml Q12H PRN PO Mild constipation 02/14/17 19:15 Sennosides (Senokot) 17.2 mg Q12H PRN PO Moderate constipation 02/14/17 19:15 Bisacodyl (Dulcolax Supp) 10 mg DAILY PRN RECTAL SEVERE CONSITIPATION 02/14/17 19:15 Lactulose (Lactulose Liq) 30 ml DAILY PRN PO SEVERE CONSITIPATION 02/14/17 19:15 Metoprolol Tartrate (Lopressor Inj) 5 mg Q6H IV PUSH 02/14/17 19:30 02/14/17 19:37 Family History Review with the patient,not aware of significant medical history runs in his family Social History Denied tobacco alcohol or illicit drug abuse Physical Exam Vital Signs Vital Signs Date Time Temp Pulse Resp B/P (MAP) Pulse Ox O2 Delivery O2 Flow Rate FiO2 02/14/17 19:46 75 16 133/61 (85) 99 Room Air 02/14/17 19:31 85 18 143/67 (92) 99 Room Air 02/14/17 18:00 100 26 146/69 (94) 99 Room Air 02/14/17 17:15 106 23 148/67 (94) 99 Room Air 02/14/17 16:30 104 15 154/66 (95) 99 Room Air 02/14/17 15:30 98 16 155/63 (93) 98 Room Air 02/14/17 14:22 95 15 157/67 (97) 97 Room Air 02/14/17 14:22 Room Air 02/14/17 13:11 97.9 118 20 138/62 (87) 98 Room Air Physical Exam GENERAL: Well-nourished, well-developed elderly female patient, afebrile. SKIN: Focused skin assessment warm/dry. HEAD: Normocephalic. Atraumatic. EYES: No scleral icterus. No injection or drainage. NECK: Supple, trachea midline. No JVD or lymphadenopathy. CARDIOVASCULAR: Regular rate and rhythm without murmurs, gallops, or rubs. RESPIRATORY: Breath sounds equal bilaterally. No accessory muscle use. Lungs sounds are clear to auscultation. GASTROINTESTINAL: Abdomen soft and nondistended. Patient has epigastric tenderness to palpation. MUSCULOSKELETAL: No cyanosis, or edema. BACK: Nontender without obvious deformity. No CVA tenderness. NEUROLOGICAL: GCS 15, no focal weakness Laboratory Laboratory Tests Test 02/14/17 14:20 02/14/17 14:25 02/14/17 16:38 Urine Color YELLOW Urine Turbidity CLEAR Urine pH 6.0 Urine Specific [place] 1.015 Urine Protein TRACE Urine Glucose (UA) NEG Urine Ketones NEG Urine Occult Blood NEG Urine Nitrite NEG Urine Bilirubin NEG Urine Urobilinogen LESS THAN 2.0 Urine Leukocyte Esterase TRACE Urine RBC 1 Urine WBC 5 Urine Squamous Epithelial Cells 2 Urine Transitional Epithelial Cells 1 Urine Calcium Oxalate Crystals RARE Urine Hyaline Casts 3 Urine Mucus FEW Microscopic Urinalysis Comment CULT NOT INDICATED Prothrombin Time 11.8 Prothromb Time International Ratio 1.2 Activated Partial Thromboplast Time 20.6 Blood Urea Nitrogen 13 Creatinine 0.43 Random Glucose 150 Total Protein 7.5 Albumin 2.5 Calcium Level 9.1 Magnesium Level 1.4 Alkaline Phosphatase 76 Aspartate Amino Transf (AST/SGOT) 30 Alanine Aminotransferase (ALT/SGPT) 24 Total Bilirubin 0.3 Sodium Level 139 Potassium Level 3.9 Chloride Level 107 Carbon Dioxide Level 24.3 Anion Gap 8 Estimat Glomerular Filtration Rate 141 Total Creatine Kinase 34 Troponin I 0.02 Lipase 150 White Blood Count 5.8 Red Blood Count 2.68 Hemoglobin 8.7 Hematocrit 25.3 Mean Corpuscular Volume 94.6 Mean Corpuscular Hemoglobin 32.5 Mean Corpuscular Hemoglobin Concent 34.3 Red Cell Distribution Width 14.5 Platelet Count 209 Mean Platelet Volume 8.5 Neutrophils (%) (Auto) 55.7 Lymphocytes (%) (Auto) 28.2 Monocytes (%) (Auto) 15.2 Eosinophils (%) (Auto) 0.4 Basophils (%) (Auto) 0.5 Neutrophils # (Auto) 3.3 Lymphocytes # (Auto) 1.6 Monocytes # (Auto) 0.9 Eosinophils # (Auto) 0.0 Basophils # (Auto) 0.0 CBC Comment DIFF FINAL Differential Comment Result Diagram: 02/14/17 1638 02/14/17 1425 Imaging Last [address] 02/14/17 1351 Signed Impressions: Service Date/Time: Tuesday, February 14, 2017 15:54 - CONCLUSION: 1. Small amount of acute hemorrhage in chronic left subdural collection with maximal dimension now measuring 1.7 cm in comparison to 1.3 cm in prior exam. 2. 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 3. No midline shift, hydrocephalus or intra-axial hemorrhage. Rigoberto Reis MD Chest X-Ray 02/14/17 1351 Signed Impressions: Service Date/Time: Tuesday, February 14, 2017 15:11 - CONCLUSION: 1. No acute cardiopulmonary disease. Rigoberto Reis MD Abdomen/Pelvis CT 02/14/17 0000 Signed Impressions: Service Date/Time: Tuesday, February 14, 2017 15:59 - CONCLUSION: 1. Progressive dilatation of the intra-and extrahepatic biliary tree characteristic of a distal common bile duct obstructing process. 2. Status post cholecystectomy. 3. Otherwise stable exam with no other acute abnormalities or interval change. 1. Killian Lo MD Septic Shock Reassessment Septic shock perfusion: reassessment completed Caprini VTE Risk Assessment Caprini VTE Risk Assessment: Mod/High Risk (score >= 2) VTE Pharm Contraindication: Hemorrhage Caprini Risk Assessment Model Point Value = 1 Point Value = 2 Point Value = 3 Point Value = 5 Age 41-60 Minor surgery BMI > 25 kg/m2 Swollen legs Varicose veins or History of unexplained or recurrent spontaneous Oral contraceptives or hormone replacement Sepsis (< 1 month) Serious lung disease, including pneumonia (< 1 month) Abnormal pulmonary function Acute myocardial infarction Congestive heart failure (< 1 month) History of inflammatory bowel disease Medical patient at bed rest Age 61-74 Arthroscopic surgery Major open surgery (> 45 min) Laparoscopic surgery (> 45 min) Malignancy Confined to bed (> 72 hours) Immobilizing plaster cast Central venous access Age >= 75 History of VTE Family history of VTE Factor V Leiden Prothrombin [id number] Lupus anticoagulant Anticardiolipin antibodies Elevated serum homocysteine Heparin-induced thrombocytopenia Other congenital or acquired thrombophilia Stroke (< 1 month) Elective arthroplasty Hip, pelvis, or leg fracture Acute spinal cord injury (< 1 month) Prophylaxis Regimen Total Risk Factor Score Risk Level Prophylaxis Regimen 0-1 Low Early ambulation 2 Moderate Order ONE of the following: *Sequential Compression Device (SCD) *Heparin 5000 units SQ BID 3-4 Higher Order ONE of the following medications: *Heparin 5000 units SQ TID *Enoxaparin/Lovenox 40 mg SQ daily (WT < 150 kg, CrCl > 30 mL/min) *Enoxaparin/Lovenox 30 mg SQ daily (WT < 150 kg, CrCl > 10-29 mL/min) *Enoxaparin/Lovenox 30 mg SQ BID (WT < 150 kg, CrCl > 30 mL/min) AND/OR *Sequential Compression Device (SCD) 5 or more Highest Order ONE of the following medications: *Heparin 5000 units SQ TID (Preferred with Epidurals) *Enoxaparin/Lovenox 40 mg SQ daily (WT < 150 kg, CrCl > 30 mL/min) *Enoxaparin/Lovenox 30 mg SQ daily (WT < 150 kg, CrCl > 10-29 mL/min) *Enoxaparin/Lovenox 30 mg SQ BID (WT < 150 kg, CrCl > 30 mL/min) AND *Sequential Compression Device (SCD) Assessment and Plan Assessment and Plan Weakness and headaches - Subdural hematoma with small hemorrhagic conversion - Hygroma - Neurosurgical consultation - Neuro checks per ICU protocol Abdominal pain - Progressive dilatation of the intra-and extrahepatic biliary tree characteristic of a distal common bile duct obstructing process - Strength neurology consultation for ERCP - Nothing by mouth Hypertension - Lopressor IV every 6 hours History of SVTs - Lopressor DVT GI prophylaxis - Teds SCDs - No pharmacological DVT prophylaxis due to ICH - Pepcid Critical Care: The total critical care time was 35 minutes. Time to perform other separately billable procedures was not included in the critical care time. Rylan Cain MD Feb 14, 2017 20:08
[2017-02-14] MEDS: SODIUM CHLORIDE 0.9% FLUSH 10 ML FLUSH IV FLUSH SCH (21:00)
[2017-02-14] MEDS: DOCUSATE SODIUM 50 MG/SENNA 8.6 MG TAB PO SCH (21:00)
[2017-02-14] MEDS: FAMOTIDINE 20 MG/2 ML VIAL IV PUSH SCH (21:36)
[2017-02-15] VITALS (17 sets, daily range): BP systolic 127–172; BP diastolic 60–77; PULSE 69–106; RESP 16–31; TEMP 97.6–99.1; O2SAT 92–99
[2017-02-15] MEDS: METOPROLOL TARTRATE 5 MG/5 ML VIAL IV PUSH SCH ×3 (01:48→13:53)
[2017-02-15] MEDS: CHLORHEXIDINE GLUCONATE 2 % 1 PACK (2 CLOTHS) TOP SCH (04:00)
[2017-02-15] MEDS: ACETAMINOPHEN 325 MG TAB PO PRN (05:19)
[2017-02-15] MEDS: SODIUM CHLORIDE 0.9% FLUSH 10 ML FLUSH IV FLUSH SCH ×2 (09:00→20:46)
[2017-02-15] MEDS: SODIUM CHLOR 0.9% 1000 ML INJ 1,000 ML IV SCH ×2 (09:30→17:52)
[2017-02-15] MEDS: FAMOTIDINE 20 MG/2 ML VIAL IV PUSH SCH ×2 (09:32→20:41)
[2017-02-15] MEDS: DOCUSATE SODIUM 50 MG/SENNA 8.6 MG TAB PO SCH ×2 (09:32→20:41)
[2017-02-15 10:16] LABS: AUTOMATED NEUTROPHIL # 2.2 TH/MM3 (1.8-7.7); BASOPHIL % 0.4 % (0.0-2.0); EOSINOPHIL % 0.7 % (0.0-4.0); HEMO FLAGS DIFF FINAL; LYMPH % 36.5 % (9.0-44.0); LYMPHOCYTE # 1.6 TH/MM3 (1.0-4.8); MEAN CELL VOLUME 94.6 FL (80.0-100.0); MEAN CORPUSCULAR HEMOGLOBIN 30.6 PG (27.0-34.0); MEAN CORPUSCULAR HGB CONC 32.3 % (32.0-36.0); MONO % 12.5 % (0.0-8.0); NEUT % 49.9 % (16.0-70.0); PLATELET COUNT 262 TH/MM3 (150-450); RED BLOOD COUNT 2.85 MIL/MM3 (4.00-5.30); RED CELL DISTRIBUTION WIDTH 14.7 % (11.6-17.2); WHITE BLOOD COUNT 4.5 TH/MM3 (4.0-11.0)
[2017-02-15 10:53] LABS: ALKALINE PHOSPHATASE 64 U/L (45-117); ALT (GPT) 27 U/L (10-53); AMYLASE 22 U/L (25-115); ANION GAP 8 MEQ/L (5-15); AST (GOT) 34 U/L (15-37); BICARBONATE 23.6 MEQ/L (21.0-32.0); BLOOD UREA NITROGEN 12 MG/DL (7-18); CHLORIDE 115 MEQ/L (98-107); GLOMERULAR FILTRATION RATE 264 ML/MIN (>89); MAGNESIUM 1.4 MG/DL (1.5-2.5); POTASSIUM 3.8 MEQ/L (3.5-5.1); SODIUM (NA) 147 MEQ/L (136-145); TOTAL BILIRUBIN ADULT 0.2 MG/DL (0.2-1.0)
--- NOTE | 2017-02-15 11:48 | PD.CONS ---
HPI History of Present Illness This is a 81 year old female who presented with weakness, headaches, and abd pain. She has been having epigastric and lower quadrant pain for 2-3 months, constant. Admits occasional nausea, no vomiting. No diarrhea, blood in stool, tarry stool, weight loss, fevers, or hx prior GI problems. Never had EGD or colonoscopy. Has been foudn to have SDH and hygroma. (Komal Reinoso) PFSH Past Medical History SDH HTN hygroma Past Surgical History appendectomy cholecystectomy (Komal Reinoso) Coded Allergies: ciprofloxacin (Verified Allergy, Severe, RASH, VOMITING, 02/14/17) Family History denies Social History denies toxic habits (Komal Reinoso) Review of Systems Constitutional: DENIES: Weight loss Endocrine: DENIES: Polydipsia Eyes: DENIES: Blurred vision Ears, nose, mouth, throat: DENIES: Hearing loss Respiratory: DENIES: Cough Cardiovascular: DENIES: Chest pain Gastrointestinal: COMPLAINS OF: Abdominal pain, Nausea, DENIES: Black stools, Bloody stools, Constipation, Diarrhea, Vomiting Genitourinary: DENIES: Hematuria Musculoskeletal: DENIES: Joint Swelling Integumentary: DENIES: Abnormal pigmentation Hematologic/lymphatic: DENIES: Bruising Immunologic/allergic: DENIES: Eczema Neurologic: DENIES: Abnormal gait Psychiatric: DENIES: Mood changes (Komal Reinoso) GI Exam Vitals I&O Vital Signs Date Time Temp Pulse Resp B/P (MAP) Pulse Ox O2 Delivery O2 Flow Rate FiO2 02/15/17 07:08 98 21 02/15/17 07:04 87 02/15/17 07:03 97.9 69 16 144/67 (92) 99 02/15/17 06:11 02/15/17 05:08 93 16 150/71 (97) 99 Room Air 02/15/17 04:00 98.5 95 16 131/60 (83) 97 Room Air 02/15/17 03:03 87 16 151/66 (94) 99 Room Air 02/15/17 02:00 88 16 145/66 (92) 97 Room Air 02/15/17 01:10 93 16 129/61 (83) 99 Room Air 02/15/17 00:05 91 16 127/64 (85) 98 Room Air 02/14/17 23:05 93 16 134/62 (86) 98 Room Air 02/14/17 21:58 83 16 126/57 (80) 99 Room Air 02/14/17 20:55 85 16 131/59 (83) 99 Room Air 02/14/17 19:46 75 16 133/61 (85) 99 Room Air 02/14/17 19:31 85 18 143/67 (92) 99 Room Air 02/14/17 18:00 100 26 146/69 (94) 99 Room Air 02/14/17 17:15 106 23 148/67 (94) 99 Room Air 02/14/17 16:30 104 15 154/66 (95) 99 Room Air 02/14/17 15:30 98 16 155/63 (93) 98 Room Air 02/14/17 14:22 95 15 157/67 (97) 97 Room Air 02/14/17 14:22 Room Air 02/14/17 13:11 97.9 118 20 138/62 (87) 98 Room Air I/O 02/14/17 02/14/17 02/14/17 02/15/17 02/15/17 02/15/17 07:00 15:00 23:00 07:00 15:00 23:00 Intake Total 1000 ml Balance 1000 ml IV Total 1000 ml # Voids 1 Imaging Last Impressions Head CT 02/14/17 1351 Signed Impressions: Service Date/Time: Tuesday, February 14, 2017 15:54 - CONCLUSION: 1. Small amount of acute hemorrhage in chronic left subdural collection with maximal dimension now measuring 1.7 cm in comparison to 1.3 cm in prior exam. 2. 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 3. No midline shift, hydrocephalus or intra-axial hemorrhage. Rigoberto Reis MD Chest X-Ray 02/14/17 1351 Signed Impressions: Service Date/Time: Tuesday, February 14, 2017 15:11 - CONCLUSION: 1. No acute cardiopulmonary disease. Rigoberto Reis MD Abdomen/Pelvis CT 02/14/17 0000 Signed Impressions: Service Date/Time: Tuesday, February 14, 2017 15:59 - CONCLUSION: 1. Progressive dilatation of the intra-and extrahepatic biliary tree characteristic of a distal common bile duct obstructing process. 2. Status post cholecystectomy. 3. Otherwise stable exam with no other acute abnormalities or interval change. 1. Killian Lo MD Laboratory Test 02/14/17 14:20 02/14/17 14:25 02/14/17 16:38 02/15/17 09:40 Urine Color YELLOW Urine Turbidity CLEAR Urine pH 6.0 Urine Specific [place] 1.015 Urine Protein TRACE mg/dL Urine Glucose (UA) NEG mg/dL Urine Ketones NEG mg/dL Urine Occult Blood NEG Urine Nitrite NEG Urine Bilirubin NEG Urine Urobilinogen LESS THAN 2.0 MG/DL Urine Leukocyte Esterase TRACE Urine RBC 1 /hpf Urine WBC 5 /hpf Urine Squamous Epithelial Cells 2 /hpf Urine Transitional Epithelial Cells 1 /hpf Urine Calcium Oxalate Crystals RARE /hpf Urine Hyaline Casts 3 /lpf Urine Mucus FEW /lpf Microscopic Urinalysis Comment CULT NOT INDICATED Prothrombin Time 11.8 SEC Prothromb Time International Ratio 1.2 RATIO Activated Partial Thromboplast Time 20.6 SEC Blood Urea Nitrogen 13 MG/DL 12 MG/DL Creatinine 0.43 MG/DL 0.25 MG/DL Random Glucose 150 MG/DL 65 MG/DL Total Protein 7.5 GM/DL 6.1 GM/DL Albumin 2.5 GM/DL 2.1 GM/DL Calcium Level 9.1 MG/DL 8.7 MG/DL Magnesium Level 1.4 MG/DL 1.4 MG/DL Alkaline Phosphatase 76 U/L 64 U/L Aspartate Amino Transf (AST/SGOT) 30 U/L 34 U/L Alanine Aminotransferase (ALT/SGPT) 24 U/L 27 U/L Total Bilirubin 0.3 MG/DL 0.2 MG/DL Sodium Level 139 MEQ/L 147 MEQ/L Potassium Level 3.9 MEQ/L 3.8 MEQ/L Chloride Level 107 MEQ/L 115 MEQ/L Carbon Dioxide Level 24.3 MEQ/L 23.6 MEQ/L Anion Gap 8 MEQ/L 8 MEQ/L Estimat Glomerular Filtration Rate 141 ML/MIN 264 ML/MIN Total Creatine Kinase 34 U/L Troponin I 0.02 NG/ML Lipase 150 U/L 93 U/L White Blood Count 5.8 TH/MM3 4.5 TH/MM3 Red Blood Count 2.68 MIL/MM3 2.85 MIL/MM3 Hemoglobin 8.7 GM/DL 8.7 GM/DL Hematocrit 25.3 % 27.0 % Mean Corpuscular Volume 94.6 FL 94.6 FL Mean Corpuscular Hemoglobin 32.5 PG 30.6 PG Mean Corpuscular Hemoglobin Concent 34.3 % 32.3 % Red Cell Distribution Width 14.5 % 14.7 % Platelet Count 209 TH/MM3 262 TH/MM3 Mean Platelet Volume 8.5 FL 8.1 FL Neutrophils (%) (Auto) 55.7 % 49.9 % Lymphocytes (%) (Auto) 28.2 % 36.5 % Monocytes (%) (Auto) 15.2 % 12.5 % Eosinophils (%) (Auto) 0.4 % 0.7 % Basophils (%) (Auto) 0.5 % 0.4 % Neutrophils # (Auto) 3.3 TH/MM3 2.2 TH/MM3 Lymphocytes # (Auto) 1.6 TH/MM3 1.6 TH/MM3 Monocytes # (Auto) 0.9 TH/MM3 0.6 TH/MM3 Eosinophils # (Auto) 0.0 TH/MM3 0.0 TH/MM3 Basophils # (Auto) 0.0 TH/MM3 0.0 TH/MM3 CBC Comment DIFF FINAL DIFF FINAL Differential Comment Phosphorus Level 3.9 MG/DL Amylase Level 22 U/L Physical Examination HEENT: PERRL; normocephalic; atraumatic; no jaundice. CHEST: CTA CARDIAC: RRR ABDOMEN: Soft, nondistended, upper quadrant TTP; no hepatosplenomegaly; bowel sounds are present in all four quadrants. EXTREMITIES: No clubbing, cyanosis, or edema. SKIN: Normal; no rash; no jaundice. SCRUB TECHNICIAN: No focal deficits; alert and oriented times three. (Komal Reinoso [facility]) Assessment and Plan Plan ASSESSMENT - abd pain - 2-3 months. c/o pain in upper and lower quadrants. CT showed progressive dilatation biliary tree consistent with distal CBD obstruction, s/p cholecystectomy no LFT derangement at this time. - anemia - normocytic hgb 8.7 on admission - SDH, hygroma, HTN per CCM, neuro consult pending PLAN - MRCP - tumor markers - ok for clears after MRCP - await neuro consult - further recs to follow This pt seen by myself and Dr Andres and this note is written on his behalf (Komal Reinoso) Physician Comments Patient seen and examined Agree with above Continue with current supportive care Monitor labs MRCP basically unremarkable and lab work is basically unremarkable as far as the liver function tests This coincidental finding of dilated bile duct is probably related to the history of cholecystectomy and it is doubtful that this has anything to do with the abdominal pain We will await tumor markers We can consider endoscopic ultrasound but at this point with the patient having subdural hematoma I don't think this is the right time to pursue that especially that these are coincidental findings that do not contour attributed to any of the presentation (Maxx Andres MD) Komal Reinoso Feb 15, 2017 11:48 Maxx Andres MD Feb 15, 2017 22:52
--- NOTE | 2017-02-15 13:36 | HHI.CCPN ---
Subjective Remarks/Hospital Course 02/14: 81-year-old female presents for evaluation of generalized weakness, headaches, and abdominal pain. Patient states she's been having headaches and abdominal pain for several months. She was recently discharged from here January 19, 2017. She was complaining the same epigastric pain that she is presenting with now. She was in rehabilitation for 2 weeks. She has not taken any prescribed medications since being in a rehabilitation for 2 weeks. The patient states that she is falling multiple times per day. She has not been eating or drinking. She has also had significant weight loss. 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 Her pain is located in her lower abdomen and epigastric region, 8 out of 10, nonradiating, throbbing. Patient denies exacerbating or alleviating factors. She reports associated nausea, but no vomiting. No diarrhea or constipation. No blood in her stool. CT of the head done in the emergency department shows small bleed in the left chronic subdural hematoma as well as a small increase in size of chronic hygroma. 02/15: Resting in bed comfortably. Not in any acute distress. Feels hungry and wishes to eat. She was just evaluated by GI and is awaiting MRCP. Dr. Taveras from neurosurgery not planning any intervention at this time and is okay with transferring patient out. Objective Vital Signs Date Time Temp Pulse Resp B/P (MAP) Pulse Ox O2 Delivery O2 Flow Rate FiO2 02/15/17 07:08 98 21 02/15/17 07:04 87 02/15/17 07:03 97.9 16 144/67 (92) 02/15/17 05:08 Room Air Result Diagram: 02/15/17 0940 02/15/17 0940 Imaging Last [address] 02/14/17 1351 Signed Impressions: Service Date/Time: Tuesday, February 14, 2017 15:54 - CONCLUSION: 1. Small amount of acute hemorrhage in chronic left subdural collection with maximal dimension now measuring 1.7 cm in comparison to 1.3 cm in prior exam. 2. 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 3. No midline shift, hydrocephalus or intra-axial hemorrhage. Rigoberto Reis MD Chest X-Ray 02/14/17 1351 Signed Impressions: Service Date/Time: Tuesday, February 14, 2017 15:11 - CONCLUSION: 1. No acute cardiopulmonary disease. Rigoberto Reis MD Abdomen/Pelvis CT 02/14/17 0000 Signed Impressions: Service Date/Time: Tuesday, February 14, 2017 15:59 - CONCLUSION: 1. Progressive dilatation of the intra-and extrahepatic biliary tree characteristic of a distal common bile duct obstructing process. 2. Status post cholecystectomy. 3. Otherwise stable exam with no other acute abnormalities or interval change. 1. Killian Lo MD Objective Remarks GENERAL: Well-nourished, well-developed elderly female patient, afebrile. SKIN: Focused skin assessment warm/dry. HEAD: Normocephalic. Atraumatic. EYES: No scleral icterus. No injection or drainage. NECK: Supple, trachea midline. No JVD or lymphadenopathy. CARDIOVASCULAR: Regular rate and rhythm without murmurs, gallops, or rubs. RESPIRATORY: Breath sounds equal bilaterally. No accessory muscle use. Lungs sounds are clear to auscultation. GASTROINTESTINAL: Abdomen soft and nondistended. Patient has epigastric tenderness to palpation. MUSCULOSKELETAL: No cyanosis, or edema. BACK: Nontender without obvious deformity. No CVA tenderness. NEUROLOGICAL: GCS 15, no focal weakness A/P Assessment and Plan Weakness and headaches - Subdural hematoma with small hemorrhagic conversion - Hygroma - Neurosurgical consultation. D/W Dr. Taveras, he is not planning any neurosurgical intervention at this time. - Neuro checks per ICU protocol Abdominal pain - Progressive dilatation of the intra-and extrahepatic biliary tree characteristic of a distal common bile duct obstructing process - GI consulted. Awaiting MRCP and further workup per GI. -We will advance to clear liquid diet following MRCP. Hypertension - Lopressor IV every 6 hours History of SVTs - Lopressor DVT GI prophylaxis - Teds SCDs - No pharmacological DVT prophylaxis due to ICH - Pepcid Consult and transfer to hospitalist service for further medical management. Critical care will be signing off at this time. Please reconsult if needed. Narinder Burrows MD Feb 15, 2017 13:36
[2017-02-15] MEDS: diphenhydrAMINE HCL 25 MG CAP PO PRN ×2 (13:52→20:41)
--- NOTE | 2017-02-15 15:52 | EKG ---
Date Performed: 02/14/2017 Time Performed: 15:06:28 PTAGE: 81 years EKG: Sinus rhythm NONSPECIFIC T-WAVE ABNORMALITY BORDERLINE ECG PREVIOUS TRACING : 01/19/2017 15.56 DOCTOR: Huber Chin Interpretating Date/Time 02/15/2017 15:51:04
--- NOTE | 2017-02-15 17:22 | HHI.NSPN ---
(Maya Schreiber) Note Status Status: Progress Note (Maya Schreiber) Interval History Interval History Ms. Matthew is a 81 y/o female who was previously evaluated for subdural hygroma on 01/19/17 and she was managed nonoperatively. She has been readmitted for abdominal pain. A follow up CT Head shows mild acute on chronic subdural hygroma. Neurologically, Ms. Matthew remained alert, stably confused. She moves all four extremities. She denies headaches, focal weakness. 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 She previously underwent a trial of lumbar drain placement with improvement. A neurosurgical evaluation was requested. (Maya Schreiber) Labs, Micro, & Vital Signs Results Date Time Temp Pulse Resp B/P (MAP) Pulse Ox O2 Delivery O2 Flow Rate FiO2 02/15/17 16:00 92 02/15/17 16:00 98.1 92 17 160/72 (101) 92 02/15/17 15:00 74 02/15/17 14:00 102 31 166/77 (106) 98 02/15/17 14:00 102 02/15/17 12:00 99.1 106 21 167/70 (102) 98 02/15/17 12:00 90 02/15/17 10:00 106 22 151/67 (95) 97 02/15/17 10:00 106 02/15/17 08:00 97.9 90 18 142/65 (90) 97 02/15/17 08:00 90 02/15/17 07:08 98 21 02/15/17 07:04 87 02/15/17 07:03 97.9 69 16 144/67 (92) 99 02/15/17 07:00 98 Room Air 02/15/17 06:11 02/15/17 05:08 93 16 150/71 (97) 99 Room Air 02/15/17 04:00 98.5 95 16 131/60 (83) 97 Room Air 02/15/17 03:03 87 16 151/66 (94) 99 Room Air 02/15/17 02:00 88 16 145/66 (92) 97 Room Air 02/15/17 01:10 93 16 129/61 (83) 99 Room Air 02/15/17 00:05 91 16 127/64 (85) 98 Room Air 02/14/17 23:05 93 16 134/62 (86) 98 Room Air 02/14/17 21:58 83 16 126/57 (80) 99 Room Air 02/14/17 20:55 85 16 131/59 (83) 99 Room Air 02/14/17 19:46 75 16 133/61 (85) 99 Room Air 02/14/17 19:31 85 18 143/67 (92) 99 Room Air 02/14/17 18:00 100 26 146/69 (94) 99 Room Air Constitutional Vital Signs Date Time Temp Pulse Resp B/P (MAP) Pulse Ox O2 Delivery O2 Flow Rate FiO2 02/15/17 16:00 92 02/15/17 16:00 98.1 92 17 160/72 (101) 92 02/15/17 15:00 74 02/15/17 14:00 102 31 166/77 (106) 98 02/15/17 14:00 102 02/15/17 12:00 99.1 106 21 167/70 (102) 98 02/15/17 12:00 90 02/15/17 10:00 106 22 151/67 (95) 97 02/15/17 10:00 106 02/15/17 08:00 97.9 90 18 142/65 (90) 97 02/15/17 08:00 90 02/15/17 07:08 98 21 02/15/17 07:04 87 02/15/17 07:03 97.9 69 16 144/67 (92) 99 02/15/17 07:00 98 Room Air 02/15/17 06:11 02/15/17 05:08 93 16 150/71 (97) 99 Room Air 02/15/17 04:00 98.5 95 16 131/60 (83) 97 Room Air 02/15/17 03:03 87 16 151/66 (94) 99 Room Air 02/15/17 02:00 88 16 145/66 (92) 97 Room Air 02/15/17 01:10 93 16 129/61 (83) 99 Room Air 02/15/17 00:05 91 16 127/64 (85) 98 Room Air 02/14/17 23:05 93 16 134/62 (86) 98 Room Air 02/14/17 21:58 83 16 126/57 (80) 99 Room Air 02/14/17 20:55 85 16 131/59 (83) 99 Room Air 02/14/17 19:46 75 16 133/61 (85) 99 Room Air 02/14/17 19:31 85 18 143/67 (92) 99 Room Air 02/14/17 18:00 100 26 146/69 (94) 99 Room Air (Maya Schreiber) Physical Exam Ms. Matthew is alert, confused, oriented to self. Cranial nerve examination demonstrates the pupils to be equal, round, and reactive to light. Extra-ocular movements are intact with normal convergence. Facial motor function appears normal and symmetrical. Face sensation, hearing, visual grubbs, and olfaction can not be assessed properly due to the patients condition. Neck is soft and supple. Muscle testing reveals normal bulk and tone overall without rigidity, spasticity , fasciculations, or atrophy. Muscle strength is 5/5 in all muscle groups of both upper and lower extremities. Deep tendon reflexes are 1+ and symmetrical in the biceps, triceps, and brachioradialis, bilaterally, in the upper extremities. In the lower extremities , the patellar and Achilles are 1+, bilaterally. There is a bilateral plantar flexion response. Hoffmanns sign is negative. There is no clonus or other abnormal reflexes noted. Cerebellar examination is limited due to the patient condition, but no obvious deficits are noted. (Maya Schreiber) Ms. Matthew is alert, confused, oriented to self. She is conversant in Japanese. Resting comfortably in bed in no acute distress. Cranial nerve examination: pupils equal, round, and reactive to light. EOMs are intact with normal convergence. Facial motor function appears normal and symmetrical. Neck is soft and supple. Muscle strength is 5/5 in all muscle groups of both upper and lower extremities. Deep tendon reflexes are 1+ and symmetrical in the biceps, triceps, and brachioradialis, bilaterally, in the upper extremities. In the lower extremities , the patellar and Achilles are 1+, bilaterally. There is a bilateral plantar flexion response. Hoffmanns sign is negative. There is no clonus. Cerebellar examination is limited due to the patient condition, but no obvious deficits are noted. (Jose L Taveras MD) Medications Current Medications Current Medications Medications (Trade) Dose Ordered Sig/Jordan Route PRN Reason Start Time Stop Time Status Last Admin Dose Admin Sodium Chloride 1,000 ml @ 84 mls/hr [id number] IV 02/14/17 19:14 02/15/17 09:30 Sodium Chloride (NS Flush) 2 ml UNSCH PRN IV FLUSH FLUSH AFTER USING IV ACCESS 02/14/17 19:15 Sodium Chloride (NS Flush) 2 ml BID IV FLUSH 02/14/17 21:00 Acetaminophen (Tylenol) 650 mg Q6H PRN PO PAIN 1-5 AND/OR FEVER >101F 02/14/17 19:15 02/15/17 05:19 Morphine Sulfate (Morphine Inj) 2 mg Q2H PRN IV PUSH PAIN SCALE 6 TO 10 02/14/17 19:15 Famotidine (Pepcid Inj) 20 mg Q12HR IV PUSH 02/14/17 21:00 02/15/17 09:32 Ondansetron HCl (Zofran Inj) 4 mg Q6H PRN IV PUSH NAUSEA OR VOMITING 02/14/17 19:15 Albuterol/ Ipratropium (Duoneb Neb) 1 ampule Q2HR NEB PRN INH WHEEZING 02/14/17 19:15 Miscellaneous Information 1 Q361D XX 02/14/17 19:15 Chlorhexidine Gluconate (Chlorhexidine 2% Cloth) 3 pack Taper DAILY@04 TOP 02/15/17 04:00 02/11/18 03:59 Chlorhexidine Gluconate (Chlorhexidine 2% Cloth) 3 pack UNSCH PRN TOP HYGIENIC CARE 02/14/17 19:15 Senna/Docusate Sodium (Lara-Colace) 1 tab BID PO 02/14/17 21:00 02/15/17 09:32 Magnesium Hydroxide (Milk Of Magnesia Liq) 30 ml Q12H PRN PO Mild constipation 02/14/17 19:15 Sennosides (Senokot) 17.2 mg Q12H PRN PO Moderate constipation 02/14/17 19:15 Bisacodyl (Dulcolax Supp) 10 mg DAILY PRN RECTAL SEVERE CONSITIPATION 02/14/17 19:15 Lactulose (Lactulose Liq) 30 ml DAILY PRN PO SEVERE CONSITIPATION 02/14/17 19:15 Metoprolol Tartrate (Lopressor Inj) 5 mg Q6H IV PUSH 02/14/17 19:30 02/15/17 13:53 Diphenhydramine HCl (Benadryl) 25 mg Q6H PRN PO ITCHING 02/15/17 11:45 02/15/17 13:52 (Maya Schreiber) Current Medications Current Medications Sodium Chloride (NS Flush) 2 ml UNSCH PRN IVF FLUSH AFTER USING IV ACCESS; Start 02/14/17 at 14:00; Stop 02/14/17 at 19:23; Status DC Sodium Chloride 1,000 ml @ 1,000 mls/hr Q1H ONCE IV Last administered on 02/14 15:24; Start 02/14/17 at 13:51; Stop 02/14/17 at 14:50; Status DC Ondansetron HCl (Zofran Inj) 4 mg ONCE ONCE IV PUSH Last administered on 02/14 15:24; Start 02/14/17 at 14:00; Stop 02/14/17 at 14:02; Status DC Pantoprazole Sodium (Protonix Inj) 40 mg ONCE ONCE IV PUSH Last administered on 02/14/17 15:24; Start 02/14/17 at 14:00; Stop 02/14/17 at 14:02; Status DC Sodium Chloride 1,000 ml @ 84 mls/hr [id number] IV Last administered on 17:52; Start 02/14/17 at 19:14; Status Future Hold Sodium Chloride (NS Flush) 2 ml UNSCH PRN IV FLUSH FLUSH AFTER USING IV ACCESS ; Start 02/14/17 at 19:15 Sodium Chloride (NS Flush) 2 ml BID IV FLUSH Last administered on 02/16/17 09 :03; Start 02/14/17 at 21:00 Acetaminophen (Tylenol) 650 mg Q6H PRN PO PAIN 1-5 AND/OR FEVER >101F Last administered on 02/15/17 05:19; Start 02/14/17 at 19:15 Morphine Sulfate (Morphine Inj) 2 mg Q2H PRN IV PUSH PAIN SCALE 6 TO 10; Start 02/14/17 at 19:15; Stop 02/16/17 at 07:30; Status DC Famotidine (Pepcid Inj) 20 mg Q12HR IV PUSH Last administered on 02/16/17 09: 03; Start 02/14/17 at 21:00 Ondansetron HCl (Zofran Inj) 4 mg Q6H PRN IV PUSH NAUSEA OR VOMITING Last administered on 02/16/17 09:03; Start 02/14/17 at 19:15 Albuterol/ Ipratropium (Duoneb Neb) 1 ampule Q2HR NEB PRN INH WHEEZING; Start 02/14/17 at 19:15 Miscellaneous Information 1 Q361D XX ; Start 02/14/17 at 19:15 Chlorhexidine Gluconate (Chlorhexidine 2% Cloth) 3 pack Taper DAILY@04 TOP ; Start 02/15/17 at 04:00; Stop 02/11/18 at 03:59 Chlorhexidine Gluconate (Chlorhexidine 2% Cloth) 3 pack UNSCH PRN TOP HYGIENIC CARE; Start 02/14/17 at 19:15 Senna/Docusate Sodium (Lara-Colace) 1 tab BID PO Last administered on 20:41; Start 02/14/17 at 21:00 Magnesium Hydroxide (Milk Of Magnesia Liq) 30 ml Q12H PRN PO Mild constipation ; Start 02/14/17 at 19:15 Sennosides (Senokot) 17.2 mg Q12H PRN PO Moderate constipation; Start at 19:15 Bisacodyl (Dulcolax Supp) 10 mg DAILY PRN RECTAL SEVERE CONSITIPATION; Start 02/14/17 at 19:15 Lactulose (Lactulose Liq) 30 ml DAILY PRN PO SEVERE CONSITIPATION; Start 02/14 at 19:15 Metoprolol Tartrate (Lopressor Inj) 5 mg Q6H IV PUSH Last administered on 02/15 13:53; Start 02/14/17 at 19:30; Stop 02/15/17 at 20:28; Status DC Diphenhydramine HCl (Benadryl) 25 mg Q6H PRN PO ITCHING Last administered on 20:41; Start 02/15/17 at 11:45 Metoprolol Tartrate (Lopressor) 25 mg Q12HR PO Last administered on 02/16/17 09:03; Start 02/15/17 at 21:00 Dextrose (D50w (Vial) Inj) 50 ml UNSCH PRN IV PUSH HYPOGLYCEMIA-SEE COMMENTS Last administered on 02/16/17 07:50; Start 02/16/17 at 00:45 Glucagon (Glucagon Inj) 1 mg UNSCH PRN OTHER HYPOGLYCEMIA-SEE COMMENTS; Start 02/16/17 at 00:45 Insulin Human Regular (NovoLIN R SUPPLEMENTAL SCALE) 1 ACHS SLIDING SCALE SQ ; Start 02/16/17 at 08:00 Enalaprilat (Vasotec Inj) 2.5 mg ONCE ONCE IV PUSH Last administered on 06:15; Start 02/16/17 at 06:15; Stop 02/16/17 at 06:40; Status DC Morphine Sulfate (Morphine Inj) 2 mg Q2H PRN IV PUSH PAIN SCALE 6 TO 10; Start 02/16/17 at 07:45 Amlodipine Besylate (Norvasc) 5 mg DAILY PO Last administered on 02/16/17 09: 09; Start 02/16/17 at 09:00 Enalaprilat (Vasotec Inj) 1.25 mg Q6H PRN IV PUSH SBP>160, DBP>90; Start 02/16 at 13:15 Clonidine (Catapres) 0.1 mg Q6H PRN PO SBP> OR = 180, DBP> OR = 100; Start at 13:15 Iohexol (Omnipaque 350 Inj) 80 ml STK-MED ONCE IVCONTRAST Last administered on 02/14/17 15:19; Start 02/14/17 at 15:19; Stop 02/16/17 at 15:04; Status DC (Jose L Taveras MD) Medical Decision Making MDM Remarks 81 y/o female with mild acute on chronic bilateral subdural hygroma NPH, previous trial of lumbar drain with improvement, however in view of subdural hematoma, 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 Intra and extrahepatic biliary duct dilatation without discrete evidence of obstructing lesion. 2. Common bile duct measures 1.3 cm in diameter. 3. No evidence of common bile duct stone. Killian Lo MD (Jose L Taveras MD) Plan Plan Remarks cont nonoperative mg of b/l subdural hygroma cont serial neuro checks cont medical mgt and w/u for abdominal pain Physical Therapy (Maya Schreiber) Attending Statement Neuro. Continue neuro checks in a serial fashion. Pulmonary. Continue aggressive pulmonary toilette, nasotracheal suction, and breathing treatments with nebulizers. Daily PT and OT Nutrition. Tolerating Oral diet Renal. Continue to monitor closely urine output, BUN and creatinine Endocrine. Continue to Monitor serial Acu checks and SSI as needed in detail ID continue to monitor for signs of infection Continue Protonix for stress ulcer prophylaxis Continue Octavio hose and SCD's for DVT prophylaxis The exam, history, and the medical decision-making described in the above note were completed with the assistance of the mid-level provider. I reviewed and agree with the findings presented. I attest that I had a [id number] encounter with the patient on the same day, and personally performed and documented my assessment and findings in the medical record. (Jose L Taveras MD) Maya Schreiber Feb 15, 2017 17:22 Jose L Taveras MD Feb 16, 2017 17:45
--- NOTE | 2017-02-15 17:41 | RADRPT ---
EXAM DATE/TIME: 02/15/2017 16:42 [facility] COMPARISON: CT ABDOMEN & PELVIS W CONTRAST, February 14, 2017, 15:59. INDICATIONS : Abdominal pain. MEDICAL HISTORY : Hypertension. Diabetes mellitus type 2. SURGICAL HISTORY : Cholecystectomy. Appendectomy. ENCOUNTER: Initial ACUITY: 2 day PAIN SCORE: 2/10 LOCATION: abdomen TECHNIQUE: Multiplanar, multisequence magnetic resonance imaging of the abdomen was performed. High-resolution 3D dataset was utilized to reconstruct maximum-intensity projection (MIP) images. FINDINGS: INTRAHEPATIC BILE DUCTS: The intrahepatic biliary ducts are mildly dilated. EXTRAHEPATIC BILE DUCTS: The common bile duct is dilated and measures 1.3 cm. The distal common bile duct is distorted by bruce thing motion however no stone or filling defect is identified. GALLBLADDER: Status post cholecystectomy. LIVER: Normal size and signal intensity. No concerning liver lesion is identified on this non-contrast exam. PANCREAS: The main pancreatic duct is normal in size. There is no significant anatomical variant. Signal inte nsity is within normal limits. No mass is visualized on this non-contrast exam. OTHER: The remaining visualized structures demonstrate no acute abnormality on this non-contrast exam. CONCLUSION: 1. Intra and extrahepatic biliary duct dilatation without discrete evidence of obstructing lesion. 2. Common bile duct measures 1.3 cm in diameter. 3. No evidence of common bile duct stone. Killian Lo MD on February 15, 2017 at 17:34 Board Certified Radiologist. This report was verified electronically.
[2017-02-15] MEDS: METOPROLOL TARTRATE 25 MG TAB PO SCH (20:41)
[2017-02-16] VITALS (7 sets, daily range): BP systolic 140–187; BP diastolic 51–89; PULSE 79–119; RESP 17–19; TEMP 97.4–98.2; O2SAT 96–100
[2017-02-16] MEDS ORDERED: DEXTROSE 50% IN WATER 50 ML VIAL(D50) IV PUSH PRN (00:45)
[2017-02-16] MEDS ORDERED: GLUCAGON 1 MG/ML VIAL OTHER PRN (00:45)
[2017-02-16] MEDS: CHLORHEXIDINE GLUCONATE 2 % 1 PACK (2 CLOTHS) TOP SCH (04:00)
[2017-02-16] MEDS ORDERED: ENALAPRILAT 2.5 MG/2 ML VIAL IV PUSH ONE (06:15)
[2017-02-16 07:26] LABS: AUTOMATED NEUTROPHIL # 3.3 TH/MM3 (1.8-7.7); BASOPHIL % 0.4 % (0.0-2.0); EOSINOPHIL % 0.2 % (0.0-4.0); HEMATOCRIT 26.3 % (35.0-46.0); HEMO FLAGS DIFF FINAL; LYMPH % 23.4 % (9.0-44.0); LYMPHOCYTE # 1.2 TH/MM3 (1.0-4.8); MEAN CELL VOLUME 95.4 FL (80.0-100.0); MEAN CORPUSCULAR HEMOGLOBIN 31.8 PG (27.0-34.0); MEAN CORPUSCULAR HGB CONC 33.3 % (32.0-36.0); MONO % 9.6 % (0.0-8.0); NEUT % 66.4 % (16.0-70.0); PLATELET COUNT 290 TH/MM3 (150-450); RED BLOOD COUNT 2.76 MIL/MM3 (4.00-5.30); RED CELL DISTRIBUTION WIDTH 15.1 % (11.6-17.2)
[2017-02-16] MEDS ORDERED: MORPHINE SULFATE 2 MG/ML INJ IV PUSH PRN (07:45)
[2017-02-16 07:50] LABS: ALKALINE PHOSPHATASE 72 U/L (45-117); TOTAL BILIRUBIN ADULT 0.3 MG/DL (0.2-1.0)
[2017-02-16 07:53] LABS: ALT (GPT) 32 U/L (10-53); ANION GAP 14 MEQ/L (5-15); AST (GOT) 38 U/L (15-37); BICARBONATE 19.4 MEQ/L (21.0-32.0); BLOOD UREA NITROGEN 11 MG/DL (7-18); CHLORIDE 113 MEQ/L (98-107); GLOMERULAR FILTRATION RATE 241 ML/MIN (>89); POTASSIUM 3.5 MEQ/L (3.5-5.1); SODIUM (NA) 146 MEQ/L (136-145)
[2017-02-16] MEDS: INSULIN NovoLIN REGULAR SUPPLEMENTAL SCALE SQ SCH ×4 (08:00→20:34)
[2017-02-16] MEDS: DOCUSATE SODIUM 50 MG/SENNA 8.6 MG TAB PO SCH ×2 (09:00→20:35)
[2017-02-16] MEDS: METOPROLOL TARTRATE 25 MG TAB PO SCH ×2 (09:03→20:35)
[2017-02-16] MEDS: FAMOTIDINE 20 MG/2 ML VIAL IV PUSH SCH ×2 (09:03→20:35)
[2017-02-16] MEDS: SODIUM CHLORIDE 0.9% FLUSH 10 ML FLUSH IV FLUSH SCH ×2 (09:03→20:35)
[2017-02-16] MEDS: amLODIPine BESYLATE 5 MG TAB PO SCH (09:09)
--- NOTE | 2017-02-16 09:20 | HHI.PR ---
Subjective Remarks Pt seen around 8;30 this morning. states she was feeling sick earlier w nausea/ vomiting/sweats thinks she had a fever, but now she feels better. RUQ pain is 2- 3/10, no nausea or vomiting now. states milk makes her feel better usually. No CP/SOB Discussed w RN, Pt's BS was 54 when pt was having symptoms, received D50 and she felt better. Currently NPO. Objective Vitals Vital Signs Date Time Temp Pulse Resp B/P (MAP) Pulse Ox O2 Delivery O2 Flow Rate FiO2 02/16/17 08:13 97.8 119 19 149/89 (109) 99 02/16/17 04:00 97.5 109 17 180/76 (110) 100 02/16/17 00:08 97.6 100 17 178/72 (107) 98 02/15/17 20:30 97.6 99 17 163/70 (101) 98 02/15/17 19:38 Room Air 02/15/17 18:24 97.7 101 17 172/73 (106) 99 02/15/17 16:00 92 02/15/17 16:00 98.1 92 17 160/72 (101) 92 02/15/17 15:00 74 02/15/17 14:00 102 31 166/77 (106) 98 02/15/17 14:00 102 02/15/17 12:00 99.1 106 21 167/70 (102) 98 02/15/17 12:00 90 02/15/17 10:00 106 22 151/67 (95) 97 02/15/17 10:00 106 I/O 02/15/17 02/15/17 02/15/17 02/16/17 02/16/17 02/16/17 07:00 15:00 23:00 07:00 15:00 23:00 # Voids 1 2 3 # Bowel Movements 1 Result Diagram: 02/16/17 0643 02/16/17 0643 Imaging Last Impressions Cholangiopancreatography MRI 02/15/17 0000 Signed Impressions: Service Date/Time: Wednesday, February 15, 2017 16:42 - CONCLUSION: 1. Intra and extrahepatic biliary duct dilatation without discrete evidence of obstructing lesion. 2. Common bile duct measures 1.3 cm in diameter. 3. No evidence of common bile duct stone. Killian Lo MD Head CT 02/14/17 1351 Signed Impressions: Service Date/Time: Tuesday, February 14, 2017 15:54 - CONCLUSION: 1. Small amount of acute hemorrhage in chronic left subdural collection with maximal dimension now measuring 1.7 cm in comparison to 1.3 cm in prior exam. 2. 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 3. No midline shift, hydrocephalus or intra-axial hemorrhage. Rigoberto Reis MD Chest X-Ray 02/14/17 1351 Signed Impressions: Service Date/Time: Tuesday, February 14, 2017 15:11 - CONCLUSION: 1. No acute cardiopulmonary disease. Rigoberto Reis MD Abdomen/Pelvis CT 02/14/17 0000 Signed Impressions: Service Date/Time: Tuesday, February 14, 2017 15:59 - CONCLUSION: 1. Progressive dilatation of the intra-and extrahepatic biliary tree characteristic of a distal common bile duct obstructing process. 2. Status post cholecystectomy. 3. Otherwise stable exam with no other acute abnormalities or interval change. 1. Killian Lo MD Objective Remarks GENERAL: elderly female patient, laying in bed EYES: EOMI NECK: trachea midline CARDIOVASCULAR: Regular rate and rhythm without murmurs RESPIRATORY: Breath sounds equal bilaterally. No accessory muscle use. Lungs sounds are clear to auscultation. GASTROINTESTINAL: Abdomen soft and nondistended. some discomfort w deep palpation in the epigastric RUQ region but no guarding or rebound MUSCULOSKELETAL: No edema. NEUROLOGICAL: answers questions appropriately, awake and alert A/P Assessment and Plan Weakness and headaches - Subdural hematoma with small hemorrhagic conversion - Hygroma - Neurosurgical following, Dr. Taveras, no plans for any neurosurgical intervention at this time. - Neuro checks per floor protocol Abdominal pain - Progressive dilatation of the intra-and extrahepatic biliary tree characteristic of a distal common bile duct obstructing process - GI following and MRCP shows intra and extrahepatic biliary duct dilatation without discrete evidence of obstructing lesion. Per GI's note f/u on tumor markers. Might consider endoscopic ultrasound but at this point with the patient having subdural hematoma, it is felt that it isn't the right time to pursue this at this time. - advance to clear liquid diet especially in the setting of hypoglycemia. Monitor closely. Pt currently asymptomatic post D50. Await GI's recs to see if ok to advance diet further Hypertension - Lopressor IV every 6 hours - Added amlodipine 5mg po daily as BP's not well controlled. History of SVTs - Lopressor DVT GI prophylaxis - Teds SCDs - No pharmacological DVT prophylaxis due to ICH - Pepcid Discharge Planning GI and neurosx following. Awaiting final recs Elva Garrison MD Feb 16, 2017 09:19
[2017-02-16] MEDS ORDERED: ENALAPRILAT 1.25 MG/ML VIAL IV PUSH PRN (13:15)
[2017-02-16] MEDS ORDERED: cloNIDine HCL 0.1 MG TAB PO PRN (13:15)
--- NOTE | 2017-02-16 13:31 | HHI.GIFU ---
Subjective Remarks Pt resting in bed, family at bedside. Tolerating CLD. Says she feels much better. Has some RUQ discomfort but it is improved. NO n/v today. (Komal Reinoso) Objective Vitals I&O Vital Signs Date Time Temp Pulse Resp B/P (MAP) Pulse Ox O2 Delivery O2 Flow Rate FiO2 02/16/17 13:18 140/51 (80) 02/16/17 12:04 97.4 79 19 187/76 (113) 99 02/16/17 10:09 99 Room Air 02/16/17 08:13 97.8 119 19 149/89 (109) 99 02/16/17 04:00 97.5 109 17 180/76 (110) 100 02/16/17 00:08 97.6 100 17 178/72 (107) 98 02/15/17 20:30 97.6 99 17 163/70 (101) 98 02/15/17 19:38 Room Air 02/15/17 18:24 97.7 101 17 172/73 (106) 99 02/15/17 16:00 92 02/15/17 16:00 98.1 92 17 160/72 (101) 92 02/15/17 15:00 74 02/15/17 14:00 102 31 166/77 (106) 98 02/15/17 14:00 102 I/O 02/15/17 02/15/17 02/15/17 02/16/17 02/16/17 02/16/17 07:00 15:00 23:00 07:00 15:00 23:00 # Voids 1 2 3 # Bowel Movements 1 Laboratory Laboratory Tests Test 02/15/17 17:56 02/16/17 06:43 02/16/17 08:50 Nasal Screen MRSA (PCR) MRSA NOT DETECTED White Blood Count 5.0 Red Blood Count 2.76 Hemoglobin 8.8 Hematocrit 26.3 Mean Corpuscular Volume 95.4 Mean Corpuscular Hemoglobin 31.8 Mean Corpuscular Hemoglobin Concent 33.3 Red Cell Distribution Width 15.1 Platelet Count 290 Mean Platelet Volume 8.1 Neutrophils (%) (Auto) 66.4 Lymphocytes (%) (Auto) 23.4 Monocytes (%) (Auto) 9.6 Eosinophils (%) (Auto) 0.2 Basophils (%) (Auto) 0.4 Neutrophils # (Auto) 3.3 Lymphocytes # (Auto) 1.2 Monocytes # (Auto) 0.5 Eosinophils # (Auto) 0.0 Basophils # (Auto) 0.0 CBC Comment DIFF FINAL Differential Comment Blood Urea Nitrogen 11 Creatinine 0.27 Random Glucose 54 198 Total Protein 6.5 Albumin 2.2 Calcium Level 8.6 Alkaline Phosphatase 72 Aspartate Amino Transf (AST/SGOT) 38 Alanine Aminotransferase (ALT/SGPT) 32 Total Bilirubin 0.3 Sodium Level 146 Potassium Level 3.5 Chloride Level 113 Carbon Dioxide Level 19.4 Anion Gap 14 Estimat Glomerular Filtration Rate 241 Tumor Marker Alpha Fetoprotein 1.1 Carcinoembryonic Antigen 1.3 CA 19-9 Antigen 20.6 Physical Exam HEENT: PERRL; normocephalic; atraumatic; no jaundice. T CHEST: CTA CARDIAC: RRR ABDOMEN: Soft, nondistended, mild RUQ TTP; no hepatosplenomegaly; bowel sounds are present in all four quadrants. EXTREMITIES: No clubbing, cyanosis, or edema. SKIN: Normal; no rash; no jaundice. [employer]INT [employer]ISH[employer] WORKER: No focal deficits; alert and oriented times three. (Komal Reinoso) Assessment and Plan Plan ASSESSMENT - abd pain - 2-3 months. c/o pain in upper and lower quadrants. CT showed progressive dilatation biliary tree consistent with distal CBD obstruction, s/p cholecystectomy has hx chronically dilated CBD and has had elevated LFTs in past, VAMSI pos 1: 80 diffuse pattern, liver w/u in 10/2016 otherwise unremarkable. Hx Guzman's. 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 She had an ERCP . Normal HIDA. ERCP with sphincterotomy and brushign 10/15/16 showed distal CBD stricture, benign. for additional history see our note from 10/18/16 tolerating CLD, some RUQ discomfort but feels better today. no n/v. tumor markers not elevated. MRCP neg. d/w primary - anemia - normocytic hgb 8.7 on admission HH stable - SDH, hygroma, HTN per CCM, neuro following, non op mgmt PLAN - low fat diet - monitor labs - supportive care - further recs to follow This pt seen by myself and Dr Andres and this note is written on his behalf (Komal Reinoso) Physician Comments Patient seen and examined Agree with above Continue with current supportive care Monitor labs The biliary system and has been dilated for a very long time and is documented on prior hospitalizations and it is basically unchanged The abdominal pain has been worked up extensively and all workup has been negative and as a result I favor at this point possibly musculoskeletal pains and would treat symptomatically with pain meds obviously an evaluation by pain management would be very helpful Not much to add from a GI perspective at this point we will sign off (Maxx Andres MD) Komal Reinoso Feb 16, 2017 13:31 Maxx Andres MD Feb 16, 2017 20:26
--- NOTE | 2017-02-16 15:25 | HHI.NSPN ---
(Maya Schreiber) Note Status Status: Progress Note (Maya Schreiber) Interval History Interval History Ms. Matthew is a 81 y/o female who was previously evaluated for subdural hygroma on 01/19/17 and she was managed nonoperatively. She has been readmitted for abdominal pain. A follow up CT Head shows mild acute on chronic subdural hygroma. Neurologically, Ms. Matthew remained alert, stably confused. She moves all four extremities. She denies headaches, focal weakness. 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 She previously underwent a trial of lumbar drain placement with improvement. A neurosurgical evaluation was requested. 02/16: no changes neurologically, friends in room requesting case mgt for dc placement (Maya Schreiber) Labs, Micro, & Vital Signs Results Date Time Temp Pulse Resp B/P (MAP) Pulse Ox O2 Delivery O2 Flow Rate FiO2 02/16/17 13:18 140/51 (80) 02/16/17 12:04 97.4 79 19 187/76 (113) 99 02/16/17 10:09 99 Room Air 02/16/17 08:13 97.8 119 19 149/89 (109) 99 02/16/17 04:00 97.5 109 17 180/76 (110) 100 02/16/17 00:08 97.6 100 17 178/72 (107) 98 02/15/17 20:30 97.6 99 17 163/70 (101) 98 02/15/17 19:38 Room Air 02/15/17 18:24 97.7 101 17 172/73 (106) 99 02/15/17 16:00 92 02/15/17 16:00 98.1 92 17 160/72 (101) 92 Constitutional Vital Signs Date Time Temp Pulse Resp B/P (MAP) Pulse Ox O2 Delivery O2 Flow Rate FiO2 02/16/17 13:18 140/51 (80) 02/16/17 12:04 97.4 79 19 187/76 (113) 99 02/16/17 10:09 99 Room Air 02/16/17 08:13 97.8 119 19 149/89 (109) 99 02/16/17 04:00 97.5 109 17 180/76 (110) 100 02/16/17 00:08 97.6 100 17 178/72 (107) 98 02/15/17 20:30 97.6 99 17 163/70 (101) 98 02/15/17 19:38 Room Air 02/15/17 18:24 97.7 101 17 172/73 (106) 99 02/15/17 16:00 92 02/15/17 16:00 98.1 92 17 160/72 (101) 92 (Maya Schreiber) Review of Systems Constitutional: DENIES: Fever, Chills Neurologic: COMPLAINS OF: Abnormal gait, Tremor (chronic), Poor Balance, DENIES : Headache, Localized weakness (Maya Schreiber) Physical Exam Ms. Matthew is alert, confused, oriented to self. She is conversant in [place]. Resting comfortably in bed in no acute distress. Cranial nerve examination: pupils equal, round, and reactive to light. EOMs are intact with normal convergence. Facial motor function appears normal and symmetrical. Neck is soft and supple. Muscle strength is 5/5 in all muscle groups of both upper and lower extremities. Deep tendon reflexes are 1+ and symmetrical in the biceps, triceps, and brachioradialis, bilaterally, in the upper extremities. In the lower extremities , the patellar and Achilles are 1+, bilaterally. There is a bilateral plantar flexion response. Hoffmanns sign is negative. There is no clonus. Cerebellar examination is limited due to the patient condition, but no obvious deficits are noted. (Maya Schreiber) Ms. Matthew is alert, confused, oriented to self. She is conversant in [place]. Resting comfortably in bed in no acute distress. Cranial nerve examination: pupils equal, round, and reactive to light. EOMs are intact with normal convergence. Facial motor function appears normal and symmetrical. Neck is soft and supple. Muscle strength is 5/5 in all muscle groups of both upper and lower extremities. Deep tendon reflexes are 1+ and symmetrical in the biceps, triceps, and brachioradialis, bilaterally, in the upper extremities. In the lower extremities , the patellar and Achilles are 1+, bilaterally. There is a bilateral plantar flexion response. Hoffmanns sign is negative. There is no clonus. Cerebellar examination is limited due to the patient condition, but no obvious deficits are noted. (Jose L Taveras MD) Medications Current Medications Current Medications Medications (Trade) Dose Ordered Sig/Jordan Route PRN Reason Start Time Stop Time Status Last Admin Dose Admin Sodium Chloride 1,000 ml @ 84 mls/hr [id number] IV 02/14/17 19:14 Future Hold 02/15/17 17:52 Sodium Chloride (NS Flush) 2 ml UNSCH PRN IV FLUSH FLUSH AFTER USING IV ACCESS 02/14/17 19:15 Sodium Chloride (NS Flush) 2 ml BID IV FLUSH 02/14/17 21:00 02/16/17 09:03 Acetaminophen (Tylenol) 650 mg Q6H PRN PO PAIN 1-5 AND/OR FEVER >101F 02/14/17 19:15 02/15/17 05:19 Famotidine (Pepcid Inj) 20 mg Q12HR IV PUSH 02/14/17 21:00 02/16/17 09:03 Ondansetron HCl (Zofran Inj) 4 mg Q6H PRN IV PUSH NAUSEA OR VOMITING 02/14/17 19:15 02/16/17 09:03 Albuterol/ Ipratropium (Duoneb Neb) 1 ampule Q2HR NEB PRN INH WHEEZING 02/14/17 19:15 Miscellaneous Information 1 Q361D XX 02/14/17 19:15 Chlorhexidine Gluconate (Chlorhexidine 2% Cloth) 3 pack Taper DAILY@04 TOP 02/15/17 04:00 02/11/18 03:59 Chlorhexidine Gluconate (Chlorhexidine 2% Cloth) 3 pack UNSCH PRN TOP HYGIENIC CARE 02/14/17 19:15 Senna/Docusate Sodium (Lara-Colace) 1 tab BID PO 02/14/17 21:00 02/15/17 20:41 Magnesium Hydroxide (Milk Of Magnesia Liq) 30 ml Q12H PRN PO Mild constipation 02/14/17 19:15 Sennosides (Senokot) 17.2 mg Q12H PRN PO Moderate constipation 02/14/17 19:15 Bisacodyl (Dulcolax Supp) 10 mg DAILY PRN RECTAL SEVERE CONSITIPATION 02/14/17 19:15 Lactulose (Lactulose Liq) 30 ml DAILY PRN PO SEVERE CONSITIPATION 02/14/17 19:15 Diphenhydramine HCl (Benadryl) 25 mg Q6H PRN PO ITCHING 02/15/17 11:45 02/15/17 20:41 Metoprolol Tartrate (Lopressor) 25 mg Q12HR PO 02/15/17 21:00 02/16/17 09:03 Dextrose (D50w (Vial) Inj) 50 ml UNSCH PRN IV PUSH HYPOGLYCEMIA-SEE COMMENTS 02/16/17 00:45 02/16/17 07:50 Glucagon (Glucagon Inj) 1 mg UNSCH PRN OTHER HYPOGLYCEMIA-SEE COMMENTS 02/16/17 00:45 Insulin Human Regular (NovoLIN R SUPPLEMENTAL SCALE) 1 ACHS SLIDING SCALE SQ 02/16/17 08:00 Morphine Sulfate (Morphine Inj) 2 mg Q2H PRN IV PUSH PAIN SCALE 6 TO 10 02/16/17 07:45 Amlodipine Besylate (Norvasc) 5 mg DAILY PO 02/16/17 09:00 02/16/17 09:09 Enalaprilat (Vasotec Inj) 1.25 mg Q6H PRN IV PUSH SBP>160, DBP>90 02/16/17 13:15 Clonidine (Catapres) 0.1 mg Q6H PRN PO SBP> OR = 180, DBP> OR = 100 02/16/17 13:15 (Maya Schreiber) Medical Decision Making MDM Remarks 81 y/o female with mild acute on chronic bilateral subdural hygroma NPH, previous trial of lumbar drain with improvement, however in view of subdural hematoma, placement 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 Continue neuro check. Nonoperative treatment. Wll reevaluate in future re a possible ROUTE DELIVERY SERVICE DRIVER shunt Pulmonary. Continue aggressive pulmonary toilette, nasotracheal suction, and breathing treatments with nebulizers. Daily PT and OT Nutrition. Tolerating Oral diet Renal. Continue to monitor closely urine output, BUN and creatinine Endocrine. Continue to Monitor serial Acu checks and SSI as needed in detail ID continue to monitor for signs of infection Continue Protonix for stress ulcer prophylaxis Continue Octavio hose and SCD's for DVT prophylaxis Discharge planning The exam, history, and the medical decision-making described in the above note were completed with the assistance of the mid-level provider. I reviewed and agree with the findings presented. I attest that I had a [id number] encounter with the patient on the same day, and personally performed and documented my assessment and findings in the medical record. (Jose L Taveras MD) Maya Schreiber Feb 16, 2017 15:25 Jose L Taveras MD Feb 16, 2017 17:44
[2017-02-17 00:45] VITALS: BP 141/63; PULSE 89; RESP 18; TEMP 98.3; O2SAT 98
[2017-02-17] MEDS: CHLORHEXIDINE GLUCONATE 2 % 1 PACK (2 CLOTHS) TOP SCH (04:00)
[2017-02-17 04:46] VITALS: BP 136/68; PULSE 91; RESP 16; TEMP 97.2; O2SAT 95
[2017-02-17] MEDS: ACETAMINOPHEN 325 MG TAB PO PRN (06:39)
[2017-02-17 07:43] VITALS: BP 169/74; PULSE 86; RESP 18; TEMP 98.2; O2SAT 97
[2017-02-17 07:44] LABS: ALKALINE PHOSPHATASE 60 U/L (45-117); ALT (GPT) 31 U/L (10-53); ANION GAP 8 MEQ/L (5-15); AST (GOT) 41 U/L (15-37); BICARBONATE 25.5 MEQ/L (21.0-32.0); BLOOD UREA NITROGEN 9 MG/DL (7-18); CHLORIDE 110 MEQ/L (98-107); GLOMERULAR FILTRATION RATE 276 ML/MIN (>89); SODIUM (NA) 143 MEQ/L (136-145); TOTAL BILIRUBIN ADULT 0.3 MG/DL (0.2-1.0)
[2017-02-17 08:00] LABS: POTASSIUM 2.6 MEQ/L (3.5-5.1)
[2017-02-17] MEDS: INSULIN NovoLIN REGULAR SUPPLEMENTAL SCALE SQ SCH ×4 (08:00→21:00)
[2017-02-17] MEDS: amLODIPine BESYLATE 5 MG TAB PO SCH (08:54)
[2017-02-17] MEDS: DOCUSATE SODIUM 50 MG/SENNA 8.6 MG TAB PO SCH ×2 (08:54→21:16)
[2017-02-17] MEDS: METOPROLOL TARTRATE 25 MG TAB PO SCH ×2 (08:54→21:17)
[2017-02-17] MEDS: FAMOTIDINE 20 MG/2 ML VIAL IV PUSH SCH ×2 (08:57→21:16)
[2017-02-17] MEDS: SODIUM CHLORIDE 0.9% FLUSH 10 ML FLUSH IV FLUSH SCH ×2 (08:57→21:15)
[2017-02-17] MEDS ORDERED: POTASSIUM CHLORIDE 20 MEQ CONTROLLED RELEASE TAB PO ONE (10:45)
--- NOTE | 2017-02-17 11:26 | HHI.PR ---
Subjective Remarks Pt Feels better. not much abdominal pain 03/15. states she is eating better. RN suggests glucerna. Pt denies any hallucinations. states that 3-4 weeks ago she was "hearing noise in my head" but that has resolved. Objective Vitals Vital Signs Date Time Temp Pulse Resp B/P (MAP) Pulse Ox O2 Delivery O2 Flow Rate FiO2 02/17/17 07:43 98.2 86 18 169/74 (105) 97 02/17/17 04:46 97.2 91 16 136/68 (90) 95 02/17/17 00:45 98.3 89 18 141/63 (89) 98 02/16/17 21:02 98.2 113 18 143/64 (90) 96 02/16/17 16:59 98.1 90 19 146/61 (89) 98 02/16/17 13:18 140/51 (80) 02/16/17 12:04 97.4 79 19 187/76 (113) 99 I/O 02/16/17 02/16/17 02/16/17 02/17/17 02/17/17 02/17/17 07:00 15:00 23:00 07:00 15:00 23:00 # Voids 3 1 # Bowel Movements 1 0 Result Diagram: 02/16/17 0643 02/17/17 0625 Imaging Last Impressions Cholangiopancreatography MRI 02/15/17 0000 Signed Impressions: Service Date/Time: Wednesday, February 15, 2017 16:42 - CONCLUSION: 1. Intra and extrahepatic biliary duct dilatation without discrete evidence of obstructing lesion. 2. Common bile duct measures 1.3 cm in diameter. 3. No evidence of common bile duct stone. Killian Lo MD Head CT 02/14/17 1351 Signed Impressions: Service Date/Time: Tuesday, February 14, 2017 15:54 - CONCLUSION: 1. Small amount of acute hemorrhage in chronic left subdural collection with maximal dimension now measuring 1.7 cm in comparison to 1.3 cm in prior exam. 2. 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 3. No midline shift, hydrocephalus or intra-axial hemorrhage. Rigoberto Reis MD Chest X-Ray 02/14/17 1351 Signed Impressions: Service Date/Time: Tuesday, February 14, 2017 15:11 - CONCLUSION: 1. No acute cardiopulmonary disease. Rigoberto Reis MD Abdomen/Pelvis CT 02/14/17 0000 Signed Impressions: Service Date/Time: Tuesday, February 14, 2017 15:59 - CONCLUSION: 1. Progressive dilatation of the intra-and extrahepatic biliary tree characteristic of a distal common bile duct obstructing process. 2. Status post cholecystectomy. 3. Otherwise stable exam with no other acute abnormalities or interval change. 1. Killian Lo MD Objective Remarks GENERAL: elderly female patient, laying in bed EYES: EOMI NECK: trachea midline CARDIOVASCULAR: Regular rate and rhythm without murmurs RESPIRATORY: Breath sounds equal bilaterally. No accessory muscle use. Lungs sounds are clear to auscultation. GASTROINTESTINAL: Abdomen soft and nondistended. non tender MUSCULOSKELETAL: No edema. NEUROLOGICAL: answers questions appropriately, awake and alert A/P Assessment and Plan Weakness and headaches - Subdural hematoma with small hemorrhagic conversion - Hygroma - Neurosurgical following, Dr. Taveras. Discussed w Dr. Taveras, pt has been cleared for discharge, he would like to see her in the office in 3-4 weeks. Recommends SNF placement. OT consult placed. - Neuro checks per floor protocol. Abdominal pain - Progressive dilatation of the intra-and extrahepatic biliary tree characteristic of a distal common bile duct obstructing process - GI following and MRCP shows intra and extrahepatic biliary duct dilatation without discrete evidence of obstructing lesion. Per GI's note f/u on tumor markers. Might consider endoscopic ultrasound but at this point with the patient having subdural hematoma, it is felt that it isn't the right time to pursue this at this time. - on a low fat diet, GI at this time has signed off. Recommends consult to pain management which pt can do as an outpatient. Pt agreeable w plan. Hypertension - Lopressor IV every 6 hours - Added amlodipine 5mg po daily as BP's not well controlled. History of SVTs - Lopressor DVT GI prophylaxis - Teds SCDs - No pharmacological DVT prophylaxis due to ICH - Pepcid Discharge Planning GI has signed off Discussed w Dr. Taveras, pt has been cleared for discharge, he would like to see her in the office in 3-4 weeks. Recommends SNF placement. OT consult placed. anticipate discharge in AM Pt's K was 2.6, replacing now. Checking Mg level and replace as needed. Elva Garrison MD Feb 17, 2017 11:26
[2017-02-17 11:49] VITALS: BP 140/63; PULSE 80; RESP 17; TEMP 97.7; O2SAT 98
[2017-02-17] MEDS: diphenhydrAMINE HCL 25 MG CAP PO PRN (13:59)
[2017-02-17] MEDS: MAGNESIUM SULFATE 1 GM PREMIX 100 ML IV SCH ×2 (14:22→21:15)
--- NOTE | 2017-02-17 15:12 | HHI.NSPN ---
(Maya Schreiber) Note Status Status: Progress Note (Maya Schreiber) Interval History Interval History Ms. Matthew is a 81 y/o female who was previously evaluated for subdural hygroma on 01/19/17 and she was managed nonoperatively. She has been readmitted for abdominal pain. A follow up CT Head shows mild acute on chronic subdural hygroma. Neurologically, Ms. Matthew remained alert, stably confused. She moves all four extremities. She denies headaches, focal weakness. 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 She previously underwent a trial of lumbar drain placement with improvement. A neurosurgical evaluation was requested. 02/16: no changes neurologically, friends in room requesting case mgt for dc placement 02/17: c/o abdominal pain, denies headaches, seizures. (Maya Schreiber) Labs, Micro, & Vital Signs Results Date Time Temp Pulse Resp B/P (MAP) Pulse Ox O2 Delivery O2 Flow Rate FiO2 02/17/17 11:49 97.7 80 17 140/63 (88) 98 02/17/17 07:43 98.2 86 18 169/74 (105) 97 02/17/17 04:46 97.2 91 16 136/68 (90) 95 02/17/17 00:45 98.3 89 18 141/63 (89) 98 02/16/17 21:02 98.2 113 18 143/64 (90) 96 02/16/17 16:59 98.1 90 19 146/61 (89) 98 Constitutional Vital Signs Date Time Temp Pulse Resp B/P (MAP) Pulse Ox O2 Delivery O2 Flow Rate FiO2 02/17/17 11:49 97.7 80 17 140/63 (88) 98 02/17/17 07:43 98.2 86 18 169/74 (105) 97 02/17/17 04:46 97.2 91 16 136/68 (90) 95 02/17/17 00:45 98.3 89 18 141/63 (89) 98 02/16/17 21:02 98.2 113 18 143/64 (90) 96 02/16/17 16:59 98.1 90 19 146/61 (89) 98 (Maya Schreiber) Review of Systems Gastrointestinal: COMPLAINS OF: Abdominal pain Neurologic: DENIES: Headache (Maya Schreiber) Physical Exam Ms. Matthew is alert, confused, oriented to self. She is conversant in [place]. Resting comfortably in bed in no acute distress. Cranial nerve examination: pupils equal, round, and reactive to light. EOMs are intact with normal convergence. Facial motor function appears normal and symmetrical. Neck is soft and supple. Muscle strength is 5/5 in all muscle groups of both upper and lower extremities. Deep tendon reflexes are 1+ and symmetrical in the biceps, triceps, and brachioradialis, bilaterally, in the upper extremities. In the lower extremities , the patellar and Achilles are 1+, bilaterally. There is a bilateral plantar flexion response. Hoffmanns sign is negative. There is no clonus. Cerebellar examination is limited due to the patient condition, but no obvious deficits are noted. (Maya Schreiber) Ms. Matthew is alert, confused, oriented to self. She is conversant in [place]. Resting comfortably in bed in no acute distress. Cranial nerve examination: pupils equal, round, and reactive to light. EOMs are intact with normal convergence. Facial motor function appears normal and symmetrical. Neck is soft and supple. Muscle strength is 5/5 in all muscle groups of both upper and lower extremities. Deep tendon reflexes are 1+ and symmetrical in the biceps, triceps, and brachioradialis, bilaterally, in the upper extremities. In the lower extremities , the patellar and Achilles are 1+, bilaterally. There is a bilateral plantar flexion response. Hoffmanns sign is negative. There is no clonus. Cerebellar examination is limited due to the patient condition, but no obvious deficits are noted. (Jose L Taveras MD) Medications Current Medications Current Medications Medications (Trade) Dose Ordered Sig/Jordan Route PRN Reason Start Time Stop Time Status Last Admin Dose Admin Sodium Chloride 1,000 ml @ 84 mls/hr [id number] IV 02/14/17 19:14 Future Hold 02/15/17 17:52 Sodium Chloride (NS Flush) 2 ml UNSCH PRN IV FLUSH FLUSH AFTER USING IV ACCESS 02/14/17 19:15 Sodium Chloride (NS Flush) 2 ml BID IV FLUSH 02/14/17 21:00 02/17/17 08:57 Acetaminophen (Tylenol) 650 mg Q6H PRN PO PAIN 1-5 AND/OR FEVER >101F 02/14/17 19:15 02/17/17 06:39 Famotidine (Pepcid Inj) 20 mg Q12HR IV PUSH 02/14/17 21:00 02/17/17 08:57 Ondansetron HCl (Zofran Inj) 4 mg Q6H PRN IV PUSH NAUSEA OR VOMITING 02/14/17 19:15 02/16/17 09:03 Albuterol/ Ipratropium (Duoneb Neb) 1 ampule Q2HR NEB PRN INH WHEEZING 02/14/17 19:15 Miscellaneous Information 1 Q361D XX 02/14/17 19:15 Chlorhexidine Gluconate (Chlorhexidine 2% Cloth) 3 pack Taper DAILY@04 TOP 02/15/17 04:00 02/11/18 03:59 Chlorhexidine Gluconate (Chlorhexidine 2% Cloth) 3 pack UNSCH PRN TOP HYGIENIC CARE 02/14/17 19:15 Senna/Docusate Sodium (Lara-Colace) 1 tab BID PO 02/14/17 21:00 02/17/17 08:54 Magnesium Hydroxide (Milk Of Magnesia Liq) 30 ml Q12H PRN PO Mild constipation 02/14/17 19:15 Sennosides (Senokot) 17.2 mg Q12H PRN PO Moderate constipation 02/14/17 19:15 Bisacodyl (Dulcolax Supp) 10 mg DAILY PRN RECTAL SEVERE CONSITIPATION 02/14/17 19:15 Lactulose (Lactulose Liq) 30 ml DAILY PRN PO SEVERE CONSITIPATION 02/14/17 19:15 Diphenhydramine HCl (Benadryl) 25 mg Q6H PRN PO ITCHING 02/15/17 11:45 02/17/17 13:59 Metoprolol Tartrate (Lopressor) 25 mg Q12HR PO 02/15/17 21:00 02/17/17 08:54 Dextrose (D50w (Vial) Inj) 50 ml UNSCH PRN IV PUSH HYPOGLYCEMIA-SEE COMMENTS 02/16/17 00:45 02/16/17 07:50 Glucagon (Glucagon Inj) 1 mg UNSCH PRN OTHER HYPOGLYCEMIA-SEE COMMENTS 02/16/17 00:45 Insulin Human Regular (NovoLIN R SUPPLEMENTAL SCALE) 1 ACHS SLIDING SCALE SQ 02/16/17 08:00 02/17/17 12:00 Morphine Sulfate (Morphine Inj) 2 mg Q2H PRN IV PUSH PAIN SCALE 6 TO 10 02/16/17 07:45 Amlodipine Besylate (Norvasc) 5 mg DAILY PO 02/16/17 09:00 02/17/17 08:54 Enalaprilat (Vasotec Inj) 1.25 mg Q6H PRN IV PUSH SBP>160, DBP>90 02/16/17 13:15 Clonidine (Catapres) 0.1 mg Q6H PRN PO SBP> OR = 180, DBP> OR = 100 02/16/17 13:15 Acetaminophen/ Hydrocodone Bitart (Trenary 5-325 Mg) 1 tab Q6H PRN PO PAIN SCALE 6 TO 10 02/17/17 10:45 (Maya Schreiber) Current Medications Current Medications Sodium Chloride (NS Flush) 2 ml UNSCH PRN IVF FLUSH AFTER USING IV ACCESS; Start 02/14/17 at 14:00; Stop 02/14/17 at 19:23; Status DC Sodium Chloride 1,000 ml @ 1,000 mls/hr Q1H ONCE IV Last administered on 02/14 15:24; Start 02/14/17 at 13:51; Stop 02/14/17 at 14:50; Status DC Ondansetron HCl (Zofran Inj) 4 mg ONCE ONCE IV PUSH Last administered on 02/14 15:24; Start 02/14/17 at 14:00; Stop 02/14/17 at 14:02; Status DC Pantoprazole Sodium (Protonix Inj) 40 mg ONCE ONCE IV PUSH Last administered on 02/14/17 15:24; Start 02/14/17 at 14:00; Stop 02/14/17 at 14:02; Status DC Sodium Chloride 1,000 ml @ 84 mls/hr [id number] IV Last administered on 17:52; Start 02/14/17 at 19:14; Status Future Hold Sodium Chloride (NS Flush) 2 ml UNSCH PRN IV FLUSH FLUSH AFTER USING IV ACCESS ; Start 02/14/17 at 19:15 Sodium Chloride (NS Flush) 2 ml BID IV FLUSH Last administered on 02/17/17 08 :57; Start 02/14/17 at 21:00 Acetaminophen (Tylenol) 650 mg Q6H PRN PO PAIN 1-5 AND/OR FEVER >101F Last administered on 02/17/17 06:39; Start 02/14/17 at 19:15 Morphine Sulfate (Morphine Inj) 2 mg Q2H PRN IV PUSH PAIN SCALE 6 TO 10; Start 02/14/17 at 19:15; Stop 02/16/17 at 07:30; Status DC Famotidine (Pepcid Inj) 20 mg Q12HR IV PUSH Last administered on 02/17/17 08: 57; Start 02/14/17 at 21:00 Ondansetron HCl (Zofran Inj) 4 mg Q6H PRN IV PUSH NAUSEA OR VOMITING Last administered on 02/16/17 09:03; Start 02/14/17 at 19:15 Albuterol/ Ipratropium (Duoneb Neb) 1 ampule Q2HR NEB PRN INH WHEEZING; Start 02/14/17 at 19:15 Miscellaneous Information 1 Q361D XX ; Start 02/14/17 at 19:15 Chlorhexidine Gluconate (Chlorhexidine 2% Cloth) 3 pack Taper DAILY@04 TOP ; Start 02/15/17 at 04:00; Stop 02/11/18 at 03:59 Chlorhexidine Gluconate (Chlorhexidine 2% Cloth) 3 pack UNSCH PRN TOP HYGIENIC CARE; Start 02/14/17 at 19:15 Senna/Docusate Sodium (Lara-Colace) 1 tab BID PO Last administered on 08:54; Start 02/14/17 at 21:00 Magnesium Hydroxide (Milk Of Magnesia Liq) 30 ml Q12H PRN PO Mild constipation ; Start 02/14/17 at 19:15 Sennosides (Senokot) 17.2 mg Q12H PRN PO Moderate constipation; Start at 19:15 Bisacodyl (Dulcolax Supp) 10 mg DAILY PRN RECTAL SEVERE CONSITIPATION; Start 02/14/17 at 19:15 Lactulose (Lactulose Liq) 30 ml DAILY PRN PO SEVERE CONSITIPATION; Start 02/14 at 19:15 Metoprolol Tartrate (Lopressor Inj) 5 mg Q6H IV PUSH Last administered on 02/15 13:53; Start 02/14/17 at 19:30; Stop 02/15/17 at 20:28; Status DC Diphenhydramine HCl (Benadryl) 25 mg Q6H PRN PO ITCHING Last administered on 13:59; Start 02/15/17 at 11:45 Metoprolol Tartrate (Lopressor) 25 mg Q12HR PO Last administered on 02/17/17 08:54; Start 02/15/17 at 21:00 Dextrose (D50w (Vial) Inj) 50 ml UNSCH PRN IV PUSH HYPOGLYCEMIA-SEE COMMENTS Last administered on 02/16/17 07:50; Start 02/16/17 at 00:45 Glucagon (Glucagon Inj) 1 mg UNSCH PRN OTHER HYPOGLYCEMIA-SEE COMMENTS; Start 02/16/17 at 00:45 Insulin Human Regular (NovoLIN R SUPPLEMENTAL SCALE) 1 ACHS SLIDING SCALE SQ Last administered on 02/17/17 12:00; Start 02/16/17 at 08:00 Enalaprilat (Vasotec Inj) 2.5 mg ONCE ONCE IV PUSH Last administered on 06:15; Start 02/16/17 at 06:15; Stop 02/16/17 at 06:40; Status DC Morphine Sulfate (Morphine Inj) 2 mg Q2H PRN IV PUSH PAIN SCALE 6 TO 10; Start 02/16/17 at 07:45 Amlodipine Besylate (Norvasc) 5 mg DAILY PO Last administered on 02/17/17 08: 54; Start 02/16/17 at 09:00 Enalaprilat (Vasotec Inj) 1.25 mg Q6H PRN IV PUSH SBP>160, DBP>90; Start 02/16 at 13:15 Clonidine (Catapres) 0.1 mg Q6H PRN PO SBP> OR = 180, DBP> OR = 100; Start at 13:15 Iohexol (Omnipaque 350 Inj) 80 ml STK-MED ONCE IVCONTRAST Last administered on 02/14/17 15:19; Start 02/14/17 at 15:19; Stop 02/16/17 at 15:04; Status DC Potassium Chloride (KCl) 60 meq ONCE ONCE PO Last administered on 02/17/17 11:05; Start 02/17/17 at 10:45; Stop 02/17/17 at 10:46; Status DC Acetaminophen/ Hydrocodone Bitart (Trenary 5-325 Mg) 1 tab Q6H PRN PO PAIN SCALE 6 TO 10; Start 02/17/17 at 10:45 Magnesium Sulfate/ Dextrose 100 ml @ 100 mls/hr Q1H IV Last administered on 14:22; Start 02/17/17 at 13:00; Stop 02/17/17 at 15:06; Status DC (Jose L Taveras MD) Medical Decision Making MDM Remarks 81 y/o female with mild acute on chronic bilateral subdural hygroma NPH, previous trial of lumbar drain with improvement, however in view of subdural hematoma, placement of VFX ARTIST shunt may increase risk of further worsening (Maya Schreiber) Plan Plan Remarks cont nonoperative mg of b/l subdural hygroma cont serial neuro checks cont medical mgt Physical Therapy ok to dc from NRS standpoint once medically cleared (Maya Schreiber) Attending Statement She is stable for discharge. She may not be safe to be discharged home. Recommend occupational therapy evaluation and arthrodesis position. Discussing with Dr. Nielson The exam, history, and the medical decision-making described in the above note were completed with the assistance of the mid-level provider. I reviewed and agree with the findings presented. I attest that I had a [id number] encounter with the patient on the same day, and personally performed and documented my assessment and findings in the medical record. (Jose L Taveras MD) Maya Schreiber Feb 17, 2017 15:11 Jose L Taveras MD Feb 17, 2017 17:15
[2017-02-17 15:47] VITALS: BP 122/58; PULSE 69; RESP 18; TEMP 98; O2SAT 98
[2017-02-17] MEDS ORDERED: MAGNESIUM SULFATE 1 GM PREMIX 100 ML IV ONE (20:15)
[2017-02-17 20:44] VITALS: BP 118/81; PULSE 82; RESP 18; TEMP 97.5; O2SAT 99
[2017-02-18 00:24] VITALS: BP 129/70; PULSE 82; RESP 16; TEMP 97.9; O2SAT 99
[2017-02-18] MEDS: CHLORHEXIDINE GLUCONATE 2 % 1 PACK (2 CLOTHS) TOP SCH (02:33)
[2017-02-18 05:50] VITALS: BP 124/64; PULSE 86; RESP 18; TEMP 97.7; O2SAT 99
[2017-02-18] MEDS: INSULIN NovoLIN REGULAR SUPPLEMENTAL SCALE SQ SCH ×4 (07:44→21:00)
[2017-02-18 08:00] VITALS: BP 133/69; PULSE 86; RESP 17; TEMP 96.3; O2SAT 100
[2017-02-18] MEDS: DOCUSATE SODIUM 50 MG/SENNA 8.6 MG TAB PO SCH ×2 (08:18→20:18)
[2017-02-18] MEDS: METOPROLOL TARTRATE 25 MG TAB PO SCH ×2 (08:18→20:18)
[2017-02-18] MEDS: amLODIPine BESYLATE 5 MG TAB PO SCH (08:18)
[2017-02-18] MEDS: SODIUM CHLORIDE 0.9% FLUSH 10 ML FLUSH IV FLUSH SCH ×2 (08:19→20:18)
[2017-02-18] MEDS: FAMOTIDINE 20 MG/2 ML VIAL IV PUSH SCH ×2 (08:19→20:18)
[2017-02-18 12:00] VITALS: BP 154/70; PULSE 76; RESP 18; TEMP 97.7; O2SAT 97
[2017-02-18 16:00] VITALS: BP 148/68; PULSE 75; RESP 18; TEMP 97.5; O2SAT 98
[2017-02-18] MEDS: ACETAMINOPHEN 325 MG TAB PO PRN (17:07)
[2017-02-18 17:10] LABS: MAGNESIUM 1.6 MG/DL (1.5-2.5); POTASSIUM 3.8 MEQ/L (3.5-5.1)
--- NOTE | 2017-02-18 19:37 | HHI.PR ---
Subjective Remarks Patient is not oriented to month or year, so she is an unreliable historian. She is afraid that her daughter who has Down's Syndrome will not fare well without her at home. But she is unable to go home due to her mental state following subdural hemorrhage Objective Vital Signs Date Time Temp Pulse Resp B/P (MAP) Pulse Ox O2 Delivery O2 Flow Rate FiO2 02/18/17 16:00 97.5 75 18 148/68 (94) 98 02/18/17 12:00 97.7 76 18 154/70 (98) 97 02/18/17 08:00 96.3 86 17 133/69 (90) 100 Manual Cuff/Auscultation 02/18/17 05:50 97.7 86 18 124/64 (84) 99 02/18/17 00:24 97.9 82 16 129/70 (89) 99 02/17/17 20:44 97.5 82 18 118/81 (93) 99 I/O 02/17/17 02/17/17 02/17/17 02/18/17 02/18/17 02/18/17 07:00 15:00 23:00 07:00 15:00 23:00 Intake Total 480 ml Balance 480 ml Intake Oral 480 ml # Voids 1 3 2 3 # Bowel Movements 0 0 1 Result Diagram: 02/16/17 0643 02/18/17 1600 Objective Remarks GENERAL: Well-nourished, well-developed elderly patient. SKIN: Warm and dry. HEAD: Normocephalic. EYES: No scleral icterus. No injection or drainage. NECK: Supple, trachea midline. No JVD or lymphadenopathy. CARDIOVASCULAR: Regular rate and rhythm without murmurs, gallops, or rubs. RESPIRATORY: Breath sounds equal bilaterally. No accessory muscle use. GASTROINTESTINAL: Abdomen soft, non-tender, nondistended. MUSCULOSKELETAL: No cyanosis, or edema. BACK: Nontender without obvious deformity. No CVA tenderness. EXTREMITIES: no edema, no pain Assessment and Plan Problem List: (1) Subdural hemorrhage ICD Codes: I62.00 - Nontraumatic subdural hemorrhage, unspecified Status: Acute (2) Altered mental status ICD Codes: R41.82 - Altered mental status, unspecified Assessment and Plan Subdural hematoma with small hemorrhagic conversion - weakness, headaches and confusion led to admission - Hygroma - Neurosurgical following, Dr. Taveras. Discussed w Dr. Taveras, pt has been cleared for discharge, he would like to see her in the office in 3-4 weeks. Recommends SNF placement. OT consult placed. - Neuro checks per floor protocol. Abdominal pain - Progressive dilatation of the intra-and extrahepatic biliary tree characteristic of a distal common bile duct obstructing process - Work up for a later date due to complexity of current neurological condition - on a low fat diet, GI at this time has signed off. Hypokalemia with hypomagnesemia - both resolved with replacement Hypertension w/ history of SVT - Lopressor IV every 6 hours - Added amlodipine 5mg po daily DVT GI prophylaxis - Teds SCDs - No pharmacological DVT prophylaxis due to ICH - Pepcid Discharge Planning GI has signed off Discussed w Dr. Taveras, pt has been cleared for discharge, he would like to see her in the office in 3-4 weeks. Recommends SNF placement. OT consult placed. Discharge tomorrow morning, will inform family. Ricardo Nichols MD Feb 18, 2017 19:37
[2017-02-18] MEDS: diphenhydrAMINE HCL 25 MG CAP PO PRN (20:18)
[2017-02-18 20:30] VITALS: BP 129/66; PULSE 86; RESP 18; TEMP 98.1; O2SAT 100
[2017-02-19] VITALS: BP 125/65; PULSE 80; RESP 18; TEMP 98.9; O2SAT 99
[2017-02-19] MEDS: CHLORHEXIDINE GLUCONATE 2 % 1 PACK (2 CLOTHS) TOP SCH (04:00)
[2017-02-19 04:30] VITALS: BP 130/67; PULSE 75; RESP 17; TEMP 98.4; O2SAT 99
[2017-02-19] MEDS: INSULIN NovoLIN REGULAR SUPPLEMENTAL SCALE SQ SCH ×4 (07:36→21:00)
[2017-02-19 08:00] VITALS: BP 160/71; PULSE 95; RESP 18; TEMP 98; O2SAT 97
[2017-02-19] MEDS: amLODIPine BESYLATE 5 MG TAB PO SCH (08:01)
[2017-02-19] MEDS: FAMOTIDINE 20 MG/2 ML VIAL IV PUSH SCH ×2 (08:01→21:00)
[2017-02-19] MEDS: METOPROLOL TARTRATE 25 MG TAB PO SCH ×2 (08:01→21:42)
[2017-02-19] MEDS: DOCUSATE SODIUM 50 MG/SENNA 8.6 MG TAB PO SCH ×2 (08:02→21:42)
[2017-02-19] MEDS: SODIUM CHLORIDE 0.9% FLUSH 10 ML FLUSH IV FLUSH SCH ×2 (08:02→21:00)
[2017-02-19 12:00] VITALS: BP 161/84; PULSE 81; RESP 18; TEMP 98.3; O2SAT 98
[2017-02-19 14:00] VITALS: O2SAT 99
[2017-02-19] MEDS ORDERED: AMLO5 PO (14:33)
--- NOTE | 2017-02-19 14:42 | HHI.DS ---
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 Patient states she's been having headaches and abdominal pain for several months. She was recently discharged from here January 19, 2017. She was complaining the same epigastric pain that she is presenting with now. She was in rehabilitation for 2 weeks. She has not taken any prescribed medications since being in a rehabilitation for 2 weeks. The patient states that she is falling multiple times per day. She has not been eating or drinking. She has also had significant weight loss. 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 Her pain is located in her lower abdomen and epigastric region, 8 out of 10, nonradiating, throbbing. Patient denies exacerbating or alleviating factors. She reports associated nausea, but no vomiting. No diarrhea or constipation. No blood in her stool. CT of the head done in the emergency department shows small bleed in the left chronic subdural hematoma as well as a small increase in size of chronic hygroma. CBC/BMP: 02/16/17 0643 02/18/17 1600 Significant Findings Laboratory Tests Test 02/17/17 06:25 02/18/17 16:00 Creatinine 0.24 MG/DL (0.50-1.00) Total Protein 5.7 GM/DL (6.4-8.2) Albumin 1.9 GM/DL (3.4-5.0) Calcium Level 8.3 MG/DL (8.5-10.1) Aspartate Amino Transf (AST/SGOT) 41 U/L (15-37) Potassium Level 2.6 MEQ/L (3.5-5.1) Chloride Level 110 MEQ/L (98-107) Magnesium Level 1.3 MG/DL (1.5-2.5) PE at Discharge GENERAL: elderly female patient, laying in bed EYES: EOMI NECK: trachea midline CARDIOVASCULAR: Regular rate and rhythm without murmurs RESPIRATORY: Breath sounds equal bilaterally. No accessory muscle use. Lungs sounds are clear to auscultation. GASTROINTESTINAL: Abdomen soft and nondistended. non tender MUSCULOSKELETAL: No edema. NEUROLOGICAL: answers questions appropriately, awake and alert Hospital Course Mrs. Matthew is Alert and oriented to year, month and president today. She is ambulatory and eager to go to her house. She does not wish to go to a rehab center. Pt Condition on Discharge: Good Discharge Disposition: Disch w/ Home Health Serv Discharge Time: > 30 minutes Discharge Instructions DIET: Follow Instructions for: As Tolerated, No Restrictions Speech Therapy-Diet Recommends: Regular Additional Diet Instructions: Avoid Aspirin Activities you can perform: See Additionl Instruction Other Activity Instructions: Ambulate with walker until PT clears. No driving. Ricardo Nichols MD Feb 19, 2017 14:42
[2017-02-19] MEDS ORDERED: WALKER/ADULT/FO1 MIS (15:05)
--- NOTE | 2017-02-19 15:07 | HHI.FF ---
Face to Face Verification Diagnosis: (1) Subdural hemorrhage (2) Altered mental status Physical Therapy Order: Evaluate and Treat Occupational Therapy Order: Evaluate and Treat Home Health Nursing Order: Medical education I have seen patient Janina Matthew on 02/19/17. My clinical findings support the need for the requested home health care services because: Ltd mobility - disease progression Deconditioned w/ increased weakness Impaired cognition/judgement High risk of falls I certify that my clinical findings support that this patient is homebound because: Impaired cognitive ability/safety Unsteady gait/balance Ricardo Nichols MD Feb 19, 2017 15:07
[2017-02-19] MEDS: ACETAMINOPHEN/HYDROcodone 325 MG/5 MG TAB PO PRN (21:42)
[2017-02-19 22:30] VITALS: BP 130/65; PULSE 65; RESP 19; TEMP 98.1; O2SAT 96
[2017-02-20 01:30] VITALS: BP 125/68; PULSE 66; RESP 20; TEMP 98.8; O2SAT 97
[2017-02-20] MEDS: CHLORHEXIDINE GLUCONATE 2 % 1 PACK (2 CLOTHS) TOP SCH (03:27)
[2017-02-20 05:48] VITALS: BP 120/58; PULSE 69; RESP 19; TEMP 97.6; O2SAT 97
[2017-02-20] MEDS: INSULIN NovoLIN REGULAR SUPPLEMENTAL SCALE SQ SCH ×2 (08:00→12:00)
[2017-02-20 08:21] VITALS: BP 186/63; PULSE 77; RESP 20; TEMP 98.2; O2SAT 100
[2017-02-20] MEDS: DOCUSATE SODIUM 50 MG/SENNA 8.6 MG TAB PO SCH (08:39)
[2017-02-20] MEDS: ACETAMINOPHEN/HYDROcodone 325 MG/5 MG TAB PO PRN (08:39)
[2017-02-20] MEDS: amLODIPine BESYLATE 5 MG TAB PO SCH (08:39)
[2017-02-20] MEDS: METOPROLOL TARTRATE 25 MG TAB PO SCH (08:39)
[2017-02-20] MEDS: FAMOTIDINE 20 MG/2 ML VIAL IV PUSH SCH (08:40)
[2017-02-20] MEDS: SODIUM CHLORIDE 0.9% FLUSH 10 ML FLUSH IV FLUSH SCH (08:43)
[2017-02-20] MEDS ORDERED: ONDANSETRON ODT 4 MG TAB PO ONE (11:30)
[2017-02-20 12:39] VITALS: BP 140/63; PULSE 96; RESP 20; TEMP 98.3; O2SAT 98
--- NOTE | 2017-02-20 16:27 | HHI.NSPN ---
Note Status Status: Progress Note Interval History Interval History Ms. Matthew is a 81 y/o female who was previously evaluated for subdural hygroma on 01/19/17 and she was managed nonoperatively. She has been readmitted for abdominal pain. A follow up CT Head shows mild acute on chronic subdural hygroma. Neurologically, Ms. Mtathew remained alert, stably confused. She moves all four extremities. She denies headaches, focal weakness. 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 She previously underwent a trial of lumbar drain placement with improvement. A neurosurgical evaluation was requested. 02/16: no changes neurologically, friends in room requesting case mgt for dc placement 02/17: c/o abdominal pain, denies headaches, seizures. 02/20. Neurologically stable. At baseline Labs, Micro, & Vital Signs Results Date Time Temp Pulse Resp B/P (MAP) Pulse Ox O2 Delivery O2 Flow Rate FiO2 02/20/17 12:39 98.3 96 20 140/63 (88) 98 02/20/17 08:21 98.2 77 20 186/63 (104) 100 02/20/17 05:48 97.6 69 19 120/58 (78) 97 02/20/17 01:30 98.8 66 20 125/68 (87) 97 02/19/17 22:48 18 02/19/17 22:30 98.1 65 19 130/65 (86) 96 Constitutional Vital Signs Date Time Temp Pulse Resp B/P (MAP) Pulse Ox O2 Delivery O2 Flow Rate FiO2 02/20/17 12:39 98.3 96 20 140/63 (88) 98 02/20/17 08:21 98.2 77 20 186/63 (104) 100 02/20/17 05:48 97.6 69 19 120/58 (78) 97 02/20/17 01:30 98.8 66 20 125/68 (87) 97 02/19/17 22:48 18 02/19/17 22:30 98.1 65 19 130/65 (86) 96 Physical Exam Ms. Matthew is alert She is conversant in [place]. Resting comfortably in bed in no acute distress. Cranial nerve examination: pupils equal, round, and reactive to light. EOMs are intact with normal convergence. Facial motor function appears normal and symmetrical. Neck is soft and supple. Muscle strength is 5/5 in all muscle groups of both upper and lower extremities. Deep tendon reflexes are 1+ and symmetrical in the biceps, triceps, and brachioradialis, bilaterally, in the upper extremities. In the lower extremities , the patellar and Achilles are 1+, bilaterally. There is a bilateral plantar flexion response. Hoffmanns sign is negative. There is no clonus. Cerebellar examination is limited due to the patient condition, but no obvious deficits are noted. Medications Current Medications Current Medications Sodium Chloride (NS Flush) 2 ml UNSCH PRN IVF FLUSH AFTER USING IV ACCESS; Start 02/14/17 at 14:00; Stop 02/14/17 at 19:23; Status DC Sodium Chloride 1,000 ml @ 1,000 mls/hr Q1H ONCE IV Last administered on 02/14 15:24; Start 02/14/17 at 13:51; Stop 02/14/17 at 14:50; Status DC Ondansetron HCl (Zofran Inj) 4 mg ONCE ONCE IV PUSH Last administered on 02/14 15:24; Start 02/14/17 at 14:00; Stop 02/14/17 at 14:02; Status DC Pantoprazole Sodium (Protonix Inj) 40 mg ONCE ONCE IV PUSH Last administered on 02/14/17 15:24; Start 02/14/17 at 14:00; Stop 02/14/17 at 14:02; Status DC Sodium Chloride 1,000 ml @ 84 mls/hr [id number] IV Last administered on 17:52; Start 02/14/17 at 19:14; Stop 02/20/17 at 13:56; Status DC Sodium Chloride (NS Flush) 2 ml UNSCH PRN IV FLUSH FLUSH AFTER USING IV ACCESS ; Start 02/14/17 at 19:15; Stop 02/20/17 at 13:56; Status DC Sodium Chloride (NS Flush) 2 ml BID IV FLUSH Last administered on 02/19/17 08 :02; Start 02/14/17 at 21:00; Stop 02/20/17 at 13:56; Status DC Acetaminophen (Tylenol) 650 mg Q6H PRN PO PAIN 1-5 AND/OR FEVER >101F Last administered on 02/18/17 17:07; Start 02/14/17 at 19:15; Stop 02/20/17 at 13 :56; Status DC Morphine Sulfate (Morphine Inj) 2 mg Q2H PRN IV PUSH PAIN SCALE 6 TO 10; Start 02/14/17 at 19:15; Stop 02/16/17 at 07:30; Status DC Famotidine (Pepcid Inj) 20 mg Q12HR IV PUSH Last administered on 02/19/17 08: 01; Start 02/14/17 at 21:00; Stop 02/20/17 at 13:56; Status DC Ondansetron HCl (Zofran Inj) 4 mg Q6H PRN IV PUSH NAUSEA OR VOMITING Last administered on 02/16/17 09:03; Start 02/14/17 at 19:15; Stop 02/20/17 at 13 :56; Status DC Albuterol/ Ipratropium (Duoneb Neb) 1 ampule Q2HR NEB PRN INH WHEEZING; Start 02/14/17 at 19:15; Stop 02/20/17 at 13:56; Status DC Miscellaneous Information 1 [id number] XX ; Start 02/14/17 at 19:15; Stop 02/20/17 at 13:56; Status DC Chlorhexidine Gluconate (Chlorhexidine 2% Cloth) Taper DAILY@04 TOP ; Start at 04:00; Stop 02/20/17 at 13:56; Status DC Chlorhexidine Gluconate (Chlorhexidine 2% Cloth) 3 pack UNSCH PRN TOP HYGIENIC CARE; Start 02/14/17 at 19:15; Stop 02/20/17 at 13:56; Status DC Senna/Docusate Sodium (Lara-Colace) 1 tab BID PO Last administered on 08:39; Start 02/14/17 at 21:00; Stop 02/20/17 at 13:56; Status DC Magnesium Hydroxide (Milk Of Magnesia Liq) 30 ml Q12H PRN PO Mild constipation ; Start 02/14/17 at 19:15; Stop 02/20/17 at 13:56; Status DC Sennosides (Senokot) 17.2 mg Q12H PRN PO Moderate constipation; Start at 19:15; Stop 02/20/17 at 13:56; Status DC Bisacodyl (Dulcolax Supp) 10 mg DAILY PRN RECTAL SEVERE CONSITIPATION; Start 02/14/17 at 19:15; Stop 02/20/17 at 13:56; Status DC Lactulose (Lactulose Liq) 30 ml DAILY PRN PO SEVERE CONSITIPATION; Start 02/14 at 19:15; Stop 02/20/17 at 13:56; Status DC Metoprolol Tartrate (Lopressor Inj) 5 mg Q6H IV PUSH Last administered on 02/15 13:53; Start 02/14/17 at 19:30; Stop 02/15/17 at 20:28; Status DC Diphenhydramine HCl (Benadryl) 25 mg Q6H PRN PO ITCHING Last administered on 20:18; Start 02/15/17 at 11:45; Stop 02/20/17 at 13:56; Status DC Metoprolol Tartrate (Lopressor) 25 mg Q12HR PO Last administered on 02/20/17 08:39; Start 02/15/17 at 21:00; Stop 02/20/17 at 13:56; Status DC Dextrose (D50w (Vial) Inj) 50 ml UNSCH PRN IV PUSH HYPOGLYCEMIA-SEE COMMENTS Last administered on 02/16/17 07:50; Start 02/16/17 at 00:45; Stop 02/20/17 at 13:56; Status DC Glucagon (Glucagon Inj) 1 mg UNSCH PRN OTHER HYPOGLYCEMIA-SEE COMMENTS; Start 02/16/17 at 00:45; Stop 02/20/17 at 13:56; Status DC Insulin Human Regular (NovoLIN R SUPPLEMENTAL SCALE) 1 ACHS SLIDING SCALE SQ Last administered on 02/17/17 12:00; Start 02/16/17 at 08:00; Stop 02/20/17 at 13:56; Status DC Enalaprilat (Vasotec Inj) 2.5 mg ONCE ONCE IV PUSH Last administered on 06:15; Start 02/16/17 at 06:15; Stop 02/16/17 at 06:40; Status DC Morphine Sulfate (Morphine Inj) 2 mg Q2H PRN IV PUSH PAIN SCALE 6 TO 10; Start 02/16/17 at 07:45; Stop 02/20/17 at 13:56; Status DC Amlodipine Besylate (Norvasc) 5 mg DAILY PO Last administered on 02/20/17 08: 39; Start 02/16/17 at 09:00; Stop 02/20/17 at 13:56; Status DC Enalaprilat (Vasotec Inj) 1.25 mg Q6H PRN IV PUSH SBP>160, DBP>90; Start 02/16 at 13:15; Stop 02/20/17 at 13:56; Status DC Clonidine (Catapres) 0.1 mg Q6H PRN PO SBP> OR = 180, DBP> OR = 100; Start at 13:15; Stop 02/20/17 at 13:56; Status DC Iohexol (Omnipaque 350 Inj) 80 ml STK-MED ONCE IVCONTRAST Last administered on 02/14/17 15:19; Start 02/14/17 at 15:19; Stop 02/16/17 at 15:04; Status DC Potassium Chloride (KCl) 60 meq ONCE ONCE PO Last administered on 02/17/17 11:05; Start 02/17/17 at 10:45; Stop 02/17/17 at 10:46; Status DC Acetaminophen/ Hydrocodone Bitart ([place] 5-325 Mg) 1 tab Q6H PRN PO PAIN SCALE 6 TO 10 Last administered on 02/20/17 08:39; Start 02/17/17 at 10:45; Stop 02/20/17 at 13:56; Status DC Magnesium Sulfate/ Dextrose 100 ml @ 100 mls/hr Q1H IV Last administered on 21:15; Start 02/17/17 at 13:00; Stop 02/17/17 at 15:06; Status DC Magnesium Sulfate/ Dextrose 100 ml @ 100 mls/hr ONCE ONCE IV ; Start at 20:15; Stop 02/17/17 at 21:14; Status DC Ondansetron HCl (Zofran Odt) 4 mg ONCE ONCE PO ; Start 02/20/17 at 11:30; Stop 02/20/17 at 11:31; Status DC Medical Decision Making MDM Remarks Last 48 hours Impressions Cholangiopancreatography MRI 02/15/17 0000 Signed Impressions: Service Date/Time: Wednesday, February 15, 2017 16:42 - CONCLUSION: 1. Intra and extrahepatic biliary duct dilatation without discrete evidence of obstructing lesion. 2. Common bile duct measures 1.3 cm in diameter. 3. No evidence of common bile duct stone. Killian Lo MD Attending Statement She is stable for discharge. I would prefer her in a SNIF. Recommend further occupational therapy Will sign off Jose L Taveras MD Feb 20, 2017 16:27
== END 2017-02-20 13:55 | disposition home health service (06) | DRG 65 ==
LOC: NEPE 13:10 → NEDA 17:13 → N03B 02-15 05:55 → N05B 02-15 17:13
PROVIDERS: ADMIT Family Medicine; ATTEND Family Medicine
DX: I62.01 Nontraumatic acute subdural hemorrhage (principal); Z68.1 Body mass index [BMI] 19.9 or less, adult; G91.2 (Idiopathic) normal pressure hydrocephalus; E11.9 Type 2 diabetes mellitus without complications; E83.42 Hypomagnesemia; D64.9 Anemia, unspecified; I10 Essential (primary) hypertension; K83.8 Other specified diseases of biliary tract; R63.4 Abnormal weight loss; I62.03 Nontraumatic chronic subdural hemorrhage; R29.6 Repeated falls; R53.1 Weakness; R10.9 Unspecified abdominal pain; E87.6 Hypokalemia
CPT/HCPCS: 70450; 71010; 74177; 74181; 76377; 76937; 80053; 81001; 82105; 82150; 82378; 82550; 82947; 82948; 83690; 83735; 84100; 84132; 84484; 85025; 85610; 85730; 86301; 86850; 86900; 86901; 87641; 93005; 96361; 96374; 96375; C9113; J2405; J3475; J7030; Q9967

== ENCOUNTER 2017-02-25 17:35 | Inpatient (IN) | payer OTHER, MEDICAID, MEDICARE ==
[~2017-02-25] VITALS: Ht 149.9 cm; Wt 36.1 kg
[~2017-02-25 17:35] MED LIST changes: +AMLO5 PO; -ARIC5TAB6 PO; -ASPI-147 PO; -BETH25TA2 PO; -CARA1SUS3 PO; -GETGO ROLLING W1 MI1; -GLIP1TAB51 PO; -LIPI40TA PO; -LISI-515 PO; -MECL-62 PO; -METO-309 PO; -NITR100C4 PO; -OMEP40CA2 PO; -ONDA4TAB15; -POTA-163 PO; -REGL10TA5 PO; +WALKER/ADULT/FO1 MIS
[2017-02-25 17:48] VITALS: BP 154/69; PULSE 90; RESP 18; TEMP 97.5; O2SAT 100
[2017-02-25 17:54] VITALS: BP 154/69; PULSE 89; RESP 18; TEMP 97.5; O2SAT 100
[2017-02-25] MEDS ORDERED: METF500T PO (17:54)
[2017-02-25] MEDS ORDERED: SODIUM CHLORIDE 0.9% FLUSH 10 ML FLUSH IV FLUSH PRN ×2 (18:00→21:15)
[2017-02-25 18:02] VITALS: O2SAT 100
[2017-02-25 18:32] LABS: AUTOMATED NEUTROPHIL # 2.3 TH/MM3 (1.8-7.7); BASOPHIL % 0.5 % (0.0-2.0); EOSINOPHIL % 0.7 % (0.0-4.0); HEMATOCRIT 29.6 % (35.0-46.0); LYMPH % 31.3 % (9.0-44.0); LYMPHOCYTE # 1.4 TH/MM3 (1.0-4.8); MEAN CELL VOLUME 94.1 FL (80.0-100.0); MEAN CORPUSCULAR HEMOGLOBIN 31.9 PG (27.0-34.0); MEAN CORPUSCULAR HGB CONC 33.9 % (32.0-36.0); MEAN PLATELET VOLUME 7.9 FL (7.0-11.0); MONO % 16.5 % (0.0-8.0); MONOCYTE # 0.7 TH/MM3 (0-0.9); PLATELET COUNT 295 TH/MM3 (150-450); RED BLOOD COUNT 3.14 MIL/MM3 (4.00-5.30); WHITE BLOOD COUNT 4.5 TH/MM3 (4.0-11.0)
[2017-02-25 18:38] LABS: INTERNATIONAL NORMALIZED RATIO 1.2 RATIO
[2017-02-25 18:47] LABS: AMORPHOUS SEDIMENT, URINE RARE; BILIRUBIN, URINE NEG (NEG); BLOOD, URINE NEG (NEG); GLUCOSE,URINE NEG (NEG); HYALINE CAST, URINE 1 /lpf (RARE); KETONE, URINE NEG (NEG); MUCUS URINE FEW /lpf (OCC); NITRITE,URINE NEG (NEG); PH, URINE 6.5 (5.0-8.5); SQUAMOUS EPITHELIAL CELL URINE 4 /hpf (0-5); TRANSITIONAL EPI CELLS, URINE <1 /hpf; URINE COLOR YELLOW (YELLW/STRAW); URINE LEUKOCYTE ESTERASE MOD (NEG)
[2017-02-25 18:52] LABS: ALT (GPT) 19 U/L (10-53)
[2017-02-25 18:53] LABS: ALBUMIN 2.2 GM/DL (3.4-5.0); AST (GOT) 27 U/L (15-37); BICARBONATE 30.6 MEQ/L (21.0-32.0); BLOOD UREA NITROGEN 19 MG/DL (7-18); CALCIUM 8.7 MG/DL (8.5-10.1); CHLORIDE 107 MEQ/L (98-107); CREATININE 0.45 MG/DL (0.50-1.00); GLOMERULAR FILTRATION RATE 134 ML/MIN (>89); GLUCOSE,RANDOM 180 MG/DL (74-106); SODIUM (NA) 144 MEQ/L (136-145)
[2017-02-25 19:02] LABS: ALKALINE PHOSPHATASE 64 U/L (45-117); TOTAL BILIRUBIN ADULT 0.2 MG/DL (0.2-1.0); TROPONIN I LESS THAN 0.02 NG/ML (0.02-0.05)
--- NOTE | 2017-02-25 19:11 | RADRPT ---
EXAM DATE/TIME: 02/25/2017 18:12 [facility] COMPARISON: CHEST SINGLE AP, February 14, 2017, 15:11. INDICATIONS : Syncope. MEDICAL HISTORY : Hypertension. Diabetes mellitus type 2. SURGICAL HISTORY : Cholecystectomy. Appendectomy. ENCOUNTER: Initial ACUITY: 1 day PAIN SCORE: 2/10 LOCATION: Bilateral chest FINDINGS: Single AP view of the chest. The lungs are clear. Cardiomediastinal silhouette within normal limits. No evidence of pleural effusion or pneumothorax. CONCLUSION: No acute cardiopulmonary disease identified. Job Malik MD on February 25, 2017 at 19:10 Board Certified Radiologist. This report was verified electronically.
[2017-02-25 19:13] VITALS: BP 153/66; PULSE 85; RESP 16; O2SAT 100
--- NOTE | 2017-02-25 19:16 | PD ---
HPI Chief Complaint: Altered Mental Status Time Seen by Provider: 18:07 Travel History International Travel<30 days: No Contact w/Intl Traveler<30days: No Traveled to known affect area: No History of Present Illness HPI 81-year-old female presents emergency department for evaluation of altered mental status. She was last seen normal at approximately noon by her family members. She was found to be confused at 4 PM. She was recently treated for an intracranial bleed at our facility on 14 February. She was admitted to the hospital at that time her Dr. Taveras was a neurosurgeon consult is on the case and the bleed was managed nonoperatively. The family denies any new falls, injuries or trauma. Patient is denying headache. Patient is alert to self and place but otherwise confused and answers questions inappropriately. Family is denying any fevers, chills, malaise. Family states patient has not complaining of chest pain or shortness breath. No focal neurological deficit noted. Speech sounds normal but confused context. PFSH Past Medical History Autoimmune Disease: No Blood Disorders: No Heart Rhythm Problems: No Cancer: No Cardiovascular Problems: No High Cholesterol: Yes Chemotherapy: No Chest Pain: Yes Congestive Heart Failure: No Cerebrovascular Accident: Yes Diabetes: Yes Patient Takes Glucophage: Yes Diminished Hearing: No Endocrine: No Gastrointestinal Disorders: Yes Genitourinary: No Headaches: Yes (MIGRAIN) Hypertension: Yes Immune Disorder: No Implanted Vascular Access Dvce: No Musculoskeletal: No Neurologic: Yes (FALLING MULTIPLE TIMES WITHIN THE PAST FEW WEEKS) Psychiatric: No Reproductive: No Respiratory: No Immunizations Current: Yes Migraines: Yes Radiation Therapy: No Seizures: Yes Thyroid Disease: No Ulcer: Yes Tetanus Vaccination: Unknown Influenza Vaccination: Yes ?: Not Menopausal: Yes : 1 Para: 1 Miscarriage: 0 : 0 Tubal Ligation: Yes Past Surgical History Abdominal Surgery: Yes (APPENDIX AND OTHER) AICD: No Appendectomy: Yes (1955) Arteriovenous Shunt: No Cardiac Surgery: No Cholecystectomy: Yes (2002) Ear Surgery: No Eye Surgery: No Genitourinary Surgery: No Gynecologic Surgery: No Insulin Pump: No Joint Replacement: No Oral Surgery: No Pacemaker: No Thoracic Surgery: No Other Surgery: Yes (BREAST REDUCTION) Social History Alcohol Use: No Tobacco Use: No Substance Use: No Allergies-Medications (Allergen,Severity, Reaction): Coded Allergies: ciprofloxacin (Verified Allergy, Severe, RASH, VOMITING, 02/14/17) Reported Meds & Prescriptions Reported Meds & Active Scripts Active Walker/Adult/Folding (Device) 1 Mis Mis Ea .ROUTE DIRECTED PRN Norvasc (Amlodipine Besylate) 5 Mg Tab 5 Mg PO DAILY 30 Days Reported Metformin (Metformin HCl) 500 Mg Tab 500 Mg PO DAILY With a meal Review of Systems Except as stated in HPI: all other systems reviewed are Neg Physical Exam Narrative GENERAL: Elderly, frail 81-year-old female in no acute respiratory distress. SKIN: Focused skin assessment warm/dry. HEAD: Atraumatic. Normocephalic. EYES: Pupils equal and round. No scleral icterus. No injection or drainage. ENT: No nasal bleeding or discharge. Mucous membranes pink and moist. NECK: Trachea midline. No JVD. CARDIOVASCULAR: Regular rate and rhythm. No murmur appreciated. RESPIRATORY: No accessory muscle use. Clear to auscultation. Breath sounds equal bilaterally. GASTROINTESTINAL: Abdomen soft, non-tender, nondistended. Hepatic and splenic margins not palpable. MUSCULOSKELETAL: No obvious deformities. No clubbing. No cyanosis. No edema. NEUROLOGICAL: Awake and confused. No obvious cranial nerve deficits. Motor grossly within normal limits. Speech sounds normal but confused context. Data Data Last Documented VS Vital Signs Date Time Temp Pulse Resp B/P (MAP) Pulse Ox O2 Delivery O2 Flow Rate FiO2 02/25/17 19:14 87 16 100 Room Air 02/25/17 19:13 153/66 (95) 02/25/17 17:54 97.5 Orders Orders Electrocardiogram (02/25/17 18:00) Complete Blood Count With Diff (02/25/17 18:00) Comprehensive Metabolic Panel (02/25/17 18:00) Prothrombin Time / Inr (Pt) (02/25/17 18:00) Act Partial Throm Time (Ptt) (02/25/17 18:00) Troponin I (02/25/17 18:00) Thyroid Stimulating Hormone (02/25/17 18:00) Urinalysis - C+S If Indicated (02/25/17 18:00) Chest, Single Ap (02/25/17 18:00) Ct Brain W/O Iv Contrast(Rout) (02/25/17 18:00) Blood Glucose (02/25/17 18:00) Ecg Monitoring (02/25/17 18:00) Iv Access Insert/Monitor (02/25/17 18:00) Oximetry (02/25/17 18:00) Sodium Chloride 0.9% Flush (Ns Flush) (02/25/17 18:00) Drug Screen, Random Urine (02/25/17 18:00) Alcohol (Ethanol) (02/25/17 18:00) Urine Culture (02/25/17 18:20) Ct Abd/Pel W/O Iv Contrast (02/25/17 20:36) Ondansetron Inj (Zofran Inj) (02/25/17 20:45) Ceftriaxone Inj (Rocephin Inj) (02/25/17 21:00) Admit Order (Ed Use Only) (02/25/17 20:47) Labs Laboratory Tests Test 02/25/17 18:08 02/25/17 18:20 White Blood Count 4.5 TH/MM3 Red Blood Count 3.14 MIL/MM3 Hemoglobin 10.0 GM/DL Hematocrit 29.6 % Mean Corpuscular Volume 94.1 FL Mean Corpuscular Hemoglobin 31.9 PG Mean Corpuscular Hemoglobin Concent 33.9 % Red Cell Distribution Width 15.0 % Platelet Count 295 TH/MM3 Mean Platelet Volume 7.9 FL Neutrophils (%) (Auto) 51.0 % Lymphocytes (%) (Auto) 31.3 % Monocytes (%) (Auto) 16.5 % Eosinophils (%) (Auto) 0.7 % Basophils (%) (Auto) 0.5 % Neutrophils # (Auto) 2.3 TH/MM3 Lymphocytes # (Auto) 1.4 TH/MM3 Monocytes # (Auto) 0.7 TH/MM3 Eosinophils # (Auto) 0.0 TH/MM3 Basophils # (Auto) 0.0 TH/MM3 CBC Comment DIFF FINAL Differential Comment Prothrombin Time 12.0 SEC Prothromb Time International Ratio 1.2 RATIO Activated Partial Thromboplast Time 22.2 SEC Blood Urea Nitrogen 19 MG/DL Creatinine 0.45 MG/DL Random Glucose 180 MG/DL Total Protein 7.0 GM/DL Albumin 2.2 GM/DL Calcium Level 8.7 MG/DL Alkaline Phosphatase 64 U/L Aspartate Amino Transf (AST/SGOT) 27 U/L Alanine Aminotransferase (ALT/SGPT) 19 U/L Total Bilirubin 0.2 MG/DL Sodium Level 144 MEQ/L Potassium Level 3.7 MEQ/L Chloride Level 107 MEQ/L Carbon Dioxide Level 30.6 MEQ/L Anion Gap 6 MEQ/L Estimat Glomerular Filtration Rate 134 ML/MIN Troponin I LESS THAN 0.02 NG/ML Thyroid Stimulating Hormone 3rd Gen LESS THAN 0.005 uIU/ML Ethyl Alcohol Level LESS THAN 3 MG/DL Urine Color YELLOW Urine Turbidity HAZY Urine pH 6.5 Urine Specific [place] 1.016 Urine Protein TRACE mg/dL Urine Glucose (UA) NEG mg/dL Urine Ketones NEG mg/dL Urine Occult Blood NEG Urine Nitrite NEG Urine Bilirubin NEG Urine Urobilinogen LESS THAN 2.0 MG/DL Urine Leukocyte Esterase MOD Urine RBC 1 /hpf Urine WBC 8 /hpf Urine Squamous Epithelial Cells 4 /hpf Urine Transitional Epithelial Cells <1 /hpf Urine Amorphous Sediment RARE Urine Hyaline Casts 1 /lpf Urine Mucus FEW /lpf Microscopic Urinalysis Comment CATH-CULTURE IND Urine Opiates Screen NEG Urine Barbiturates Screen NEG Urine Amphetamines Screen NEG Urine Benzodiazepines Screen NEG Urine Cocaine Screen NEG Urine Cannabinoids Screen NEG MDM Medical Decision Making Medical Screen Exam Complete: Yes Emergency Medical Condition: Yes Differential Diagnosis Differential diagnoses include but not limited to ICH, intracranial mass, electrolyte abnormality, CVA/TIA Narrative Course Patient placed on monitor, IV obtained, CBC, CMP, PT/INR, troponin, CKMB, UA, and drug screen ordered and pending. EKG ordered and interpreted. EKG shows sinus rhythm with heart rate 86. Chest x-ray ordered and pending. Chest x-ray is clear. Brain CT ordered and pending. Brain CT shows possible small acute subdural collection posteriorly. The previous subdural collection is decreasing in size. CBC shows anemia with hemoglobin at 10. Compared with patient's previous medical record and hemoglobin around her baseline. CMP shows hypoalbuminemia at 2.2, elevated glucose at 180. Troponin negative at less than 0.02. PT/INR shows slightly elevated PT at 12 and slightly decreased APTT at 22.2 UA reflects UTI with elevated WBCs and esterase. Patient given 1 g of Rocephin IV in the emergency department. Drug screen and toxicology is negative. Intensiveness called regarding CAT scan findings of acute subdural collection. Email Marketing Executive, Dr. Whitley came to the emergency department and evaluated the patient. The patient's mental status has remained the same throughout her emergency department stay. There is no focal neurological deficit. He believes the patient is stable for for admission. Dr. Estevez accepted admission. Patient admitted for this time. Last Impressions Abdomen/Pelvis CT 02/25/172035 Signed Impressions: Service Date/Time: Saturday, February 25, 2017 20:55 - CONCLUSION: 1. No acute findings in the abdomen and pelvis. 2. Small layering calculi in the right side of the urinary bladder. 3. Status post cholecystectomy. 4. Lumbar spine degenerative findings. Job Malik MD Head CT 02/25/17 1800 Signed Impressions: Service Date/Time: Saturday, February 25, 2017 18:28 - CONCLUSION: 1. Decrease in size of left-sided frontoparietal subdural collection. Possible small acute component again seen posteriorly. 2. Right-sided frontoparietal subdural collection no longer seen. Job Malik MD Chest X-Ray 02/25/17 1800 Signed Impressions: Service Date/Time: Saturday, February 25, 2017 18:12 - CONCLUSION: No acute cardiopulmonary disease identified. Job Malik MD Diagnosis Primary Impression: ICH (intracerebral hemorrhage) Qualified Codes: I61.9 - Nontraumatic intracerebral hemorrhage, unspecified Additional Impression: UTI (urinary tract infection) Qualified Codes: N39.0 - Urinary tract infection, site not specified Admitting Information Admitting Physician Requests: Admit Camelia Hardy Feb 25, 2017 19:16
--- NOTE | 2017-02-25 19:28 | RADRPT ---
EXAM DATE/TIME: 02/25/2017 18:28 [facility] COMPARISON: CT BRAIN W/O CONTRAST, February 14, 2017, 15:54. INDICATIONS : Altered mental status. RADIATION DOSE: 47.69 CTDIvol (mGy) MEDICAL HISTORY : Cerebrovascular disease. Seizures. Hypertension.prior subarachnoid hemorrhage SURGICAL HISTORY : Appendectomy. Cholecystectomy. ENCOUNTER: Initial ACUITY: 1 day PAIN SCALE: Non-responsive LOCATION: cranial TECHNIQUE: Multiple contiguous axial images were obtained of the head. Using automated exposure control and adj ustment of the mA and/or kV according to patient size, radiation dose was kept as low as reasonably a chievable to obtain optimal diagnostic quality images. DICOM format image data is available electro nically for review and comparison. FINDINGS: CEREBRUM: Chronic left frontoparietal subdural collection slightly has decreased in size when compared to prior study, now measuring 12 mm in thickness compared to 17 mm in thickness. Small areas of linear hyperd ensity are again seen posteriorly that could represent small acute components. Right-sided subdural c ollection is no longer seen, ventricles are slightly more prominent diffusely. No evidence of midline shift. Harvey matter-white matter differentiation and normal. No intracranial mass lesion. POSTERIOR FOSSA: The cerebellum and brainstem are intact. The 4th ventricle is midline. The cerebellopontine angle i s unremarkable. EXTRACRANIAL: The visualized portion of the orbits is intact. SKULL: The calvaria is intact. No evidence of skull fracture. CONCLUSION: 1. Decrease in size of left-sided frontoparietal subdural collection. Possible small acute component again seen posteriorly. 2. Right-sided frontoparietal subdural collection no longer seen. Job Malik MD on February 25, 2017 at 19:24 Board Certified Radiologist. This report was verified electronically.
[2017-02-25] MEDS ORDERED: ONDANSETRON HCL 4 MG/2 ML VIAL IV PUSH ONE (20:45)
[2017-02-25] MEDS ORDERED: cefTRIAXone INJ 1,000 MG in SODIUM CHLORIDE 0.9% INJ 100 ML IV ONE (21:00)
--- NOTE | 2017-02-25 21:06 | HHI.CCPN ---
Subjective Remarks/Hospital Course At the request of Dr. Estevez, I saw and evaluated the patient for the appropriateness of level of care. I spoke with the ER provider and the patient briefly. In brief, this is an 81yF with recent history of subdural hemorrhage who represents with new altered mental status. Repeat head CT was read as a possible tiny new acute component in the posterior aspect. Level of midline shift is not worse. On my evaluation of the head CT, any acute area of bleed is not clinically significant when observing the whole area of stable SDH. The patient is awake and alert, slightly confused, but on room air and protecting her airway, speaking with me. she has evidence of a UTI on u/a. I spoke with the ER provider who feels comfortable admitting her to a floor-level care. I spoke again to Dr. Estevez and she feels comfortable admitting the patient to her service. Brief recommendations: - agree with keeping patient on a floor-level care. - would recommend treating presumed UTI and following up urine culture - would recommend repeat head CT in 24h - would repeat head CT if mental status declines. [facility] will be happy to see the patient in consultation at the request of the admitting team or with any change in clinical condition. Jose Whitley MD Feb 25, 2017 21:06
[2017-02-25] MEDS ORDERED: SENNOSIDES 8.6 MG TAB PO PRN (21:15)
[2017-02-25] MEDS ORDERED: NALOXONE HCL 0.4 MG/ML AMP IV PUSH PRN (21:15)
[2017-02-25] MEDS ORDERED: LACTULOSE SYRUP 20 GM/30 ML CUP PO PRN (21:15)
[2017-02-25] MEDS ORDERED: GLUCAGON 1 MG/ML VIAL OTHER PRN (21:15)
[2017-02-25] MEDS ORDERED: DEXTROSE 50% IN WATER 50 ML VIAL(D50) IV PUSH PRN (21:15)
[2017-02-25] MEDS ORDERED: MAGNESIUM HYDROXIDE SUSP 30 ML CUP PO PRN (21:15)
[2017-02-25] MEDS ORDERED: BISACODYL 10 MG SUPP RECTAL PRN (21:15)
--- NOTE | 2017-02-25 21:40 | RADRPT ---
EXAM DATE/TIME: 02/25/2017 20:55 [facility] COMPARISON: No previous studies available for comparison. INDICATIONS : Abdominal pain. ORAL CONTRAST: No oral contrast ingested. RADIATION DOSE: 4.51 CTDIvol (mGy) MEDICAL HISTORY : Hypertension. Cerebrovascular disease. Diabetes mellitus type 2.prior SAH SURGICAL HISTORY : Appendectomy. Cholecystectomy. ENCOUNTER: Initial ACUITY: 1 day PAIN SCALE: 6/10 LOCATION: cranial TECHNIQUE: Volumetric scanning of the abdomen and pelvis was performed. Using automated exposure control and ad justment of the mA and/or kV according to patient size, radiation dose was kept as low as reasonably achievable to obtain optimal diagnostic quality images. DICOM format image data is available electro nically for review and comparison. FINDINGS: LOWER LUNGS: Coronary artery calcifications. Lung bases are clear. LIVER: Cholecystectomy clips. Liver within normal limits. SPLEEN: Normal size without lesion. PANCREAS: Within normal limits. KIDNEYS: Normal in size and shape. There is no mass, stone, or hydronephrosis. ADRENAL GLANDS: Within normal limits. VASCULAR: There is no aortic aneurysm. BOWEL/MESENTERY: No evidence of bowel dilatation. No free air or free fluid. Appendix not visualized. ABDOMINAL WALL: Within normal limits. RETROPERITONEUM: There is no lymphadenopathy. BLADDER: Layering small calculi in the posterior aspect of urinary bladder on the right. REPRODUCTIVE: Within normal limits. INGUINAL: There is no lymphadenopathy or hernia. MUSCULOSKELETAL: Facet arthrosis lower lumbar spine. CONCLUSION: 1. No acute findings in the abdomen and pelvis. 2. Small layering calculi in the right side of the urinary bladder. 3. Status post cholecystectomy. 4. Lumbar spine degenerative findings. Job Malik MD on February 25, 2017 at 21:34 Board Certified Radiologist. This report was verified electronically.
[2017-02-25 22:20] VITALS: BP 165/72; PULSE 99; RESP 20; TEMP 98.5; O2SAT 94
[2017-02-25 23:54] VITALS: PULSE 100
[2017-02-26] VITALS (10 sets, daily range): BP systolic 111–159; BP diastolic 53–70; PULSE 73–91; RESP 16–19; TEMP 97.5–98.5; O2SAT 95–99
[2017-02-26] MEDS ORDERED: SODIUM CHLORIDE 0.65% NASAL SPRAY 45 ML BTL EACH NARE PRN (00:15)
[2017-02-26] MEDS: ACETAMINOPHEN 325 MG TAB PO PRN ×3 (00:43→17:39)
--- NOTE | 2017-02-26 01:42 | HHI.HP ---
HPI Service [facility] Primary Care Physician Unknown Admission Diagnosis ICH, AMS Diagnoses: Travel History International Travel<30 Days: No Contact w/Intl Traveler <30 Da: No Traveled to Known Affected Are: No History of Present Illness 81-year-old female discharged on 02/18 where she was treated for subdural hematoma with a small hemorrhagic conversion was brought to the emergency department for evaluation of altered mental status. Per ED notes, the patient was normal around noon yesterday and was found to be confused around 4 PM. At the time of our interview, the patient is able to tell me her name but not her current location or the year. She complains of a headache and suprapubic abdominal pain. Head CT showed a decrease in the size of the left-sided frontoparietal subdural collection with a possible small acute component again seen posteriorly. CT of the abdomen/pelvis showed no acute findings. UA consistent with UTI. Review of Systems Denies fever or chills Denies blurry vision, otorrhea, rhinorrhea Denies sore throat and cough No chest pain, palpitations, shortness of breath Positive abdominal pain Denies constipation/diarrhea/nausea/vomiting Denies muscle pain/weakness No rashes Past Family Social History Past Medical History (Obtained from medical records review) Subdural hematoma History of SVT H. pylori gastritis/peptic ulcer Hypertension Past Surgical History Appendectomy Cholecystectomy Breast reduction Reported Medications Reported Meds & Active Scripts Active Walker/Adult/Folding (Device) 1 Mis Mis Ea .ROUTE DIRECTED PRN Norvasc (Amlodipine Besylate) 5 Mg Tab 5 Mg PO DAILY 30 Days Reported Metformin (Metformin HCl) 500 Mg Tab 500 Mg PO DAILY With a meal Allergies: Coded Allergies: ciprofloxacin (Verified Allergy, Severe, RASH, VOMITING, 02/14/17) Family History No family history of CAD/DM Social History Denies tobacco, alcohol or illicit drug use Physical Exam Vital Signs Vital Signs Date Time Temp Pulse Resp B/P (MAP) Pulse Ox O2 Delivery O2 Flow Rate FiO2 02/25/17 22:19 02/25/17 19:14 87 16 100 Room Air 02/25/17 19:13 85 16 153/66 (95) 100 Room Air 02/25/17 18:02 100 Room Air 02/25/17 17:54 97.5 89 18 154/69 (97) 100 02/25/17 17:48 90 18 100 Room Air 02/25/17 17:48 97.5 90 18 154/69 (97) 100 Room Air Physical Exam GENERAL: Thin, female lying in bed SKIN: No rashes, ecchymoses or lesions. Cool and dry. HEAD: Atraumatic. Normocephalic. No temporal or scalp tenderness. EYES: Pupils equal round and reactive. Extraocular motions intact. No scleral icterus. No injection or drainage. ENT: Nose without bleeding, purulent drainage or septal hematoma. Throat without erythema, tonsillar hypertrophy or exudate. Uvula midline. Airway patent. NECK: Trachea midline. No JVD or lymphadenopathy. Supple, nontender, no meningeal signs. CARDIOVASCULAR: Regular rate and rhythm without murmurs, gallops, or rubs. RESPIRATORY: Clear to auscultation. Breath sounds equal bilaterally. No wheezes , rales, or rhonchi. GASTROINTESTINAL: Abdomen soft, nondistended. Tender to palpation, worse in the lower quadrants. No hepato-splenomegaly, or palpable masses. No guarding. MUSCULOSKELETAL: Extremities without clubbing, cyanosis, or edema. No joint tenderness, effusion, or edema noted. No calf tenderness. NEUROLOGICAL: Awake and alert. Cranial nerves II through XII intact. Motor and sensory grossly within normal limits. Five out of 5 muscle strength in all muscle groups. Normal speech. Laboratory Laboratory Tests Test 02/25/17 18:08 02/25/17 18:20 White Blood Count 4.5 Red Blood Count 3.14 Hemoglobin 10.0 Hematocrit 29.6 Mean Corpuscular Volume 94.1 Mean Corpuscular Hemoglobin 31.9 Mean Corpuscular Hemoglobin Concent 33.9 Red Cell Distribution Width 15.0 Platelet Count 295 Mean Platelet Volume 7.9 Neutrophils (%) (Auto) 51.0 Lymphocytes (%) (Auto) 31.3 Monocytes (%) (Auto) 16.5 Eosinophils (%) (Auto) 0.7 Basophils (%) (Auto) 0.5 Neutrophils # (Auto) 2.3 Lymphocytes # (Auto) 1.4 Monocytes # (Auto) 0.7 Eosinophils # (Auto) 0.0 Basophils # (Auto) 0.0 CBC Comment DIFF FINAL Differential Comment Prothrombin Time 12.0 Prothromb Time International Ratio 1.2 Activated Partial Thromboplast Time 22.2 Blood Urea Nitrogen 19 Creatinine 0.45 Random Glucose 180 Total Protein 7.0 Albumin 2.2 Calcium Level 8.7 Alkaline Phosphatase 64 Aspartate Amino Transf (AST/SGOT) 27 Alanine Aminotransferase (ALT/SGPT) 19 Total Bilirubin 0.2 Sodium Level 144 Potassium Level 3.7 Chloride Level 107 Carbon Dioxide Level 30.6 Anion Gap 6 Estimat Glomerular Filtration Rate 134 Troponin I LESS THAN 0.02 Thyroid Stimulating Hormone 3rd Gen LESS THAN 0.005 Ethyl Alcohol Level LESS THAN 3 Urine Color YELLOW Urine Turbidity HAZY Urine pH 6.5 Urine Specific [place] 1.016 Urine Protein TRACE Urine Glucose (UA) NEG Urine Ketones NEG Urine Occult Blood NEG Urine Nitrite NEG Urine Bilirubin NEG Urine Urobilinogen LESS THAN 2.0 Urine Leukocyte Esterase MOD Urine RBC 1 Urine WBC 8 Urine Squamous Epithelial Cells 4 Urine Transitional Epithelial Cells <1 Urine Amorphous Sediment RARE Urine Hyaline Casts 1 Urine Mucus FEW Microscopic Urinalysis Comment CATH-CULTURE IND Urine Opiates Screen NEG Urine Barbiturates Screen NEG Urine Amphetamines Screen NEG Urine Benzodiazepines Screen NEG Urine Cocaine Screen NEG Urine Cannabinoids Screen NEG Date/Time Source Procedure Growth Status 02/25/17 18:20 Urine Clean Catch Urine Culture Pending Received Result Diagram: 02/25/17180702/25/171807 Caprini VTE Risk Assessment Caprini VTE Risk Assessment: Mod/High Risk (score >= 2) Caprini Risk Assessment Model Point Value = 1 Point Value = 2 Point Value = 3 Point Value = 5 Age 41-60 Minor surgery BMI > 25 kg/m2 Swollen legs Varicose veins or History of unexplained or recurrent spontaneous Oral contraceptives or hormone replacement Sepsis (< 1 month) Serious lung disease, including pneumonia (< 1 month) Abnormal pulmonary function Acute myocardial infarction Congestive heart failure (< 1 month) History of inflammatory bowel disease Medical patient at bed rest Age 61-74 Arthroscopic surgery Major open surgery (> 45 min) Laparoscopic surgery (> 45 min) Malignancy Confined to bed (> 72 hours) Immobilizing plaster cast Central venous access Age >= 75 History of VTE Family history of VTE Factor V Leiden Prothrombin [id number] Lupus anticoagulant Anticardiolipin antibodies Elevated serum homocysteine Heparin-induced thrombocytopenia Other congenital or acquired thrombophilia Stroke (< 1 month) Elective arthroplasty Hip, pelvis, or leg fracture Acute spinal cord injury (< 1 month) Prophylaxis Regimen Total Risk Factor Score Risk Level Prophylaxis Regimen 0-1 Low Early ambulation 2 Moderate Order ONE of the following: *Sequential Compression Device (SCD) *Heparin 5000 units SQ BID 3-4 Higher Order ONE of the following medications: *Heparin 5000 units SQ TID *Enoxaparin/Lovenox 40 mg SQ daily (WT < 150 kg, CrCl > 30 mL/min) *Enoxaparin/Lovenox 30 mg SQ daily (WT < 150 kg, CrCl > 10-29 mL/min) *Enoxaparin/Lovenox 30 mg SQ BID (WT < 150 kg, CrCl > 30 mL/min) AND/OR *Sequential Compression Device (SCD) 5 or more Highest Order ONE of the following medications: *Heparin 5000 units SQ TID (Preferred with Epidurals) *Enoxaparin/Lovenox 40 mg SQ daily (WT < 150 kg, CrCl > 30 mL/min) *Enoxaparin/Lovenox 30 mg SQ daily (WT < 150 kg, CrCl > 10-29 mL/min) *Enoxaparin/Lovenox 30 mg SQ BID (WT < 150 kg, CrCl > 30 mL/min) AND *Sequential Compression Device (SCD) Assessment and Plan Assessment and Plan Assessment/plan: 1. Subdural hematoma with possible new small bleed CT of the head showed decrease in size of left-sided subdural collection with possible small acute component seen posteriorly Neurosurgery consulted, appreciate recommendations Repeat head CT in 24 hours Monitor for signs of mental status decline 2. UTI Rocephin Urine culture pending 3. Altered mental status Unclear etiology; may be secondary to subdural hematoma versus infectious Plan as above 4. Abdominal pain Pain is suprapubic, may be secondary to UTI CT of the abdomen/pelvis with no acute process Monitor 5. HTN Continue home Norvasc FEN Heart healthy diet Electrolytes: Monitor and replete when necessary Holding pharmacologic anticoagulation secondary to subdural hematoma Case discussed with ER physician and critical care medicine at length Physician Certification 2 Midnight Certification Type: Admission for Inpatient Services Order for Inpatient Services The services are ordered in accordance with Medicare regulations or non- Medicare payer requirements, as applicable. In the case of services not specified as inpatient-only, they are appropriately provided as inpatient services in accordance with the 2-midnight benchmark. Estimated LOS (days): 2 2 days is the estimated time the patient will need to remain in the hospital, assuming treatment plan goals are met and no additional complications. Post-Hospital Plan: Not yet determined Josie Estevez MD Feb 26, 2017 01:42
[2017-02-26] MEDS: INSULIN ASPART SUPPLEMENTAL SCALE SQ SCH ×4 (08:00→20:01)
--- NOTE | 2017-02-26 08:25 | HHI.PR ---
Subjective Remarks in no distress. resting comfortably. awake and alert. Objective Vitals Vital Signs Date Time Temp Pulse Resp B/P (MAP) Pulse Ox O2 Delivery O2 Flow Rate FiO2 02/26/17 05:43 19 02/26/17 04:10 75 02/26/17 04:00 97.5 90 19 159/70 (99) 95 02/26/17 00:09 88 02/26/17 00:00 97.5 90 19 159/70 (99) 95 02/25/17 23:54 100 02/25/17 22:20 98.5 99 20 165/72 (103) 94 02/25/17 22:19 02/25/17 19:14 87 16 100 Room Air 02/25/17 19:13 85 16 153/66 (95) 100 Room Air 02/25/17 18:02 100 Room Air 02/25/17 17:54 97.5 89 18 154/69 (97) 100 02/25/17 17:48 90 18 100 Room Air 02/25/17 17:48 97.5 90 18 154/69 (97) 100 Room Air I/O 02/25/17 02/25/17 02/25/17 02/26/17 02/26/17 02/26/17 07:00 15:00 23:00 07:00 15:00 23:00 Intake Total 280 ml Output Total 150 ml Balance 130 ml Intake Oral 280 ml Output Urine Total 150 ml Result Diagram: 02/25/17180702/25/171807 Imaging Last Impressions Abdomen/Pelvis CT 02/25/172035 Signed Impressions: Service Date/Time: Saturday, February 25, 2017 20:55 - CONCLUSION: 1. No acute findings in the abdomen and pelvis. 2. Small layering calculi in the right side of the urinary bladder. 3. Status post cholecystectomy. 4. Lumbar spine degenerative findings. Job Malik MD Head CT 02/25/17 1800 Signed Impressions: Service Date/Time: Saturday, February 25, 2017 18:28 - CONCLUSION: 1. Decrease in size of left-sided frontoparietal subdural collection. Possible small acute component again seen posteriorly. 2. Right-sided frontoparietal subdural collection no longer seen. Job Malik MD Chest X-Ray 02/25/17 1800 Signed Impressions: Service Date/Time: Saturday, February 25, 2017 18:12 - CONCLUSION: No acute cardiopulmonary disease identified. Job Malik MD Objective Remarks GENERAL: This is a well-nourished, well-developed patient, in no apparent distress. CARDIOVASCULAR: Regular rate and regular rhythm without murmurs, gallops, or rubs. RESPIRATORY: Clear to auscultation. Breath sounds equal bilaterally. No wheezes , rales, or rhonchi. GASTROINTESTINAL: Abdomen soft, non-tender, nondistended. Normal, active bowel sounds MUSCULOSKELETAL: Extremities without clubbing, cyanosis, or edema. NEURO: Awake and alert Medications and IVs Inpatient Medications Acetaminophen (Tylenol) 650 mg Q4H PRN PO TEMP > 100.4, pain 1-6 Last administered on 02/26/17t 04:51; Start 02/25/17 at 21:15 Amlodipine Besylate (Norvasc) 5 mg DAILY PO ; Start 02/26/17 at 09:00 Bisacodyl (Dulcolax Supp) 10 mg DAILY PRN RECTAL SEVERE CONSITIPATION; Start 02/25/17 at 21:15 Ceftriaxone Sodium 1000 mg/ Sodium Chloride 100 ml @ 200 mls/hr Q24H IV ; Start 02/26/17 at 21:00 Dextrose (D50w (Vial) Inj) 50 ml UNSCH PRN IV PUSH HYPOGLYCEMIA-SEE COMMENTS; Start 02/25/17 at 21:15 Glucagon (Glucagon Inj) 1 mg UNSCH PRN OTHER HYPOGLYCEMIA-SEE COMMENTS; Start 02/25/17 at 21:15 Insulin Aspart (NovoLOG SUPPLEMENTAL SCALE) 1 ACHS SLIDING SCALE SQ ; Start at 08:00 Lactulose (Lactulose Liq) 30 ml DAILY PRN PO SEVERE CONSITIPATION; Start 02/25 at 21:15 Magnesium Hydroxide (Milk Of Magnesia Liq) 30 ml Q12H PRN PO Mild constipation ; Start 02/25/17 at 21:15 Naloxone HCl (Narcan Inj) 0.4 mg UNSCH PRN IV PUSH SEE LABEL COMMENTS; Start 02/25/17 at 21:15 Ondansetron HCl (Zofran Inj) 4 mg Q6H PRN IVP NAUSEA OR VOMITING; Start at 21:15 Senna/Docusate Sodium (Lara-Colace) 1 tab BID PO ; Start 02/26/17 at 09:00 Sennosides (Senokot) 17.2 mg Q12H PRN PO Moderate constipation; Start at 21:15 Sodium Chloride (NS Flush) 2 ml BID IV FLUSH ; Start 02/26/17 at 09:00 Sodium Chloride ([place]) 2 spray Q4H PRN EACH NARE NASAL CONGESTION; Start 02/26/17 at 00:15 A/P Assessment and Plan A/P 1. Subdural hematoma with possible new small bleed CT of the head showed decrease in size of left-sided subdural collection with possible small acute component seen posteriorly Neurosurgery consulted, appreciate recommendations Repeat head CT today. Monitor for signs of mental status decline 2. UTI Rocephin follow the Urine culture. 3. Altered mental status Unclear etiology; may be secondary to subdural hematoma versus infectious Plan as above 4. Abdominal pain- seems to be improving. CT of the abdomen/pelvis with no acute process Monitor 5. HTN Continue home Norvasc 6. hyperthyroidism will start methimazole upon discharge. FEN Heart healthy diet Electrolytes: Monitor and replete when necessary Holding pharmacologic anticoagulation secondary to subdural hematoma PT consulted. Melanie Mcnair MD Feb 26, 2017 08:24
[2017-02-26 08:37] LABS: AUTOMATED NEUTROPHIL # 1.9 TH/MM3 (1.8-7.7); BASOPHIL % 0.4 % (0.0-2.0); EOSINOPHIL # 0.1 TH/MM3 (0-0.4); EOSINOPHIL % 1.8 % (0.0-4.0); HEMATOCRIT 27.6 % (35.0-46.0); HEMOGLOBIN 9.4 GM/DL (11.6-15.3); LYMPH % 37.3 % (9.0-44.0); LYMPHOCYTE # 1.7 TH/MM3 (1.0-4.8); MEAN CELL VOLUME 94.1 FL (80.0-100.0); MEAN PLATELET VOLUME 8.3 FL (7.0-11.0); MONO % 19.8 % (0.0-8.0); MONOCYTE # 0.9 TH/MM3 (0-0.9); NEUT % 40.7 % (16.0-70.0); PLATELET COUNT 262 TH/MM3 (150-450); RED BLOOD COUNT 2.93 MIL/MM3 (4.00-5.30); RED CELL DISTRIBUTION WIDTH 15.1 % (11.6-17.2); WHITE BLOOD COUNT 4.6 TH/MM3 (4.0-11.0)
[2017-02-26 09:04] LABS: BICARBONATE 29.1 MEQ/L (21.0-32.0); CALCIUM 8.5 MG/DL (8.5-10.1); CREATININE 0.37 MG/DL (0.50-1.00)
[2017-02-26] MEDS: DOCUSATE SODIUM 50 MG/SENNA 8.6 MG TAB PO SCH ×2 (09:05→20:06)
[2017-02-26] MEDS: amLODIPine BESYLATE 5 MG TAB PO SCH (09:05)
[2017-02-26] MEDS: SODIUM CHLORIDE 0.9% FLUSH 10 ML FLUSH IV FLUSH SCH ×2 (09:06→20:07)
--- NOTE | 2017-02-26 10:55 | HHI.NSPN ---
History Interval History 81-year-old female history of bilateral subdural hygroma/chronic hemorrhage left greater than right treated nonoperatively and followed by Dr. Taveras from neurosurgery. She has baseline confusion and also has normal-pressure hydrocephalus diagnosis. She presented with complaints of mild headache and abdominal pain in his follow-up CT scan of the head obtained reviewed shows a resolution of the right-sided subdural fluid collection and decrease in size of left side from 1.7 cm thickness to 1.3 cm thickness. I do not appreciate any acute hemorrhage. She is awake and alert and conversive although speaks [place] primary language but does communicate in [place] also. She relates the mild headache but no nausea vomiting or double vision no blurred vision or any numbness or paresthesias in the upper or lower extremities. Review of Systems General: Negative for: fever, chills, insomnia Respiratory: Negative for: shortness of breath, cough, sputum Cardiovascular: Negative for: chest pain, palpitations, orthopnea Gastrointestinal: Negative for: nausea, vomitting, diarrhea, constipation Genitourinary: Negative for: urinary burning, urinary frequency, urinary urgency Exam Results Vital Signs Date Time Temp Pulse Resp B/P (MAP) Pulse Ox O2 Delivery O2 Flow Rate FiO2 02/26/17 08:00 98.3 84 18 142/60 (87) 99 02/26/17 07:00 Room Air Intake and Output 02/26/17 02/26/17 02/27/17 08:00 16:00 00:00 Intake Total 280 ml Output Total 150 ml Balance 130 ml Physical Examination GENERAL: Well-nourished, well-developed elderly patient in bed in no acute distress. SKIN: Warm and dry. HEAD: Normocephalic and atraumatic. EYES: No scleral icterus. No injection or drainage. ENT: No nasal drainage noted. Mucous membranes pink. Airway patent. NECK: Supple, trachea midline. No JVD. CARDIOVASCULAR: Regular rate and rhythm without murmurs, gallops, or rubs. RESPIRATORY: Breath sounds equal bilaterally. No accessory muscle use. GASTROINTESTINAL: Abdomen soft, non-tender, nondistended. EXTREMITIES: No cyanosis or edema. BACK: Nontender without obvious deformity. No CVA tenderness. NEUROLOGICAL: Awake and alert. Pupils Equal and reactive. EOMI. Face symmetric. Tongue midline. Cranial nerves II through XII intact. Motor and sensory grossly within normal limits. Five out of 5 muscle strength in all muscle groups. Normal speech. Normal comprehension. DTR's symmetric. Negative Mosley' s reflex. Negative Babinski. Lab, Micro, Other Results Last Impressions Abdomen/Pelvis CT 02/25/172035 Signed Impressions: Service Date/Time: Saturday, February 25, 2017 20:55 - CONCLUSION: 1. No acute findings in the abdomen and pelvis. 2. Small layering calculi in the right side of the urinary bladder. 3. Status post cholecystectomy. 4. Lumbar spine degenerative findings. Job Malik MD Head CT 02/25/17 1800 Signed Impressions: Service Date/Time: Saturday, February 25, 2017 18:28 - CONCLUSION: 1. Decrease in size of left-sided frontoparietal subdural collection. Possible small acute component again seen posteriorly. 2. Right-sided frontoparietal subdural collection no longer seen. Job Malik MD Chest X-Ray 02/25/17 1800 Signed Impressions: Service Date/Time: Saturday, February 25, 2017 18:12 - CONCLUSION: No acute cardiopulmonary disease identified. Job Malik MD Laboratory Tests Test 02/25/17 18:08 02/25/17 18:20 02/26/17 06:45 White Blood Count 4.5 4.6 Red Blood Count 3.14 2.93 Hemoglobin 10.0 9.4 Hematocrit 29.6 27.6 Mean Corpuscular Volume 94.1 94.1 Mean Corpuscular Hemoglobin 31.9 32.0 Mean Corpuscular Hemoglobin Concent 33.9 34.0 Red Cell Distribution Width 15.0 15.1 Platelet Count 295 262 Mean Platelet Volume 7.9 8.3 Neutrophils (%) (Auto) 51.0 40.7 Lymphocytes (%) (Auto) 31.3 37.3 Monocytes (%) (Auto) 16.5 19.8 Eosinophils (%) (Auto) 0.7 1.8 Basophils (%) (Auto) 0.5 0.4 Neutrophils # (Auto) 2.3 1.9 Lymphocytes # (Auto) 1.4 1.7 Monocytes # (Auto) 0.7 0.9 Eosinophils # (Auto) 0.0 0.1 Basophils # (Auto) 0.0 0.0 CBC Comment DIFF FINAL DIFF FINAL Differential Comment Prothrombin Time 12.0 Prothromb Time International Ratio 1.2 Activated Partial Thromboplast Time 22.2 Blood Urea Nitrogen 19 17 Creatinine 0.45 0.37 Random Glucose 180 123 Total Protein 7.0 Albumin 2.2 Calcium Level 8.7 8.5 Alkaline Phosphatase 64 Aspartate Amino Transf (AST/SGOT) 27 Alanine Aminotransferase (ALT/SGPT) 19 Total Bilirubin 0.2 Sodium Level 144 142 Potassium Level 3.7 3.3 Chloride Level 107 108 Carbon Dioxide Level 30.6 29.1 Anion Gap 6 5 Estimat Glomerular Filtration Rate 134 168 Troponin I LESS THAN 0.02 Thyroid Stimulating Hormone 3rd Gen LESS THAN 0.005 Ethyl Alcohol Level LESS THAN 3 Urine Color YELLOW Urine Turbidity HAZY Urine pH 6.5 Urine Specific [place] 1.016 Urine Protein TRACE Urine Glucose (UA) NEG Urine Ketones NEG Urine Occult Blood NEG Urine Nitrite NEG Urine Bilirubin NEG Urine Urobilinogen LESS THAN 2.0 Urine Leukocyte Esterase MOD Urine RBC 1 Urine WBC 8 Urine Squamous Epithelial Cells 4 Urine Transitional Epithelial Cells <1 Urine Amorphous Sediment RARE Urine Hyaline Casts 1 Urine Mucus FEW Microscopic Urinalysis Comment CATH-CULTURE IND Urine Opiates Screen NEG Urine Barbiturates Screen NEG Urine Amphetamines Screen NEG Urine Benzodiazepines Screen NEG Urine Cocaine Screen NEG Urine Cannabinoids Screen NEG Date/Time Source Procedure Growth Status 02/25/17 18:20 Urine Clean Catch Urine Culture Pending Received Medical Decision Making Impression and Plan 81-year-old lady with chronic left subdural hygroma/hemorrhage which on follow- up CT scan this admission has decreased in size and the right-sided subdural hygroma has resolved. She has baseline confusion. Recommend continued observation of this improving subdural collection. No neurosurgical intervention needed. Follow-up with Dr. Taveras in clinic as scheduled. Andres Gamboa MD Feb 26, 2017 10:55
--- NOTE | 2017-02-26 11:32 | HHI.FF ---
Face to Face Verification Diagnosis: (1) ICH (intracerebral hemorrhage) Physical Therapy Order: Evaluate and Treat Home Health Nursing Order: Medical education Signs/symptoms of disease process Nursing assessment with vital signs I have seen patient Janina Matthew on 02/26/17. My clinical findings support the need for the requested home health care services because: Ltd mobility - disease progression I certify that my clinical findings support that this patient is homebound because: Unsteady gait/balance Melanie Mcnair MD Feb 26, 2017 11:32
--- NOTE | 2017-02-26 19:41 | RADRPT ---
EXAM DATE/TIME: 02/26/2017 19:01 [facility] COMPARISON: CT BRAIN W/O CONTRAST, February 25, 2017, 18:28. INDICATIONS : Follow up subdural hematoma. RADIATION DOSE: 48.24 CTDIvol (mGy) MEDICAL HISTORY : Diabetes mellitus type 2. Cerebrovascular disease. Seizures.Hypertension SURGICAL HISTORY : Appendectomy. Cholecystectomy.Tubal ligation. ENCOUNTER: Initial ACUITY: 2 weeks PAIN SCALE: 3/10 LOCATION: cranial TECHNIQUE: Multiple contiguous axial images were obtained of the head. Using automated exposure control and adj ustment of the mA and/or kV according to patient size, radiation dose was kept as low as reasonably a chievable to obtain optimal diagnostic quality images. DICOM format image data is available electro nically for review and comparison. FINDINGS: CEREBRUM: Left-sided subdural fluid collection is unchanged measuring 1.2 cm in thickness. It is again mildly h eterogeneous. No evidence of new hemorrhage, new mass effect, or midline shift. No evidence of infarc t or intracranial mass. POSTERIOR FOSSA: The cerebellum and brainstem are intact. The 4th ventricle is midline. The cerebellopontine angle i s unremarkable. EXTRACRANIAL: The visualized portion of the orbits is intact. SKULL: The calvaria is intact. No evidence of skull fracture. CONCLUSION: No significant interval change. 1.2 cm left frontoparietal subdural collection unchanged. Job Malik MD on February 26, 2017 at 19:38 Board Certified Radiologist. This report was verified electronically.
[2017-02-26] MEDS: cefTRIAXone INJ 1,000 MG in SODIUM CHLORIDE 0.9% INJ 100 ML IV SCH (20:06)
[2017-02-26] MEDS: ONDANSETRON HCL 4 MG/2 ML VIAL IVP PRN (20:07)
--- NOTE | 2017-02-26 21:56 | EKG ---
Date Performed: 02/25/2017 Time Performed: 18:55:53 PTAGE: 81 years EKG: Sinus rhythm NONSPECIFIC ST & T-WAVE ABNORMALITY BORDERLINE ECG PREVIOUS TRACING : 02/14/2017 15.06 Compared to prior tracing no significant change DOCTOR: Cale Cordero Interpretating Date/Time 02/26/2017 21:54:42
[2017-02-27] VITALS (13 sets, daily range): BP systolic 87–168; BP diastolic 53–71; PULSE 72–135; RESP 16–21; TEMP 97.8–99; O2SAT 96–100
[2017-02-27] MEDS: ONDANSETRON HCL 4 MG/2 ML VIAL IVP PRN (02:33)
[2017-02-27] MEDS: INSULIN ASPART SUPPLEMENTAL SCALE SQ SCH ×4 (07:48→20:48)
[2017-02-27] MEDS: SODIUM CHLORIDE 0.9% FLUSH 10 ML FLUSH IV FLUSH SCH ×2 (08:28→20:48)
[2017-02-27] MEDS: amLODIPine BESYLATE 5 MG TAB PO SCH (08:28)
[2017-02-27] MEDS: DOCUSATE SODIUM 50 MG/SENNA 8.6 MG TAB PO SCH ×2 (08:28→20:48)
--- NOTE | 2017-02-27 09:34 | HHI.PR ---
Subjective Remarks in no acute distress. but noted that was tachycardic with the HR in 140's. denies chest pain or sob. d/w the RN. Objective Vitals Vital Signs Date Time Temp Pulse Resp B/P (MAP) Pulse Ox O2 Delivery O2 Flow Rate FiO2 02/27/17 08:05 97.8 135 21 168/71 (103) 100 02/27/17 07:00 100 Room Air 02/27/17 04:00 Room Air 02/27/17 04:00 97.9 89 16 155/68 (97) 97 02/27/17 03:54 72 02/27/17 00:02 75 02/27/17 00:00 98.3 82 16 118/56 (76) 99 02/27/17 00:00 Room Air 02/26/17 20:10 Room Air 02/26/17 20:00 98.5 78 16 134/63 (86) 98 02/26/17 16:00 81 02/26/17 16:00 98.1 91 18 132/60 (84) 97 02/26/17 12:00 76 02/26/17 11:51 98.3 85 18 111/53 (72) 99 I/O 02/26/17 02/26/17 02/26/17 02/27/17 02/27/17 02/27/17 07:00 15:00 23:00 07:00 15:00 23:00 Intake Total 280 ml 600 ml 240 ml Output Total 150 ml 400 ml Balance 130 ml 600 ml -160 ml Intake Oral 280 ml 600 ml 240 ml Output Urine Total 150 ml 400 ml # Voids 2 # Bowel Movements 0 Result Diagram: 02/26/17 0645 02/26/17 0645 Imaging Last Impressions Head CT 02/26/17 1800 Signed Impressions: Service Date/Time: Sunday, February 26, 2017 19:01 - CONCLUSION: No significant interval change. 1.2 cm left frontoparietal subdural collection unchanged. Job Malik MD Abdomen/Pelvis CT 02/25/172035 Signed Impressions: Service Date/Time: Saturday, February 25, 2017 20:55 - CONCLUSION: 1. No acute findings in the abdomen and pelvis. 2. Small layering calculi in the right side of the urinary bladder. 3. Status post cholecystectomy. 4. Lumbar spine degenerative findings. Job Malik MD Chest X-Ray 02/25/17 1800 Signed Impressions: Service Date/Time: Saturday, February 25, 2017 18:12 - CONCLUSION: No acute cardiopulmonary disease identified. Job Malik MD Objective Remarks GENERAL: This is a well-nourished, well-developed patient, in no apparent distress. CARDIOVASCULAR: Regular rate and regular rhythm without murmurs, gallops, or rubs. RESPIRATORY: Clear to auscultation. Breath sounds equal bilaterally. No wheezes , rales, or rhonchi. GASTROINTESTINAL: Abdomen soft, non-tender, nondistended. Normal, active bowel sounds MUSCULOSKELETAL: Extremities without clubbing, cyanosis, or edema. NEURO: Awake and alert Medications and IVs Inpatient Medications Acetaminophen (Tylenol) 650 mg Q4H PRN PO TEMP > 100.4, pain 1-6 Last administered on 02/26/17 17:39; Start 02/25/17 at 21:15 Amlodipine Besylate (Norvasc) 5 mg DAILY PO Last administered on 02/27/17 08: 28; Start 02/26/17 at 09:00 Bisacodyl (Dulcolax Supp) 10 mg DAILY PRN RECTAL SEVERE CONSITIPATION; Start 02/25/17 at 21:15 Ceftriaxone Sodium 1000 mg/ Sodium Chloride 100 ml @ 200 mls/hr Q24H IV Last administered on 02/26/17 20:06; Start 02/26/17 at 21:00 Dextrose (D50w (Vial) Inj) 50 ml UNSCH PRN IV PUSH HYPOGLYCEMIA-SEE COMMENTS; Start 02/25/17 at 21:15 Glucagon (Glucagon Inj) 1 mg UNSCH PRN OTHER HYPOGLYCEMIA-SEE COMMENTS; Start 02/25/17 at 21:15 Insulin Aspart (NovoLOG SUPPLEMENTAL SCALE) 1 ACHS SLIDING SCALE SQ ; Start at 08:00 Lactulose (Lactulose Liq) 30 ml DAILY PRN PO SEVERE CONSITIPATION; Start 02/25 at 21:15 Magnesium Hydroxide (Milk Of Magnesia Liq) 30 ml Q12H PRN PO Mild constipation ; Start 02/25/17 at 21:15 Naloxone HCl (Narcan Inj) 0.4 mg UNSCH PRN IV PUSH SEE LABEL COMMENTS; Start 02/25/17 at 21:15 Ondansetron HCl (Zofran Inj) 4 mg Q6H PRN IVP NAUSEA OR VOMITING Last administered on 02/27/17 02:33; Start 02/25/17 at 21:15 Senna/Docusate Sodium (Lara-Colace) 1 tab BID PO Last administered on 08:28; Start 02/26/17 at 09:00 Sennosides (Senokot) 17.2 mg Q12H PRN PO Moderate constipation; Start at 21:15 Sodium Chloride (NS Flush) 2 ml BID IV FLUSH Last administered on 02/27/17 08 :28; Start 02/26/17 at 09:00 Sodium Chloride ([place] Seb [place]) 2 spray Q4H PRN EACH NARE NASAL CONGESTION; Start 02/26/17 at 00:15 A/P Assessment and Plan A/P 1. Subdural hematoma CT of the head showed decrease in size of left-sided subdural collection with possible small acute component seen posteriorly repeated CT head with no significant change. Neurosurgery consulted and recommended f/u with in the clinic; no interventions needed at this time. 2. UTI Rocephin follow the Urine culture. 3. Altered mental status- seems to be improving; some confusion at baseline. Unclear etiology; may be secondary to subdural hematoma versus infectious Plan as above 4. Abdominal pain- seems to be improving. CT of the abdomen/pelvis with no acute process Monitor 5. HTN Continue home Norvasc 6. hyperthyroidism will start methimazole upon discharge. 7. tachycardia- check EKG- continue to monitor on telemetry today. FEN Heart healthy diet Electrolytes: Monitor and replete when necessary Holding pharmacologic anticoagulation secondary to subdural hematoma PT consulted. Discharge Planning possible dc home tomorrow if stable. case management for HHC. d/w the next-of-kin today. Melanie Mcnair MD Feb 27, 2017 09:34
[2017-02-27] MEDS: cefTRIAXone INJ 1,000 MG in SODIUM CHLORIDE 0.9% INJ 100 ML IV SCH (20:48)
[2017-02-28] VITALS (8 sets, daily range): BP systolic 139–164; BP diastolic 58–81; PULSE 68–117; RESP 17–20; TEMP 97.8–99.2; O2SAT 94–99
[2017-02-28] MEDS: INSULIN ASPART SUPPLEMENTAL SCALE SQ SCH ×4 (08:00→21:00)
--- NOTE | 2017-02-28 09:31 | HHI.PR ---
Subjective Remarks in no acute distress. but complaining of on and off palpitations and hand tremors. HR trend noted. Objective Vitals Vital Signs Date Time Temp Pulse Resp B/P (MAP) Pulse Ox O2 Delivery O2 Flow Rate FiO2 02/28/17 04:00 84 02/28/17 04:00 98.0 90 19 141/58 (85) 95 02/28/17 00:00 117 02/28/17 00:00 99.2 101 20 139/81 (100) 94 02/27/17 22:41 98.8 106 20 143/64 (90) 96 02/27/17 20:00 99 02/27/17 20:00 Room Air 02/27/17 20:00 99.0 101 21 160/69 (99) 97 02/27/17 16:07 98.8 88 21 124/67 (86) 99 02/27/17 16:00 114 02/27/17 13:47 97 132/61 (84) 98 02/27/17 13:07 97.8 97 21 87/53 (64) 97 02/27/17 12:00 109 I/O 02/27/17 02/27/17 02/27/17 02/28/17 02/28/17 02/28/17 07:00 15:00 23:00 07:00 15:00 23:00 Intake Total 240 ml 140 ml 480 ml Output Total 400 ml 400 ml Balance -160 ml 140 ml 80 ml Intake Oral 240 ml 140 ml 480 ml Output Urine Total 400 ml 400 ml # Voids 2 # Bowel Movements 0 0 0 Result Diagram: 02/26/17 0645 02/26/17 0645 Imaging Last Impressions Head CT 02/26/17 1800 Signed Impressions: Service Date/Time: Sunday, February 26, 2017 19:01 - CONCLUSION: No significant interval change. 1.2 cm left frontoparietal subdural collection unchanged. Job Malik MD Abdomen/Pelvis CT 02/25/172035 Signed Impressions: Service Date/Time: Saturday, February 25, 2017 20:55 - CONCLUSION: 1. No acute findings in the abdomen and pelvis. 2. Small layering calculi in the right side of the urinary bladder. 3. Status post cholecystectomy. 4. Lumbar spine degenerative findings. Job Malik MD Chest X-Ray 02/25/17 1800 Signed Impressions: Service Date/Time: Saturday, February 25, 2017 18:12 - CONCLUSION: No acute cardiopulmonary disease identified. Job Malik MD Objective Remarks GENERAL: This is a well-nourished, well-developed patient, in no apparent distress. CARDIOVASCULAR: Regular rate and regular rhythm without murmurs, gallops, or rubs. RESPIRATORY: Clear to auscultation. Breath sounds equal bilaterally. No wheezes , rales, or rhonchi. GASTROINTESTINAL: Abdomen soft, non-tender, nondistended. Normal, active bowel sounds MUSCULOSKELETAL: Extremities without clubbing, cyanosis, or edema. NEURO: Awake and alert Medications and IVs Inpatient Medications Acetaminophen (Tylenol) 650 mg Q4H PRN PO TEMP > 100.4, pain 1-6 Last administered on 02/26/17 17:39; Start 02/25/17 at 21:15 Amlodipine Besylate (Norvasc) 5 mg DAILY PO Last administered on 02/27/17 08: 28; Start 02/26/17 at 09:00 Bisacodyl (Dulcolax Supp) 10 mg DAILY PRN RECTAL SEVERE CONSITIPATION; Start 02/25/17 at 21:15 Ceftriaxone Sodium 1000 mg/ Sodium Chloride 100 ml @ 200 mls/hr Q24H IV Last administered on 02/27/17 20:48; Start 02/26/17 at 21:00 Dextrose (D50w (Vial) Inj) 50 ml UNSCH PRN IV PUSH HYPOGLYCEMIA-SEE COMMENTS; Start 02/25/17 at 21:15 Glucagon (Glucagon Inj) 1 mg UNSCH PRN OTHER HYPOGLYCEMIA-SEE COMMENTS; Start 02/25/17 at 21:15 Insulin Aspart (NovoLOG SUPPLEMENTAL SCALE) 1 ACHS SLIDING SCALE SQ ; Start at 08:00 Lactulose (Lactulose Liq) 30 ml DAILY PRN PO SEVERE CONSITIPATION; Start 02/25 at 21:15 Magnesium Hydroxide (Milk Of Magnesia Liq) 30 ml Q12H PRN PO Mild constipation ; Start 02/25/17 at 21:15 Naloxone HCl (Narcan Inj) 0.4 mg UNSCH PRN IV PUSH SEE LABEL COMMENTS; Start 02/25/17 at 21:15 Ondansetron HCl (Zofran Inj) 4 mg Q6H PRN IVP NAUSEA OR VOMITING Last administered on 02/27/17 02:33; Start 02/25/17 at 21:15 Senna/Docusate Sodium (Lara-Colace) 1 tab BID PO Last administered on 20:48; Start 02/26/17 at 09:00 Sennosides (Senokot) 17.2 mg Q12H PRN PO Moderate constipation; Start at 21:15 Sodium Chloride (NS Flush) 2 ml BID IV FLUSH Last administered on 02/27/17 20 :48; Start 02/26/17 at 09:00 Sodium Chloride ([place] Seb [place]) 2 spray Q4H PRN EACH NARE NASAL CONGESTION; Start 02/26/17 at 00:15 A/P Assessment and Plan A/P 1. Subdural hematoma CT of the head showed decrease in size of left-sided subdural collection with possible small acute component seen posteriorly repeated CT head with no significant change. Neurosurgery consulted and recommended f/u with in the clinic; no interventions needed at this time. 2. questionable UTI- UC with mixed fliora- will stop antibiotic. 3. Altered mental status- seems to be improving; some confusion at baseline. Plan as above. 4. Abdominal pain- seems to be improving. CT of the abdomen/pelvis with no acute process Monitor 5. HTN hold norvasc and start metoprolol. 6. hyperthyroidism will start methimazole upon discharge. 7. tachycardia/hand tremors- likely due hyperthyroidism start on Methimazole and metoprolol. of note I had a discussion with ( recent admission); and recommended that the patient be started on Methimazole with outpatient f/u. continue to monitor. FEN Heart healthy diet Electrolytes: Monitor and replete when necessary Holding pharmacologic anticoagulation secondary to subdural hematoma PT consulted. Discharge Planning dc home within the next 24 hrs if stable with better HR control. case management for [facility]. Melanie Mcnair MD Feb 28, 2017 09:31
[2017-02-28] MEDS: SODIUM CHLORIDE 0.9% FLUSH 10 ML FLUSH IV FLUSH SCH ×2 (10:39→20:40)
[2017-02-28] MEDS: DOCUSATE SODIUM 50 MG/SENNA 8.6 MG TAB PO SCH ×2 (10:39→20:40)
[2017-02-28] MEDS: METOPROLOL TARTRATE 25 MG TAB PO SCH ×2 (10:39→20:40)
[2017-02-28] MEDS: METHIMAZOLE 5 MG TAB PO SCH ×2 (12:10→20:40)
--- NOTE | 2017-02-28 17:39 | EKG ---
Date Performed: 02/27/2017 Time Performed: 12:53:38 PTAGE: 81 years EKG: Sinus tachycardia. Baseline artifact precluding any further interpretation Borderline ECG PREVIOUS TRACING : 02/27/2017 09.34 DOCTOR: Ivanna Blanc Interpretating Date/Time 02/28/2017 17:37:29
--- NOTE | 2017-02-28 17:39 | EKG ---
Date Performed: 02/27/2017 Time Performed: 09:34:40 PTAGE: 81 years EKG: Sinus arrhythmia. Baseline artifact, precluding accurate interpretation Abnormal ECG Since PREVIOUS TRACING , no significant change noted PREVIOUS TRACING DOCTOR: Ivanna Blanc Interpretating Date/Time 02/28/2017 17:37:01
--- NOTE | 2017-02-28 17:40 | EKG ---
Date Performed: 02/27/2017 Time Performed: 20:58:18 PTAGE: 81 years EKG: Sinus tachycardia Nonspecific ST-T changes Abnormal ECG Since PREVIOUS TRACING , no significant change noted PREVIOUS TRACIN02/27/2017 12.53 DOCTOR: Ivanna Blanc Interpretating Date/Time 02/28/2017 17:38:07
[2017-02-28] MEDS: ACETAMINOPHEN 325 MG TAB PO PRN (22:03)
[2017-02-28] MEDS: ONDANSETRON HCL 4 MG/2 ML VIAL IVP PRN (22:12)
[2017-03-01] VITALS: BP 137/64; PULSE 71; RESP 17; TEMP 98.8; O2SAT 98
[2017-03-01 03:44] VITALS: PULSE 71
[2017-03-01 04:00] VITALS: BP 167/71; PULSE 80; RESP 17; TEMP 98; O2SAT 100
[2017-03-01] MEDS: ONDANSETRON HCL 4 MG/2 ML VIAL IVP PRN (04:58)
[2017-03-01] MEDS: ACETAMINOPHEN 325 MG TAB PO PRN (04:58)
[2017-03-01] MEDS: INSULIN ASPART SUPPLEMENTAL SCALE SQ SCH ×2 (08:00→12:00)
[2017-03-01 08:07] VITALS: BP 150/79; PULSE 99; RESP 18; TEMP 98.1; O2SAT 100
[2017-03-01] MEDS: METHIMAZOLE 5 MG TAB PO SCH (08:18)
[2017-03-01] MEDS: SODIUM CHLORIDE 0.9% FLUSH 10 ML FLUSH IV FLUSH SCH (08:18)
[2017-03-01] MEDS: METOPROLOL TARTRATE 25 MG TAB PO SCH (08:18)
[2017-03-01] MEDS: DOCUSATE SODIUM 50 MG/SENNA 8.6 MG TAB PO SCH (08:22)
--- NOTE | 2017-03-01 10:46 | HHI.PR ---
Subjective Remarks No new complaints Has some abdominal pain she states Has not had a good bowel movement she states Discussed with patient and RN May needs SNF versus home health care [facility] WITH [facility] Objective Vitals Vital Signs Date Time Temp Pulse Resp B/P (MAP) Pulse Ox O2 Delivery O2 Flow Rate FiO2 03/01/17 08:07 98.1 99 18 150/79 (102) 100 03/01/17 04:00 98.0 80 17 167/71 (103) 100 03/01/17 04:00 Room Air 03/01/17 03:44 71 03/01/17 00:00 Room Air 03/01/17 00:00 98.8 71 17 137/64 (88) 98 02/28/17 23:47 68 02/28/17 20:00 Room Air 02/28/17 20:00 98.4 84 17 164/72 (102) 97 02/28/17 19:47 82 02/28/17 16:00 86 02/28/17 12:00 98.2 79 20 151/70 (97) 98 02/28/17 12:00 92 I/O 02/28/17 02/28/17 02/28/17 03/01/17 03/01/17 03/01/17 07:00 15:00 23:00 07:00 15:00 23:00 Intake Total 480 ml 610 ml Output Total 400 ml Balance 80 ml 610 ml Intake Oral 480 ml 610 ml Output Urine Total 400 ml # Voids 1 1 4 # Bowel Movements 0 2 Result Diagram: 02/26/17 0645 02/26/17 0645 Imaging Last Impressions Head CT 02/26/17 1800 Signed Impressions: Service Date/Time: Sunday, February 26, 2017 19:01 - CONCLUSION: No significant interval change. 1.2 cm left frontoparietal subdural collection unchanged. Job Malik MD Abdomen/Pelvis CT 02/25/172035 Signed Impressions: Service Date/Time: Saturday, February 25, 2017 20:55 - CONCLUSION: 1. No acute findings in the abdomen and pelvis. 2. Small layering calculi in the right side of the urinary bladder. 3. Status post cholecystectomy. 4. Lumbar spine degenerative findings. Job Malik MD Chest X-Ray 02/25/17 1800 Signed Impressions: Service Date/Time: Saturday, February 25, 2017 18:12 - CONCLUSION: No acute cardiopulmonary disease identified. Job Malik MD Objective Remarks GENERAL: Awake alert oriented talkative and cooperative SKIN: Warm and dry. HEAD: Atraumatic. Normocephalic. EYES: Pupils equal and round. No scleral icterus. No injection or drainage. Extraocular muscles intact ENT: No nasal bleeding or discharge. Mucous membranes pink and moist. Tongue is midline NECK: Trachea midline. No JVD. CARDIOVASCULAR: Regular rate and rhythm. S1 and S2 no S3 or S4 RESPIRATORY: No accessory muscle use. Clear to auscultation. Breath sounds equal bilaterally. GASTROINTESTINAL: Abdomen soft, non-tender, nondistended. Hepatic and splenic margins not palpable. Mild tenderness MUSCULOSKELETAL: Extremities without clubbing, cyanosis, or edema. No obvious deformities. NEUROLOGICAL: Awake and alert. No obvious cranial nerve deficits. Motor grossly within normal limits. 4 out of 5 muscle strength in the arms and legs. Normal speech. PSYCHIATRIC: Appropriate mood and affect; insight and judgment normal. Procedures None this admission Medications and IVs Current Medications Sodium Chloride (NS Flush) 2 ml UNSCH PRN IV FLUSH FLUSH AFTER USING IV ACCESS ; Start 02/25/17 at 18:00; Stop 02/25/17 at 21:24; Status DC Ondansetron HCl (Zofran Inj) 4 mg ONCE ONCE IV PUSH Last administered on 02/25 21:09; Start 02/25/17 at 20:45; Stop 02/25/17 at 20:46; Status DC Ceftriaxone Sodium 1000 mg/ Sodium Chloride 100 ml @ 200 mls/hr ONCE ONCE IV Last administered on 02/25/17 21:08; Start 02/25/17 at 21:00; Stop 02/25/17 at 21:29; Status DC Ceftriaxone Sodium 1000 mg/ Sodium Chloride 100 ml @ 200 mls/hr Q24H IV Last administered on 02/27/17 20:48; Start 02/26/17 at 21:00; Stop 02/28/17 at 09 :34; Status DC Sodium Chloride (NS Flush) 2 ml UNSCH PRN IV FLUSH FLUSH AFTER USING IV ACCESS ; Start 02/25/17 at 21:15 Sodium Chloride (NS Flush) 2 ml BID IV FLUSH Last administered on 03/01/17 08 :18; Start 02/26/17 at 09:00 Acetaminophen (Tylenol) 650 mg Q4H PRN PO TEMP > 100.4, pain 1-6 Last administered on 03/01/17 04:58; Start 02/25/17 at 21:15 Ondansetron HCl (Zofran Inj) 4 mg Q6H PRN IVP NAUSEA OR VOMITING Last administered on 03/01/17 04:58; Start 02/25/17 at 21:15 Naloxone HCl (Narcan Inj) 0.4 mg UNSCH PRN IV PUSH SEE LABEL COMMENTS; Start 02/25/17 at 21:15 Senna/Docusate Sodium (Lara-Colace) 1 tab BID PO Last administered on 08:22; Start 02/26/17 at 09:00 Magnesium Hydroxide (Milk Of Magnesia Liq) 30 ml Q12H PRN PO Mild constipation ; Start 02/25/17 at 21:15 Sennosides (Senokot) 17.2 mg Q12H PRN PO Moderate constipation; Start at 21:15 Bisacodyl (Dulcolax Supp) 10 mg DAILY PRN RECTAL SEVERE CONSITIPATION; Start 02/25/17 at 21:15 Lactulose (Lactulose Liq) 30 ml DAILY PRN PO SEVERE CONSITIPATION; Start 02/25 at 21:15 Amlodipine Besylate (Norvasc) 5 mg DAILY PO Last administered on 02/27/17 08: 28; Start 02/26/17 at 09:00; Status Future Hold Dextrose (D50w (Vial) Inj) 50 ml UNSCH PRN IV PUSH HYPOGLYCEMIA-SEE COMMENTS; Start 02/25/17 at 21:15 Glucagon (Glucagon Inj) 1 mg UNSCH PRN OTHER HYPOGLYCEMIA-SEE COMMENTS; Start 02/25/17 at 21:15 Insulin Aspart (NovoLOG SUPPLEMENTAL SCALE) 1 ACHS SLIDING SCALE SQ ; Start at 08:00 Sodium Chloride ([place]) 2 spray Q4H PRN EACH NARE NASAL CONGESTION Last administered on 03/01/17 08:19; Start 02/26/17 at 00:15 Metoprolol Tartrate (Lopressor) 25 mg Q12HR PO Last administered on 03/01/17 08:18; Start 02/28/17 at 10:00 Methimazole (Tapazole) 5 mg Q12HR PO Last administered on 03/01/17t 08:18; Start 02/28/17 at 11:00 A/P Assessment and Plan 1. Subdural hematoma CT of the head showed decrease in size of left-sided subdural collection with possible small acute component seen posteriorly repeated CT head with no significant change. Neurosurgery consulted and recommended f/u with in the clinic; no interventions needed at this time. 2. questionable UTI- UC with mixed fliora- will stop antibiotic. Not on antibiotics at this time 3. Altered mental status- seems to be improving; some confusion at baseline. Plan as above. 4. Abdominal pain- seems to be improving. CT of the abdomen/pelvis with no acute process Monitor 5. HTN hold norvasc and start metoprolol. 6. hyperthyroidism will start methimazole upon discharge. 7. tachycardia/hand tremors- likely due hyperthyroidism start on Methimazole and metoprolol. of note I had a discussion with ( recent admission); and recommended that the patient be started on Methimazole with outpatient f/u. continue to monitor. FEN Heart healthy diet Electrolytes: Monitor and replete when necessary Holding pharmacologic anticoagulation secondary to subdural hematoma PT consulted. Discharge Planning dc home within the next 24 hrs if stable with better HR control. case management for HHC. Discharge Planning Possible home with home health care at discharge Jose Reynoso DO Mar 01, 2017 10:46
[2017-03-01] MEDS ORDERED: POTASSIUM CHLORIDE 20 MEQ CONTROLLED RELEASE TAB PO ONE (11:00)
--- NOTE | 2017-03-01 11:18 | HHI.FF ---
Face to Face Verification Diagnosis: (1) ICH (intracerebral hemorrhage) (2) Altered mental status (3) Abdominal pain (4) Hypertension (5) Diabetes Physical Therapy Order: Evaluate and Treat, Improve ambulation, Strength and gait training Occupational Therapy Order: Evaluate and Treat, Improve ADL, Gross motor coordination, Fine motor coordination Home Health Nursing Order: Nursing assessment with vital signs Home Health Aide Order: To Assist In: Bathing and personal care, tree girdler and meal prep I have seen patient Janina Matthew on 03/01/17. My clinical findings support the need for the requested home health care services because: Ltd mobility - disease progression Med compliance is questionable I certify that my clinical findings support that this patient is homebound because: Impaired cognitive ability/safety Unsteady gait/balance Jose Reynoso DO Mar 01, 2017 11:18
[2017-03-01] MEDS ORDERED: METO25TA3 PO (11:21)
[2017-03-01] MEDS ORDERED: WALKER/ADULT/FO1 MIS (11:21)
[2017-03-01] MEDS ORDERED: Lactulose Liq PO (11:21)
[2017-03-01] MEDS ORDERED: METH5 PO (11:21)
[2017-03-01] MEDS ORDERED: AMLO5 PO (11:21)
[2017-03-01] MEDS ORDERED: METF500T PO (11:21)
[2017-03-01] MEDS ORDERED: SENN187 PO (11:21)
--- NOTE | 2017-03-01 11:27 | HHI.DS ---
Discharge Summary Admission Date Feb 25, 2017 at 20:49 Discharge Date: Mar 01, 2017 Admitting Diagnosis ICH, AMS (1) Hypertension ICD Code: I10 - Essential (primary) hypertension Diagnosis: Secondary Status: Chronic (2) Altered mental status ICD Code: R41.82 - Altered mental status, unspecified Diagnosis: Principal (3) Diabetes ICD Code: E11.9 - Type 2 diabetes mellitus without complications Diagnosis: Secondary Status: Chronic (4) ICH (intracerebral hemorrhage) ICD Code: I61.9 - Nontraumatic intracerebral hemorrhage, unspecified Diagnosis: Principal Status: Acute (5) UTI (urinary tract infection) ICD Code: N39.0 - Urinary tract infection, site not specified Diagnosis: Principal Status: Acute (6) Constipation ICD Code: K59.00 - Constipation, unspecified Diagnosis: Principal Status: Chronic Procedures None this admission Brief History - From Admission 81-year-old female discharged on 02/18 where she was treated for subdural hematoma with a small hemorrhagic conversion was brought to the emergency department for evaluation of altered mental status. Per ED notes, the patient was normal around noon yesterday and was found to be confused around 4 PM. At the time of our interview, the patient is able to tell me her name but not her current location or the year. She complains of a headache and suprapubic abdominal pain. Head CT showed a decrease in the size of the left-sided frontoparietal subdural collection with a possible small acute component again seen posteriorly. CT of the abdomen/pelvis showed no acute findings. UA consistent with UTI. CBC/BMP: 02/26/17 0645 02/26/17 0645 Imaging Last Impressions Head CT 02/26/17 1800 Signed Impressions: Service Date/Time: Sunday, February 26, 2017 19:01 - CONCLUSION: No significant interval change. 1.2 cm left frontoparietal subdural collection unchanged. Job Malik MD Abdomen/Pelvis CT 02/25/176 Signed Impressions: Service Date/Time: Saturday, February 25, 2017 20:55 - CONCLUSION: 1. No acute findings in the abdomen and pelvis. 2. Small layering calculi in the right side of the urinary bladder. 3. Status post cholecystectomy. 4. Lumbar spine degenerative findings. Job Malik MD Chest X-Ray 02/25/17 1800 Signed Impressions: Service Date/Time: Saturday, February 25, 2017 18:12 - CONCLUSION: No acute cardiopulmonary disease identified. Job Malik MD PE at Discharge GENERAL: Awake alert oriented talkative and cooperative SKIN: Warm and dry. HEAD: Atraumatic. Normocephalic. EYES: Pupils equal and round. No scleral icterus. No injection or drainage. Extraocular muscles intact ENT: No nasal bleeding or discharge. Mucous membranes pink and moist. Tongue is midline NECK: Trachea midline. No JVD. CARDIOVASCULAR: Regular rate and rhythm. S1 and S2 no S3 or S4 RESPIRATORY: No accessory muscle use. Clear to auscultation. Breath sounds equal bilaterally. GASTROINTESTINAL: Abdomen soft, non-tender, nondistended. Hepatic and splenic margins not palpable. Mild tenderness MUSCULOSKELETAL: Extremities without clubbing, cyanosis, or edema. No obvious deformities. NEUROLOGICAL: Awake and alert. No obvious cranial nerve deficits. Motor grossly within normal limits. 4 out of 5 muscle strength in the arms and legs. Normal speech. PSYCHIATRIC: Appropriate mood and affect; insight and judgment normal. Hospital Course 81-year-old female discharged on 02/18 where she was treated for subdural hematoma with a small hemorrhagic conversion was brought to the emergency department for evaluation of altered mental status. Per ED notes, the patient was normal around noon yesterday and was found to be confused around 4 PM. At the time of our interview, the patient is able to tell me her name but not her current location or the year. She complains of a headache and suprapubic abdominal pain. Head CT showed a decrease in the size of the left-sided frontoparietal subdural collection with a possible small acute component again seen posteriorly. CT of the abdomen/pelvis showed no acute findings. UA consistent with UTI. No new complaints Has some abdominal pain she states Has not had a good bowel movement she states Discussed with patient and RN May needs SNF versus home health care SWITCH TO PO MEDS AND SET UP HHC AND DC TO HOME Pt Condition on Discharge: Good Discharge Disposition: Disch w/ Home Health Serv Discharge Time: > 30 minutes Discharge Instructions DIET: Follow Instructions for: Heart Healthy Diet, Diabetic Diet Speech Therapy-Diet Recommends: Regular Activities you can perform: Weight Bearing as Pam Follow up Referrals: Neurosurgery PCP Follow-up New Medications: Methimazole (Tapazole) 5 Mg Tab 5 MG PO Q12HR for Thyroid, #60 TAB Metoprolol Tartrate (Metoprolol Tartrate) 25 Mg Tab 25 MG PO Q12HR for Blood Pressure Management, #60 TAB Sennosides (Senna-Lax) 8.6 Mg Tab 17.2 MG PO Q12H PRN for Moderate constipation, #120 TAB [Lactulose Liq] () 30 ML SYRP 30 ML PO DAILY PRN for SEVERE CONSITIPATION, #900 ML Continued Medications: Amlodipine (Norvasc) 5 Mg Tab 5 MG PO DAILY for Blood Pressure Management for 30 Days, #30 TAB (This prescription has been renewed) Metformin (Metformin) 500 Mg Tab 500 MG PO DAILY for Blood Sugar Management, #30 TAB 0 Refills (This prescription has been renewed) With a meal Walker/Adult/Folding (Walker/Adult/Folding) 1 Mis Mis EA .ROUTE DIRECTED PRN for unsteady gait, #1 0 Refills (This prescription has been renewed) Jose Reynoso DO Mar 01, 2017 11:27
[2017-03-01 12:12] VITALS: BP 143/62; PULSE 76; RESP 18; TEMP 98.2; O2SAT 99
== END 2017-03-01 14:37 | disposition home or self-care (01) | DRG 65 ==
LOC: NEPC 17:35 → NEDA 20:49 → N04A 22:23
PROVIDERS: ADMIT Hospitalist; ATTEND Hospitalist
DX: I62.03 Nontraumatic chronic subdural hemorrhage (principal); N39.0 Urinary tract infection, site not specified; G91.2 (Idiopathic) normal pressure hydrocephalus; E11.65 Type 2 diabetes mellitus with hyperglycemia; E05.90 Thyrotoxicosis, unspecified without thyrotoxic crisis or storm; I10 Essential (primary) hypertension; R00.0 Tachycardia, unspecified; R29.6 Repeated falls; D64.9 Anemia, unspecified; E88.09 Other disorders of plasma-protein metabolism, not elsewhere classified; K59.00 Constipation, unspecified; Z79.84 Long term (current) use of oral hypoglycemic drugs; Z86.73 Personal history of transient ischemic attack (TIA), and cerebral infarction without residual deficits; Z88.1 Allergy status to other antibiotic agents
CPT/HCPCS: 70450; 71010; 74176; 80048; 80053; 80307; 81001; 82948; 84443; 84484; 85025; 85610; 85730; 87086; 93005; 99285; J0696; J2405

== ENCOUNTER 2017-03-03 11:15 | Inpatient (IN) | payer OTHER, MEDICAID, MEDICARE ==
[~2017-03-03] VITALS: Ht 160 cm; Wt 37.0 kg
[2017-03-03] VITALS (8 sets, daily range): BP systolic 150–178; BP diastolic 64–78; PULSE 87–145; RESP 15–18; TEMP 97.7–100.1; O2SAT 98–100
[~2017-03-03 11:15] MED LIST changes: +Lactulose Liq PO; +METF500T PO; +METH5 PO; +METO25TA3 PO; +SENN187 PO
--- NOTE | 2017-03-03 12:25 | PD ---
HPI Chief Complaint: Abdominal Pain Time Seen by Provider: 11:45 Travel History International Travel<30 days: No Contact w/Intl Traveler<30days: No Traveled to known affect area: No History of Present Illness HPI 81 year old female presents to the emergency department via EMS for evaluation of increasing weakness, lethargy and decreased appetite. Patient has been admitted into our facility 4 times in last two months. She was recently treated for a urinary tract infection, ICH, and electrolyte abnormalities at our facility. She currently lives alone and is having a difficult time performing ADLs. Dr Reynoso discharge the patient from our facility 2 days ago with PT and home health care. The home health care nurse is to call 911 this morning to report that the patient has not been eating or ambulating in her home. Upon arrival to the emergency department the patient started vomiting. No hematemesis. PFSH Past Medical History Autoimmune Disease: No Blood Disorders: No Heart Rhythm Problems: No Cancer: No Cardiovascular Problems: No High Cholesterol: Yes Chemotherapy: No Chest Pain: Yes Congestive Heart Failure: No Cerebrovascular Accident: Yes Diabetes: Yes Patient Takes Glucophage: Yes Diminished Hearing: No Endocrine: No Gastrointestinal Disorders: No Genitourinary: No Headaches: Yes (MIGRAIN) Hypertension: Yes Immune Disorder: No Implanted Vascular Access Dvce: No Musculoskeletal: No Neurologic: Yes (FALLING MULTIPLE TIMES WITHIN THE PAST FEW WEEKS) Psychiatric: No Reproductive: No Respiratory: No Immunizations Current: Yes Migraines: Yes Radiation Therapy: No Seizures: Yes Thyroid Disease: No Ulcer: Yes ?: Not Menopausal: Yes : 1 Para: 1 Miscarriage: 0 : 0 Tubal Ligation: Yes Past Surgical History Abdominal Surgery: Yes (APPENDIX ) AICD: No Appendectomy: Yes (1955) Arteriovenous Shunt: No Cardiac Surgery: No Cholecystectomy: Yes (2002) Ear Surgery: No Eye Surgery: No Genitourinary Surgery: No Gynecologic Surgery: No Insulin Pump: No Joint Replacement: No Neurologic Surgery: No Oral Surgery: No Pacemaker: No Thoracic Surgery: No Other Surgery: Yes (APPENIX, ABD SURGERY) Social History Alcohol Use: No Tobacco Use: No Substance Use: No Allergies-Medications (Allergen,Severity, Reaction): Coded Allergies: ciprofloxacin (Verified Allergy, Severe, RASH, VOMITING, 02/14/17) Reported Meds & Prescriptions Reported Meds & Active Scripts Active Tapazole (Methimazole) 5 Mg Tab 5 Mg PO Q12HR Senna-Lax (Sennosides) 8.6 Mg Tab 17.2 Mg PO Q12H PRN [Lactulose Liq] 30 ML Syrp 30 Ml PO DAILY PRN Metoprolol Tartrate 25 Mg Tab 25 Mg PO Q12HR Metformin (Metformin HCl) 500 Mg Tab 500 Mg PO DAILY With a meal Walker/Adult/Folding (Device) 1 Mis Mis Ea .ROUTE DIRECTED PRN Norvasc (Amlodipine Besylate) 5 Mg Tab 5 Mg PO DAILY 30 Days Review of Systems Except as stated in HPI: all other systems reviewed are Neg Gastrointestinal: Positive: Vomiting Physical Exam Narrative GENERAL: Well-nourished, well-developed elderly frail 81-year-old female patient in no acute distress. Nontoxic appearing. SKIN: Focused skin assessment warm/dry. HEAD: Normocephalic. Atraumatic. EYES: No scleral icterus. No injection or drainage. NECK: Supple, trachea midline. No JVD or lymphadenopathy. CARDIOVASCULAR: Regular rate and rhythm without murmurs, gallops, or rubs. RESPIRATORY: Breath sounds equal bilaterally. No accessory muscle use. GASTROINTESTINAL: Abdomen soft, diffuse tenderness, nondistended. MUSCULOSKELETAL: No cyanosis, or edema. BACK: Nontender without obvious deformity. No CVA tenderness. Data Data Last Documented VS Vital Signs Date Time Temp Pulse Resp B/P (MAP) Pulse Ox O2 Delivery O2 Flow Rate FiO2 03/03/17 14:44 91 18 155/65 (95) 100 Room Air 03/03/17 11:34 98.3 Orders Orders Basic Metabolic Panel (Bmp) (03/03/17 11:54) Complete Blood Count With Diff (03/03/17 11:54) Urinalysis - C+S If Indicated (03/03/17 11:54) Chest, Single Ap (03/03/17 11:54) Ondansetron Inj (Zofran Inj) (03/03/17 13:01) Sodium Chlorid 0.9% 500 Ml Inj (Ns 500 M (03/03/17 13:15) Ondansetron Inj (Zofran Inj) (03/03/17 13:15) (Hub Use Only)Inp Phy Cons/Ref (03/03/17 ) Amlodipine (Norvasc) (03/04/17 09:00) Metformin (Glucophage) (03/04/17 09:00) Methimazole (Tapazole) (03/03/17 21:00) Metoprolol Tartrate (Lopressor) (03/03/17 21:00) Sennosides (Senokot) (03/03/17 15:00) Lactulose Liq (Lactulose Liq) (03/03/17 15:00) Admit Order (Ed Use Only) (03/03/17 14:52) Comprehensive Metabolic Panel (03/04/17 06:00) Free Thyroxine (T4) (03/04/17 06:00) Hemoglobin (Hgb) A1c (03/04/17 06:00) Magnesium (Mg) (03/04/17 06:00) Phosphorus (Po4) (03/04/17 06:00) Thyroid Stimulating Hormone (03/04/17 06:00) Complete Blood Count With Diff (03/04/17 06:00) Bedside Glucose MEJIA.CSUGAR (03/03/17 14:54) Blood Glucose Goal (Criteria) (03/03/17 14:54) Hypoglycemia 70 Mg/Dl Or < (03/03/17 14:54) Notify Dr: Other (03/03/17 14:54) Dextrose 50% In [place] (Vial) Inj (D50w (Vi (03/03/17 15:00) Glucagon Inj (Glucagon Inj) (03/03/17 15:00) Insulin Aspart Supplemtl Scale (Novolog (03/03/17 17:00) Labs Laboratory Tests Test 03/03/17 10:38 03/03/17 12:13 Urine Color YELLOW Urine Turbidity HAZY Urine pH 6.5 Urine Specific [place] 1.014 Urine Protein 30 mg/dL Urine Glucose (UA) NEG mg/dL Urine Ketones 40 mg/dL Urine Occult Blood NEG Urine Nitrite NEG Urine Bilirubin NEG Urine Urobilinogen LESS THAN 2.0 MG/DL Urine Leukocyte Esterase SMALL Urine RBC 1 /hpf Urine WBC 7 /hpf Urine Squamous Epithelial Cells 1 /hpf Urine Amorphous Sediment FEW Urine Bacteria OCC /hpf Urine Hyaline Casts 6 /lpf Urine Mucus FEW /lpf Microscopic Urinalysis Comment CULT NOT INDICATED White Blood Count 6.0 TH/MM3 Red Blood Count 3.16 MIL/MM3 Hemoglobin 10.3 GM/DL Hematocrit 29.7 % Mean Corpuscular Volume 93.9 FL Mean Corpuscular Hemoglobin 32.5 PG Mean Corpuscular Hemoglobin Concent 34.6 % Red Cell Distribution Width 14.2 % Platelet Count 246 TH/MM3 Mean Platelet Volume 8.4 FL Neutrophils (%) (Auto) 73.4 % Lymphocytes (%) (Auto) 14.3 % Monocytes (%) (Auto) 11.5 % Eosinophils (%) (Auto) 0.3 % Basophils (%) (Auto) 0.5 % Neutrophils # (Auto) 4.4 TH/MM3 Lymphocytes # (Auto) 0.9 TH/MM3 Monocytes # (Auto) 0.7 TH/MM3 Eosinophils # (Auto) 0.0 TH/MM3 Basophils # (Auto) 0.0 TH/MM3 CBC Comment DIFF FINAL Differential Comment Blood Urea Nitrogen 16 MG/DL Creatinine 0.25 MG/DL Random Glucose 104 MG/DL Calcium Level 9.3 MG/DL Sodium Level 144 MEQ/L Potassium Level 3.8 MEQ/L Chloride Level 107 MEQ/L Carbon Dioxide Level 25.7 MEQ/L Anion Gap 11 MEQ/L Estimat Glomerular Filtration Rate 264 ML/MIN MDM Medical Decision Making Medical Screen Exam Complete: Yes Emergency Medical Condition: Yes Medical Record Reviewed: Yes Differential Diagnosis Differential diagnoses include but not limited to electrolyte abnormalities, gastroenteritis, dehydration, arrhythmias Narrative Course Patient placed on monitor. Patient started vomiting. Small IV obtained in her wrist. Zofran and 500 mL normal saline IV bolus administered. CBC, BMP, UA ordered and pending. CT of the abdomen was considered due to the vomiting however due to the fact the patient has had an abdominal CT scan at our facility on 14 February and 25 February that showed no acute abnormalities. Patient has no peritoneal indications at this time and she is afebrile. CBC shows mild anemia with hemoglobin 10.3, when compared to the patient's previous medical record it is consistent with her baseline. BMP shows no acute abnormalities. UA has a similar profile to use a that was taken in January that grew E. Coli. Patient will be treated for UTI. Patient will be admitted for observation for AMS and UTI. Dr Toledo accepts admission. Diagnosis Primary Impression: Altered mental status Qualified Codes: R41.82 - Altered mental status, unspecified Additional Impression: UTI (urinary tract infection) Qualified Codes: N39.0 - Urinary tract infection, site not specified Admitting Information Admitting Physician Requests: Observation Antony,Camelia Alison PARTS COORDINATOR Mar 03, 2017 12:25
[2017-03-03 12:34] LABS: AUTOMATED NEUTROPHIL # 4.4 TH/MM3 (1.8-7.7); BASOPHIL % 0.5 % (0.0-2.0); EOSINOPHIL % 0.3 % (0.0-4.0); HEMATOCRIT 29.7 % (35.0-46.0); HEMOGLOBIN 10.3 GM/DL (11.6-15.3); LYMPH % 14.3 % (9.0-44.0); LYMPHOCYTE # 0.9 TH/MM3 (1.0-4.8); MEAN CELL VOLUME 93.9 FL (80.0-100.0); MEAN CORPUSCULAR HEMOGLOBIN 32.5 PG (27.0-34.0); MEAN CORPUSCULAR HGB CONC 34.6 % (32.0-36.0); MEAN PLATELET VOLUME 8.4 FL (7.0-11.0); MONO % 11.5 % (0.0-8.0); MONOCYTE # 0.7 TH/MM3 (0-0.9); NEUT % 73.4 % (16.0-70.0); PLATELET COUNT 246 TH/MM3 (150-450); RED BLOOD COUNT 3.16 MIL/MM3 (4.00-5.30); RED CELL DISTRIBUTION WIDTH 14.2 % (11.6-17.2)
[2017-03-03 12:55] LABS: BICARBONATE 25.7 MEQ/L (21.0-32.0); CALCIUM 9.3 MG/DL (8.5-10.1); CREATININE 0.25 MG/DL (0.50-1.00)
--- NOTE | 2017-03-03 12:57 | RADRPT ---
EXAM DATE/TIME: 03/03/2017 12:34 [facility] COMPARISON: CHEST SINGLE AP, February 25, 2017, 18:12. INDICATIONS : Short of breath, headache, weakness MEDICAL HISTORY : Hypertension. Diabetes mellitus type II. SURGICAL HISTORY : Cholecystectomy. Appendectomy. ENCOUNTER: Initial ACUITY: 4 - 6 days PAIN SCORE: Non-responsive. LOCATION: Bilateral chest FINDINGS: A single view of the chest demonstrates the lungs to be symmetrically aerated without evidence of mas s, infiltrate or effusion. The cardiomediastinal contours are unremarkable. Osseous structures are intact. CONCLUSION: The lungs are clear. Migel Campos MD on March 03, 2017 at 12:55 Board Certified Radiologist. This report was verified electronically.
[2017-03-03] MEDS ORDERED: ONDANSETRON HCL 4 MG/2 ML VIAL ONE (13:01)
[2017-03-03 13:02] LABS: AMORPHOUS SEDIMENT, URINE FEW; BACTERIA, URINE OCC /hpf; BILIRUBIN, URINE NEG (NEG); BLOOD, URINE NEG (NEG); GLUCOSE,URINE NEG (NEG); HYALINE CAST, URINE 6 /lpf (RARE); KETONE, URINE 40 mg/dL (NEG); MUCUS URINE FEW /lpf (OCC); NITRITE,URINE NEG (NEG); PH, URINE 6.5 (5.0-8.5); SQUAMOUS EPITHELIAL CELL URINE 1 /hpf (0-5); URINE COLOR YELLOW (YELLW/STRAW); URINE LEUKOCYTE ESTERASE SMALL (NEG)
[2017-03-03] MEDS ORDERED: SODIUM CHLORID 0.9% 500 ML INJ 500 ML IV ONE (13:15)
[2017-03-03] MEDS ORDERED: ONDANSETRON HCL 4 MG/2 ML VIAL IV PUSH ONE (13:15)
--- NOTE | 2017-03-03 14:50 | PD ---
Data Data Last Documented VS Vital Signs Date Time Temp Pulse Resp B/P (MAP) Pulse Ox O2 Delivery O2 Flow Rate FiO2 03/03/17 14:44 91 18 155/65 (95) 100 Room Air 03/03/17 11:34 98.3 Orders Orders Basic Metabolic Panel (Bmp) (03/03/17 11:54) Complete Blood Count With Diff (03/03/17 11:54) Urinalysis - C+S If Indicated (03/03/17 11:54) Chest, Single Ap (03/03/17 11:54) Ondansetron Inj (Zofran Inj) (03/03/17 13:01) Sodium Chlorid 0.9% 500 Ml Inj (Ns 500 M (03/03/17 13:15) Ondansetron Inj (Zofran Inj) (03/03/17 13:15) (Hub Use Only)Inp Phy Cons/Ref (03/03/17 ) Amlodipine (Norvasc) (03/04/17 09:00) Metformin (Glucophage) (03/04/17 09:00) Methimazole (Tapazole) (03/03/17 21:00) Metoprolol Tartrate (Lopressor) (03/03/17 21:00) Sennosides (Senokot) (03/03/17 15:00) Lactulose Liq (Lactulose Liq) (03/03/17 15:00) Admit Order (Ed Use Only) (03/03/17 14:52) Comprehensive Metabolic Panel (03/04/17 06:00) Free Thyroxine (T4) (03/04/17 06:00) Hemoglobin (Hgb) A1c (03/04/17 06:00) Magnesium (Mg) (03/04/17 06:00) Phosphorus (Po4) (03/04/17 06:00) Thyroid Stimulating Hormone (03/04/17 06:00) Complete Blood Count With Diff (03/04/17 06:00) Bedside Glucose MEJIA.CSUGAR (03/03/17 14:54) Blood Glucose Goal (Criteria) (03/03/17 14:54) Hypoglycemia 70 Mg/Dl Or < (03/03/17 14:54) Notify Dr: Other (03/03/17 14:54) Dextrose 50% In [place] (Vial) Inj (D50w (Vi (03/03/17 15:00) Glucagon Inj (Glucagon Inj) (03/03/17 15:00) Insulin Aspart Supplemtl Scale (Novolog (03/03/17 17:00) Labs Laboratory Tests Test 03/03/17 10:38 03/03/17 12:13 Urine Color YELLOW Urine Turbidity HAZY Urine pH 6.5 Urine Specific [place] 1.014 Urine Protein 30 mg/dL Urine Glucose (UA) NEG mg/dL Urine Ketones 40 mg/dL Urine Occult Blood NEG Urine Nitrite NEG Urine Bilirubin NEG Urine Urobilinogen LESS THAN 2.0 MG/DL Urine Leukocyte Esterase SMALL Urine RBC 1 /hpf Urine WBC 7 /hpf Urine Squamous Epithelial Cells 1 /hpf Urine Amorphous Sediment FEW Urine Bacteria OCC /hpf Urine Hyaline Casts 6 /lpf Urine Mucus FEW /lpf Microscopic Urinalysis Comment CULT NOT INDICATED White Blood Count 6.0 TH/MM3 Red Blood Count 3.16 MIL/MM3 Hemoglobin 10.3 GM/DL Hematocrit 29.7 % Mean Corpuscular Volume 93.9 FL Mean Corpuscular Hemoglobin 32.5 PG Mean Corpuscular Hemoglobin Concent 34.6 % Red Cell Distribution Width 14.2 % Platelet Count 246 TH/MM3 Mean Platelet Volume 8.4 FL Neutrophils (%) (Auto) 73.4 % Lymphocytes (%) (Auto) 14.3 % Monocytes (%) (Auto) 11.5 % Eosinophils (%) (Auto) 0.3 % Basophils (%) (Auto) 0.5 % Neutrophils # (Auto) 4.4 TH/MM3 Lymphocytes # (Auto) 0.9 TH/MM3 Monocytes # (Auto) 0.7 TH/MM3 Eosinophils # (Auto) 0.0 TH/MM3 Basophils # (Auto) 0.0 TH/MM3 CBC Comment DIFF FINAL Differential Comment Blood Urea Nitrogen 16 MG/DL Creatinine 0.25 MG/DL Random Glucose 104 MG/DL Calcium Level 9.3 MG/DL Sodium Level 144 MEQ/L Potassium Level 3.8 MEQ/L Chloride Level 107 MEQ/L Carbon Dioxide Level 25.7 MEQ/L Anion Gap 11 MEQ/L Estimat Glomerular Filtration Rate 264 ML/MIN [facility] Medical Record Reviewed: Yes Supervised Visit with LADAN: Yes Narrative Course I, Dr. Blank, have reviewed the advance practice practitioner's documentation and am in agreement, met with the patient face to face, made the diagnosis, and the medical decision making was done by me. *My assessment and Findings: Pt seen and evaluated by me. Tachycardia, UTI, vomiting w admission planned for IV abx, IVF and antiemetics. Arvin Blank MD Mar 03, 2017 14:50
[2017-03-03] MEDS ORDERED: SENNOSIDES 8.6 MG TAB PO PRN ×2 (15:00)
[2017-03-03] MEDS ORDERED: ONDANSETRON HCL 4 MG/2 ML VIAL IVP PRN (15:00)
[2017-03-03] MEDS ORDERED: oxyCODONE/ACETAMINOPHEN 5 MG/325 MG TAB PO PRN (15:00)
[2017-03-03] MEDS ORDERED: BISACODYL 10 MG SUPP RECTAL PRN (15:00)
[2017-03-03] MEDS ORDERED: METOCLOPRAMIDE HCL 10 MG/2 ML VIAL IV PUSH PRN (15:00)
[2017-03-03] MEDS ORDERED: GLUCAGON 1 MG/ML VIAL OTHER PRN (15:00)
[2017-03-03] MEDS ORDERED: LACTULOSE SYRUP 20 GM/30 ML CUP PO PRN ×2 (15:00)
[2017-03-03] MEDS ORDERED: ACETAMINOPHEN 325 MG TAB PO PRN ×2 (15:00)
[2017-03-03] MEDS ORDERED: MAGNESIUM HYDROXIDE SUSP 30 ML CUP PO PRN (15:00)
[2017-03-03] MEDS ORDERED: DEXTROSE 50% IN WATER 50 ML VIAL(D50) IV PUSH PRN (15:00)
[2017-03-03] MEDS ORDERED: SODIUM CHLORIDE 0.9% FLUSH 10 ML FLUSH IV FLUSH PRN (15:00)
[2017-03-03] MEDS ORDERED: NALOXONE HCL 0.4 MG/ML AMP IV PUSH PRN (15:00)
[2017-03-03] MEDS ORDERED: MORPHINE SULFATE 2 MG/ML INJ IV PUSH PRN ×2 (15:00)
--- NOTE | 2017-03-03 16:32 | HHI.HP ---
[facility] No Primary Care Physician Admission Diagnosis AMS, UTI, Nausea/vomiting Diagnoses: Chief Complaint: Abdominal pain Travel History International Travel<30 Days: No Contact w/Intl Traveler <30 Da: No Traveled to Known Affected Are: No History of Present Illness The patient is in 81 year old female who presents to the emergency department via EMS for evaluation of increasing weakness, lethargy and decreased appetite. Patient has been admitted into our facility 4 times in last two months. She was recently treated for a urinary tract infection, ICH, and electrolyte abnormalities at our facility. She currently lives alone and is having a difficult time performing ADLs. Dr Reynoso discharge the patient from our facility 2 days ago with PT and home health care. The home health care nurse called 911 this morning to report that the patient has not been eating or ambulating in her home. Upon arrival to the emergency department the patient started vomiting. No hematemesis. Had recommended that patient go to SNF previously but she declined now that she gave that a try and failed she needs to go to SNF await clearance by [employer] Review of Systems Constitutional: COMPLAINS OF: Fatigue, Weight loss, DENIES: Diaphoretic episodes, Fever, Weight gain, Chills, Dizziness, Change in appetite, Night Sweats Endocrine: DENIES: Abnorml menstrual pattern, Heat/cold intolerance, Polydipsia , Polyuria, Polyphagia Eyes: DENIES: Blurred vision, Diplopia, Eye inflammation, Eye pain, Vision loss , Photosensitivity Ears, nose, mouth, throat: DENIES: Tinnitus, Hearing loss, Vertigo, Nasal discharge, Oral lesions, Throat pain, Hoarseness, Ear Pain, Running Nose Respiratory: DENIES: Apneas, Cough, Snoring, Wheezing, Hemoptysis, Sputum production, Shortness of breath Cardiovascular: DENIES: Chest pain, Palpitations, Syncope, Dyspnea on Exertion , PND, Lower Extremity Edema Gastrointestinal: COMPLAINS OF: Nausea, Vomiting, DENIES: Abdominal pain, Black stools, Bloody stools, Constipation, Diarrhea Genitourinary: DENIES: Abnormal vaginal bleeding, Dysmenorrhea, Dyspareunia Musculoskeletal: DENIES: Joint pain, Muscle aches, Stiffness, Joint Swelling, Back pain, Neck pain Integumentary: DENIES: Abnormal pigmentation, Pruritus, Rash, Nail changes, Breast masses Hematologic/lymphatic: DENIES: Bruising, Lymphadenopathy Immunologic/allergic: DENIES: Eczema, Urticaria Neurologic: COMPLAINS OF: Abnormal gait, Poor Balance, DENIES: Headache, Localized weakness, Paresthesias, Seizures, Speech Problems, Tremor Psychiatric: COMPLAINS OF: Anxiety, Confusion, Depression, DENIES: Mood changes , Hallucinations, Agitation, Suicidal Ideation, Homicidal Ideation Except as stated in HPI: all other systems reviewed are Neg Past Family Social History Past Medical History (Obtained from medical records review) Subdural hematoma History of SVT H. pylori gastritis/peptic ulcer Hypertension Past Surgical History Appendectomy Cholecystectomy Breast reduction Past Surgical History Appendectomy Cholecystectomy Breast reduction Reported Medications Reported Meds & Active Scripts Active Tapazole (Methimazole) 5 Mg Tab 5 Mg PO Q12HR Senna-Lax (Sennosides) 8.6 Mg Tab 17.2 Mg PO Q12H PRN [Lactulose Liq] 30 ML Syrp 30 Ml PO DAILY PRN Metoprolol Tartrate 25 Mg Tab 25 Mg PO Q12HR Metformin (Metformin HCl) 500 Mg Tab 500 Mg PO DAILY With a meal Walker/Adult/Folding (Device) 1 Mis Mis Ea .ROUTE DIRECTED PRN Norvasc (Amlodipine Besylate) 5 Mg Tab 5 Mg PO DAILY 30 Days Allergies: Coded Allergies: ciprofloxacin (Verified Allergy, Severe, RASH, VOMITING, 02/14/17) Active Ordered Medications Current Medications Ondansetron HCl (Zofran Inj) 4 mg STK-MED ONCE .ROUTE ; Start 03/03/17 at 13:01 ; Stop 03/03/17 at 13:02; Status DC Sodium Chloride 500 ml @ 500 mls/hr BOLUS ONCE IV Last administered on 13:13; Start 03/03/17 at 13:15; Stop 03/03/17 at 14:14; Status DC Ondansetron HCl (Zofran Inj) 4 mg ONCE ONCE IV PUSH Last administered on 03/03 13:13; Start 03/03/17 at 13:15; Stop 03/03/17 at 13:16; Status DC Amlodipine Besylate (Norvasc) 5 mg DAILY PO ; Start 03/04/17 at 09:00 Metformin HCl (Glucophage) 500 mg DAILY PO ; Start 03/04/17 at 09:00 Methimazole (Tapazole) 5 mg Q12HR PO ; Start 03/03/17 at 21:00 Metoprolol Tartrate (Lopressor) 25 mg Q12HR PO ; Start 03/03/17 at 21:00 Sennosides (Senokot) 17.2 mg Q12HR PRN PO Moderate constipation; Start at 15:00; Stop 03/03/17 at 15:12; Status DC Lactulose (Lactulose Liq) 30 ml DAILY PRN PO SEVERE CONSITIPATION; Start 03/03 at 15:00; Stop 03/03/17 at 15:12; Status DC Dextrose (D50w (Vial) Inj) 50 ml UNSCH PRN IV PUSH HYPOGLYCEMIA-SEE COMMENTS; Start 03/03/17 at 15:00 Glucagon (Glucagon Inj) 1 mg UNSCH PRN OTHER HYPOGLYCEMIA-SEE COMMENTS; Start 03/03/17 at 15:00 Insulin Aspart (NovoLOG SUPPLEMENTAL SCALE) 1 ACHS SLIDING SCALE SQ ; Start at 17:00 Sodium Chloride 1,000 ml @ 100 mls/hr Q10H IV ; Start 03/03/17 at 14:55 Sodium Chloride (NS Flush) 2 ml UNSCH PRN IV FLUSH FLUSH AFTER USING IV ACCESS ; Start 03/03/17 at 15:00 Sodium Chloride (NS Flush) 2 ml BID IV FLUSH ; Start 03/03/17 at 21:00 Acetaminophen (Tylenol) 650 mg Q4H PRN PO TEMP > 100.4; Start 03/03/17 at 15: 00 Ondansetron HCl (Zofran Inj) 4 mg Q6H PRN IVP NAUSEA OR VOMITING; Start at 15:00 Metoclopramide HCl (Reglan Inj) 5 mg Q6H PRN IV PUSH NAUSEA OR VOMITING; Start 03/03/17 at 15:00 Heparin Sodium (Porcine) (Heparin Inj) 5,000 units Q12H SQ ; Start 03/03/17 at 15:00 Acetaminophen (Tylenol) 650 mg Q6H PRN PO PAIN SCALE 1 TO 2; Start 03/03/17 at 15:00 Oxycodone/ Acetaminophen (Percocet 5-325 Mg) 1 tab Q6H PRN PO PAIN SCALE 3 TO 5; Start 03/03/17 at 15:00 Oxycodone/ Acetaminophen (Percocet 10-325 Mg) 1 tab Q6H PRN PO PAIN SCALE 6 TO 10; Start 03/03/17 at 15:00 Morphine Sulfate (Morphine Inj) 2 mg Q3H PRN IV PUSH Pain 3-5; if unable to take PO; Start 03/03/17 at 15:00 Morphine Sulfate (Morphine Inj) 4 mg Q3H PRN IV PUSH Pain 6-10;if unable to take PO; Start 03/03/17 at 15:00 Naloxone HCl (Narcan Inj) 0.4 mg UNSCH PRN IV PUSH SEE LABEL COMMENTS; Start 03/03/17 at 15:00 Senna/Docusate Sodium (Lara-Colace) 1 tab BID PO ; Start 03/03/17 at 21:00 Magnesium Hydroxide (Milk Of Magnesia Liq) 30 ml Q12H PRN PO Mild constipation ; Start 03/03/17 at 15:00 Sennosides (Senokot) 17.2 mg Q12H PRN PO Moderate constipation; Start at 15:00 Bisacodyl (Dulcolax Supp) 10 mg DAILY PRN RECTAL SEVERE CONSITIPATION; Start 03/03/17 at 15:00 Lactulose (Lactulose Liq) 30 ml DAILY PRN PO SEVERE CONSITIPATION; Start 03/03 at 15:00 Ceftriaxone Sodium 1000 mg/ Sodium Chloride 100 ml @ 200 mls/hr Q24H IV ; Start 03/03/17 at 16:00 Nitrofurantoin Macrocrystals (Macrobid) 100 mg BIDPC PO ; Start 03/03/17 at 15: 00 Family History No coronary artery disease or diabetes that she knows of Social History Lives alone Denies any tobacco alcohol or illicit Is unable to take care of herself at home Physical Exam Vital Signs Vital Signs Date Time Temp Pulse Resp B/P (MAP) Pulse Ox O2 Delivery O2 Flow Rate FiO2 03/03/17 14:44 91 18 155/65 (95) 100 Room Air 03/03/17 13:00 145 18 165/78 (107) 100 Room Air 03/03/17 12:06 18 03/03/17 11:34 98.3 87 18 178/70 (106) 99 Room Air Physical Exam GENERAL: This is a cachectic patient who appears older than stated age, in no apparent distress. Awake alert oriented and cooperative SKIN: No rashes, ecchymoses or lesions. Cool and dry. HEAD: Atraumatic. Normocephalic. No temporal or scalp tenderness. EYES: Pupils equal round and reactive. Extraocular motions intact. No scleral icterus. No injection or drainage. ENT: Nose without bleeding, purulent drainage or septal hematoma. Throat without erythema, tonsillar hypertrophy or exudate. Uvula midline. Airway patent. NECK: Trachea midline. No JVD or lymphadenopathy. Supple, nontender, no meningeal signs. CARDIOVASCULAR: Regular rate and rhythm without murmurs, gallops, or rubs. S1 and S2 no S3 or S4 RESPIRATORY: Clear to auscultation. Breath sounds equal bilaterally. No wheezes , rales, or rhonchi. GASTROINTESTINAL: Abdomen soft, non-tender, nondistended. No hepato-splenomegaly , or palpable masses. No guarding. MUSCULOSKELETAL: Extremities without clubbing, cyanosis, or edema. No joint tenderness, effusion, or edema noted. No calf tenderness. Negative Homans sign bilaterally. NEUROLOGICAL: Awake and alert. Cranial nerves II through XII intact. Motor and sensory grossly within normal limits. 4 out of 5 muscle strength in all muscle groups. Normal speech. Insight and judgment are limited mood and behavior somewhat appropriate Laboratory Laboratory Tests Test 03/03/17 10:38 03/03/17 12:13 Urine Color YELLOW Urine Turbidity HAZY Urine pH 6.5 Urine Specific [place] 1.014 Urine Protein 30 Urine Glucose (UA) NEG Urine Ketones 40 Urine Occult Blood NEG Urine Nitrite NEG Urine Bilirubin NEG Urine Urobilinogen LESS THAN 2.0 Urine Leukocyte Esterase SMALL Urine RBC 1 Urine WBC 7 Urine Squamous Epithelial Cells 1 Urine Amorphous Sediment FEW Urine Bacteria OCC Urine Hyaline Casts 6 Urine Mucus FEW Microscopic Urinalysis Comment CULT NOT INDICATED White Blood Count 6.0 Red Blood Count 3.16 Hemoglobin 10.3 Hematocrit 29.7 Mean Corpuscular Volume 93.9 Mean Corpuscular Hemoglobin 32.5 Mean Corpuscular Hemoglobin Concent 34.6 Red Cell Distribution Width 14.2 Platelet Count 246 Mean Platelet Volume 8.4 Neutrophils (%) (Auto) 73.4 Lymphocytes (%) (Auto) 14.3 Monocytes (%) (Auto) 11.5 Eosinophils (%) (Auto) 0.3 Basophils (%) (Auto) 0.5 Neutrophils # (Auto) 4.4 Lymphocytes # (Auto) 0.9 Monocytes # (Auto) 0.7 Eosinophils # (Auto) 0.0 Basophils # (Auto) 0.0 CBC Comment DIFF FINAL Differential Comment Blood Urea Nitrogen 16 Creatinine 0.25 Random Glucose 104 Calcium Level 9.3 Sodium Level 144 Potassium Level 3.8 Chloride Level 107 Carbon Dioxide Level 25.7 Anion Gap 11 Estimat Glomerular Filtration Rate 264 Result Diagram: 03/03/17 1213 03/03/17 1213 Imaging Last Impressions Chest X-Ray 03/03/17 1154 Signed Impressions: Service Date/Time: Friday, March 03, 2017 12:34 - CONCLUSION: The lungs are clear. MD Renaldo Alexis VTE Risk Assessment Renaldo VTE Risk Assessment: Mod/High Risk (score >= 2) Caprini Risk Assessment Model Point Value = 1 Point Value = 2 Point Value = 3 Point Value = 5 Age 41-60 Minor surgery BMI > 25 kg/m2 Swollen legs Varicose veins or History of unexplained or recurrent spontaneous Oral contraceptives or hormone replacement Sepsis (< 1 month) Serious lung disease, including pneumonia (< 1 month) Abnormal pulmonary function Acute myocardial infarction Congestive heart failure (< 1 month) History of inflammatory bowel disease Medical patient at bed rest Age 61-74 Arthroscopic surgery Major open surgery (> 45 min) Laparoscopic surgery (> 45 min) Malignancy Confined to bed (> 72 hours) Immobilizing plaster cast Central venous access Age >= 75 History of VTE Family history of VTE Factor V Leiden Prothrombin [id number] Lupus anticoagulant Anticardiolipin antibodies Elevated serum homocysteine Heparin-induced thrombocytopenia Other congenital or acquired thrombophilia Stroke (< 1 month) Elective arthroplasty Hip, pelvis, or leg fracture Acute spinal cord injury (< 1 month) Prophylaxis Regimen Total Risk Factor Score Risk Level Prophylaxis Regimen 0-1 Low Early ambulation 2 Moderate Order ONE of the following: *Sequential Compression Device (SCD) *Heparin 5000 units SQ BID 3-4 Higher Order ONE of the following medications: *Heparin 5000 units SQ TID *Enoxaparin/Lovenox 40 mg SQ daily (WT < 150 kg, CrCl > 30 mL/min) *Enoxaparin/Lovenox 30 mg SQ daily (WT < 150 kg, CrCl > 10-29 mL/min) *Enoxaparin/Lovenox 30 mg SQ BID (WT < 150 kg, CrCl > 30 mL/min) AND/OR *Sequential Compression Device (SCD) 5 or more Highest Order ONE of the following medications: *Heparin 5000 units SQ TID (Preferred with Epidurals) *Enoxaparin/Lovenox 40 mg SQ daily (WT < 150 kg, CrCl > 30 mL/min) *Enoxaparin/Lovenox 30 mg SQ daily (WT < 150 kg, CrCl > 10-29 mL/min) *Enoxaparin/Lovenox 30 mg SQ BID (WT < 150 kg, CrCl > 30 mL/min) AND *Sequential Compression Device (SCD) Assessment and Plan Assessment and Plan 1. Subdural hematoma Stable from previous admissions denies any new headaches or recent falls Neurosurgery consulted and recommended f/u with in the clinic; no interventions needed at this time. 2. Probable UTI- with mixed patti-last admission will continue on Rocephin and Macrobid 3. Altered mental status- seems to be improving; some confusion at baseline. May be secondary to UTI will continue on Rocephin and Macrobid 4. Abdominal pain-probably secondary to urinary tract infection continue on Rocephin and Macrobid 5. HTN Medications adjusted and start metoprolol. 6. hyperthyroidism will start methimazole 7. tachycardia/hand tremors- likely due hyperthyroidism start on Methimazole and metoprolol. Diabetes Accu-Cheks before meals and at bedtime with sliding scale coverage FEN Heart healthy diet Electrolytes: Monitor and replete when necessary Holding pharmacologic anticoagulation secondary to subdural hematoma PT and OT consulted. Await case management for SNF placement Code Status Full code Discussed Condition With ER and RN and patient Jose Reynoso DO Mar 03, 2017 16:32
[2017-03-03] MEDS: cefTRIAXone INJ 1,000 MG in SODIUM CHLORIDE 0.9% INJ 100 ML IV SCH (16:53)
[2017-03-03] MEDS: NITROFURANTOIN MONOHYD MACROCR 100 MG CAP PO SCH ×2 (16:53→18:00)
[2017-03-03] MEDS: HEPARIN SODIUM - SQ 10,000 UNITS/ML VIAL SQ SCH (16:53)
[2017-03-03] MEDS: SODIUM CHLOR 0.9% 1000 ML INJ 1,000 ML IV SCH ×2 (16:54→21:14)
[2017-03-03] MEDS: INSULIN ASPART SUPPLEMENTAL SCALE SQ SCH ×2 (17:00→21:00)
[2017-03-03 17:17] LABS: TROPONIN I 0.02 NG/ML (0.02-0.05)
[2017-03-03] MEDS ORDERED: METHIMAZOLE 5 MG TAB PO SCH (21:00)
[2017-03-03] MEDS: METOPROLOL TARTRATE 25 MG TAB PO SCH (21:10)
[2017-03-03] MEDS: SODIUM CHLORIDE 0.9% FLUSH 10 ML FLUSH IV FLUSH SCH (21:10)
[2017-03-03] MEDS: DOCUSATE SODIUM 50 MG/SENNA 8.6 MG TAB PO SCH (21:10)
[2017-03-03 23:25] LABS: TROPONIN I 0.02 NG/ML (0.02-0.05)
[2017-03-04] MEDS: HEPARIN SODIUM - SQ 10,000 UNITS/ML VIAL SQ SCH ×2 (01:33→16:05)
[2017-03-04 05:42] VITALS: BP 153/98; PULSE 119; RESP 18; TEMP 98.7; O2SAT 96
[2017-03-04] MEDS: INSULIN ASPART SUPPLEMENTAL SCALE SQ SCH ×4 (08:00→21:00)
[2017-03-04 08:20] LABS: AUTOMATED NEUTROPHIL # 16.1 TH/MM3 (1.8-7.7); BASOPHIL % 0.2 % (0.0-2.0); EOSINOPHIL % 0.1 % (0.0-4.0); HEMATOCRIT 30.2 % (35.0-46.0); HEMOGLOBIN 9.9 GM/DL (11.6-15.3); LYMPH % 4.1 % (9.0-44.0); LYMPHOCYTE # 0.7 TH/MM3 (1.0-4.8); MEAN CELL VOLUME 94.9 FL (80.0-100.0); MEAN CORPUSCULAR HGB CONC 32.7 % (32.0-36.0); MEAN PLATELET VOLUME 9.1 FL (7.0-11.0); MONO % 4.4 % (0.0-8.0); MONOCYTE # 0.8 TH/MM3 (0-0.9); NEUT % 91.2 % (16.0-70.0); PLATELET COUNT 249 TH/MM3 (150-450); RED BLOOD COUNT 3.18 MIL/MM3 (4.00-5.30); RED CELL DISTRIBUTION WIDTH 14.4 % (11.6-17.2); WHITE BLOOD COUNT 17.6 TH/MM3 (4.0-11.0)
[2017-03-04 08:24] LABS: ALBUMIN 2.2 GM/DL (3.4-5.0); ALKALINE PHOSPHATASE 68 U/L (45-117); ALT (GPT) 14 U/L (10-53); AST (GOT) 28 U/L (15-37); BICARBONATE 23.7 MEQ/L (21.0-32.0); BLOOD UREA NITROGEN 10 MG/DL (7-18); CALCIUM 8.3 MG/DL (8.5-10.1); CHLORIDE 111 MEQ/L (98-107); FREE T4 7.75 NG/DL (0.76-1.46); GLOMERULAR FILTRATION RATE 214 ML/MIN (>89); GLUCOSE,RANDOM 126 MG/DL (74-106); MAGNESIUM 1.3 MG/DL (1.5-2.5); PHOSPHORUS 2.6 MG/DL (2.5-4.9); SODIUM (NA) 145 MEQ/L (136-145); TOTAL BILIRUBIN ADULT 0.4 MG/DL (0.2-1.0); TOTAL PROTEIN 7.3 GM/DL (6.4-8.2)
[2017-03-04 08:42] VITALS: BP 186/75; PULSE 113; RESP 22; TEMP 98.6; O2SAT 100
[2017-03-04] MEDS ORDERED: metFORMIN HCL 500 MG TAB PO SCH (09:00)
--- NOTE | 2017-03-04 11:24 | HHI.PR ---
Subjective Remarks Follow up for UTI, weakness, lethargy, decreased appetite. The patient reports one episode of vomiting this morning, described as yellow bilious emesis. She reports continued epigastric abdominal pain. Denies any diarrhea, last BM yesterday described as formed, no melena or hematochezia. Tmax 100.1 overnight and RN reports persistent tachycardia around 110s, up to 150 with any minimal exertion. She denies any chest pain or shortness of breath. She states she just feels weak. She agrees she likely needs to go to SNF. Objective Vitals Vital Signs Date Time Temp Pulse Resp B/P (MAP) Pulse Ox O2 Delivery O2 Flow Rate FiO2 03/04/17 08:42 98.6 113 22 186/75 (112) 100 03/04/17 05:42 98.7 119 18 153/98 (116) 96 03/04/17 02:26 20 03/03/17 23:45 100.1 105 18 150/64 (92) 100 03/03/17 21:12 98 03/03/17 19:46 97.7 90 15 163/67 (99) 100 03/03/17 17:38 93 03/03/17 16:24 98.1 103 16 166/65 (98) 99 03/03/17 14:44 91 18 155/65 (95) 100 Room Air 03/03/17 13:00 145 18 165/78 (107) 100 Room Air 03/03/17 12:06 18 03/03/17 11:34 98.3 87 18 178/70 (106) 99 Room Air I/O 03/03/17 03/03/17 03/03/17 03/04/17 03/04/17 03/04/17 07:00 15:00 23:00 07:00 15:00 23:00 Intake Total 100 ml Output Total 150 ml Balance 100 ml -150 ml IV Total 100 ml Output Urine Total 150 ml Result Diagram: 03/04/17 0720 03/04/17 0712 Imaging Last Impressions Chest X-Ray 03/03/17 1154 Signed Impressions: Service Date/Time: Friday, March 03, 2017 12:34 - CONCLUSION: The lungs are clear. Migel Campos MD Objective Remarks GENERAL: Frail elderly female patient in NAD. SKIN: Warm and dry. No rash. HEENT: Normocephalic. Atraumatic. Pupils equal and round. Mucous membranes pink and moist. NECK: Supple. Trachea midline. CARDIOVASCULAR: Tachycardic, regular rhythm. S1, S2 noted. No murmur appreciated. RESPIRATORY: No accessory muscle use. Clear to auscultation. Breath sounds equal bilaterally. GASTROINTESTINAL: Abdomen soft, nondistended, mild epigastric TTP. Normoactive bowel sounds x4. MUSCULOSKELETAL: No obvious deformities. Extremities without clubbing, cyanosis , or edema. NEUROLOGICAL: Awake and alert. No obvious cranial nerve deficits. Motor grossly within normal limits. Moves all extremities spontaneously. Normal speech. PSYCHIATRIC: Appropriate mood and affect; insight and judgment normal. Medications and IVs Current Medications Medications (Trade) Dose Ordered Sig/Jordan Route Start Time Stop Time Status Last Admin (Norvasc) 5 mg DAILY PO 03/04/17 09:00 (Glucophage) 500 mg DAILY PO 03/04/17 09:00 Future Hold (Tapazole) 5 mg Q12HR PO 03/03/17 21:00 03/03/17 21:10 (Lopressor) 25 mg Q12HR PO 03/03/17 21:00 03/03/17 21:10 (D50w (Vial) Inj) 50 ml UNSCH PRN IV PUSH 03/03/17 15:00 (Glucagon Inj) 1 mg UNSCH PRN OTHER 03/03/17 15:00 (NovoLOG SUPPLEMENTAL SCALE) 1 ACHS SLIDING SCALE SQ 03/03/17 17:00 Sodium Chloride 1,000 ml @ 100 mls/hr Q10H IV 03/03/17 14:55 03/03/17 21:14 (NS Flush) 2 ml UNSCH PRN IV FLUSH 03/03/17 15:00 (NS Flush) 2 ml BID IV FLUSH 03/03/17 21:00 03/03/17 21:10 (Tylenol) 650 mg Q4H PRN PO 03/03/17 15:00 (Zofran Inj) 4 mg Q6H PRN IVP 03/03/17 15:00 03/04/17 01:32 (Reglan Inj) 5 mg Q6H PRN IV PUSH 03/03/17 15:00 (Heparin Inj) 5,000 units Q12H SQ 03/03/17 15:00 03/04/17 01:33 (Tylenol) 650 mg Q6H PRN PO 03/03/17 15:00 (Percocet 5-325 Mg) 1 tab Q6H PRN PO 03/03/17 15:00 (Percocet 10-325 Mg) 1 tab Q6H PRN PO 03/03/17 15:00 (Morphine Inj) 2 mg Q3H PRN IV PUSH 03/03/17 15:00 03/04/17 02:21 (Morphine Inj) 4 mg Q3H PRN IV PUSH 03/03/17 15:00 (Narcan Inj) 0.4 mg UNSCH PRN IV PUSH 03/03/17 15:00 (Lara-Colace) 1 tab BID PO 03/03/17 21:00 03/03/17 21:10 (Milk Of Magnesia Liq) 30 ml Q12H PRN PO 03/03/17 15:00 (Senokot) 17.2 mg Q12H PRN PO 03/03/17 15:00 (Dulcolax Supp) 10 mg DAILY PRN RECTAL 03/03/17 15:00 (Lactulose Liq) 30 ml DAILY PRN PO 03/03/17 15:00 Ceftriaxone Sodium 1000 mg/ Sodium Chloride 100 ml @ 200 mls/hr Q24H IV 03/03/17 16:00 03/03/17 16:53 (Macrobid) 100 mg BIDPC PO 03/03/17 15:00 03/03/17 16:53 Magnesium Sulfate/ Dextrose 100 ml @ 100 mls/hr Q1H IV 03/04/17 09:00 03/04/17 10:59 Potassium Chloride 100 ml @ 50 mls/hr Q2H IV 03/04/17 11:00 03/04/17 14:59 A/P Assessment and Plan 81-year-old female with history of SVT, recent subdural hematoma, H. pylori gastritis, peptic ulcer, hypertension, diabetes mellitus, presents with increasing weakness, lethargy, decreased appetite, and inability to care for self. Patient has been admitted 4x in the last 2 months, discharged with [facility], however [facility] RN called 911 on 03/03 secondary to patient not eating or ambulating in her home. Generalized Weakness, Difficulty with ADLs, Failed Outpatient: patient has failed multiple outpatient trials with [facility], unable to care for self. -Consult PT -Likely needs SNF placement, Case management consulted to assist with discharge planning Sepsis with UTI: patient meets sepsis criteria with leukocytosis WBC 17.6K, tachycardia HR 119 and suspected source-UTI. Tmax 100.1. CXR images reviewed, unremarkable. -check lactic acid -check blood cultures -Continue on IV Rocephin and po Macrobid for UTI -Monitor CBC Nausea/Vomiting/Abdominal Pain: with hx of peptic ulcer and H. pylori gastritis. -patient with episode of vomiting while in hospital -check abdominal U/S -start on IV Pepcid bid -supportive treatment with IVF with D5 1/2 NS w/KCl, antiemetics prn, pain control prn Hypokalemia/Hypomagnesemia: K 2.8, Mag 1.3; suspect secondary to recent poor oral intake and vomiting. -give IV Mag Sulfate x2G and IV KCl boluses x2 -Continue IVF with KCl -repeat labs this afternoon and in am Moderate Protein-Calorie Malnutrition: albumin 2.2. Patient frail and cachectic on exam with BMI 18. -add Ensure to meals -consult health program director Tachycardia: HR up to 150s on telemetry, appears to be sinus tachycardia. Suspect secondary to sepsis vs hyperthyroidism vs missing medications -check EKG -continue metoprolol, consider increasing dose -monitor on telemetry Hyperthyroidism: TSH < 0.005 and Free T4 elevated at 7.75. Patient already on methimazole. -continue patient's methimazole, increase from 5mg bid to 5mg q8h -repeat TSH/T4 in 4-6weeks Diabetes Mellitus: All recent HgbA1c since 2012 have been under 6.0 with most recent HgbA1c 5.0 on 01/20/17. -will discontinue metformin for now -monitor accu-checks and cover with low dose SSI -repeat HgbA1c pending Subdural hematoma: Stable from previous admissions, denies any new headaches or recent falls -Neurosurgery consulted on previous admissin, recommended f/up with in the clinic; no interventions needed DVT Prophylaxis: Heparin sq Kristi Grace PA-C Mar 04, 2017 11:24 am
[2017-03-04] MEDS: DOCUSATE SODIUM 50 MG/SENNA 8.6 MG TAB PO SCH ×3 (11:26→21:55)
[2017-03-04] MEDS: NITROFURANTOIN MONOHYD MACROCR 100 MG CAP PO SCH ×2 (11:26→17:00)
[2017-03-04] MEDS: METOPROLOL TARTRATE 25 MG TAB PO SCH ×3 (11:26→21:55)
[2017-03-04] MEDS: amLODIPine BESYLATE 5 MG TAB PO SCH (11:27)
[2017-03-04] MEDS: SODIUM CHLORIDE 0.9% FLUSH 10 ML FLUSH IV FLUSH SCH ×2 (11:27→21:00)
[2017-03-04] MEDS: MAGNESIUM SULFATE 1 GM PREMIX 100 ML IV SCH ×2 (11:28→18:00)
[2017-03-04] MEDS: FAMOTIDINE 20 MG/2 ML VIAL IV PUSH SCH ×3 (11:29→22:32)
[2017-03-04 12:35] LABS: HEMOGLOBIN A1C 5.3 % (4.3-6.0)
[2017-03-04] MEDS: POTASSIUM CHLOR 20 MEQ PREMIX 100 ML IV SCH ×2 (13:00→13:16)
[2017-03-04] MEDS: D5-1/2 NS + KCL 20 MEQ INJ 1,000 ML IV SCH ×2 (13:03→21:10)
--- NOTE | 2017-03-04 13:17 | RADRPT ---
EXAM DATE/TIME: 03/04/2017 12:32 [place] COMPARISON: No previous studies available for comparison. INDICATIONS : Abdomen pain. MEDICAL HISTORY : Hypercholesterolemia. Hypertension. Ulcers. CVA. SURGICAL HISTORY : Appendectomy. Cholecystectomy. Tubal ligation. ENCOUNTER: Initial ACUITY: 1 day PAIN SCORE: 2/10 LOCATION: Bilateral upper quadrant MEASUREMENTS: LIVER: 11.5 cm length COMMON DUCT: 15 mm RIGHT KIDNEY: 9.4 x 4.2 x 5.2 cm LEFT KIDNEY: 9.8 x 4.1 x 5.1 cm SPLEEN: 7.2 cm length AORTA: 2.7cm maximal FINDINGS: LIVER: Normal echotexture without focal lesion or ductal dilatation. COMMON DUCT: The common bile duct is distended measuring 15 mm. No intraluminal mass or stone visualized. GALLBLADDER: The patient is status post cholecystectomy. PANCREAS: The visualized portions are within normal limits. RIGHT KIDNEY: No hydronephrosis, stone or mass. LEFT KIDNEY: No hydronephrosis, stone or mass. SPLEEN: No focal lesion. AORTA: Non aneurysmal. IVC: Within normal limits. CONCLUSION: Distended common bile duct likely reflecting a reservoir phenomenon following cholecystectomy. Juan Carlos Dhillon MD on March 04, 2017 at 13:14 Board Certified Radiologist. This report was verified electronically.
[2017-03-04 14:00] VITALS: BP 172/76; PULSE 80; RESP 18; TEMP 98; O2SAT 98
[2017-03-04] MEDS: METHIMAZOLE 5 MG TAB PO SCH ×3 (16:02→22:00)
[2017-03-04] MEDS: cefTRIAXone INJ 1,000 MG in SODIUM CHLORIDE 0.9% INJ 100 ML IV SCH (16:54)
[2017-03-04 17:10] LABS: MAGNESIUM 1.7 MG/DL (1.5-2.5)
[2017-03-04 17:21] VITALS: BP 145/63
[2017-03-04] MEDS ORDERED: POTASSIUM CHLOR 20 MEQ PREMIX 100 ML IV SCH (18:00)
[2017-03-04] MEDS ORDERED: MAGNESIUM SULFATE 1 GM PREMIX 100 ML IV SCH (18:00)
[2017-03-04 20:00] VITALS: BP 129/56; PULSE 102; PULSE 91; RESP 18; TEMP 98.4; O2SAT 99
--- NOTE | 2017-03-04 22:25 | EKG ---
Date Performed: 03/04/2017 Time Performed: 10:01:49 PTAGE: 81 years EKG: SINUS TACHYCARDIA NONSPECIFIC ST & T-WAVE ABNORMALITY ABNORMAL RHYTHM ECG PREVIOUS TRACING : 02/27/2017 20.58 Compared to prior tracing no significant change DOCTOR: Zachary Blank Interpretating Date/Time 03/04/2017 22:24:09
[2017-03-05] VITALS (10 sets, daily range): BP systolic 127–165; BP diastolic 56–99; PULSE 72–98; RESP 16–18; TEMP 97.8–98.3; O2SAT 96–100
[2017-03-05] MEDS: HEPARIN SODIUM - SQ 10,000 UNITS/ML VIAL SQ SCH (03:00)
[2017-03-05] MEDS: METHIMAZOLE 5 MG TAB PO SCH ×3 (06:21→21:18)
[2017-03-05] MEDS: D5-1/2 NS + KCL 20 MEQ INJ 1,000 ML IV SCH ×2 (07:10→22:39)
[2017-03-05] MEDS: INSULIN ASPART SUPPLEMENTAL SCALE SQ SCH ×4 (08:00→21:00)
[2017-03-05] MEDS: DOCUSATE SODIUM 50 MG/SENNA 8.6 MG TAB PO SCH ×2 (08:48→21:00)
[2017-03-05] MEDS: METOPROLOL TARTRATE 25 MG TAB PO SCH ×2 (08:51→21:00)
[2017-03-05] MEDS: amLODIPine BESYLATE 5 MG TAB PO SCH (08:51)
[2017-03-05] MEDS: NITROFURANTOIN MONOHYD MACROCR 100 MG CAP PO SCH ×2 (08:52→17:47)
[2017-03-05] MEDS: SODIUM CHLORIDE 0.9% FLUSH 10 ML FLUSH IV FLUSH SCH ×2 (08:52→21:00)
--- NOTE | 2017-03-05 10:03 | HHI.PR ---
Subjective Remarks Follow up confusion, hypokalemia, leukocytosis. Patient remains confused. She denies pain currently. No events reported by nursing. Objective Vitals Vital Signs Date Time Temp Pulse Resp B/P (MAP) Pulse Ox O2 Delivery O2 Flow Rate FiO2 03/05/17 04:43 72 03/05/17 04:00 98.0 81 18 165/71 (102) 100 03/05/17 02:13 76 03/05/17 00:00 76 03/05/17 00:00 98.3 87 18 127/56 (79) 99 03/04/17 20:00 102 03/04/17 20:00 98.4 91 18 129/56 (80) 99 03/04/17 17:21 145/63 (90) 03/04/17 14:00 98.0 80 18 172/76 (108) 98 I/O 03/04/17 03/04/17 03/04/17 03/05/17 03/05/17 03/05/17 07:00 15:00 23:00 07:00 15:00 23:00 Intake Total 520 ml Output Total 150 ml Balance -150 ml 520 ml IV Total 520 ml Output Urine Total 150 ml # Voids 1 2 Result Diagram: 03/04/17 0720 03/04/17 1610 Imaging Last Impressions Abdomen Ultrasound 03/04/17 0000 Signed Impressions: Service Date/Time: Saturday, March 04, 2017 12:32 - CONCLUSION: Distended common bile duct likely reflecting a reservoir phenomenon following cholecystectomy. Juan Carlos Dhillon MD Chest X-Ray 03/03/17 1154 Signed Impressions: Service Date/Time: Friday, March 03, 2017 12:34 - CONCLUSION: The lungs are clear. Migel Campos MD Objective Remarks General: Frail elderly female in no acute distress. Heart: Regular rate and rhythm. No murmur. Lungs: Clear to auscultation bilaterally. No wheezes, rales, or rhonchi. Breathing is nonlabored. Abdomen: Soft, nontender, nondistended. Extremities: No lower extremity edema. Psych: Alert, confused. Procedures None Urinary Catheter: No Vascular Central Line Catheter: No A/P Assessment and Plan 1. Generalized weakness: Continue physical therapy. Likely needs SNF placement. 2. Sepsis with UTI: Patient met criteria with leukocytosis, tachycardia. Repeat labs are pending this morning. Continue Rocephin and Macrobid. 3. Nausea/vomiting/abdominal pain: Patient has history of peptic ulcer disease and H. pylori gastritis. Continue Pepcid. Antiemetics as needed. 4. Hypokalemia, hypomagnesemia: Labs are pending today. Supplement and monitor. 5. Moderate protein calorie malnutrition: Ensure with each tray. Dietary consult. 6. Tachycardia: On telemetry, appears to be sinus tachycardia. Likely secondary to sepsis versus hyperthyroidism. Continue metoprolol. 7. Diabetes mellitus: Monitor Accu-Cheks and cover with sliding scale insulin. Metformin discontinued. 8. Subdural hematoma: No new symptoms or recent falls. Neurosurgery evaluated the patient on prior admission and recommended outpatient follow-up. 9. Hyperthyroidism: Continue Tapazole. 10. DVT prophylaxis: Avoid chemical prophylaxis secondary to subdural hematoma. KALYN Miller. Juan Fish MD Mar 05, 2017 10:03
[2017-03-05] MEDS: FAMOTIDINE 20 MG/2 ML VIAL IV PUSH SCH ×2 (11:00→22:39)
[2017-03-05] MEDS: cefTRIAXone INJ 1,000 MG in SODIUM CHLORIDE 0.9% INJ 100 ML IV SCH (15:01)
[2017-03-05] MEDS: oxyCODONE/ACETAMINOPHEN 10 MG/325 MG TAB PO PRN (17:46)
[2017-03-06] VITALS (10 sets, daily range): BP systolic 108–143; BP diastolic 54–64; PULSE 58–99; RESP 18–20; TEMP 97.6–98.3; O2SAT 100
[2017-03-06] MEDS: METHIMAZOLE 5 MG TAB PO SCH ×3 (05:36→20:18)
[2017-03-06 07:51] LABS: AUTOMATED NEUTROPHIL # 5.1 TH/MM3 (1.8-7.7); BASOPHIL % 0.2 % (0.0-2.0); EOSINOPHIL # 0.2 TH/MM3 (0-0.4); EOSINOPHIL % 2.2 % (0.0-4.0); HEMATOCRIT 26.4 % (35.0-46.0); HEMOGLOBIN 8.7 GM/DL (11.6-15.3); LYMPH % 18.1 % (9.0-44.0); LYMPHOCYTE # 1.3 TH/MM3 (1.0-4.8); MEAN CELL VOLUME 93.9 FL (80.0-100.0); MEAN CORPUSCULAR HEMOGLOBIN 30.9 PG (27.0-34.0); MEAN CORPUSCULAR HGB CONC 32.9 % (32.0-36.0); MEAN PLATELET VOLUME 8.8 FL (7.0-11.0); MONO % 7.4 % (0.0-8.0); MONOCYTE # 0.5 TH/MM3 (0-0.9); NEUT % 72.1 % (16.0-70.0); PLATELET COUNT 211 TH/MM3 (150-450); RED BLOOD COUNT 2.81 MIL/MM3 (4.00-5.30); RED CELL DISTRIBUTION WIDTH 14.6 % (11.6-17.2); WHITE BLOOD COUNT 7.1 TH/MM3 (4.0-11.0)
[2017-03-06] MEDS: INSULIN ASPART SUPPLEMENTAL SCALE SQ SCH ×4 (08:00→20:21)
[2017-03-06] MEDS: D5-1/2 NS + KCL 20 MEQ INJ 1,000 ML IV SCH (08:14)
[2017-03-06 08:15] LABS: BICARBONATE 26.3 MEQ/L (21.0-32.0); CREATININE 0.25 MG/DL (0.50-1.00); MAGNESIUM 1.4 MG/DL (1.5-2.5)
[2017-03-06] MEDS: SODIUM CHLORIDE 0.9% FLUSH 10 ML FLUSH IV FLUSH SCH ×2 (08:15→20:21)
[2017-03-06] MEDS: NITROFURANTOIN MONOHYD MACROCR 100 MG CAP PO SCH (08:16)
[2017-03-06] MEDS: DOCUSATE SODIUM 50 MG/SENNA 8.6 MG TAB PO SCH ×2 (08:16→20:17)
[2017-03-06] MEDS: METOPROLOL TARTRATE 25 MG TAB PO SCH ×2 (08:16→20:18)
[2017-03-06] MEDS: amLODIPine BESYLATE 5 MG TAB PO SCH (08:16)
[2017-03-06] MEDS: FAMOTIDINE 20 MG/2 ML VIAL IV PUSH SCH (10:42)
--- NOTE | 2017-03-06 12:44 | HHI.PR ---
Subjective Remarks The patient was resting comfortably. She was eating lunch. She said she sometimes has stomach pain but not always. She understood that rehabilitation was recommended for her. She seemed willing to try that. No acute concerns at this time. Objective Vitals Vital Signs Date Time Temp Pulse Resp B/P (MAP) Pulse Ox O2 Delivery O2 Flow Rate FiO2 03/06/17 11:37 98.3 73 18 143/64 (90) 100 03/06/17 08:05 85 03/06/17 07:40 97.6 70 18 129/59 (82) 100 03/06/17 06:15 97.9 75 20 117/59 (78) 100 03/06/17 00:38 98.0 76 19 108/54 (72) 100 03/05/17 20:30 98.0 96 18 130/68 (88) 99 03/05/17 16:00 97.8 96 16 147/64 (91) 99 03/05/17 13:22 80 I/O 03/05/17 03/05/17 03/05/17 03/06/17 03/06/17 03/06/17 07:00 15:00 23:00 07:00 15:00 23:00 # Voids 2 1 1 # Bowel Movements 1 1 Result Diagram: 03/06/17 0631 03/06/17 0631 Imaging Last Impressions Abdomen Ultrasound 03/04/17 0000 Signed Impressions: Service Date/Time: Saturday, March 04, 2017 12:32 - CONCLUSION: Distended common bile duct likely reflecting a reservoir phenomenon following cholecystectomy. Juan Carlos Dhillon MD Chest X-Ray 03/03/17 1154 Signed Impressions: Service Date/Time: Friday, March 03, 2017 12:34 - CONCLUSION: The lungs are clear. Migel Campos MD Objective Remarks General: Frail elderly female in no acute distress. HEENT: NC, AT. Heart: Regular rate and rhythm. No murmur. Lungs: Clear to auscultation bilaterally. No wheezes, rales, or rhonchi. Breathing is nonlabored. Abdomen: Soft, nontender, nondistended. Extremities: No lower extremity edema. Neuro: No gross deficits. Psych: Mood and affect appropriate. Procedures None Medications and IVs Current Medications Medications (Trade) Dose Ordered Sig/Jordan Route Start Time Stop Time Status Last Admin (Norvasc) 5 mg DAILY PO 03/04/17 09:00 03/06/17 08:16 (Lopressor) 25 mg Q12HR PO 03/03/17 21:00 03/06/17 08:16 (D50w (Vial) Inj) 50 ml UNSCH PRN IV PUSH 03/03/17 15:00 (Glucagon Inj) 1 mg UNSCH PRN OTHER 03/03/17 15:00 (NovoLOG SUPPLEMENTAL SCALE) 1 ACHS SLIDING SCALE SQ 03/03/17 17:00 03/05/17 12:00 (NS Flush) 2 ml UNSCH PRN IV FLUSH 03/03/17 15:00 (NS Flush) 2 ml BID IV FLUSH 03/03/17 21:00 03/05/17 08:52 (Tylenol) 650 mg Q4H PRN PO 03/03/17 15:00 (Zofran Inj) 4 mg Q6H PRN IVP 03/03/17 15:00 03/04/17 01:32 (Reglan Inj) 5 mg Q6H PRN IV PUSH 03/03/17 15:00 (Tylenol) 650 mg Q6H PRN PO 03/03/17 15:00 (Percocet 5-325 Mg) 1 tab Q6H PRN PO 03/03/17 15:00 (Percocet 10-325 Mg) 1 tab Q6H PRN PO 03/03/17 15:00 03/05/17 17:46 (Morphine Inj) 2 mg Q3H PRN IV PUSH 03/03/17 15:00 03/04/17 02:21 (Morphine Inj) 4 mg Q3H PRN IV PUSH 03/03/17 15:00 (Narcan Inj) 0.4 mg UNSCH PRN IV PUSH 03/03/17 15:00 (Lara-Colace) 1 tab BID PO 03/03/17 21:00 03/06/17 08:16 (Milk Of Magnesia Liq) 30 ml Q12H PRN PO 03/03/17 15:00 (Senokot) 17.2 mg Q12H PRN PO 03/03/17 15:00 (Dulcolax Supp) 10 mg DAILY PRN RECTAL 03/03/17 15:00 (Lactulose Liq) 30 ml DAILY PRN PO 03/03/17 15:00 Ceftriaxone Sodium 1000 mg/ Sodium Chloride 100 ml @ 200 mls/hr Q24H IV 03/03/17 16:00 03/05/17 15:01 (Macrobid) 100 mg BIDPC PO 03/03/17 15:00 03/06/17 08:16 (Pepcid Inj) 20 mg Q12H IV PUSH 03/04/17 11:00 03/06/17 10:42 Potassium Chloride/Dextrose/ Sod Cl 1,000 ml @ 75 mls/hr [id number] IV 03/04/17 11:10 03/05/17 22:39 (Tapazole) 5 mg Q8HR PO 03/04/17 14:00 03/06/17 12:04 A/P Assessment and Plan Generalized weakness Rehab recommended by PT/ OT. - Continue physical/ occupational therapy. - CM to assist with placement. SIRS Urine culture suggestive of contaminants. - d/c antibiotics. Nausea/vomiting/abdominal pain Patient has history of peptic ulcer disease and H. pylori gastritis. US with distended CBD, likely reservoir phenomenon following cholecystectomy. Seems resolved. - Continue Pepcid. - Antiemetics as needed. - trend LFTs. Hypokalemia, hypomagnesemia Likely secondary to decreased by mouth intake. - replete with IV magnesium and KCl and monitor. Moderate protein calorie malnutrition Albumin 2.2. - Ensure with each tray. - Dietary consult. Tachycardia On telemetry appears to be sinus tachycardia. Likely secondary to sepsis versus hyperthyroidism. - Continue metoprolol and Tapazole. Diabetes mellitus Well controlled. - Monitor Accu-Cheks and cover with sliding scale insulin. - Metformin discontinued. Subdural hematoma No new symptoms or recent falls. Neurosurgery evaluated the patient on prior admission and recommended outpatient follow-up. - outpt follow-up. Hyperthyroidism Free T4 elevated. - Continue Tapazole at increased dose and follow TSH as an outpt. Anemia Seems stable. - CBC in AM. DVT prophylaxis: Avoid chemical prophylaxis secondary to subdural hematoma. KALYN Miller. Discharge Planning Anticipate d/c to SNF in 1-2 days Daryl Moffett DO Mar 06, 2017 12:44
[2017-03-06] MEDS: MAGNESIUM SULFATE 1 GM PREMIX 100 ML IV SCH ×2 (13:28→14:37)
[2017-03-06] MEDS: POTASSIUM CHLOR 20 MEQ PREMIX 100 ML IV SCH ×2 (14:16→16:14)
[2017-03-06] MEDS: oxyCODONE/ACETAMINOPHEN 10 MG/325 MG TAB PO PRN (17:49)
[2017-03-07] VITALS (8 sets, daily range): BP systolic 116–137; BP diastolic 62–75; PULSE 56–81; RESP 16–19; TEMP 98.2–98.6; O2SAT 99–100
[2017-03-07] MEDS: METHIMAZOLE 5 MG TAB PO SCH ×2 (05:58→11:33)
[2017-03-07 07:00] LABS: HEMATOCRIT 26.9 % (35.0-46.0); HEMOGLOBIN 9.1 GM/DL (11.6-15.3); MEAN CELL VOLUME 93.7 FL (80.0-100.0); MEAN CORPUSCULAR HEMOGLOBIN 31.6 PG (27.0-34.0); MEAN CORPUSCULAR HGB CONC 33.7 % (32.0-36.0); MEAN PLATELET VOLUME 8.5 FL (7.0-11.0); PLATELET COUNT 220 TH/MM3 (150-450); RED BLOOD COUNT 2.87 MIL/MM3 (4.00-5.30); RED CELL DISTRIBUTION WIDTH 14.4 % (11.6-17.2); WHITE BLOOD COUNT 7.1 TH/MM3 (4.0-11.0)
[2017-03-07 07:23] LABS: ALBUMIN 1.7 GM/DL (3.4-5.0); BICARBONATE 26.3 MEQ/L (21.0-32.0); CALCIUM 8.3 MG/DL (8.5-10.1); CREATININE 0.29 MG/DL (0.50-1.00); DIRECT BILIRUBIN ADULT 0.2 MG/DL (0.0-0.2); MAGNESIUM 1.9 MG/DL (1.5-2.5)
[2017-03-07 07:26] LABS: INDIRECT BILIRUBIN 0.1 MG/DL (0.0-0.8); TOTAL BILIRUBIN ADULT 0.3 MG/DL (0.2-1.0); TOTAL PROTEIN 6.4 GM/DL (6.4-8.2)
[2017-03-07] MEDS: METOPROLOL TARTRATE 25 MG TAB PO SCH (07:38)
[2017-03-07] MEDS: DOCUSATE SODIUM 50 MG/SENNA 8.6 MG TAB PO SCH (07:38)
[2017-03-07] MEDS: amLODIPine BESYLATE 5 MG TAB PO SCH (07:39)
[2017-03-07] MEDS: SODIUM CHLORIDE 0.9% FLUSH 10 ML FLUSH IV FLUSH SCH (07:39)
[2017-03-07] MEDS: INSULIN ASPART SUPPLEMENTAL SCALE SQ SCH ×2 (07:39→11:36)
[2017-03-07] MEDS ORDERED: METH5 PO (09:17)
[2017-03-07] MEDS ORDERED: MAAL10003 CHEW (09:22)
[2017-03-07] MEDS ORDERED: PANT40TA3 PO (09:22)
--- NOTE | 2017-03-07 09:23 | HHI.DCPOC ---
Discharge Care Plan Diagnosis: (1) Nausea (2) Tachycardia (3) Hyperthyroidism (4) Abdominal pain Goals to Promote Your Health * To prevent worsening of your condition and complications * To maintain your health at the optimal level Directions to Meet Your Goals Take your medications as prescribed Follow your dietary instruction Follow activity as directed Keep your appointments as scheduled Take your immunizations and boosters as scheduled If your symptoms worsen call your PCP, if no PCP go to Urgent Care Center or Emergency Room Smoking is Dangerous to Your Health. Avoid second hand smoke Call the 24-hour hour crisis hotline for domestic abuse at Daryl Moffett DO Mar 07, 2017 09:23
--- NOTE | 2017-03-07 09:28 | HHI.DS ---
Discharge Summary Admission Date Mar 04, 2017 at 10:50 Discharge Date: Mar 07, 2017 Admitting Diagnosis AMS, UTI, Nausea/vomiting (1) Abdominal pain ICD Code: R10.9 - Unspecified abdominal pain Diagnosis: Principal (2) Nausea ICD Code: R11.0 - Nausea Diagnosis: Principal (3) Tachycardia ICD Code: R00.0 - Tachycardia, unspecified Diagnosis: Principal (4) Hyperthyroidism ICD Code: E05.90 - Thyrotoxicosis, unspecified without thyrotoxic crisis or storm Diagnosis: Principal Procedures None Brief History - From Admission The patient is in 81 year old female who presents to the emergency department via EMS for evaluation of increasing weakness, lethargy and decreased appetite. Patient has been admitted into our facility 4 times in last two months. She was recently treated for a urinary tract infection, ICH, and electrolyte abnormalities at our facility. She currently lives alone and is having a difficult time performing ADLs. Dr Reynoso discharge the patient from our facility 2 days ago with PT and home health care. The home health care nurse called 911 this morning to report that the patient has not been eating or ambulating in her home. Upon arrival to the emergency department the patient started vomiting. No hematemesis. Had recommended that patient go to SNF previously but she declined now that she gave that a try and failed she needs to go to SNF await clearance by [employer] CBC/BMP: 03/07/17 0635 03/07/17 0635 Significant Findings Laboratory Tests Test 03/04/17 12:30 03/04/17 16:10 03/06/17 06:31 03/07/17 06:35 Potassium Level 3.1 MEQ/L (3.5-5.1) 3.2 MEQ/L (3.5-5.1) Red Blood Count 2.81 MIL/MM3 (4.00-5.30) 2.87 MIL/MM3 (4.00-5.30) Hemoglobin 8.7 GM/DL (11.6-15.3) 9.1 GM/DL (11.6-15.3) Hematocrit 26.4 % (35.0-46.0) 26.9 % (35.0-46.0) Neutrophils (%) (Auto) 72.1 % (16.0-70.0) Creatinine 0.25 MG/DL (0.50-1.00) 0.29 MG/DL (0.50-1.00) Random Glucose 126 MG/DL (74-106) 109 MG/DL (74-106) Calcium Level 8.0 MG/DL (8.5-10.1) 8.3 MG/DL (8.5-10.1) Magnesium Level 1.4 MG/DL (1.5-2.5) Chloride Level 109 MEQ/L (98-107) 113 MEQ/L (98-107) Albumin 1.7 GM/DL (3.4-5.0) Imaging Last Impressions Abdomen Ultrasound 03/04/17 0000 Signed Impressions: Service Date/Time: Saturday, March 04, 2017 12:32 - CONCLUSION: Distended common bile duct likely reflecting a reservoir phenomenon following cholecystectomy. Juan Carlos Dhillon MD Chest X-Ray 03/03/17 1154 Signed Impressions: Service Date/Time: Friday, March 03, 2017 12:34 - CONCLUSION: The lungs are clear. Migel Campos MD PE at Discharge General: Frail elderly female in no acute distress. HEENT: NC, AT. Heart: Regular rate and rhythm. No murmur. Lungs: Clear to auscultation bilaterally. No wheezes, rales, or rhonchi. Breathing is nonlabored. Abdomen: Soft, nontender, nondistended. Extremities: No lower extremity edema. Neuro: No gross deficits. Psych: Mood and affect appropriate. Pt update on day of discharge The patient said she was feeling a little bit better this morning. She said she was trying to eat. She said her pain was a little bit better. She was agreeable with going to a correction facility. Hospital Course Generalized weakness/ Malnutrition Rehabilitation was recommended by PT/ OT. Case management was consulted to assist with placement. The pt received Ensure with meals. A dietary consult was placed. She received potassium and magnesium supplementation as needed. She will have a repeat BMP in 3-5 days. SIRS The pt presented with tachycardia and leukocytosis, which have resolved. Urine culture was negative. Antibiotics were discontinued. Nausea/vomiting/abdominal pain Patient has history of peptic ulcer disease and H. pylori gastritis. US with distended CBD, likely reservoir phenomenon following cholecystectomy. She received antiemetics as needed. LFTs were normal. She will be discharged on a PPI and Maalox. She will be referred to GI as an outpt. Tachycardia On telemetry she was noted to be sinus tachycardia, confirmed on EKG. She was continued on her home metoprolol dose. Her home Tapazole dose was increased. Diabetes mellitus A1c was 5.3%. We monitored Accu-Cheks and covered with sliding scale insulin. Metformin was discontinued. Subdural hematoma Recently discharged from the hospital. Neurosurgery evaluated the patient on prior admission and recommended outpatient follow-up. She will follow up with neurosurgery as scheduled. Hyperthyroidism Tapazole dose was increased. The pt will need a repeat TSH as an outpt in two weeks. Pt Condition on Discharge: Stable Discharge Disposition: Discharge to SNF Discharge Time: > 30 minutes Discharge Instructions DIET: Follow Instructions for: Low Residue Diet Activities you can perform: Weight Bearing as Pam Follow up Referrals: Gastroenterology - 1 Week Neurosurgery - 2 Weeks PCP Follow-up - 1 Week New Orders: COMP MET PROF (CMP) - 3-5 Days MAGNESIUM (MG) - 3-5 Days TSH 3RD GEN - 2 Weeks New Medications: Calcium Carbonate-Simethicone (Maalox Advanced Maximum Strength) 1,000-60 Mg Chew 1 TAB CHEW ACHS PRN for INDIGESTION OR UPSET STOMACH for 30 Days, TAB 0 Refills Insulin Aspart Inj (Novolog Inj) 1,000 Unit/10 Ml Vial 1-9 UNITS SQ ACHS for Blood Sugar Management, #10 ML 0 Refills Max dose at bedtime:( )units; sugars less than 70,(0)units; sugars 150-199,(1) unit; sugars 200-249,(3) units; sugars 250-299,(5) units; sugars 300-349,(7) units; sugars greater than 349,(9) units Pantoprazole (Pantoprazole) 40 Mg Tab 40 MG PO DAILY for Reflux, #30 TAB 0 Refills Methimazole (Tapazole) 5 Mg Tab 5 MG PO Q8HR for Hyperthyroidism for 30 Days, TAB Continued Medications: Amlodipine (Norvasc) 5 Mg Tab 5 MG PO DAILY for Blood Pressure Management for 30 Days, #30 TAB Metoprolol Tartrate (Metoprolol Tartrate) 25 Mg Tab 25 MG PO Q12HR for Blood Pressure Management, #60 TAB Sennosides (Senna-Lax) 8.6 Mg Tab 17.2 MG PO Q12H PRN for Moderate constipation, #120 TAB Walker/Adult/Folding (Walker/Adult/Folding) 1 Mis Mis EA .ROUTE DIRECTED PRN for unsteady gait, #1 0 Refills [Lactulose Liq] () 30 ML SYRP 30 ML PO DAILY PRN for SEVERE CONSITIPATION, #900 ML Discontinued Medications: Metformin (Metformin) 500 Mg Tab 500 MG PO DAILY for Blood Sugar Management, #30 TAB 0 Refills With a meal Methimazole (Tapazole) 5 Mg Tab 5 MG PO Q12HR for Thyroid, #60 TAB Daryl Moffett DO Mar 07, 2017 09:28
[2017-03-07] MEDS ORDERED: NOVOLOGP2 SQ (09:32)
[2017-03-07] MEDS: oxyCODONE/ACETAMINOPHEN 10 MG/325 MG TAB PO PRN (11:33)
== END 2017-03-07 16:41 | DRG 641 ==
LOC: NEPC 11:15 → NEDA 14:56 → NEPFCDU 15:59 → OBSVTOIN 03-04 10:50 → N05A 03-04 13:49
PROVIDERS: ADMIT Hospitalist; ATTEND Hospitalist
DX: E44.0 Moderate protein-calorie malnutrition (principal); R65.10 Systemic inflammatory response syndrome (SIRS) of non-infectious origin without acute organ dysfunction; E11.9 Type 2 diabetes mellitus without complications; I10 Essential (primary) hypertension; E83.42 Hypomagnesemia; D64.9 Anemia, unspecified; Z68.1 Body mass index [BMI] 19.9 or less, adult; R53.1 Weakness; Z87.11 Personal history of peptic ulcer disease; R11.2 Nausea with vomiting, unspecified; R00.0 Tachycardia, unspecified; Z79.84 Long term (current) use of oral hypoglycemic drugs; E05.90 Thyrotoxicosis, unspecified without thyrotoxic crisis or storm; E87.6 Hypokalemia
CPT/HCPCS: 71010; 76700; 76937; 80048; 80053; 80076; 81001; 82550; 82948; 83036; 83605; 83735; 84100; 84132; 84439; 84443; 84484; 85025; 85027; 87040; 87086; 93005; 96361; 96365; 96372; 96375; G0378; J0696; J1644; J1815; J2270; J2405; J3475; J3480; J7030; J7040

== ENCOUNTER 2017-03-09 13:56 | Inpatient (IN) | payer OTHER, MEDICAID, MEDICARE ==
[~2017-03-09] VITALS: Ht 160 cm; Wt 34.6 kg
[2017-03-09] VITALS (10 sets, daily range): BP systolic 128–159; BP diastolic 57–93; PULSE 103–150; RESP 17–25; TEMP 98.6–98.9; O2SAT 98–100
[~2017-03-09 13:56] MED LIST changes: +MAAL10003 CHEW; -METF500T PO; +NOVOLOGP2 SQ; +PANT40TA3 PO
[2017-03-09] MEDS ORDERED: SODIUM CHLOR 0.9% 1000 ML INJ 1,000 ML IV SCH ×2 (14:58→19:00)
[2017-03-09] MEDS ORDERED: SODIUM CHLORIDE 0.9% FLUSH 10 ML FLUSH IV FLUSH PRN ×4 (15:00→17:15)
--- NOTE | 2017-03-09 15:26 | PD ---
HPI Chief Complaint: Syncope/Near-Syncope Time Seen by Provider: 14:45 Travel History International Travel<30 days: No Contact w/Intl Traveler<30days: No Traveled to known affect area: No History of Present Illness HPI The patient is a 81-year-old female who presents emergency department via EMS for possible syncope at the alf. The patient was at the alf earlier today, possibly had a syncopal episode. Upon arrival patient was noted be tachycardic, answer some questions yes or no, but is a poor and somewhat limited historian. The patient denies any chest pain, shortness of breath, but does complain of abdominal pain. According to EMS records patient apparently had nausea and vomiting at the alf. She does complain of abdominal pain, however, is unable to localize the abdominal pain. No further information is obtainable from the patient secondary to her current clinical condition. PFSH Past Medical History Asthma: No Autoimmune Disease: No Blood Disorders: No Anxiety: No Depression: No Heart Rhythm Problems: No Cancer: No Cardiovascular Problems: No High Cholesterol: Yes Chemotherapy: No Chest Pain: Yes Congestive Heart Failure: No COPD: No Cerebrovascular Accident: No Diabetes: Yes Diminished Hearing: No Endocrine: No Gastrointestinal Disorders: No Genitourinary: No Headaches: Yes (MIGRAIN) Hypertension: Yes Immune Disorder: No Implanted Vascular Access Dvce: No Musculoskeletal: No Neurologic: No Psychiatric: No Reproductive: No Respiratory: No Immunizations Current: Yes Migraines: No Radiation Therapy: No Seizures: No Sleep Apnea: No Thyroid Disease: No Ulcer: Yes Menopausal: Yes : 1 Para: 1 Miscarriage: 0 : 0 Tubal Ligation: Yes Past Surgical History Abdominal Surgery: Yes (APPENDIX ) AICD: No Appendectomy: Yes (1955) Arteriovenous Shunt: No Cardiac Surgery: No Cholecystectomy: Yes (2002) Ear Surgery: No Eye Surgery: No Genitourinary Surgery: No Gynecologic Surgery: No Insulin Pump: No Joint Replacement: No Neurologic Surgery: No Oral Surgery: No Pacemaker: No Thoracic Surgery: No Other Surgery: Yes (APPENIX, ABD SURGERY) Social History Alcohol Use: No Tobacco Use: No Substance Use: No Allergies-Medications (Allergen,Severity, Reaction): Coded Allergies: ciprofloxacin (Verified Allergy, Severe, RASH, VOMITING, 02/14/17) Reported Meds & Prescriptions Reported Meds & Active Scripts Active Novolog Inj (Insulin Aspart) 1,000 Unit/10 Ml Vial 1-9 Units SQ ACHS Max dose at bedtime:( )units; sugars less than 70,(0)units; sugars 150-199,(1) unit; sugars 200-249,(3) units; sugars 250-299,(5) units; sugars 300-349,(7) units; sugars greater than 349,(9) units Maalox Advanced Maximum Strength (Calcium Carbonate-Simethicone) 1,000-60 Mg Chew 1 Tab CHEW ACHS PRN 30 Days Pantoprazole (Pantoprazole Sodium) 40 Mg Tab 40 Mg PO DAILY Tapazole (Methimazole) 5 Mg Tab 5 Mg PO Q8HR 30 Days Senna-Lax (Sennosides) 8.6 Mg Tab 17.2 Mg PO Q12H PRN [Lactulose Liq] 30 ML Syrp 30 Ml PO DAILY PRN Metoprolol Tartrate 25 Mg Tab 25 Mg PO Q12HR Walker/Adult/Folding (Device) 1 Mis Mis Ea .ROUTE DIRECTED PRN Norvasc (Amlodipine Besylate) 5 Mg Tab 5 Mg PO DAILY 30 Days Review of Systems ROS Limitations: Clinical Condition, Altered Mental Status Except as stated in HPI: all other systems reviewed are Neg General / Constitutional: No: Fever HENT: No: Lightheadedness Cardiovascular: Positive: Syncope (possible syncope per EMS) Respiratory: No: Shortness of Breath Gastrointestinal: Positive: Nausea, Vomiting, Abdominal Pain Neurologic: Positive: Syncope (possible syncope per EMS), Change in Mentation Physical Exam Narrative GENERAL: Awake, eyes open, 81-year-old female who appears her stated age and appears somewhat and BCP. SKIN: Focused skin assessment warm/dry. HEAD: Atraumatic. Normocephalic. EYES: Pupils equal and round. No scleral icterus. No injection or drainage. ENT: No nasal bleeding or discharge. Dry mucous membranes. NECK: Trachea midline. No JVD. CARDIOVASCULAR: Irregularly irregular, heart rate 140s. RESPIRATORY: No accessory muscle use. Clear to auscultation. Breath sounds equal bilaterally. GASTROINTESTINAL: Abdomen soft, diffuse abdominal pain, no tympany noted. Rectal: Exam was performed in the presence of a female nurse. No gross blood. Guaiac negative. MUSCULOSKELETAL: No obvious deformities. No clubbing. No cyanosis. No edema. Back: No visible sacral decubitus ulcer. NEUROLOGICAL: Awake, eyes open, nonfocal. Answers some questions yes or no. PSYCHIATRIC: Appears confused. Data Data Last Documented VS Vital Signs Date Time Temp Pulse Resp B/P (MAP) Pulse Ox O2 Delivery O2 Flow Rate FiO2 03/09/17 14:17 98.6 139 18 128/60 (82) 100 Orders Orders Complete Blood Count With Diff (03/09/17 14:18) Comprehensive Metabolic Panel (03/09/17 14:18) Urinalysis - C+S If Indicated (03/09/17 14:18) Electrocardiogram (03/09/17 14:58) Prothrombin Time / Inr (Pt) (03/09/17 14:58) Act Partial Throm Time (Ptt) (03/09/17 14:58) Lactic Acid Sepsis Protocol (03/09/17 14:58) Blood Culture (03/09/17 14:58) Chest, Single Ap (03/09/17 14:58) Ct Brain W/O Iv Contrast(Rout) (03/09/17 14:58) Blood Glucose (03/09/17 14:58) Ecg Monitoring (03/09/17 14:58) Iv Access Insert/Monitor (03/09/17 14:58) Oximetry (03/09/17 14:58) Sodium Chloride 0.9% Flush (Ns Flush) (03/09/17 15:00) Sodium Chlor 0.9% 1000 Ml Inj (Ns 1000 M (03/09/17 14:58) Diltiazem Inj (Cardizem Inj) (03/09/17 15:45) Sodium Chlor 0.9% 1000 Ml Inj (Ns 1000 M (03/09/17 15:45) Lipase (03/09/17 15:22) Thyroid Stimulating Hormone (03/09/17 15:22) Potassium Chlor 20 Meq Premix (Kcl 20 Me (03/09/17 16:45) Diltiazem Inj (Cardizem Inj) (03/09/17 16:45) Sodium Chloride 0.9% Flush (Ns Flush) (03/09/17 16:45) Admit Order (Ed Use Only) (03/09/17 16:57) Labs Laboratory Tests Test 03/09/17 15:22 White Blood Count 16.8 TH/MM3 Red Blood Count 3.75 MIL/MM3 Hemoglobin 11.7 GM/DL Hematocrit 35.6 % Mean Corpuscular Volume 94.9 FL Mean Corpuscular Hemoglobin 31.3 PG Mean Corpuscular Hemoglobin Concent 32.9 % Red Cell Distribution Width 14.9 % Platelet Count 366 TH/MM3 Mean Platelet Volume 8.6 FL Neutrophils (%) (Auto) 81.8 % Lymphocytes (%) (Auto) 8.7 % Monocytes (%) (Auto) 9.3 % Eosinophils (%) (Auto) 0.1 % Basophils (%) (Auto) 0.1 % Neutrophils # (Auto) 13.8 TH/MM3 Lymphocytes # (Auto) 1.5 TH/MM3 Monocytes # (Auto) 1.6 TH/MM3 Eosinophils # (Auto) 0.0 TH/MM3 Basophils # (Auto) 0.0 TH/MM3 CBC Comment DIFF FINAL Differential Comment Prothrombin Time 13.5 SEC Prothromb Time International Ratio 1.3 RATIO Activated Partial Thromboplast Time 21.8 SEC Blood Urea Nitrogen 29 MG/DL Creatinine 0.93 MG/DL Random Glucose 167 MG/DL Total Protein 8.2 GM/DL Albumin 2.3 GM/DL Calcium Level 9.0 MG/DL Alkaline Phosphatase 117 U/L Aspartate Amino Transf (AST/SGOT) 23 U/L Alanine Aminotransferase (ALT/SGPT) 19 U/L Total Bilirubin 0.5 MG/DL Sodium Level 152 MEQ/L Potassium Level 2.9 MEQ/L Chloride Level 109 MEQ/L Carbon Dioxide Level 28.8 MEQ/L Anion Gap 14 MEQ/L Estimat Glomerular Filtration Rate 58 ML/MIN Lactic Acid Level 1.9 mmol/L Lipase 109 U/L Thyroid Stimulating Hormone 3rd Gen LESS THAN 0.005 uIU/ML MDM Medical Decision Making Medical Screen Exam Complete: Yes Emergency Medical Condition: Yes Medical Record Reviewed: Yes Interpretation(s) EKG reveals atrial fibrillation with RVR, heart rate 140s. T wave changes noted in the lateral and inferior leads. Laboratory Tests Test 03/09/17 15:22 White Blood Count 16.8 TH/MM3 Red Blood Count 3.75 MIL/MM3 Hemoglobin 11.7 GM/DL Hematocrit 35.6 % Mean Corpuscular Volume 94.9 FL Mean Corpuscular Hemoglobin 31.3 PG Mean Corpuscular Hemoglobin Concent 32.9 % Red Cell Distribution Width 14.9 % Platelet Count 366 TH/MM3 Mean Platelet Volume 8.6 FL Neutrophils (%) (Auto) 81.8 % Lymphocytes (%) (Auto) 8.7 % Monocytes (%) (Auto) 9.3 % Eosinophils (%) (Auto) 0.1 % Basophils (%) (Auto) 0.1 % Neutrophils # (Auto) 13.8 TH/MM3 Lymphocytes # (Auto) 1.5 TH/MM3 Monocytes # (Auto) 1.6 TH/MM3 Eosinophils # (Auto) 0.0 TH/MM3 Basophils # (Auto) 0.0 TH/MM3 CBC Comment DIFF FINAL Differential Comment Prothrombin Time 13.5 SEC Prothromb Time International Ratio 1.3 RATIO Activated Partial Thromboplast Time 21.8 SEC Blood Urea Nitrogen 29 MG/DL Creatinine 0.93 MG/DL Random Glucose 167 MG/DL Total Protein 8.2 GM/DL Albumin 2.3 GM/DL Calcium Level 9.0 MG/DL Alkaline Phosphatase 117 U/L Aspartate Amino Transf (AST/SGOT) 23 U/L Alanine Aminotransferase (ALT/SGPT) 19 U/L Total Bilirubin 0.5 MG/DL Sodium Level 152 MEQ/L Potassium Level 2.9 MEQ/L Chloride Level 109 MEQ/L Carbon Dioxide Level 28.8 MEQ/L Anion Gap 14 MEQ/L Estimat Glomerular Filtration Rate 58 ML/MIN Lactic Acid Level 1.9 mmol/L Lipase 109 U/L Thyroid Stimulating Hormone 3rd Gen LESS THAN 0.005 uIU/ML Last Impressions Head CT 03/09/171457 Signed Impressions: Service Date/Time: March 15:44 - CONCLUSION: 1. Stable subdural collection along the left frontoparietal lobe which has both subacute and acute components. No midline shift is noted. 2. Diffuse cerebral atrophy. Abdiel Lerma MD Chest X-Ray 03/09/171457 Signed Impressions: Service Date/Time: March 15:05 - CONCLUSION: 1. Cardiomegaly. No acute abnormality. Arvin Moreno MD Differential Diagnosis Differential diagnosis includes symptomatic anemia, dehydration, electrolyte abnormality, GI bleed, hyperkalemia, hypokalemia, hypoalbuminemia, end-of-life care, perforated viscus, pancreatitis, congestive heart failure, A. fib with RVR , arrhythmia. Narrative Course IV was established, labs are drawn and sent, and the patient was placed on cardiac telemetry monitoring and continuous pulse oximetry monitoring. EKG was ordered and interpreted. Chest x-ray was obtained. Lactic acid blood cultures were sent to lab. CT of the brain was performed. Rectal exam was performed, no gross blood, guaiac negative. EKG revealed atrial fibrillation with RVR, rate in the 140s. Therefore, patient was administered 1 L of IV fluids and Cardizem [address] of the brain reveals acute and subacute chronic subdural hematoma with no midline shift. Patient had A. fib with RVR, received Cardizem, continue to be tachycardic, therefore, was placed on a Cardizem drip. Potassium is low at 2.9, this was replaced intravenously. TSH is less than 0.005, patient is on methimazole. The patient has A. fib with RVR , will require admission. The patient appears to have poor nutritional status, multiple medical problems including subdural hematoma, poor nutritional intake, and A. fib with RVR. Patient may benefit from consultation with palliative care and/or hospice. The patient has [employer], therefore, [facility] were paged for admission. The patient has a subdural hemorrhage with acute and chronic components, does not appear to be a candidate for anticoagulation for her atrial fibrillation. The patient has had multiple recent visits to the emergency department and admissions, appears to have declining health with multiple admissions and cachexia. Patient may benefit from discussion with the family and/or palliative care/hospice care. The patient will be admitted until family or guardian is at bedside for discussion with medicine. [facility] Point of Care Internal Pos. & Neg. Controls: Passed Fecal Specimen Occult Blood: Negative Physician Communication Physician Communication The patient has [employer], therefore, [facility] were paged for admission. Diagnosis Primary Impression: Atrial fibrillation with RVR Additional Impressions: Hyperthyroidism Altered mental status Qualified Codes: R41.0 - Disorientation, unspecified Subdural hematoma Admitting Information Admitting Physician Requests: Admit Condition: Stable Hakan Felix MD Mar 09, 2017 15:25
--- NOTE | 2017-03-09 15:41 | RADRPT ---
EXAM DATE/TIME: 03/09/2017 15:05 [facility] COMPARISON: CHEST SINGLE AP, March 03, 2017, 12:34. INDICATIONS : Syncope MEDICAL HISTORY : Hypercholesterolemia. Hypertension. Ulcers. CVA. SURGICAL HISTORY : Appendectomy. Cholecystectomy. Tubal ligation. ENCOUNTER: Initial ACUITY: 1 day PAIN SCORE: Non-responsive. LOCATION: chest FINDINGS: The heart is mildly enlarged. The lungs demonstrate COPD changes but are otherwise clear. The appeara nce of the parenchyma is stable compared to a previous dated 03/03/17. Visualized bony structures demonstrate degenerative changes but are otherwise intact. CONCLUSION: 1. Cardiomegaly. No acute abnormality. Arvin Moreno MD on March 09, 2017 at 15:39 Board Certified Radiologist. This report was verified electronically.
[2017-03-09] MEDS ORDERED: DILTIAZEM HCL 25 MG/5 ML VIAL IV ONE (15:45)
[2017-03-09] MEDS ORDERED: SODIUM CHLOR 0.9% 1000 ML INJ 1,000 ML IV ONE (15:45)
[2017-03-09 15:52] LABS: AUTOMATED NEUTROPHIL # 13.8 TH/MM3 (1.8-7.7); BASOPHIL % 0.1 % (0.0-2.0); EOSINOPHIL % 0.1 % (0.0-4.0); HEMATOCRIT 35.6 % (35.0-46.0); HEMOGLOBIN 11.7 GM/DL (11.6-15.3); LYMPH % 8.7 % (9.0-44.0); LYMPHOCYTE # 1.5 TH/MM3 (1.0-4.8); MEAN CELL VOLUME 94.9 FL (80.0-100.0); MEAN CORPUSCULAR HEMOGLOBIN 31.3 PG (27.0-34.0); MEAN CORPUSCULAR HGB CONC 32.9 % (32.0-36.0); MEAN PLATELET VOLUME 8.6 FL (7.0-11.0); MONO % 9.3 % (0.0-8.0); MONOCYTE # 1.6 TH/MM3 (0-0.9); NEUT % 81.8 % (16.0-70.0); PLATELET COUNT 366 TH/MM3 (150-450); RED BLOOD COUNT 3.75 MIL/MM3 (4.00-5.30); RED CELL DISTRIBUTION WIDTH 14.9 % (11.6-17.2); WHITE BLOOD COUNT 16.8 TH/MM3 (4.0-11.0)
[2017-03-09 16:10] LABS: INTERNATIONAL NORMALIZED RATIO 1.3 RATIO; PROTHROMBIN TIME - PATIENT 13.5 SEC (9.8-11.6)
--- NOTE | 2017-03-09 16:10 | RADRPT ---
EXAM DATE/TIME: 03/09/2017 15:44 [facility] COMPARISON: CT BRAIN W/O CONTRAST, February 26, 2017, 19:01. INDICATIONS : Altered mental status with confusion. RADIATION DOSE: 56.77 CTDIvol (mGy) MEDICAL HISTORY : Hypertension. Diabetes mellitus type 2. SURGICAL HISTORY : Appendectomy. Tubal ligation. ENCOUNTER: Initial ACUITY: 1 day PAIN SCALE: 8/10 LOCATION: Bilateral cranial TECHNIQUE: Multiple contiguous axial images were obtained of the head. Using automated exposure control and adj ustment of the mA and/or kV according to patient size, radiation dose was kept as low as reasonably a chievable to obtain optimal diagnostic quality images. DICOM format image data is available electro nically for review and comparison. FINDINGS: There is a stable subdural collection along the left frontoparietal lobe which has both subacute and acute components. No significant midline shift is noted. Diffuse cerebral atrophy is stable. No acute infarct or intra-axial bleed is noted. CONCLUSION: 1. Stable subdural collection along the left frontoparietal lobe which has both subacute and acute co mponents. No midline shift is noted. 2. Diffuse cerebral atrophy. Abdiel Lerma MD on March 09, 2017 at 16:06 Board Certified Radiologist. This report was verified electronically.
[2017-03-09 16:28] LABS: ALBUMIN 2.3 GM/DL (3.4-5.0); ALKALINE PHOSPHATASE 117 U/L (45-117); ALT (GPT) 19 U/L (10-53); AST (GOT) 23 U/L (15-37); BICARBONATE 28.8 MEQ/L (21.0-32.0); BLOOD UREA NITROGEN 29 MG/DL (7-18); CHLORIDE 109 MEQ/L (98-107); CREATININE 0.93 MG/DL (0.50-1.00); GLOMERULAR FILTRATION RATE 58 ML/MIN (>89); GLUCOSE,RANDOM 167 MG/DL (74-106); LIPASE 109 U/L (73-393); SODIUM (NA) 152 MEQ/L (136-145); TOTAL BILIRUBIN ADULT 0.5 MG/DL (0.2-1.0); TOTAL PROTEIN 8.2 GM/DL (6.4-8.2)
[2017-03-09] MEDS ORDERED: NALOXONE HCL 0.4 MG/ML AMP IV PUSH PRN (17:00)
[2017-03-09] MEDS ORDERED: ACETAMINOPHEN 325 MG TAB PO PRN ×2 (17:00)
[2017-03-09] MEDS ORDERED: MAGNESIUM HYDROXIDE SUSP 30 ML CUP PO PRN (17:00)
[2017-03-09] MEDS ORDERED: BISACODYL 10 MG SUPP RECTAL PRN (17:00)
[2017-03-09] MEDS ORDERED: METOCLOPRAMIDE HCL 10 MG/2 ML VIAL IV PUSH PRN (17:00)
[2017-03-09] MEDS ORDERED: oxyCODONE/ACETAMINOPHEN 10 MG/325 MG TAB PO PRN (17:00)
[2017-03-09] MEDS ORDERED: SENNOSIDES 8.6 MG TAB PO PRN (17:00)
[2017-03-09] MEDS ORDERED: oxyCODONE/ACETAMINOPHEN 5 MG/325 MG TAB PO PRN (17:00)
[2017-03-09] MEDS ORDERED: ONDANSETRON HCL 4 MG/2 ML VIAL IVP PRN (17:00)
[2017-03-09] MEDS ORDERED: MORPHINE SULFATE 2 MG/ML INJ IV PUSH PRN ×4 (17:00)
[2017-03-09] MEDS ORDERED: LACTULOSE SYRUP 20 GM/30 ML CUP PO PRN (17:00)
[2017-03-09] MEDS ORDERED: DILTIAZEM INJ 125 MG in SODIUM CHLORIDE 0.9% INJ 100 ML IV PRN (17:15)
[2017-03-09] MEDS: DILTIAZEM INJ 125 MG in SODIUM CHLORIDE 0.9% INJ 100 ML IV PRN (17:17)
[2017-03-09] MEDS: POTASSIUM CHLOR 20 MEQ PREMIX 100 ML IV SCH ×2 (17:17→20:38)
[2017-03-09 17:52] LABS: AMORPHOUS SEDIMENT, URINE RARE; BILIRUBIN, URINE NEG (NEG); BLOOD, URINE NEG (NEG); GLUCOSE,URINE NEG (NEG); KETONE, URINE 40 mg/dL (NEG); NITRITE,URINE NEG (NEG); URINE COLOR YELLOW (YELLW/STRAW); URINE LEUKOCYTE ESTERASE NEG (NEG)
[2017-03-09 18:57] LABS: TROPONIN I 0.11 NG/ML (0.02-0.05)
[2017-03-09] MEDS: METOPROLOL TARTRATE 25 MG TAB PO SCH (20:37)
[2017-03-09] MEDS: SODIUM CHLORIDE 0.9% FLUSH 10 ML FLUSH IV FLUSH SCH (20:37)
[2017-03-09] MEDS: DOCUSATE SODIUM 50 MG/SENNA 8.6 MG TAB PO SCH (20:38)
[2017-03-09] MEDS ORDERED: SODIUM CHLORIDE 0.9% FLUSH 10 ML FLUSH IV FLUSH SCH (21:00)
[2017-03-10] VITALS (31 sets, daily range): BP systolic 114–166; BP diastolic 47–72; PULSE 78–124; RESP 16–19; TEMP 97.5–98.7; O2SAT 95–100
--- NOTE | 2017-03-10 00:42 | HHI.HP ---
[facility] Jf Valderrama M.D. Admission Diagnosis atrial fibrillation with RVR, acute on chronic subdural, dehydration Diagnoses: Travel History International Travel<30 Days: No Contact w/Intl Traveler <30 Da: No Traveled to Known Affected Are: No History of Present Illness 81-year-old female with a past medical history significant for subdural hematoma , history of SVT, diabetes mellitus, H. pylori gastritis/peptic ulcer and hypertension presents to the emergency department for evaluation of a syncopal episode. The patient currently resides in a correction where she was reported to have had a possible syncopal episode. She reportedly had nausea and vomiting earlier. On arrival to the emergency department, EKG showed that the patient was in atrial fibrillation with rapid ventricular response, pulse 144. Head CT showed a stable subdural hematoma that has both subacute and acute components without midline shift. Chest x-ray negative for acute disease. Laboratory values significant for Na 152, K 2.9, BUN/Cr 29/0.93. WBCs 16.8. She is afebrile on arrival to the ED. The patient's mental status is at baseline. She will answer questions but is not oriented to place or time. She states she has abdominal pain but cannot further characterize it or localize it. She denies chest pain/shortness of breath. Review of Systems Denies fever or chills Denies blurry vision, otorrhea, rhinorrhea Denies sore throat and cough No chest pain, palpitations, shortness of breath Positive abdominal pain Denies constipation/diarrhea/nausea/vomiting Denies muscle pain/weakness No rashes Past Family Social History Past Medical History (Obtained from medical records) Subdural hematoma SVT H. pylori gastritis/peptic ulcer Hypertension Past Surgical History Appendectomy Cholecystectomy Breast reduction Reported Medications Reported Meds & Active Scripts Active Novolog Inj (Insulin Aspart) 1,000 Unit/10 Ml Vial 1-9 Units SQ ACHS Max dose at bedtime:( )units; sugars less than 70,(0)units; sugars 150-199,(1) unit; sugars 200-249,(3) units; sugars 250-299,(5) units; sugars 300-349,(7) units; sugars greater than 349,(9) units Maalox Advanced Maximum Strength (Calcium Carbonate-Simethicone) 1,000-60 Mg Chew 1 Tab CHEW ACHS PRN 30 Days Pantoprazole (Pantoprazole Sodium) 40 Mg Tab 40 Mg PO DAILY Tapazole (Methimazole) 5 Mg Tab 5 Mg PO Q8HR 30 Days Senna-Lax (Sennosides) 8.6 Mg Tab 17.2 Mg PO Q12H PRN [Lactulose Liq] 30 ML Syrp 30 Ml PO DAILY PRN Metoprolol Tartrate 25 Mg Tab 25 Mg PO Q12HR Walker/Adult/Folding (Device) 1 Mis Mis Ea .ROUTE DIRECTED PRN Norvasc (Amlodipine Besylate) 5 Mg Tab 5 Mg PO DAILY 30 Days Allergies: Coded Allergies: ciprofloxacin (Verified Allergy, Severe, RASH, VOMITING, 02/14/17) Family History No family history of CAD/DM Social History No alcohol, tobacco or illicit drug use Physical Exam Vital Signs Vital Signs Date Time Temp Pulse Resp B/P (MAP) Pulse Ox O2 Delivery O2 Flow Rate FiO2 03/10/17 00:02 98.7 99 18 117/47 (70) 96 03/10/17 00:00 102 03/09/17 23:00 104 03/09/17 22:00 116 03/09/17 21:00 104 03/09/17 20:00 98.7 115 18 129/57 (81) 99 03/09/17 20:00 103 03/09/17 18:59 03/09/17 17:45 107 22 133/60 (84) 99 Room Air 03/09/17 17:38 98 21 03/09/17 17:30 113 17 159/65 (96) 99 Room Air 03/09/17 17:17 123 155/70 03/09/17 16:30 126 25 155/70 (98) 98 Room Air 03/09/17 15:00 98.9 150 24 129/93 (105) 99 Room Air 03/09/17 14:17 98.6 139 18 128/60 (82) 100 Physical Exam GENERAL: Thin, female lying in bed SKIN: No rashes, ecchymoses or lesions. Cool and dry. HEAD: Atraumatic. Normocephalic. No temporal or scalp tenderness. EYES: Pupils equal round and reactive. Extraocular motions intact. No scleral icterus. No injection or drainage. ENT: Nose without bleeding, purulent drainage or septal hematoma. Throat without erythema, tonsillar hypertrophy or exudate. Uvula midline. Airway patent. NECK: Trachea midline. No JVD or lymphadenopathy. Supple, nontender, no meningeal signs. CARDIOVASCULAR: Tachycardic. Irregularly irregular rhythm without murmurs, gallops, or rubs. RESPIRATORY: Clear to auscultation. Breath sounds equal bilaterally. No wheezes , rales, or rhonchi. GASTROINTESTINAL: Abdomen soft, diffusely tender to palpation throughout, nondistended. No hepato-splenomegaly, or palpable masses. No guarding. MUSCULOSKELETAL: Extremities without clubbing, cyanosis, or edema. No joint tenderness, effusion, or edema noted. No calf tenderness. NEUROLOGICAL: Awake and alert. Cranial nerves II through XII intact. Motor and sensory grossly within normal limits. Normal speech. Oriented only to self. Able to follow commands. No lateralizing signs. Laboratory Laboratory Tests Test 03/09/17 15:22 03/09/17 16:20 03/09/17 22:46 White Blood Count 16.8 Red Blood Count 3.75 Hemoglobin 11.7 Hematocrit 35.6 Mean Corpuscular Volume 94.9 Mean Corpuscular Hemoglobin 31.3 Mean Corpuscular Hemoglobin Concent 32.9 Red Cell Distribution Width 14.9 Platelet Count 366 Mean Platelet Volume 8.6 Neutrophils (%) (Auto) 81.8 Lymphocytes (%) (Auto) 8.7 Monocytes (%) (Auto) 9.3 Eosinophils (%) (Auto) 0.1 Basophils (%) (Auto) 0.1 Neutrophils # (Auto) 13.8 Lymphocytes # (Auto) 1.5 Monocytes # (Auto) 1.6 Eosinophils # (Auto) 0.0 Basophils # (Auto) 0.0 CBC Comment DIFF FINAL Differential Comment Prothrombin Time 13.5 Prothromb Time International Ratio 1.3 Activated Partial Thromboplast Time 21.8 Blood Urea Nitrogen 29 Creatinine 0.93 Random Glucose 167 Total Protein 8.2 Albumin 2.3 Calcium Level 9.0 Alkaline Phosphatase 117 Aspartate Amino Transf (AST/SGOT) 23 Alanine Aminotransferase (ALT/SGPT) 19 Total Bilirubin 0.5 Sodium Level 152 Potassium Level 2.9 Chloride Level 109 Carbon Dioxide Level 28.8 Anion Gap 14 Estimat Glomerular Filtration Rate 58 Lactic Acid Level 1.9 Total Creatine Kinase 38 Troponin I 0.11 Lipase 109 Thyroid Stimulating Hormone 3rd Gen LESS THAN 0.005 Urine Color YELLOW Urine Turbidity CLEAR Urine pH 6.0 Urine Specific [place] 1.015 Urine Protein 30 Urine Glucose (UA) NEG Urine Ketones 40 Urine Occult Blood NEG Urine Nitrite NEG Urine Bilirubin NEG Urine Urobilinogen LESS THAN 2.0 Urine Leukocyte Esterase NEG Urine WBC LESS THAN 1 Urine Amorphous Sediment RARE Microscopic Urinalysis Comment CULT NOT INDICATED Date/Time Source Procedure Growth Status 03/09/17 15:25 Blood Peripheral Aerobic Blood Culture Pending Received 03/09/17 15:25 Blood Peripheral Anaerobic Blood Culture Pending Received Result Diagram: 03/09/17 1522 03/09/17 1522 Capbebeto VTE Risk Assessment Caprinmiracle VTE Risk Assessment: Mod/High Risk (score >= 2) Caprini Risk Assessment Model Point Value = 1 Point Value = 2 Point Value = 3 Point Value = 5 Age 41-60 Minor surgery BMI > 25 kg/m2 Swollen legs Varicose veins or History of unexplained or recurrent spontaneous Oral contraceptives or hormone replacement Sepsis (< 1 month) Serious lung disease, including pneumonia (< 1 month) Abnormal pulmonary function Acute myocardial infarction Congestive heart failure (< 1 month) History of inflammatory bowel disease Medical patient at bed rest Age 61-74 Arthroscopic surgery Major open surgery (> 45 min) Laparoscopic surgery (> 45 min) Malignancy Confined to bed (> 72 hours) Immobilizing plaster cast Central venous access Age >= 75 History of VTE Family history of VTE Factor V Leiden Prothrombin [id number] Lupus anticoagulant Anticardiolipin antibodies Elevated serum homocysteine Heparin-induced thrombocytopenia Other congenital or acquired thrombophilia Stroke (< 1 month) Elective arthroplasty Hip, pelvis, or leg fracture Acute spinal cord injury (< 1 month) Prophylaxis Regimen Total Risk Factor Score Risk Level Prophylaxis Regimen 0-1 Low Early ambulation 2 Moderate Order ONE of the following: *Sequential Compression Device (SCD) *Heparin 5000 units SQ BID 3-4 Higher Order ONE of the following medications: *Heparin 5000 units SQ TID *Enoxaparin/Lovenox 40 mg SQ daily (WT < 150 kg, CrCl > 30 mL/min) *Enoxaparin/Lovenox 30 mg SQ daily (WT < 150 kg, CrCl > 10-29 mL/min) *Enoxaparin/Lovenox 30 mg SQ BID (WT < 150 kg, CrCl > 30 mL/min) AND/OR *Sequential Compression Device (SCD) 5 or more Highest Order ONE of the following medications: *Heparin 5000 units SQ TID (Preferred with Epidurals) *Enoxaparin/Lovenox 40 mg SQ daily (WT < 150 kg, CrCl > 30 mL/min) *Enoxaparin/Lovenox 30 mg SQ daily (WT < 150 kg, CrCl > 10-29 mL/min) *Enoxaparin/Lovenox 30 mg SQ BID (WT < 150 kg, CrCl > 30 mL/min) AND *Sequential Compression Device (SCD) Assessment and Plan Assessment and Plan Assessment/plan: 1. Atrial fibrillation with rapid ventricular response EKG significant for atrial fibrillation with rapid ventricular response, no ST segment elevations or depressions, reviewed by me Les aguero Telemetry Cardiology consulted, appreciate recommendations Electrolyte replacement as below 2. Subdural hematoma Patient with known subdural hematoma CT of the head shows subdural collection with acute and subacute components, stable Patient seen by neurosurgery on during previous hospitalization on 02/26 who recommended outpatient follow-up 3. Electrolyte abnormalities Hypernatremia - NS Hypokalemia - status post IV repletion Follow-up BMP Magnesium level pending 4. Hypertension Continue home metoprolol, amlodipine 5. Diabetes mellitus SSI Monitor blood glucose 6. PUD Continue home Protonix Patient's functional status continues to decline. Palliative care consulted to clarify goals of treatment. FEN Clear liquid diet pending swallow eval Electrolytes: as above NS at 70 cc/hr Holding pharmacologic anticoagulation for subdural bleed Physician Certification 2 Midnight Certification Type: Admission for Inpatient Services Order for Inpatient Services The services are ordered in accordance with Medicare regulations or non- Medicare payer requirements, as applicable. In the case of services not specified as inpatient-only, they are appropriately provided as inpatient services in accordance with the 2-midnight benchmark. Estimated LOS (days): 2 2 days is the estimated time the patient will need to remain in the hospital, assuming treatment plan goals are met and no additional complications. Post-Hospital Plan: Not yet determined Josie Estevez MD Mar 10, 2017 00:42
[2017-03-10] MEDS: DILTIAZEM INJ 125 MG in SODIUM CHLORIDE 0.9% INJ 100 ML IV PRN (02:19)
[2017-03-10 03:19] LABS: ALBUMIN 1.9 GM/DL (3.4-5.0); BLOOD UREA NITROGEN 25 MG/DL (7-18); CALCIUM 8.1 MG/DL (8.5-10.1); CREATININE 0.47 MG/DL (0.50-1.00); GLOMERULAR FILTRATION RATE 127 ML/MIN (>89); GLUCOSE,RANDOM 115 MG/DL (74-106); PHOSPHORUS 2.8 MG/DL (2.5-4.9); TOTAL PROTEIN 6.6 GM/DL (6.4-8.2)
[2017-03-10 03:20] LABS: ALKALINE PHOSPHATASE 88 U/L (45-117); ALT (GPT) 14 U/L (10-53); AST (GOT) 21 U/L (15-37); MAGNESIUM 1.7 MG/DL (1.5-2.5); TOTAL BILIRUBIN ADULT 0.4 MG/DL (0.2-1.0)
[2017-03-10 03:21] LABS: BICARBONATE 25.2 MEQ/L (21.0-32.0); CHLORIDE 123 MEQ/L (98-107); FREE T4 4.39 NG/DL (0.76-1.46)
[2017-03-10 03:26] LABS: SODIUM (NA) 161 MEQ/L (136-145)
[2017-03-10] MEDS ORDERED: SODIUM CHLOR 0.45% 1000 ML INJ 1,000 ML IV SCH ×2 (04:00→09:00)
[2017-03-10 07:07] LABS: BASOPHIL % 0.2 % (0.0-2.0); HEMATOCRIT 30.5 % (35.0-46.0); HEMOGLOBIN 9.9 GM/DL (11.6-15.3); LYMPH % 9.2 % (9.0-44.0); LYMPHOCYTE # 1.3 TH/MM3 (1.0-4.8); MEAN CELL VOLUME 95.2 FL (80.0-100.0); MEAN CORPUSCULAR HGB CONC 32.6 % (32.0-36.0); MEAN PLATELET VOLUME 8.4 FL (7.0-11.0); MONO % 7.8 % (0.0-8.0); MONOCYTE # 1.1 TH/MM3 (0-0.9); NEUT % 82.8 % (16.0-70.0); PLATELET COUNT 319 TH/MM3 (150-450); RED CELL DISTRIBUTION WIDTH 15.1 % (11.6-17.2); WHITE BLOOD COUNT 14.5 TH/MM3 (4.0-11.0)
--- NOTE | 2017-03-10 08:58 | PD.CONS ---
HPI Consult Requested By Primary Care Physician Jf Valderrama M.D. History of Present Illness 81-year-old female with a past medical history significant for subdural hematoma , history of SVT, diabetes mellitus, H. pylori gastritis/peptic ulcer and hypertension presents to the emergency department for evaluation of a syncopal episode consulted for AFIB with RVR. The patient currently resides in a [facility] where she was reported to have had a presyncopal episode. On arrival to the emergency department, EKG showes sinus tachycardia with APC's. Head CT showed a stable subdural hematoma that has both subacute and acute components without midline shift. Laboratory values significant for hypernatremia, hypokalemia and [id number]. She denies chest pain/ shortness of breath.Cardiology consulted for ?Afib. Review of Systems Consitutional: DENIES: Fatigue, Fever, Chills, Weight gain, Weight loss Eyes: DENIES: Amaurosis Fugax, Change in vision HEENT: DENIES: Lightheadedness, Change in hearing Respiratory: DENIES: See HPI, Cough, Snoring, Shortness of breath, Wheezing, Sputum production Cardiovascular: DENIES: See HPI, Chest pain, Palpitations, Syncope, Tachycardia Gastrointestinal: DENIES: Nausea, Vomiting, Change in bowel habits, Reflux, Bloody stools, Melena Genitourinary: DENIES: Urinary incontinence, Difficulty voiding Integumentary: DENIES: Rash Neurologic: DENIES: Tingling or numbness, Memory problems, Poor Balance, Stroke symptoms Musculoskeletal: DENIES: Joint pain, Muscle pain, Limited range of motion, Back pain Psychiatric: DENIES: Anxiety, Depression, Sleep disturbances Hematologic: DENIES: Bruising tendencies, Bleeding tendencies Endocrine: DENIES: Weight gain, Weight loss, Thyroid disease Past Family Social History Allergies: Coded Allergies: ciprofloxacin (Verified Allergy, Severe, RASH, VOMITING, 02/14/17) Past Medical History Subdural hematoma SVT H. pylori gastritis/peptic ulcer Hypertension Past Surgical History Appendectomy Cholecystectomy Breast reduction Reported Medications Reported Meds & Active Scripts Active Novolog Inj (Insulin Aspart) 1,000 Unit/10 Ml Vial 1-9 Units SQ ACHS Max dose at bedtime:( )units; sugars less than 70,(0)units; sugars 150-199,(1) unit; sugars 200-249,(3) units; sugars 250-299,(5) units; sugars 300-349,(7) units; sugars greater than 349,(9) units Maalox Advanced Maximum Strength (Calcium Carbonate-Simethicone) 1,000-60 Mg Chew 1 Tab CHEW ACHS PRN 30 Days Pantoprazole (Pantoprazole Sodium) 40 Mg Tab 40 Mg PO DAILY Tapazole (Methimazole) 5 Mg Tab 5 Mg PO Q8HR 30 Days Senna-Lax (Sennosides) 8.6 Mg Tab 17.2 Mg PO Q12H PRN [Lactulose Liq] 30 ML Syrp 30 Ml PO DAILY PRN Metoprolol Tartrate 25 Mg Tab 25 Mg PO Q12HR Walker/Adult/Folding (Device) 1 Mis Mis Ea .ROUTE DIRECTED PRN Norvasc (Amlodipine Besylate) 5 Mg Tab 5 Mg PO DAILY 30 Days Active Ordered Medications Current Medications Medications (Trade) Dose Ordered Sig/Jordan Route Start Time Stop Time Status Last Admin (Tylenol) 650 mg Q4H PRN PO 03/09/17 17:00 (Zofran Inj) 4 mg Q6H PRN IVP 03/09/17 17:00 (Reglan Inj) 5 mg Q6H PRN IV PUSH 03/09/17 17:00 (Tylenol) 650 mg Q6H PRN PO 03/09/17 17:00 (Percocet 5-325 Mg) 1 tab Q6H PRN PO 03/09/17 17:00 (Percocet 10-325 Mg) 1 tab Q6H PRN PO 03/09/17 17:00 (Morphine Inj) 2 mg Q3H PRN IV PUSH 03/09/17 17:00 (Morphine Inj) 4 mg Q3H PRN IV PUSH 03/09/17 17:00 (Morphine Inj) 4 mg Q1H PRN IV PUSH 03/09/17 17:00 (Morphine Inj) 4 mg Q3H PRN IV PUSH 03/09/17 17:00 (Narcan Inj) 0.4 mg UNSCH PRN IV PUSH 03/09/17 17:00 (Lara-Colace) 1 tab BID PO 03/09/17 21:00 (Milk Of Magnesia Liq) 30 ml Q12H PRN PO 03/09/17 17:00 (Senokot) 17.2 mg Q12H PRN PO 03/09/17 17:00 (Dulcolax Supp) 10 mg DAILY PRN RECTAL 03/09/17 17:00 (Lactulose Liq) 30 ml DAILY PRN PO 03/09/17 17:00 (NS Flush) 2 ml UNSCH PRN IV FLUSH 03/09/17 17:15 (NS Flush) 2 ml BID IV FLUSH 03/09/17 21:00 03/09/17 20:37 Diltiazem HCl 125 mg/Sodium Chloride 125 ml @ 5 mls/hr TITRATE PRN IV 03/09/17 17:15 (Lopressor) 25 mg Q12HR PO 03/09/17 21:00 03/09/17 20:37 (Protonix) 40 mg DAILY PO 03/10/17 09:00 Sodium Chloride 1,000 ml @ 42 mls/hr [id number] IV 03/10/17 09:00 Family History No family history of CAD/DM Social History No alcohol, tobacco or illicit drug use Physical Exam Vital Signs Vital Signs Date Time Temp Pulse Resp B/P (MAP) Pulse Ox O2 Delivery O2 Flow Rate FiO2 03/10/17 06:00 104 03/10/17 05:00 108 03/10/17 04:27 98 114/51 03/10/17 04:18 98.6 99 18 114/51 (72) 95 03/10/17 04:00 83 03/10/17 03:00 96 03/10/17 02:19 93 129/53 03/10/17 02:00 93 03/10/17 01:00 105 03/10/17 00:02 98.7 99 18 117/47 (70) 96 03/10/17 00:00 102 03/09/17 23:00 104 03/09/17 22:00 116 03/09/17 21:00 104 03/09/17 20:00 98.7 115 18 129/57 (81) 99 03/09/17 20:00 103 03/09/17 18:59 03/09/17 17:45 107 22 133/60 (84) 99 Room Air 03/09/17 17:38 98 21 03/09/17 17:30 113 17 159/65 (96) 99 Room Air 03/09/17 17:17 123 155/70 03/09/17 16:30 126 25 155/70 (98) 98 Room Air 03/09/17 15:00 98.9 150 24 129/93 (105) 99 Room Air 03/09/17 14:17 98.6 139 18 128/60 (82) 100 Physical Exam GENERAL: cachetic SKIN: Warm and dry. HEAD: Normocephalic. EYES: No scleral icterus. No injection or drainage. NECK: Supple, trachea midline. No JVD or lymphadenopathy. CARDIOVASCULAR: Regular rate and rhythm without murmurs, gallops, or rubs. RESPIRATORY: Breath sounds equal bilaterally. No accessory muscle use. GASTROINTESTINAL: Abdomen soft, non-tender, nondistended. EXTREMITIES: No cyanosis, or edema. Laboratory Laboratory Tests Test 03/09/17 15:22 03/09/17 16:20 03/10/17 02:25 03/10/17 06:09 White Blood Count 16.8 14.5 Red Blood Count 3.75 3.20 Hemoglobin 11.7 9.9 Hematocrit 35.6 30.5 Mean Corpuscular Volume 94.9 95.2 Mean Corpuscular Hemoglobin 31.3 31.0 Mean Corpuscular Hemoglobin Concent 32.9 32.6 Red Cell Distribution Width 14.9 15.1 Platelet Count 366 319 Mean Platelet Volume 8.6 8.4 Neutrophils (%) (Auto) 81.8 82.8 Lymphocytes (%) (Auto) 8.7 9.2 Monocytes (%) (Auto) 9.3 7.8 Eosinophils (%) (Auto) 0.1 0.0 Basophils (%) (Auto) 0.1 0.2 Neutrophils # (Auto) 13.8 12.0 Lymphocytes # (Auto) 1.5 1.3 Monocytes # (Auto) 1.6 1.1 Eosinophils # (Auto) 0.0 0.0 Basophils # (Auto) 0.0 0.0 CBC Comment DIFF FINAL DIFF FINAL Differential Comment Prothrombin Time 13.5 Prothromb Time International Ratio 1.3 Activated Partial Thromboplast Time 21.8 Blood Urea Nitrogen 29 25 Creatinine 0.93 0.47 Random Glucose 167 115 Total Protein 8.2 6.6 Albumin 2.3 1.9 Calcium Level 9.0 8.1 Alkaline Phosphatase 117 88 Aspartate Amino Transf (AST/SGOT) 23 21 Alanine Aminotransferase (ALT/SGPT) 19 14 Total Bilirubin 0.5 0.4 Sodium Level 152 161 Potassium Level 2.9 3.5 Chloride Level 109 123 Carbon Dioxide Level 28.8 25.2 Anion Gap 14 13 Estimat Glomerular Filtration Rate 58 127 Lactic Acid Level 1.9 Total Creatine Kinase 38 30 Troponin I 0.11 0.10 Lipase 109 Thyroid Stimulating Hormone 3rd Gen LESS THAN 0.005 LESS THAN 0.005 Urine Color YELLOW Urine Turbidity CLEAR Urine pH 6.0 Urine Specific Garibaldi 1.015 Urine Protein 30 Urine Glucose (UA) NEG Urine Ketones 40 Urine Occult Blood NEG Urine Nitrite NEG Urine Bilirubin NEG Urine Urobilinogen LESS THAN 2.0 Urine Leukocyte Esterase NEG Urine WBC LESS THAN 1 Urine Amorphous Sediment RARE Microscopic Urinalysis Comment CULT NOT INDICATED Phosphorus Level 2.8 Magnesium Level 1.7 Free Thyroxine 4.39 Test 03/10/17 08:52 Date/Time Source Procedure Growth Status 03/09/17 15:25 Blood Peripheral Aerobic Blood Culture Pending Received 03/09/17 15:25 Blood Peripheral Anaerobic Blood Culture Pending Received Result Diagram: 03/10/17 0609 03/10/17 0225 Imaging Last Impressions Head CT 03/09/178 Signed Impressions: Service Date/Time: March 15:44 - CONCLUSION: 1. Stable subdural collection along the left frontoparietal lobe which has both subacute and acute components. No midline shift is noted. 2. Diffuse cerebral atrophy. Abdiel Lerma MD Chest X-Ray 03/09/171457 Signed Impressions: Service Date/Time: March 15:05 - CONCLUSION: 1. Cardiomegaly. No acute abnormality. Arvin Moreno MD Assessment and Plan Problem List: (1) Atrial fibrillation with RVR ICD Codes: I48.91 - Unspecified atrial fibrillation Status: Acute Plan: EKG and Telemetry Sinus Tachycardiac. ER EKG sinus tachycardia with APC No signs of Afib. Significant electrolytes abnormalities No CV complaints Recommendations: 1. Resume home cardiac medications 2. Discontinue Cardizem drip 3. Correct electrolytes abnormalities and tx the underlying cause of tachycardia Thank you for the opportunity to participate in the care of this patient Will be available on a PRN basis fo an questions or concerns (2) SVT (supraventricular tachycardia) ICD Codes: I47.1 - Supraventricular tachycardia (3) Diabetes ICD Codes: E11.9 - Type 2 diabetes mellitus without complications Status: Chronic (4) Hypertension ICD Codes: I10 - Essential (primary) hypertension Status: Chronic Andrew Don MD Mar 10, 2017 08:58
[2017-03-10] MEDS: DOCUSATE SODIUM 50 MG/SENNA 8.6 MG TAB PO SCH ×2 (09:00→20:24)
[2017-03-10] MEDS: SODIUM CHLORIDE 0.9% FLUSH 10 ML FLUSH IV FLUSH SCH ×2 (09:00→20:25)
[2017-03-10] MEDS: PANTOPRAZOLE SOD 40 MG DELAYED RELEASE TAB PO SCH (09:00)
[2017-03-10 09:15] LABS: BICARBONATE 23.6 MEQ/L (21.0-32.0); CALCIUM 8.5 MG/DL (8.5-10.1); CREATININE 0.44 MG/DL (0.50-1.00)
--- NOTE | 2017-03-10 09:33 | HHI.PR ---
Subjective Remarks Pt tells me she feels cold but ok. was nauseous earlier and states "vomitted a long time ago" when asked. No pain at this time. discussed w RN, pt has been having tremors since admission. Objective Vitals Vital Signs Date Time Temp Pulse Resp B/P (MAP) Pulse Ox O2 Delivery O2 Flow Rate FiO2 03/10/17 06:00 104 03/10/17 05:00 108 03/10/17 04:27 98 114/51 03/10/17 04:18 98.6 99 18 114/51 (72) 95 03/10/17 04:00 83 03/10/17 03:00 96 03/10/17 02:19 93 129/53 03/10/17 02:00 93 03/10/17 01:00 105 03/10/17 00:02 98.7 99 18 117/47 (70) 96 03/10/17 00:00 102 03/09/17 23:00 104 03/09/17 22:00 116 03/09/17 21:00 104 03/09/17 20:00 98.7 115 18 129/57 (81) 99 03/09/17 20:00 103 03/09/17 18:59 03/09/17 17:45 107 22 133/60 (84) 99 Room Air 03/09/17 17:38 98 21 03/09/17 17:30 113 17 159/65 (96) 99 Room Air 03/09/17 17:17 123 155/70 03/09/17 16:30 126 25 155/70 (98) 98 Room Air 03/09/17 15:00 98.9 150 24 129/93 (105) 99 Room Air 03/09/17 14:17 98.6 139 18 128/60 (82) 100 I/O 03/09/17 03/09/17 03/09/17 03/10/17 03/10/17 03/10/17 07:00 15:00 23:00 07:00 15:00 23:00 Intake Total 420 ml Output Total 251 ml Balance 169 ml Intake Oral 20 ml IV Total 400 ml Output Urine Total 250 ml Stool Total 1 ml # Voids 2 Result Diagram: 03/10/17 0609 03/10/17 0852 Imaging Last Impressions Head CT 03/09/17 3119 Signed Impressions: Service Date/Time: March 15:44 - CONCLUSION: 1. Stable subdural collection along the left frontoparietal lobe which has both subacute and acute components. No midline shift is noted. 2. Diffuse cerebral atrophy. Abdiel Lerma MD Chest X-Ray 03/09/17 3457 Signed Impressions: Service Date/Time: March 15:05 - CONCLUSION: 1. Cardiomegaly. No acute abnormality. Arvin Moreno MD Objective Remarks GENERAL: Thin, female lying in bed SKIN: No rashes, ecchymoses or lesions. Cool and dry. HEAD: Atraumatic. Normocephalic. No temporal or scalp tenderness. EYES: Extraocular motions intact. No scleral icterus. No injection or drainage. ENT: Nose without drainage. Airway patent. NECK: Trachea midline. CARDIOVASCULAR: mildly tachycardic. Irregularly irregular rhythm RESPIRATORY: Clear to auscultation. Breath sounds equal bilaterally. No wheezes GASTROINTESTINAL: Abdomen soft, non tender, MUSCULOSKELETAL: Extremities without edema. able to move when asked and roll on the side. NEUROLOGICAL: Awake and alert. Able to follow commands. A/P Assessment and Plan 1. Atrial fibrillation with rapid ventricular response EKG significant for atrial fibrillation with rapid ventricular response, no ST segment elevations or depressions on Diltiazem drip Telemetry Cardiology following Electrolyte replacement as below 2. Subdural hematoma Patient with known subdural hematoma CT of the head shows subdural collection with acute and subacute components, stable Patient seen by neurosurgery on during previous hospitalization on 02/26 who recommended outpatient follow-up Pt noted to have tremors mainly on the right and some muscle twitching. will consult neuro for further recs 3. Electrolyte abnormalities severe Hypernatremia - 1/2 NS @ 42ml/hr Hypokalemia - status post IV repletion Follow-up BMP q4hrs and slowly correct hypernatremia. Magnesium level wnl 4. Hypertension Continue home metoprolol, amlodipine 5. Diabetes mellitus SSI Monitor blood glucose 6. PUD Continue home Protonix Patient's functional status continues to decline. Palliative care consulted to clarify goals of treatment. FEN Clear liquid diet pending swallow eval, advance per speech therapy recs Electrolytes: as above Holding pharmacologic anticoagulation for subdural bleed Discharge Planning continue to correct hypernatremia cards, neuro consults in place palliative care also consulted for goals of care. Elva Garrison MD Mar 10, 2017 09:33
[2017-03-10] MEDS ORDERED: POTASSIUM CHLORIDE 20 MEQ CONTROLLED RELEASE TAB PO ONE (10:45)
[2017-03-10] MEDS: METOPROLOL TARTRATE 25 MG TAB PO SCH ×2 (12:03→20:24)
[2017-03-10 13:02] LABS: BICARBONATE 22.3 MEQ/L (21.0-32.0); CALCIUM 8.4 MG/DL (8.5-10.1); CREATININE 0.42 MG/DL (0.50-1.00)
[2017-03-10 14:50] LABS: HEMATOCRIT 26.7 % (35.0-46.0); HEMOGLOBIN 8.6 GM/DL (11.6-15.3)
--- NOTE | 2017-03-10 15:48 | PD.CONS ---
Consult Service Palliative Care Consult Requested By Dr. Reynoso. Primary Care Physician Jf Valderrama M.D. Reason for Consultation a. To assist with evaluation and management of symptoms including: Debility. b. To assist medical decision maker(s) with: better understanding of current medical conditions; weighing benefits/burdens of medical treatment options; making medical treatment decisions. . HPI History of Present Illness Mrs. Matthew is an 81 female with a medical history of Alzheimer's dementia, diabetes mellitus, hypertension and acute-subacute subdural hematoma. Patient presented to emergency room via EMS on 03/09/17 from half-way [facility] for evaluation of near syncopal episode and nausea vomiting. Laboratory workup revealing WBC 16.8, Hgb is stable at 11.7, platelet count 366. Sodium 152, potassium 2.9, liver enzymes within normal limits. Albumin 2.3. UA was negative for nitrates or leukocytes. Chest x-ray with no acute process. CT of the head revealing stable subdural collection along the left frontoparietal lobe which has both subacute and acute components. No midline shift noted. While in the ED, patient was found in atrial fibrillation with RVR, heart rate in the 140s. Patient was given IV fluids and placed on Cardizem drip. Patient was admitted for further management. Cardiology, Dr. Don consulted for evaluation of A. fib with RVR. Patient was on home cardiac medications, Cardizem drip was discontinued. Patient was noted with tremors since admission , pending neurology consultation. Palliative care has been consulted for further clarifications of goals of care given patient's progressive debility as evidenced by multiple acute hospitalizations within the past 4 months. Reviewed patient's past medical history. This is patient's 7th acute hospitalizations since October 2016. * 03/04/17 to 03/07/17 secondary to altered mental status, UTI, nausea vomiting. Patient was discharged to [facility] for physical rehabilitation. * 02/25/17 to 03/01/17 secondary to altered mental status. Patient also found with acute, subacute subdural hematoma. Patient residing at home with family, she was reported as being independent with all ADLs. Ambulating with walker. She was discharged home with home health. * 02/14/17 to 02/20/17 secondary to acute, subacute subdural hematoma, epigastric pain. GI was consulted. Patient was discharged home with home health. * 01/19/17 to 01/26/17 secondary to UTI, anemia. Subdural hematoma noted. Neurosurgery, Dr. Taveras consulted, nonsurgical management recommended. Patient was discharged to [facility]. * 01/06/17 to 01/16/17 secondary to hyponatremia. Patient was discharged to [facility]. * 11/29/16 ED visit secondary to UTI * 11/24/16 ED visit for evaluation of abdominal pain * 10/15/16 to 10/19/16 secondary multiple complaints. She was found with elevated troponin, cardiology consulted. Cardio workup completed, Alise nuc normal, Eco with normal EF. Patient with complaints of abdominal pain, GI was consulted. Patient underwent ERCP with sphincterotomy and biliary dilatation brushing and biopsy. Pathology negative for malignancy. Patient was discharged home with home health. Patient seen in her room. She was resting in bed in no acute distress. Patient 's primary language is a Samoan, consultation conducted in Samoan at pt's request as both patient and clinician are fluent in Samoan. Patient alert and oriented x self, situation. Frequently confused, easily reoriented. Patient endorsing epigastric pain, worsened with movement. Denies shortness of breath, nausea/vomiting. Endorsing feeling very retired. Appetite reported as fair. Obtain patient's past medical history and psychosocial history. Reviewed multiple prior hospitalizations, clinical course and current medical management. Patient with intermittent confusion, however, verbal and able to communicate needs. She reports that no advance directives have been completed. Patient is a , one adult daughter with Down syndrome. Patient wishing to designate her niece Krystin as primary healthcare surrogate, sarah Meadows as alternate surrogate. Telephone conversation with patient's niece Krystin. Medical update provided. Patient tells me that her goal is to return home to live with her daughter Elle. Shared concerns with patient/niece of her progressive decline and multiple recent hospitalizations -not likely to return to independent living given increased needs with worsening physical deconditioning. Patient and family wishing to return to half-way facility once medically clear, open to ongoing goals of care conversation. . Function/Cognitive Trajectory Patient with multiple acute hospitalizations since October 2016. At half-way facility since 03/07/17. Multiple falls, ambulating with walker. Intermittently confused, history of dementia. . Review of Systems ROS Limitations: Refused Constitutional: COMPLAINS OF: Fatigue, Weight loss, Change in appetite, Pain, DENIES: Fever Endocrine: DENIES: Heat/cold intolerance Eyes: DENIES: Eye inflammation, Eye pain Ears, nose, mouth, throat: DENIES: Hearing loss, Nasal discharge, Oral lesions , Running Nose, Epistaxis Respiratory: DENIES: Cough, Wheezing, Sputum production Cardiovascular: DENIES: Chest pain, Dyspnea on Exertion, Lower Extremity Edema Gastrointestinal: COMPLAINS OF: Abdominal pain, Nausea, Difficulty Swallowing, DENIES: Diarrhea, Vomiting Genitourinary: COMPLAINS OF: Urinary frequency Musculoskeletal: DENIES: Joint pain Integumentary: DENIES: Pruritus, Rash Hematologic/Lymphatics: COMPLAINS OF: Bruising Immunologic/Allergic: DENIES: Eczema Neurologic: COMPLAINS OF: Tremor, Poor Balance, DENIES: Localized weakness, Seizures Psychiatric: COMPLAINS OF: Anxiety, Confusion, DENIES: Agitation Past Family Social History Coded Allergies: ciprofloxacin (Verified Allergy, Severe, RASH, VOMITING, 02/14/17) Past Medical History Alzheimer's dementia Diabetes mellitus Hypertension Hyperlipidemia Subdural hematoma SVT H. pylori gastritis/peptic ulcer . Past Surgical History Appendectomy Cholecystectomy Breast reduction . Reported Medications Novolog Inj (Insulin Aspart) 1,000 Unit/10 Ml Vial 1-9 Units SQ ACHS Max dose at bedtime:( )units; sugars less than 70,(0)units; sugars 150-199,(1) unit; sugars 200-249,(3) units; sugars 250-299,(5) units; sugars 300-349,(7) units; sugars greater than 349,(9) units Maalox Advanced Maximum Strength (Calcium Carbonate-Simethicone) 1,000-60 Mg Chew 1 Tab CHEW ACHS PRN 30 Days Pantoprazole (Pantoprazole Sodium) 40 Mg Tab 40 Mg PO DAILY Tapazole (Methimazole) 5 Mg Tab 5 Mg PO Q8HR 30 Days Senna-Lax (Sennosides) 8.6 Mg Tab 17.2 Mg PO Q12H PRN [Lactulose Liq] 30 ML Syrp 30 Ml PO DAILY PRN Metoprolol Tartrate 25 Mg Tab 25 Mg PO Q12HR Walker/Adult/Folding (Device) 1 Mis Mis Ea .ROUTE DIRECTED PRN Norvasc (Amlodipine Besylate) 5 Mg Tab 5 Mg PO DAILY 30 Days . Current Medications Medications (Trade) Dose Ordered Sig/Jordan Route Start Time Stop Time Status Last Admin (Tylenol) 650 mg Q4H PRN PO 03/09/17 17:00 (Zofran Inj) 4 mg Q6H PRN IVP 03/09/17 17:00 (Reglan Inj) 5 mg Q6H PRN IV PUSH 03/09/17 17:00 (Tylenol) 650 mg Q6H PRN PO 03/09/17 17:00 (Percocet 5-325 Mg) 1 tab Q6H PRN PO 03/09/17 17:00 (Percocet 10-325 Mg) 1 tab Q6H PRN PO 03/09/17 17:00 (Morphine Inj) 2 mg Q3H PRN IV PUSH 03/09/17 17:00 (Morphine Inj) 4 mg Q3H PRN IV PUSH 03/09/17 17:00 (Morphine Inj) 4 mg Q1H PRN IV PUSH 03/09/17 17:00 (Morphine Inj) 4 mg Q3H PRN IV PUSH 03/09/17 17:00 (Narcan Inj) 0.4 mg UNSCH PRN IV PUSH 03/09/17 17:00 (Lara-Colace) 1 tab BID PO 03/09/17 21:00 (Milk Of Magnesia Liq) 30 ml Q12H PRN PO 03/09/17 17:00 (Senokot) 17.2 mg Q12H PRN PO 03/09/17 17:00 (Dulcolax Supp) 10 mg DAILY PRN RECTAL 03/09/17 17:00 (Lactulose Liq) 30 ml DAILY PRN PO 03/09/17 17:00 (NS Flush) 2 ml UNSCH PRN IV FLUSH 03/09/17 17:15 (NS Flush) 2 ml BID IV FLUSH 03/09/17 21:00 03/09/17 20:37 Diltiazem HCl 125 mg/Sodium Chloride 125 ml @ 5 mls/hr TITRATE PRN IV 03/09/17 17:15 (Lopressor) 25 mg Q12HR PO 03/09/17 21:00 03/10/17 12:03 (Protonix) 40 mg DAILY PO 03/10/17 09:00 Sodium Chloride 1,000 ml @ 42 mls/hr [id number] IV 03/10/17 09:00 03/10/17 12:03 Family History Patient has had daughter with Down syndrome. . Substance Use Tobacco: Denies. Alcohol: Denies. Prescription med abuse: Denies. Illicits: Denies. . Psychosocial History Patient originally from [facility]. Moved to [place] 15 years ago. Patient is , 5 years ago. Patient has an adult daughter, Elle who is 47 years old with Down syndrome. 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 . Spiritual/Cultural Factors Zoroastrian luisa. . Living Will: Never completed Health Care Surrogate: Copy in medical record Date completed: 03/10/2017. Health Care Surrogate(s): Patient has designated her niece Krystin Matthew as primary healthcare surrogate, alternate surrogate is sarah Matthew. . Today's verbally stated goals: No code. DNR/DNI. Patient and family electing to maximize medical management, wishing to DC to half-way facility for physical straightening. . Family/friends goals: Family supportive of patient's wishes. . Ethical and Legal Issues No ethical legal issues identified. . Physical Exam Vital Signs Date Time Temp Pulse Resp B/P (MAP) Pulse Ox O2 Delivery O2 Flow Rate FiO2 03/10/17 13:08 86 03/10/17 13:01 98.1 103 17 150/64 (92) 100 03/10/17 12:00 98 03/10/17 11:00 105 03/10/17 10:00 114 03/10/17 09:00 124 03/10/17 08:30 105 19 156/68 (97) 100 03/10/17 08:00 102 03/10/17 07:00 107 03/10/17 06:00 104 03/10/17 05:00 108 03/10/17 04:27 98 114/51 03/10/17 04:18 98.6 99 18 114/51 (72) 95 03/10/17 04:00 83 03/10/17 03:00 96 03/10/17 02:19 93 129/53 03/10/17 02:00 93 03/10/17 01:00 105 03/10/17 00:02 98.7 99 18 117/47 (70) 96 03/10/17 00:00 102 03/09/17 23:00 104 03/09/17 22:00 116 03/09/17 21:00 104 03/09/17 20:00 98.7 115 18 129/57 (81) 99 03/09/17 20:00 103 03/09/17 18:59 03/09/17 17:45 107 22 133/60 (84) 99 Room Air 03/09/17 17:38 98 21 03/09/17 17:30 113 17 159/65 (96) 99 Room Air 03/09/17 17:17 123 155/70 03/09/17 16:30 126 25 155/70 (98) 98 Room Air 03/09/17 15:00 98.9 150 24 129/93 (105) 99 Room Air Exam CONSTITUTIONAL/GENERAL: This is an elderly, cachectic female resting in bed in no acute distress. Patient appears younger than stated age. TUBES/LINES/DRAINS: PIV's. SKIN: No jaundice, rashes, or lesions. Ecchymoses on upper extremities. No wounds seen anteriorly. Skin temperature appropriate. Not diaphoretic. HEAD: Atraumatic. Normocephalic. EYES: Pupils equal and round and reactive. Extraocular motions intact. No scleral icterus. No injection or drainage. ENT: Hearing grossly normal. Nose without bleeding or purulent drainage. Moist oral mucosa. NECK: Trachea midline. Supple, nontender. CARDIOVASCULAR: Irregular rate and rhythm without murmurs, gallops, or rubs. No JVD. Peripheral pulses symmetric. RESPIRATORY/CHEST: Symmetric, unlabored respirations. Clear to auscultation. Breath sounds equal bilaterally. No wheezes, rales, or rhonchi. GASTROINTESTINAL: Abdomen soft, non-tender, nondistended. No guarding. Bowel sounds present. GENITOURINARY: Without palpable bladder distension. MUSCULOSKELETAL: Extremities without clubbing, cyanosis, or edema. Muscular atrophy to all 4 extremities. NEUROLOGICAL: Awake and alert x self and situation. Intermittently confused, easily reoriented. Follows commands. Moves all extremities. Tremors to bilateral upper extremities, right more than left. PSYCHIATRIC: Pleasant, cooperative. . Diagnostic Tests Laboratory Laboratory Tests Test 03/09/17 15:22 03/09/17 16:20 03/10/17 02:25 03/10/17 06:09 White Blood Count 16.8 TH/MM3 (4.0-11.0) 14.5 TH/MM3 (4.0-11.0) Red Blood Count 3.75 MIL/MM3 (4.00-5.30) 3.20 MIL/MM3 (4.00-5.30) Hemoglobin 11.7 GM/DL (11.6-15.3) 9.9 GM/DL (11.6-15.3) Hematocrit 35.6 % (35.0-46.0) 30.5 % (35.0-46.0) Mean Corpuscular Volume 94.9 FL (80.0-100.0) 95.2 FL (80.0-100.0) Mean Corpuscular Hemoglobin 31.3 PG (27.0-34.0) 31.0 PG (27.0-34.0) Mean Corpuscular Hemoglobin Concent 32.9 % (32.0-36.0) 32.6 % (32.0-36.0) Red Cell Distribution Width 14.9 % (11.6-17.2) 15.1 % (11.6-17.2) Platelet Count 366 TH/MM3 (150-450) 319 TH/MM3 (150-450) Mean Platelet Volume 8.6 FL (7.0-11.0) 8.4 FL (7.0-11.0) Neutrophils (%) (Auto) 81.8 % (16.0-70.0) 82.8 % (16.0-70.0) Lymphocytes (%) (Auto) 8.7 % (9.0-44.0) 9.2 % (9.0-44.0) Monocytes (%) (Auto) 9.3 % (0.0-8.0) 7.8 % (0.0-8.0) Eosinophils (%) (Auto) 0.1 % (0.0-4.0) 0.0 % (0.0-4.0) Basophils (%) (Auto) 0.1 % (0.0-2.0) 0.2 % (0.0-2.0) Neutrophils # (Auto) 13.8 TH/MM3 (1.8-7.7) 12.0 TH/MM3 (1.8-7.7) Lymphocytes # (Auto) 1.5 TH/MM3 (1.0-4.8) 1.3 TH/MM3 (1.0-4.8) Monocytes # (Auto) 1.6 TH/MM3 (0-0.9) 1.1 TH/MM3 (0-0.9) Eosinophils # (Auto) 0.0 TH/MM3 (0-0.4) 0.0 TH/MM3 (0-0.4) Basophils # (Auto) 0.0 TH/MM3 (0-0.2) 0.0 TH/MM3 (0-0.2) CBC Comment DIFF FINAL DIFF FINAL Differential Comment Prothrombin Time 13.5 SEC (9.8-11.6) Prothromb Time International Ratio 1.3 RATIO Activated Partial Thromboplast Time 21.8 SEC (24.3-30.1) Blood Urea Nitrogen 29 MG/DL (7-18) 25 MG/DL (7-18) Creatinine 0.93 MG/DL (0.50-1.00) 0.47 MG/DL (0.50-1.00) Random Glucose 167 MG/DL (74-106) 115 MG/DL (74-106) Total Protein 8.2 GM/DL (6.4-8.2) 6.6 GM/DL (6.4-8.2) Albumin 2.3 GM/DL (3.4-5.0) 1.9 GM/DL (3.4-5.0) Calcium Level 9.0 MG/DL (8.5-10.1) 8.1 MG/DL (8.5-10.1) Alkaline Phosphatase 117 U/L (45-117) 88 U/L (45-117) Aspartate Amino Transf (AST/SGOT) 23 U/L (15-37) 21 U/L (15-37) Alanine Aminotransferase (ALT/SGPT) 19 U/L (10-53) 14 U/L (10-53) Total Bilirubin 0.5 MG/DL (0.2-1.0) 0.4 MG/DL (0.2-1.0) Sodium Level 152 MEQ/L (136-145) 161 MEQ/L (136-145) Potassium Level 2.9 MEQ/L (3.5-5.1) 3.5 MEQ/L (3.5-5.1) Chloride Level 109 MEQ/L (98-107) 123 MEQ/L (98-107) Carbon Dioxide Level 28.8 MEQ/L (21.0-32.0) 25.2 MEQ/L (21.0-32.0) Anion Gap 14 MEQ/L (5-15) 13 MEQ/L (5-15) Estimat Glomerular Filtration Rate 58 ML/MIN (>89) 127 ML/MIN (>89) Lactic Acid Level 1.9 mmol/L (0.4-2.0) Total Creatine Kinase 38 U/L (26-192) 30 U/L (26-192) Troponin I 0.11 NG/ML (0.02-0.05) 0.10 NG/ML (0.02-0.05) Lipase 109 U/L (73-393) Thyroid Stimulating Hormone 3rd Gen LESS THAN 0.005 uIU/ML LESS THAN 0.005 uIU/ML Urine Color YELLOW (YELLW/STRAW) Urine Turbidity CLEAR (CLEAR) Urine pH 6.0 (5.0-8.5) Urine Specific [place] 1.015 (1.002-1.035) Urine Protein 30 mg/dL (NEG-TRACE) Urine Glucose (UA) NEG mg/dL (NEG) Urine Ketones 40 mg/dL (NEG) Urine Occult Blood NEG (NEG) Urine Nitrite NEG (NEG) Urine Bilirubin NEG (NEG) Urine Urobilinogen LESS THAN 2.0 MG/DL (LESS Urine Leukocyte Esterase NEG (NEG) Urine WBC LESS THAN 1 /hpf (0-5) Urine Amorphous Sediment RARE Microscopic Urinalysis Comment CULT NOT INDICATED Phosphorus Level 2.8 MG/DL (2.5-4.9) Magnesium Level 1.7 MG/DL (1.5-2.5) Free Thyroxine 4.39 NG/DL (0.76-1.46) Test 03/10/17 08:52 03/10/17 12:22 03/10/17 13:43 Blood Urea Nitrogen 26 MG/DL (7-18) 23 MG/DL (7-18) Creatinine 0.44 MG/DL (0.50-1.00) 0.42 MG/DL (0.50-1.00) Random Glucose 122 MG/DL (74-106) 123 MG/DL (74-106) Calcium Level 8.5 MG/DL (8.5-10.1) 8.4 MG/DL (8.5-10.1) Sodium Level 158 MEQ/L (136-145) 161 MEQ/L (136-145) Potassium Level 3.1 MEQ/L (3.5-5.1) 3.1 MEQ/L (3.5-5.1) Chloride Level 121 MEQ/L (98-107) 123 MEQ/L (98-107) Carbon Dioxide Level 23.6 MEQ/L (21.0-32.0) 22.3 MEQ/L (21.0-32.0) Anion Gap 13 MEQ/L (5-15) 16 MEQ/L (5-15) Estimat Glomerular Filtration Rate 137 ML/MIN (>89) 145 ML/MIN (>89) Result Diagram: 03/10/17 0609 03/10/17 1222 Microbiology Microbiology Date/Time Source Procedure Growth Status 03/09/17 15:25 Blood Peripheral Aerobic Blood Culture - Preliminary NO GROWTH IN 1 DAY Resulted 03/09/17 15:25 Blood Peripheral Anaerobic Blood Culture - Preliminary NO GROWTH IN 1 DAY Resulted 03/09/17 15:20 Blood Peripheral Aerobic Blood Culture - Preliminary NO GROWTH IN 1 DAY Resulted 03/09/17 15:20 Blood Peripheral Anaerobic Blood Culture - Preliminary NO GROWTH IN 1 DAY Resulted Imaging Last Impressions Head CT 03/09/171457 Signed Impressions: Service Date/Time: March 15:44 - CONCLUSION: 1. Stable subdural collection along the left frontoparietal lobe which has both subacute and acute components. No midline shift is noted. 2. Diffuse cerebral atrophy. Abdiel Lerma MD Chest X-Ray 03/09/171457 Signed Impressions: Service Date/Time: March 15:05 - CONCLUSION: 1. Cardiomegaly. No acute abnormality. Arvin Moreno MD Patient/Family Conference Present at Family Conference: Patient and niece Krystin Matthew. Family Conference Time (mins): 48 Family Conference Location: Bedside, Telephone Issues Discussed: * Palliative care role, purpose, approach * Additional medical, psychosocial, and spiritual history * Patients general health, functional status, and cognitive changes in the months leading up to the current hospitalization * Patient/family understanding of the current medical problems -multiple recent acute hospitalizations, progressive decline, profound debility. * Patient/family understanding of prognosis -overall prognosis is poor * Patients goals of care as best understood from advance directives and/or conversations and/or values * Current medical treatment options and benefits/burdens of those options * Questions answered to the best of my ability * Palliative care contact information provided * Risks, benefits and limitations of CPR, intubation and mechanical ventilation . Assessment and Plan Disease Oriented Problem List: (1) Atrial fibrillation with RVR (2) Electrolyte abnormality (3) Nausea (4) Subdural hematoma (5) Cachexia (6) Physical deconditioning Symptom Scale: (1) Debility 0-10 Scale: Unable to quantify Comment: Progressive. (2) Abdominal pain 0-10 Scale: Unable to quantify Comment: Unclear etiology. Pertinent Non-Medical Issues Psychosocial: Patient originally from [facility]. Moved to [place] 15 years ago. Patient is , 5 years ago. Patient has an adult daughter , Elle who is 47 years old with Down syndrome. 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 Spiritual: Zoroastrian luisa. Legal: Advance directives completed. Ethical issues impacting care: No ethical issues identified. . Important Contacts Niece/MIL Matthew , . . Prognosis Mrs. Matthew is an 81 female with a medical history of Alzheimer's dementia, diabetes mellitus, hypertension and acute-subacute subdural hematoma. Patient presented to emergency room via EMS on 03/09/17 from half-way facility for evaluation of near syncopal episode and nausea vomiting. Patient with multiple recent acute hospitalizations, this is patient's seventh acute hospitalization in the past 4 months. Patient in and out half-way facilities, reporting progressive physical deconditioning, weight loss. Patient is cachectic, frail. Patient at high risk for further complications, continue decline and . . Code Status: No Code Plan * CODE STATUS: No code. DNR/DNI. This has been confirmed with patient's niece/ [facility] Krystin. Community DNR left at bedside for completion. Will follow-up. * HEALTHCARE DECISION-MAKING: Patient with baseline Alzheimer's dementia. Alert and oriented x self and situation, intermittent confusion -easily reoriented. Mostly coherent conversation conducted in her [place] language Samoan. Patient with a fair understanding of her progressive decline. Has designated her niece Krystin Matthew as primary healthcare surrogate decision maker, alternate surrogate is step son Abdiel Matthew. Given patient's intermittent confusion, palliative care recommends shared decision-making with HCS/niece Krystin as well as providing patient with Samoan interpreting services -Patient communicates best in her [place] language. * GOALS OF CARE: Patient and niece/HCS Krystin electing to maximize medical management short of NO code. Patient and family wishing to discharge to half-way facility for physical straightening. Shared concerns of patient 's progressive decline as evidenced by multiple acute hospitalizations within the past 4 months, multiple comorbidities, cachexia/failure to thrive and ongoing acute events. Patient's ultimate goal is to return home for independent living, shared concerns given her progressive decline and higher level of needs. Patient resides with adult daughter who has special needs secondary to Down syndrome. Reviewed with niece that patient will likely require long-term placement. Patient and family receptive to ongoing goals of care conversation. * SYMPTOMS: =Debility: Progressive. Patient with multiple acute hospitalizations in the past 4 months. Has been receiving rehabilitation at half-way facility. Patient is cachectic, profound physical deconditioning with history of multiple falls. Likely to continue to worsen. Patient and family requesting discharge to half-way facility for physical straightening. = Abdominal pain: Unclear etiology. Patient with similar complaints on prior hospitalizations. GI has been previously consulted in February, -No acute findings. * Case discussed with case management. Notified family requesting SNF for physical straightening. * Palliative care contact information has been provided to patient and leatha Mcclelland. * Palliative care will continue to follow-up for further clarifications of goals of care as patient's clinical course continues to evolve. . Time Spent Total Floor Time (mins): 74 (Total time to include review and summarization of available medical records to include a multiple prior hospitalizations, physical exam, goals of care conversation with patient and leatha Mcclelland, assistance with completion of advance directives. ) >50% Counseling/Coord of Care: Yes Thank you for the opportunity to participate in the care of Ms. Matthew. Attestation To help prompt me to consider important information that might be impacting today's encounter and assessment, information from prior notes written by myself or my colleagues may have been "brought forward" into today's note. My signature on this note, however, is an attestation that I personally performed the exam, history, and/or decision-making noted today, and, unless otherwise indicated, the interactions with patient, family, and staff as well as the review of records all occurred today. I also attest that the listed assessment and stated plan reflect my best clinical judgment today based on the combination of historical information, prior notes, and today's exam/ interactions. When time spent is documented, it refers only to time spent today by the signer, or if indicated, combined time spent today by collaborating physician/nurse practitioner. Amirah Martinez Mar 10, 2017 15:48
[2017-03-10] MEDS ORDERED: ZOFR4TAB PO (16:44)
[2017-03-10] MEDS: 1/2 NS + KCL 20 MEQ INJ 1,000 ML IV SCH (17:15)
[2017-03-10 17:24] LABS: HEMOGLOBIN A1C 5.5 % (4.3-6.0)
[2017-03-10 17:39] LABS: BICARBONATE 28.3 MEQ/L (21.0-32.0); CALCIUM 8.2 MG/DL (8.5-10.1); CREATININE 0.38 MG/DL (0.50-1.00)
[2017-03-10] MEDS: amLODIPine BESYLATE 5 MG TAB PO SCH (18:00)
[2017-03-10] MEDS: METHIMAZOLE 5 MG TAB PO SCH (20:24)
--- NOTE | 2017-03-10 23:02 | EKG ---
Date Performed: 03/09/2017 Time Performed: 15:30:06 PTAGE: 81 years EKG: ATRIAL FIBRILLATION WITH RAPID VENTRICULAR RESPONSE SEPTAL MYOCARDIAL INFARCTION MODERATE T -WAVE ABNORMALITY, CONSIDER LATERAL ISCHEMIA MODERATE T-WAVE ABNORMALITY, CONSIDER INFERIOR ISCHEMIA ABNORMAL ECG PREVIOUS TRACING : 03/04/2017 10.01 Compared to the previous tracing afib with RVR is new DOCTOR: Hal Singh Interpretating Date/Time 03/10/2017 23:01:17
[2017-03-11] VITALS (22 sets, daily range): BP systolic 145–184; BP diastolic 65–91; PULSE 65–125; RESP 18–20; TEMP 97.4–99.2; O2SAT 98–100
[2017-03-11 00:39] LABS: BICARBONATE 30.6 MEQ/L (21.0-32.0); CALCIUM 8.3 MG/DL (8.5-10.1); CREATININE 0.36 MG/DL (0.50-1.00)
[2017-03-11] MEDS: METHIMAZOLE 5 MG TAB PO SCH ×3 (05:30→22:18)
[2017-03-11 06:33] LABS: BICARBONATE 29.5 MEQ/L (21.0-32.0); CALCIUM 8.8 MG/DL (8.5-10.1); CREATININE 0.34 MG/DL (0.50-1.00)
[2017-03-11] MEDS: SODIUM CHLORIDE 0.9% FLUSH 10 ML FLUSH IV FLUSH SCH ×2 (08:20→22:18)
[2017-03-11] MEDS: DOCUSATE SODIUM 50 MG/SENNA 8.6 MG TAB PO SCH ×2 (08:26→21:00)
[2017-03-11] MEDS: METOPROLOL TARTRATE 25 MG TAB PO SCH ×2 (08:26→22:18)
[2017-03-11] MEDS: amLODIPine BESYLATE 5 MG TAB PO SCH (08:26)
[2017-03-11] MEDS: PANTOPRAZOLE SOD 40 MG DELAYED RELEASE TAB PO SCH (08:26)
[2017-03-11] MEDS ORDERED: POTASSIUM CHLORIDE INJ 20 MEQ in SODIUM CHLOR 0.45% 1000 ML INJ 1,000 ML IV SCH (09:00)
--- NOTE | 2017-03-11 17:25 | MB ---
cc: RAVINDRA JIMENEZ M.D. DATE OF CONSULTATION: 03/11/17 REASON FOR CONSULTATION Subdural hematoma. HISTORY OF PRESENT ILLNESS Ms. Matthew is a pleasant 81-year-old female who has a known history of subdural hematoma involving the left frontoparietal area. She was admitted last month and was evaluated by Neurosurgery and nonoperative management was recommended. She also has a history of right subdural hygroma as well as normal pressure hydrocephalus. The patient is now admitted after a syncopal episode where she passed out. PAST MEDICAL HISTORY 1. History of subdural hematoma. 2. History of SVT. 3. Diabetes. 4. Normal pressure hydrocephalus. 5. A-fib with RVR, a possibility. She however has been in normal sinus rhythm. MEDICATIONS Current medications are - 1. Ativan 0.5 mg p.r.n. 2. Tapazole 5 mg q.8 hours. 3. Norvasc 5 mg daily. 4. Protonix 40 mg daily. 5. Colace one tablet b.i.d. 6. Lopressor 25 mg b.i.d. 7. Diltiazem p.r.n. NEUROLOGIC EXAMINATION VITAL SIGNS: Blood pressure is 147/74, pulse 109, respiratory rate is 18, temperature 99 degrees. H Higher cortical function: Alert. She follows commands. Cranial nerves are intact. Motor exam: She is generally weak but no focal deficits are seen. IMAGING CT of the brain shows stable subdural collection in left frontoparietal lobe with both subacute and acute components. No mass effect. No midline shift is seen. IMPRESSION Left subdural hematoma which is stable. RECOMMENDATIONS 1. Continue conservative management. 2. Syncope. We will check EEG, also echocardiogram, carotid ultrasound, orthostatic blood pressure and pulse. MD VLADIMIR Cruz/MARIANNE /3:28 PM /4:57 PM
--- NOTE | 2017-03-11 17:36 | HHI.PR ---
Subjective Remarks Pt recognizes me from a month ago when I took care of her for her subdural hematoma prior to discharge. She asks me if she is going to today, anxiously. I reassured her that I don't think that she will anytime soon. Objective Vitals Vital Signs Date Time Temp Pulse Resp B/P (MAP) Pulse Ox O2 Delivery O2 Flow Rate FiO2 03/11/17 16:01 105 145/73 (97) 151/73 (99) 03/11/17 15:34 99.2 109 18 147/74 (98) 100 03/11/17 11:44 98.5 96 18 157/73 (101) 98 03/11/17 08:12 97.4 125 18 184/91 (122) 100 03/11/17 07:21 16 03/11/17 07:00 98 03/11/17 06:08 102 03/11/17 05:54 115 03/11/17 05:53 117 03/11/17 04:10 101 03/11/17 03:50 90 03/11/17 03:00 90 03/11/17 02:00 84 03/11/17 01:00 78 03/11/17 00:03 82 03/11/17 00:00 82 03/10/17 23:00 82 03/10/17 22:00 96 03/10/17 21:44 16 03/10/17 21:00 104 03/10/17 20:13 97.5 93 16 166/72 (103) 99 03/10/17 20:07 100 03/10/17 20:00 78 03/10/17 19:00 90 03/10/17 18:00 96 I/O 03/10/17 03/10/17 03/10/17 03/11/17 03/11/17 03/11/17 07:00 15:00 23:00 07:00 15:00 23:00 Intake Total 420 ml 540 ml 520 ml Output Total 251 ml Balance 169 ml 540 ml 520 ml Intake Oral 20 ml 240 ml 120 ml IV Total 400 ml 300 ml 400 ml Output Urine Total 250 ml Stool Total 1 ml # Voids 2 6 2 Result Diagram: 03/10/17 1343 03/11/17 0450 Objective Remarks GENERAL: Thin woman, a little confused, anxious SKIN: Warm and dry. HEAD: Normocephalic. EYES: No scleral icterus. No injection or drainage. NECK: Supple, trachea midline. No JVD or lymphadenopathy. CARDIOVASCULAR: Irregularly irregular, 2/6 SHELIA RESPIRATORY: Breath sounds equal bilaterally. No accessory muscle use. GASTROINTESTINAL: Abdomen soft, non-tender, nondistended. MUSCULOSKELETAL: No cyanosis, or edema. BACK: Nontender without obvious deformity. No CVA tenderness. EXTREMITIES: no edema, no trauma A/P Problem List: (1) Atrial fibrillation with RVR ICD Code: I48.91 - Unspecified atrial fibrillation Status: Acute (2) Subdural hematoma ICD Code: I62.00 - Nontraumatic subdural hemorrhage, unspecified Status: Acute (3) Hypernatremia ICD Code: E87.0 - Hyperosmolality and hypernatremia (4) Hypokalemia ICD Code: E87.6 - Hypokalemia Assessment and Plan [facility] Appreciate Cardiology consult Continue Telemetry Hypernatremia/Hypokalemia Likley dehydration IVF resuscitation with electrolyte replacement Recheck in the a.m. 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
--- NOTE | 2017-03-11 18:24 | ECHRPT ---
Indication: HEART FAILURE CONCLUSIONS The left ventricular systolic function is hyperdynamic with an estimated ejection fraction in the ra nge of 65- 70%. Wall thickness is normal. No regional wall motion abnormalities are present. Aortic valve sclerosis is present. Trace aortic valve regurgitation. There is trace tricuspid valve regurgitation. There is estimated moderate pulmonary hypertension present (range 50-60 mmHg). Mild pulmonary valve regurgitation. BP: 143 / 87 HR: 98 Rhythm: Sinus Technical Quality:Good FINDINGS LEFT VENTRICLE The left ventricular systolic function is hyperdynamic with an estimated ejection fraction in the ra nge of 65- 70%. Wall thickness is normal. No regional wall motion abnormalities are present. RIGHT VENTRICLE Normal right ventricular size and systolic function. LEFT ATRIUM The left atrial size is normal. RIGHT ATRIUM The right atrial size is normal. ATRIAL SEPTUM Normal atrial septal thickness without atrial level shunting by limited color doppler interrogation. AORTA The aortic root and proximal ascending aorta are normal in size on limited imaging. MITRAL VALVE Structurally normal mitral valve. No mitral valve stenosis or regurgitation. AORTIC VALVE Trileaflet aortic valve. Aortic valve sclerosis is present. Trace aortic valve regurgitation. TRICUSPID VALVE Structurally normal tricuspid valve. There is trace tricuspid valve regurgitation. There is estimated moderate pulmonary hypertension present (range 50-60 mmHg). PULMONARY VALVE Mild pulmonary valve regurgitation. VESSELS The inferior vena cava is normal in size. PERICARDIUM No pericardial effusion. Tony Valenzuela MD, FACC, [facility] (Electronically Signed) Final Date:11 March 2017 18:22
[2017-03-11 19:17] LABS: BICARBONATE 29.6 MEQ/L (21.0-32.0); CALCIUM 9.1 MG/DL (8.5-10.1); CREATININE 0.49 MG/DL (0.50-1.00)
--- NOTE | 2017-03-11 21:10 | RADRPT ---
EXAM DATE/TIME: 03/11/2017 19:37 [facility] COMPARISON: No previous studies available for comparison. INDICATIONS : Syncope. MEDICAL HISTORY : Hypercholesterolemia. Hypertension. Ulcers. CVA. SURGICAL HISTORY : Appendectomy. Cholecystectomy. Tubal ligation. ENCOUNTER: Initial ACUITY: 1 day PAIN SCORE: 0/10 LOCATION: Bilateral neck PEAK SYSTOLIC VELOCITIES (cm/sec): ICA/CCA RATIO: Right: 1.3 Left: 1.6 ICA: Right: 123.7 Left: 139.1 CCA: Right: 96.7 Left: 86.2 Left: 45.9 VERTEBRAL: Right: 91.4 antegrade Left: 67.7 antegrade Elevated flow velocities and ICA/CCA ratios have been found to correlate with increased degrees of vessel stenosis, calculated as percentage of diameter relative to a normal segment of distal ICA/CCA FINDINGS: Mild heterogeneous plaque is identified in both carotid bifurcations. RIGHT CAROTID: No significant stenosis is visualized. The waveforms are within normal limits. LEFT CAROTID: No significant stenosis is visualized. The waveforms are within normal limits. VERTEBRAL ARTERIES: Antegrade flow is seen in both vertebral arteries. MISCELLANEOUS: None. CONCLUSION: 1. Mild bilateral carotid plaque 2. No evidence of hemodynamically significant stenosis. 3. Antegrade flow both vertebral arteries. Killian Lo MD on March 11, 2017 at 21:06 Board Certified Radiologist. This report was verified electronically.
[2017-03-11] MEDS: LORazepam 2 MG/ML VIAL IV PUSH PRN (22:18)
[2017-03-11 23:04] LABS: BICARBONATE 26.7 MEQ/L (21.0-32.0); CALCIUM 8.7 MG/DL (8.5-10.1); CREATININE 0.43 MG/DL (0.50-1.00)
[2017-03-12] VITALS (14 sets, daily range): BP systolic 150–172; BP diastolic 67–87; PULSE 70–137; RESP 18–28; TEMP 97.5–99; O2SAT 97–100
[2017-03-12] MEDS: 1/2 NS + KCL 20 MEQ INJ 1,000 ML IV SCH ×2 (03:30→09:26)
[2017-03-12] MEDS: METHIMAZOLE 5 MG TAB PO SCH ×3 (05:53→23:17)
[2017-03-12] MEDS ORDERED: DEXTROSE 50% IN WATER 50 ML SYRINGE ONE (06:59)
[2017-03-12] MEDS ORDERED: DEXTROSE 50% IN WATER 50 ML SYRINGE IV PUSH ONE (07:00)
--- NOTE | 2017-03-12 07:29 | RADRPT ---
EXAM DATE/TIME: 03/12/2017 07:04 [facility] COMPARISON: CHEST SINGLE AP, March 09, 2017, 15:05. INDICATIONS : Shortness of breath and chest pain. MEDICAL HISTORY : Hypercholesterolemia. Hypertension. Ulcers. CVA. SURGICAL HISTORY : Appendectomy. Cholecystectomy. Tubal ligation. ENCOUNTER: Initial ACUITY: 1 day PAIN SCORE: Non-responsive. LOCATION: Bilateral chest FINDINGS: A single view of the chest demonstrates the lungs to be symmetrically aerated without evidence of mas s, infiltrate or effusion. Stable cardiomegaly is noted. Osseous structures are intact. CONCLUSION: 1. Stable cardiomegaly. 2. No acute focal pulmonary infiltrate or pulmonary vascular congestion. Abdiel Lerma MD on March 12, 2017 at 7:26 Board Certified Radiologist. This report was verified electronically.
[2017-03-12 07:30] LABS: AUTOMATED NEUTROPHIL # 5.3 TH/MM3 (1.8-7.7); BASOPHIL % 0.3 % (0.0-2.0); EOSINOPHIL # 0.1 TH/MM3 (0-0.4); EOSINOPHIL % 1.2 % (0.0-4.0); HEMATOCRIT 30.4 % (35.0-46.0); LYMPH % 27.7 % (9.0-44.0); LYMPHOCYTE # 2.4 TH/MM3 (1.0-4.8); MEAN CELL VOLUME 95.4 FL (80.0-100.0); MEAN CORPUSCULAR HEMOGLOBIN 31.5 PG (27.0-34.0); MEAN PLATELET VOLUME 8.2 FL (7.0-11.0); MONO % 9.4 % (0.0-8.0); MONOCYTE # 0.8 TH/MM3 (0-0.9); NEUT % 61.4 % (16.0-70.0); PLATELET COUNT 295 TH/MM3 (150-450); RED BLOOD COUNT 3.18 MIL/MM3 (4.00-5.30); RED CELL DISTRIBUTION WIDTH 15.3 % (11.6-17.2); WHITE BLOOD COUNT 8.7 TH/MM3 (4.0-11.0)
--- NOTE | 2017-03-12 07:34 | HHI.PR ---
Addendum to Inpatient Note Addendum Reason: Additional Documentation Additional Information Received call from bedside RN for change in mental status and inability to verbalize. Patient seen and examined, stroke alert called. Does have a history of subdural bleed, neurology already following. Called placed to Dr. Strickland and awaiting call back. Blood sugar 68 at bedside, D50 given. ABG ordered and pending. STAT CXR and EKG ordered. EKG showing sinus tachycardia, HR 132, probably anxiety related. Labs pending, NA 165, symptoms could be hypernatremic related. Continue cardiac telemetry. Dr. Nichols called and updated about patient status. Will await Head CT results and transfer to unit for closer monitoring. Camelia Caldera Mar 12, 2017 07:34
[2017-03-12 07:46] LABS: INTERNATIONAL NORMALIZED RATIO 1.4 RATIO; PROTHROMBIN TIME - PATIENT 13.7 SEC (9.8-11.6)
[2017-03-12 07:52] LABS: ALBUMIN 1.9 GM/DL (3.4-5.0); ALT (GPT) 11 U/L (10-53); AST (GOT) 27 U/L (15-37); BICARBONATE 28.9 MEQ/L (21.0-32.0); BLOOD UREA NITROGEN 25 MG/DL (7-18); CALCIUM 8.6 MG/DL (8.5-10.1); CHLORIDE 126 MEQ/L (98-107); CREATININE 0.39 MG/DL (0.50-1.00); GLOMERULAR FILTRATION RATE 158 ML/MIN (>89); GLUCOSE,RANDOM 65 MG/DL (74-106)
--- NOTE | 2017-03-12 07:56 | RADRPT ---
EXAM DATE/TIME: 03/12/2017 07:43 [facility] COMPARISON: CT BRAIN W/O CONTRAST, March 09, 2017, 15:44. INDICATIONS : Stroke alert; Left sided facial droop, unable to follow commands. RADIATION DOSE: 34.87 CTDIvol (mGy) ; Patient motion This report was called by Dr. Lerma to Dr. Strickland at 7: 52 AM on 03/12/17. MEDICAL HISTORY : Hypertension. Cardiovascular disease SURGICAL HISTORY : None. ENCOUNTER: Initial ACUITY: 1 day PAIN SCALE: Non-responsive LOCATION: cranial TECHNIQUE: Multiple contiguous axial images were obtained of the head. Using automated exposure control and adj ustment of the mA and/or kV according to patient size, radiation dose was kept as low as reasonably a chievable to obtain optimal diagnostic quality images. DICOM format image data is available electro nically for review and comparison. FINDINGS: There is a stable subdural collection along the left frontoparietal lobe has both subacute and acute components. This measures 11 mm in greatest width. There is no new midline shift or mass effect. Diff use cerebral atrophy is stable. No acute infarct is noted. CONCLUSION: 1. Stable subdural collection along the left frontoparietal lobe which is both subacute and acute com ponents and measures 11 mm in greatest width. 2. Diffuse cerebral atrophy. 3. No acute infarct is noted. Abdiel Lerma MD on March 12, 2017 at 7:48 Board Certified Radiologist. This report was verified electronically.
[2017-03-12 07:59] LABS: ALKALINE PHOSPHATASE 77 U/L (45-117); TOTAL BILIRUBIN ADULT 0.4 MG/DL (0.2-1.0); TOTAL PROTEIN 6.6 GM/DL (6.4-8.2)
[2017-03-12 08:00] LABS: SODIUM (NA) 165 MEQ/L (136-145)
[2017-03-12 08:05] LABS: TROPONIN I 0.15 NG/ML (0.02-0.05)
--- NOTE | 2017-03-12 08:18 | HHI.PR ---
Subjective Remarks This morning between 6:30-7:00am patient was noted to have onset of right facial droop with slurring of speech and weakened right compared to left extremity strength. She says she has a slight frontal headache. Stroke alert was called and she was evaluated by the overnight PA and sent to 1300 ICU. Objective Vitals Vital Signs Date Time Temp Pulse Resp B/P (MAP) Pulse Ox O2 Delivery O2 Flow Rate FiO2 03/12/17 06:33 137 20 161/87 (111) 100 03/11/17 20:48 97.9 65 20 150/65 (93) 98 03/11/17 16:01 105 145/73 (97) 151/73 (99) 03/11/17 15:34 99.2 109 18 147/74 (98) 100 03/11/17 11:44 98.5 96 18 157/73 (101) 98 03/11/17 08:12 97.4 125 18 184/91 (122) 100 I/O 03/11/17 03/11/17 03/11/17 03/12/17 03/12/17 03/12/17 07:00 15:00 23:00 07:00 15:00 23:00 Intake Total 520 ml 0 ml Output Total 325 ml Balance 520 ml -325 ml Intake Oral 120 ml 0 ml IV Total 400 ml Output Urine Total 325 ml # Voids 2 # Bowel Movements 0 Result Diagram: 03/12/17 0703 03/12/17 0703 Objective Remarks GENERAL: Thin woman, acute change, stroke alert SKIN: Warm and dry. HEAD: Normocephalic. EYES: No scleral icterus. No injection or drainage. Pupils equal and reactive NECK: Supple, trachea midline. No JVD or lymphadenopathy. CARDIOVASCULAR: sinus tachycardia, 2/6 SHELIA RESPIRATORY: Breath sounds equal bilaterally. No accessory muscle use. GASTROINTESTINAL: Abdomen soft, non-tender, nondistended. MUSCULOSKELETAL: No cyanosis, or edema. Right side weakness, 3/5 strength upper and lower extremity on the right EXTREMITIES: no edema, no trauma NEURO: Right side facial droop with slurring of speech, right side weakness ( not paralysis, grabbing pillow with both arms), PERRL, cognition seems intact, but she is speaking south korean only when before she would communicate to us in kazakh. A/P Problem List: (1) Atrial fibrillation with RVR ICD Code: I48.91 - Unspecified atrial fibrillation Status: Acute (2) Subdural hematoma ICD Code: I62.00 - Nontraumatic subdural hemorrhage, unspecified Status: Acute (3) Hypernatremia ICD Code: E87.0 - Hyperosmolality and hypernatremia (4) Hypokalemia ICD Code: E87.6 - Hypokalemia Assessment and Plan Stroke Alert Acute onset of right side facial droop, right extremity weakness, slurring of speech CT Head pending, stroke alert work up pending Transferred to [facility] ICU, Dr. Strickland (neurology) is aware No anticoagulation due to history of recurrent subdural hematoma Will monitor for signs of progression or improvement Patient is "No Code" status A Fib with RVR Currently converted and in sinus tachycardia, HR = 110-120 Appreciate Cardiology consult Continue Telemetry Hypernatremia/Hypokalemia Onset seems from dehydration After nearly 2 days of 1/2 NS hydration and K+ replacement, she still has marked hypernatremia Will consult plant operator to assist with electrolyte management Subdural Hematoma Patient with known subdural hematoma onset 2 months ago, recurrent about [address] of brain is pending due to onset of stroke like symptoms Anticoagulation is likely not indicated due to subdural hematoma, but will defer final decision regarding safety of anticoagulation to neurology Type 2 Diabetes SSI with Accuchecks Diabetic Diet GERD Protonix DVT 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
[2017-03-12] MEDS ORDERED: IOHEXOL 350 MG/ML 10 ML VIAL (for RAD DIAG) IVCONTRAST ONE (08:57)
[2017-03-12] MEDS: DOCUSATE SODIUM 50 MG/SENNA 8.6 MG TAB PO SCH ×2 (09:00→21:44)
[2017-03-12] MEDS: METOPROLOL TARTRATE 25 MG TAB PO SCH (09:00)
[2017-03-12] MEDS: SODIUM CHLORIDE 0.9% FLUSH 10 ML FLUSH IV FLUSH SCH ×2 (09:00→21:00)
[2017-03-12] MEDS: PANTOPRAZOLE SOD 40 MG DELAYED RELEASE TAB PO SCH (09:00)
[2017-03-12] MEDS: amLODIPine BESYLATE 5 MG TAB PO SCH (09:00)
--- NOTE | 2017-03-12 09:10 | MB ---
cc: RAVINDRA JIMENEZ MD PHD DATE OF CONSULTATION: 03/12/2017 REASON FOR CONSULTATION: Stroke alert HISTORY OF PRESENT ILLNESS: Ms. Matthew is an 81 year-old woman, known to me, from yesterday's evaluation with a chronic left subdural hematoma. Since my initial evaluation this morning, the patient developed acute onset of right-sided weakness and inability to talk. She was found that way around 6 a.m. and a stroke alert was called. She since has shown improvement, able to talk in her [place] language of [place] but still with deficits according to an geothermal powerplant mechanic. She is starting to move the right side better but still is weak on the right side. NEUROLOGICAL EXAMINATION: VITAL SIGNS: Blood pressure 161/87, pulse 137, respiratory rate 20, temperature 97.9 degrees. Higher cortical functions, alert. Through an geothermal powerplant mechanic she is able to follow some simple commands in [place] but not completely, is able to talk but with fragmented speech. Cranial nerves: There does appear to be some mild weakness of the right facial musculature. Extraocular movements intact. On motor exam, she has a right pronator drift. She has some moderate weakness of the right upper extremity with mild drift. Reflexes symmetric. IMAGING STUDIES: CT of the brain done today reveals stable subdural collection, left frontoparietal area, both acute and subacute components, unchanged from previous study. CT angiogram of the brain reveals no evidence of large vessel occlusion. CTA of the neck is normal. No sign of any significant carotid artery stenosis. LABORATORY DATA: From this morning: White count 8,700, hemoglobin 10, hematocrit 30.4%, platelet count 295,000. PT 13.7, INR 1.4, APTT 22.4. Sodium is 165, potassium 3.2. BUN is 25, creatinine 0.39. GFR is 158, glucose 65. IMPRESSION: Acute onset of aphasia, right-sided weakness, now improving. The differential would include a transient ischemic attack versus focal seizure. The patient is not a candidate for IV TPA because of the subdural hematoma. There is no evidence of any large vessel occlusion for intervention. RECOMMENDATIONS: At the present time, would like to start anticonvulsant medication with Keppra for the possibility of focal seizure. Will proceed with an MRI of the brain as well to rule out any new ischemic change on the let. Will also obtain an EEG. Will also consult neurosurgery regarding the left subdural hematoma. MD VLADIMIR Cruz/LIYA /8:36 AM /8:40 AM
--- NOTE | 2017-03-12 09:22 | RADRPT ---
EXAM DATE/TIME: 03/12/2017 08:22 [facility] COMPARISON: No previous studies available for comparison. INDICATIONS : Aphasia and left sided facial droop. IV CONTRAST: 74 cc Omnipaque 350 (iohexol) IV RADIATION DOSE: 8.96 CTDIvol (mGy) ; Combined studies MEDICAL HISTORY : Hypertension. SURGICAL HISTORY : None. ENCOUNTER: Initial ACUITY: 1 day PAIN SCALE: Non-responsive LOCATION: Bilateral neck Elevated flow velocities and ICA/CCA ratios have been found to correlate with increased degrees of vessel stenosis, calculated as percentage of diameter relative to a normal segment of distal ICA/CCA. TECHNIQUE: Volumetric scanning was performed using a multirow detector CT scanner. The data was post processed with a variety of visualization algorithms including full-volume maximum intensity projection, multip lanar sliding thin-slab reformation, curved-planar reformation, and surface-rendering techniques. Us ing automated exposure control and adjustment of the mA and/or kV according to patient size, radiatio n dose was kept as low as reasonably achievable to obtain optimal diagnostic quality images. DICOM f ormat image data is available electronically for review and comparison. FINDINGS: AORTIC ARCH: There is a three-vessel origin of the great vessels from the aorta. No evidence of ostial narrowing. RIGHT CAROTID: The common carotid artery is intact. The carotid bulb has a normal configuration without ulceration o r narrowing. The internal carotid artery lumen is smooth without stenosis. The external carotid ambrose ry is intact. LEFT CAROTID: The common carotid artery is intact. The carotid bulb has a normal configuration without ulceration or narrowing. The internal carotid artery lumen is smooth without stenosis. The external carotid ar vicente is intact. VERTEBRALS: The vertebral arteries have a symmetric diameter. No stenotic lesions are seen. CONCLUSION: No acute disease. Abdiel Lerma MD on March 12, 2017 at 9:18 Board Certified Radiologist. This report was verified electronically.
[2017-03-12] MEDS: levETIRAcetam INJ 500 MG in SODIUM CHLORIDE 0.9% INJ 100 ML IV SCH ×3 (09:26→21:43)
--- NOTE | 2017-03-12 09:49 | RADRPT ---
EXAM DATE/TIME: 03/12/2017 08:22 [facility] COMPARISON: No previous studies available for comparison. INDICATIONS : Aphasia and left sided facial droop. IV CONTRAST: 74 cc Omnipaque 350 (iohexol) IV ; Cumulative dose for multiple exams. RADIATION DOSE: 8.96 CTDIvol (mGy) ; Combined studies MEDICAL HISTORY : Hypertension. SURGICAL HISTORY : None. ENCOUNTER: Initial ACUITY: 1 day PAIN SCALE: Non-responsive LOCATION: Bilateral head TECHNIQUE: Volumetric scanning was performed using a multi-row detector CT scanner. The data was post processed with a variety of visualization algorithms including full volume maximum intensity projection, multi -planar sliding thin slab reformation, curved planar reformation, and surface rendering techniques. Using automated exposure control and adjustment of the mA and/or kV according to patient size, radiat ion dose was kept as low as reasonably achievable to obtain optimal diagnostic quality images. DICO M format image data is available electronically for review and comparison. FINDINGS: There is excellent visualization of the major intracranial arteries out to the second-order branch ve ssels. There is no evidence for aneurysm, vessel truncation or stenosis, and no evidence for vascula r malformation. CONCLUSION: No focal stenosis, occlusion or aneurysm formation. Abdiel Lerma MD on March 12, 2017 at 9:46 Board Certified Radiologist. This report was verified electronically.
[2017-03-12] MEDS ORDERED: GADODIAMIDE PF 287 MG/ML 10 ML VIAL (for RAD MRI) IVCONTRAST ONE (10:02)
--- NOTE | 2017-03-12 10:58 | RADRPT ---
EXAM DATE/TIME: 03/12/2017 09:46 [facility] COMPARISON: CT BRAIN W/O CONTRAST, March 12, 2017, 7:43. INDICATIONS : CVA. Left subdural hematoma, r/o acute left hemisphere cva. CONTRAST: 10 cc Omniscan (gadodiamide) IV MEDICAL HISTORY : Diabetes mellitus type 2. Hypertension. SURGICAL HISTORY : Appendectomy. Cholecystectomy. ENCOUNTER: Initial ACUITY: 1 day PAIN SCORE: 0/10 LOCATION: cranial TECHNIQUE: Multiplanar, multisequence MRI of the brain was performed both prior to and following the administrat ion of paramagnetic contrast. FINDINGS: The diffusion weighted images demonstrates no focal signal abnormality to suggest acute infarct. Left frontoparietal and temporal subacute subdural hematoma is stable. Cerebral atrophy is again noted. M ild periventricular and subcortical white matter small vessel ischemic changes are noted bilaterally. No acute intracranial hemorrhage is noted. No abnormal enhancing mass lesion is noted. CONCLUSION: 1. No acute infarct, acute intracranial hemorrhage or enhancing mass lesion. 2. Stable subacute left frontal parietal and temporal subdural hematoma. 3. Cerebral atrophy. 4. Mild periventricular and subcortical white matter small vessel ischemic changes bilaterally. Abdiel Lerma MD on March 12, 2017 at 10:52 Board Certified Radiologist. This report was verified electronically.
--- NOTE | 2017-03-12 10:58 | PD.CONS ---
[facility] Service Critical Care Medicine Consult Requested By Dr. Nichols Reason for Consult Hypernatremia Primary Care Physician Jf Valderrama M.D. History of Present Illness This is an 81-year-old speaking female. Date of admission 03/10/2017. Date of consultation 03/12/2017. Past medical history includes hypothyroidism, hypertension, diabetes and gastroesophageal reflux disease. Patient was admitted February/2017. For evaluation of subdural hematoma. Was evaluated by neurosurgery recommended nonoperative/conservative management. Also has history of a chronic right subdural hygroma and normal pressure hydrocephalus. This hospitalization, admitted for syncopal episode. Workup included neurology consultation. CT brain revealed stable left subdural hematoma 11 mm located no frontal parietal temporal region. This morning, patient acute onset of altered mental status. Transfer to ICU. MRI brain reveals stable left frontal parietal temporal subdural hematoma. EEG has been ordered. Started on levetiracetam 500 mg IV every 6 hours by neurology bleed this is a seizure. Patient is [place]-speaking but following commands appropriately in [place] language. Focal deficits include right upper extremity weakness/pronator drift otherwise unremarkable. Denies chest pain, shortness of breath or abdominal pain. Review of Systems Constitutional: COMPLAINS OF: Weight loss, DENIES: Fatigue, Fever, Weight gain Endocrine: COMPLAINS OF: Heat/cold intolerance, DENIES: Polyuria Eyes: DENIES: Blurred vision Ears, nose, mouth, throat: DENIES: Tinnitus Respiratory: DENIES: Apneas Cardiovascular: COMPLAINS OF: Palpitations, DENIES: Chest pain Gastrointestinal: DENIES: Abdominal pain Genitourinary: DENIES: Urgency Musculoskeletal: DENIES: Joint pain Integumentary: DENIES: Pruritus Hematologic/lymphatic: DENIES: Bruising Immunologic/allergic: DENIES: Eczema Neurologic: COMPLAINS OF: Localized weakness, Seizures, DENIES: Headache, Paresthesias Psychiatric: COMPLAINS OF: Confusion, DENIES: Anxiety Past Family Social History Allergies: Coded Allergies: ciprofloxacin (Verified Allergy, Severe, RASH, VOMITING, 02/14/17) Past Medical History Hypertension Hypothyroidism Diabetes mellitus Gastroesophageal reflux disease History of SVT History of gastritis/gastric ulcer Past Surgical History Appendectomy Cholecystectomy ERCP Sphincterotomy Breast reduction Reported Medications Novolog Inj (Insulin Aspart) 1,000 Unit/10 Ml Vial 1-9 Units SQ ACHS Max dose at bedtime:( )units; sugars less than 70,(0)units; sugars 150-199,(1) unit; sugars 200-249,(3) units; sugars 250-299,(5) units; sugars 300-349,(7) units; sugars greater than 349,(9) units Maalox Advanced Maximum Strength (Calcium Carbonate-Simethicone) 1,000-60 Mg Chew 1 Tab CHEW ACHS PRN 30 Days Pantoprazole (Pantoprazole Sodium) 40 Mg Tab 40 Mg PO DAILY Tapazole (Methimazole) 5 Mg Tab 5 Mg PO Q8HR 30 Days Senna-Lax (Sennosides) 8.6 Mg Tab 17.2 Mg PO Q12H PRN [Lactulose Liq] 30 ML Syrp 30 Ml PO DAILY PRN Metoprolol Tartrate 25 Mg Tab 25 Mg PO Q12HR Walker/Adult/Folding (Device) 1 Mis Mis Ea .ROUTE DIRECTED PRN Norvasc (Amlodipine Besylate) 5 Mg Tab 5 Mg PO DAILY 30 Days Active Ordered Medications Reviewed in EMR Family History Positive right intrarenal cornea disease or diabetes Social History No alcohol tobacco or IV drug use Physical Exam Vital Signs Vital Signs Date Time Temp Pulse Resp B/P (MAP) Pulse Ox O2 Delivery O2 Flow Rate FiO2 03/12/17 08:00 98.0 134 19 165/77 (106) 98 03/12/17 06:33 137 20 161/87 (111) 100 03/12/17 04:01 116 03/12/17 04:00 116 03/12/17 03:00 100 03/12/17 02:00 106 03/12/17 01:00 98 03/12/17 00:13 107 03/12/17 00:00 102 03/11/17 23:00 100 03/11/17 22:00 116 03/11/17 21:00 108 03/11/17 20:48 97.9 65 20 150/65 (93) 98 03/11/17 20:06 106 03/11/17 20:00 110 03/11/17 19:00 106 03/11/17 16:01 105 145/73 (97) 151/73 (99) 03/11/17 15:34 99.2 109 18 147/74 (98) 100 03/11/17 11:44 98.5 96 18 157/73 (101) 98 Physical Exam GENERAL: 81-year-old female, resting in bed in no acute distress SKIN: Warm and dry. HEAD: Atraumatic. Normocephalic. EYES: Pupils equal and round about 3 mm bilaterally and reactive. No scleral icterus. No injection or drainage. ENT: No nasal bleeding or discharge. Mucous membranes pink and moist. NECK: Trachea midline. No JVD. CARDIOVASCULAR: Tachycardia, RR. S1, S2 no S4. Without murmur RESPIRATORY: No accessory muscle use. Clear to auscultation. Breath sounds equal bilaterally. GASTROINTESTINAL: Abdomen soft, non-tender, nondistended. Hepatic and splenic margins not palpable. MUSCULOSKELETAL: Extremities without clubbing, cyanosis, or edema. No obvious deformities. NEUROLOGICAL: Awake and alert. No obvious cranial nerve deficits. Positive right upper extremity weakness 4-5. Positive right pronator drift. Examination within normal limits Laboratory Laboratory Tests Test 03/11/17 18:33 03/11/17 22:32 03/12/17 07:03 Blood Urea Nitrogen 20 22 25 Creatinine 0.49 0.43 0.39 Random Glucose 74 82 65 Calcium Level 9.1 8.7 8.6 Sodium Level 161 163 165 Potassium Level 3.1 3.0 3.2 Chloride Level 124 126 126 Carbon Dioxide Level 29.6 26.7 28.9 Anion Gap 7 10 10 Estimat Glomerular Filtration Rate 121 141 158 White Blood Count 8.7 Red Blood Count 3.18 Hemoglobin 10.0 Bedside Hemoglobin 9.5 Hematocrit 30.4 Bedside Hematocrit 28.0 Mean Corpuscular Volume 95.4 Mean Corpuscular Hemoglobin 31.5 Mean Corpuscular Hemoglobin Concent 33.0 Red Cell Distribution Width 15.3 Platelet Count 295 Mean Platelet Volume 8.2 Neutrophils (%) (Auto) 61.4 Lymphocytes (%) (Auto) 27.7 Monocytes (%) (Auto) 9.4 Eosinophils (%) (Auto) 1.2 Basophils (%) (Auto) 0.3 Neutrophils # (Auto) 5.3 Lymphocytes # (Auto) 2.4 Monocytes # (Auto) 0.8 Eosinophils # (Auto) 0.1 Basophils # (Auto) 0.0 CBC Comment DIFF FINAL Differential Comment Prothrombin Time 13.7 Prothromb Time International Ratio 1.4 Activated Partial Thromboplast Time 22.4 Fibrinogen 298 Bedside Sodium 165 Total Protein 6.6 Albumin 1.9 Alkaline Phosphatase 77 Aspartate Amino Transf (AST/SGOT) 27 Alanine Aminotransferase (ALT/SGPT) 11 Total Bilirubin 0.4 Bedside Potassium 3.1 Bedside Chloride 122 Bedside Blood Urea Nitrogen 21 Bedside Creatinine 0.5 Bedside Glucose 69 Total Creatine Kinase 57 Troponin I 0.15 Date/Time Source Procedure Growth Status 03/09/17 15:25 Blood Peripheral Aerobic Blood Culture - Preliminary NO GROWTH IN 2 DAYS Resulted 03/09/17 15:25 Blood Peripheral Anaerobic Blood Culture - Preliminary NO GROWTH IN 2 DAYS Resulted Result Diagram: 03/12/17 0703 03/12/17 0703 Imaging Last Impressions Neck CTA 03/12/17 0000 Signed Impressions: Service Date/Time: Sunday, March 12, 2017 08:22 - CONCLUSION: No acute disease. Abdiel Lerma MD Head CTA 03/12/17 0000 Signed Impressions: Service Date/Time: Sunday, March 12, 2017 08:22 - CONCLUSION: No focal stenosis, occlusion or aneurysm formation. Abdiel Lerma MD Head CT 03/12/17 0000 Signed Impressions: Service Date/Time: Sunday, March 12, 2017 07:43 - CONCLUSION: 1. Stable subdural collection along the left frontoparietal lobe which is both subacute and acute components and measures 11 mm in greatest width. 2. Diffuse cerebral atrophy. 3. No acute infarct is noted. Abdiel Lerma MD Chest X-Ray 03/12/17 0000 Signed Impressions: Service Date/Time: Sunday, March 12, 2017 07:04 - CONCLUSION: 1. Stable cardiomegaly. 2. No acute focal pulmonary infiltrate or pulmonary vascular congestion. Abdiel Lerma MD Brain MRI 03/12/17 0000 Signed Impressions: Service Date/Time: Sunday, March 12, 2017 09:46 - CONCLUSION: 1. No acute infarct, acute intracranial hemorrhage or enhancing mass lesion. 2. Stable subacute left frontal parietal and temporal subdural hematoma. 3. Cerebral atrophy. 4. Mild periventricular and subcortical white matter small vessel ischemic changes bilaterally. Abdiel Lerma MD Carotid Artery Ultrasound 03/11/17 0000 Signed Impressions: Service Date/Time: Saturday, March 11, 2017 19:37 - CONCLUSION: 1. Mild bilateral carotid plaque 2. No evidence of hemodynamically significant stenosis. 3. Antegrade flow both vertebral arteries. 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 CT brain revealed stable left frontal parietal temporal subdural hematoma with possible acute and subacute components CTA brain and neck showed no signs of occlusive disease EEG ordered. Started on levetiracetam 500 mg IV every [address] Strickland Neurosurgery evaluation - conservative therapy no intervention at this time Patient is on oxycodone/acetaminophen 5-10/325 one tab every 6 hours as needed pain with morphine sulfate 4 mg IV every hour when necessary breakthrough through 10 PT/OT/ST evaluate and treat CV: Sinus tachycardia History of SVT Elevated troponin Patient is currently on propranolol 20 mg every 8 hours Previously on metoprolol 25 mg twice a day Continue amlodipine 5 mg daily Echocardiogram revealed EF 65-70%. Mild TR/MN. Pulmonary arterial pressures 55 -60 mmHg Resp: Nasal cannula to maintain saturations greater than equal to 92% Incentive spirometry while awake GI: Hypoalbuminemia Gastroesophageal reflux disease History of gastric ulcer Heart healthy diet Continue pantoprazole 40 mg by mouth daily/home medication Docusate sodium/senna 1 tablet twice a day for bowel regimen : No indication for Yip catheter Endo: Hyperthyroidism Continue methimazole but increased to 5-10 mg 3 times a day Thyroid ultrasound pending TSI was elevated 440. Likely Graves' disease Keep you antibodies/thyroglobulin pending TSH 0.005 on admission. Elevated T44.4 Sliding-scale insulin Novulog with Accu-Cheks before meals/at bedtime to maintain euglycemia/low regimen Renal: Monitor urine output Accurate I's and Os Currently one quarter normal saline at 84 cc an hour with free water 200 cc every 6 hours Recheck BMP in a.m. Heme: Normocytic anemia Monitor CBC daily. Follow trends ID: Monitor for infection FEN: Hypernatremia Hypokalemia Pending serum and urine osm and urine sodium Receiving KCl 30 mEq IV and a total of 80 mEq by tube today Initiate tube feedings see orders with vital 1.5 goal 45 cc an hour MSK: PT/OT evaluate and treat Access - Utilize peripheral IV. Central line if indicated Prophylaxis - GI - pantoprazole - DVT - SCD/holding pharmacological prophylaxis until okayed with neurosurgery Level II consult Code Status DNR Discussed Condition With Patient. Healthcare proxy. Care plan discussed and all questions answered. Sravan Farmer MD Mar 12, 2017 10:58
[2017-03-12] MEDS ORDERED: POTASSIUM PHOSPHATE MONOBASIC 500 MG TAB PO/TUBE PRN (11:15)
[2017-03-12] MEDS ORDERED: SODIUM PHOSPHATE INJ 30 MMOL in SODIUM CHLOR 0.9% 250 ML INJ 240 ML IV PRN (11:15)
[2017-03-12] MEDS ORDERED: MAGNESIUM OXIDE 400 MG TAB PO PRN (11:15)
[2017-03-12] MEDS ORDERED: MAGNESIUM SULFATE INJ 4 GM in SODIUM CHLORIDE 0.9% INJ 92 ML IV PRN (11:15)
[2017-03-12] MEDS ORDERED: POTASSIUM CHLOR 40 MEQ PREMIX 100 ML IV PRN ×2 (11:15)
[2017-03-12] MEDS ORDERED: POTASSIUM CHLORIDE 25 MEQ EFFERVESCENT TAB PO PRN (11:15)
[2017-03-12] MEDS ORDERED: POTASSIUM CHLOR 20 MEQ PREMIX 100 ML IV PRN ×2 (11:15)
[2017-03-12] MEDS ORDERED: POTASSIUM PHOSPHATE INJ 30 MMOL in SODIUM CHLOR 0.9% 250 ML INJ 250 ML IV PRN (11:15)
[2017-03-12] MEDS ORDERED: POTASSIUM PHOSPHATE MONOBASIC 500 MG TAB PO PRN (11:15)
[2017-03-12] MEDS ORDERED: MAGNESIUM SULFATE INJ 2 GM in SODIUM CHLORIDE 0.9% INJ 96 ML IV PRN (11:15)
[2017-03-12] MEDS: POTASSIUM CHLOR 10 MEQ PREMIX 100 ML IV SCH ×3 (11:53→14:07)
[2017-03-12] MEDS: POTASSIUM CHLORIDE 20 MEQ PWD PACKET NG SCH (12:00)
[2017-03-12] MEDS: SODIUM CHLORIDE 23.4% INJ 38.5 MEQ in WATER STERILE FOR INJ 1,000 ML IV SCH (12:12)
--- NOTE | 2017-03-12 12:37 | PD.CONS ---
HPI Service Neurosurgery Consult Requested By Dr. Maik Strickland Reason for Consult Subdural fluid collection Primary Care Physician Jf Valderrama M.D. History of Present Illness This is-year-old female with a past medical history ofr subdural hematoma, history of SVT, diabetes mellitus, atrial fibrillation. pylori gastritis/peptic ulcer and arterial hypertension who was brought to [place] emergency department for evaluation of a syncopal episode. She currently resides in a [facility]pc where she was reported to have had a possible syncopal episode. She reportedly had nausea and vomiting as well. On arrival to the emergency department, EKG showed that the patient was in atrial fibrillation with rapid ventricular response, pulse 144. Head CT showed a stable subdural hematoma that has both subacute and acute components without midline shift. Her Chest x-ray negative for acute disease. Her Mental status is at baseline. She is not oriented to place or time. She denies chest pain/shortness of breath. Neurosurgical consultation was requested. Review of Systems Constitutional: COMPLAINS OF: Weight loss, DENIES: Fatigue, Fever, Weight gain Endocrine: COMPLAINS OF: Heat/cold intolerance, DENIES: Polyuria Eyes: DENIES: Blurred vision Ears, nose, mouth, throat: DENIES: Tinnitus Respiratory: DENIES: Apneas Cardiovascular: COMPLAINS OF: Palpitations, DENIES: Chest pain Gastrointestinal: DENIES: Abdominal pain Genitourinary: DENIES: Urgency Musculoskeletal: DENIES: Joint pain Integumentary: DENIES: Pruritus Hematologic/lymphatic: DENIES: Bruising Immunologic/allergic: DENIES: Eczema Neurologic: COMPLAINS OF: Localized weakness, Seizures, DENIES: Headache, Paresthesias Psychiatric: COMPLAINS OF: Confusion, DENIES: Anxiety Past Family Social History Allergies: Coded Allergies: ciprofloxacin (Verified Allergy, Severe, RASH, VOMITING, 02/14/17) Past Medical History Subdural hematoma SVT H. pylori gastritis/peptic ulcer Hypertension Past Surgical History Appendectomy Cholecystectomy Breast reduction Reported Medications Novolog Inj (Insulin Aspart) 1,000 Unit/10 Ml Vial 1-9 Units SQ ACHS Max dose at bedtime:( )units; sugars less than 70,(0)units; sugars 150-199,(1) unit; sugars 200-249,(3) units; sugars 250-299,(5) units; sugars 300-349,(7) units; sugars greater than 349,(9) units Maalox Advanced Maximum Strength (Calcium Carbonate-Simethicone) 1,000-60 Mg Chew 1 Tab CHEW ACHS PRN 30 Days Pantoprazole (Pantoprazole Sodium) 40 Mg Tab 40 Mg PO DAILY Tapazole (Methimazole) 5 Mg Tab 5 Mg PO Q8HR 30 Days Senna-Lax (Sennosides) 8.6 Mg Tab 17.2 Mg PO Q12H PRN [Lactulose Liq] 30 ML Syrp 30 Ml PO DAILY PRN Metoprolol Tartrate 25 Mg Tab 25 Mg PO Q12HR Walker/Adult/Folding (Device) 1 Mis Mis Ea .ROUTE DIRECTED PRN Norvasc (Amlodipine Besylate) 5 Mg Tab 5 Mg PO DAILY 30 Days Active Ordered Medications Current Medications Sodium Chloride (NS Flush) 2 ml UNSCH PRN IV FLUSH FLUSH AFTER USING IV ACCESS ; Start 03/09/17 at 15:00; Stop 03/09/17 at 19:45; Status DC Sodium Chloride 1,000 ml @ 1,000 mls/hr Q1H IV Last administered on 03/09/17at 15:13; Start 03/09/17 at 14:58; Stop 03/09/17 at 15:57; Status DC Diltiazem HCl (Cardizem Inj) 15 mg ONCE ONCE IV Last administered on 03/09/17at 16:16; Start 03/09/17 at 15:45; Stop 03/09/17 at 15:46; Status DC Sodium Chloride 1,000 ml @ 999 mls/hr BOLUS ONCE IV Last administered on at 16:16; Start 03/09/17 at 15:45; Stop 03/09/17 at 16:45; Status DC Potassium Chloride 100 ml @ 50 mls/hr Q2H IV Last administered on 03/09/17at 20: 38; Start 03/09/17 at 16:45; Stop 03/09/17 at 20:44; Status DC Diltiazem HCl 125 mg/Sodium Chloride 125 ml @ 5 mls/hr TITRATE PRN IV tachycardia Last administered on 03/10/17at 02:19; Start 03/09/17 at 16:45; Stop at 19:44; Status DC Sodium Chloride (NS Flush) 2 ml UNSCH PRN IV FLUSH FLUSH AFTER USING IV ACCESS ; Start 03/09/17 at 16:45; Stop 03/09/17 at 19:45; Status DC Sodium Chloride 1,000 ml @ 70 mls/hr [id number] IV Last administered on 03/09/17at 19:00; Start 03/09/17 at 19:00; Stop 03/10/17 at 03:54; Status DC Sodium Chloride (NS Flush) 2 ml UNSCH PRN IV FLUSH FLUSH AFTER USING IV ACCESS ; Start 03/09/17 at 17:00; Stop 03/09/17 at 19:45; Status DC Sodium Chloride (NS Flush) 2 ml BID IV FLUSH ; Start 03/09/17 at 21:00; Stop 03/09 at 21:00; Status DC Acetaminophen (Tylenol) 650 mg Q4H PRN PO TEMP > 100.4; Start 03/09/17 at 17:00 Ondansetron HCl (Zofran Inj) 4 mg Q6H PRN IVP NAUSEA OR VOMITING Last administered on 03/10/17at 20:38; Start 03/09/17 at 17:00 Metoclopramide HCl (Reglan Inj) 5 mg Q6H PRN IV PUSH NAUSEA OR VOMITING; Start 03/09/17 at 17:00 Acetaminophen (Tylenol) 650 mg Q6H PRN PO PAIN SCALE 1 TO 2; Start 03/09/17 at 17:00 Oxycodone/ Acetaminophen (Percocet 5-325 Mg) 1 tab Q6H PRN PO PAIN SCALE 3 TO 5 Last administered on 03/11/17at 05:30; Start 03/09/17 at 17:00 Oxycodone/ Acetaminophen (Percocet 10-325 Mg) 1 tab Q6H PRN PO PAIN SCALE 6 TO 10 Last administered on 03/10/17at 20:24; Start 03/09/17 at 17:00 Morphine Sulfate (Morphine Inj) 2 mg Q3H PRN IV PUSH Pain 3-5; if unable to take PO; Start 03/09/17 at 17:00 Morphine Sulfate (Morphine Inj) 4 mg Q3H PRN IV PUSH Pain 6-10;if unable to take PO; Start 03/09/17 at 17:00 Morphine Sulfate (Morphine Inj) 4 mg Q1H PRN IV PUSH PAIN SCALE 7-10 ( INTRACTABLE); Start 03/09/17 at 17:00 Morphine Sulfate (Morphine Inj) 4 mg Q3H PRN IV PUSH BREAKTHROUGH PAIN Last administered on 03/11/17at 08:26; Start 03/09/17 at 17:00 Naloxone HCl (Narcan Inj) 0.4 mg UNSCH PRN IV PUSH SEE LABEL COMMENTS; Start at 17:00 Senna/Docusate Sodium (Lara-Colace) 1 tab BID PO Last administered on 03/11/17at 08:26; Start 03/09/17 at 21:00 Magnesium Hydroxide (Milk Of Magnesia Liq) 30 ml Q12H PRN PO Mild constipation ; Start 03/09/17 at 17:00 Sennosides (Senokot) 17.2 mg Q12H PRN PO Moderate constipation; Start 03/09/17 at 17:00 Bisacodyl (Dulcolax Supp) 10 mg DAILY PRN RECTAL SEVERE CONSITIPATION; Start at 17:00 Lactulose (Lactulose Liq) 30 ml DAILY PRN PO SEVERE CONSITIPATION; Start at 17:00 Sodium Chloride (NS Flush) 2 ml UNSCH PRN IV FLUSH FLUSH AFTER USING IV ACCESS ; Start 03/09/17 at 17:15 Sodium Chloride (NS Flush) 2 ml BID IV FLUSH Last administered on 03/12/17at 09: 00; Start 03/09/17 at 21:00 Diltiazem HCl 125 mg/Sodium Chloride 125 ml @ 5 mls/hr TITRATE PRN IV Tachycardia; Start 03/09/17 at 17:15 Metoprolol Tartrate (Lopressor) 25 mg Q12HR PO Last administered on 03/11/17at 22 :18; Start 03/09/17 at 21:00; Stop 03/12/17 at 11:14; Status DC Pantoprazole Sodium (Protonix) 40 mg DAILY PO Last administered on 03/11/17at 08: 26; Start 03/10/17 at 09:00 Sodium Chloride 1,000 ml @ 42 mls/hr [id number] IV Last administered on 03/10/17at 04:27; Start 03/10/17 at 04:00; Stop 03/10/17 at 08:25; Status DC Sodium Chloride 1,000 ml @ 42 mls/hr [id number] IV Last administered on 03/10/17at 12:03; Start 03/10/17 at 09:00; Stop 03/10/17 at 15:59; Status DC Potassium Chloride (KCl) 40 meq ONCE ONCE PO ; Start 03/10/17 at 10:45; Stop 03/10/17 at 10:46; Status DC Potassium Chloride 20 meq/ Sodium Chloride 1,010 ml @ 42 mls/hr Q24H IV ; Start 03/11/17 at 09:00; Status Cancel Potassium Chloride/Sodium Chloride 1,000 ml @ 42 mls/hr [id number] IV Last administered on 03/12/17at 09:26; Start 03/10/17 at 17:15; Stop 03/12/17 at 11:01; Status DC Amlodipine Besylate (Norvasc) 5 mg DAILY PO Last administered on 03/11/17at 08:26 ; Start 03/10/17 at 18:00 Methimazole (Tapazole) 5 mg Q8HR PO Last administered on 03/11/17at 22:18; Start 03/10/17 at 22:00; Stop 03/12/17 at 11:01; Status DC Lorazepam (Ativan Inj) 0.5 mg Q8HR PRN IV PUSH anxiety Last administered on 03/11at 22:18; Start 03/11/17 at 14:00 Dextrose (D50w (Syr) Inj) 50 ml STK-MED ONCE .ROUTE ; Start 03/12/17 at 06:59; Stop 03/12/17 at 07:00; Status DC Dextrose (D50w (Syr) Inj) 25 ml ONCE ONCE IV PUSH Last administered on at 07:00; Start 03/12/17 at 07:00; Stop 03/12/17 at 07:03; Status DC Levetriacetam 500 mg/Sodium Chloride 105 ml @ 420 mls/hr Q6H IV Last administered on 03/12/17at 09:26; Start 03/12/17 at 09:00 Iohexol (Omnipaque 350 Inj) 74 ml STK-MED ONCE IVCONTRAST Last administered on 03/12/17at 08:57; Start 03/12/17 at 08:57; Stop 03/12/17 at 08:58; Status DC Gadodiamide (Omniscan Pf Inj) 10 ml STK-MED ONCE IVCONTRAST Last administered on 03/12/17at 10:02; Start 03/12/17 at 10:02; Stop 03/12/17 at 10:03; Status DC Methimazole (Tapazole) 10 mg Q8HR PO ; Start 03/12/17 at 14:00 Sodium Chloride 38.5 meq/Sterile Water 1,009.625 ml @ 84 mls/hr Q12H2M IV Last administered on 03/12/17at 12:12; Start 03/12/17 at 11:00 Potassium Chloride 100 ml @ 50 mls/hr Q2H PRN IV For Potassium 2.8 - 3.2 mEq/L ; Start 03/12/17 at 11:15 Potassium Chloride 100 ml @ 50 mls/hr Q2H PRN IV For Potassium 2.8 - 3.2 mEq/L ; Start 03/12/17 at 11:15 Potassium Bicarb/ Potassium Chloride (K-Lyte Cl Eff) 50 meq UNSCH PRN PO For Potassium 3.3 - 3.5 mEq/L; Start 03/12/17 at 11:15 Potassium Chloride 100 ml @ 25 mls/hr UNSCH PRN IV For Potassium 3.3 - 3.5 mEq /L; Start 03/12/17 at 11:15 Potassium Chloride 100 ml @ 50 mls/hr Q2H PRN IV For Potassium 3.3 - 3.5 mEq/L ; Start 03/12/17 at 11:15 Magnesium Sulfate 4 gm/Sodium Chloride 100 ml @ 50 mls/hr UNSCH PRN IV For Magnesium 0.9 - 1.1 mg/dL; Start 03/12/17 at 11:15 Magnesium Oxide (Mag-Ox) 800 mg UNSCH PRN PO For Magnesium 1.2 - 1.6 mg/dL; Start 03/12/17 at 11:15 Magnesium Sulfate 2 gm/Sodium Chloride 100 ml @ 50 mls/hr UNSCH PRN IV For Magnesium 1.2 - 1.6 mg/dL; Start 03/12/17 at 11:15 Potassium Phosphate (K-Phos) 2,000 mg Q4H PRN PO For Phosphorus < 2.5 mg/dL; Start 03/12/17 at 11:15 Sodium Phosphate 30 mmol/Sodium Chloride 250 ml @ 42 mls/hr UNSCH PRN IV For Phosphorus < 2.5 mg/dL; Start 03/12/17 at 11:15 Potassium Phosphate (K-Phos) 2,000 mg UNSCH PRN PO/TUBE SEE LABEL COMMENTS; Start 03/12/17 at 11:15 Potassium Phosphate 30 mmol/ Sodium Chloride 260 ml @ 42 mls/hr UNSCH PRN IV SEE LABEL COMMENTS; Start 03/12/17 at 11:15 Propranolol HCl (Inderal) 20 mg Q8HR PO ; Start 03/12/17 at 14:00 Potassium Chloride (KCl Powder) 40 meq Q12H NG ; Start 03/12/17 at 12:00; Stop at 00:01 Potassium Chloride 100 ml @ 100 mls/hr Q1H IV Last administered on 03/12/17at 11 :53; Start 03/12/17 at 11:30; Stop 03/12/17 at 14:29 Family History Her family history was reviewed. No family history of CAD/DM Social History No alcohol, tobacco or illicit drug use Physical Exam Vital Signs Vital Signs Date Time Temp Pulse Resp B/P (MAP) Pulse Ox O2 Delivery O2 Flow Rate FiO2 03/12/17 12:00 98.1 136 21 172/79 (110) 100 03/12/17 08:00 98.0 134 19 165/77 (106) 98 03/12/17 06:33 137 20 161/87 (111) 100 03/12/17 04:01 116 03/12/17 04:00 116 03/12/17 03:00 100 03/12/17 02:00 106 03/12/17 01:00 98 03/12/17 00:13 107 03/12/17 00:00 102 03/11/17 23:00 100 03/11/17 22:00 116 03/11/17 21:00 108 03/11/17 20:48 97.9 65 20 150/65 (93) 98 03/11/17 20:06 106 03/11/17 20:00 110 03/11/17 19:00 106 03/11/17 16:01 105 145/73 (97) 151/73 (99) 03/11/17 15:34 99.2 109 18 147/74 (98) 100 Physical Exam The patient is alert, confused, oriented to self. Cranial nerve examination demonstrates the pupils to be equal, round, and reactive to light. Extra-ocular movements are intact with normal convergence. Facial motor function appears normal and symmetrical. Face sensation, hearing, visual grubbs, and olfaction can not be assessed properly due to the patients condition. The patient has an intact corneal reflex and a gag reflex. Sternocleidomastoid and trapezius have normal and symmetrical strength. Other cranial nerves are intact. Neck is soft and supple. Cervical spine has a decreased range of motion of the cervical spine without pain. There is no tenderness to palpation to the spinous processes or paraspinal muscles. Muscle testing reveals normal bulk and tone overall without rigidity, spasticity , fasciculations, or atrophy. Muscle strength is 5/5 in all muscle groups of both upper and lower extremities. Deep tendon reflexes are 1+ and symmetrical in the biceps, triceps, and brachioradialis, bilaterally, in the upper extremities. In the lower extremities , the patellar and Achilles are 1+, bilaterally. There is a bilateral plantar flexion response. Hoffmanns sign is negative. There is no clonus or other abnormal reflexes noted. Cerebellar examination is limited due to the patient condition, but no obvious deficits are noted. Laboratory Laboratory Tests Test 03/11/17 18:33 03/11/17 22:32 03/12/17 07:03 Blood Urea Nitrogen 20 22 25 Creatinine 0.49 0.43 0.39 Random Glucose 74 82 65 Calcium Level 9.1 8.7 8.6 Sodium Level 161 163 165 Potassium Level 3.1 3.0 3.2 Chloride Level 124 126 126 Carbon Dioxide Level 29.6 26.7 28.9 Anion Gap 7 10 10 Estimat Glomerular Filtration Rate 121 141 158 White Blood Count 8.7 Red Blood Count 3.18 Hemoglobin 10.0 Bedside Hemoglobin 9.5 Hematocrit 30.4 Bedside Hematocrit 28.0 Mean Corpuscular Volume 95.4 Mean Corpuscular Hemoglobin 31.5 Mean Corpuscular Hemoglobin Concent 33.0 Red Cell Distribution Width 15.3 Platelet Count 295 Mean Platelet Volume 8.2 Neutrophils (%) (Auto) 61.4 Lymphocytes (%) (Auto) 27.7 Monocytes (%) (Auto) 9.4 Eosinophils (%) (Auto) 1.2 Basophils (%) (Auto) 0.3 Neutrophils # (Auto) 5.3 Lymphocytes # (Auto) 2.4 Monocytes # (Auto) 0.8 Eosinophils # (Auto) 0.1 Basophils # (Auto) 0.0 CBC Comment DIFF FINAL Differential Comment Prothrombin Time 13.7 Prothromb Time International Ratio 1.4 Activated Partial Thromboplast Time 22.4 Fibrinogen 298 Bedside Sodium 165 Total Protein 6.6 Albumin 1.9 Alkaline Phosphatase 77 Aspartate Amino Transf (AST/SGOT) 27 Alanine Aminotransferase (ALT/SGPT) 11 Total Bilirubin 0.4 Bedside Potassium 3.1 Bedside Chloride 122 Bedside Blood Urea Nitrogen 21 Bedside Creatinine 0.5 Bedside Glucose 69 Total Creatine Kinase 57 Troponin I 0.15 Date/Time Source Procedure Growth Status 03/09/17 15:25 Blood Peripheral Aerobic Blood Culture - Preliminary NO GROWTH IN 3 DAYS Resulted 03/09/17 15:25 Blood Peripheral Anaerobic Blood Culture - Preliminary NO GROWTH IN 3 DAYS Resulted Result Diagram: 03/12/17 0703 03/12/17 0703 Imaging Last 48 hours Impressions Neck CTA 03/12/17 0000 Signed Impressions: Service Date/Time: Sunday, March 12, 2017 08:22 - CONCLUSION: No acute disease. Abdiel Lerma MD Head CTA 03/12/17 0000 Signed Impressions: Service Date/Time: Sunday, March 12, 2017 08:22 - CONCLUSION: No focal stenosis, occlusion or aneurysm formation. Abdiel Lerma MD Head CT 03/12/17 0000 Signed Impressions: Service Date/Time: Sunday, March 12, 2017 07:43 - CONCLUSION: 1. Stable subdural collection along the left frontoparietal lobe which is both subacute and acute components and measures 11 mm in greatest width. 2. Diffuse cerebral atrophy. 3. No acute infarct is noted. Abdiel Lerma MD Chest X-Ray 03/12/17 0000 Signed Impressions: Service Date/Time: Sunday, March 12, 2017 07:04 - CONCLUSION: 1. Stable cardiomegaly. 2. No acute focal pulmonary infiltrate or pulmonary vascular congestion. Abdiel Lerma MD Brain MRI 03/12/17 0000 Signed Impressions: Service Date/Time: Sunday, March 12, 2017 09:46 - CONCLUSION: 1. No acute infarct, acute intracranial hemorrhage or enhancing mass lesion. 2. Stable subacute left frontal parietal and temporal subdural hematoma. 3. Cerebral atrophy. 4. Mild periventricular and subcortical white matter small vessel ischemic changes bilaterally. Abdiel Lerma MD Carotid Artery Ultrasound 03/11/17 0000 Signed Impressions: Service Date/Time: Saturday, March 11, 2017 19:37 - CONCLUSION: 1. Mild bilateral carotid plaque 2. No evidence of hemodynamically significant stenosis. 3. Antegrade flow both vertebral arteries. Killian Lo MD Assessment and Plan Assessment and Plan Caprini VTE Risk Assessment Caprini VTE Risk Assessment: Mod/High Risk (score >= 2) Caprini Risk Assessment Model Point Value = 1 Point Value = 2 Point Value = 3 Point Value = 5 Age 41-60 Minor surgery BMI > 25 kg/m2 Swollen legs Varicose veins or History of unexplained or recurrent spontaneous Oral contraceptives or hormone replacement Sepsis (< 1 month) Serious lung disease, including pneumonia (< 1 month) Abnormal pulmonary function Acute myocardial infarction Congestive heart failure (< 1 month) History of inflammatory bowel disease Medical patient at bed rest Age 61-74 Arthroscopic surgery Major open surgery (> 45 min) Laparoscopic surgery (> 45 min) Malignancy Confined to bed (> 72 hours) Immobilizing plaster cast Central venous access Age >= 75 History of VTE Family history of VTE Factor V Leiden Prothrombin [id number] Lupus anticoagulant Anticardiolipin antibodies Elevated serum homocysteine Heparin-induced thrombocytopenia Other congenital or acquired thrombophilia Stroke (< 1 month) Elective arthroplasty Hip, pelvis, or leg fracture Acute spinal cord injury (< 1 month) Prophylaxis Regimen Total Risk Factor Score Risk Level Prophylaxis Regimen 0-1 Low Early ambulation 2 Moderate Order ONE of the following: *Sequential Compression Device (SCD) *Heparin 5000 units SQ BID 3-4 Higher Order ONE of the following medications: *Heparin 5000 units SQ TID *Enoxaparin/Lovenox 40 mg SQ daily (WT < 150 kg, CrCl > 30 mL/min) *Enoxaparin/Lovenox 30 mg SQ daily (WT < 150 kg, CrCl > 10-29 mL/min) *Enoxaparin/Lovenox 30 mg SQ BID (WT < 150 kg, CrCl > 30 mL/min) AND/OR *Sequential Compression Device (SCD) 5 or more Highest Order ONE of the following medications: *Heparin 5000 units SQ TID (Preferred with Epidurals) *Enoxaparin/Lovenox 40 mg SQ daily (WT < 150 kg, CrCl > 30 mL/min) *Enoxaparin/Lovenox 30 mg SQ daily (WT < 150 kg, CrCl > 10-29 mL/min) *Enoxaparin/Lovenox 30 mg SQ BID (WT < 150 kg, CrCl > 30 mL/min) AND *Sequential Compression Device (SCD) Attending Statement Subdural hematoma She has a known subdural hematoma CT of the head shows subdural collection with acute and subacute components I discussed the alternatives of treatment with her caregiver Pulmonary aggressive pulmonary toilet with incentive spirometer, NT suction and nebulizers as needed Atrial fibrillation with rapid ventricular response EKG significant for atrial fibrillation with rapid ventricular response, no ST segment elevations or depressions, reviewed by me Les aguero Telemetry Cardiology consulted Electrolyte replacement as below Physical therapy and occupational therapy consultation Electrolyte abnormalities Hypernatremia - NS Hypokalemia - status post IV repletion Follow-up BMP Magnesium level pending Arterial Hypertension Continue home metoprolol, amlodipine Diabetes mellitus Monitor serial Accu-Cheks Monitor blood glucose PUD Continue Protonix KALYN hose and sequential compression device for prophylaxis of the benefits thromboses Jose L Taveras MD Mar 12, 2017 12:37
--- NOTE | 2017-03-12 13:26 | RADRPT ---
EXAM DATE/TIME: 03/12/2017 11:33 [facility] COMPARISON: No previous studies available for comparison. INDICATIONS : NG tube placement. MEDICAL HISTORY : Hypercholesterolemia. Hypertension. Ulcers. CVA. SURGICAL HISTORY : Appendectomy. Cholecystectomy. Tubal ligation. ENCOUNTER: Initial ACUITY: 1 day PAIN SCORE: Non-responsive. LOCATION: Bilateral abdomen. FINDINGS: Examination of the abdomen demonstrates a normal bowel gas pattern. No free air is identified. No o rganomegaly is evident. Osseous structures are intact. CONCLUSION: No evidence of obstruction. Dobbhoff feeding tube in the fundus of the stomach Franki Winkler MD on March 12, 2017 at 13:23 Board Certified Radiologist. This report was verified electronically.
[2017-03-12] MEDS: PROPRANOLOL HCL 20 MG TAB PO SCH ×2 (14:06→21:44)
--- NOTE | 2017-03-12 14:06 | EKG ---
Date Performed: 03/12/2017 Time Performed: 07:05:26 PTAGE: 81 years EKG: SINUS TACHYCARDIA WITH SHORT AL INTERVAL NONSPECIFIC ST & T-WAVE ABNORMALITY ABNORMAL RHYTH M ECG Compared to PREVIOUS TRACING , the heart rate is slightly slower. Previous tracing showed sinus tachy cardia with PACS, no PACs present on this tracing. PREVIOUS TRACIN03/09/2017 15.30 DOCTOR: Lito Choe Interpretating Date/Time 03/12/2017 14:05:12
[2017-03-12 16:42] LABS: TROPONIN I 0.23 NG/ML (0.02-0.05)
[2017-03-12 17:20] LABS: SODIUM,RANDOM URINE 109 MEQ/L
[2017-03-12 18:00] LABS: OSMOLALITY,URINE 554 MOSM/KG (300-1300)
[2017-03-12] MEDS: FREE WATER G-TUBE SCH (18:00)
--- NOTE | 2017-03-12 19:22 | RADRPT ---
EXAM DATE/TIME: 03/12/2017 17:54 [facility] COMPARISON: No previous studies available for comparison. INDICATIONS : Palpable thyroid nodule. MEDICAL HISTORY : Hypercholesterolemia. Hypertension. Diabetes. SURGICAL HISTORY : Cholecystectomy. Appendectomy. ENCOUNTER: Initial ACUITY: 1 day PAIN SCORE: 0/10 LOCATION: Bilateral neck MEASUREMENTS: RIGHT LOBE: 3.7 x 1.2 x 1.7 cm LEFT LOBE: 3.6 x 1.5 x 1.6 cm FINDINGS: RIGHT LOBE: A heterogeneous echotexture is noted. A 9 mm solid hypoechoic nodule is seen along the posterior mid gland. The nodule either appears exophytic. LEFT LOBE: Echotexture is mildly heterogeneous. There are no solid nodules or cysts. ISTHMUS: Normal in size without focal abnormality. CONCLUSION: 1. 9 mm nodule in the mid right thyroid gland along the posterior margin. It is uncertain whether thi s represents a thyroid or parathyroid nodule. 2. Mild heterogeneous appearance of the thyroid gland 3. No other discrete masses. Killian Lo MD on March 12, 2017 at 19:15 Board Certified Radiologist. This report was verified electronically.
[2017-03-12 22:21] LABS: FREE T3 7.84 PG/ML (2.18-3.98); TROPONIN I 0.11 NG/ML (0.02-0.05)
[2017-03-13] VITALS (13 sets, daily range): BP systolic 104–143; BP diastolic 48–64; PULSE 59–82; RESP 18–24; TEMP 97.3–98.4; O2SAT 100
[2017-03-13] MEDS: POTASSIUM CHLORIDE 20 MEQ PWD PACKET NG SCH
[2017-03-13] MEDS: SODIUM CHLORIDE 23.4% INJ 38.5 MEQ in WATER STERILE FOR INJ 1,000 ML IV SCH ×3 (03:05→22:12)
[2017-03-13] MEDS: levETIRAcetam INJ 500 MG in SODIUM CHLORIDE 0.9% INJ 100 ML IV SCH ×4 (03:05→20:07)
[2017-03-13 03:27] LABS: AUTOMATED NEUTROPHIL # 6.6 TH/MM3 (1.8-7.7); BASOPHIL % 0.3 % (0.0-2.0); EOSINOPHIL # 0.2 TH/MM3 (0-0.4); EOSINOPHIL % 2.4 % (0.0-4.0); HEMATOCRIT 27.8 % (35.0-46.0); HEMOGLOBIN 9.3 GM/DL (11.6-15.3); LYMPH % 23.6 % (9.0-44.0); LYMPHOCYTE # 2.4 TH/MM3 (1.0-4.8); MEAN CELL VOLUME 95.9 FL (80.0-100.0); MEAN CORPUSCULAR HEMOGLOBIN 32.1 PG (27.0-34.0); MEAN CORPUSCULAR HGB CONC 33.5 % (32.0-36.0); MEAN PLATELET VOLUME 8.6 FL (7.0-11.0); MONO % 7.7 % (0.0-8.0); MONOCYTE # 0.8 TH/MM3 (0-0.9); PLATELET COUNT 258 TH/MM3 (150-450); RED CELL DISTRIBUTION WIDTH 15.1 % (11.6-17.2); WHITE BLOOD COUNT 10.1 TH/MM3 (4.0-11.0)
[2017-03-13 03:58] LABS: ALBUMIN 1.7 GM/DL (3.4-5.0); ALKALINE PHOSPHATASE 67 U/L (45-117); ALT (GPT) 14 U/L (10-53); AST (GOT) 29 U/L (15-37); BICARBONATE 28.8 MEQ/L (21.0-32.0); BLOOD UREA NITROGEN 13 MG/DL (7-18); CALCIUM 8.1 MG/DL (8.5-10.1); CHLORIDE 115 MEQ/L (98-107); CREATININE 0.28 MG/DL (0.50-1.00); GLOMERULAR FILTRATION RATE 231 ML/MIN (>89); GLUCOSE,RANDOM 78 MG/DL (74-106); MAGNESIUM 1.3 MG/DL (1.5-2.5); PHOSPHORUS 2.2 MG/DL (2.5-4.9); SODIUM (NA) 150 MEQ/L (136-145); TOTAL BILIRUBIN ADULT 0.5 MG/DL (0.2-1.0); TOTAL PROTEIN 6.3 GM/DL (6.4-8.2)
--- NOTE | 2017-03-13 05:22 | MG ---
cc: RAVINDRA JIMENEZ M.D. Lab No: [id number] Date: 03/11/2017 Age: Sex: F Race: TECHNIQUE A 17-channel EEG. DESCRIPTION The background rhythm reveals generalized slowing in the theta frequency at 6 Hz. There are no lateralizing features. No epileptiform activity is identified. There is some muscle artifact. Photic results in no significant driving response. INTERPRETATION Abnormal study consistent with a moderate degree of encephalopathy. MD VLADIMIR Cruz/KELLY /8:50 PM /5:04 AM
[2017-03-13] MEDS: PROPRANOLOL HCL 20 MG TAB PO SCH ×3 (06:00→22:11)
[2017-03-13] MEDS: METHIMAZOLE 5 MG TAB PO SCH ×3 (06:07→22:11)
[2017-03-13] MEDS: FREE WATER G-TUBE SCH ×5 (06:07→23:31)
[2017-03-13] MEDS: SODIUM CHLORIDE 0.9% FLUSH 10 ML FLUSH IV FLUSH SCH ×2 (08:57→20:08)
[2017-03-13] MEDS: PANTOPRAZOLE SOD 40 MG DELAYED RELEASE TAB PO SCH (08:57)
[2017-03-13] MEDS: amLODIPine BESYLATE 5 MG TAB PO SCH (08:57)
[2017-03-13] MEDS: DOCUSATE SODIUM 50 MG/SENNA 8.6 MG TAB PO SCH ×2 (09:01→19:32)
--- NOTE | 2017-03-13 09:59 | HHI.CCPN ---
Subjective Remarks/Hospital Course 03/12: This is an 81-year-old speaking female. Date of admission 2017. Date of consultation 03/12/2017. Past medical history includes hypothyroidism, hypertension, diabetes and gastroesophageal reflux disease. Patient was admitted February/2017. For evaluation of subdural hematoma. Was evaluated by neurosurgery recommended nonoperative/conservative management. Also has history of a chronic right subdural hygroma and normal pressure hydrocephalus. This hospitalization, admitted for syncopal episode. Workup included neurology consultation. CT brain revealed stable left subdural hematoma 11 mm located no frontal parietal temporal region. This morning, patient acute onset of altered mental status. Transfer to ICU. MRI brain reveals stable left frontal parietal temporal subdural hematoma. EEG has been ordered. Started on levetiracetam 500 mg IV every 6 hours by neurology bleed this is a seizure. Patient is Moh[place]-speaking but following commands appropriately in [place] language. Focal deficits include right upper extremity weakness/pronator drift otherwise unremarkable. Denies chest pain, shortness of breath or abdominal pain. 03/13: Resting in bed. Tolerating tube feeds. Has baseline dementia. Not following commands. Objective Vital Signs Date Time Temp Pulse Resp B/P (MAP) Pulse Ox O2 Delivery O2 Flow Rate FiO2 03/13/17 08:09 100 03/13/17 06:00 59 03/13/17 04:00 97.3 24 137/62 (87) 03/12/17 21:05 21 03/12/17 19:00 Room Air Intake and Output 03/13/17 03/13/17 03/14/17 08:00 16:00 00:00 Intake Total 1670 ml Balance 1670 ml Result Diagram: 03/13/17 0200 03/13/17 0200 Imaging Last Impressions Neck CTA 03/12/17 0000 Signed Impressions: Service Date/Time: Sunday, March 12, 2017 08:22 - CONCLUSION: No acute disease. Abdiel Lerma MD Head CTA 03/12/17 0000 Signed Impressions: Service Date/Time: Sunday, March 12, 2017 08:22 - CONCLUSION: No focal stenosis, occlusion or aneurysm formation. Abdiel Lerma MD Head CT 03/12/17 0000 Signed Impressions: Service Date/Time: Sunday, March 12, 2017 07:43 - CONCLUSION: 1. Stable subdural collection along the left frontoparietal lobe which is both subacute and acute components and measures 11 mm in greatest width. 2. Diffuse cerebral atrophy. 3. No acute infarct is noted. Abdiel Lerma MD Chest X-Ray 03/12/17 0000 Signed Impressions: Service Date/Time: Sunday, March 12, 2017 07:04 - CONCLUSION: 1. Stable cardiomegaly. 2. No acute focal pulmonary infiltrate or pulmonary vascular congestion. Abdiel Lerma MD Brain MRI 03/12/17 0000 Signed Impressions: Service Date/Time: Sunday, March 12, 2017 09:46 - CONCLUSION: 1. No acute infarct, acute intracranial hemorrhage or enhancing mass lesion. 2. Stable subacute left frontal parietal and temporal subdural hematoma. 3. Cerebral atrophy. 4. Mild periventricular and subcortical white matter small vessel ischemic changes bilaterally. Abdiel Lerma MD Carotid Artery Ultrasound 03/11/17 0000 Signed Impressions: Service Date/Time: Saturday, March 11, 2017 19:37 - CONCLUSION: 1. Mild bilateral carotid plaque 2. No evidence of hemodynamically significant stenosis. 3. Antegrade flow both vertebral arteries. Killian Lo MD Objective Remarks GENERAL: 81-year-old female, resting in bed in no acute distress SKIN: Warm and dry. HEAD: Atraumatic. Normocephalic. EYES: Pupils equal and round about 3 mm bilaterally and reactive. No scleral icterus. No injection or drainage. ENT: No nasal bleeding or discharge. Mucous membranes pink and moist. NECK: Trachea midline. No JVD. CARDIOVASCULAR: Tachycardia, RR. S1, S2 no S4. Without murmur RESPIRATORY: No accessory muscle use. Clear to auscultation. Breath sounds equal bilaterally. GASTROINTESTINAL: Abdomen soft, non-tender, nondistended. Hepatic and splenic margins not palpable. MUSCULOSKELETAL: Extremities without clubbing, cyanosis, or edema. No obvious deformities. NEUROLOGICAL: Awake and alert. No obvious cranial nerve deficits. Positive right upper extremity weakness 4-5. Positive right pronator drift. 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 CT brain revealed stable left frontal parietal temporal subdural hematoma with possible acute and subacute components CTA brain and neck showed no signs of occlusive disease EEG ordered. Started on levetiracetam 500 mg IV every [address] Strickland Neurosurgery evaluation - conservative therapy no intervention at this time Patient is on oxycodone/acetaminophen 5-10/325 one tab every 6 hours as needed pain with morphine sulfate 4 mg IV every hour when necessary breakthrough through 10 PT/OT/ST evaluate and treat CV: Sinus tachycardia History of SVT Elevated troponin Patient is currently on propranolol 20 mg every 8 hours Previously on metoprolol 25 mg twice a day Continue amlodipine 5 mg daily Echocardiogram revealed EF 65-70%. Mild TR/AL. Pulmonary arterial pressures 55 -60 mmHg Resp: Nasal cannula to maintain saturations greater than equal to 92% Incentive spirometry while awake GI: Hypoalbuminemia Gastroesophageal reflux disease History of gastric ulcer Heart healthy diet Continue pantoprazole 40 mg by mouth daily/home medication Docusate sodium/senna 1 tablet twice a day for bowel regimen : No indication for Yip catheter Endo: Hyperthyroidism Continue methimazole but increased to 5-10 mg 3 times a day Thyroid ultrasound pending TSI was elevated 440. Likely Graves' disease Keep you antibodies/thyroglobulin pending TSH 0.005 on admission. Elevated T44.4 Sliding-scale insulin Novulog with Accu-Cheks before meals/at bedtime to maintain euglycemia/low regimen Renal: Monitor urine output Accurate I's and Os Currently one quarter normal saline at 84 cc an hour with free water 200 cc every 6 hours Recheck BMP in a.m. Heme: Normocytic anemia Monitor CBC daily. Follow trends ID: Monitor for infection FEN: Hypernatremia Hypokalemia Pending serum and urine osm and urine sodium Receiving KCl 30 mEq IV and a total of 80 mEq by tube today Initiate tube feedings see orders with vital 1.5 goal 45 cc an hour MSK: PT/OT evaluate and treat Access - Utilize peripheral IV. Central line if indicated Prophylaxis - GI - pantoprazole - DVT - SCD/holding pharmacological prophylaxis until okayed with neurosurgery Discussed with Dr. Taveras from neurosurgery. Okay to transfer out of ICU, no neurosurgical intervention planned. We will consult palliative care to assist with deciding goals of therapy. Answer to hospitalist service for further medical management. Critical care will be signing off, please reconsult if needed. Level II consult Narinder Burrows MD Mar 13, 2017 09:59
--- NOTE | 2017-03-13 12:06 | HHI.NSPN ---
(Maya Schreiber) Note Status Status: Progress Note (Maya Schreiber) Interval History Interval History This is-year-old female with a past medical history ofr subdural hematoma, history of SVT, diabetes mellitus, atrial fibrillation. pylori gastritis/peptic ulcer and arterial hypertension who was brought to [place] emergency department for evaluation of a syncopal episode. She currently resides in a prison where she was reported to have had a possible syncopal episode. She reportedly had nausea and vomiting as well. On arrival to the emergency department, EKG showed that the patient was in atrial fibrillation with rapid ventricular response, pulse 144. Head CT showed a stable subdural hematoma that has both subacute and acute components without midline shift. Her Chest x-ray negative for acute disease. Her Mental status is at baseline. She is not oriented to place or time. She denies chest pain/shortness of breath. Neurosurgical consultation was requested. 03/13: slightly more lethargic today, but oriented to name in Maldivian and followed few simple command in Maldivian (Maya Schreiber) Labs, Micro, & Vital Signs Results Date Time Temp Pulse Resp B/P (MAP) Pulse Ox O2 Delivery O2 Flow Rate FiO2 03/13/17 08:09 100 03/13/17 06:00 59 03/13/17 04:00 97.3 65 24 137/62 (87) 100 03/13/17 04:00 65 03/13/17 02:00 62 03/13/17 00:00 97.8 67 20 134/62 (86) 100 03/13/17 00:00 67 03/12/17 22:00 83 03/12/17 21:05 100 21 03/12/17 20:00 99.0 70 18 150/67 (94) 100 03/12/17 20:00 77 03/12/17 19:00 100 Room Air 03/12/17 16:00 97.5 80 28 152/72 (98) 100 Constitutional Vital Signs Date Time Temp Pulse Resp B/P (MAP) Pulse Ox O2 Delivery O2 Flow Rate FiO2 03/13/17 08:09 100 03/13/17 06:00 59 03/13/17 04:00 97.3 65 24 137/62 (87) 100 03/13/17 04:00 65 03/13/17 02:00 62 03/13/17 00:00 97.8 67 20 134/62 (86) 100 03/13/17 00:00 67 03/12/17 22:00 83 03/12/17 21:05 100 21 03/12/17 20:00 99.0 70 18 150/67 (94) 100 03/12/17 20:00 77 03/12/17 19:00 100 Room Air 03/12/17 16:00 97.5 80 28 152/72 (98) 100 (Maya Schreiber) Review of Systems ROS Limitations: Clinical Condition, Altered Mental Status (Maya Schreiber) Physical Exam Ms. Matthew awake, appears more lethargic today. Followed simple commands in Maldivian. Oriented to name only. Cranial nerve examination: pupils to be equal. Right supranuclear palsy, Right ptosis. Neck is soft and supple Motor: grossly moved all four ext to command, cannot assess detail exam due to clinical condition Sensory: minimal withdrawal to pain x 4 ext There is a bilateral plantar flexion response. Cerebellar examination cannot assess due to her current condition (Maya Schreiber) She appears more lethargic, encephalopathic today. Followed simple commands in [place]ian. Oriented to name only. Cranial nerve examination: pupils to be equal, round and reactive to light. Neck is soft and supple Motor: grossly moved all four ext to command, cannot assess detail exam due to clinical condition Sensory: minimal withdrawal to pain x 4 ext here is a bilateral plantar flexion response. Cerebellar examination cannot assess due to her current condition (Jose L Taveras MD) Medications Current Medications Current Medications Medications (Trade) Dose Ordered Sig/[place] Route PRN Reason Start Time Stop Time Status Last Admin Dose Admin Acetaminophen (Tylenol) 650 mg Q4H PRN PO TEMP > 100.4 03/09/17 17:00 Ondansetron HCl (Zofran Inj) 4 mg Q6H PRN IVP NAUSEA OR VOMITING 03/09/17 17:00 03/10/17 20:38 Metoclopramide HCl (Reglan Inj) 5 mg Q6H PRN IV PUSH NAUSEA OR VOMITING 03/09/17 17:00 Acetaminophen (Tylenol) 650 mg Q6H PRN PO PAIN SCALE 1 TO 2 03/09/17 17:00 Oxycodone/ Acetaminophen (Percocet 5-325 Mg) 1 tab Q6H PRN PO PAIN SCALE 3 TO 5 03/09/17 17:00 03/11/17 05:30 Oxycodone/ Acetaminophen (Percocet 10-325 Mg) 1 tab Q6H PRN PO PAIN SCALE 6 TO 10 03/09/17 17:00 03/10/17 20:24 Morphine Sulfate (Morphine Inj) 2 mg Q3H PRN IV PUSH Pain 3-5; if unable to take PO 03/09/17 17:00 Morphine Sulfate (Morphine Inj) 4 mg Q3H PRN IV PUSH Pain 6-10;if unable to take PO 03/09/17 17:00 Morphine Sulfate (Morphine Inj) 4 mg Q1H PRN IV PUSH PAIN SCALE 7-10 (INTRACTABLE) 03/09/17 17:00 Morphine Sulfate (Morphine Inj) 4 mg Q3H PRN IV PUSH BREAKTHROUGH PAIN 03/09/17 17:00 03/11/17 08:26 Naloxone HCl (Narcan Inj) 0.4 mg UNSCH PRN IV PUSH SEE LABEL COMMENTS 03/09/17 17:00 Senna/Docusate Sodium (Lara-Colace) 1 tab BID PO 03/09/17 21:00 03/13/17 09:01 Magnesium Hydroxide (Milk Of Magnesia Liq) 30 ml Q12H PRN PO Mild constipation 03/09/17 17:00 Sennosides (Senokot) 17.2 mg Q12H PRN PO Moderate constipation 03/09/17 17:00 Bisacodyl (Dulcolax Supp) 10 mg DAILY PRN RECTAL SEVERE CONSITIPATION 03/09/17 17:00 Lactulose (Lactulose Liq) 30 ml DAILY PRN PO SEVERE CONSITIPATION 03/09/17 17:00 Sodium Chloride (NS Flush) 2 ml UNSCH PRN IV FLUSH FLUSH AFTER USING IV ACCESS 03/09/17 17:15 Sodium Chloride (NS Flush) 2 ml BID IV FLUSH 03/09/17 21:00 03/13/17 08:57 Diltiazem HCl 125 mg/Sodium Chloride 125 ml @ 5 mls/hr TITRATE PRN IV Tachycardia 03/09/17 17:15 Pantoprazole Sodium (Protonix) 40 mg DAILY PO 03/10/17 09:00 03/11/17 08:26 Amlodipine Besylate (Norvasc) 5 mg DAILY PO 03/10/17 18:00 03/13/17 08:57 Lorazepam (Ativan Inj) 0.5 mg Q8HR PRN IV PUSH anxiety 03/11/17 14:00 03/11/17 22:18 Levetriacetam 500 mg/Sodium Chloride 105 ml @ 420 mls/hr Q6H IV 03/12/17 09:00 03/13/17 08:57 Methimazole (Tapazole) 10 mg Q8HR PO 03/12/17 14:00 03/13/17 06:07 Sodium Chloride 38.5 meq/Sterile Water 1,009.625 ml @ 84 mls/hr Q12H2M IV 03/12/17 11:00 03/13/17 03:05 Potassium Chloride 100 ml @ 50 mls/hr Q2H PRN IV For Potassium 2.8 - 3.2 mEq/L 03/12/17 11:15 Potassium Chloride 100 ml @ 50 mls/hr Q2H PRN IV For Potassium 2.8 - 3.2 mEq/L 03/12/17 11:15 Potassium Bicarb/ Potassium Chloride (K-Lyte Cl Eff) 50 meq UNSCH PRN PO For Potassium 3.3 - 3.5 mEq/L 03/12/17 11:15 Potassium Chloride 100 ml @ 25 mls/hr UNSCH PRN IV For Potassium 3.3 - 3.5 mEq/L 03/12/17 11:15 Potassium Chloride 100 ml @ 50 mls/hr Q2H PRN IV For Potassium 3.3 - 3.5 mEq/L 03/12/17 11:15 Magnesium Sulfate 4 gm/Sodium Chloride 100 ml @ 50 mls/hr UNSCH PRN IV For Magnesium 0.9 - 1.1 mg/dL 03/12/17 11:15 Magnesium Oxide (Mag-Ox) 800 mg UNSCH PRN PO For Magnesium 1.2 - 1.6 mg/dL 03/12/17 11:15 Magnesium Sulfate 2 gm/Sodium Chloride 100 ml @ 50 mls/hr UNSCH PRN IV For Magnesium 1.2 - 1.6 mg/dL 03/12/17 11:15 Potassium Phosphate (K-Phos) 2,000 mg Q4H PRN PO For Phosphorus < 2.5 mg/dL 03/12/17 11:15 Sodium Phosphate 30 mmol/Sodium Chloride 250 ml @ 42 mls/hr UNSCH PRN IV For Phosphorus < 2.5 mg/dL 03/12/17 11:15 Potassium Phosphate (K-Phos) 2,000 mg UNSCH PRN PO/TUBE SEE LABEL COMMENTS 03/12/17 11:15 Potassium Phosphate 30 mmol/ Sodium Chloride 260 ml @ 42 mls/hr UNSCH PRN IV SEE LABEL COMMENTS 03/12/17 11:15 Propranolol HCl (Inderal) 20 mg Q8HR PO 03/12/17 14:00 03/12/17 21:44 Water (Free Water) VOLUME: 200 ML Q6HR G-TUBE 03/12/17 18:00 03/13/17 06:07 (Maya Schreiber) Medical Decision Making MDM Remarks 81 y/o female with Subdural hematoma, she has a known subdural hematoma, CT of the head shows subdural collection with acute and subacute components Atrial fibrillation with rapid ventricular response (Maya Schreiber) Plan Plan Remarks cont nonsurgical mgt serial neuro checks Neurology following (Maya Schreiber) Attending Statement Continue nonoperATIVE TREATMENT The exam, history, and the medical decision-making described in the above note were completed with the assistance of the mid-level provider. I reviewed and agree with the findings presented. I attest that I had a [id number] encounter with the patient on the same day, and personally performed and documented my assessment and findings in the medical record. (Jose L Taveras MD) Maya Schreiber Mar 13, 2017 12:06 Jose L Taveras MD Mar 14, 2017 13:52
--- NOTE | 2017-03-13 17:59 | HHI.HCPN ---
Reason for visit a. To assist with evaluation and management of symptoms including: Debility. b. To assist medical decision maker(s) with: better understanding of current medical conditions; weighing benefits/burdens of medical treatment options; making medical treatment decisions. . Subjective/Interval History Palliative care reconsulted today to assist w clarification of goals of treatment. Pt known to palliative, seen 03/10, will continue to follow and assist. Stable over the weekend. Has Dobbhoff in place tolerating tube feedings. Having bowel movements. KUB obtained 03/12 negative for obstruction. Status post MRI 03/12 no acute process identified, stable subdural collection along the left frontoparietal lobe which is both subacute and acute components and measures 11 mm in greatest width. Diffuse cerebral atrophy. s/p thyroid ultrasound, 9 mm nodule identified not clear if this is parathyroid or thyroid nodule. EEG 03/11 = abnormal, moderate encephalopathy. Labs are stable. Vital signs stable on room air. [facility]. Nursing reports patient more lethargic today, per ST-patient with limited ability to participate due to lethargy.(Brain imaging yesterday stable) patient has not received any opiates since 03/11. Nursing tells me patient with periods of more alertness started today though apparently less interactive than prior days. Patient seen in room no visitors present. She is awake watching television, she tracks examiner. I spoke a few simple questions to her in Tajik , her voice is very soft, hoarse she does not tell me her name. She does follow simple commands to move feet, hands stick out tongue. She is not able to state her date of or where she is at. When asked about pain she indicates her stomach, nausea. + Appears to be passing flatus during exam. Possible she may have some abdominal cramping. Discussed with nursing,she will follow-up patient does have prn Zofran available. Advance Directives Living Will: Never completed Health Care Surrogate: Copy in medical record Advance Directive Specifics Date completed: 03/10/2017. Health Care Surrogate(s): Patient has designated her niece Krystin Matthew as primary healthcare surrogate, alternate surrogate is sarah Matthew. . Objective Vital Signs Date Time Temp Pulse Resp B/P (MAP) Pulse Ox O2 Delivery O2 Flow Rate FiO2 03/13/17 12:00 98.4 64 18 143/64 (90) 100 03/13/17 12:00 64 03/13/17 10:00 66 03/13/17 08:09 100 03/13/17 08:00 97.8 60 20 104/48 (66) 100 03/13/17 08:00 60 03/13/17 07:00 100 Room Air 03/13/17 06:00 59 03/13/17 04:00 97.3 65 24 137/62 (87) 100 03/13/17 04:00 65 03/13/17 02:00 62 03/13/17 00:00 97.8 67 20 134/62 (86) 100 03/13/17 00:00 67 03/12/17 22:00 83 03/12/17 21:05 100 21 03/12/17 20:00 99.0 70 18 150/67 (94) 100 03/12/17 20:00 77 03/12/17 19:00 100 Room Air Intake & Output 03/13/17 03/13/17 07:00 19:00 Intake Total 1870 ml Balance 1870 ml IV Total 1278 ml Tube Feeding 92 ml Tube Irrigant 100 ml Other 400 ml # Bowel Movements 2 Physical Exam CONSTITUTIONAL/GENERAL: This is an elderly, cachectic female resting in bed in no acute distress. Patient appears younger than stated age. TUBES/LINES/DRAINS: PIV's upper extremities, soft restraints bilateral wrist, Dobbhoff right nare, SCDs EYES: Pupils equal and round and reactive. Extraocular motions intact. No scleral icterus. No injection or drainage. ENT: Hearing appears normal. Nose without bleeding or purulent drainage. Moist oral mucosa NECK: Trachea midline. Supple, nontender. CARDIOVASCULAR: Irregular rate and rhythm without murmur. No JVD. Peripheral pulses symmetric. RESPIRATORY/CHEST: Symmetric, unlabored respirations. On room air. Clear to auscultation. Breath sounds equal bilaterally. N GASTROINTESTINAL: Abdomen soft, flat, non-tender, nondistended. No guarding. Bowel sounds normoactive. + Flatus. GENITOURINARY: Without palpable bladder distension. MUSCULOSKELETAL: Extremities without clubbing, cyanosis, or edema. Muscular atrophy to all 4 extremities. NEUROLOGICAL: Awake and alert--she does not answer questions to name, date of or location. She does answer yes to pain, points to stomach and rubs her stomach. She follows very simple commands. She moves all 4 extremities with generalized weakness. PSYCHIATRIC: Lethargic, no apparent anxiety or distress . Diagnostic Tests Laboratory Laboratory Tests Test 03/11/17 00:00 03/11/17 04:50 03/11/17 18:33 03/11/17 22:32 Blood Urea Nitrogen 19 MG/DL (7-18) 20 MG/DL (7-18) 20 MG/DL (7-18) 22 MG/DL (7-18) Creatinine 0.36 MG/DL (0.50-1.00) 0.34 MG/DL (0.50-1.00) 0.49 MG/DL (0.50-1.00) 0.43 MG/DL (0.50-1.00) Random Glucose 106 MG/DL (74-106) 81 MG/DL (74-106) 74 MG/DL (74-106) 82 MG/DL (74-106) Calcium Level 8.3 MG/DL (8.5-10.1) 8.8 MG/DL (8.5-10.1) 9.1 MG/DL (8.5-10.1) 8.7 MG/DL (8.5-10.1) Sodium Level 162 MEQ/L (136-145) 163 MEQ/L (136-145) 161 MEQ/L (136-145) 163 MEQ/L (136-145) Potassium Level 3.0 MEQ/L (3.5-5.1) 3.0 MEQ/L (3.5-5.1) 3.1 MEQ/L (3.5-5.1) 3.0 MEQ/L (3.5-5.1) Chloride Level 124 MEQ/L (98-107) 124 MEQ/L (98-107) 124 MEQ/L (98-107) 126 MEQ/L (98-107) Carbon Dioxide Level 30.6 MEQ/L (21.0-32.0) 29.5 MEQ/L (21.0-32.0) 29.6 MEQ/L (21.0-32.0) 26.7 MEQ/L (21.0-32.0) Anion Gap 7 MEQ/L (5-15) 10 MEQ/L (5-15) 7 MEQ/L (5-15) 10 MEQ/L (5-15) Estimat Glomerular Filtration Rate 173 ML/MIN (>89) 185 ML/MIN (>89) 121 ML/MIN (>89) 141 ML/MIN (>89) Test 03/12/17 07:03 03/12/17 15:10 03/12/17 15:20 03/12/17 16:45 White Blood Count 8.7 TH/MM3 (4.0-11.0) Red Blood Count 3.18 MIL/MM3 (4.00-5.30) Hemoglobin 10.0 GM/DL (11.6-15.3) Bedside Hemoglobin 9.5 G/DL (11.6-15.3) Hematocrit 30.4 % (35.0-46.0) Bedside Hematocrit 28.0 % (35.0-46.0) Mean Corpuscular Volume 95.4 FL (80.0-100.0) Mean Corpuscular Hemoglobin 31.5 PG (27.0-34.0) Mean Corpuscular Hemoglobin Concent 33.0 % (32.0-36.0) Red Cell Distribution Width 15.3 % (11.6-17.2) Platelet Count 295 TH/MM3 (150-450) Mean Platelet Volume 8.2 FL (7.0-11.0) Neutrophils (%) (Auto) 61.4 % (16.0-70.0) Lymphocytes (%) (Auto) 27.7 % (9.0-44.0) Monocytes (%) (Auto) 9.4 % (0.0-8.0) Eosinophils (%) (Auto) 1.2 % (0.0-4.0) Basophils (%) (Auto) 0.3 % (0.0-2.0) Neutrophils # (Auto) 5.3 TH/MM3 (1.8-7.7) Lymphocytes # (Auto) 2.4 TH/MM3 (1.0-4.8) Monocytes # (Auto) 0.8 TH/MM3 (0-0.9) Eosinophils # (Auto) 0.1 TH/MM3 (0-0.4) Basophils # (Auto) 0.0 TH/MM3 (0-0.2) CBC Comment DIFF FINAL Differential Comment Prothrombin Time 13.7 SEC (9.8-11.6) Prothromb Time International Ratio 1.4 RATIO Activated Partial Thromboplast Time 22.4 SEC (24.3-30.1) Fibrinogen 298 mg/dL (227-377) Bedside Sodium 165 MMOL/L (137-144) Blood Urea Nitrogen 25 MG/DL (7-18) Creatinine 0.39 MG/DL (0.50-1.00) Random Glucose 65 MG/DL (74-106) Total Protein 6.6 GM/DL (6.4-8.2) Albumin 1.9 GM/DL (3.4-5.0) Calcium Level 8.6 MG/DL (8.5-10.1) Alkaline Phosphatase 77 U/L (45-117) Aspartate Amino Transf (AST/SGOT) 27 U/L (15-37) Alanine Aminotransferase (ALT/SGPT) 11 U/L (10-53) Total Bilirubin 0.4 MG/DL (0.2-1.0) Sodium Level 165 MEQ/L (136-145) 163 MEQ/L (136-145) Potassium Level 3.2 MEQ/L (3.5-5.1) Chloride Level 126 MEQ/L (98-107) Carbon Dioxide Level 28.9 MEQ/L (21.0-32.0) Bedside Potassium 3.1 MMOL/L (3.6-5.0) Bedside Chloride 122 MMOL/L (102-111) Anion Gap 10 MEQ/L (5-15) Bedside Blood Urea Nitrogen 21 MG/DL (5-21) Bedside Creatinine 0.5 MG/DL (0.6-1.3) Estimat Glomerular Filtration Rate 158 ML/MIN (>89) Bedside Glucose 69 MG/DL (68-110) Total Creatine Kinase 57 U/L (26-192) Troponin I 0.15 NG/ML (0.02-0.05) 0.23 NG/ML (0.02-0.05) Serum Osmolality 344 MOSM/KG (275-295) Urine Osmolality 554 MOSM/KG (300-1300) Urine Random Sodium 109 MEQ/L Test 03/12/17 21:04 03/13/17 02:00 03/13/17 10:10 03/13/17 11:21 Sodium Level 155 MEQ/L (136-145) 150 MEQ/L (136-145) 146 MEQ/L (136-145) Troponin I 0.11 NG/ML (0.02-0.05) Free Triiodothyronine (T3) pg/dL 7.84 PG/ML (2.18-3.98) White Blood Count 10.1 TH/MM3 (4.0-11.0) Red Blood Count 2.90 MIL/MM3 (4.00-5.30) Hemoglobin 9.3 GM/DL (11.6-15.3) Hematocrit 27.8 % (35.0-46.0) Mean Corpuscular Volume 95.9 FL (80.0-100.0) Mean Corpuscular Hemoglobin 32.1 PG (27.0-34.0) Mean Corpuscular Hemoglobin Concent 33.5 % (32.0-36.0) Red Cell Distribution Width 15.1 % (11.6-17.2) Platelet Count 258 TH/MM3 (150-450) Mean Platelet Volume 8.6 FL (7.0-11.0) Neutrophils (%) (Auto) 66.0 % (16.0-70.0) Lymphocytes (%) (Auto) 23.6 % (9.0-44.0) Monocytes (%) (Auto) 7.7 % (0.0-8.0) Eosinophils (%) (Auto) 2.4 % (0.0-4.0) Basophils (%) (Auto) 0.3 % (0.0-2.0) Neutrophils # (Auto) 6.6 TH/MM3 (1.8-7.7) Lymphocytes # (Auto) 2.4 TH/MM3 (1.0-4.8) Monocytes # (Auto) 0.8 TH/MM3 (0-0.9) Eosinophils # (Auto) 0.2 TH/MM3 (0-0.4) Basophils # (Auto) 0.0 TH/MM3 (0-0.2) CBC Comment DIFF FINAL Differential Comment Blood Urea Nitrogen 13 MG/DL (7-18) Creatinine 0.28 MG/DL (0.50-1.00) Random Glucose 78 MG/DL (74-106) Total Protein 6.3 GM/DL (6.4-8.2) Albumin 1.7 GM/DL (3.4-5.0) Calcium Level 8.1 MG/DL (8.5-10.1) Phosphorus Level 2.2 MG/DL (2.5-4.9) Magnesium Level 1.3 MG/DL (1.5-2.5) Alkaline Phosphatase 67 U/L (45-117) Aspartate Amino Transf (AST/SGOT) 29 U/L (15-37) Alanine Aminotransferase (ALT/SGPT) 14 U/L (10-53) Total Bilirubin 0.5 MG/DL (0.2-1.0) Potassium Level 4.6 MEQ/L (3.5-5.1) Chloride Level 115 MEQ/L (98-107) Carbon Dioxide Level 28.8 MEQ/L (21.0-32.0) Anion Gap 6 MEQ/L (5-15) Estimat Glomerular Filtration Rate 231 ML/MIN (>89) Nasal Screen MRSA (PCR) MRSA NOT DETECTED (NOT Result Diagram: 03/13/17 0200 03/13/17 1121 Imaging Last Impressions Thyroid Ultrasound 03/12/17 0000 Signed Impressions: Service Date/Time: Sunday, March 12, 2017 17:54 - CONCLUSION: 1. 9 mm nodule in the mid right thyroid gland along the posterior margin. It is uncertain whether this represents a thyroid or parathyroid nodule. 2. Mild heterogeneous appearance of the thyroid gland 3. No other discrete masses. Killian Lo MD Neck CTA 03/12/17 0000 Signed Impressions: Service Date/Time: Sunday, March 12, 2017 08:22 - CONCLUSION: No acute disease. Abdiel Lerma MD Head CTA 03/12/17 0000 Signed Impressions: Service Date/Time: Sunday, March 12, 2017 08:22 - CONCLUSION: No focal stenosis, occlusion or aneurysm formation. Abdiel Lerma MD Head CT 03/12/17 0000 Signed Impressions: Service Date/Time: Sunday, March 12, 2017 07:43 - CONCLUSION: 1. Stable subdural collection along the left frontoparietal lobe which is both subacute and acute components and measures 11 mm in greatest width. 2. Diffuse cerebral atrophy. 3. No acute infarct is noted. Abdiel Lerma MD Chest X-Ray 03/12/17 0000 Signed Impressions: Service Date/Time: Sunday, March 12, 2017 07:04 - CONCLUSION: 1. Stable cardiomegaly. 2. No acute focal pulmonary infiltrate or pulmonary vascular congestion. Abdiel Lerma MD Brain MRI 03/12/17 0000 Signed Impressions: Service Date/Time: Sunday, March 12, 2017 09:46 - CONCLUSION: 1. No acute infarct, acute intracranial hemorrhage or enhancing mass lesion. 2. Stable subacute left frontal parietal and temporal subdural hematoma. 3. Cerebral atrophy. 4. Mild periventricular and subcortical white matter small vessel ischemic changes bilaterally. Abdiel Lerma MD Abdomen X-Ray 03/12/17 0000 Signed Impressions: Service Date/Time: Sunday, March 12, 2017 11:33 - CONCLUSION: No evidence of obstruction. Dobbhoff feeding tube in the fundus of the stomach Franki Winkler MD Carotid Artery Ultrasound 03/11/17 0000 Signed Impressions: Service Date/Time: Saturday, March 11, 2017 19:37 - CONCLUSION: 1. Mild bilateral carotid plaque 2. No evidence of hemodynamically significant stenosis. 3. Antegrade flow both vertebral arteries. Killian Lo MD Assessment and Plan Disease Oriented Problem List: (1) Atrial fibrillation with RVR (2) Electrolyte abnormality (3) Nausea (4) Subdural hematoma (5) Cachexia (6) Physical deconditioning Symptom Scale: (1) Debility 0-10 Scale: Unable to quantify Comment: Progressive. (2) Abdominal pain 0-10 Scale: Unable to quantify Comment: Unclear etiology. Pertinent Non-Medical Issues Psychosocial: Patient originally from [facility]. Moved to [place] 15 years ago. Patient is , 5 years ago. Patient has an adult daughter , Elle who is 47 years old with Down syndrome. 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 Primary language is Tajik. Spiritual: Protestant luisa. Legal: Advance directives completed. Ethical issues impacting care: No ethical issues identified. . Important Contacts Niece/HCS Krystin Matthew , . . Prognosis Mrs. Matthew is an 81 female with a medical history of Alzheimer's dementia, diabetes mellitus, hypertension and acute-subacute subdural hematoma. Patient presented to emergency room via EMS on 03/09/17 from longterm facility for evaluation of near syncopal episode and nausea vomiting. Patient with multiple recent acute hospitalizations, this is patient's seventh acute hospitalization in the past 4 months. Patient in and out longterm facilities, reporting progressive physical deconditioning, weight loss. Patient is cachectic, frail. Patient at high risk for further complications, continue decline and . . Code Status: No Code Plan * CODE STATUS: No code. DNR/DNI. This has been confirmed with patient's niece/ MIL Mcclelland. Community DNR left at bedside for completion. Will follow-up. * HEALTHCARE DECISION-MAKING: Patient with baseline Alzheimer's dementia. Alert and oriented x self and situation, intermittent confusion -easily reoriented. Mostly coherent conversation conducted in her [place] language [place]. Patient with a fair understanding of her progressive decline. Has designated her niece Krystin Matthew as primary healthcare surrogate decision maker, alternate surrogate is step son Abdiel Matthew. Given patient's intermittent confusion, palliative care recommends shared decision-making with HCS/leatha Mcclelland as well as providing patient with Tajik interpreting services -Patient communicates best in her [place] language. * GOALS OF CARE: Per initial palliative consultation 03/10/17: Patient and niece/ MIL Mcclelland electing to maximize medical management short of NO code. Patient and family wishing to discharge to longterm facility for physical straightening. Shared concerns of patient's progressive decline as evidenced by multiple acute hospitalizations within the past 4 months, multiple comorbidities, cachexia/failure to thrive and ongoing acute events. Patient's ultimate goal is to return home for independent living, shared concerns given her progressive decline and higher level of needs. Patient resides with adult daughter who has special needs secondary to Down syndrome. Reviewed with niece that patient will likely require long-term placement. Patient and family receptive to ongoing goals of care conversation. 03/13/17-patient seen in follow-up, reconsulted today. Slightly more lethargic today though otherwise no significant changes, stable. Will continue to assist patient, healthcare surrogate with updates, clarification of goals as clinical course evolves. * SYMPTOMS: =Debility: Progressive. Patient with multiple acute hospitalizations in the past 4 months. Has been receiving rehabilitation at longterm facility. Patient is cachectic, profound physical deconditioning with history of multiple falls. Likely to continue to worsen. Patient and family requesting discharge to longterm facility for physical straightening. * = Abdominal pain: Unclear etiology. Patient with similar complaints on prior hospitalizations. GI has been previously consulted in February, -No acute findings. Patient again indicates abdominal pain and possible nausea today during exam. Passing flatus, KUB negative for obstruction. Tolerating tube feeding. No apparent pathology. Would avoid use of opiates as this may further alter patient's mental status, additionally would further slow GI motility. * Palliative care will continue to follow-up for further clarifications of goals of care as patient's clinical course continues to evolve. . Attestation To help prompt me to consider important information that might be impacting today's encounter and assessment, information from prior notes written by myself or my colleagues may have been "brought forward" into today's note. My signature on this note, however, is an attestation that I personally performed the exam, history, and/or decision-making noted today, and, unless otherwise indicated, the interactions with patient, family, and staff as well as the review of records all occurred today. I also attest that the listed assessment and stated plan reflect my best clinical judgment today based on the combination of historical information, prior notes, and today's exam/ interactions. When time spent is documented, it refers only to time spent today by the signer, or if indicated, combined time spent today by collaborating physician/nurse practitioner. Lyn Mcgraw Mar 13, 2017 17:59
--- NOTE | 2017-03-13 20:18 | HHI.PR ---
Review/Management Diagnosis recent TIA vs focal sz left subdural hematoma Plan unable to anticoagulate due to subdural hematome continue keppra for possibility of focal sz. Diagnosis/Plan: Subjective Subjective Comments No acute events reported Active Medications Current Medications Medications (Trade) Dose Ordered Sig/Jordan Route Start Time Stop Time Status Last Admin (Tylenol) 650 mg Q4H PRN PO 03/09/17 17:00 (Zofran Inj) 4 mg Q6H PRN IVP 03/09/17 17:00 03/10/17 20:38 (Reglan Inj) 5 mg Q6H PRN IV PUSH 03/09/17 17:00 (Tylenol) 650 mg Q6H PRN PO 03/09/17 17:00 (Percocet 5-325 Mg) 1 tab Q6H PRN PO 03/09/17 17:00 03/11/17 05:30 (Percocet 10-325 Mg) 1 tab Q6H PRN PO 03/09/17 17:00 03/10/17 20:24 (Morphine Inj) 2 mg Q3H PRN IV PUSH 03/09/17 17:00 (Morphine Inj) 4 mg Q3H PRN IV PUSH 03/09/17 17:00 (Morphine Inj) 4 mg Q1H PRN IV PUSH 03/09/17 17:00 (Morphine Inj) 4 mg Q3H PRN IV PUSH 03/09/17 17:00 03/11/17 08:26 (Narcan Inj) 0.4 mg UNSCH PRN IV PUSH 03/09/17 17:00 (Lara-Colace) 1 tab BID PO 03/09/17 21:00 03/13/17 09:01 (Milk Of Magnesia Liq) 30 ml Q12H PRN PO 03/09/17 17:00 (Senokot) 17.2 mg Q12H PRN PO 03/09/17 17:00 (Dulcolax Supp) 10 mg DAILY PRN RECTAL 03/09/17 17:00 (Lactulose Liq) 30 ml DAILY PRN PO 03/09/17 17:00 (NS Flush) 2 ml UNSCH PRN IV FLUSH 03/09/17 17:15 (NS Flush) 2 ml BID IV FLUSH 03/09/17 21:00 03/13/17 20:08 Diltiazem HCl 125 mg/Sodium Chloride 125 ml @ 5 mls/hr TITRATE PRN IV 03/09/17 17:15 (Protonix) 40 mg DAILY PO 03/10/17 09:00 03/11/17 08:26 (Norvasc) 5 mg DAILY PO 03/10/17 18:00 03/13/17 08:57 (Ativan Inj) 0.5 mg Q8HR PRN IV PUSH 03/11/17 14:00 03/11/17 22:18 Levetriacetam 500 mg/Sodium Chloride 105 ml @ 420 mls/hr Q6H IV 03/12/17 09:00 03/13/17 20:07 (Tapazole) 10 mg Q8HR PO 03/12/17 14:00 03/13/17 16:19 Sodium Chloride 38.5 meq/Sterile Water 1,009.625 ml @ 84 mls/hr Q12H2M IV 03/12/17 11:00 03/13/17 03:05 Potassium Chloride 100 ml @ 50 mls/hr Q2H PRN IV 03/12/17 11:15 Potassium Chloride 100 ml @ 50 mls/hr Q2H PRN IV 03/12/17 11:15 (K-Lyte Cl Eff) 50 meq UNSCH PRN PO 03/12/17 11:15 Potassium Chloride 100 ml @ 25 mls/hr UNSCH PRN IV 03/12/17 11:15 Potassium Chloride 100 ml @ 50 mls/hr Q2H PRN IV 03/12/17 11:15 Magnesium Sulfate 4 gm/Sodium Chloride 100 ml @ 50 mls/hr UNSCH PRN IV 03/12/17 11:15 (Mag-Ox) 800 mg UNSCH PRN PO 03/12/17 11:15 Magnesium Sulfate 2 gm/Sodium Chloride 100 ml @ 50 mls/hr UNSCH PRN IV 03/12/17 11:15 (K-Phos) 2,000 mg Q4H PRN PO 03/12/17 11:15 Sodium Phosphate 30 mmol/Sodium Chloride 250 ml @ 42 mls/hr UNSCH PRN IV 03/12/17 11:15 (K-Phos) 2,000 mg UNSCH PRN PO/TUBE 03/12/17 11:15 Potassium Phosphate 30 mmol/ Sodium Chloride 260 ml @ 42 mls/hr UNSCH PRN IV 03/12/17 11:15 (Inderal) 20 mg Q8HR PO 03/12/17 14:00 03/13/17 16:19 (Free Water) VOLUME: 200 ML Q6HR G-TUBE 03/12/17 18:00 03/13/17 17:27 Allergies Allergies Coded Allergies ciprofloxacin (Verified Allergy, Severe, RASH, VOMITING, 02/14/17) Review of Systems All other ROS: ROS reviewed as documented in chart Exam I&O / VS 03/13/17 03/13/17 03/14/17 15:00 23:00 07:00 Intake Total 648 ml Balance 648 ml Tube Feeding 388 ml Tube Irrigant 60 ml Other 200 ml # Voids 3 # Bowel Movements 2 Vital Signs Date Time Temp Pulse Resp B/P (MAP) Pulse Ox O2 Delivery O2 Flow Rate FiO2 03/13/17 20:13 100 21 03/13/17 19:00 99 Room Air 03/13/17 18:00 74 03/13/17 16:00 98.0 82 22 127/60 (82) 100 03/13/17 16:00 82 03/13/17 12:00 98.4 64 18 143/64 (90) 100 03/13/17 12:00 64 03/13/17 10:00 66 03/13/17 08:09 100 03/13/17 08:00 97.8 60 20 104/48 (66) 100 03/13/17 08:00 60 03/13/17 07:00 100 Room Air 03/13/17 06:00 59 03/13/17 04:00 97.3 65 24 137/62 (87) 100 03/13/17 04:00 65 03/13/17 02:00 62 03/13/17 00:00 97.8 67 20 134/62 (86) 100 03/13/17 00:00 67 03/12/17 22:00 83 03/12/17 21:05 100 21 Exam Comments more alert, follow commands CN--mild right umn 7 palsey, perrl, eom intact MOTOR 4/5 RUE and LUE Objective Radiology Results MRI stable left sdh. No acute stroke Micro and Labs Laboratory Tests Test 03/12/17 21:04 03/13/17 02:00 03/13/17 10:10 03/13/17 11:21 Sodium Level 155 150 146 Troponin I 0.11 Free Triiodothyronine (T3) pg/dL 7.84 White Blood Count 10.1 Red Blood Count 2.90 Hemoglobin 9.3 Hematocrit 27.8 Mean Corpuscular Volume 95.9 Mean Corpuscular Hemoglobin 32.1 Mean Corpuscular Hemoglobin Concent 33.5 Red Cell Distribution Width 15.1 Platelet Count 258 Mean Platelet Volume 8.6 Neutrophils (%) (Auto) 66.0 Lymphocytes (%) (Auto) 23.6 Monocytes (%) (Auto) 7.7 Eosinophils (%) (Auto) 2.4 Basophils (%) (Auto) 0.3 Neutrophils # (Auto) 6.6 Lymphocytes # (Auto) 2.4 Monocytes # (Auto) 0.8 Eosinophils # (Auto) 0.2 Basophils # (Auto) 0.0 CBC Comment DIFF FINAL Differential Comment Blood Urea Nitrogen 13 Creatinine 0.28 Random Glucose 78 Total Protein 6.3 Albumin 1.7 Calcium Level 8.1 Phosphorus Level 2.2 Magnesium Level 1.3 Alkaline Phosphatase 67 Aspartate Amino Transf (AST/SGOT) 29 Alanine Aminotransferase (ALT/SGPT) 14 Total Bilirubin 0.5 Potassium Level 4.6 Chloride Level 115 Carbon Dioxide Level 28.8 Anion Gap 6 Estimat Glomerular Filtration Rate 231 Nasal Screen MRSA (PCR) MRSA NOT DETECTED Date/Time Source Procedure Growth Status 03/09/17 15:25 Blood Peripheral Aerobic Blood Culture - Preliminary NO GROWTH IN 4 DAYS Resulted 03/09/17 15:25 Blood Peripheral Anaerobic Blood Culture - Preliminary NO GROWTH IN 4 DAYS Resulted Diagnostic Tests EEG---- generalized slowing with no epileptiform features Maik Strickland MD PhD Mar 13, 2017 20:18
[2017-03-14] VITALS (9 sets, daily range): BP systolic 103–131; BP diastolic 50–62; PULSE 63–97; RESP 20–27; TEMP 97.4–98.6; O2SAT 97–100
[2017-03-14] MEDS: LORazepam 2 MG/ML VIAL IV PUSH PRN (00:03)
[2017-03-14] MEDS: levETIRAcetam INJ 500 MG in SODIUM CHLORIDE 0.9% INJ 100 ML IV SCH ×4 (03:10→22:19)
[2017-03-14] MEDS: FREE WATER G-TUBE SCH ×4 (05:15→22:20)
[2017-03-14] MEDS: PROPRANOLOL HCL 20 MG TAB PO SCH ×3 (05:15→22:18)
[2017-03-14] MEDS: METHIMAZOLE 5 MG TAB PO SCH ×3 (05:28→22:19)
[2017-03-14] MEDS: PANTOPRAZOLE SOD 40 MG DELAYED RELEASE TAB PO SCH (07:51)
[2017-03-14] MEDS: amLODIPine BESYLATE 5 MG TAB PO SCH (07:51)
[2017-03-14] MEDS: DOCUSATE SODIUM 50 MG/SENNA 8.6 MG TAB PO SCH ×2 (07:52→22:19)
[2017-03-14] MEDS: SODIUM CHLORIDE 0.9% FLUSH 10 ML FLUSH IV FLUSH SCH ×2 (07:53→22:19)
[2017-03-14] MEDS: SODIUM CHLORIDE 23.4% INJ 38.5 MEQ in WATER STERILE FOR INJ 1,000 ML IV SCH (12:08)
--- NOTE | 2017-03-14 14:20 | HHI.CCPN ---
Subjective Remarks/Hospital Course 03/12: This is an 81-year-old speaking female. Date of admission 2017. Date of consultation 03/12/2017. Past medical history includes hypothyroidism, hypertension, diabetes and gastroesophageal reflux disease. Patient was admitted February/2017. For evaluation of subdural hematoma. Was evaluated by neurosurgery recommended nonoperative/conservative management. Also has history of a chronic right subdural hygroma and normal pressure hydrocephalus. This hospitalization, admitted for syncopal episode. Workup included neurology consultation. CT brain revealed stable left subdural hematoma 11 mm located no frontal parietal temporal region. This morning, patient acute onset of altered mental status. Transfer to ICU. MRI brain reveals stable left frontal parietal temporal subdural hematoma. EEG has been ordered. Started on levetiracetam 500 mg IV every 6 hours by neurology bleed this is a seizure. Patient is [place]-speaking but following commands appropriately in [place] language. Focal deficits include right upper extremity weakness/pronator drift otherwise unremarkable. Denies chest pain, shortness of breath or abdominal pain. 03/13: Resting in bed. Tolerating tube feeds. Has baseline dementia. Not following commands. 03/14: Awake and alert. Resting in bed. Tolerating tube feeds. Does not follow commands. Has baseline dementia. Stopping quarter normal saline. Objective Vital Signs Date Time Temp Pulse Resp B/P (MAP) Pulse Ox O2 Delivery O2 Flow Rate FiO2 03/14/17 08:00 63 03/14/17 08:00 97.4 25 103/50 (67) 100 03/14/17 07:58 21 03/14/17 07:20 Room Air Intake and Output 03/14/17 03/14/17 03/14/17 07:59 15:59 23:59 Intake Total 600 ml Balance 600 ml Result Diagram: 03/13/17 0200 03/14/17 0847 Imaging Last Impressions Neck CTA 03/12/17 0000 Signed Impressions: Service Date/Time: Sunday, March 12, 2017 08:22 - CONCLUSION: No acute disease. Abdiel Lerma MD Head CTA 03/12/17 0000 Signed Impressions: Service Date/Time: Sunday, March 12, 2017 08:22 - CONCLUSION: No focal stenosis, occlusion or aneurysm formation. Abdiel Lerma MD Head CT 03/12/17 0000 Signed Impressions: Service Date/Time: Sunday, March 12, 2017 07:43 - CONCLUSION: 1. Stable subdural collection along the left frontoparietal lobe which is both subacute and acute components and measures 11 mm in greatest width. 2. Diffuse cerebral atrophy. 3. No acute infarct is noted. Abdiel Lerma MD Chest X-Ray 03/12/17 0000 Signed Impressions: Service Date/Time: Sunday, March 12, 2017 07:04 - CONCLUSION: 1. Stable cardiomegaly. 2. No acute focal pulmonary infiltrate or pulmonary vascular congestion. Abdiel Lerma MD Brain MRI 03/12/17 0000 Signed Impressions: Service Date/Time: Sunday, March 12, 2017 09:46 - CONCLUSION: 1. No acute infarct, acute intracranial hemorrhage or enhancing mass lesion. 2. Stable subacute left frontal parietal and temporal subdural hematoma. 3. Cerebral atrophy. 4. Mild periventricular and subcortical white matter small vessel ischemic changes bilaterally. Abdiel Lerma MD Carotid Artery Ultrasound 03/11/17 0000 Signed Impressions: Service Date/Time: Saturday, March 11, 2017 19:37 - CONCLUSION: 1. Mild bilateral carotid plaque 2. No evidence of hemodynamically significant stenosis. 3. Antegrade flow both vertebral arteries. Killian Lo MD Objective Remarks GENERAL: 81-year-old female, resting in bed in no acute distress SKIN: Warm and dry. HEAD: Atraumatic. Normocephalic. EYES: Pupils equal and round about 3 mm bilaterally and reactive. No scleral icterus. No injection or drainage. ENT: No nasal bleeding or discharge. Mucous membranes pink and moist. NECK: Trachea midline. No JVD. CARDIOVASCULAR: Tachycardia, RR. S1, S2 no S4. Without murmur RESPIRATORY: No accessory muscle use. Clear to auscultation. Breath sounds equal bilaterally. GASTROINTESTINAL: Abdomen soft, non-tender, nondistended. Hepatic and splenic margins not palpable. MUSCULOSKELETAL: Extremities without clubbing, cyanosis, or edema. No obvious deformities. NEUROLOGICAL: Awake and alert. No obvious cranial nerve deficits. Positive right upper extremity weakness 4-5. Positive right pronator drift. 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 CT brain revealed stable left frontal parietal temporal subdural hematoma with possible acute and subacute components CTA brain and neck showed no signs of occlusive disease EEG done. Started on levetiracetam 500 mg IV every [address] Strickland Neurosurgery evaluation - conservative therapy no intervention at this time Patient is on oxycodone/acetaminophen 5-10/325 one tab every 6 hours as needed pain with morphine sulfate 4 mg IV every hour when necessary breakthrough through 10 PT/OT/ST evaluate and treat CV: Sinus tachycardia History of SVT Elevated troponin Patient is currently on propranolol 20 mg every 8 hours Previously on metoprolol 25 mg twice a day Continue amlodipine 5 mg daily Echocardiogram revealed EF 65-70%. Mild TR/ME. Pulmonary arterial pressures 55 -60 mmHg Resp: Nasal cannula to maintain saturations greater than equal to 92% Incentive spirometry while awake GI: Hypoalbuminemia Gastroesophageal reflux disease History of gastric ulcer Heart healthy diet Continue pantoprazole 40 mg by mouth daily/home medication Docusate sodium/senna 1 tablet twice a day for bowel regimen : No indication for Yip catheter Endo: Hyperthyroidism Continue methimazole but increased to 5-10 mg 3 times a day Thyroid ultrasound TSI was elevated 440. Likely Graves' disease Keep you antibodies/thyroglobulin pending TSH 0.005 on admission. Elevated T44.4 Sliding-scale insulin Novulog with Accu-Cheks before meals/at bedtime to maintain euglycemia/low regimen Renal: Monitor urine output Accurate I's and Os Currently one quarter normal saline at 84 cc an hour with free water 200 cc every 6 hours Recheck BMP in a.m. Heme: Normocytic anemia Monitor CBC daily. Follow trends ID: Monitor for infection FEN: Hypernatremia Hypokalemia Pending serum and urine osm and urine sodium Receiving KCl 30 mEq IV and a total of 80 mEq by tube today Initiate tube feedings see orders with vital 1.5 goal 45 cc an hour MSK: PT/OT evaluate and treat Access - Utilize peripheral IV. Central line if indicated Prophylaxis - GI - pantoprazole - DVT - SCD/holding pharmacological prophylaxis until okayed with neurosurgery Discussed with Dr. Taveras from neurosurgery on 03/13. Okay to transfer out of ICU , no neurosurgical intervention planned. We will consult palliative care to assist with deciding goals of therapy. Transfer to hospitalist service for further medical management. Critical care will be signing off, please reconsult if needed. Level II consult Narinder Burrows MD Mar 14, 2017 14:20
--- NOTE | 2017-03-14 15:39 | HHI.NSPN ---
(Maya Schreiber) Note Status Status: Progress Note (Maya Schreiber) Interval History Interval History This is-year-old female with a past medical history ofr subdural hematoma, history of SVT, diabetes mellitus, atrial fibrillation. pylori gastritis/peptic ulcer and arterial hypertension who was brought to [place] emergency department for evaluation of a syncopal episode. She currently resides in a [facility] where she was reported to have had a possible syncopal episode. She reportedly had nausea and vomiting as well. On arrival to the emergency department, EKG showed that the patient was in atrial fibrillation with rapid ventricular response, pulse 144. Head CT showed a stable subdural hematoma that has both subacute and acute components without midline shift. Her Chest x-ray negative for acute disease. Her Mental status is at baseline. She is not oriented to place or time. She denies chest pain/shortness of breath. Neurosurgical consultation was requested. 03/13: slightly more lethargic today, but oriented to name in [place] and followed few simple command in [place] Citizen 03/14: patient seen this morning during rounds, Eyes open but not verbalizing, not following commands. (Maya Schreiber) Labs, Micro, & Vital Signs Results Date Time Temp Pulse Resp B/P (MAP) Pulse Ox O2 Delivery O2 Flow Rate FiO2 03/14/17 08:00 63 03/14/17 08:00 97.4 63 25 103/50 (67) 100 03/14/17 07:58 100 21 03/14/17 07:20 100 Room Air 03/14/17 06:00 97 03/14/17 04:00 97.6 67 22 114/54 (74) 99 03/14/17 04:00 67 03/14/17 02:00 68 03/14/17 00:00 80 03/14/17 00:00 97.6 80 27 124/56 (78) 97 03/13/17 22:00 78 03/13/17 20:13 100 21 03/13/17 20:00 98.0 75 22 128/59 (82) 100 03/13/17 20:00 75 03/13/17 19:00 99 Room Air 03/13/17 18:00 74 03/13/17 16:00 98.0 82 22 127/60 (82) 100 03/13/17 16:00 82 03/15/17 06:59 Intake Total 193 ml Balance 193 ml Constitutional Vital Signs Date Time Temp Pulse Resp B/P (MAP) Pulse Ox O2 Delivery O2 Flow Rate FiO2 03/14/17 08:00 63 03/14/17 08:00 97.4 63 25 103/50 (67) 100 03/14/17 07:58 100 21 03/14/17 07:20 100 Room Air 03/14/17 06:00 97 03/14/17 04:00 97.6 67 22 114/54 (74) 99 03/14/17 04:00 67 03/14/17 02:00 68 03/14/17 00:00 80 03/14/17 00:00 97.6 80 27 124/56 (78) 97 03/13/17 22:00 78 03/13/17 20:13 100 21 03/13/17 20:00 98.0 75 22 128/59 (82) 100 03/13/17 20:00 75 03/13/17 19:00 99 Room Air 03/13/17 18:00 74 03/13/17 16:00 98.0 82 22 127/60 (82) 100 03/13/17 16:00 82 03/15/17 06:59 Intake Total 193 ml Balance 193 ml (Maya Schreiber) Physical Exam Ms. Matthew with eyes but does not follow commands. Nonverbal today. No seizure like activities Cranial nerve examination: pupils to be equal. Right supranuclear palsy, Right ptosis. Neck is soft and supple Motor: minimal response to pain x 4 Sensory: minimal withdrawal to pain x 4 ext here is a bilateral plantar flexion response. Cerebellar examination cannot assess due to her current condition (Maya Schreiber) Ms. Mtathew with eyes but does not follow commands. Nonverbal today. No seizure like activities Cranial nerve examination: pupils to be equal. Right supranuclear palsy, Right ptosis. Neck is soft and supple Motor: minimal response to pain Sensory: minimal withdrawal to pain here is a bilateral plantar flexion response. Cerebellar examination cannot assess due to her current condition (Jose L Taveras MD) Medications Current Medications Current Medications Medications (Trade) Dose Ordered Sig/Jordan Route PRN Reason Start Time Stop Time Status Last Admin Dose Admin Acetaminophen (Tylenol) 650 mg Q4H PRN PO TEMP > 100.4 03/09/17 17:00 Ondansetron HCl (Zofran Inj) 4 mg Q6H PRN IVP NAUSEA OR VOMITING 03/09/17 17:00 03/10/17 20:38 Metoclopramide HCl (Reglan Inj) 5 mg Q6H PRN IV PUSH NAUSEA OR VOMITING 03/09/17 17:00 Acetaminophen (Tylenol) 650 mg Q6H PRN PO PAIN SCALE 1 TO 2 03/09/17 17:00 Oxycodone/ Acetaminophen (Percocet 5-325 Mg) 1 tab Q6H PRN PO PAIN SCALE 3 TO 5 03/09/17 17:00 03/11/17 05:30 Oxycodone/ Acetaminophen (Percocet 10-325 Mg) 1 tab Q6H PRN PO PAIN SCALE 6 TO 10 03/09/17 17:00 03/10/17 20:24 Morphine Sulfate (Morphine Inj) 2 mg Q3H PRN IV PUSH Pain 3-5; if unable to take PO 03/09/17 17:00 Morphine Sulfate (Morphine Inj) 4 mg Q3H PRN IV PUSH Pain 6-10;if unable to take PO 03/09/17 17:00 Morphine Sulfate (Morphine Inj) 4 mg Q1H PRN IV PUSH PAIN SCALE 7-10 (INTRACTABLE) 03/09/17 17:00 Morphine Sulfate (Morphine Inj) 4 mg Q3H PRN IV PUSH BREAKTHROUGH PAIN 03/09/17 17:00 03/11/17 08:26 Naloxone HCl (Narcan Inj) 0.4 mg UNSCH PRN IV PUSH SEE LABEL COMMENTS 03/09/17 17:00 Senna/Docusate Sodium (Lara-Colace) 1 tab BID PO 03/09/17 21:00 03/14/17 07:52 Magnesium Hydroxide (Milk Of Magnesia Liq) 30 ml Q12H PRN PO Mild constipation 03/09/17 17:00 Sennosides (Senokot) 17.2 mg Q12H PRN PO Moderate constipation 03/09/17 17:00 Bisacodyl (Dulcolax Supp) 10 mg DAILY PRN RECTAL SEVERE CONSITIPATION 03/09/17 17:00 Lactulose (Lactulose Liq) 30 ml DAILY PRN PO SEVERE CONSITIPATION 03/09/17 17:00 Sodium Chloride (NS Flush) 2 ml UNSCH PRN IV FLUSH FLUSH AFTER USING IV ACCESS 03/09/17 17:15 Sodium Chloride (NS Flush) 2 ml BID IV FLUSH 03/09/17 21:00 03/14/17 07:53 Diltiazem HCl 125 mg/Sodium Chloride 125 ml @ 5 mls/hr TITRATE PRN IV Tachycardia 03/09/17 17:15 Pantoprazole Sodium (Protonix) 40 mg DAILY PO 03/10/17 09:00 03/14/17 07:51 Amlodipine Besylate (Norvasc) 5 mg DAILY PO 03/10/17 18:00 03/14/17 07:51 Lorazepam (Ativan Inj) 0.5 mg Q8HR PRN IV PUSH anxiety 03/11/17 14:00 03/14/17 00:03 Levetriacetam 500 mg/Sodium Chloride 105 ml @ 420 mls/hr Q6H IV 03/12/17 09:00 03/14/17 14:53 Methimazole (Tapazole) 10 mg Q8HR PO 03/12/17 14:00 03/14/17 14:22 Potassium Chloride 100 ml @ 50 mls/hr Q2H PRN IV For Potassium 2.8 - 3.2 mEq/L 03/12/17 11:15 Potassium Chloride 100 ml @ 50 mls/hr Q2H PRN IV For Potassium 2.8 - 3.2 mEq/L 03/12/17 11:15 Potassium Bicarb/ Potassium Chloride (K-Lyte Cl Eff) 50 meq UNSCH PRN PO For Potassium 3.3 - 3.5 mEq/L 03/12/17 11:15 Potassium Chloride 100 ml @ 25 mls/hr UNSCH PRN IV For Potassium 3.3 - 3.5 mEq/L 03/12/17 11:15 Potassium Chloride 100 ml @ 50 mls/hr Q2H PRN IV For Potassium 3.3 - 3.5 mEq/L 03/12/17 11:15 Magnesium Sulfate 4 gm/Sodium Chloride 100 ml @ 50 mls/hr UNSCH PRN IV For Magnesium 0.9 - 1.1 mg/dL 03/12/17 11:15 Magnesium Oxide (Mag-Ox) 800 mg UNSCH PRN PO For Magnesium 1.2 - 1.6 mg/dL 03/12/17 11:15 Magnesium Sulfate 2 gm/Sodium Chloride 100 ml @ 50 mls/hr UNSCH PRN IV For Magnesium 1.2 - 1.6 mg/dL 03/12/17 11:15 03/13/17 23:12 Potassium Phosphate (K-Phos) 2,000 mg Q4H PRN PO For Phosphorus < 2.5 mg/dL 03/12/17 11:15 Sodium Phosphate 30 mmol/Sodium Chloride 250 ml @ 42 mls/hr UNSCH PRN IV For Phosphorus < 2.5 mg/dL 03/12/17 11:15 Potassium Phosphate (K-Phos) 2,000 mg UNSCH PRN PO/TUBE SEE LABEL COMMENTS 03/12/17 11:15 Potassium Phosphate 30 mmol/ Sodium Chloride 260 ml @ 42 mls/hr UNSCH PRN IV SEE LABEL COMMENTS 03/12/17 11:15 Propranolol HCl (Inderal) 20 mg Q8HR PO 03/12/17 14:00 03/14/17 14:22 Water (Free Water) VOLUME: 200 ML Q6HR G-TUBE 03/12/17 18:00 03/14/17 12:00 (Maya Schreiber) Current Medications Current Medications Sodium Chloride (NS Flush) 2 ml UNSCH PRN IV FLUSH FLUSH AFTER USING IV ACCESS ; Start 03/09/17 at 15:00; Stop 03/09/17 at 19:45; Status DC Sodium Chloride 1,000 ml @ 1,000 mls/hr Q1H IV Last administered on 03/09/17at 15:13; Start 03/09/17 at 14:58; Stop 03/09/17 at 15:57; Status DC Diltiazem HCl (Cardizem Inj) 15 mg ONCE ONCE IV Last administered on 03/09/17at 16:16; Start 03/09/17 at 15:45; Stop 03/09/17 at 15:46; Status DC Sodium Chloride 1,000 ml @ 999 mls/hr BOLUS ONCE IV Last administered on at 16:16; Start 03/09/17 at 15:45; Stop 03/09/17 at 16:45; Status DC Potassium Chloride 100 ml @ 50 mls/hr Q2H IV Last administered on 03/09/17at 20: 38; Start 03/09/17 at 16:45; Stop 03/09/17 at 20:44; Status DC Diltiazem HCl 125 mg/Sodium Chloride 125 ml @ 5 mls/hr TITRATE PRN IV tachycardia Last administered on 03/10/17at 02:19; Start 03/09/17 at 16:45; Stop at 19:44; Status DC Sodium Chloride (NS Flush) 2 ml UNSCH PRN IV FLUSH FLUSH AFTER USING IV ACCESS ; Start 03/09/17 at 16:45; Stop 03/09/17 at 19:45; Status DC Sodium Chloride 1,000 ml @ 70 mls/hr [id number] IV Last administered on 03/09/17at 19:00; Start 03/09/17 at 19:00; Stop 03/10/17 at 03:54; Status DC Sodium Chloride (NS Flush) 2 ml UNSCH PRN IV FLUSH FLUSH AFTER USING IV ACCESS ; Start 03/09/17 at 17:00; Stop 03/09/17 at 19:45; Status DC Sodium Chloride (NS Flush) 2 ml BID IV FLUSH ; Start 03/09/17 at 21:00; Stop 03/09 at 21:00; Status DC Acetaminophen (Tylenol) 650 mg Q4H PRN PO TEMP > 100.4; Start 03/09/17 at 17:00 Ondansetron HCl (Zofran Inj) 4 mg Q6H PRN IVP NAUSEA OR VOMITING Last administered on 03/10/17at 20:38; Start 03/09/17 at 17:00 Metoclopramide HCl (Reglan Inj) 5 mg Q6H PRN IV PUSH NAUSEA OR VOMITING; Start 03/09/17 at 17:00 Acetaminophen (Tylenol) 650 mg Q6H PRN PO PAIN SCALE 1 TO 2; Start 03/09/17 at 17:00 Oxycodone/ Acetaminophen (Percocet 5-325 Mg) 1 tab Q6H PRN PO PAIN SCALE 3 TO 5 Last administered on 03/11/17at 05:30; Start 03/09/17 at 17:00 Oxycodone/ Acetaminophen (Percocet 10-325 Mg) 1 tab Q6H PRN PO PAIN SCALE 6 TO 10 Last administered on 03/10/17at 20:24; Start 03/09/17 at 17:00 Morphine Sulfate (Morphine Inj) 2 mg Q3H PRN IV PUSH Pain 3-5; if unable to take PO; Start 03/09/17 at 17:00 Morphine Sulfate (Morphine Inj) 4 mg Q3H PRN IV PUSH Pain 6-10;if unable to take PO; Start 03/09/17 at 17:00 Morphine Sulfate (Morphine Inj) 4 mg Q1H PRN IV PUSH PAIN SCALE 7-10 ( INTRACTABLE); Start 03/09/17 at 17:00 Morphine Sulfate (Morphine Inj) 4 mg Q3H PRN IV PUSH BREAKTHROUGH PAIN Last administered on 03/11/17at 08:26; Start 03/09/17 at 17:00 Naloxone HCl (Narcan Inj) 0.4 mg UNSCH PRN IV PUSH SEE LABEL COMMENTS; Start at 17:00 Senna/Docusate Sodium (Lara-Colace) 1 tab BID PO Last administered on at 09:03; Start 03/09/17 at 21:00 Magnesium Hydroxide (Milk Of Magnesia Liq) 30 ml Q12H PRN PO Mild constipation ; Start 03/09/17 at 17:00 Sennosides (Senokot) 17.2 mg Q12H PRN PO Moderate constipation; Start 03/09/17 at 17:00 Bisacodyl (Dulcolax Supp) 10 mg DAILY PRN RECTAL SEVERE CONSITIPATION; Start at 17:00 Lactulose (Lactulose Liq) 30 ml DAILY PRN PO SEVERE CONSITIPATION; Start at 17:00 Sodium Chloride (NS Flush) 2 ml UNSCH PRN IV FLUSH FLUSH AFTER USING IV ACCESS ; Start 03/09/17 at 17:15 Sodium Chloride (NS Flush) 2 ml BID IV FLUSH Last administered on 03/19/17at 09: 03; Start 03/09/17 at 21:00 Diltiazem HCl 125 mg/Sodium Chloride 125 ml @ 5 mls/hr TITRATE PRN IV Tachycardia; Start 03/09/17 at 17:15 Metoprolol Tartrate (Lopressor) 25 mg Q12HR PO Last administered on 03/11/17at 22 :18; Start 03/09/17 at 21:00; Stop 03/12/17 at 11:14; Status DC Pantoprazole Sodium (Protonix) 40 mg DAILY PO Last administered on 03/19/17at 09 :03; Start 03/10/17 at 09:00 Sodium Chloride 1,000 ml @ 42 mls/hr [id number] IV Last administered on 03/10/17at 04:27; Start 03/10/17 at 04:00; Stop 03/10/17 at 08:25; Status DC Sodium Chloride 1,000 ml @ 42 mls/hr [id number] IV Last administered on 03/10/17at 12:03; Start 03/10/17 at 09:00; Stop 03/10/17 at 15:59; Status DC Potassium Chloride (KCl) 40 meq ONCE ONCE PO ; Start 03/10/17 at 10:45; Stop 03/10/17 at 10:46; Status DC Potassium Chloride 20 meq/ Sodium Chloride 1,010 ml @ 42 mls/hr Q24H IV ; Start 03/11/17 at 09:00; Status Cancel Potassium Chloride/Sodium Chloride 1,000 ml @ 42 mls/hr [id number] IV Last administered on 03/12/17at 09:26; Start 03/10/17 at 17:15; Stop 03/12/17 at 11:01; Status DC Amlodipine Besylate (Norvasc) 5 mg DAILY PO Last administered on 03/19/17at 09: 03; Start 03/10/17 at 18:00 Methimazole (Tapazole) 5 mg Q8HR PO Last administered on 03/11/17at 22:18; Start 03/10/17 at 22:00; Stop 03/12/17 at 11:01; Status DC Lorazepam (Ativan Inj) 0.5 mg Q8HR PRN IV PUSH anxiety Last administered on 03/14at 00:03; Start 03/11/17 at 14:00 Dextrose (D50w (Syr) Inj) 50 ml STK-MED ONCE .ROUTE ; Start 03/12/17 at 06:59; Stop 03/12/17 at 07:00; Status DC Dextrose (D50w (Syr) Inj) 25 ml ONCE ONCE IV PUSH Last administered on at 07:00; Start 03/12/17 at 07:00; Stop 03/12/17 at 07:03; Status DC Levetriacetam 500 mg/Sodium Chloride 105 ml @ 420 mls/hr Q6H IV Last administered on 03/19/17at 09:06; Start 03/12/17 at 09:00 Iohexol (Omnipaque 350 Inj) 74 ml STK-MED ONCE IVCONTRAST Last administered on 03/12/17at 08:57; Start 03/12/17 at 08:57; Stop 03/12/17 at 08:58; Status DC Gadodiamide (Omniscan Pf Inj) 10 ml STK-MED ONCE IVCONTRAST Last administered on 03/12/17at 10:02; Start 03/12/17 at 10:02; Stop 03/12/17 at 10:03; Status DC Methimazole (Tapazole) 10 mg Q8HR PO Last administered on 03/18/17at 22:00; Start 03/12/17 at 14:00 Sodium Chloride 38.5 meq/Sterile Water 1,009.625 ml @ 84 mls/hr Q12H2M IV Last administered on 03/14/17at 12:08; Start 03/12/17 at 11:00; Stop 03/14/17 at 14:18; Status DC Potassium Chloride 100 ml @ 50 mls/hr Q2H PRN IV For Potassium 2.8 - 3.2 mEq/L ; Start 03/12/17 at 11:15 Potassium Chloride 100 ml @ 50 mls/hr Q2H PRN IV For Potassium 2.8 - 3.2 mEq/L ; Start 03/12/17 at 11:15 Potassium Bicarb/ Potassium Chloride (K-Lyte Cl Eff) 50 meq UNSCH PRN PO For Potassium 3.3 - 3.5 mEq/L; Start 03/12/17 at 11:15 Potassium Chloride 100 ml @ 25 mls/hr UNSCH PRN IV For Potassium 3.3 - 3.5 mEq /L; Start 03/12/17 at 11:15 Potassium Chloride 100 ml @ 50 mls/hr Q2H PRN IV For Potassium 3.3 - 3.5 mEq/L ; Start 03/12/17 at 11:15 Magnesium Sulfate 4 gm/Sodium Chloride 100 ml @ 50 mls/hr UNSCH PRN IV For Magnesium 0.9 - 1.1 mg/dL; Start 03/12/17 at 11:15 Magnesium Oxide (Mag-Ox) 800 mg UNSCH PRN PO For Magnesium 1.2 - 1.6 mg/dL; Start 03/12/17 at 11:15 Magnesium Sulfate 2 gm/Sodium Chloride 100 ml @ 50 mls/hr UNSCH PRN IV For Magnesium 1.2 - 1.6 mg/dL Last administered on 03/13/17at 23:12; Start 03/12/17 at 11:15 Potassium Phosphate (K-Phos) 2,000 mg Q4H PRN PO For Phosphorus < 2.5 mg/dL; Start 03/12/17 at 11:15 Sodium Phosphate 30 mmol/Sodium Chloride 250 ml @ 42 mls/hr UNSCH PRN IV For Phosphorus < 2.5 mg/dL; Start 03/12/17 at 11:15 Potassium Phosphate (K-Phos) 2,000 mg UNSCH PRN PO/TUBE SEE LABEL COMMENTS; Start 03/12/17 at 11:15 Potassium Phosphate 30 mmol/ Sodium Chloride 260 ml @ 42 mls/hr UNSCH PRN IV SEE LABEL COMMENTS; Start 03/12/17 at 11:15 Propranolol HCl (Inderal) 20 mg Q8HR PO Last administered on 03/18/17at 21:55; Start 03/12/17 at 14:00 Potassium Chloride (KCl Powder) 40 meq Q12H NG Last administered on 03/13/17at 00 :00; Start 03/12/17 at 12:00; Stop 03/13/17 at 00:01; Status DC Potassium Chloride 100 ml @ 100 mls/hr Q1H IV Last administered on 03/12/17at 14 :07; Start 03/12/17 at 11:30; Stop 03/12/17 at 14:29; Status DC Water (Free Water) VOLUME: 200 ML Q6HR G-TUBE Last administered on 03/19/17at 00 :00; Start 03/12/17 at 18:00 (Jose L Taveras MD) Medical Decision Making MDM Remarks 81 y/o female with Subdural hematoma, she has a known subdural hematoma, CT of the head shows subdural collection with acute and subacute components Atrial fibrillation with rapid ventricular response (Maya Schreiber) Plan Plan Remarks management per Neurology, following cont close serial neuro checks (Maya Schreiber) Attending Statement She remains very encephalopathic Etiology ? Workup in progress The exam, history, and the medical decision-making described in the above note were completed with the assistance of the mid-level provider. I reviewed and agree with the findings presented. I attest that I had a [id number] encounter with the patient on the same day, and personally performed and documented my assessment and findings in the medical record. (Jose L Taveras MD) Maya Schreiber Mar 14, 2017 15:39 Jose L Taveras MD Mar 19, 2017 09:20
--- NOTE | 2017-03-14 22:12 | HHI.PR ---
Review/Management Diagnosis recent TIA vs focal sz left subdural hematoma Plan unable to anticoagulate due to subdural hematome continue keppra for possibility of focal sz. Diagnosis/Plan: Subjective Subjective Comments No acute events reported Active Medications Current Medications Medications (Trade) Dose Ordered Sig/Jordan Route Start Time Stop Time Status Last Admin (Tylenol) 650 mg Q4H PRN PO 03/09/17 17:00 (Zofran Inj) 4 mg Q6H PRN IVP 03/09/17 17:00 03/10/17 20:38 (Reglan Inj) 5 mg Q6H PRN IV PUSH 03/09/17 17:00 (Tylenol) 650 mg Q6H PRN PO 03/09/17 17:00 (Percocet 5-325 Mg) 1 tab Q6H PRN PO 03/09/17 17:00 03/11/17 05:30 (Percocet 10-325 Mg) 1 tab Q6H PRN PO 03/09/17 17:00 03/10/17 20:24 (Morphine Inj) 2 mg Q3H PRN IV PUSH 03/09/17 17:00 (Morphine Inj) 4 mg Q3H PRN IV PUSH 03/09/17 17:00 (Morphine Inj) 4 mg Q1H PRN IV PUSH 03/09/17 17:00 (Morphine Inj) 4 mg Q3H PRN IV PUSH 03/09/17 17:00 03/11/17 08:26 (Narcan Inj) 0.4 mg UNSCH PRN IV PUSH 03/09/17 17:00 (Lara-Colace) 1 tab BID PO 03/09/17 21:00 03/14/17 07:52 (Milk Of Magnesia Liq) 30 ml Q12H PRN PO 03/09/17 17:00 (Senokot) 17.2 mg Q12H PRN PO 03/09/17 17:00 (Dulcolax Supp) 10 mg DAILY PRN RECTAL 03/09/17 17:00 (Lactulose Liq) 30 ml DAILY PRN PO 03/09/17 17:00 (NS Flush) 2 ml UNSCH PRN IV FLUSH 03/09/17 17:15 (NS Flush) 2 ml BID IV FLUSH 03/09/17 21:00 03/14/17 07:53 Diltiazem HCl 125 mg/Sodium Chloride 125 ml @ 5 mls/hr TITRATE PRN IV 03/09/17 17:15 (Protonix) 40 mg DAILY PO 03/10/17 09:00 03/14/17 07:51 (Norvasc) 5 mg DAILY PO 03/10/17 18:00 03/14/17 07:51 (Ativan Inj) 0.5 mg Q8HR PRN IV PUSH 03/11/17 14:00 03/14/17 00:03 Levetriacetam 500 mg/Sodium Chloride 105 ml @ 420 mls/hr Q6H IV 03/12/17 09:00 03/14/17 14:53 (Tapazole) 10 mg Q8HR PO 03/12/17 14:00 03/14/17 14:22 Potassium Chloride 100 ml @ 50 mls/hr Q2H PRN IV 03/12/17 11:15 Potassium Chloride 100 ml @ 50 mls/hr Q2H PRN IV 03/12/17 11:15 (K-Lyte Cl Eff) 50 meq UNSCH PRN PO 03/12/17 11:15 Potassium Chloride 100 ml @ 25 mls/hr UNSCH PRN IV 03/12/17 11:15 Potassium Chloride 100 ml @ 50 mls/hr Q2H PRN IV 03/12/17 11:15 Magnesium Sulfate 4 gm/Sodium Chloride 100 ml @ 50 mls/hr UNSCH PRN IV 03/12/17 11:15 (Mag-Ox) 800 mg UNSCH PRN PO 03/12/17 11:15 Magnesium Sulfate 2 gm/Sodium Chloride 100 ml @ 50 mls/hr UNSCH PRN IV 03/12/17 11:15 03/13/17 23:12 (K-Phos) 2,000 mg Q4H PRN PO 03/12/17 11:15 Sodium Phosphate 30 mmol/Sodium Chloride 250 ml @ 42 mls/hr UNSCH PRN IV 03/12/17 11:15 (K-Phos) 2,000 mg UNSCH PRN PO/TUBE 03/12/17 11:15 Potassium Phosphate 30 mmol/ Sodium Chloride 260 ml @ 42 mls/hr UNSCH PRN IV 03/12/17 11:15 (Inderal) 20 mg Q8HR PO 03/12/17 14:00 03/14/17 14:22 (Free Water) VOLUME: 200 ML Q6HR G-TUBE 03/12/17 18:00 03/14/17 17:31 Allergies Allergies Coded Allergies ciprofloxacin (Verified Allergy, Severe, RASH, VOMITING, 02/14/17) Review of Systems All other ROS: ROS reviewed as documented in chart Exam I&O / VS 03/14/17 03/14/17 03/15/17 15:00 23:00 07:00 Intake Total 298 ml 1869 ml Output Total 450 ml Balance 298 ml 1419 ml IV Total 298 ml 929 ml Tube Feeding 540 ml Other 400 ml Output Urine Total 450 ml # Voids 3 # Bowel Movements 0 Vital Signs Date Time Temp Pulse Resp B/P (MAP) Pulse Ox O2 Delivery O2 Flow Rate FiO2 03/14/17 20:00 Room Air 97 03/14/17 20:00 98.6 75 20 117/56 (76) 100 03/14/17 16:00 97.4 74 20 131/62 (85) 100 03/14/17 16:00 74 03/14/17 12:00 97.4 68 23 118/58 (78) 100 03/14/17 12:00 68 03/14/17 08:00 63 03/14/17 08:00 97.4 63 25 103/50 (67) 100 03/14/17 07:58 100 21 03/14/17 07:20 100 Room Air 03/14/17 06:00 97 03/14/17 04:00 97.6 67 22 114/54 (74) 99 03/14/17 04:00 67 03/14/17 02:00 68 03/14/17 00:00 80 03/14/17 00:00 97.6 80 27 124/56 (78) 97 Exam Comments alert, follow commands CN--mild right umn 7 palsey, perrl, eom intact MOTOR 4+/5 RUE and LUE Objective Micro and Labs Laboratory Tests Test 03/14/17 02:28 03/14/17 08:47 Sodium Level 145 145 Date/Time Source Procedure Growth Status 03/09/17 15:25 Blood Peripheral Aerobic Blood Culture - Final NO GROWTH IN 5 DAYS Complete 03/09/17 15:25 Blood Peripheral Anaerobic Blood Culture - Final NO GROWTH IN 5 DAYS Complete Maik Strickland MD PhD Mar 14, 2017 22:12
[2017-03-15] VITALS (8 sets, daily range): BP systolic 122–145; BP diastolic 58–65; PULSE 65–86; RESP 16–20; TEMP 97.7–98.2; O2SAT 91–100
[2017-03-15] MEDS: levETIRAcetam INJ 500 MG in SODIUM CHLORIDE 0.9% INJ 100 ML IV SCH ×4 (02:56→21:01)
[2017-03-15 05:17] LABS: AUTOMATED NEUTROPHIL # 5.9 TH/MM3 (1.8-7.7); BASOPHIL % 0.4 % (0.0-2.0); EOSINOPHIL # 0.2 TH/MM3 (0-0.4); EOSINOPHIL % 2.2 % (0.0-4.0); HEMATOCRIT 27.2 % (35.0-46.0); HEMOGLOBIN 9.3 GM/DL (11.6-15.3); LYMPH % 25.9 % (9.0-44.0); LYMPHOCYTE # 2.4 TH/MM3 (1.0-4.8); MEAN CELL VOLUME 92.9 FL (80.0-100.0); MEAN CORPUSCULAR HEMOGLOBIN 31.8 PG (27.0-34.0); MEAN CORPUSCULAR HGB CONC 34.2 % (32.0-36.0); MEAN PLATELET VOLUME 9.1 FL (7.0-11.0); MONO % 8.8 % (0.0-8.0); MONOCYTE # 0.8 TH/MM3 (0-0.9); NEUT % 62.7 % (16.0-70.0); PLATELET COUNT 227 TH/MM3 (150-450); RED BLOOD COUNT 2.92 MIL/MM3 (4.00-5.30); RED CELL DISTRIBUTION WIDTH 14.6 % (11.6-17.2); WHITE BLOOD COUNT 9.4 TH/MM3 (4.0-11.0)
[2017-03-15 05:38] LABS: ALBUMIN 1.5 GM/DL (3.4-5.0); AST (GOT) 23 U/L (15-37); BICARBONATE 32.4 MEQ/L (21.0-32.0); BLOOD UREA NITROGEN 20 MG/DL (7-18); CALCIUM 7.8 MG/DL (8.5-10.1); CHLORIDE 110 MEQ/L (98-107); CREATININE 0.24 MG/DL (0.50-1.00); GLOMERULAR FILTRATION RATE 276 ML/MIN (>89); GLUCOSE,RANDOM 145 MG/DL (74-106); SODIUM (NA) 147 MEQ/L (136-145)
[2017-03-15 05:41] LABS: ALKALINE PHOSPHATASE 55 U/L (45-117); ALT (GPT) 13 U/L (10-53); TOTAL BILIRUBIN ADULT 0.3 MG/DL (0.2-1.0); TOTAL PROTEIN 5.6 GM/DL (6.4-8.2)
[2017-03-15] MEDS: FREE WATER G-TUBE SCH ×3 (05:54→18:00)
[2017-03-15] MEDS: PROPRANOLOL HCL 20 MG TAB PO SCH ×3 (05:54→21:02)
[2017-03-15] MEDS: METHIMAZOLE 5 MG TAB PO SCH ×3 (06:22→21:02)
[2017-03-15] MEDS: DOCUSATE SODIUM 50 MG/SENNA 8.6 MG TAB PO SCH ×2 (08:38→20:59)
[2017-03-15] MEDS: PANTOPRAZOLE SOD 40 MG DELAYED RELEASE TAB PO SCH (08:38)
[2017-03-15] MEDS: amLODIPine BESYLATE 5 MG TAB PO SCH (08:40)
[2017-03-15] MEDS: SODIUM CHLORIDE 0.9% FLUSH 10 ML FLUSH IV FLUSH SCH ×2 (08:40→21:01)
--- NOTE | 2017-03-15 13:59 | HHI.CCPN ---
Subjective Remarks/Hospital Course 03/12: This is an 81-year-old speaking female. Date of admission 2017. Date of consultation 03/12/2017. Past medical history includes hypothyroidism, hypertension, diabetes and gastroesophageal reflux disease. Patient was admitted February/2017. For evaluation of subdural hematoma. Was evaluated by neurosurgery recommended nonoperative/conservative management. Also has history of a chronic right subdural hygroma and normal pressure hydrocephalus. This hospitalization, admitted for syncopal episode. Workup included neurology consultation. CT brain revealed stable left subdural hematoma 11 mm located no frontal parietal temporal region. This morning, patient acute onset of altered mental status. Transfer to ICU. MRI brain reveals stable left frontal parietal temporal subdural hematoma. EEG has been ordered. Started on levetiracetam 500 mg IV every 6 hours by neurology bleed this is a seizure. Patient is Czech-speaking but following commands appropriately in robinson language. Focal deficits include right upper extremity weakness/pronator drift otherwise unremarkable. Denies chest pain, shortness of breath or abdominal pain. 03/13: Resting in bed. Tolerating tube feeds. Has baseline dementia. Not following commands. 03/14: Awake and alert. Resting in bed. Tolerating tube feeds. Does not follow commands. Has baseline dementia. Stopping quarter normal saline. 03/15: Awake and alert. Tolerating tube feeds. Complains of pain. Has baseline dementia. Objective Vital Signs Date Time Temp Pulse Resp B/P (MAP) Pulse Ox O2 Delivery O2 Flow Rate FiO2 03/15/17 12:00 97.8 86 19 137/60 (85) 100 03/14/17 20:00 Room Air 97 Intake and Output 03/15/17 03/15/17 03/16/17 08:00 16:00 00:00 Intake Total 0 ml Output Total 200 ml Balance -200 ml Result Diagram: 03/15/17 0432 03/15/17 0432 Imaging Last Impressions Neck CTA 03/12/17 0000 Signed Impressions: Service Date/Time: Sunday, March 12, 2017 08:22 - CONCLUSION: No acute disease. Abdiel Lerma MD Head CTA 03/12/17 0000 Signed Impressions: Service Date/Time: Sunday, March 12, 2017 08:22 - CONCLUSION: No focal stenosis, occlusion or aneurysm formation. Abdiel Lerma MD Head CT 03/12/17 0000 Signed Impressions: Service Date/Time: Sunday, March 12, 2017 07:43 - CONCLUSION: 1. Stable subdural collection along the left frontoparietal lobe which is both subacute and acute components and measures 11 mm in greatest width. 2. Diffuse cerebral atrophy. 3. No acute infarct is noted. Abdiel Lerma MD Chest X-Ray 03/12/17 0000 Signed Impressions: Service Date/Time: Sunday, March 12, 2017 07:04 - CONCLUSION: 1. Stable cardiomegaly. 2. No acute focal pulmonary infiltrate or pulmonary vascular congestion. Abdiel Lerma MD Brain MRI 03/12/17 0000 Signed Impressions: Service Date/Time: Sunday, March 12, 2017 09:46 - CONCLUSION: 1. No acute infarct, acute intracranial hemorrhage or enhancing mass lesion. 2. Stable subacute left frontal parietal and temporal subdural hematoma. 3. Cerebral atrophy. 4. Mild periventricular and subcortical white matter small vessel ischemic changes bilaterally. Abdiel Lerma MD Carotid Artery Ultrasound 03/11/17 0000 Signed Impressions: Service Date/Time: Saturday, March 11, 2017 19:37 - CONCLUSION: 1. Mild bilateral carotid plaque 2. No evidence of hemodynamically significant stenosis. 3. Antegrade flow both vertebral arteries. Killian Lo MD Objective Remarks GENERAL: 81-year-old female, resting in bed in no acute distress SKIN: Warm and dry. HEAD: Atraumatic. Normocephalic. EYES: Pupils equal and round about 3 mm bilaterally and reactive. No scleral icterus. No injection or drainage. ENT: No nasal bleeding or discharge. Mucous membranes pink and moist. NECK: Trachea midline. No JVD. CARDIOVASCULAR: Tachycardia, RR. S1, S2 no S4. Without murmur RESPIRATORY: No accessory muscle use. Clear to auscultation. Breath sounds equal bilaterally. GASTROINTESTINAL: Abdomen soft, non-tender, nondistended. Hepatic and splenic margins not palpable. MUSCULOSKELETAL: Extremities without clubbing, cyanosis, or edema. No obvious deformities. NEUROLOGICAL: Awake and alert. No obvious cranial nerve deficits. Positive right upper extremity weakness 4-5. Positive right pronator drift. 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 CT brain revealed stable left frontal parietal temporal subdural hematoma with possible acute and subacute components CTA brain and neck showed no signs of occlusive disease EEG done. Started on levetiracetam 500 mg IV every [address] Strickland Neurosurgery evaluation - conservative therapy no intervention at this time Patient is on oxycodone/acetaminophen 5-10/325 one tab every 6 hours as needed pain with morphine sulfate 4 mg IV every hour when necessary breakthrough through 10 PT/OT/ST evaluate and treat CV: Sinus tachycardia History of SVT Elevated troponin Patient is currently on propranolol 20 mg every 8 hours Previously on metoprolol 25 mg twice a day Continue amlodipine 5 mg daily Echocardiogram revealed EF 65-70%. Mild TR/NM. Pulmonary arterial pressures 55 -60 mmHg Resp: Nasal cannula to maintain saturations greater than equal to 92% Incentive spirometry while awake GI: Hypoalbuminemia Gastroesophageal reflux disease History of gastric ulcer Heart healthy diet Continue pantoprazole 40 mg by mouth daily/home medication Docusate sodium/senna 1 tablet twice a day for bowel regimen : No indication for Yip catheter Endo: Hyperthyroidism Continue methimazole but increased to 5-10 mg 3 times a day Thyroid ultrasound TSI was elevated 440. Likely Graves' disease Keep you antibodies/thyroglobulin pending TSH 0.005 on admission. Elevated T44.4 Sliding-scale insulin Novulog with Accu-Cheks before meals/at bedtime to maintain euglycemia/low regimen Renal: Monitor urine output Accurate I's and Os Currently one quarter normal saline at 84 cc an hour with free water 200 cc every 6 hours Recheck BMP in a.m. Heme: Normocytic anemia Monitor CBC daily. Follow trends ID: Monitor for infection FEN: Hypernatremia Hypokalemia Tolerating tube feedings with vital 1.5 goal 45 cc an hour MSK: PT/OT evaluate and treat Access - Utilize peripheral IV. Central line if indicated Prophylaxis - GI - pantoprazole - DVT - SCD/holding pharmacological prophylaxis until okayed with neurosurgery Discussed with Dr. Taveras from neurosurgery on 03/13. Okay to transfer out of ICU , no neurosurgical intervention planned. We will consult palliative care to assist with deciding goals of therapy. Transfer to hospitalist service for further medical management. Critical care will be signing off, please reconsult if needed. Narinder Burrows MD Mar 15, 2017 13:59
--- NOTE | 2017-03-15 15:33 | HHI.NSPN ---
(Maya Schreiber) Note Status Status: Progress Note (Maya Schreiber) Status: Progress Note (Jose L Taveras MD) Interval History Interval History This is-year-old female with a past medical history ofr subdural hematoma, history of SVT, diabetes mellitus, atrial fibrillation. pylori gastritis/peptic ulcer and arterial hypertension who was brought to [facility] emergency department for evaluation of a syncopal episode. She currently resides in a halfway where she was reported to have had a possible syncopal episode. She reportedly had nausea and vomiting as well. On arrival to the emergency department, EKG showed that the patient was in atrial fibrillation with rapid ventricular response, pulse 144. Head CT showed a stable subdural hematoma that has both subacute and acute components without midline shift. Her Chest x-ray negative for acute disease. Her Mental status is at baseline. She is not oriented to place or time. She denies chest pain/shortness of breath. Neurosurgical consultation was requested. 03/13: slightly more lethargic today, but oriented to name in [place] and followed few simple command in [place] 03/14: patient seen this morning during rounds, Eyes open but not verbalizing, not following commands. 03/15: patient seen this morning during rounds, appears more awake today, confused speech in [place] (Maya Schreiber) Labs, Micro, & Vital Signs Results Date Time Temp Pulse Resp B/P (MAP) Pulse Ox O2 Delivery O2 Flow Rate FiO2 03/15/17 12:00 97.8 86 19 137/60 (85) 100 03/15/17 08:56 99 03/15/17 08:00 68 03/15/17 08:00 97.8 84 20 145/61 (89) 100 03/15/17 04:00 97.7 75 18 134/63 (86) 99 03/15/17 00:00 98.2 75 18 126/58 (80) 97 03/14/17 20:00 Room Air 97 03/14/17 20:00 74 03/14/17 20:00 98.6 75 20 117/56 (76) 100 03/14/17 16:00 97.4 74 20 131/62 (85) 100 03/14/17 16:00 74 03/16/17 07:00 Intake Total 0 ml Balance 0 ml Constitutional Vital Signs Date Time Temp Pulse Resp B/P (MAP) Pulse Ox O2 Delivery O2 Flow Rate FiO2 03/15/17 12:00 97.8 86 19 137/60 (85) 100 03/15/17 08:56 99 03/15/17 08:00 68 03/15/17 08:00 97.8 84 20 145/61 (89) 100 03/15/17 04:00 97.7 75 18 134/63 (86) 99 03/15/17 00:00 98.2 75 18 126/58 (80) 97 03/14/17 20:00 Room Air 97 03/14/17 20:00 74 03/14/17 20:00 98.6 75 20 117/56 (76) 100 03/14/17 16:00 97.4 74 20 131/62 (85) 100 03/14/17 16:00 74 03/16/17 07:00 Intake Total 0 ml Balance 0 ml (Maya Schreiber) Physical Exam Ms. Matthew appears more awake, confused speech in [place]. Not following commands. No seizure like activities Cranial nerve examination: pupils to be equal. mild right supranuclear palsy Neck is soft and supple Motor: moving left upper extremity, right arm minimal movement, withdraws bilateral lower ext bilateral plantar flexion response. Cerebellar examination cannot assess due to her current condition (Maya Schreiber) Ms. Matthew appears more awake, confused speech in [place]. Not following commands. No seizure like activities Cranial nerve examination: pupils to be equal. mild right supranuclear palsy Neck is soft and supple Motor: moving left upper extremity, right arm minimal movement, withdraws bilateral lower ext bilateral plantar flexion response. Cerebellar examination cannot assess due to her current condition Lungs clear Heart regular rythm and rate Skin dry, warm (Jose L Taveras MD) Medications Current Medications Current Medications Medications (Trade) Dose Ordered Sig/Jordan Route PRN Reason Start Time Stop Time Status Last Admin Dose Admin Acetaminophen (Tylenol) 650 mg Q4H PRN PO TEMP > 100.4 03/09/17 17:00 Ondansetron HCl (Zofran Inj) 4 mg Q6H PRN IVP NAUSEA OR VOMITING 03/09/17 17:00 03/10/17 20:38 Metoclopramide HCl (Reglan Inj) 5 mg Q6H PRN IV PUSH NAUSEA OR VOMITING 03/09/17 17:00 Acetaminophen (Tylenol) 650 mg Q6H PRN PO PAIN SCALE 1 TO 2 03/09/17 17:00 Oxycodone/ Acetaminophen (Percocet 5-325 Mg) 1 tab Q6H PRN PO PAIN SCALE 3 TO 5 03/09/17 17:00 03/11/17 05:30 Oxycodone/ Acetaminophen (Percocet 10-325 Mg) 1 tab Q6H PRN PO PAIN SCALE 6 TO 10 03/09/17 17:00 03/10/17 20:24 Morphine Sulfate (Morphine Inj) 2 mg Q3H PRN IV PUSH Pain 3-5; if unable to take PO 03/09/17 17:00 Morphine Sulfate (Morphine Inj) 4 mg Q3H PRN IV PUSH Pain 6-10;if unable to take PO 03/09/17 17:00 Morphine Sulfate (Morphine Inj) 4 mg Q1H PRN IV PUSH PAIN SCALE 7-10 (INTRACTABLE) 03/09/17 17:00 Morphine Sulfate (Morphine Inj) 4 mg Q3H PRN IV PUSH BREAKTHROUGH PAIN 03/09/17 17:00 03/11/17 08:26 Naloxone HCl (Narcan Inj) 0.4 mg UNSCH PRN IV PUSH SEE LABEL COMMENTS 03/09/17 17:00 Senna/Docusate Sodium (Lara-Colace) 1 tab BID PO 03/09/17 21:00 03/15/17 08:38 Magnesium Hydroxide (Milk Of Magnesia Liq) 30 ml Q12H PRN PO Mild constipation 03/09/17 17:00 Sennosides (Senokot) 17.2 mg Q12H PRN PO Moderate constipation 03/09/17 17:00 Bisacodyl (Dulcolax Supp) 10 mg DAILY PRN RECTAL SEVERE CONSITIPATION 03/09/17 17:00 Lactulose (Lactulose Liq) 30 ml DAILY PRN PO SEVERE CONSITIPATION 03/09/17 17:00 Sodium Chloride (NS Flush) 2 ml UNSCH PRN IV FLUSH FLUSH AFTER USING IV ACCESS 03/09/17 17:15 Sodium Chloride (NS Flush) 2 ml BID IV FLUSH 03/09/17 21:00 03/15/17 08:40 Diltiazem HCl 125 mg/Sodium Chloride 125 ml @ 5 mls/hr TITRATE PRN IV Tachycardia 03/09/17 17:15 Pantoprazole Sodium (Protonix) 40 mg DAILY PO 03/10/17 09:00 03/15/17 08:38 Amlodipine Besylate (Norvasc) 5 mg DAILY PO 03/10/17 18:00 03/15/17 08:40 Lorazepam (Ativan Inj) 0.5 mg Q8HR PRN IV PUSH anxiety 03/11/17 14:00 03/14/17 00:03 Levetriacetam 500 mg/Sodium Chloride 105 ml @ 420 mls/hr Q6H IV 03/12/17 09:00 03/15/17 08:38 Methimazole (Tapazole) 10 mg Q8HR PO 03/12/17 14:00 03/15/17 14:24 Potassium Chloride 100 ml @ 50 mls/hr Q2H PRN IV For Potassium 2.8 - 3.2 mEq/L 03/12/17 11:15 Potassium Chloride 100 ml @ 50 mls/hr Q2H PRN IV For Potassium 2.8 - 3.2 mEq/L 03/12/17 11:15 Potassium Bicarb/ Potassium Chloride (K-Lyte Cl Eff) 50 meq UNSCH PRN PO For Potassium 3.3 - 3.5 mEq/L 03/12/17 11:15 Potassium Chloride 100 ml @ 25 mls/hr UNSCH PRN IV For Potassium 3.3 - 3.5 mEq/L 03/12/17 11:15 Potassium Chloride 100 ml @ 50 mls/hr Q2H PRN IV For Potassium 3.3 - 3.5 mEq/L 03/12/17 11:15 Magnesium Sulfate 4 gm/Sodium Chloride 100 ml @ 50 mls/hr UNSCH PRN IV For Magnesium 0.9 - 1.1 mg/dL 03/12/17 11:15 Magnesium Oxide (Mag-Ox) 800 mg UNSCH PRN PO For Magnesium 1.2 - 1.6 mg/dL 03/12/17 11:15 Magnesium Sulfate 2 gm/Sodium Chloride 100 ml @ 50 mls/hr UNSCH PRN IV For Magnesium 1.2 - 1.6 mg/dL 03/12/17 11:15 03/13/17 23:12 Potassium Phosphate (K-Phos) 2,000 mg Q4H PRN PO For Phosphorus < 2.5 mg/dL 03/12/17 11:15 Sodium Phosphate 30 mmol/Sodium Chloride 250 ml @ 42 mls/hr UNSCH PRN IV For Phosphorus < 2.5 mg/dL 03/12/17 11:15 Potassium Phosphate (K-Phos) 2,000 mg UNSCH PRN PO/TUBE SEE LABEL COMMENTS 03/12/17 11:15 Potassium Phosphate 30 mmol/ Sodium Chloride 260 ml @ 42 mls/hr UNSCH PRN IV SEE LABEL COMMENTS 03/12/17 11:15 Propranolol HCl (Inderal) 20 mg Q8HR PO 03/12/17 14:00 03/15/17 14:25 Water (Free Water) VOLUME: 200 ML Q6HR G-TUBE 03/12/17 18:00 03/15/17 05:54 (Maya Schreiber) Current Medications Current Medications Sodium Chloride (NS Flush) 2 ml UNSCH PRN IV FLUSH FLUSH AFTER USING IV ACCESS ; Start 03/09/17 at 15:00; Stop 03/09/17 at 19:45; Status DC Sodium Chloride 1,000 ml @ 1,000 mls/hr Q1H IV Last administered on 03/09/17at 15:13; Start 03/09/17 at 14:58; Stop 03/09/17 at 15:57; Status DC Diltiazem HCl (Cardizem Inj) 15 mg ONCE ONCE IV Last administered on 03/09/17at 16:16; Start 03/09/17 at 15:45; Stop 03/09/17 at 15:46; Status DC Sodium Chloride 1,000 ml @ 999 mls/hr BOLUS ONCE IV Last administered on at 16:16; Start 03/09/17 at 15:45; Stop 03/09/17 at 16:45; Status DC Potassium Chloride 100 ml @ 50 mls/hr Q2H IV Last administered on 03/09/17at 20: 38; Start 03/09/17 at 16:45; Stop 03/09/17 at 20:44; Status DC Diltiazem HCl 125 mg/Sodium Chloride 125 ml @ 5 mls/hr TITRATE PRN IV tachycardia Last administered on 03/10/17at 02:19; Start 03/09/17 at 16:45; Stop at 19:44; Status DC Sodium Chloride (NS Flush) 2 ml UNSCH PRN IV FLUSH FLUSH AFTER USING IV ACCESS ; Start 03/09/17 at 16:45; Stop 03/09/17 at 19:45; Status DC Sodium Chloride 1,000 ml @ 70 mls/hr [id number] IV Last administered on 03/09/17at 19:00; Start 03/09/17 at 19:00; Stop 03/10/17 at 03:54; Status DC Sodium Chloride (NS Flush) 2 ml UNSCH PRN IV FLUSH FLUSH AFTER USING IV ACCESS ; Start 03/09/17 at 17:00; Stop 03/09/17 at 19:45; Status DC Sodium Chloride (NS Flush) 2 ml BID IV FLUSH ; Start 03/09/17 at 21:00; Stop 03/09 at 21:00; Status DC Acetaminophen (Tylenol) 650 mg Q4H PRN PO TEMP > 100.4; Start 03/09/17 at 17:00 Ondansetron HCl (Zofran Inj) 4 mg Q6H PRN IVP NAUSEA OR VOMITING Last administered on 03/10/17at 20:38; Start 03/09/17 at 17:00 Metoclopramide HCl (Reglan Inj) 5 mg Q6H PRN IV PUSH NAUSEA OR VOMITING; Start 03/09/17 at 17:00 Acetaminophen (Tylenol) 650 mg Q6H PRN PO PAIN SCALE 1 TO 2; Start 03/09/17 at 17:00 Oxycodone/ Acetaminophen (Percocet 5-325 Mg) 1 tab Q6H PRN PO PAIN SCALE 3 TO 5 Last administered on 03/11/17at 05:30; Start 03/09/17 at 17:00 Oxycodone/ Acetaminophen (Percocet 10-325 Mg) 1 tab Q6H PRN PO PAIN SCALE 6 TO 10 Last administered on 03/10/17at 20:24; Start 03/09/17 at 17:00 Morphine Sulfate (Morphine Inj) 2 mg Q3H PRN IV PUSH Pain 3-5; if unable to take PO; Start 03/09/17 at 17:00 Morphine Sulfate (Morphine Inj) 4 mg Q3H PRN IV PUSH Pain 6-10;if unable to take PO; Start 03/09/17 at 17:00 Morphine Sulfate (Morphine Inj) 4 mg Q1H PRN IV PUSH PAIN SCALE 7-10 ( INTRACTABLE); Start 03/09/17 at 17:00 Morphine Sulfate (Morphine Inj) 4 mg Q3H PRN IV PUSH BREAKTHROUGH PAIN Last administered on 03/11/17at 08:26; Start 03/09/17 at 17:00 Naloxone HCl (Narcan Inj) 0.4 mg UNSCH PRN IV PUSH SEE LABEL COMMENTS; Start at 17:00 Senna/Docusate Sodium (Lara-Colace) 1 tab BID PO Last administered on at 09:03; Start 03/09/17 at 21:00 Magnesium Hydroxide (Milk Of Magnesia Liq) 30 ml Q12H PRN PO Mild constipation ; Start 03/09/17 at 17:00 Sennosides (Senokot) 17.2 mg Q12H PRN PO Moderate constipation; Start 03/09/17 at 17:00 Bisacodyl (Dulcolax Supp) 10 mg DAILY PRN RECTAL SEVERE CONSITIPATION; Start at 17:00 Lactulose (Lactulose Liq) 30 ml DAILY PRN PO SEVERE CONSITIPATION; Start at 17:00 Sodium Chloride (NS Flush) 2 ml UNSCH PRN IV FLUSH FLUSH AFTER USING IV ACCESS ; Start 03/09/17 at 17:15 Sodium Chloride (NS Flush) 2 ml BID IV FLUSH Last administered on 03/19/17at 09: 03; Start 03/09/17 at 21:00 Diltiazem HCl 125 mg/Sodium Chloride 125 ml @ 5 mls/hr TITRATE PRN IV Tachycardia; Start 03/09/17 at 17:15 Metoprolol Tartrate (Lopressor) 25 mg Q12HR PO Last administered on 03/11/17at 22 :18; Start 03/09/17 at 21:00; Stop 03/12/17 at 11:14; Status DC Pantoprazole Sodium (Protonix) 40 mg DAILY PO Last administered on 03/19/17at 09 :03; Start 03/10/17 at 09:00 Sodium Chloride 1,000 ml @ 42 mls/hr [id number] IV Last administered on 03/10/17at 04:27; Start 03/10/17 at 04:00; Stop 03/10/17 at 08:25; Status DC Sodium Chloride 1,000 ml @ 42 mls/hr [id number] IV Last administered on 03/10/17at 12:03; Start 03/10/17 at 09:00; Stop 03/10/17 at 15:59; Status DC Potassium Chloride (KCl) 40 meq ONCE ONCE PO ; Start 03/10/17 at 10:45; Stop 03/10/17 at 10:46; Status DC Potassium Chloride 20 meq/ Sodium Chloride 1,010 ml @ 42 mls/hr Q24H IV ; Start 03/11/17 at 09:00; Status Cancel Potassium Chloride/Sodium Chloride 1,000 ml @ 42 mls/hr [id number] IV Last administered on 03/12/17at 09:26; Start 03/10/17 at 17:15; Stop 03/12/17 at 11:01; Status DC Amlodipine Besylate (Norvasc) 5 mg DAILY PO Last administered on 03/19/17at 09: 03; Start 03/10/17 at 18:00 Methimazole (Tapazole) 5 mg Q8HR PO Last administered on 03/11/17at 22:18; Start 03/10/17 at 22:00; Stop 03/12/17 at 11:01; Status DC Lorazepam (Ativan Inj) 0.5 mg Q8HR PRN IV PUSH anxiety Last administered on 03/14at 00:03; Start 03/11/17 at 14:00 Dextrose (D50w (Syr) Inj) 50 ml STK-MED ONCE .ROUTE ; Start 03/12/17 at 06:59; Stop 03/12/17 at 07:00; Status DC Dextrose (D50w (Syr) Inj) 25 ml ONCE ONCE IV PUSH Last administered on at 07:00; Start 03/12/17 at 07:00; Stop 03/12/17 at 07:03; Status DC Levetriacetam 500 mg/Sodium Chloride 105 ml @ 420 mls/hr Q6H IV Last administered on 03/19/17at 09:06; Start 03/12/17 at 09:00 Iohexol (Omnipaque 350 Inj) 74 ml STK-MED ONCE IVCONTRAST Last administered on 03/12/17at 08:57; Start 03/12/17 at 08:57; Stop 03/12/17 at 08:58; Status DC Gadodiamide (Omniscan Pf Inj) 10 ml STK-MED ONCE IVCONTRAST Last administered on 03/12/17at 10:02; Start 03/12/17 at 10:02; Stop 03/12/17 at 10:03; Status DC Methimazole (Tapazole) 10 mg Q8HR PO Last administered on 03/18/17at 22:00; Start 03/12/17 at 14:00 Sodium Chloride 38.5 meq/Sterile Water 1,009.625 ml @ 84 mls/hr Q12H2M IV Last administered on 03/14/17at 12:08; Start 03/12/17 at 11:00; Stop 03/14/17 at 14:18; Status DC Potassium Chloride 100 ml @ 50 mls/hr Q2H PRN IV For Potassium 2.8 - 3.2 mEq/L ; Start 03/12/17 at 11:15 Potassium Chloride 100 ml @ 50 mls/hr Q2H PRN IV For Potassium 2.8 - 3.2 mEq/L ; Start 03/12/17 at 11:15 Potassium Bicarb/ Potassium Chloride (K-Lyte Cl Eff) 50 meq UNSCH PRN PO For Potassium 3.3 - 3.5 mEq/L; Start 03/12/17 at 11:15 Potassium Chloride 100 ml @ 25 mls/hr UNSCH PRN IV For Potassium 3.3 - 3.5 mEq /L; Start 03/12/17 at 11:15 Potassium Chloride 100 ml @ 50 mls/hr Q2H PRN IV For Potassium 3.3 - 3.5 mEq/L ; Start 03/12/17 at 11:15 Magnesium Sulfate 4 gm/Sodium Chloride 100 ml @ 50 mls/hr UNSCH PRN IV For Magnesium 0.9 - 1.1 mg/dL; Start 03/12/17 at 11:15 Magnesium Oxide (Mag-Ox) 800 mg UNSCH PRN PO For Magnesium 1.2 - 1.6 mg/dL; Start 03/12/17 at 11:15 Magnesium Sulfate 2 gm/Sodium Chloride 100 ml @ 50 mls/hr UNSCH PRN IV For Magnesium 1.2 - 1.6 mg/dL Last administered on 03/13/17at 23:12; Start 03/12/17 at 11:15 Potassium Phosphate (K-Phos) 2,000 mg Q4H PRN PO For Phosphorus < 2.5 mg/dL; Start 03/12/17 at 11:15 Sodium Phosphate 30 mmol/Sodium Chloride 250 ml @ 42 mls/hr UNSCH PRN IV For Phosphorus < 2.5 mg/dL; Start 03/12/17 at 11:15 Potassium Phosphate (K-Phos) 2,000 mg UNSCH PRN PO/TUBE SEE LABEL COMMENTS; Start 03/12/17 at 11:15 Potassium Phosphate 30 mmol/ Sodium Chloride 260 ml @ 42 mls/hr UNSCH PRN IV SEE LABEL COMMENTS; Start 03/12/17 at 11:15 Propranolol HCl (Inderal) 20 mg Q8HR PO Last administered on 03/18/17at 21:55; Start 03/12/17 at 14:00 Potassium Chloride (KCl Powder) 40 meq Q12H NG Last administered on 03/13/17at 00 :00; Start 03/12/17 at 12:00; Stop 03/13/17 at 00:01; Status DC Potassium Chloride 100 ml @ 100 mls/hr Q1H IV Last administered on 03/12/17at 14 :07; Start 03/12/17 at 11:30; Stop 03/12/17 at 14:29; Status DC Water (Free Water) VOLUME: 200 ML Q6HR G-TUBE Last administered on 03/19/17at 00 :00; Start 03/12/17 at 18:00 (Jose L Taveras MD) Medical Decision Making MDM Remarks 81 y/o female with Subdural hematoma, she has a known subdural hematoma, CT of the head shows subdural collection with acute and subacute components Atrial fibrillation with rapid ventricular response (Maya Schreiber) Plan Plan Remarks management per Neurology, following cont close serial neuro checks (Maya Schreiber) Attending Statement Continue neuro checks. Pulmonary.. Continue aggressive pulmonary toilette, nasotracheal suction, and breathing treatments with nebulizers. Nutrition. NPO Renal. monitor closely urine output, BUN and creatinine Endocrine. Monitor serial Acu checks and SSI as needed in detail ID monitor for signs of infection Protonix for stress ulcer prophylaxis Octavio hose and SCD's for DVT prophylaxis. The exam, history, and the medical decision-making described in the above note were completed with the assistance of the mid-level provider. I reviewed and agree with the findings presented. I attest that I had a [id number] encounter with the patient on the same day, and personally performed and documented my assessment and findings in the medical record. (Jose L Taveras MD) Maya Schreiber Mar 15, 2017 15:33 Jose L Taveras MD Mar 19, 2017 10:17
[2017-03-16] VITALS (11 sets, daily range): BP systolic 119–159; BP diastolic 58–86; PULSE 61–100; RESP 16–21; TEMP 97.6–98.4; O2SAT 97–100
[2017-03-16] MEDS: levETIRAcetam INJ 500 MG in SODIUM CHLORIDE 0.9% INJ 100 ML IV SCH ×4 (03:46→21:27)
[2017-03-16] MEDS: METHIMAZOLE 5 MG TAB PO SCH ×3 (05:33→21:26)
[2017-03-16] MEDS: PROPRANOLOL HCL 20 MG TAB PO SCH ×3 (05:33→21:26)
[2017-03-16] MEDS: FREE WATER G-TUBE SCH ×5 (05:33→21:42)
[2017-03-16] MEDS: PANTOPRAZOLE SOD 40 MG DELAYED RELEASE TAB PO SCH (09:04)
[2017-03-16] MEDS: amLODIPine BESYLATE 5 MG TAB PO SCH (09:04)
[2017-03-16] MEDS: DOCUSATE SODIUM 50 MG/SENNA 8.6 MG TAB PO SCH ×2 (09:04→21:33)
--- NOTE | 2017-03-16 11:43 | HHI.HCPN ---
Reason for visit a. To assist with evaluation and management of symptoms including: Debility. b. To assist medical decision maker(s) with: better understanding of current medical conditions; weighing benefits/burdens of medical treatment options; making medical treatment decisions. . Subjective/Interval History Palliative care reconsulted today to assist w clarification of goals of treatment. Pt known to palliative, seen 03/10, will continue to follow and assist. Has Dobbhoff in place tolerating tube feedings. Last BM 03/14. On daily pericolace , has prn senna, MOM and lactulose available. ST following, has not been able to cognitively or physically participate enough to pass, remains NPO. Vital signs stable on room air. Pending transfer to [facility] hospital floor. Pt with periods of lethargy alternating with more alertness. Patient seen in room no visitors present. She is awake . She tracks examiner. She follows simple commands in Bolivian. Ask her how she is she mumbles words very softly, I am unable to understand her. Ask if she is in pain (in Mosotho) she does not answer. She mumbles other garbled speech which I cannot understand - not clear enough to determine if is Bolivian or Mosotho. Following exam call to leatha/MIL Mcclelland. Provided update on current condition, assessment, prognosis. Briefly review swallow evaluation(s) ongoing per ST, pt still w dobhoff may require PEG for longer term feeding. She understands she will have to make some decisions sometime soon. She indicates she will be visiting the pt, and bringing her adult dtr w severe MR in to see her, before making further decisions. Advance Directives Living Will: Never completed Health Care Surrogate: Copy in medical record Advance Directive Specifics Date completed: 03/10/2017. Health Care Surrogate(s): Patient has designated her leatha Matthew as primary healthcare surrogate, alternate surrogate is sarah Matthew. . Objective Vital Signs Date Time Temp Pulse Resp B/P (MAP) Pulse Ox O2 Delivery O2 Flow Rate FiO2 03/16/17 10:19 97 21 03/16/17 08:00 98.2 65 16 145/66 (92) 100 03/16/17 04:00 69 03/16/17 04:00 97.7 68 17 159/66 (97) 100 03/16/17 00:36 100 03/16/17 00:00 97.8 70 18 145/67 (93) 100 03/16/17 00:00 75 03/15/17 20:00 71 03/15/17 20:00 97.8 82 19 136/65 (88) 100 03/15/17 16:54 76 03/15/17 16:54 100 Room Air 03/15/17 16:00 98.1 65 16 122/58 (79) 91 03/15/17 12:00 97.8 86 19 137/60 (85) 100 Intake & Output 03/16/17 03/16/17 07:00 19:00 Intake Total 200 ml Output Total 400 ml Balance -200 ml Intake Oral 0 ml IV Total 200 ml Output Urine Total 400 ml # Voids 3 Physical Exam CONSTITUTIONAL/GENERAL: This is an elderly, cachectic female resting in bed in no acute distress. TUBES/LINES/DRAINS: PIV's upper extremities, soft restraints bilateral wrist, Dobbhoff right nare, SCDs EYES: Pupils equal and round and reactive. Extraocular motions intact. No scleral icterus. No injection or drainage. ENT: Hearing appears normal. Nose without bleeding or purulent drainage. Moist oral mucosa CARDIOVASCULAR: regular rate and rhythm without murmur. No JVD. Peripheral pulses symmetric. RESPIRATORY/CHEST: Symmetric, unlabored respirations. On room air. Clear to auscultation. Breath sounds equal bilaterally. GASTROINTESTINAL: Abdomen soft, flat, non-tender, nondistended. No guarding. Bowel sounds normoactive. GENITOURINARY: Without palpable bladder distension. MUSCULOSKELETAL: Extremities without clubbing, cyanosis, or edema. Muscular atrophy to all 4 extremities. NEUROLOGICAL: Awake and alert--she does not answer questions to name, date of or location. She mumbles in soft, garbled speech,unable to understand. Appears confused She follows very simple commands. She moves all 4 extremities with generalized weakness. PSYCHIATRIC: no apparent anxiety or distress . Diagnostic Tests Laboratory Laboratory Tests Test 03/13/17 11:21 03/13/17 21:36 03/14/17 02:28 03/14/17 08:47 Sodium Level 146 MEQ/L (136-145) 142 MEQ/L (136-145) 145 MEQ/L (136-145) 145 MEQ/L (136-145) Test 03/15/17 04:32 White Blood Count 9.4 TH/MM3 (4.0-11.0) Red Blood Count 2.92 MIL/MM3 (4.00-5.30) Hemoglobin 9.3 GM/DL (11.6-15.3) Hematocrit 27.2 % (35.0-46.0) Mean Corpuscular Volume 92.9 FL (80.0-100.0) Mean Corpuscular Hemoglobin 31.8 PG (27.0-34.0) Mean Corpuscular Hemoglobin Concent 34.2 % (32.0-36.0) Red Cell Distribution Width 14.6 % (11.6-17.2) Platelet Count 227 TH/MM3 (150-450) Mean Platelet Volume 9.1 FL (7.0-11.0) Neutrophils (%) (Auto) 62.7 % (16.0-70.0) Lymphocytes (%) (Auto) 25.9 % (9.0-44.0) Monocytes (%) (Auto) 8.8 % (0.0-8.0) Eosinophils (%) (Auto) 2.2 % (0.0-4.0) Basophils (%) (Auto) 0.4 % (0.0-2.0) Neutrophils # (Auto) 5.9 TH/MM3 (1.8-7.7) Lymphocytes # (Auto) 2.4 TH/MM3 (1.0-4.8) Monocytes # (Auto) 0.8 TH/MM3 (0-0.9) Eosinophils # (Auto) 0.2 TH/MM3 (0-0.4) Basophils # (Auto) 0.0 TH/MM3 (0-0.2) CBC Comment DIFF FINAL Differential Comment Blood Urea Nitrogen 20 MG/DL (7-18) Creatinine 0.24 MG/DL (0.50-1.00) Random Glucose 145 MG/DL (74-106) Total Protein 5.6 GM/DL (6.4-8.2) Albumin 1.5 GM/DL (3.4-5.0) Calcium Level 7.8 MG/DL (8.5-10.1) Alkaline Phosphatase 55 U/L (45-117) Aspartate Amino Transf (AST/SGOT) 23 U/L (15-37) Alanine Aminotransferase (ALT/SGPT) 13 U/L (10-53) Total Bilirubin 0.3 MG/DL (0.2-1.0) Sodium Level 147 MEQ/L (136-145) Potassium Level 3.2 MEQ/L (3.5-5.1) Chloride Level 110 MEQ/L (98-107) Carbon Dioxide Level 32.4 MEQ/L (21.0-32.0) Anion Gap 5 MEQ/L (5-15) Estimat Glomerular Filtration Rate 276 ML/MIN (>89) Result Diagram: 03/15/1743103/15/17431 Microbiology Microbiology Date/Time Source Procedure Growth Status 03/09/17 15:25 Blood Peripheral Aerobic Blood Culture - Final NO GROWTH IN 5 DAYS Complete 03/09/17 15:25 Blood Peripheral Anaerobic Blood Culture - Final NO GROWTH IN 5 DAYS Complete Imaging Last Impressions Thyroid Ultrasound 03/12/17 0000 Signed Impressions: Service Date/Time: Sunday, March 12, 2017 17:54 - CONCLUSION: 1. 9 mm nodule in the mid right thyroid gland along the posterior margin. It is uncertain whether this represents a thyroid or parathyroid nodule. 2. Mild heterogeneous appearance of the thyroid gland 3. No other discrete masses. Killian Lo MD Neck CTA 03/12/17 0000 Signed Impressions: Service Date/Time: Sunday, March 12, 2017 08:22 - CONCLUSION: No acute disease. Abdiel Lerma MD Head CTA 03/12/17 0000 Signed Impressions: Service Date/Time: Sunday, March 12, 2017 08:22 - CONCLUSION: No focal stenosis, occlusion or aneurysm formation. Abdiel Lerma MD Head CT 03/12/17 0000 Signed Impressions: Service Date/Time: Sunday, March 12, 2017 07:43 - CONCLUSION: 1. Stable subdural collection along the left frontoparietal lobe which is both subacute and acute components and measures 11 mm in greatest width. 2. Diffuse cerebral atrophy. 3. No acute infarct is noted. Abdiel Lerma MD Chest X-Ray 03/12/17 0000 Signed Impressions: Service Date/Time: Sunday, March 12, 2017 07:04 - CONCLUSION: 1. Stable cardiomegaly. 2. No acute focal pulmonary infiltrate or pulmonary vascular congestion. Abdiel Lerma MD Brain MRI 03/12/17 0000 Signed Impressions: Service Date/Time: Sunday, March 12, 2017 09:46 - CONCLUSION: 1. No acute infarct, acute intracranial hemorrhage or enhancing mass lesion. 2. Stable subacute left frontal parietal and temporal subdural hematoma. 3. Cerebral atrophy. 4. Mild periventricular and subcortical white matter small vessel ischemic changes bilaterally. Abdiel Lerma MD Abdomen X-Ray 03/12/17 0000 Signed Impressions: Service Date/Time: Sunday, March 12, 2017 11:33 - CONCLUSION: No evidence of obstruction. Dobbhoff feeding tube in the fundus of the stomach Franki Winkler MD Carotid Artery Ultrasound 03/11/17 0000 Signed Impressions: Service Date/Time: Saturday, March 11, 2017 19:37 - CONCLUSION: 1. Mild bilateral carotid plaque 2. No evidence of hemodynamically significant stenosis. 3. Antegrade flow both vertebral arteries. Killian Lo MD Assessment and Plan Disease Oriented Problem List: (1) Atrial fibrillation with RVR (2) Electrolyte abnormality (3) Nausea (4) Subdural hematoma (5) Cachexia (6) Physical deconditioning Symptom Scale: (1) Debility 0-10 Scale: Unable to quantify Comment: Progressive. (2) Abdominal pain 0-10 Scale: Unable to quantify Comment: Unclear etiology. Pertinent Non-Medical Issues Psychosocial: Patient originally from [facility]. Moved to [place] 15 years ago. Patient is , 5 years ago. Patient has an adult daughter , Elle who is 47 years old with Down syndrome. 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 Primary language is Mosotho. Spiritual: Synagogue luisa. Legal: Advance directives completed. Ethical issues impacting care: No ethical issues identified. . Important Contacts Niece/HCS Krystin Matthew , . . Prognosis Mrs. Matthew is an 81 female with a medical history of Alzheimer's dementia, diabetes mellitus, hypertension and acute-subacute subdural hematoma. Patient presented to emergency room via EMS on 03/09/17 from [facility] for evaluation of near syncopal episode and nausea vomiting. Patient with multiple recent acute hospitalizations, this is patient's seventh acute hospitalization in the past 4 months. Patient in and out jail facilities, reporting progressive physical deconditioning, weight loss. Patient is cachectic, frail. Patient at high risk for further complications, continue decline and . . Code Status: No Code Plan * CODE STATUS: No code. DNR/DNI. This has been confirmed with patient's niece/ MIL Mcclelland. Community DNR left at bedside for completion. Will follow-up. * HEALTHCARE DECISION-MAKING: Patient with baseline Alzheimer's dementia. Alert and oriented x self and situation, intermittent confusion -easily reoriented. Mostly coherent conversation conducted in her [place] language [place]otho. Patient with a fair understanding of her progressive decline. Has designated her niece Krystin Matthew as primary healthcare surrogate decision maker, alternate surrogate is step son Abdiel Matthew. Given patient's intermittent confusion, palliative care recommends shared decision-making with HCS/niluis Mcclelland as well as providing patient with Mosotho interpreting services -Patient communicates best in her [place] language. * GOALS OF CARE: Per initial palliative consultation 03/10/17: Patient and niece/ MIL Mcclelland electing to maximize medical management short of NO code. Patient and family wishing to discharge to jail facility for physical straightening. Shared concerns of patient's progressive decline as evidenced by multiple acute hospitalizations within the past 4 months, multiple comorbidities, cachexia/failure to thrive and ongoing acute events. Patient's ultimate goal is to return home for independent living, shared concerns given her progressive decline and higher level of needs. Patient resides with adult daughter who has special needs secondary to Down syndrome. Reviewed with leatha that patient will likely require long-term placement. Patient and family receptive to ongoing goals of care conversation. 03/16/17 updated [facility] leatha Mcclelland. At this time goals to continue current care/ tx, some discussion RE possible PEG for long-term feeding pending ongoing ST evaluation, no decisions made yet . * SYMPTOMS: =Debility: Progressive. Patient with multiple acute hospitalizations in the past 4 months. Has been receiving rehabilitation at jail facility. Patient is cachectic, profound physical deconditioning with history of multiple falls. Likely to continue to worsen. Patient and family requesting discharge to jail facility for physical straightening. * = Abdominal pain: Unclear etiology. Patient with similar complaints on prior hospitalizations. GI has been previously consulted in February, -No acute findings. Passing flatus, KUB negative for obstruction. Tolerating tube feeding. No apparent pathology. Would avoid use of opiates as this may further alter patient's mental status, would further slow GI motility. * Palliative care will continue to follow-up for further clarifications of goals of care as patient's clinical course continues to evolve. . Attestation To help prompt me to consider important information that might be impacting today's encounter and assessment, information from prior notes written by myself or my colleagues may have been "brought forward" into today's note. My signature on this note, however, is an attestation that I personally performed the exam, history, and/or decision-making noted today, and, unless otherwise indicated, the interactions with patient, family, and staff as well as the review of records all occurred today. I also attest that the listed assessment and stated plan reflect my best clinical judgment today based on the combination of historical information, prior notes, and today's exam/ interactions. When time spent is documented, it refers only to time spent today by the signer, or if indicated, combined time spent today by collaborating physician/nurse practitioner. Lyn Mcgraw Mar 16, 2017 11:43
--- NOTE | 2017-03-16 14:29 | HHI.CCPN ---
Subjective Remarks/Hospital Course 03/12: This is an 81-year-old speaking female. Date of admission 2017. Date of consultation 03/12/2017. Past medical history includes hypothyroidism, hypertension, diabetes and gastroesophageal reflux disease. Patient was admitted February/2017. For evaluation of subdural hematoma. Was evaluated by neurosurgery recommended nonoperative/conservative management. Also has history of a chronic right subdural hygroma and normal pressure hydrocephalus. This hospitalization, admitted for syncopal episode. Workup included neurology consultation. CT brain revealed stable left subdural hematoma 11 mm located no frontal parietal temporal region. This morning, patient acute onset of altered mental status. Transfer to ICU. MRI brain reveals stable left frontal parietal temporal subdural hematoma. EEG has been ordered. Started on levetiracetam 500 mg IV every 6 hours by neurology bleed this is a seizure. Patient is Estonian-speaking but following commands appropriately in coquille language. Focal deficits include right upper extremity weakness/pronator drift otherwise unremarkable. Denies chest pain, shortness of breath or abdominal pain. 03/13: Resting in bed. Tolerating tube feeds. Has baseline dementia. Not following commands. 03/14: Awake and alert. Resting in bed. Tolerating tube feeds. Does not follow commands. Has baseline dementia. Stopping quarter normal saline. 03/15: Awake and alert. Tolerating tube feeds. Complains of pain. Has baseline dementia. 03/16: No change in neuro status. Objective Vital Signs Date Time Temp Pulse Resp B/P (MAP) Pulse Ox O2 Delivery O2 Flow Rate FiO2 03/16/17 12:00 98.3 61 16 137/62 (87) 100 03/16/17 10:19 21 03/15/17 16:54 Room Air Intake and Output 03/16/17 03/16/17 03/17/17 08:00 16:00 00:00 Intake Total 100 ml Output Total 400 ml Balance -300 ml Result Diagram: 03/15/17 0432 03/15/17 0432 Imaging Last Impressions Neck CTA 03/12/17 0000 Signed Impressions: Service Date/Time: Sunday, March 12, 2017 08:22 - CONCLUSION: No acute disease. Abdiel Lerma MD Head CTA 03/12/17 0000 Signed Impressions: Service Date/Time: Sunday, March 12, 2017 08:22 - CONCLUSION: No focal stenosis, occlusion or aneurysm formation. Abdiel Lerma MD Head CT 03/12/17 0000 Signed Impressions: Service Date/Time: Sunday, March 12, 2017 07:43 - CONCLUSION: 1. Stable subdural collection along the left frontoparietal lobe which is both subacute and acute components and measures 11 mm in greatest width. 2. Diffuse cerebral atrophy. 3. No acute infarct is noted. Abdiel Lerma MD Chest X-Ray 03/12/17 0000 Signed Impressions: Service Date/Time: Sunday, March 12, 2017 07:04 - CONCLUSION: 1. Stable cardiomegaly. 2. No acute focal pulmonary infiltrate or pulmonary vascular congestion. Abdiel Lerma MD Brain MRI 03/12/17 0000 Signed Impressions: Service Date/Time: Sunday, March 12, 2017 09:46 - CONCLUSION: 1. No acute infarct, acute intracranial hemorrhage or enhancing mass lesion. 2. Stable subacute left frontal parietal and temporal subdural hematoma. 3. Cerebral atrophy. 4. Mild periventricular and subcortical white matter small vessel ischemic changes bilaterally. Abdiel Lerma MD Carotid Artery Ultrasound 03/11/17 0000 Signed Impressions: Service Date/Time: Saturday, March 11, 2017 19:37 - CONCLUSION: 1. Mild bilateral carotid plaque 2. No evidence of hemodynamically significant stenosis. 3. Antegrade flow both vertebral arteries. Killian Lo MD Objective Remarks GENERAL: 81-year-old female, resting in bed, no acute distress SKIN: Warm and dry. HEAD: Atraumatic. Normocephalic. EYES: Pupils equal and round 2 mm bilaterally and reactive. No scleral icterus. No injection or drainage. ENT: No nasal bleeding or discharge. Mucous membranes pink and moist. NECK: Trachea midline. Airway widely patent. CARDIOVASCULAR: Tachycardia, RR. S1, S2. Without murmur, no JVD. RESPIRATORY: No accessory muscle use. Clear to auscultation. Breath sounds equal bilaterally. GASTROINTESTINAL: Abdomen soft, non-tender, nondistended. No guarding MUSCULOSKELETAL: Extremities without clubbing, cyanosis, or edema. No obvious deformities. NEUROLOGICAL: Awake and alert,slow to respond. No obvious cranial nerve deficits. Positive right upper extremity weakness. 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 CT brain revealed stable left frontal parietal temporal subdural hematoma with possible acute and subacute components CTA brain and neck showed no signs of occlusive disease EEG done. Started on levetiracetam 500 mg IV every [address] Strickland Neurosurgery evaluation - conservative therapy no intervention at this time Patient is on oxycodone/acetaminophen 5-10/325 one tab every 6 hours as needed pain with morphine sulfate 4 mg IV every hour when necessary breakthrough through 10 PT/OT/ST evaluate and treat CV: Sinus tachycardia History of SVT Elevated troponin Patient is currently on propranolol 20 mg every 8 hours Previously on metoprolol 25 mg twice a day Continue amlodipine 5 mg daily Echocardiogram revealed EF 65-70%. Mild TR/OK. Pulmonary arterial pressures 55 -60 mmHg Resp: Nasal cannula to maintain saturations greater than equal to 92% Incentive spirometry while awake GI: Hypoalbuminemia Gastroesophageal reflux disease History of gastric ulcer Heart healthy diet Continue pantoprazole 40 mg by mouth daily/home medication Docusate sodium/senna 1 tablet twice a day for bowel regimen : No indication for Yip catheter Endo: Hyperthyroidism Continue methimazole but increased to 5-10 mg 3 times a day Thyroid ultrasound TSI was elevated 440. Likely Graves' disease Keep you antibodies/thyroglobulin pending TSH 0.005 on admission. Elevated T44.4 Sliding-scale insulin Novolog with Accu-Cheks before meals/at bedtime to maintain euglycemia/low regimen Renal: Monitor urine output Accurate I's and Os Currently one quarter normal saline at 84 cc an hour with free water 200 cc every 6 hours Recheck BMP in a.m. Heme: Normocytic anemia Monitor CBC daily. Follow trends ID: Monitor for infection FEN: Hypernatremia Hypokalemia Tolerating tube feedings with vital 1.5 goal 45 cc an hour MSK: PT/OT evaluate and treat Access - Utilize peripheral IV. Central line if indicated Prophylaxis - GI - pantoprazole - DVT - SCD/holding pharmacological prophylaxis until okayed with neurosurgery Discussed with Dr. Taveras from neurosurgery on 03/13. Okay to transfer out of ICU , no neurosurgical intervention planned. Palliative care following to assist with deciding goals of therapy. Transfer to hospitalist service for further medical management. Critical care will be signing off, please reconsult if needed. Mahamed Green MD 11, 2018 14:29
[2017-03-16] MEDS: SODIUM CHLORIDE 0.9% FLUSH 10 ML FLUSH IV FLUSH SCH ×2 (17:22→21:34)
--- NOTE | 2017-03-16 20:26 | HHI.PR ---
Review/Management Diagnosis recent TIA vs focal sz left subdural hematoma Plan unable to anticoagulate due to subdural hematome continue keppra for possibility of focal sz. Diagnosis/Plan: Subjective Subjective Comments No acute events reported Active Medications Current Medications Medications (Trade) Dose Ordered Sig/Jordan Route Start Time Stop Time Status Last Admin (Tylenol) 650 mg Q4H PRN PO 03/09/17 17:00 (Zofran Inj) 4 mg Q6H PRN IVP 03/09/17 17:00 03/10/17 20:38 (Reglan Inj) 5 mg Q6H PRN IV PUSH 03/09/17 17:00 (Tylenol) 650 mg Q6H PRN PO 03/09/17 17:00 (Percocet 5-325 Mg) 1 tab Q6H PRN PO 03/09/17 17:00 03/11/17 05:30 (Percocet 10-325 Mg) 1 tab Q6H PRN PO 03/09/17 17:00 03/10/17 20:24 (Morphine Inj) 2 mg Q3H PRN IV PUSH 03/09/17 17:00 (Morphine Inj) 4 mg Q3H PRN IV PUSH 03/09/17 17:00 (Morphine Inj) 4 mg Q1H PRN IV PUSH 03/09/17 17:00 (Morphine Inj) 4 mg Q3H PRN IV PUSH 03/09/17 17:00 03/11/17 08:26 (Narcan Inj) 0.4 mg UNSCH PRN IV PUSH 03/09/17 17:00 (Lara-Colace) 1 tab BID PO 03/09/17 21:00 03/16/17 09:04 (Milk Of Magnesia Liq) 30 ml Q12H PRN PO 03/09/17 17:00 (Senokot) 17.2 mg Q12H PRN PO 03/09/17 17:00 (Dulcolax Supp) 10 mg DAILY PRN RECTAL 03/09/17 17:00 (Lactulose Liq) 30 ml DAILY PRN PO 03/09/17 17:00 (NS Flush) 2 ml UNSCH PRN IV FLUSH 03/09/17 17:15 (NS Flush) 2 ml BID IV FLUSH 03/09/17 21:00 03/16/17 17:22 Diltiazem HCl 125 mg/Sodium Chloride 125 ml @ 5 mls/hr TITRATE PRN IV 03/09/17 17:15 (Protonix) 40 mg DAILY PO 03/10/17 09:00 03/16/17 09:04 (Norvasc) 5 mg DAILY PO 03/10/17 18:00 03/16/17 09:04 (Ativan Inj) 0.5 mg Q8HR PRN IV PUSH 03/11/17 14:00 03/14/17 00:03 Levetriacetam 500 mg/Sodium Chloride 105 ml @ 420 mls/hr Q6H IV 03/12/17 09:00 03/16/17 15:24 (Tapazole) 10 mg Q8HR PO 03/12/17 14:00 03/16/17 15:24 Potassium Chloride 100 ml @ 50 mls/hr Q2H PRN IV 03/12/17 11:15 Potassium Chloride 100 ml @ 50 mls/hr Q2H PRN IV 03/12/17 11:15 (K-Lyte Cl Eff) 50 meq UNSCH PRN PO 03/12/17 11:15 Potassium Chloride 100 ml @ 25 mls/hr UNSCH PRN IV 03/12/17 11:15 Potassium Chloride 100 ml @ 50 mls/hr Q2H PRN IV 03/12/17 11:15 Magnesium Sulfate 4 gm/Sodium Chloride 100 ml @ 50 mls/hr UNSCH PRN IV 03/12/17 11:15 (Mag-Ox) 800 mg UNSCH PRN PO 03/12/17 11:15 Magnesium Sulfate 2 gm/Sodium Chloride 100 ml @ 50 mls/hr UNSCH PRN IV 03/12/17 11:15 03/13/17 23:12 (K-Phos) 2,000 mg Q4H PRN PO 03/12/17 11:15 Sodium Phosphate 30 mmol/Sodium Chloride 250 ml @ 42 mls/hr UNSCH PRN IV 03/12/17 11:15 (K-Phos) 2,000 mg UNSCH PRN PO/TUBE 03/12/17 11:15 Potassium Phosphate 30 mmol/ Sodium Chloride 260 ml @ 42 mls/hr UNSCH PRN IV 03/12/17 11:15 (Inderal) 20 mg Q8HR PO 03/12/17 14:00 03/16/17 17:22 (Free Water) VOLUME: 200 ML Q6HR G-TUBE 03/12/17 18:00 03/16/17 18:00 Allergies Allergies Coded Allergies ciprofloxacin (Verified Allergy, Severe, RASH, VOMITING, 02/14/17) Review of Systems All other ROS: ROS reviewed as documented in chart Exam I&O / VS 03/16/17 03/16/17 03/17/17 15:00 23:00 07:00 Intake Total 894 ml Balance 894 ml Intake Oral 0 ml IV Total 200 ml Tube Feeding 294 ml Other 400 ml # Voids 3 # Bowel Movements 1 Vital Signs Date Time Temp Pulse Resp B/P (MAP) Pulse Ox O2 Delivery O2 Flow Rate FiO2 03/16/17 20:00 98.4 73 21 131/60 (83) 100 03/16/17 18:16 82 03/16/17 16:00 97.9 68 16 119/58 (78) 100 03/16/17 12:00 76 03/16/17 12:00 98.3 61 16 137/62 (87) 100 03/16/17 10:19 97 21 03/16/17 08:00 98.2 65 16 145/66 (92) 100 03/16/17 04:00 69 03/16/17 04:00 97.7 68 17 159/66 (97) 100 03/16/17 00:36 100 03/16/17 00:00 97.8 70 18 145/67 (93) 100 03/16/17 00:00 75 Exam Comments alert, follow commands CN--mild right umn 7 palsey, perrl, eom intact MOTOR 4+/5 RUE and LUE Objective Micro and Labs Date/Time Source Procedure Growth Status 03/09/17 15:25 Blood Peripheral Aerobic Blood Culture - Final NO GROWTH IN 5 DAYS Complete 03/09/17 15:25 Blood Peripheral Anaerobic Blood Culture - Final NO GROWTH IN 5 DAYS Complete Maik Strickland MD PhD Mar 16, 2017 20:26
[2017-03-17] VITALS (8 sets, daily range): BP systolic 112–142; BP diastolic 50–80; PULSE 50–75; RESP 17–21; TEMP 96.4–97.9; O2SAT 97–100
[2017-03-17] MEDS: levETIRAcetam INJ 500 MG in SODIUM CHLORIDE 0.9% INJ 100 ML IV SCH ×4 (02:39→20:59)
[2017-03-17] MEDS: FREE WATER G-TUBE SCH ×4 (06:00→20:59)
[2017-03-17] MEDS: METHIMAZOLE 5 MG TAB PO SCH ×3 (06:03→20:59)
[2017-03-17] MEDS: PROPRANOLOL HCL 20 MG TAB PO SCH ×3 (06:04→20:59)
[2017-03-17] MEDS: amLODIPine BESYLATE 5 MG TAB PO SCH (09:13)
[2017-03-17] MEDS: DOCUSATE SODIUM 50 MG/SENNA 8.6 MG TAB PO SCH ×2 (09:13→20:59)
[2017-03-17] MEDS: SODIUM CHLORIDE 0.9% FLUSH 10 ML FLUSH IV FLUSH SCH ×2 (09:13→20:59)
[2017-03-17] MEDS: PANTOPRAZOLE SOD 40 MG DELAYED RELEASE TAB PO SCH (09:13)
--- NOTE | 2017-03-17 11:51 | HHI.HCPN ---
Reason for visit a. To assist with evaluation and management of symptoms including: Debility. b. To assist medical decision maker(s) with: better understanding of current medical conditions; weighing benefits/burdens of medical treatment options; making medical treatment decisions. . Subjective/Interval History Palliative care reconsulted today to assist w clarification of goals of treatment. Pt known to palliative, seen 03/10, will continue to follow and assist. Has Dobbhoff in place tolerating tube feedings. Having BMs. Vital signs stable on room air. Pending transfer to [facility] floor. Pt reported with periods of lethargy alternating with more alertness. Patient seen in room no visitors present. She is awake . She tracks examiner. She follows simple commands in Nauruan. When asked how she is feeling she mumbles incoherent speech. When asked if in pain she says stomach-- she does not answer further questions to further qualify. She appears confused. She appears very weak. Following exam call to leatha/MIL Mcclelland. Provided update on current condition, assessment, prognosis. Briefly review swallow evaluation(s) ongoing per ST, pt still w dobhoff may require PEG for longer term feeding. She understands she will have to make some decisions sometime soon. She indicates she will be visiting the pt, and bringing her adult dtr w severe MR in to see her, before making further decisions. Family/friend interactions Call to leatha Mcclelland, d/w her current condition, current clinical assessment , patient still w fluctuating neurological status, no significant improvement. She is not able to make her needs known. She remains dependent on tube feeding. She remains at risk for ongoing complications, including aspiration, review prognosis, possible trajectories. Likely she will require long-term feeding tube based on current assessments. Ms. Matthew is still trying to get arrangements for pt daughter to see the patient, she does wish to see the patient before making decisions regarding feeding tube etc. . Advance Directives Living Will: Never completed Health Care Surrogate: Copy in medical record Advance Directive Specifics Date completed: 03/10/2017. Health Care Surrogate(s): Patient has designated her marioluis Matthew as primary healthcare surrogate, alternate surrogate is sarah Matthew. . Objective Vital Signs Date Time Temp Pulse Resp B/P (MAP) Pulse Ox O2 Delivery O2 Flow Rate FiO2 03/17/17 08:00 97.6 64 21 133/58 (83) 100 03/17/17 04:14 97.9 50 21 142/80 (100) 100 03/17/17 04:00 70 03/17/17 00:00 Room Air 03/17/17 00:00 71 03/16/17 23:53 97.6 100 21 121/86 (98) 100 03/16/17 22:00 100 21 03/16/17 20:00 98.4 73 21 131/60 (83) 100 03/16/17 20:00 Room Air 03/16/17 20:00 75 03/16/17 18:16 82 03/16/17 16:00 97.9 68 16 119/58 (78) 100 03/16/17 12:00 76 03/16/17 12:00 98.3 61 16 137/62 (87) 100 Intake & Output 03/17/17 03/17/17 07:00 19:00 Intake Total 200 ml Balance 200 ml IV Total 200 ml # Voids 5 # Bowel Movements 3 Physical Exam CONSTITUTIONAL/GENERAL: This is an elderly, cachectic female resting in bed in no acute distress. TUBES/LINES/DRAINS: PIV's upper extremities, soft restraints bilateral wrist, Dobbhoff right nare, SCDs EYES: Pupils equal and round and reactive. Extraocular motions intact. No scleral icterus. No injection or drainage. ENT: Hearing appears normal. Nose without bleeding or purulent drainage. Moist oral mucosa CARDIOVASCULAR: regular rate and rhythm without murmur. No JVD. Peripheral pulses symmetric. RESPIRATORY/CHEST: Symmetric, unlabored respirations. On room air. Clear to auscultation. Breath sounds equal bilaterally. GASTROINTESTINAL: Abdomen soft, flat, non-tender, nondistended. No guarding. Bowel sounds normoactive. GENITOURINARY: Without palpable bladder distension. MUSCULOSKELETAL: Extremities without clubbing, cyanosis, or edema. Muscular atrophy to all 4 extremities. NEUROLOGICAL: Awake and alert--she does not answer questions to name, date of or location. She mumbles in soft, garbled speech,unable to understand. Appears confused She follows very simple commands. She moves all 4 extremities with generalized weakness. PSYCHIATRIC: no apparent anxiety or distress . Diagnostic Tests Laboratory Laboratory Tests Test 03/15/17 04:32 White Blood Count 9.4 TH/MM3 (4.0-11.0) Red Blood Count 2.92 MIL/MM3 (4.00-5.30) Hemoglobin 9.3 GM/DL (11.6-15.3) Hematocrit 27.2 % (35.0-46.0) Mean Corpuscular Volume 92.9 FL (80.0-100.0) Mean Corpuscular Hemoglobin 31.8 PG (27.0-34.0) Mean Corpuscular Hemoglobin Concent 34.2 % (32.0-36.0) Red Cell Distribution Width 14.6 % (11.6-17.2) Platelet Count 227 TH/MM3 (150-450) Mean Platelet Volume 9.1 FL (7.0-11.0) Neutrophils (%) (Auto) 62.7 % (16.0-70.0) Lymphocytes (%) (Auto) 25.9 % (9.0-44.0) Monocytes (%) (Auto) 8.8 % (0.0-8.0) Eosinophils (%) (Auto) 2.2 % (0.0-4.0) Basophils (%) (Auto) 0.4 % (0.0-2.0) Neutrophils # (Auto) 5.9 TH/MM3 (1.8-7.7) Lymphocytes # (Auto) 2.4 TH/MM3 (1.0-4.8) Monocytes # (Auto) 0.8 TH/MM3 (0-0.9) Eosinophils # (Auto) 0.2 TH/MM3 (0-0.4) Basophils # (Auto) 0.0 TH/MM3 (0-0.2) CBC Comment DIFF FINAL Differential Comment Blood Urea Nitrogen 20 MG/DL (7-18) Creatinine 0.24 MG/DL (0.50-1.00) Random Glucose 145 MG/DL (74-106) Total Protein 5.6 GM/DL (6.4-8.2) Albumin 1.5 GM/DL (3.4-5.0) Calcium Level 7.8 MG/DL (8.5-10.1) Alkaline Phosphatase 55 U/L (45-117) Aspartate Amino Transf (AST/SGOT) 23 U/L (15-37) Alanine Aminotransferase (ALT/SGPT) 13 U/L (10-53) Total Bilirubin 0.3 MG/DL (0.2-1.0) Sodium Level 147 MEQ/L (136-145) Potassium Level 3.2 MEQ/L (3.5-5.1) Chloride Level 110 MEQ/L (98-107) Carbon Dioxide Level 32.4 MEQ/L (21.0-32.0) Anion Gap 5 MEQ/L (5-15) Estimat Glomerular Filtration Rate 276 ML/MIN (>89) Result Diagram: 03/15/17 0432 03/15/17 0432 Microbiology Microbiology Date/Time Source Procedure Growth Status 03/09/17 15:25 Blood Peripheral Aerobic Blood Culture - Final NO GROWTH IN 5 DAYS Complete 03/09/17 15:25 Blood Peripheral Anaerobic Blood Culture - Final NO GROWTH IN 5 DAYS Complete Imaging Last Impressions Thyroid Ultrasound 03/12/17 0000 Signed Impressions: Service Date/Time: Sunday, March 12, 2017 17:54 - CONCLUSION: 1. 9 mm nodule in the mid right thyroid gland along the posterior margin. It is uncertain whether this represents a thyroid or parathyroid nodule. 2. Mild heterogeneous appearance of the thyroid gland 3. No other discrete masses. Killian Lo MD Neck CTA 03/12/17 0000 Signed Impressions: Service Date/Time: Sunday, March 12, 2017 08:22 - CONCLUSION: No acute disease. Abdiel Lerma MD Head CTA 03/12/17 0000 Signed Impressions: Service Date/Time: Sunday, March 12, 2017 08:22 - CONCLUSION: No focal stenosis, occlusion or aneurysm formation. Abdiel Lerma MD Head CT 03/12/17 0000 Signed Impressions: Service Date/Time: Sunday, March 12, 2017 07:43 - CONCLUSION: 1. Stable subdural collection along the left frontoparietal lobe which is both subacute and acute components and measures 11 mm in greatest width. 2. Diffuse cerebral atrophy. 3. No acute infarct is noted. Abdiel Lerma MD Chest X-Ray 03/12/17 0000 Signed Impressions: Service Date/Time: Sunday, March 12, 2017 07:04 - CONCLUSION: 1. Stable cardiomegaly. 2. No acute focal pulmonary infiltrate or pulmonary vascular congestion. Abdiel Lerma MD Brain MRI 03/12/17 0000 Signed Impressions: Service Date/Time: Sunday, March 12, 2017 09:46 - CONCLUSION: 1. No acute infarct, acute intracranial hemorrhage or enhancing mass lesion. 2. Stable subacute left frontal parietal and temporal subdural hematoma. 3. Cerebral atrophy. 4. Mild periventricular and subcortical white matter small vessel ischemic changes bilaterally. Abdiel Lerma MD Abdomen X-Ray 03/12/17 0000 Signed Impressions: Service Date/Time: Sunday, March 12, 2017 11:33 - CONCLUSION: No evidence of obstruction. Dobbhoff feeding tube in the fundus of the stomach Franki Winkler MD Carotid Artery Ultrasound 03/11/17 0000 Signed Impressions: Service Date/Time: Saturday, March 11, 2017 19:37 - CONCLUSION: 1. Mild bilateral carotid plaque 2. No evidence of hemodynamically significant stenosis. 3. Antegrade flow both vertebral arteries. Killian Lo MD Assessment and Plan Disease Oriented Problem List: (1) Atrial fibrillation with RVR (2) Electrolyte abnormality (3) Nausea (4) Subdural hematoma (5) Cachexia (6) Physical deconditioning Symptom Scale: (1) Debility 0-10 Scale: Unable to quantify Comment: Progressive. (2) Abdominal pain 0-10 Scale: Unable to quantify Comment: Unclear etiology. Pertinent Non-Medical Issues Psychosocial: Patient originally from [facility]. Moved to [place] 15 years ago. Patient is , 5 years ago. Patient has an adult daughter , Elle who is 47 years old with Down syndrome. 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 Primary language is Omani. Spiritual: Lutheran luisa. Legal: Advance directives completed. Ethical issues impacting care: No ethical issues identified. . Important Contacts Niece/HCS Krystin Matthew , . . Prognosis Mrs. Matthew is an 81 female with a medical history of Alzheimer's dementia, diabetes mellitus, hypertension and acute-subacute subdural hematoma. Patient presented to emergency room via EMS on 03/09/17 from custodial facility for evaluation of near syncopal episode and nausea vomiting. Patient with multiple recent acute hospitalizations, this is patient's seventh acute hospitalization in the past 4 months. Patient in and out custodial facilities, reporting progressive physical deconditioning, weight loss. Patient is cachectic, frail. Patient at high risk for further complications, continue decline and . . Code Status: No Code Plan * CODE STATUS: No code. DNR/DNI. This has been confirmed with patient's niece/ MIL Mcclelland. Community DNR left at bedside for completion. Will follow-up. * HEALTHCARE DECISION-MAKING: Patient with baseline Alzheimer's dementia. Alert and oriented x self and situation, intermittent confusion -easily reoriented. Mostly coherent conversation conducted in her [place] language [place]i. Patient with a fair understanding of her progressive decline. Has designated her niece Krystin Matthew as primary healthcare surrogate decision maker, alternate surrogate is step son Abdiel Matthew. Given patient's intermittent confusion, palliative care recommends shared decision-making with HCS/niluis Mcclelland as well as providing patient with O[place]i interpreting services -Patient communicates best in her [place] language. * GOALS OF CARE: Per initial palliative consultation 03/10/17: Patient and niece/ MIL Mcclelland electing to maximize medical management short of NO code. Patient and family wishing to discharge to custodial facility for physical straightening. Shared concerns of patient's progressive decline as evidenced by multiple acute hospitalizations within the past 4 months, multiple comorbidities, cachexia/failure to thrive and ongoing acute events. Patient's ultimate goal is to return home for independent living, shared concerns given her progressive decline and higher level of needs. Patient resides with adult daughter who has special needs secondary to Down syndrome. Reviewed with leatha that patient will likely require long-term placement. Patient and family receptive to ongoing goals of care conversation. 03/16/17 updated [facility] leatha Mcclelland. At this time goals to continue current care/ tx, some discussion RE possible PEG for halfway feeding pending ongoing ST evaluation, no decisions made yet -- she had indicated that she needed to see the pt again before making further decisions. 03/17/17 - updated [facility] RE poss PEG, conditions, prognosis. No decisions made yet, she wishes to see pt first. * SYMPTOMS: =Debility: Progressive. Patient with multiple acute hospitalizations in the past 4 months. Has been receiving rehabilitation at custodial facility. Patient is cachectic, profound physical deconditioning with history of multiple falls. Likely to continue to worsen. Patient and family requesting discharge to custodial facility for physical straightening. * = Abdominal pain: Unclear etiology. Patient with similar complaints on prior hospitalizations. GI has been previously consulted in February, -No acute findings. Passing flatus, KUB negative for obstruction. Tolerating tube feeding. No apparent pathology. Would avoid use of opiates as this may further alter patient's mental status, would further slow GI motility. * = dysphagia - still w Dobhoff NGT feedings, and fluctuating mental status. High risk for aspiration. At this time based on her clinical course thus far appears likely she would require a longer term feeding tube placed to meet nutritional needs, if goals are aggressive. Rec. consult GI for possible PEG tube. * Palliative care will continue to follow-up for further clarifications of goals of care as patient's clinical course continues to evolve. . Attestation To help prompt me to consider important information that might be impacting today's encounter and assessment, information from prior notes written by myself or my colleagues may have been "brought forward" into today's note. My signature on this note, however, is an attestation that I personally performed the exam, history, and/or decision-making noted today, and, unless otherwise indicated, the interactions with patient, family, and staff as well as the review of records all occurred today. I also attest that the listed assessment and stated plan reflect my best clinical judgment today based on the combination of historical information, prior notes, and today's exam/ interactions. When time spent is documented, it refers only to time spent today by the signer, or if indicated, combined time spent today by collaborating physician/nurse practitioner. Lyn Mcgraw Mar 17, 2017 11:51
--- NOTE | 2017-03-17 13:26 | HHI.CCPN ---
Subjective Remarks/Hospital Course 03/12: This is an 81-year-old speaking female. Date of admission 2017. Date of consultation 03/12/2017. Past medical history includes hypothyroidism, hypertension, diabetes and gastroesophageal reflux disease. Patient was admitted February/2017. For evaluation of subdural hematoma. Was evaluated by neurosurgery recommended nonoperative/conservative management. Also has history of a chronic right subdural hygroma and normal pressure hydrocephalus. This hospitalization, admitted for syncopal episode. Workup included neurology consultation. CT brain revealed stable left subdural hematoma 11 mm located no frontal parietal temporal region. This morning, patient acute onset of altered mental status. Transfer to ICU. MRI brain reveals stable left frontal parietal temporal subdural hematoma. EEG has been ordered. Started on levetiracetam 500 mg IV every 6 hours by neurology bleed this is a seizure. Patient is Bel[place]ian-speaking but following commands appropriately in [place] language. Focal deficits include right upper extremity weakness/pronator drift otherwise unremarkable. Denies chest pain, shortness of breath or abdominal pain. 03/13: Resting in bed. Tolerating tube feeds. Has baseline dementia. Not following commands. 03/14: Awake and alert. Resting in bed. Tolerating tube feeds. Does not follow commands. Has baseline dementia. Stopping quarter normal saline. 03/15: Awake and alert. Tolerating tube feeds. Complains of pain. Has baseline dementia. 03/16: No change in neuro status. 03/17: She protecst her airway well but will need a feeding tube if we are to continue care home care in a SNF. Will ask GI to see. Objective Vital Signs Date Time Temp Pulse Resp B/P (MAP) Pulse Ox O2 Delivery O2 Flow Rate FiO2 03/17/17 12:00 96.4 61 19 124/59 (80) 100 03/17/17 00:00 Room Air 03/16/17 22:00 21 Intake and Output 03/17/17 03/17/17 03/18/17 08:00 16:00 00:00 Intake Total 100 ml Balance 100 ml Result Diagram: 03/15/17 0432 03/15/17 0432 Imaging Last Impressions Neck CTA 03/12/17 0000 Signed Impressions: Service Date/Time: Sunday, March 12, 2017 08:22 - CONCLUSION: No acute disease. Abdiel Lerma MD Head CTA 1/7/18 0000 Signed Impressions: Service Date/Time: Sunday, March 12, 2017 08:22 - CONCLUSION: No focal stenosis, occlusion or aneurysm formation. Abdiel Lerma MD Head CT 03/12/17 Signed Impressions: Service Date/Time: Sunday, March 12, 2017 07:43 - CONCLUSION: 1. Stable subdural collection along the left frontoparietal lobe which is both subacute and acute components and measures 11 mm in greatest width. 2. Diffuse cerebral atrophy. 3. No acute infarct is noted. Abdiel Lerma MD Chest X-Ray 03/12/17 Signed Impressions: Service Date/Time: Sunday, March 12, 2017 07:04 - CONCLUSION: 1. Stable cardiomegaly. 2. No acute focal pulmonary infiltrate or pulmonary vascular congestion. Abdiel Lerma MD Brain MRI 03/12/17 Signed Impressions: Service Date/Time: Sunday, March 12, 2017 09:46 - CONCLUSION: 1. No acute infarct, acute intracranial hemorrhage or enhancing mass lesion. 2. Stable subacute left frontal parietal and temporal subdural hematoma. 3. Cerebral atrophy. 4. Mild periventricular and subcortical white matter small vessel ischemic changes bilaterally. Abdiel Lerma MD Carotid Artery Ultrasound 03/11/17 Signed Impressions: Service Date/Time: Saturday, March 11, 2017 19:37 - CONCLUSION: 1. Mild bilateral carotid plaque 2. No evidence of hemodynamically significant stenosis. 3. Antegrade flow both vertebral arteries. Killian Lo MD Objective Remarks GENERAL: 81-year-old female, resting in bed, no acute distress SKIN: Warm and dry. HEAD: Atraumatic. Normocephalic. EYES: Pupils equal and round 2 mm bilaterally and reactive. No scleral icterus. No injection or drainage. ENT: No nasal bleeding or discharge. Mucous membranes pink and moist. NECK: Trachea midline. Airway widely patent. CARDIOVASCULAR: Tachycardia, RR. S1, S2. Without murmur, no JVD. RESPIRATORY: No accessory muscle use. Clear to auscultation. Breath sounds equal bilaterally. GASTROINTESTINAL: Abdomen soft, non-tender, nondistended. No guarding MUSCULOSKELETAL: Extremities without clubbing, cyanosis, or edema. No obvious deformities. NEUROLOGICAL: Awake and alert,slow to respond. No obvious cranial nerve deficits. Positive right upper extremity weakness. 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 CT brain revealed stable left frontal parietal temporal subdural hematoma with possible acute and subacute components CTA brain and neck showed no signs of occlusive disease EEG done. Started on levetiracetam 500 mg IV every [address] Strickland Neurosurgery evaluation - conservative therapy no intervention at this time Patient is on oxycodone/acetaminophen 5-10/325 one tab every 6 hours as needed pain with morphine sulfate 4 mg IV every hour when necessary breakthrough through 10 PT/OT/ST evaluate and treat CV: Sinus tachycardia History of SVT Elevated troponin Patient is currently on propranolol 20 mg every 8 hours Previously on metoprolol 25 mg twice a day Continue amlodipine 5 mg daily Echocardiogram revealed EF 65-70%. Mild TR/AZ. Pulmonary arterial pressures 55 -60 mmHg Resp: Nasal cannula to maintain saturations greater than equal to 92% Incentive spirometry while awake GI: Hypoalbuminemia Gastroesophageal reflux disease History of gastric ulcer Heart healthy diet Continue pantoprazole 40 mg by mouth daily/home medication Docusate sodium/senna 1 tablet twice a day for bowel regimen : No indication for Yip catheter Endo: Hyperthyroidism Continue methimazole but increased to 5-10 mg 3 times a day Thyroid ultrasound TSI was elevated 440. Likely Graves' disease Keep you antibodies/thyroglobulin pending TSH 0.005 on admission. Elevated T44.4 Sliding-scale insulin Novolog with Accu-Cheks before meals/at bedtime to maintain euglycemia/low regimen Renal: Monitor urine output Accurate I's and Os Currently one quarter normal saline at 84 cc an hour with free water 200 cc every 6 hours Recheck BMP in a.m. Heme: Normocytic anemia Monitor CBC daily. Follow trends ID: Monitor for infection FEN: Hypernatremia Hypokalemia Tolerating tube feedings with vital 1.5 goal 45 cc an hour MSK: PT/OT evaluate and treat Access - Utilize peripheral IV. Central line if indicated Prophylaxis - GI - pantoprazole - DVT - SCD/holding pharmacological prophylaxis until okayed with neurosurgery Discussed with Dr. Taveras from neurosurgery on 03/13. Okay to transfer out of ICU , no neurosurgical intervention planned. Palliative care following to assist with deciding goals of therapy. Transfer to hospitalist service for further medical management. Critical care will be signing off, please reconsult if needed. Mahamed Green MD Mar 17, 2017 13:26
--- NOTE | 2017-03-17 15:12 | PD.CONS ---
HPI History of Present Illness This is a 81 year old F who is a poor historian and most of the information was obtained through review of the medical records. Per admission notes, patient first presented to the emergency department for evaluation of a syncopal episode witnessed by ID staff. It was also reported that patient had nausea and vomiting. Pt was found to have a-fib with RVR on presentation and CT scan of head showed a stable subdural hematoma with subacute and acute components without midline shift. GI has been consulted due to patients inadequate PO intake. Speech therapy has evaluated the patient and determined the patient to have severe oropharyngeal dysphagia and inadequate nutritional intake. Pt currently NPO with TF, vital 1.5 with goal rate of 40mL/hr through Dobbhoff. (Jeannine Holloway) PFSH Past Medical History Alzheimer's dementia Diabetes mellitus Hypertension Hyperlipidemia Subdural hematoma SVT H. pylori gastritis/peptic ulcer . Past Surgical History Appendectomy Cholecystectomy Breast reduction . (Jeannine Holloway) Coded Allergies: ciprofloxacin (Verified Allergy, Severe, RASH, VOMITING, 02/14/17) Family History Patient has had daughter with Down syndrome. . Social History No alcohol, tobacco or illicit drug use (Jeannine Holloway) Review of Systems unable to obtain, pt says yes to all questions asked (Jeannine Holloway) GI Exam Vitals I&O Vital Signs Date Time Temp Pulse Resp B/P (MAP) Pulse Ox O2 Delivery O2 Flow Rate FiO2 03/17/17 12:00 96.4 61 19 124/59 (80) 100 03/17/17 08:00 97.6 64 21 133/58 (83) 100 03/17/17 04:14 97.9 50 21 142/80 (100) 100 03/17/17 04:00 70 03/17/17 00:00 Room Air 03/17/17 00:00 71 03/16/17 23:53 97.6 100 21 121/86 (98) 100 03/16/17 22:00 100 21 03/16/17 20:00 98.4 73 21 131/60 (83) 100 03/16/17 20:00 Room Air 03/16/17 20:00 75 03/16/17 18:16 82 03/16/17 16:00 97.9 68 16 119/58 (78) 100 I/O 03/16/17 03/16/17 03/16/17 03/17/17 03/17/17 03/17/17 07:00 15:00 23:00 07:00 15:00 23:00 Intake Total 100 ml 994 ml 100 ml Output Total 400 ml Balance -300 ml 994 ml 100 ml Intake Oral 0 ml 0 ml IV Total 100 ml 300 ml 100 ml Tube Feeding 294 ml Other 400 ml Output Urine Total 400 ml # Voids 3 3 5 # Bowel Movements 1 3 Imaging Last Impressions Thyroid Ultrasound 03/12/17 0000 Signed Impressions: Service Date/Time: Sunday, March 12, 2017 17:54 - CONCLUSION: 1. 9 mm nodule in the mid right thyroid gland along the posterior margin. It is uncertain whether this represents a thyroid or parathyroid nodule. 2. Mild heterogeneous appearance of the thyroid gland 3. No other discrete masses. Killian Lo MD Neck CTA 03/12/17 0000 Signed Impressions: Service Date/Time: Sunday, March 12, 2017 08:22 - CONCLUSION: No acute disease. Abdiel Lerma MD Head CTA 03/12/17 0000 Signed Impressions: Service Date/Time: Sunday, March 12, 2017 08:22 - CONCLUSION: No focal stenosis, occlusion or aneurysm formation. Abdiel Lerma MD Head CT 03/12/17 0000 Signed Impressions: Service Date/Time: Sunday, March 12, 2017 07:43 - CONCLUSION: 1. Stable subdural collection along the left frontoparietal lobe which is both subacute and acute components and measures 11 mm in greatest width. 2. Diffuse cerebral atrophy. 3. No acute infarct is noted. Abdiel Lerma MD Chest X-Ray 03/12/17 0000 Signed Impressions: Service Date/Time: Sunday, March 12, 2017 07:04 - CONCLUSION: 1. Stable cardiomegaly. 2. No acute focal pulmonary infiltrate or pulmonary vascular congestion. Abdiel Lerma MD Brain MRI 03/12/17 0000 Signed Impressions: Service Date/Time: Sunday, March 12, 2017 09:46 - CONCLUSION: 1. No acute infarct, acute intracranial hemorrhage or enhancing mass lesion. 2. Stable subacute left frontal parietal and temporal subdural hematoma. 3. Cerebral atrophy. 4. Mild periventricular and subcortical white matter small vessel ischemic changes bilaterally. Abdiel Lerma MD Abdomen X-Ray 03/12/17 0000 Signed Impressions: Service Date/Time: Sunday, March 12, 2017 11:33 - CONCLUSION: No evidence of obstruction. Dobbhoff feeding tube in the fundus of the stomach Franki Winkler MD Carotid Artery Ultrasound 03/11/17 0000 Signed Impressions: Service Date/Time: Saturday, March 11, 2017 19:37 - CONCLUSION: 1. Mild bilateral carotid plaque 2. No evidence of hemodynamically significant stenosis. 3. Antegrade flow both vertebral arteries. Killian Lo MD Laboratory Date/Time Source Procedure Growth Status 03/09/17 15:25 Blood Peripheral Aerobic Blood Culture - Final NO GROWTH IN 5 DAYS Complete 03/09/17 15:25 Blood Peripheral Anaerobic Blood Culture - Final NO GROWTH IN 5 DAYS Complete Physical Examination HEENT: Normocephalic; atraumatic CHEST: Even/unlabored CARDIAC: Irregular ABDOMEN: Soft, nondistended, no hepatosplenomegaly, bowel sounds active. Dobbhoff R nostril to TF, vital 1.5 EXTREMITIES: No clubbing, cyanosis, or edema. SKIN: Normal; no rash; no jaundice. WATCH REPAIR TECHNICIAN: Alert and oriented x 1 (Jeannine Holloway) Assessment and Plan Plan Assessment: - Inadequate PO intake- Pt came from ID, history of subdural hematoma. Presented to ER after witnessed syncopal episode, was found to have acute and subacute changes to subdural hematoma as well as a-fib RVR. Pt was also noted to have nausea and vomiting. Per speech therapy notes pt has severe oropharyngeal dysphagia and nutrition assessment notes pt to be at high nutritional risk due to inadequate PO intake. Pt now with Dobbhoff and TF, vital 1.5 with goal rate 40mL/hr. Will plan for EGD with PEG tube placement on Monday. Abdomen x-ray noted (03/12) --> No evidence of obstruction Plan: - EGD with PEG tube placement on Monday - Hold TF and NPO after MN on Monday - Obtain consents - Continue Protonix - Continue Reglan as needed - Continue Zofran as needed - Monitor labs - Supportive care - Further recommendations to follow based on results of above Pt has been seen and examined by myself and Dr. Hanson and this note is written on her behalf (Jeannine Holloway) Physician Comments seen, examined agree with above (Breann Hanson MD) Jeannine Holloway Mar 17, 2017 15:12 Breann Hanson MD Mar 17, 2017 21:54
[2017-03-18] VITALS (10 sets, daily range): BP systolic 110–145; BP diastolic 53–64; PULSE 68–88; RESP 17–24; TEMP 97.6–98.7; O2SAT 98–100
[2017-03-18] MEDS: levETIRAcetam INJ 500 MG in SODIUM CHLORIDE 0.9% INJ 100 ML IV SCH ×4 (03:20→21:54)
[2017-03-18 05:18] LABS: INTERNATIONAL NORMALIZED RATIO 1.1 RATIO
[2017-03-18] MEDS: FREE WATER G-TUBE SCH ×3 (05:51→16:45)
[2017-03-18] MEDS: METHIMAZOLE 5 MG TAB PO SCH ×3 (06:09→22:00)
[2017-03-18] MEDS: PROPRANOLOL HCL 20 MG TAB PO SCH ×3 (06:09→21:55)
[2017-03-18] MEDS: SODIUM CHLORIDE 0.9% FLUSH 10 ML FLUSH IV FLUSH SCH ×2 (09:00→21:00)
[2017-03-18] MEDS: amLODIPine BESYLATE 5 MG TAB PO SCH (10:02)
[2017-03-18] MEDS: DOCUSATE SODIUM 50 MG/SENNA 8.6 MG TAB PO SCH ×2 (10:02→21:55)
[2017-03-18] MEDS: PANTOPRAZOLE SOD 40 MG DELAYED RELEASE TAB PO SCH (10:02)
--- NOTE | 2017-03-18 10:57 | HHI.CCPN ---
Subjective Remarks/Hospital Course 03/12: This is an 81-year-old speaking female. Date of admission 2017. Date of consultation 03/12/2017. Past medical history includes hypothyroidism, hypertension, diabetes and gastroesophageal reflux disease. Patient was admitted February/2017. For evaluation of subdural hematoma. Was evaluated by neurosurgery recommended nonoperative/conservative management. Also has history of a chronic right subdural hygroma and normal pressure hydrocephalus. This hospitalization, admitted for syncopal episode. Workup included neurology consultation. CT brain revealed stable left subdural hematoma 11 mm located no frontal parietal temporal region. This morning, patient acute onset of altered mental status. Transfer to ICU. MRI brain reveals stable left frontal parietal temporal subdural hematoma. EEG has been ordered. Started on levetiracetam 500 mg IV every 6 hours by neurology bleed this is a seizure. Patient is Lithuanian-speaking but following commands appropriately in [place] language. Focal deficits include right upper extremity weakness/pronator drift otherwise unremarkable. Denies chest pain, shortness of breath or abdominal pain. 03/13: Resting in bed. Tolerating tube feeds. Has baseline dementia. Not following commands. 03/14: Awake and alert. Resting in bed. Tolerating tube feeds. Does not follow commands. Has baseline dementia. Stopping quarter normal saline. 03/15: Awake and alert. Tolerating tube feeds. Complains of pain. Has baseline dementia. 03/16: No change in neuro status. 03/17: She protects her airway well but will need a feeding tube if we are to continue halfway care in a SNF. Will ask GI to see. 03/18: PEG is planned for monday. Objective Vital Signs Date Time Temp Pulse Resp B/P (MAP) Pulse Ox O2 Delivery O2 Flow Rate FiO2 03/18/17 09:49 99 21 03/18/17 08:20 68 03/18/17 08:00 97.7 17 126/58 (80) 03/18/17 07:49 Room Air Intake and Output 03/18/17 03/18/17 03/19/17 08:00 16:00 00:00 Intake Total 0 ml 0 ml Balance 0 ml 0 ml Result Diagram: 03/15/17 0432 03/15/17 0432 Imaging Last Impressions Neck CTA 03/12/17 0000 Signed Impressions: Service Date/Time: Sunday, March 12, 2017 08:22 - CONCLUSION: No acute disease. Abdiel Lerma MD Head CTA 03/12/17 0000 Signed Impressions: Service Date/Time: Sunday, March 12, 2017 08:22 - CONCLUSION: No focal stenosis, occlusion or aneurysm formation. Abdiel Lerma MD Head CT 03/12/17 0000 Signed Impressions: Service Date/Time: Sunday, March 12, 2017 07:43 - CONCLUSION: 1. Stable subdural collection along the left frontoparietal lobe which is both subacute and acute components and measures 11 mm in greatest width. 2. Diffuse cerebral atrophy. 3. No acute infarct is noted. Abdiel Lerma MD Chest X-Ray 03/12/17 0000 Signed Impressions: Service Date/Time: Sunday, March 12, 2017 07:04 - CONCLUSION: 1. Stable cardiomegaly. 2. No acute focal pulmonary infiltrate or pulmonary vascular congestion. Abdiel Lerma MD Brain MRI 03/12/17 0000 Signed Impressions: Service Date/Time: Sunday, March 12, 2017 09:46 - CONCLUSION: 1. No acute infarct, acute intracranial hemorrhage or enhancing mass lesion. 2. Stable subacute left frontal parietal and temporal subdural hematoma. 3. Cerebral atrophy. 4. Mild periventricular and subcortical white matter small vessel ischemic changes bilaterally. Abdiel Lerma MD Carotid Artery Ultrasound 03/11/17 0000 Signed Impressions: Service Date/Time: Saturday, March 11, 2017 19:37 - CONCLUSION: 1. Mild bilateral carotid plaque 2. No evidence of hemodynamically significant stenosis. 3. Antegrade flow both vertebral arteries. Killian Lo MD Objective Remarks GENERAL: 81-year-old female, resting in bed, no acute distress SKIN: Warm and dry. HEAD: Atraumatic. Normocephalic. EYES: Pupils equal and round 2 mm bilaterally and reactive. No scleral icterus. No injection or drainage. ENT: No nasal bleeding or discharge. Mucous membranes pink and moist. NECK: Trachea midline. Airway widely patent. CARDIOVASCULAR: Tachycardia, RR. S1, S2. Without murmur, no JVD. RESPIRATORY: No accessory muscle use. Clear to auscultation. Breath sounds equal bilaterally. GASTROINTESTINAL: Abdomen soft, non-tender, nondistended. No guarding MUSCULOSKELETAL: Extremities without clubbing, cyanosis, or edema. No obvious deformities. NEUROLOGICAL: Awake and alert,slow to respond. No obvious cranial nerve deficits. Positive right upper extremity weakness. 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 CT brain revealed stable left frontal parietal temporal subdural hematoma with possible acute and subacute components CTA brain and neck showed no signs of occlusive disease EEG done. Started on levetiracetam 500 mg IV every [address] Strickland Neurosurgery evaluation - conservative therapy no intervention at this time Patient is on oxycodone/acetaminophen 5-10/325 one tab every 6 hours as needed pain with morphine sulfate 4 mg IV every hour when necessary breakthrough through PT/OT/ST evaluate and treat CV: Sinus tachycardia History of SVT Elevated troponin Patient is currently on propranolol 20 mg every 8 hours Previously on metoprolol 25 mg twice a day Continue amlodipine 5 mg daily Echocardiogram revealed EF 65-70%. Mild TR/LA. Pulmonary arterial pressures 55 -60 mmHg Resp: Nasal cannula to maintain saturations greater than equal to 92% Incentive spirometry while awake GI: Hypoalbuminemia Gastroesophageal reflux disease History of gastric ulcer Heart healthy diet Continue pantoprazole 40 mg by mouth daily/home medication Docusate sodium/senna 1 tablet twice a day for bowel regimen : No indication for Yip catheter Endo: Hyperthyroidism Continue methimazole but increased to 5-10 mg 3 times a day Thyroid ultrasound TSI was elevated 440. Likely Graves' disease Keep you antibodies/thyroglobulin pending TSH 0.005 on admission. Elevated T44.4 Sliding-scale insulin Novolog with Accu-Cheks before meals/at bedtime to maintain euglycemia/low regimen Renal: Monitor urine output Accurate I's and Os Currently one quarter normal saline at 84 cc an hour with free water 200 cc every 6 hours Recheck BMP in a.m. Heme: Normocytic anemia Monitor CBC daily. Follow trends ID: Monitor for infection FEN: Hypernatremia Hypokalemia Tolerating tube feedings with vital 1.5 goal 45 cc an hour MSK: PT/OT evaluate and treat Access - Utilize peripheral IV. Central line if indicated Prophylaxis - GI - pantoprazole - DVT - SCD/holding pharmacological prophylaxis until okayed with neurosurgery Discussed with Dr. Taveras from neurosurgery on 03/13. Okay to transfer out of ICU , no neurosurgical intervention planned. Palliative care following to assist with deciding goals of therapy. Transfer to hospitalist service for further medical management. Critical care will be signing off, please reconsult if needed. Mahamed Green MD Mar 18, 2017 10:57
[2017-03-19] VITALS (7 sets, daily range): BP systolic 108–137; BP diastolic 47–63; PULSE 55–87; RESP 15–26; TEMP 96.8–98.7; O2SAT 99–100
[2017-03-19] MEDS: PANTOPRAZOLE SOD 40 MG DELAYED RELEASE TAB PO SCH (09:03)
[2017-03-19] MEDS: DOCUSATE SODIUM 50 MG/SENNA 8.6 MG TAB PO SCH ×2 (09:03→20:57)
[2017-03-19] MEDS: amLODIPine BESYLATE 5 MG TAB PO SCH (09:03)
[2017-03-19] MEDS: SODIUM CHLORIDE 0.9% FLUSH 10 ML FLUSH IV FLUSH SCH ×2 (09:03→20:57)
[2017-03-19] MEDS: levETIRAcetam INJ 500 MG in SODIUM CHLORIDE 0.9% INJ 100 ML IV SCH ×3 (09:06→20:56)
--- NOTE | 2017-03-19 09:20 | HHI.CCPN ---
Subjective Remarks/Hospital Course 03/12: This is an 81-year-old speaking female. Date of admission 2017. Date of consultation 03/12/2017. Past medical history includes hypothyroidism, hypertension, diabetes and gastroesophageal reflux disease. Patient was admitted February/2017. For evaluation of subdural hematoma. Was evaluated by neurosurgery recommended nonoperative/conservative management. Also has history of a chronic right subdural hygroma and normal pressure hydrocephalus. This hospitalization, admitted for syncopal episode. Workup included neurology consultation. CT brain revealed stable left subdural hematoma 11 mm located no frontal parietal temporal region. This morning, patient acute onset of altered mental status. Transfer to ICU. MRI brain reveals stable left frontal parietal temporal subdural hematoma. EEG has been ordered. Started on levetiracetam 500 mg IV every 6 hours by neurology bleed this is a seizure. Patient is Sinhala-speaking but following commands appropriately in [place] language. Focal deficits include right upper extremity weakness/pronator drift otherwise unremarkable. Denies chest pain, shortness of breath or abdominal pain. 03/13: Resting in bed. Tolerating tube feeds. Has baseline dementia. Not following commands. 03/14: Awake and alert. Resting in bed. Tolerating tube feeds. Does not follow commands. Has baseline dementia. Stopping quarter normal saline. 03/15: Awake and alert. Tolerating tube feeds. Complains of pain. Has baseline dementia. 03/16: No change in neuro status. 03/17: She protects her airway well but will need a feeding tube if we are to continue [facility] care in a SNF. Will ask GI to see. 03/18: PEG is planned for monday. 03/19: Will require placement after PEG. Anticipate ongoing clinical deterioration. Objective Vital Signs Date Time Temp Pulse Resp B/P (MAP) Pulse Ox O2 Delivery O2 Flow Rate FiO2 03/19/17 08:12 100 21 03/19/17 04:00 98.5 72 21 108/47 (67) 03/18/17 20:00 Room Air Result Diagram: 03/15/17 0432 03/15/17 0432 Imaging Last Impressions Neck CTA 03/12/17 0000 Signed Impressions: Service Date/Time: Sunday, March 12, 2017 08:22 - CONCLUSION: No acute disease. Abdiel Lerma MD Head CTA 03/12/17 0000 Signed Impressions: Service Date/Time: Sunday, March 12, 2017 08:22 - CONCLUSION: No focal stenosis, occlusion or aneurysm formation. Abdiel Lerma MD Head CT 03/12/17 0000 Signed Impressions: Service Date/Time: Sunday, March 12, 2017 07:43 - CONCLUSION: 1. Stable subdural collection along the left frontoparietal lobe which is both subacute and acute components and measures 11 mm in greatest width. 2. Diffuse cerebral atrophy. 3. No acute infarct is noted. Abdiel Lerma MD Chest X-Ray 03/12/17 0000 Signed Impressions: Service Date/Time: Sunday, March 12, 2017 07:04 - CONCLUSION: 1. Stable cardiomegaly. 2. No acute focal pulmonary infiltrate or pulmonary vascular congestion. Abdiel Lerma MD Brain MRI 03/12/17 0000 Signed Impressions: Service Date/Time: Sunday, March 12, 2017 09:46 - CONCLUSION: 1. No acute infarct, acute intracranial hemorrhage or enhancing mass lesion. 2. Stable subacute left frontal parietal and temporal subdural hematoma. 3. Cerebral atrophy. 4. Mild periventricular and subcortical white matter small vessel ischemic changes bilaterally. Abdiel Lerma MD Carotid Artery Ultrasound 03/11/17 0000 Signed Impressions: Service Date/Time: Saturday, March 11, 2017 19:37 - CONCLUSION: 1. Mild bilateral carotid plaque 2. No evidence of hemodynamically significant stenosis. 3. Antegrade flow both vertebral arteries. Killian Lo MD Objective Remarks GENERAL: 81-year-old female, resting in bed, no acute distress SKIN: Warm and dry. HEAD: Atraumatic. Normocephalic. EYES: Pupils equal and round 2 mm bilaterally and reactive. No scleral icterus. No injection or drainage. ENT: No nasal bleeding or discharge. Mucous membranes pink and moist. NECK: Trachea midline. Airway widely patent. CARDIOVASCULAR: RRR. S1, S2. Without murmur, no JVD. RESPIRATORY: No accessory muscle use. Clear to auscultation. Breath sounds equal bilaterally. GASTROINTESTINAL: Abdomen soft, non-tender, nondistended. No guarding. BS active. MUSCULOSKELETAL: Extremities without clubbing, cyanosis, or edema. No obvious deformities. Well perfused. NEUROLOGICAL: Awake and alert, slow to respond. No obvious cranial nerve deficits. Tracks with eyes, attempts to talk. Positive right upper extremity weakness. 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 CT brain revealed stable left frontal parietal temporal subdural hematoma with possible acute and subacute components CTA brain and neck showed no signs of occlusive disease EEG done. Started on levetiracetam 500 mg IV every [address] Strickland Neurosurgery evaluation - conservative therapy no intervention at this time Patient is on oxycodone/acetaminophen 5-10/325 one tab every 6 hours as needed pain with morphine sulfate 4 mg IV every hour when necessary breakthrough through 10 PT/OT/ST evaluate and treat CV: Sinus tachycardia History of SVT Elevated troponin Patient is currently on propranolol 20 mg every 8 hours Previously on metoprolol 25 mg twice a day Continue amlodipine 5 mg daily Echocardiogram revealed EF 65-70%. Mild TR/FL. Pulmonary arterial pressures 55 -60 mmHg Resp: Nasal cannula to maintain saturations greater than equal to 92% Incentive spirometry while awake GI: Hypoalbuminemia Gastroesophageal reflux disease History of gastric ulcer Heart healthy diet Continue pantoprazole 40 mg by mouth daily/home medication Docusate sodium/senna 1 tablet twice a day for bowel regimen PEG insertion 03/20 : No indication for Yip catheter Endo: Hyperthyroidism Continue methimazole but increased to 5-10 mg 3 times a day Thyroid ultrasound TSI was elevated 440. Likely Graves' disease Keep you antibodies/thyroglobulin pending TSH 0.005 on admission. Elevated T44.4 Sliding-scale insulin Novolog with Accu-Cheks before meals/at bedtime to maintain euglycemia/low regimen Renal: Monitor urine output Accurate I's and Os Recheck BMP in a.m. Heme: Normocytic anemia Monitor CBC daily. Follow trends ID: Monitor for infection FEN: Hypernatremia Hypokalemia Tolerating tube feedings with vital 1.5 goal 45 cc an hour MSK: PT/OT evaluate and treat Access - Utilize peripheral IV. Central line if indicated Prophylaxis - GI - pantoprazole - DVT - SCD/holding pharmacological prophylaxis until okayed with neurosurgery Discussed with Dr. Taveras from neurosurgery on 03/13. Okay to transfer out of ICU , no neurosurgical intervention planned. Palliative care following to assist with deciding goals of therapy. Transfer to hospitalist service for further medical management. Mahamed Green MD Mar 19, 2017 09:20
[2017-03-19] MEDS: FREE WATER G-TUBE SCH ×3 (12:00→16:50)
[2017-03-19] MEDS: PROPRANOLOL HCL 20 MG TAB PO SCH ×3 (14:00→21:08)
[2017-03-19] MEDS: METHIMAZOLE 5 MG TAB PO SCH ×3 (14:00→21:08)
--- NOTE | 2017-03-19 16:31 | HHI.GIFU ---
Subjective Remarks Pt resting in bed, in no apparent distress. Dobbhoff to R nostril with Vital 1.5 TF running. (Jeannine Holloway) Objective Vitals I&O Vital Signs Date Time Temp Pulse Resp B/P (MAP) Pulse Ox O2 Delivery O2 Flow Rate FiO2 03/19/17 12:00 55 03/19/17 12:00 97.9 75 21 132/57 (82) 100 03/19/17 08:12 100 21 03/19/17 08:00 55 03/19/17 08:00 96.8 71 15 124/59 (80) 99 03/19/17 04:00 98.5 72 21 108/47 (67) 100 03/19/17 04:00 62 03/19/17 00:00 98.5 87 26 137/63 (87) 99 03/19/17 00:00 72 03/18/17 20:00 Room Air 03/18/17 20:00 98.7 74 22 110/53 (72) 03/18/17 20:00 88 03/18/17 16:43 76 I/O 03/18/17 03/18/17 03/18/17 03/19/17 03/19/17 03/19/17 07:00 15:00 23:00 07:00 15:00 23:00 Intake Total 0 ml 0 ml 2680 ml 105 ml Balance 0 ml 0 ml 2680 ml 105 ml Intake Oral 0 ml IV Total 0 ml 200 ml 105 ml Tube Feeding 2280 ml Other 200 ml # Voids 2 4 1 # Bowel Movements 1 Laboratory Date/Time Source Procedure Growth Status 03/09/17 15:25 Blood Peripheral Aerobic Blood Culture - Final NO GROWTH IN 5 DAYS Complete 03/09/17 15:25 Blood Peripheral Anaerobic Blood Culture - Final NO GROWTH IN 5 DAYS Complete Imaging Last Impressions Thyroid Ultrasound 03/12/17 0000 Signed Impressions: Service Date/Time: Sunday, March 12, 2017 17:54 - CONCLUSION: 1. 9 mm nodule in the mid right thyroid gland along the posterior margin. It is uncertain whether this represents a thyroid or parathyroid nodule. 2. Mild heterogeneous appearance of the thyroid gland 3. No other discrete masses. Killian Lo MD Neck CTA 03/12/17 0000 Signed Impressions: Service Date/Time: Sunday, March 12, 2017 08:22 - CONCLUSION: No acute disease. Abdiel Lerma MD Head CTA 03/12/17 0000 Signed Impressions: Service Date/Time: Sunday, March 12, 2017 08:22 - CONCLUSION: No focal stenosis, occlusion or aneurysm formation. Abdiel Lerma MD Head CT 03/12/17 0000 Signed Impressions: Service Date/Time: Sunday, March 12, 2017 07:43 - CONCLUSION: 1. Stable subdural collection along the left frontoparietal lobe which is both subacute and acute components and measures 11 mm in greatest width. 2. Diffuse cerebral atrophy. 3. No acute infarct is noted. Abdiel Lerma MD Chest X-Ray 03/12/17 0000 Signed Impressions: Service Date/Time: Sunday, March 12, 2017 07:04 - CONCLUSION: 1. Stable cardiomegaly. 2. No acute focal pulmonary infiltrate or pulmonary vascular congestion. Abdiel Lerma MD Brain MRI 03/12/17 0000 Signed Impressions: Service Date/Time: Sunday, March 12, 2017 09:46 - CONCLUSION: 1. No acute infarct, acute intracranial hemorrhage or enhancing mass lesion. 2. Stable subacute left frontal parietal and temporal subdural hematoma. 3. Cerebral atrophy. 4. Mild periventricular and subcortical white matter small vessel ischemic changes bilaterally. Abdiel Lerma MD Abdomen X-Ray 03/12/17 0000 Signed Impressions: Service Date/Time: Sunday, March 12, 2017 11:33 - CONCLUSION: No evidence of obstruction. Dobbhoff feeding tube in the fundus of the stomach Franki Winkler MD Carotid Artery Ultrasound 03/11/17 0000 Signed Impressions: Service Date/Time: Saturday, March 11, 2017 19:37 - CONCLUSION: 1. Mild bilateral carotid plaque 2. No evidence of hemodynamically significant stenosis. 3. Antegrade flow both vertebral arteries. Killian Lo MD Physical Exam HEENT: Normocephalic, atraumatic CHEST: Even/unlabored CARDIAC: RRR ABDOMEN: Soft, nondistended, bowel sounds active. Dobbhoff R nostril- TF Vital 1.5 EXTREMITIES: No clubbing, cyanosis, or edema. SKIN: Normal; no rash; no jaundice. 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 Presented to ER after witnessed syncopal episode, was found to have acute and subacute changes to subdural hematoma as well as a-fib RVR. Pt was also noted to have nausea and vomiting. Per speech therapy notes pt has severe oropharyngeal dysphagia and nutrition assessment notes pt to be at high nutritional risk due to inadequate PO intake. Pt now with Dobbhoff and TF, vital 1.5 with goal rate 40mL/hr. Will plan for EGD with PEG tube placement on Monday. Abdomen x-ray noted (03/12) --> No evidence of obstruction (03/18) Pt continued with TF through Dobbhoff. No complaints at this time. Abdomen remains soft and bowel sounds active. Plan for PEG tomorrow as previously decided. Hold TF after midnight. Plan: - EGD with PEG tube placement on Monday - Hold TF and NPO after MN on Monday - Obtain consents - Continue Protonix - Continue Reglan as needed - Continue Zofran as needed - Monitor labs - Supportive care - Further recommendations to follow based on results of above Pt has been seen and examined by myself and Dr. Hanson and this note is written on her behalf (Jeannine Holloway) Jeannine Holloway Mar 19, 2017 16:31 Breann Hanson MD Mar 19, 2017 20:35
[2017-03-19] MEDS: LORazepam 2 MG/ML VIAL IV PUSH PRN (23:04)
[2017-03-20] VITALS (9 sets, daily range): BP systolic 100–147; BP diastolic 55–65; PULSE 67–107; RESP 17–25; TEMP 97.5–98.6; O2SAT 96–100
[2017-03-20] MEDS: levETIRAcetam INJ 500 MG in SODIUM CHLORIDE 0.9% INJ 100 ML IV SCH ×4 (03:39→22:21)
[2017-03-20] MEDS: PROPRANOLOL HCL 20 MG TAB PO SCH ×4 (05:01→22:21)
[2017-03-20] MEDS: FREE WATER G-TUBE SCH ×4 (05:02→16:18)
[2017-03-20] MEDS: METHIMAZOLE 5 MG TAB PO SCH ×3 (05:02→22:21)
[2017-03-20 05:55] LABS: INTERNATIONAL NORMALIZED RATIO 1.1 RATIO; PROTHROMBIN TIME - PATIENT 10.7 SEC (9.8-11.6)
[2017-03-20 06:03] LABS: BICARBONATE 27.8 MEQ/L (21.0-32.0); CALCIUM 9.1 MG/DL (8.5-10.1); CREATININE 0.18 MG/DL (0.50-1.00)
[2017-03-20] MEDS: DOCUSATE SODIUM 50 MG/SENNA 8.6 MG TAB PO SCH ×2 (09:00→22:21)
[2017-03-20] MEDS: PANTOPRAZOLE SOD 40 MG DELAYED RELEASE TAB PO SCH (09:00)
[2017-03-20] MEDS: amLODIPine BESYLATE 5 MG TAB PO SCH (09:00)
[2017-03-20] MEDS: SODIUM CHLORIDE 0.9% FLUSH 10 ML FLUSH IV FLUSH SCH ×2 (09:11→22:22)
--- NOTE | 2017-03-20 11:36 | HHI.HCPN ---
Reason for visit a. To assist with evaluation and management of symptoms including: Debility. b. To assist medical decision maker(s) with: better understanding of current medical conditions; weighing benefits/burdens of medical treatment options; making medical treatment decisions. . Subjective/Interval History Palliative care reconsulted today to assist w clarification of goals of treatment. Patient seen in her room, resting in bed in no acute distress. Alert to self and situation, intermittently confused. Patient endorsing abdominal pain, unable to elaborate on complaint. Patient remains lethargic, weak, intermittently following simple commands. Tube feeding via NG discontinued yesterday. Speech therapy 03/17/16, patient found to severe oropharyngeal dysphagia. Nothing by mouth recommended. GI consulted 03/17/16 for evaluation of dysphagia, PEG tube placement. Patient afebrile, stable hemodynamically. Most recent laboratory data 03/20/17 revealing sodium 140, potassium 3.6, BUN/creatinine 12/0.18. Albumin 1.5. Bedside conversation with patient's sarah Matthew, akbhgoth-fh-efy Krystin Matthew (not [facility]), wmpeig-ch-qij Megan Gutierrez and pt's daughter Elle who has special needs/Down syndrome. Telephone conversation with patient's niece/ healthcare surrogate Krystin Matthew. Medical update provided. Reviewed guarded prognosis for a prolong survival given profound debility, failure to thrive, progressive decline within the past few months, multiple comorbidities. Reviewed PEG tube for long-term feeding given severe oropharyngeal dysphagia. Reviewed risks, benefits and limitation of PEG tube given the above. Family electing to proceed with PEG tube placement, goal to discharge to [facility] for rehabilitation. Reviewed that patient is at a very high risk for further complications, continue decline and . [facility] Krystin Matthew reiterated DNR/DNI status. Reviewed that committed DNR has to be signed, left in chart for healthcare surrogate complete. . Family/friend interactions See interval note. . Advance Directives Living Will: Never completed Health Care Surrogate: Copy in medical record Advance Directive Specifics Date completed: 03/10/2017. Health Care Surrogate(s): Patient has designated her niece Krystin aMtthew as primary healthcare surrogate, alternate surrogate is sarah Matthew. . Significant change in goals: Family electing to proceed with aggressive management short of no code. . Objective Vital Signs Date Time Temp Pulse Resp B/P (MAP) Pulse Ox O2 Delivery O2 Flow Rate FiO2 03/20/17 08:10 97 21 03/20/17 08:00 97.5 80 21 137/62 (87) 96 03/20/17 04:00 98.5 68 17 100/55 (70) 100 03/20/17 04:00 74 03/20/17 00:17 98.3 94 21 100 03/20/17 00:00 75 03/19/17 20:00 98.7 60 15 121/57 (78) 100 03/19/17 20:00 66 03/19/17 19:00 100 Room Air 03/19/17 16:00 97.6 64 18 121/60 (80) 100 03/19/17 16:00 66 03/19/17 12:00 55 03/19/17 12:00 97.9 75 21 132/57 (82) 100 Intake & Output 03/20/17 03/20/17 07:00 19:00 Intake Total 210 ml Balance 210 ml Intake Oral 0 ml IV Total 210 ml # Voids 4 Physical Exam CONSTITUTIONAL/GENERAL: This is an elderly, cachectic female resting in bed in no acute distress. Lethargic. TUBES/LINES/DRAINS: PIV's upper extremities, SCDs EYES: Pupils equal and round and reactive. Extraocular motions intact. No scleral icterus. No injection or drainage. ENT: Hearing appears normal. Nose without bleeding or purulent drainage. Moist oral mucosa CARDIOVASCULAR: regular rate and rhythm without murmur. No JVD. Peripheral pulses symmetric. RESPIRATORY/CHEST: Symmetric, unlabored respirations. On room air. Clear to auscultation. Breath sounds equal bilaterally. GASTROINTESTINAL: Abdomen soft, flat, non-tender, nondistended. No guarding. Bowel sounds normoactive. GENITOURINARY: Without palpable bladder distension. MUSCULOSKELETAL: Extremities without clubbing, cyanosis, or edema. Muscular atrophy to all 4 extremities. NEUROLOGICAL: Awake and alert to self and situation, intermittently confused. She follows very simple commands. She moves all 4 extremities with generalized weakness. PSYCHIATRIC: no apparent anxiety or distress . Diagnostic Tests Laboratory Laboratory Tests Test 03/18/17 03:55 03/20/17 04:21 Prothrombin Time 11.0 SEC (9.8-11.6) 10.7 SEC (9.8-11.6) Prothromb Time International Ratio 1.1 RATIO 1.1 RATIO Prealbumin 9 MG/DL (20-40) Blood Urea Nitrogen 12 MG/DL (7-18) Creatinine 0.18 MG/DL (0.50-1.00) Random Glucose 105 MG/DL (74-106) Calcium Level 9.1 MG/DL (8.5-10.1) Sodium Level 140 MEQ/L (136-145) Potassium Level 3.6 MEQ/L (3.5-5.1) Chloride Level 107 MEQ/L (98-107) Carbon Dioxide Level 27.8 MEQ/L (21.0-32.0) Anion Gap 5 MEQ/L (5-15) Estimat Glomerular Filtration Rate 385 ML/MIN (>89) Result Diagram: 03/20/17 0421 Assessment and Plan Disease Oriented Problem List: (1) Atrial fibrillation with RVR (2) Electrolyte abnormality (3) Nausea (4) Subdural hematoma (5) Cachexia (6) Physical deconditioning Symptom Scale: (1) Debility 0-10 Scale: Unable to quantify Comment: Progressive. (2) Abdominal pain 0-10 Scale: Unable to quantify Comment: Unclear etiology. Pertinent Non-Medical Issues Psychosocial: Patient originally from [facility]. Moved to [place] 15 years ago. Patient is , 5 years ago. Patient has an adult daughter , Elle who is 47 years old with Down syndrome. 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 Primary language is Thai. Spiritual: [employer]alian luisa. Legal: Advance directives completed. Ethical issues impacting care: No ethical issues identified. . Important Contacts Niece/HCS Krystin Matthew , . . Prognosis Mrs. Matthew is an 81 female with a medical history of Alzheimer's dementia, diabetes mellitus, hypertension and acute-subacute subdural hematoma. Patient presented [facility] for [facility] of near syncopal episode and nausea vomiting. Patient with multiple recent acute hospitalizations, this is patient's seventh acute hospitalization in the past 4 months. [facility] out [facility], reporting progressive physical deconditioning, weight loss. Patient is cachectic, frail. Patient at high risk for further complications, continue decline and . . Code Status: No Code Plan * CODE STATUS: No code. DNR/DNI. This has been confirmed with patient's niece/ HCS Krystin. Community DNR left at bedside for completion. Will follow-up. * HEALTHCARE DECISION-MAKING: Patient with baseline Alzheimer's dementia. Alert and oriented x self and situation, intermittent confusion. Worsening confusion noted today. Mostly coherent conversation conducted in her [place] language Thai. Pt has designated her niece Krystin Matthew as primary healthcare surrogate decision maker, alternate surrogate is step son Abdiel Matthew. Given patient's progressive confusion, palliative care recommends shared decision- making with HCS/niluis Matthew. * GOALS OF CARE: 03/20/16: Patient's leatha Matthew acting as healthcare surrogate decision maker, assisted by additional family members has elected to proceed with PEG tube placement. Family electing to maximize medical management short of no code with the goal of discharging patient to [facility] for rehabilitation. Reviewed at length patient's progressive decline to include failure to thrive, malnutrition, dysphagia, profound physical deconditioning, multiple comorbidities. Reviewed likely trajectory of illness to include further decline, recurrent complications/hospitalizations and . Reviewed continuation of aggressive management short of no code versus comfort directed care with hospice. Family verbalized wishing to give patient "a chance". * SYMPTOMS: =Debility: Progressive. Patient with multiple acute hospitalizations in the past 4 months. [facility]. Patient is cachectic, profound physical deconditioning with history of multiple falls. Likely to continue to worsen. Patient and family requesting [facility] for physical [facility]ening. * = Abdominal pain: Unclear etiology. Patient with similar complaints on prior hospitalizations. GI has been previously consulted in February, -No acute findings. Passing flatus, KUB negative for obstruction. No apparent pathology. Would avoid use of opiates as this may further alter patient's mental status, would further slow GI motility. * = dysphagia: Pending PEG tube placement. * Palliative care will continue to follow-up for further clarifications of goals of care as patient's clinical course continues to evolve. . Time Spent Total Floor Time (mins): 39 (Total time to include review medical records, physical exam, goals of care conversation with patient's healthcare surrogate Sydney and additional family members.) >50% Counseling/Coord of Care: Yes Attestation To help prompt me to consider important information that might be impacting today's encounter and assessment, information from prior notes written by myself or my colleagues may have been "brought forward" into today's note. My signature on this note, however, is an attestation that I personally performed the exam, history, and/or decision-making noted today, and, unless otherwise indicated, the interactions with patient, family, and staff as well as the review of records all occurred today. I also attest that the listed assessment and stated plan reflect my best clinical judgment today based on the combination of historical information, prior notes, and today's exam/ interactions. When time spent is documented, it refers only to time spent today by the signer, or if indicated, combined time spent today by collaborating physician/nurse practitioner. Amirah Martinez Mar 20, 2017 11:36
[2017-03-20] MEDS ORDERED: LIDOCAINE HCL 1% PF 5 ML SYRINGE OTHER ONE (12:00)
[2017-03-20] MEDS ORDERED: GLYCOPYRROLATE 1 MG/5 ML SYRINGE IV PUSH ONE (12:00)
[2017-03-20] MEDS ORDERED: PROPOFOL 200 MG/20 ML AMP IV ONE (12:00)
[2017-03-20] MEDS ORDERED: PHENYLEPH/NS 1000 MCG/10 ML SYR IV ONE (12:00)
[2017-03-20] MEDS ORDERED: ceFAZolin INJ 1,000 MG VIAL IV ONE (12:04)
--- NOTE | 2017-03-20 12:33 | PD.PROCEDR ---
GI Procedure PROCEDURE PERFORMED EGD with PEG placement INDICATION FOR PROCEDURE Poor oral intake, malnutrition PROCEDURE: The procedure, risks and benefits were discussed with Ms. Matthew and informed consent was obtained. Anesthesia sedated her with Diprivan. She was placed in the left lateral decubitus position. EGD: The Pentax videoscope was introduced through the oropharynx and advanced to the second portion of the duodenum under direct visualization. Retroflexion was performed in the stomach. FINDINGS: The esophagus this was normal The stomach this was normal The duodenum there were 2 medium-size duodenal bulb ulcers clean base no visible vessel low risk for bleeding the rest of the duodenum was unremarkable Following the evaluation of the stomach and the duodenum the stomach was insufflated with air and the area of PEG placement was identified through indentation and transillumination the area was prepped and draped in usual fashion 5 cc of lidocaine were injected locally a small incision was made then an Angiocath was passed into the stomach through which a guidewire was passed this was retrieved with the scope into that a PEG tube was attached and pulled into place and thereafter secured in usual fashion The patient tolerated procedure well and there are no immediate complications ESTIMATED BLOOD LOSS: None SPECIMENS REMOVED: None COMPLICATIONS: None IMPRESSION: Duodenal ulcers Successful PEG placement PLAN: PLAN: 1. May use PEG tube for medications today 2. May start feeding tomorrow 3. May obtain nutritional consult for tube feeding 4. Flush tube with 50 cc of water every 4-6 hours 5. Always flush tube after feedings 6. Apply abdominal binder as necessary 7. Clamp G-tube after use and flush. Continue PPI Maxx Andres MD Mar 20, 2017 12:33
[2017-03-20] MEDS ORDERED: DO NOT ADM ANY ANTICOAGULANT DRUGS PRN (12:40)
[2017-03-20] MEDS ORDERED: *morphine SULFATE 4 MG/ML PERIprocedure ONLY ONE (12:48)
[2017-03-20] MEDS ORDERED: *ONDANSETRON 4 MG VIAL PERIprocedural Use ONLY ONE (12:48)
[2017-03-21] VITALS (8 sets, daily range): BP systolic 120–143; BP diastolic 55–92; PULSE 64–82; RESP 15–22; TEMP 98.1–99.2; O2SAT 98–100
[2017-03-21] MEDS: levETIRAcetam INJ 500 MG in SODIUM CHLORIDE 0.9% INJ 100 ML IV SCH ×2 (04:32→09:35)
[2017-03-21] MEDS: FREE WATER G-TUBE SCH ×2 (06:00)
[2017-03-21] MEDS: METHIMAZOLE 5 MG TAB PO SCH ×3 (06:11→21:26)
[2017-03-21] MEDS: PROPRANOLOL HCL 20 MG TAB PO SCH ×3 (06:11→21:26)
[2017-03-21] MEDS: DOCUSATE SODIUM 50 MG/SENNA 8.6 MG TAB PO SCH (09:34)
[2017-03-21] MEDS: SODIUM CHLORIDE 0.9% FLUSH 10 ML FLUSH IV FLUSH SCH ×2 (09:34→21:27)
[2017-03-21] MEDS: PANTOPRAZOLE SOD 40 MG DELAYED RELEASE TAB PO SCH (09:34)
[2017-03-21] MEDS: amLODIPine BESYLATE 5 MG TAB PO SCH (09:34)
--- NOTE | 2017-03-21 10:53 | HHI.CCPN ---
Subjective Remarks/Hospital Course 03/12: This is an 81-year-old speaking female. Date of admission 2017. Date of consultation 03/12/2017. Past medical history includes hypothyroidism, hypertension, diabetes and gastroesophageal reflux disease. Patient was admitted February/2017. For evaluation of subdural hematoma. Was evaluated by neurosurgery recommended nonoperative/conservative management. Also has history of a chronic right subdural hygroma and normal pressure hydrocephalus. This hospitalization, admitted for syncopal episode. Workup included neurology consultation. CT brain revealed stable left subdural hematoma 11 mm located no frontal parietal temporal region. This morning, patient acute onset of altered mental status. Transfer to ICU. MRI brain reveals stable left frontal parietal temporal subdural hematoma. EEG has been ordered. Started on levetiracetam 500 mg IV every 6 hours by neurology bleed this is a seizure. Patient is [place]-speaking but following commands appropriately in [place] language. Focal deficits include right upper extremity weakness/pronator drift otherwise unremarkable. Denies chest pain, shortness of breath or abdominal pain. 03/13: Resting in bed. Tolerating tube feeds. Has baseline dementia. Not following commands. 03/14: Awake and alert. Resting in bed. Tolerating tube feeds. Does not follow commands. Has baseline dementia. Stopping quarter normal saline. 03/15: Awake and alert. Tolerating tube feeds. Complains of pain. Has baseline dementia. 03/16: No change in neuro status. 03/17: She protects her airway well but will need a feeding tube if we are to continue retirement care in a SNF. Will ask GI to see. 03/18: PEG is planned for monday. 03/19: Will require placement after PEG. Anticipate ongoing clinical deterioration. Subjective 03/21: Afebrile. Status post PEG tube placement yesterday. We'll initiate tube feeding today. Resting in bed in no acute distress. Objective Vital Signs Date Time Temp Pulse Resp B/P (MAP) Pulse Ox O2 Delivery O2 Flow Rate FiO2 03/21/17 10:18 99 21 03/21/17 04:00 71 03/21/17 04:00 98.7 16 143/63 (89) 03/20/17 19:00 Room Air 03/20/17 13:15 2 Intake and Output 03/21/17 03/21/17 03/22/17 08:00 16:00 00:00 Intake Total 60 ml Balance 60 ml Result Diagram: 03/20/17 0421 Other Results Microbiology Date/Time Source Procedure Growth Status 03/09/17 15:25 Blood Peripheral Aerobic Blood Culture - Final NO GROWTH IN 5 DAYS Complete 03/09/17 15:25 Blood Peripheral Anaerobic Blood Culture - Final NO GROWTH IN 5 DAYS Complete Imaging Last Impressions Thyroid Ultrasound 03/12/17 0000 Signed Impressions: Service Date/Time: Sunday, March 12, 2017 17:54 - CONCLUSION: 1. 9 mm nodule in the mid right thyroid gland along the posterior margin. It is uncertain whether this represents a thyroid or parathyroid nodule. 2. Mild heterogeneous appearance of the thyroid gland 3. No other discrete masses. Killian Lo MD Neck CTA 03/12/17 0000 Signed Impressions: Service Date/Time: Sunday, March 12, 2017 08:22 - CONCLUSION: No acute disease. Abdiel Lerma MD Head CTA 03/12/17 0000 Signed Impressions: Service Date/Time: Sunday, March 12, 2017 08:22 - CONCLUSION: No focal stenosis, occlusion or aneurysm formation. Abdiel Lerma MD Head CT 03/12/17 0000 Signed Impressions: Service Date/Time: Sunday, March 12, 2017 07:43 - CONCLUSION: 1. Stable subdural collection along the left frontoparietal lobe which is both subacute and acute components and measures 11 mm in greatest width. 2. Diffuse cerebral atrophy. 3. No acute infarct is noted. Abdiel Lerma MD Chest X-Ray 03/12/17 0000 Signed Impressions: Service Date/Time: Sunday, March 12, 2017 07:04 - CONCLUSION: 1. Stable cardiomegaly. 2. No acute focal pulmonary infiltrate or pulmonary vascular congestion. Abdiel Lerma MD Brain MRI 03/12/17 0000 Signed Impressions: Service Date/Time: Sunday, March 12, 2017 09:46 - CONCLUSION: 1. No acute infarct, acute intracranial hemorrhage or enhancing mass lesion. 2. Stable subacute left frontal parietal and temporal subdural hematoma. 3. Cerebral atrophy. 4. Mild periventricular and subcortical white matter small vessel ischemic changes bilaterally. Abdiel Lerma MD Abdomen X-Ray 03/12/17 0000 Signed Impressions: Service Date/Time: Sunday, March 12, 2017 11:33 - CONCLUSION: No evidence of obstruction. Dobbhoff feeding tube in the fundus of the stomach Franki Winkler MD Carotid Artery Ultrasound 03/11/17 0000 Signed Impressions: Service Date/Time: Saturday, March 11, 2017 19:37 - CONCLUSION: 1. Mild bilateral carotid plaque 2. No evidence of hemodynamically significant stenosis. 3. Antegrade flow both vertebral arteries. Killian Lo MD Objective Remarks GENERAL: 81-year-old female, resting in bed, no acute distress SKIN: Warm and dry. HEAD: Atraumatic. Normocephalic. EYES: Pupils equal and round 2 mm bilaterally and reactive. No scleral icterus. No injection or drainage. ENT: No nasal bleeding or discharge. Mucous membranes pink and moist. NECK: Trachea midline. Airway widely patent. CARDIOVASCULAR: RRR. S1, S2. Without murmur, no JVD. RESPIRATORY: No accessory muscle use. Clear to auscultation. Breath sounds equal bilaterally. GASTROINTESTINAL: Abdomen soft, non-tender, nondistended. No guarding. BS active. PEG tube site is clean dry and intact MUSCULOSKELETAL: Extremities without clubbing, cyanosis, or edema. No obvious deformities. Well perfused. NEUROLOGICAL: Awake and alert, slow to respond but does verbalize. No obvious cranial nerve deficits. Tracks with eyes, attempts to talk. Positive right upper extremity weakness. 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 CT brain revealed stable left frontal parietal temporal subdural hematoma with possible acute and subacute components CTA brain and neck showed no signs of occlusive disease EEG done. Started on levetiracetam 500 mg IV every [address] Strickland Switched to levetiracetam 1000 mg per PEG every 12 hours Neurosurgery evaluation - conservative therapy no intervention at this time Acetaminophen 650 mg by mouth every 6 hours. As needed Fever/pain 1-2 Patient is on hydrocodone/acetaminophen 7.5/325 7.5 cc to 6 hours when necessary pain 3-5, 15 cc every 6 hours when necessary pain 6-10 PT/OT/ST evaluate and treat CV: Sinus tachycardia History of SVT Elevated troponin Patient is currently on propranolol 20 mg every 8 hours Previously on metoprolol 25 mg twice a day Continue amlodipine 5 mg daily Echocardiogram revealed EF 65-70%. Mild TR/OR. Pulmonary arterial pressures 55 -60 mmHg Resp: Nasal cannula to maintain saturations greater than equal to 92%. Currently on room air Incentive spirometry while awake GI: Hypoalbuminemia Gastroesophageal reflux disease History of gastric ulcer Tube feeding vital 1.5 goal 40 cc an hour per dietary's recommendations with free water 100 cc every 8 hours Currently on pantoprazole 40 mg by mouth daily/home medication Switch to lansoprazole 30 mg by PEG daily Docusate sodium liquid 100 milligrams twice a day/senna 8.8 mg liquid twice a day for bowel regimen PEG insertion 03/20 : No indication for Yip catheter Endo: Hyperthyroidism Continue methimazole but increased to 5-10 mg 3 times a day Thyroid ultrasound revealed a 9 mm right mid thyroid nodule. TSI was elevated 440. Likely Graves' disease Recheck TSH in one week Low TPO antibodies/thyroglobulin elevated and indicative of Graves/Celena's disease TSH 0.005 on admission. Elevated free T4 Sliding-scale insulin Novolog with Accu-Cheks every 6 hours to maintain euglycemia/low regimen Renal: Monitor urine output Accurate I's and Os Recheck BMP in a.m. Heme: Normocytic anemia Monitor CBC daily. Follow trends ID: Monitor for infection FEN: Tolerating tube feedings with vital 1.5 goal 40 cc an hour with free water flushes 100 cc every 8 hours MSK: PT/OT evaluate and treat Access - Utilize peripheral IV. Central line if indicated Prophylaxis - GI -lansoprazole - DVT - SCD/holding pharmacological prophylaxis until okayed with neurosurgery Discussed with Dr. Taveras from neurosurgery on 03/13. Okay to transfer out of ICU , no neurosurgical intervention planned. Palliative care following to assist with deciding goals of therapy. Transfer to hospitalist service for further medical management. Sravan Farmer MD Mar 21, 2017 10:53
[2017-03-21] MEDS ORDERED: RESP: ALBUTEROL 2.5 MG/3 ML NEB (PRN) NEB (11:00)
[2017-03-21] MEDS ORDERED: ACETAMINOPHEN 650 MG/20.3 ML UDC PO PRN (11:00)
[2017-03-21] MEDS ORDERED: ACETAMINOPHEN 325MG/HYDROcodone 7.5MG/15ML UDC PEG PRN (11:15)
[2017-03-21] MEDS ORDERED: ACETAMINOPHEN 325MG/HYDROcodone 7.5MG/15ML UDC PO PRN (11:15)
--- NOTE | 2017-03-21 11:22 | HHI.GIFU ---
Subjective Remarks Pt resting in bed in NAD. SHe says she feels a little better today. Admits mild abd pain around PEG tube site. (Komal Reinoso) Objective Vitals I&O Vital Signs Date Time Temp Pulse Resp B/P (MAP) Pulse Ox O2 Delivery O2 Flow Rate FiO2 03/21/17 10:18 99 21 03/21/17 04:00 71 03/21/17 04:00 98.7 71 16 143/63 (89) 100 03/21/17 00:43 98 21 03/21/17 00:00 76 03/21/17 00:00 98.7 76 22 137/64 (88) 98 03/20/17 20:00 77 03/20/17 20:00 98.6 77 19 120/55 (76) 100 03/20/17 19:00 94 Room Air 03/20/17 16:00 99 03/20/17 14:42 97.6 107 24 143/60 (87) 100 03/20/17 14:00 97.7 88 14 133/63 (86) 100 Room Air 03/20/17 13:45 80 15 133/59 (83) 100 Room Air 03/20/17 13:30 85 16 119/59 (79) 99 Room Air 03/20/17 13:15 92 17 124/60 (81) 99 Nasal Cannula 2 03/20/17 13:00 100 18 112/53 (72) 99 Nasal Cannula 2 03/20/17 12:41 97.7 110 20 103/54 (70) 100 Simple Mask 6 I/O 03/20/17 03/20/17 03/20/17 03/21/17 03/21/17 03/21/17 07:00 15:00 23:00 07:00 15:00 23:00 Intake Total 105 ml 400 ml 60 ml Balance 105 ml 400 ml 60 ml Intake Oral 0 ml IV Total 105 ml 0 ml Other 400 ml 60 ml # Voids 4 6 3 # Bowel Movements 0 Laboratory Date/Time Source Procedure Growth Status 03/09/17 15:25 Blood Peripheral Aerobic Blood Culture - Final NO GROWTH IN 5 DAYS Complete 03/09/17 15:25 Blood Peripheral Anaerobic Blood Culture - Final NO GROWTH IN 5 DAYS Complete Imaging Last Impressions Thyroid Ultrasound 03/12/17 0000 Signed Impressions: Service Date/Time: Sunday, March 12, 2017 17:54 - CONCLUSION: 1. 9 mm nodule in the mid right thyroid gland along the posterior margin. It is uncertain whether this represents a thyroid or parathyroid nodule. 2. Mild heterogeneous appearance of the thyroid gland 3. No other discrete masses. Killian Lo MD Neck CTA 03/12/17 0000 Signed Impressions: Service Date/Time: Sunday, March 12, 2017 08:22 - CONCLUSION: No acute disease. Abdiel Lerma MD Head CTA 03/12/17 0000 Signed Impressions: Service Date/Time: Sunday, March 12, 2017 08:22 - CONCLUSION: No focal stenosis, occlusion or aneurysm formation. Abdiel Lerma MD Head CT 03/12/17 0000 Signed Impressions: Service Date/Time: Sunday, March 12, 2017 07:43 - CONCLUSION: 1. Stable subdural collection along the left frontoparietal lobe which is both subacute and acute components and measures 11 mm in greatest width. 2. Diffuse cerebral atrophy. 3. No acute infarct is noted. Abdiel Lerma MD Chest X-Ray 03/12/17 0000 Signed Impressions: Service Date/Time: Sunday, March 12, 2017 07:04 - CONCLUSION: 1. Stable cardiomegaly. 2. No acute focal pulmonary infiltrate or pulmonary vascular congestion. Abdiel Lerma MD Brain MRI 03/12/17 0000 Signed Impressions: Service Date/Time: Sunday, March 12, 2017 09:46 - CONCLUSION: 1. No acute infarct, acute intracranial hemorrhage or enhancing mass lesion. 2. Stable subacute left frontal parietal and temporal subdural hematoma. 3. Cerebral atrophy. 4. Mild periventricular and subcortical white matter small vessel ischemic changes bilaterally. Abdiel Lerma MD Abdomen X-Ray 03/12/17 0000 Signed Impressions: Service Date/Time: Sunday, March 12, 2017 11:33 - CONCLUSION: No evidence of obstruction. Dobbhoff feeding tube in the fundus of the stomach Franki Winkler MD Carotid Artery Ultrasound 03/11/17 0000 Signed Impressions: Service Date/Time: Saturday, March 11, 2017 19:37 - CONCLUSION: 1. Mild bilateral carotid plaque 2. No evidence of hemodynamically significant stenosis. 3. Antegrade flow both vertebral arteries. Killian Lo MD Physical Exam HEENT: Normocephalic, atraumatic CHEST: Even/unlabored CARDIAC: RRR ABDOMEN: Soft, nondistended, bowel sounds active.PEG tube stie dressing D&I EXTREMITIES: No clubbing, cyanosis, or edema. SKIN: Normal; no rash; no jaundice. 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 Presented to ER after witnessed syncopal episode, was found to have acute and subacute changes to subdural hematoma as well as a-fib RVR. Pt was also noted to have nausea and vomiting. Per speech therapy notes pt has severe oropharyngeal dysphagia and nutrition assessment notes pt to be at high nutritional risk due to inadequate PO intake. s/p EGD with PEG tube placement 03/20/17 EGD showed duodenal ulcers. will restart TF. Plan: - restart TF today - Continue PPI - Continue Reglan PRN - Continue Zofran PRN - Monitor labs - Supportive care - GI will sign off, please reconsult if needed Pt has been seen and examined by myself and Dr. Andres and this note is written on his behalf (Komal Reinoso) Physician Comments Patient seen and examined Agree with above Continue with current supportive care Monitor labs Follow-up with GI post discharge Not much to add at this point we will sign off (Maxx Andres MD) Komal Reinoso Mar 21, 2017 11:22 Maxx Andres MD Mar 21, 2017 22:35
[2017-03-21] MEDS: DOCUSATE SODIUM 100 MG/10 ML UDC PO SCH (21:26)
[2017-03-21] MEDS: SENNOSIDES SYRUP 8.8 MG/5 ML CUP PO SCH (21:27)
[2017-03-21] MEDS: levETIRAcetam 500 MG/5 ML UDC NG SCH (21:27)
[2017-03-22] VITALS: BP 128/61; PULSE 68; RESP 20; TEMP 98.7; O2SAT 98
[2017-03-22 04:00] VITALS: BP 121/74; PULSE 72; RESP 20; TEMP 98.8; O2SAT 99
[2017-03-22] MEDS: PROPRANOLOL HCL 20 MG TAB PO SCH ×2 (05:25→13:03)
[2017-03-22 06:06] LABS: AUTOMATED NEUTROPHIL # 5.1 TH/MM3 (1.8-7.7); BASOPHIL % 0.2 % (0.0-2.0); EOSINOPHIL # 0.1 TH/MM3 (0-0.4); EOSINOPHIL % 1.9 % (0.0-4.0); HEMATOCRIT 23.8 % (35.0-46.0); HEMOGLOBIN 8.1 GM/DL (11.6-15.3); LYMPH % 18.2 % (9.0-44.0); LYMPHOCYTE # 1.3 TH/MM3 (1.0-4.8); MEAN CELL VOLUME 94.3 FL (80.0-100.0); MEAN CORPUSCULAR HEMOGLOBIN 32.2 PG (27.0-34.0); MEAN CORPUSCULAR HGB CONC 34.1 % (32.0-36.0); MEAN PLATELET VOLUME 8.9 FL (7.0-11.0); MONO % 10.4 % (0.0-8.0); MONOCYTE # 0.8 TH/MM3 (0-0.9); NEUT % 69.3 % (16.0-70.0); PLATELET COUNT 303 TH/MM3 (150-450); RED BLOOD COUNT 2.53 MIL/MM3 (4.00-5.30); RED CELL DISTRIBUTION WIDTH 15.5 % (11.6-17.2); WHITE BLOOD COUNT 7.4 TH/MM3 (4.0-11.0)
[2017-03-22] MEDS: METHIMAZOLE 5 MG TAB PO SCH ×2 (06:06→13:03)
[2017-03-22 06:27] LABS: ALT (GPT) 13 U/L (10-53); PHOSPHORUS 2.4 MG/DL (2.5-4.9)
[2017-03-22 06:29] LABS: ALKALINE PHOSPHATASE 65 U/L (45-117); TOTAL BILIRUBIN ADULT 0.2 MG/DL (0.2-1.0); TOTAL PROTEIN 6.8 GM/DL (6.4-8.2)
[2017-03-22 06:36] LABS: ALBUMIN 1.7 GM/DL (3.4-5.0); AST (GOT) 20 U/L (15-37); BICARBONATE 28.9 MEQ/L (21.0-32.0); BLOOD UREA NITROGEN 11 MG/DL (7-18); CALCIUM 8.7 MG/DL (8.5-10.1); CHLORIDE 106 MEQ/L (98-107); CREATININE 0.43 MG/DL (0.50-1.00); GLOMERULAR FILTRATION RATE 141 ML/MIN (>89); GLUCOSE,RANDOM 198 MG/DL (74-106); MAGNESIUM 1.6 MG/DL (1.5-2.5); SODIUM (NA) 141 MEQ/L (136-145)
[2017-03-22 08:00] VITALS: BP 157/69; PULSE 79; RESP 16; TEMP 99.6; O2SAT 99
[2017-03-22] MEDS: SODIUM CHLORIDE 0.9% FLUSH 10 ML FLUSH IV FLUSH SCH (09:00)
[2017-03-22] MEDS ORDERED: LANSOPRAZOLE SOLUTAB 30 MG TAB NG SCH (09:00)
[2017-03-22] MEDS: amLODIPine BESYLATE 5 MG TAB PO SCH (10:01)
[2017-03-22] MEDS: levETIRAcetam 500 MG/5 ML UDC NG SCH (10:02)
[2017-03-22] MEDS: SENNOSIDES SYRUP 8.8 MG/5 ML CUP PO SCH (10:04)
[2017-03-22] MEDS: DOCUSATE SODIUM 100 MG/10 ML UDC PO SCH (10:04)
[2017-03-22 10:35] VITALS: PULSE 73
[2017-03-22 12:00] VITALS: BP 131/59; PULSE 67; RESP 16; TEMP 99.2; O2SAT 99
[2017-03-22] MEDS ORDERED: METH5 PO (14:30)
[2017-03-22] MEDS ORDERED: PROP20TA3 PEG (14:30)
--- NOTE | 2017-03-22 14:34 | HHI.DS ---
Discharge Summary Admission Date Mar 09, 2017 at 17:00 Discharge Date: Mar 22, 2017 Admitting Diagnosis atrial fibrillation with RVR, acute on chronic subdural, dehydration (1) Atrial fibrillation with RVR ICD Code: I48.91 - Unspecified atrial fibrillation Diagnosis: Secondary Status: Acute (2) Subdural hematoma ICD Code: I62.00 - Nontraumatic subdural hemorrhage, unspecified Diagnosis: Principal Status: Acute (3) Hypernatremia ICD Code: E87.0 - Hyperosmolality and hypernatremia Diagnosis: Principal Status: Acute (4) Hypokalemia ICD Code: E87.6 - Hypokalemia Diagnosis: Secondary Status: Resolved Procedures None Brief History 81-year-old female with a past medical history significant for subdural hematoma , history of SVT, diabetes mellitus, H. pylori gastritis/peptic ulcer and hypertension presents to the emergency department for evaluation of a syncopal episode. The patient currently resides in a fdc where she was reported to have had a possible syncopal episode. She reportedly had nausea and vomiting earlier. On arrival to the emergency department, EKG showed that the patient was in atrial fibrillation with rapid ventricular response, pulse 144. Head CT showed a stable subdural hematoma that has both subacute and acute components without midline shift. Chest x-ray negative for acute disease. Laboratory values significant for Na 152, K 2.9, BUN/Cr 29/0.93. WBCs 16.8. She is afebrile on arrival to the ED. The patient's mental status is at baseline. She will answer questions but is not oriented to place or time. She states she has abdominal pain but cannot further characterize it or localize it. She denies chest pain/shortness of breath. CBC/BMP: 03/22/17 0538 03/22/17 0538 Significant Findings Laboratory Tests Test 03/20/17 04:21 03/22/17 05:38 Creatinine 0.18 MG/DL (0.50-1.00) 0.43 MG/DL (0.50-1.00) Red Blood Count 2.53 MIL/MM3 (4.00-5.30) Hemoglobin 8.1 GM/DL (11.6-15.3) Hematocrit 23.8 % (35.0-46.0) Monocytes (%) (Auto) 10.4 % (0.0-8.0) Random Glucose 198 MG/DL (74-106) Albumin 1.7 GM/DL (3.4-5.0) Phosphorus Level 2.4 MG/DL (2.5-4.9) Imaging Last Impressions Thyroid Ultrasound 03/12/17 0000 Signed Impressions: Service Date/Time: Sunday, March 12, 2017 17:54 - CONCLUSION: 1. 9 mm nodule in the mid right thyroid gland along the posterior margin. It is uncertain whether this represents a thyroid or parathyroid nodule. 2. Mild heterogeneous appearance of the thyroid gland 3. No other discrete masses. Killian Lo MD Neck CTA 03/12/17 0000 Signed Impressions: Service Date/Time: Sunday, March 12, 2017 08:22 - CONCLUSION: No acute disease. Abdiel Lerma MD Head CTA 03/12/17 0000 Signed Impressions: Service Date/Time: Sunday, March 12, 2017 08:22 - CONCLUSION: No focal stenosis, occlusion or aneurysm formation. Abdiel Lerma MD Head CT 03/12/17 0000 Signed Impressions: Service Date/Time: Sunday, March 12, 2017 07:43 - CONCLUSION: 1. Stable subdural collection along the left frontoparietal lobe which is both subacute and acute components and measures 11 mm in greatest width. 2. Diffuse cerebral atrophy. 3. No acute infarct is noted. Abdiel Lerma MD Chest X-Ray 03/12/17 0000 Signed Impressions: Service Date/Time: Sunday, March 12, 2017 07:04 - CONCLUSION: 1. Stable cardiomegaly. 2. No acute focal pulmonary infiltrate or pulmonary vascular congestion. Abdiel Lerma MD Brain MRI 03/12/17 0000 Signed Impressions: Service Date/Time: Sunday, March 12, 2017 09:46 - CONCLUSION: 1. No acute infarct, acute intracranial hemorrhage or enhancing mass lesion. 2. Stable subacute left frontal parietal and temporal subdural hematoma. 3. Cerebral atrophy. 4. Mild periventricular and subcortical white matter small vessel ischemic changes bilaterally. Abdiel Lerma MD Abdomen X-Ray 03/12/17 0000 Signed Impressions: Service Date/Time: Sunday, March 12, 2017 11:33 - CONCLUSION: No evidence of obstruction. Dobbhoff feeding tube in the fundus of the stomach Franki Winkler MD Carotid Artery Ultrasound 03/11/17 0000 Signed Impressions: Service Date/Time: Saturday, March 11, 2017 19:37 - CONCLUSION: 1. Mild bilateral carotid plaque 2. No evidence of hemodynamically significant stenosis. 3. Antegrade flow both vertebral arteries. Killian Lo MD PE at Discharge GENERAL: 81-year-old female, resting in bed, no acute distress SKIN: Warm and dry. HEAD: Atraumatic. Normocephalic. EYES: Pupils equal and round 2 mm bilaterally and reactive. No scleral icterus. No injection or drainage. ENT: No nasal bleeding or discharge. Mucous membranes pink and moist. NECK: Trachea midline. Airway widely patent. CARDIOVASCULAR: RRR. S1, S2. Without murmur, no JVD. RESPIRATORY: No accessory muscle use. Clear to auscultation. Breath sounds equal bilaterally. GASTROINTESTINAL: Abdomen soft, non-tender, nondistended. No guarding. BS active. PEG tube site is clean dry and intact MUSCULOSKELETAL: Extremities without clubbing, cyanosis, or edema. No obvious deformities. Well perfused. NEUROLOGICAL: Awake and alert, slow to respond but does verbalize. No obvious cranial nerve deficits. Tracks with eyes, attempts to talk. Positive right upper extremity weakness. Transfer Summary Neuro/Psych: Chronic left frontal parietal temporal subdural hematoma Likely seizure Chronic pain management MRI brain 03/22 revealed stable left frontal parietal temporal subdural hematoma 11 mm in diameter without shift. CT brain revealed stable left frontal parietal temporal subdural hematoma with possible acute and subacute components CTA brain and neck showed no signs of occlusive disease EEG done. Started on levetiracetam 500 mg IV every [address] Strickland Switched to levetiracetam 1000 mg per PEG every 12 hours Neurosurgery evaluation - conservative therapy no intervention at this time Acetaminophen 650 mg by mouth every 6 hours. As needed Fever/pain 1-2 Patient is on hydrocodone/acetaminophen 7.5/325 7.5 cc to 6 hours when necessary pain 3-5, 15 cc every 6 hours when necessary pain 6-10 PT/OT/ST evaluate and treat CV: Sinus tachycardia History of SVT Elevated troponin Patient is currently on propranolol 20 mg every 8 hours Previously on metoprolol 25 mg twice a day Continue amlodipine 5 mg daily Echocardiogram revealed EF 65-70%. Mild TR/AL. Pulmonary arterial pressures 55 -60 mmHg Resp: Nasal cannula to maintain saturations greater than equal to 92%. Currently on room air Incentive spirometry while awake GI: Hypoalbuminemia Gastroesophageal reflux disease History of gastric ulcer Tube feeding vital 1.5 goal 40 cc an hour per dietary's recommendations with free water 100 cc every 8 hours Currently on pantoprazole 40 mg by mouth daily/home medication Switch to lansoprazole 30 mg by PEG daily Docusate sodium liquid 100 milligrams twice a day/senna 8.8 mg liquid twice a day for bowel regimen PEG insertion 03/20 : No indication for Yip catheter Endo: Hyperthyroidism Continue methimazole but increased to 5-10 mg 3 times a day Thyroid ultrasound revealed a 9 mm right mid thyroid nodule. TSI was elevated 440. Likely Graves' disease Recheck TSH in one week Low TPO antibodies/thyroglobulin elevated and indicative of Graves/Celena's disease TSH 0.005 on admission. Elevated free T4 Sliding-scale insulin Novolog with Accu-Cheks every 6 hours to maintain euglycemia/low regimen Renal: Monitor urine output Accurate I's and Os Recheck BMP in a.m. Heme: Normocytic anemia Monitor CBC daily. Follow trends ID: Monitor for infection FEN: Tolerating tube feedings with vital 1.5 goal 40 cc an hour with free water flushes 100 cc every 8 hours MSK: PT/OT evaluate and treat Access - Utilize peripheral IV. Central line if indicated Prophylaxis - GI -lansoprazole - DVT - SCD/holding pharmacological prophylaxis until okayed with neurosurgery Discussed with Dr. Taveras from neurosurgery on 03/13. Okay to transfer out of ICU , no neurosurgical intervention planned. Palliative care following to assist with deciding goals of therapy. Transfer to hospitalist service for further medical management. Hospital Course 03/12: This is an 81-year-old speaking female. Date of admission 2017. Date of consultation 03/12/2017. Past medical history includes hypothyroidism, hypertension, diabetes and gastroesophageal reflux disease. Patient was admitted February/2017. For evaluation of subdural hematoma. Was evaluated by neurosurgery recommended nonoperative/conservative management. Also has history of a chronic right subdural hygroma and normal pressure hydrocephalus. This hospitalization, admitted for syncopal episode. Workup included neurology consultation. CT brain revealed stable left subdural hematoma 11 mm located no frontal parietal temporal region. This morning, patient acute onset of altered mental status. Transfer to ICU. MRI brain reveals stable left frontal parietal temporal subdural hematoma. EEG has been ordered. Started on levetiracetam 500 mg IV every 6 hours by neurology bleed this is a seizure. Patient is [place]-speaking but following commands appropriately in [place] language. Focal deficits include right upper extremity weakness/pronator drift otherwise unremarkable. Denies chest pain, shortness of breath or abdominal pain. 03/13: Resting in bed. Tolerating tube feeds. Has baseline dementia. Not following commands. 03/14: Awake and alert. Resting in bed. Tolerating tube feeds. Does not follow commands. Has baseline dementia. Stopping quarter normal saline. 03/15: Awake and alert. Tolerating tube feeds. Complains of pain. Has baseline dementia. 03/16: No change in neuro status. 03/17: She protects her airway well but will need a feeding tube if we are to continue assisted care in a SNF. Will ask GI to see. 03/18: PEG is planned for monday. 03/19: Will require placement after PEG. Anticipate ongoing clinical deterioration. 03/21: Afebrile. Status post PEG tube placement yesterday. We'll initiate tube feeding today. Resting in bed in no acute distress. 03/22: Afebrile. Tolerating tube feeding at goal. Okay to transfer to [facility] Condition on Discharge: Stable Discharge Disposition: Discharge to SNF Discharge Instructions DIET: Follow Instructions for: On Tube Feeding Speech Therapy-Diet Recommends: Pureed, Pudding Thickened Liquids Additional Diet Instructions: Vital 1.5 with goal 40 cc an hour with free water flushes 100 cc every 8 hours Activities you can perform: Weight Bearing as Sravan Thompson MD Mar 22, 2017 14:34
--- NOTE | 2017-03-22 14:42 | HHI.HCPN ---
Reason for visit a. To assist with evaluation and management of symptoms including: Debility. b. To assist medical decision maker(s) with: better understanding of current medical conditions; weighing benefits/burdens of medical treatment options; making medical treatment decisions. . Subjective/Interval History Palliative care reconsulted today to assist w clarification of goals of treatment. Patient seen in her room, resting in bed in no acute distress. Alert to self, place and situation, intermittently confused. Patient status post EGD with PEG tube placement on 03/20/17. Duodenal ulcers noted on endoscopy. Patient was started on enteral feedings, currently on Vital 1.5 mauri at goal rate of 40 mL an hour, appears to be tolerating well. Patient endorsing mild abdominal pain around PEG tube insertion site. Patient remains lethargic, weak, intermittently confused/forgetful. Laboratory workup today revealing WBC 7.4, Hgb 8.1, platelet count 303. Sodium 141, potassium 3.7, BUN/creatinine 11/ 0.43. Albumin 1.7. Patient remains afebrile, stable hemodynamically. Tolerating room air with oxygen saturation in the high 90s. Telephone call to patient's niece/HCS Krystin Matthew. Left message in voicemail. . Family/friend interactions See interval note. . Advance Directives Living Will: Never completed Health Care Surrogate: Copy in medical record Advance Directive Specifics Date completed: 03/10/2017. Health Care Surrogate(s): Patient has designated her leatha Matthew as primary healthcare surrogate, alternate surrogate is sarah Matthew. . Significant change in goals: Goals of therapy remain unchanged. . Objective Vital Signs Date Time Temp Pulse Resp B/P (MAP) Pulse Ox O2 Delivery O2 Flow Rate FiO2 03/22/17 12:00 99.2 67 16 131/59 (83) 99 03/22/17 12:00 99 Room Air 03/22/17 10:35 73 03/22/17 08:00 99.6 79 16 157/69 (98) 99 03/22/17 08:00 99 Room Air 03/22/17 04:00 98.8 72 20 121/74 (90) 99 03/22/17 04:00 72 03/22/17 00:00 98.7 68 20 128/61 (83) 98 03/22/17 00:00 68 03/21/17 20:00 98.4 75 22 124/70 (88) 100 03/21/17 20:00 75 03/21/17 19:00 95 Room Air 03/21/17 16:00 73 03/21/17 16:00 98.8 64 16 130/59 (82) 100 Intake & Output 03/22/17 03/22/17 07:00 19:00 Intake Total 778 ml Balance 778 ml Tube Feeding 518 ml Other 260 ml # Voids 4 # Bowel Movements 1 Physical Exam CONSTITUTIONAL/GENERAL: This is an elderly, cachectic female resting in bed in no acute distress. Lethargic. TUBES/LINES/DRAINS: PIV's upper extremities, SCDs, PEG tube, abdominal bracing place. EYES: Pupils equal and round and reactive. Extraocular motions intact. No scleral icterus. No injection or drainage. ENT: Hearing appears normal. Nose without bleeding or purulent drainage. Moist oral mucosa CARDIOVASCULAR: regular rate and rhythm without murmur. No JVD. Peripheral pulses symmetric. RESPIRATORY/CHEST: Symmetric, unlabored respirations. On room air. Clear to auscultation. Breath sounds equal bilaterally. GASTROINTESTINAL: Abdomen soft, flat, non-tender, nondistended. No guarding. Bowel sounds normoactive. PEG tube in place. GENITOURINARY: Without palpable bladder distension. MUSCULOSKELETAL: Extremities without clubbing, cyanosis, or edema. Muscular atrophy to all 4 extremities. NEUROLOGICAL: Awake and alert to self, place and situation, intermittently confused. She follows very simple commands. She moves all 4 extremities with generalized weakness. PSYCHIATRIC: no apparent anxiety or distress. . Diagnostic Tests Laboratory Laboratory Tests Test 03/20/17 04:21 03/22/17 05:38 Prothrombin Time 10.7 SEC (9.8-11.6) Prothromb Time International Ratio 1.1 RATIO Blood Urea Nitrogen 12 MG/DL (7-18) 11 MG/DL (7-18) Creatinine 0.18 MG/DL (0.50-1.00) 0.43 MG/DL (0.50-1.00) Random Glucose 105 MG/DL (74-106) 198 MG/DL (74-106) Calcium Level 9.1 MG/DL (8.5-10.1) 8.7 MG/DL (8.5-10.1) Sodium Level 140 MEQ/L (136-145) 141 MEQ/L (136-145) Potassium Level 3.6 MEQ/L (3.5-5.1) 3.7 MEQ/L (3.5-5.1) Chloride Level 107 MEQ/L (98-107) 106 MEQ/L (98-107) Carbon Dioxide Level 27.8 MEQ/L (21.0-32.0) 28.9 MEQ/L (21.0-32.0) Anion Gap 5 MEQ/L (5-15) 6 MEQ/L (5-15) Estimat Glomerular Filtration Rate 385 ML/MIN (>89) 141 ML/MIN (>89) White Blood Count 7.4 TH/MM3 (4.0-11.0) Red Blood Count 2.53 MIL/MM3 (4.00-5.30) Hemoglobin 8.1 GM/DL (11.6-15.3) Hematocrit 23.8 % (35.0-46.0) Mean Corpuscular Volume 94.3 FL (80.0-100.0) Mean Corpuscular Hemoglobin 32.2 PG (27.0-34.0) Mean Corpuscular Hemoglobin Concent 34.1 % (32.0-36.0) Red Cell Distribution Width 15.5 % (11.6-17.2) Platelet Count 303 TH/MM3 (150-450) Mean Platelet Volume 8.9 FL (7.0-11.0) Neutrophils (%) (Auto) 69.3 % (16.0-70.0) Lymphocytes (%) (Auto) 18.2 % (9.0-44.0) Monocytes (%) (Auto) 10.4 % (0.0-8.0) Eosinophils (%) (Auto) 1.9 % (0.0-4.0) Basophils (%) (Auto) 0.2 % (0.0-2.0) Neutrophils # (Auto) 5.1 TH/MM3 (1.8-7.7) Lymphocytes # (Auto) 1.3 TH/MM3 (1.0-4.8) Monocytes # (Auto) 0.8 TH/MM3 (0-0.9) Eosinophils # (Auto) 0.1 TH/MM3 (0-0.4) Basophils # (Auto) 0.0 TH/MM3 (0-0.2) CBC Comment DIFF FINAL Differential Comment Total Protein 6.8 GM/DL (6.4-8.2) Albumin 1.7 GM/DL (3.4-5.0) Phosphorus Level 2.4 MG/DL (2.5-4.9) Magnesium Level 1.6 MG/DL (1.5-2.5) Alkaline Phosphatase 65 U/L (45-117) Aspartate Amino Transf (AST/SGOT) 20 U/L (15-37) Alanine Aminotransferase (ALT/SGPT) 13 U/L (10-53) Total Bilirubin 0.2 MG/DL (0.2-1.0) Result Diagram: 03/22/17 0538 03/22/17 0538 Procedures * 03/20/17 -EGD with PEG tube placement. . Assessment and Plan Disease Oriented Problem List: (1) Atrial fibrillation with RVR (2) Electrolyte abnormality (3) Nausea (4) Subdural hematoma (5) Cachexia (6) Physical deconditioning Symptom Scale: (1) Debility 0-10 Scale: Unable to quantify Comment: Progressive. (2) Abdominal pain 0-10 Scale: Unable to quantify Comment: Unclear etiology. Pertinent Non-Medical Issues Psychosocial: Patient originally from [facility]. Moved to [place] 15 years ago. Patient is , 5 years ago. Patient has an adult daughter , Elle who is 47 years old with Down syndrome. 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 Primary language is Danish. Spiritual: Anabaptism luisa. Legal: Advance directives completed. Ethical issues impacting care: No ethical issues identified. . Important Contacts Niece/HCS Krystin Matthew , . . Prognosis Mrs. Matthew is an 81 female with a medical history of Alzheimer's dementia, diabetes mellitus, hypertension and acute-subacute subdural hematoma. Patient presented to emergency room via EMS on 03/09/17 from nursing home facility for evaluation of near syncopal episode and nausea vomiting. Patient with multiple recent acute hospitalizations, this is patient's seventh acute hospitalization in the past 4 months. Patient in and out nursing home facilities, reporting progressive physical deconditioning, weight loss. Patient is cachectic, frail. Patient at high risk for further complications, continue decline and . . Code Status: No Code Plan * CODE STATUS: No code. DNR/DNI. This has been confirmed with patient's niece/ HCS Krystin. Community DNR left at bedside for completion. Will follow-up. * HEALTHCARE DECISION-MAKING: Patient with baseline Alzheimer's dementia. Alert and oriented x self and situation, intermittent confusion. Worsening confusion noted today. Mostly coherent conversation conducted in her [place] language Danish. Pt has designated her niece Krystin Matthew as primary healthcare surrogate decision maker, alternate surrogate is step son Abdiel Matthew. Given patient's progressive confusion, palliative care recommends shared decision- making with HCS/niece Krystin Matthew. * GOALS OF CARE: 03/22/16: Patient's niluis Matthew acting as healthcare surrogate decision maker, assisted by additional family members has elected to proceed with aggressive management to include PEG tube placement. Family electing to maximize medical management short of NO code with the goal of returning patient to [facility] for rehabilitation. Patient's overall poor prognosis, progressive decline and multiple comorbidities to include failure to thrive, cachexia, malnutrition, dysphagia, profound physical deconditioning have been reviewed with family at length. * SYMPTOMS: * =Debility: Progressive. Patient with multiple acute hospitalizations in the past 4 months. Has been receiving rehabilitation at nursing home facility. Patient is cachectic, profound physical deconditioning with history of multiple falls. Likely to continue to worsen. Patient and family requesting to return patient to [facility] for physical strengthening. * = Abdominal pain: Unclear etiology. Patient with similar complaints on prior hospitalizations. GI has been previously consulted in February, -No acute findings. Passing flatus, KUB negative for obstruction. No apparent pathology. Would avoid use of opiates as this may further alter patient's mental status, would further slow GI motility. * = Dysphagia: Now status post PEG tube placement, receiving total feeding. * Palliative care contact information has been provided to patient's family. * Palliative care will continue to follow-up as needed for further clarifications of goals of care as patient's clinical course continues to evolve. . Time Spent Total Floor Time (mins): 23 (Total time to include review medical records, physical exam, telephone call to patient's niece/healthcare surrogate.) >50% Counseling/Coord of Care: Yes Attestation To help prompt me to consider important information that might be impacting today's encounter and assessment, information from prior notes written by myself or my colleagues may have been "brought forward" into today's note. My signature on this note, however, is an attestation that I personally performed the exam, history, and/or decision-making noted today, and, unless otherwise indicated, the interactions with patient, family, and staff as well as the review of records all occurred today. I also attest that the listed assessment and stated plan reflect my best clinical judgment today based on the combination of historical information, prior notes, and today's exam/ interactions. When time spent is documented, it refers only to time spent today by the signer, or if indicated, combined time spent today by collaborating physician/nurse practitioner. Amirah Martinez Mar 22, 2017 14:42
[2017-03-22 14:56] VITALS: PULSE 71
== END 2017-03-22 16:45 | DRG 309 ==
LOC: NEDAMB 13:56 → NEDA 17:00 → HCIS 18:58 → N03A 03-12 08:02 → N03B 03-14 17:35
PROVIDERS: ADMIT Internal Medicine Critical Care Medicine; ATTEND Internal Medicine Critical Care Medicine
PROC: 0DH63UZ Insertion of Feeding Device into Stomach, Percutaneous Approach (ICD-10-PCS; principal; 2017-03-20 11:40)
DX: I48.91 Unspecified atrial fibrillation (principal); E46 Unspecified protein-calorie malnutrition; R64 Cachexia; E87.0 Hyperosmolality and hypernatremia; R13.12 Dysphagia, oropharyngeal phase; G91.2 (Idiopathic) normal pressure hydrocephalus; K26.9 Duodenal ulcer, unspecified as acute or chronic, without hemorrhage or perforation; R56.9 Unspecified convulsions; R47.01 Aphasia; E11.9 Type 2 diabetes mellitus without complications; I10 Essential (primary) hypertension; D64.9 Anemia, unspecified; G30.9 Alzheimer's disease, unspecified; F02.80 Dementia in other diseases classified elsewhere, unspecified severity, without behavioral disturbance, psychotic disturbance, mood disturbance, and anxiety; R55 Syncope and collapse; R11.2 Nausea with vomiting, unspecified; E87.6 Hypokalemia; Z87.11 Personal history of peptic ulcer disease; Z79.4 Long term (current) use of insulin; E78.00 Pure hypercholesterolemia, unspecified; S06.5X9D Traumatic subdural hemorrhage with loss of consciousness of unspecified duration, subsequent encounter; Z87.820 Personal history of traumatic brain injury; I47.1 Supraventricular tachycardia; Z51.5 Encounter for palliative care; Z82.79 Family history of other congenital malformations, deformations and chromosomal abnormalities; Z91.81 History of falling; E78.5 Hyperlipidemia, unspecified; Z66 Do not resuscitate; R62.7 Adult failure to thrive; D18.1 Lymphangioma, any site; E86.0 Dehydration; K21.9 Gastro-esophageal reflux disease without esophagitis; E05.00 Thyrotoxicosis with diffuse goiter without thyrotoxic crisis or storm; F41.9 Anxiety disorder, unspecified; R29.810 Facial weakness; E04.1 Nontoxic single thyroid nodule
CPT/HCPCS: 70450; 70496; 70498; 70553; 71045; 74018; 76536; 76937; 80048; 80053; 81001; 82435; 82550; 82565; 82947; 83036; 83605; 83690; 83735; 83930; 83935; 84100; 84132; 84134; 84295; 84300; 84432; 84439; 84443; 84445; 84481; 84484; 84520; 85014; 85018; 85025; 85384; 85610; 85730; 86376; 86800; 86850; 86900; 86901; 87040; 87641; 93005; 93306; 93880; 95819; 96361; 96374; A9579; J0690; J1953; J2060; J2270; J2370; J2405; J3475; J3480; J7030; Q9967